=== PATIENT | male | born 1945 | race Two or more races ===

== ENCOUNTER → 2016-04-30 | Outpatient (CLI) | payer MEDICARE, OTHER ==
[~2016-04-30] MED LIST: ALLOPURINOL100 M1 ORAL; ASPIRIN81 M1 ORAL; ATOVASTATIN; ATROVENT HFA12.9 GM IH; CALCIUM +D & M1 EAC1 ORAL; CARAFATE1 G1 ORAL; CENTRUM COMPLE1 EAC1 PO; CLOPIDOGREL75 MG PO; COLCRYS0.6 MG ORAL; COMBIGAN EYE DRO5 ML OP; DOCUSATE SODIU100 MG ORAL; ESCITALOPRAM OX10 MG ORAL; FEOSOL1 TAB ORAL; FLUOXETINE HCL20 M1 ORAL; FOLIC ACID1 MG ORAL; FUROSEMIDE40 MG ORAL; GABAPENTIN300 MG ORAL; HUMALOG100 UNIT/2 SUBQ; HYDRALAZINE HCL25 M1 PO; ILEVRO1.7 ML OP; ISOSORBIDE DINIT5 MG PO; LANTUS100 UNIT/1 SUBQ; LIPITOR80 MG ORAL; LIPITOR80 MG PO; LOVAZA1 GM PO; METOLAZONE5 MG PO; METOPROLOL SUC100 MG ORAL; METOPROLOL TART50 MG ORAL; MINOXIDIL; MINOXIDIL2.5 MG PO; MINOXIDIL60 ML TP; NEPHRO-VITE TA0.8 MG PO; NEPHROVITE1 TAB ORAL; NEXIUM20 MG ORAL; NORVASC10 MG ORAL; NOVOLOG100 UNIT/4 SQ; OMEGA 3 FISH O1 EACH PO; OMEPRAZOLE40 M1 ORAL; PENTOXIFYLLINE400 MG ORAL; PLAVIX75 MG ORAL; SENSIPAR30 MG ORAL; SENSIPAR60 MG ORAL; SERTRALINE HCL25 MG ORAL; SERTRALINE HCL25 MG PO; SPIRIVA18 MCG INH; TERAZOSIN HCL10 MG PO; TRAZODONE HCL150 MG ORAL; VITAMIN D1000 UNI1 ORAL
[2016-04-30 14:54] VITALS: BP 104/42
--- NOTE | 2016-04-30 15:36 | GI Progress Note ---
Assessment/Plan Problems: (1) GERD (gastroesophageal reflux disease) ICD Codes: K21.9 - Gastro-esophageal reflux disease without esophagitis SNOMED: 357289270 (2) Abdominal pain ICD Codes: R10.9 - Unspecified abdominal pain SNOMED: 23580727 (3) Constipation ICD Codes: K59.00 - Constipation, unspecified SNOMED: 35419530 (4) Dialysis patient ICD Codes: Z99.2 - Dependence on renal dialysis SNOMED: 366643631 (5) Diabetes mellitus ICD Codes: E11.9 - Type 2 diabetes mellitus without complications SNOMED: 40328355 (6) Submucosal lesion of stomach ICD Codes: K31.89 - Other diseases of stomach and duodenum SNOMED: 72952279 (7) S/P colonoscopic polypectomy ICD Codes: Z98.89 - Other specified postprocedural states SNOMED: 70197549, 958338174, 083145740, [id number] Status: stable Status Narrative Seen with Dr. Camarena. Assessment/Plan scheduled for EUS to evaluated Gastric submucosal lesion 05/12/15 ordered abdominal U/S for abnormal LFTs labs to be drawn on procedure date; CBC, CMP, Hep panel, iron panel. The patient was seen and examined at bedside and all new and available data was reviewed in the patients chart. I agree with the above findings, impression and plan. (Patient seen earlier today. Signature stamp does not reflect patient encounter time.). -Ezra Camarena MD Subjective Gastrointestinal/Abdominal: Reports: abdominal pain Subjective alternating diarrhea and constipation Objective Last 24 Hour Vital Signs Date Time Temp Pulse Resp B/P Pulse Ox O2 Delivery O2 Flow Rate FiO2 04/30/16 14:54 98.6 59 18 104/42 96 General Appearance: no apparent distress, alert Cardiovascular: normal rate Respiratory/Chest: normal breath sounds, no respiratory distress Abdominal Exam: normal bowel sounds, non tender, soft Extremities: normal range of motion Objective Dialysis T,TR, Sat scheduled EGD/EUS in Jan 2016, but was cancelled by patient because of sickness. ETOH abuse >> quit 10 year ago Pricilla Pollack N.P. Apr 30, 2016 15:36 EZRA CAMARENA May 05, 2016 08:13
== END | disposition home or self-care (01) ==
LOC: PAN 14:20
DX: K21.9 Gastro-esophageal reflux disease without esophagitis (principal); R10.9 Unspecified abdominal pain; K59.00 Constipation, unspecified; Z99.2 Dependence on renal dialysis; E11.9 Type 2 diabetes mellitus without complications; K31.89 Other diseases of stomach and duodenum; Z98.890 Other specified postprocedural states
CPT/HCPCS: 99212

== ENCOUNTER 2016-09-06 19:14 | Inpatient (IN) | payer MEDICARE, OTHER ==
[~2016-09-06] VITALS: Ht 175.3 cm; Wt 84.1 kg
[~2016-09-06 19:14] MED LIST changes: +Calcium Chloride 10% 10ml carpuject IVP ONE; +EPINEPHrine 1mg/10ml Syringe IV ONE; +Sodium Bicarbonate 50ml Carp ONE
--- NOTE | 2016-09-06 19:49 | Emergency Room Report ---
History of Present Illness General Chief Complaint: Dyspnea/Respdistress Source: Patient Present Illness HPI Patient is a 71-year-old male presented after increased generalized weakness and dyspnea. Patient was having difficulty standing. Patient had prior history of end-stage renal disease and had missed dialysis. The patient is also diabetic. He is normally dialyzed Thursday. The patient was having difficulty standing complained of some buttock pain after a recent fall. He denied as pain to a specific location of his lower extremities. The patient had been noted be increased shortness of breath for several hours Allergies: Coded Allergies: NIACIN (Verified Allergy, Unknown, ITCHING, 01/30/12) Patient History Past Medical History: DM, HTN Reviewed Nursing Documentation: PMH: Agreed, PSxH: Agreed Nursing Documentation-PMH Hx Cardiac Problems: Yes - HEART FAILURE Hx Hypertension: Yes Hx Asthma: No Hx Diabetes: Yes Hx Cancer: No Hx Gastrointestinal Problems: Yes Hx Dialysis: Yes - Hx Neurological Problems: No Hx Cerebrovascular Accident: Yes - 2006 Review of Systems All Other Systems: negative except mentioned in HPI Physical Exam Vital Signs Date Time Temp Pulse Resp B/P Pulse Ox O2 Delivery O2 Flow Rate FiO2 09/06/16 19:25 99.0 77 16 158/64 88 Room Air Sp02 EP Interpretation: reviewed, normal General Appearance: normal inspection, alert, moderate distress, Chronically Ill Head: atraumatic ENT: normal ENT inspection, hearing grossly normal, normal voice Neck: normal inspection, full range of motion, supple, no bony tend Respiratory: normal inspection, no retraction, respiratory distress, rhonchi Cardiovascular #1: regular rate, rhythm, edema Gastrointestinal: normal inspection, normal bowel sounds, non tender, soft, no guarding, no hernia Genitourinary: no CVA tenderness Musculoskeletal: normal inspection, back normal, normal range of motion Neurologic: normal inspection, alert, responsive, speech normal, motor weakness - bilateral lower extremities Psychiatric: normal inspection, judgement/insight normal, mood/affect normal Skin: no rash Medical Decision Making Diagnostic Impression: Primary Impression: Diabetes mellitus Additional Impressions: CHF (congestive heart failure) ESRD (end stage renal disease) Lower extremity pain ER Course Patient presented for shortness of breath. Differential included but was not limited to anemia, pneumonia, pneumothorax, myocardial infarction, pericardial effusion, congestive heart failure, acidosis. Because of complexity of patient' s case laboratory testing and imaging studies were ordered.The patient required assistance and to the [facility] because of weakness . I EKG interpreted by me showed normal sinus rhythm with a rate of 77 there was noted the some the lateral T-wave inversion. There were slight peaking T wave changes.Patient was given a breathing treatment with albuterol. The patient was noted to be initially hypoxic with O2 saturation in the 80s. He was started on BiPAP. Patient was given IV calcium for hyperkalemia as well as on albuterol nebulizer treatments. The patient was discussed with Dr. Harrison Delatorre for inpatient management due to patient's fluid overload as well as hyperkalemia management. Dr. Delatorre was advised the patient would need emergent dialysis due to patient's fluid overload and hyperkalemia. The patient is admitted to [facility] on BiPAP. Labs Test 09/06/16 19:45 09/07/16 00:35 White Blood Count 12.6 K/UL (4.8-10.8) Red Blood Count 4.29 M/UL (4.70-6.10) Hemoglobin 13.9 G/DL (14.2-18.0) Hematocrit 41.0 % (42.0-52.0) Mean Corpuscular Volume 96 FL (80-99) Mean Corpuscular Hemoglobin 32.5 PG (27.0-31.0) Mean Corpuscular Hemoglobin Concent 33.9 G/DL (32.0-36.0) Red Cell Distribution Width 17.5 % (11.6-14.8) Platelet Count 139 K/UL (150-450) Mean Platelet Volume 6.5 FL (6.5-10.1) Neutrophils (%) (Auto) 85.7 % (45.0-75.0) Lymphocytes (%) (Auto) 6.9 % (20.0-45.0) Monocytes (%) (Auto) 6.5 % (1.0-10.0) Eosinophils (%) (Auto) 0.1 % (0.0-3.0) Basophils (%) (Auto) 0.8 % (0.0-2.0) Prothrombin Time 11.4 SEC (9.30-11.50) Prothromb Time International Ratio 1.1 (0.9-1.1) Activated Partial Thromboplast Time 31 SEC (23-33) Sodium Level 139 mEQ/L (135-145) Potassium Level 6.3 mEQ/L (3.4-4.9) Chloride Level 97 mEQ/L (98-107) Carbon Dioxide Level 25 mEQ/L (20-30) Anion Gap 17 (5-15) Blood Urea Nitrogen 36 mg/dL (7-23) Creatinine 7.6 mg/dL (0.7-1.2) Estimat Glomerular Filtration Rate 7.1 mL/min (>60) Glucose Level 91 mg/dL (74-106) Calcium Level 9.8 mg/dL (8.6-10.2) Total Bilirubin 0.5 mg/dL (0.0-1.2) Aspartate Amino Transf (AST/SGOT) 14 U/L (5-40) Alanine Aminotransferase (ALT/SGPT) 8 U/L (3-41) Alkaline Phosphatase 48 U/L (40-129) Troponin I < 0.30 ng/mL (<=0.30) Total Protein 7.1 g/dL (6.6-8.7) Albumin 4.1 g/dL (3.5-5.2) Globulin 3.0 g/dL Albumin/Globulin Ratio 1.3 (1.0-2.7) Arterial Blood pH 7.252 (7.350-7.450) Arterial Blood Partial Pressure CO2 53.2 mmHg (35.0-45.0) Arterial Blood Partial Pressure O2 172.1 mmHg (75.0-100.0) Arterial Blood HCO3 22.9 mmol/L (22.0-26.0) Arterial Blood Oxygen Saturation 98.2 % (92.0-98.0) Arterial Blood Base Excess -4.7 Chas Test Positive Chest X-Ray Diagnostic Results EP Interpretation: Yes Findings: no effusion, no pneumothorax, other - mild pulmonary edema vascular congestion Number of Views: 1 Last Vital Signs Date Time Temp Pulse Resp B/P Pulse Ox O2 Delivery O2 Flow Rate FiO2 09/06/16 19:25 99.0 77 16 158/64 88 Room Air Status: unchanged Disposition: ADMITTED INPATIENT Condition: Critical Dav Chang Sep 06, 2016 19:49
[2016-09-06 20:20] LABS: MEAN CORPUSCULAR HEMOGLOBIN 32.5 PG (27.0-31.0); MEAN CORPUSCULAR HGB CONC 33.9 G/DL (32.0-36.0); MEAN CORPUSCULAR VOLUME 96 FL (80-99); MEAN PLATELET VOLUME 6.5 FL (6.5-10.1); PLATELET COUNT 139 K/UL (150-450); RED BLOOD COUNT 4.29 M/UL (4.70-6.10); RED CELL DISTRIBUTION WIDTH 17.5 % (11.6-14.8); WHITE BLOOD COUNT 12.6 K/UL (4.8-10.8)
[2016-09-06 20:21] LABS: NEUTROPHILS % (AUTO) 85.7 % (45.0-75.0)
[2016-09-06 20:22] LABS: BASOPHILS % (AUTO) 0.8 % (0.0-2.0); EOSINOPHILS % (AUTO) 0.1 % (0.0-3.0); LYMPHOCYTES % (AUTO) 6.9 % (20.0-45.0); MONOCYTES % (AUTO) 6.5 % (1.0-10.0)
[2016-09-06 20:30] LABS: INR 1.1 (0.9-1.1); PROTHROMBIN TIME 11.4 SEC (9.30-11.50)
[2016-09-06 20:36] VITALS: BP 137/86
[2016-09-06 20:44] LABS: TROPONIN I < 0.30 ng/mL (<=0.30)
[2016-09-06] MEDS ORDERED: DuoNeb 0.5-3(2.5)mg/3ml neb HHN ONE (20:45)
[2016-09-06 20:47] LABS: ALBUMIN/GLOBULIN RATIO 1.3 (1.0-2.7); CALCIUM 9.8 mg/dL (8.6-10.2); CREATININE 7.6 mg/dL (0.7-1.2); GLOMERULAR FILTRATION RATE 7.1 mL/min (>60); TOTAL PROTEIN 7.1 g/dL (6.6-8.7)
[2016-09-06 20:52] LABS: POTASSIUM 6.3 mEQ/L (3.4-4.9)
[2016-09-06] MEDS ORDERED: Calcium Gluconate 1gm/10ml vial IVP ONE (21:00)
[2016-09-06] MEDS ORDERED: UNOBMED (21:59)
[2016-09-06 22:00] VITALS: BP 164/51
[2016-09-06 22:20] VITALS: BP 181/74
[2016-09-06] MEDS ORDERED: Miralax 17gm pkt ORAL PRN (23:00)
[2016-09-06 23:45] VITALS: BP 176/69
[2016-09-07] VITALS (26 sets, daily range): BP systolic 83–193; BP diastolic 29–103
[2016-09-07] MEDS ORDERED: Sodium Polystyrene Sulfonate 15gm Powder NG ONE
[2016-09-07 00:51] LABS: ABG BASE EXCESS -4.7; ABG PCO2 53.2 mmHg (35.0-45.0)
[2016-09-07 00:52] LABS: ABG ALLEN TEST POSITIVE
[2016-09-07] MEDS ORDERED: PROZAC20 MG ORAL (01:52)
[2016-09-07] MEDS ORDERED: CALCIUM600 M1 PO (01:52)
[2016-09-07] MEDS ORDERED: Heparin Sod 1000 units/ml 10ml INJ ONE (03:45)
--- NOTE | 2016-09-07 05:26 | Emergency Room Report ---
History of Present Illness General Chief Complaint: Dyspnea/Respdistress Source: Medical Record Present Illness HPI Patient is 71-year-old male recently seen by me in emergency Department who was noted to have bradycardic arrest after being admitted to [facility]. The patient was reportedly taken off of BiPAP after he poorly tolerated and refused further BiPAP.The patient was reportedly sitting on a bedside commode when he became unresponsive. The patient was noted to have become unresponsive. He was assisted to the floor by nursing staff. The patient was noted to have prior history of hyperkalemia and had previously been given IV calcium as well as albuterol for hyperkalemia. Allergies: Coded Allergies: NIACIN (Verified Allergy, Unknown, ITCHING, 01/30/12) Nursing Documentation-[facility] Past Medical History Deferred: Patient Unconscious Past Medical History: Deferred Hx Cardiac Problems: Yes Hx Hypertension: Yes Hx Asthma: No Hx Diabetes: Yes Hx Cancer: No Hx Gastrointestinal Problems: Yes Hx Dialysis: Yes - Hx Neurological Problems: No Hx Cerebrovascular Accident: Yes - 2006 Physical Exam Vital Signs Date Time Temp Pulse Resp B/P Pulse Ox O2 Delivery O2 Flow Rate FiO2 09/06/16 19:25 99.0 77 16 158/64 88 Room Air 09/06/16 19:30 2.0 09/06/16 20:47 50 Procedures CPR/Code Blue CPR/Code Blue Narrative See CODE BLUE narrative for the medications. The patient was given IV calcium as well as IV bicarbonate and single dose of IV epinephrine. Patient started on oxygen initially via [id number] and was subsequently intubated after laryngoscopy [id number] medication during code. The patient had a subsequent return spontaneous circulation. Dr. Harrison Delatorre was notified of the patient' s changes status as well as possibly requiring further imaging after being assisted to the floor. Intubation Intubation : Consent: Emergent Intubation Method: orotracheal Tube Size (cm): 8.0 Breath Sounds after Intubation: equal Intubation Complications: no complications Post Intubation Xray: Yes Progress/Xray Impression: x-ray imaging showed adequate endotracheal tube with worsen pulmonary edema Attempts: One Complications: None Medical Decision Making Diagnostic Impression: Primary Impression: Diabetes mellitus Additional Impressions: CHF (congestive heart failure) Lower extremity pain ESRD (end stage renal disease) Last Vital Signs Date Time Temp Pulse Resp B/P Pulse Ox O2 Delivery O2 Flow Rate FiO2 09/07/16 05:06 87 18 144/88 100 Mechanical Ventilator 80 09/07/16 04:02 99.0 09/06/16 22:35 4.0 Disposition: ADMITTED INPATIENT Condition: Critical Referrals: NOT CHOSEN IPA/,REFERRING (PCP) Dav Chang Sep 07, 2016 05:26
[2016-09-07 05:51] LABS: MEAN CORPUSCULAR HEMOGLOBIN 29.7 PG (27.0-31.0); MEAN CORPUSCULAR HGB CONC 31.2 G/DL (32.0-36.0); MEAN CORPUSCULAR VOLUME 95 FL (80-99); MEAN PLATELET VOLUME 7.4 FL (6.5-10.1); PLATELET COUNT 151 K/UL (150-450); RED BLOOD COUNT 4.39 M/UL (4.70-6.10); RED CELL DISTRIBUTION WIDTH 17.8 % (11.6-14.8); WHITE BLOOD COUNT 15.9 K/UL (4.8-10.8)
[2016-09-07 06:56] LABS: ALBUMIN/GLOBULIN RATIO 1.1 (1.0-2.7); CALCIUM 11.5 mg/dL (8.6-10.2); CREATININE 7.3 mg/dL (0.7-1.2); GLOMERULAR FILTRATION RATE 7.5 mL/min (>60)
[2016-09-07 07:02] LABS: POTASSIUM 6.7 mEQ/L (3.4-4.9)
[2016-09-07] MEDS: Atorvastatin 80mg tab ORAL SCH (08:46)
[2016-09-07] MEDS: Minoxidil 2.5mg tab ORAL SCH ×2 (08:46→18:00)
--- NOTE | 2016-09-07 10:09 | Consultation ---
Consult Note Assessment/Plan Renal consult dictated # [id number] CANDICE BREAUX Sep 07, 2016 10:09
[2016-09-07 10:17] LABS: BAND NEUTROPHILS % (MANUAL) 3 % (0-8); LYMPHOCYTES % (MANUAL) 2 % (20-45); NEUTROPHILS % (MANUAL) 94 % (45-75); TOTAL CELLS COUNTED 100
[2016-09-07 10:18] LABS: ANISOCYTOSIS 1+; BASOPHILS % (MANUAL) 0 % (0-2); EOSINOPHILS % (MANUAL) 0 % (0-3); PLATELET ESTIMATE ADEQUATE; PLATELET MORPHOLOGY NORMAL
[2016-09-07 10:22] LABS: ALBUMIN/GLOBULIN RATIO 1.1 (1.0-2.7); CALCIUM 10.2 mg/dL (8.6-10.2); GLOMERULAR FILTRATION RATE 11.5 mL/min (>60); POTASSIUM 4.8 mEQ/L (3.4-4.9)
--- NOTE | 2016-09-07 10:55 | Consultation ---
Consult Note Assessment/Plan [id number] vdrf code blue hyperkalemia rf on hd ?anoxic encephalopathy ?seizure dm, htn, hld htn KOLTON RENTERIA DO Sep 07, 2016 10:55
[2016-09-07] MEDS: LORazepam Inj 2mg/ml 1ml IV PRN ×3 (10:59→23:44)
--- NOTE | 2016-09-07 11:14 | Diagnostic Imaging Report ---
Indication: Tube placement Comparison: 09/06/16 A single view chest radiograph was obtained. Findings: Patchy interstitial alveolar infiltrates present cardiomegaly. Nasogastric tube, endotracheal tube and Gorge catheters are in good position. Impression: Infiltrates versus pulmonary edema. Tubes and lines satisfactory
--- NOTE | 2016-09-07 11:21 | Diagnostic Imaging Report ---
Indication: Dyspnea Comparison: None A single view chest radiograph was obtained. Findings: Interstitial edema is present with prominent vascularity and heart size. Right permacath is noted. Bones are osteopenic. Impression: Moderate interstitial edema
[2016-09-07 11:52] LABS: TROPONIN I < 0.30 ng/mL (<=0.30)
[2016-09-07 11:59] LABS: ABG ALLEN TEST POSITIVE; ABG BASE EXCESS 4.3; ABG PCO2 38.5 mmHg (35.0-45.0)
[2016-09-07] MEDS ORDERED: Phenytoin 1,000 MG in NS 275 ML IVPB ONE (12:00)
[2016-09-07] MEDS: Piperacillin/Tazobactam 2.25 GM in D5W 55 ML IVPB SCH ×2 (13:00→22:47)
[2016-09-07] MEDS ORDERED: Vancomycin 1gm/D5W 275ml IVPB ONE ×2 (14:00)
--- NOTE | 2016-09-07 15:17 | Neurology Progress Note ---
Objective Physical Exam Last Vital Signs Date Time Temp Pulse Resp B/P Pulse Ox O2 Delivery O2 Flow Rate FiO2 09/07/16 14:00 99.8 09/07/16 13:13 71 18 60 09/07/16 12:00 136/60 100 Mechanical Ventilator 09/06/16 22:35 4.0 Laboratory Tests Test 09/06/16 19:45 09/07/16 00:35 09/07/16 03:40 09/07/16 09:40 White Blood Count 12.6 K/UL (4.8-10.8) H 15.9 K/UL (4.8-10.8) H Red Blood Count 4.29 M/UL (4.70-6.10) L 4.39 M/UL (4.70-6.10) L Hemoglobin 13.9 G/DL (14.2-18.0) L 13.0 G/DL (14.2-18.0) L Hematocrit 41.0 % (42.0-52.0) L 41.8 % (42.0-52.0) L Mean Corpuscular Volume 96 FL (80-99) 95 FL (80-99) Mean Corpuscular Hemoglobin 32.5 PG (27.0-31.0) H 29.7 PG (27.0-31.0) Mean Corpuscular Hemoglobin Concent 33.9 G/DL (32.0-36.0) 31.2 G/DL (32.0-36.0) L Red Cell Distribution Width 17.5 % (11.6-14.8) H 17.8 % (11.6-14.8) H Platelet Count 139 K/UL (150-450) L 151 K/UL (150-450) Mean Platelet Volume 6.5 FL (6.5-10.1) 7.4 FL (6.5-10.1) Neutrophils (%) (Auto) 85.7 % (45.0-75.0) H % (45.0-75.0) Lymphocytes (%) (Auto) 6.9 % (20.0-45.0) L % (20.0-45.0) Monocytes (%) (Auto) 6.5 % (1.0-10.0) % (1.0-10.0) Eosinophils (%) (Auto) 0.1 % (0.0-3.0) % (0.0-3.0) Basophils (%) (Auto) 0.8 % (0.0-2.0) % (0.0-2.0) Prothrombin Time 11.4 SEC (9.30-11.50) Prothromb Time International Ratio 1.1 (0.9-1.1) Activated Partial Thromboplast Time 31 SEC (23-33) Sodium Level 139 mEQ/L (135-145) 140 mEQ/L (135-145) 148 mEQ/L (135-145) H Potassium Level 6.3 mEQ/L (3.4-4.9) *H 6.7 mEQ/L (3.4-4.9) *H 4.8 mEQ/L (3.4-4.9) Chloride Level 97 mEQ/L (98-107) L 99 mEQ/L (98-107) 104 mEQ/L (98-107) Carbon Dioxide Level 25 mEQ/L (20-30) 22 mEQ/L (20-30) 28 mEQ/L (20-30) Anion Gap 17 (5-15) H 19 (5-15) H 16 (5-15) H Blood Urea Nitrogen 36 mg/dL (7-23) H 37 mg/dL (7-23) H 24 mg/dL (7-23) H Creatinine 7.6 mg/dL (0.7-1.2) H 7.3 mg/dL (0.7-1.2) H 5.0 mg/dL (0.7-1.2) H Estimat Glomerular Filtration Rate 7.1 mL/min (>60) 7.5 mL/min (>60) 11.5 mL/min (>60) Glucose Level 91 mg/dL (74-106) 106 mg/dL (74-106) 152 mg/dL (74-106) H Calcium Level 9.8 mg/dL (8.6-10.2) 11.5 mg/dL (8.6-10.2) H 10.2 mg/dL (8.6-10.2) Total Bilirubin 0.5 mg/dL (0.0-1.2) 0.8 mg/dL (0.0-1.2) 0.9 mg/dL (0.0-1.2) Aspartate Amino Transf (AST/SGOT) 14 U/L (5-40) 78 U/L (5-40) H 61 U/L (5-40) H Alanine Aminotransferase (ALT/SGPT) 8 U/L (3-41) 70 U/L (3-41) H 64 U/L (3-41) H Alkaline Phosphatase 48 U/L (40-129) 58 U/L (40-129) 54 U/L (40-129) Troponin I < 0.30 ng/mL (<=0.30) < 0.30 ng/mL (<=0.30) Total Protein 7.1 g/dL (6.6-8.7) 7.0 g/dL (6.6-8.7) 7.0 g/dL (6.6-8.7) Albumin 4.1 g/dL (3.5-5.2) 3.7 g/dL (3.5-5.2) 3.7 g/dL (3.5-5.2) Globulin 3.0 g/dL 3.3 g/dL 3.3 g/dL Albumin/Globulin Ratio 1.3 (1.0-2.7) 1.1 (1.0-2.7) 1.1 (1.0-2.7) Arterial Blood pH 7.252 (7.350-7.450) Arterial Blood Partial Pressure CO2 53.2 mmHg (35.0-45.0) H Arterial Blood Partial Pressure O2 172.1 mmHg (75.0-100.0) H Arterial Blood HCO3 22.9 mmol/L (22.0-26.0) Arterial Blood Oxygen Saturation 98.2 % (92.0-98.0) H Arterial Blood Base Excess -4.7 Chas Test Positive Differential Total Cells Counted 100 Neutrophils % (Manual) 94 % (45-75) H Lymphocytes % (Manual) 2 % (20-45) L Monocytes % (Manual) 1 % (1-10) Eosinophils % (Manual) 0 % (0-3) Basophils % (Manual) 0 % (0-2) Band Neutrophils 3 % (0-8) Platelet Estimate Adequate Platelet Morphology Normal Anisocytosis 1+ Test 09/07/16 11:50 Arterial Blood pH 7.479 (7.350-7.450) Arterial Blood Partial Pressure CO2 38.5 mmHg (35.0-45.0) Arterial Blood Partial Pressure O2 158.3 mmHg (75.0-100.0) H Arterial Blood HCO3 28.0 mmol/L (22.0-26.0) H Arterial Blood Oxygen Saturation 98.2 % (92.0-98.0) H Arterial Blood Base Excess 4.3 Chas Test Positive Impression/Recommendations Problems: (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
[2016-09-07] MEDS ORDERED: Tubing IV Secondary IV ONE (15:29)
--- NOTE | 2016-09-07 15:31 | History & Physical ---
History and Physical History & Physicial Dictated for Int Med-Dr [facility] ICU no [id number]. FILIBERTO CLANCY Sep 07, 2016 15:31
--- NOTE | 2016-09-07 16:14 | Cardiology Progress Note ---
Subjective Subjective [id number] Objective Last 24 Hour Vital Signs Date Time Temp Pulse Resp B/P Pulse Ox O2 Delivery O2 Flow Rate FiO2 09/07/16 15:18 74 18 60 09/07/16 15:00 74 18 93/29 100 Mechanical Ventilator 80 09/07/16 14:00 99.8 09/07/16 14:00 86 18 90/39 100 Mechanical Ventilator 80 09/07/16 13:13 71 18 60 09/07/16 13:00 99.8 68 18 83/53 100 Mechanical Ventilator 80 09/07/16 12:00 100.1 81 18 136/60 100 Mechanical Ventilator 80 09/07/16 12:00 78 09/07/16 12:00 60 09/07/16 11:30 82 18 60 09/07/16 11:00 86 18 133/46 100 Mechanical Ventilator 80 09/07/16 10:00 91 22 149/54 100 Mechanical Ventilator 80 09/07/16 09:00 88 18 60 09/07/16 09:00 84 22 140/96 100 Mechanical Ventilator 80 09/07/16 08:46 152/101 09/07/16 08:46 88 152/101 09/07/16 08:00 98.5 90 21 161/78 100 Mechanical Ventilator 80 09/07/16 08:00 82 09/07/16 07:15 92 18 70 09/07/16 07:12 Mechanical Ventilator 80 09/07/16 07:07 98.0 89 21 152/100 Mechanical Ventilator 80 09/07/16 07:06 85 22 147/103 100 Mechanical Ventilator 80 09/07/16 06:00 88 18 141/84 100 Mechanical Ventilator 80 09/07/16 05:06 87 18 144/88 100 Mechanical Ventilator 80 09/07/16 04:55 87 25 80 09/07/16 04:04 80 09/07/16 04:03 83 09/07/16 04:02 99.0 83 18 180/75 100 Mechanical Ventilator 80 09/07/16 03:30 98.8 83 25 180/75 99 Mechanical Ventilator 80 09/07/16 03:30 Mechanical Ventilator 80 09/07/16 03:00 74 18 188/61 100 Mechanical Ventilator 80 09/07/16 02:40 73 20 80 09/07/16 02:07 70 18 193/81 100 Mechanical Ventilator 80 09/07/16 01:00 63 18 174/43 100 Mechanical Ventilator 100 09/07/16 00:55 67 18 80 09/07/16 00:00 53 18 144/46 100 Mechanical Ventilator 100 09/07/16 00:00 100 09/06/16 23:55 70 09/06/16 23:48 75 19 100 09/06/16 23:45 98.2 62 22 176/69 100 Mechanical Ventilator 100 09/06/16 22:35 99.1 79 24 164/51 97 Bi-pap 4.0 50 09/06/16 22:20 99.0 81 26 181/74 99 Non-Rebreather 15.0 100 09/06/16 22:00 79 24 164/51 97 Bi-pap 50 09/06/16 21:05 79 30 100 Bi-pap 50 09/06/16 20:58 76 33 97 Bi-pap 50 09/06/16 20:58 50 09/06/16 20:58 76 33 Bi-pap 50 09/06/16 20:47 75 32 Bi-pap 50 09/06/16 20:47 75 32 99 Facial 50 09/06/16 20:47 50 09/06/16 20:36 99.1 79 20 137/86 92 Nasal Cannula 4.0 09/06/16 19:30 77 16 Nasal Cannula 2.0 09/06/16 19:25 99.0 77 16 158/64 88 Room Air Intake and Output 09/06/16 09/07/16 19:00 07:00 Intake Total 160 ml Output Total 0 ml Balance 160 ml Intake Other 160 ml Output Urine Total 0 ml # Bowel Movements 1 Laboratory Tests Test 09/06/16 19:45 09/07/16 00:35 09/07/16 03:40 09/07/16 09:40 White Blood Count 12.6 K/UL (4.8-10.8) H 15.9 K/UL (4.8-10.8) H Red Blood Count 4.29 M/UL (4.70-6.10) L 4.39 M/UL (4.70-6.10) L Hemoglobin 13.9 G/DL (14.2-18.0) L 13.0 G/DL (14.2-18.0) L Hematocrit 41.0 % (42.0-52.0) L 41.8 % (42.0-52.0) L Mean Corpuscular Volume 96 FL (80-99) 95 FL (80-99) Mean Corpuscular Hemoglobin 32.5 PG (27.0-31.0) H 29.7 PG (27.0-31.0) Mean Corpuscular Hemoglobin Concent 33.9 G/DL (32.0-36.0) 31.2 G/DL (32.0-36.0) L Red Cell Distribution Width 17.5 % (11.6-14.8) H 17.8 % (11.6-14.8) H Platelet Count 139 K/UL (150-450) L 151 K/UL (150-450) Mean Platelet Volume 6.5 FL (6.5-10.1) 7.4 FL (6.5-10.1) Neutrophils (%) (Auto) 85.7 % (45.0-75.0) H % (45.0-75.0) Lymphocytes (%) (Auto) 6.9 % (20.0-45.0) L % (20.0-45.0) Monocytes (%) (Auto) 6.5 % (1.0-10.0) % (1.0-10.0) Eosinophils (%) (Auto) 0.1 % (0.0-3.0) % (0.0-3.0) Basophils (%) (Auto) 0.8 % (0.0-2.0) % (0.0-2.0) Prothrombin Time 11.4 SEC (9.30-11.50) Prothromb Time International Ratio 1.1 (0.9-1.1) Activated Partial Thromboplast Time 31 SEC (23-33) Sodium Level 139 mEQ/L (135-145) 140 mEQ/L (135-145) 148 mEQ/L (135-145) H Potassium Level 6.3 mEQ/L (3.4-4.9) *H 6.7 mEQ/L (3.4-4.9) *H 4.8 mEQ/L (3.4-4.9) Chloride Level 97 mEQ/L (98-107) L 99 mEQ/L (98-107) 104 mEQ/L (98-107) Carbon Dioxide Level 25 mEQ/L (20-30) 22 mEQ/L (20-30) 28 mEQ/L (20-30) Anion Gap 17 (5-15) H 19 (5-15) H 16 (5-15) H Blood Urea Nitrogen 36 mg/dL (7-23) H 37 mg/dL (7-23) H 24 mg/dL (7-23) H Creatinine 7.6 mg/dL (0.7-1.2) H 7.3 mg/dL (0.7-1.2) H 5.0 mg/dL (0.7-1.2) H Estimat Glomerular Filtration Rate 7.1 mL/min (>60) 7.5 mL/min (>60) 11.5 mL/min (>60) Glucose Level 91 mg/dL (74-106) 106 mg/dL (74-106) 152 mg/dL (74-106) H Calcium Level 9.8 mg/dL (8.6-10.2) 11.5 mg/dL (8.6-10.2) H 10.2 mg/dL (8.6-10.2) Total Bilirubin 0.5 mg/dL (0.0-1.2) 0.8 mg/dL (0.0-1.2) 0.9 mg/dL (0.0-1.2) Aspartate Amino Transf (AST/SGOT) 14 U/L (5-40) 78 U/L (5-40) H 61 U/L (5-40) H Alanine Aminotransferase (ALT/SGPT) 8 U/L (3-41) 70 U/L (3-41) H 64 U/L (3-41) H Alkaline Phosphatase 48 U/L (40-129) 58 U/L (40-129) 54 U/L (40-129) Troponin I < 0.30 ng/mL (<=0.30) < 0.30 ng/mL (<=0.30) Total Protein 7.1 g/dL (6.6-8.7) 7.0 g/dL (6.6-8.7) 7.0 g/dL (6.6-8.7) Albumin 4.1 g/dL (3.5-5.2) 3.7 g/dL (3.5-5.2) 3.7 g/dL (3.5-5.2) Globulin 3.0 g/dL 3.3 g/dL 3.3 g/dL Albumin/Globulin Ratio 1.3 (1.0-2.7) 1.1 (1.0-2.7) 1.1 (1.0-2.7) Arterial Blood pH 7.252 (7.350-7.450) Arterial Blood Partial Pressure CO2 53.2 mmHg (35.0-45.0) H Arterial Blood Partial Pressure O2 172.1 mmHg (75.0-100.0) H Arterial Blood HCO3 22.9 mmol/L (22.0-26.0) Arterial Blood Oxygen Saturation 98.2 % (92.0-98.0) H Arterial Blood Base Excess -4.7 Chas Test Positive Differential Total Cells Counted 100 Neutrophils % (Manual) 94 % (45-75) H Lymphocytes % (Manual) 2 % (20-45) L Monocytes % (Manual) 1 % (1-10) Eosinophils % (Manual) 0 % (0-3) Basophils % (Manual) 0 % (0-2) Band Neutrophils 3 % (0-8) Platelet Estimate Adequate Platelet Morphology Normal Anisocytosis 1+ Test 09/07/16 11:50 Arterial Blood pH 7.479 (7.350-7.450) Arterial Blood Partial Pressure CO2 38.5 mmHg (35.0-45.0) Arterial Blood Partial Pressure O2 158.3 mmHg (75.0-100.0) H Arterial Blood HCO3 28.0 mmol/L (22.0-26.0) H Arterial Blood Oxygen Saturation 98.2 % (92.0-98.0) H Arterial Blood Base Excess 4.3 Chas Test Positive JUANA YANG Sep 07, 2016 16:14
[2016-09-07] MEDS: NovoLOG Insulin Flexpen SUBQ SCH ×2 (18:31→23:40)
--- NOTE | 2016-09-07 21:00 | Consultation ---
DATE OF CONSULTATION: NEPHROLOGY CONSULTATION REFERRING PHYSICIAN: Eduar Vail M.D. REASON FOR CONSULTATION: End-stage renal disease , requiring hemodialysis. HISTORY OF PRESENT ILLNESS: This is a 71-year-old Faroese male who has history of end-stage renal disease and is on hemodialysis every Thursday, , and Thursday however the patient has been missing dialysis frequently and has been noncompliant with dialysis. He had a previous admission to [facility] for the same problem when he had to be intubated for fluid overload. He presented to the emergency room yesterday with dyspnea and weakness and was found to have potassium 6.3. He was put on BiPAP. While he was on the floor, he took all of his BiPAP and he went to the bathroom and he collapsed and was found to have cardiopulmonary arrest requiring CPR and the patient was intubated. The patient is in the intensive care unit. He was in dialyzed early this morning. PAST MEDICAL HISTORY: History of congestive heart failure, hypertension, diabetes mellitus, reported history of CVA. MEDICATIONS: Reviewed in the EMR. SOCIAL HISTORY: The patient lives at home with his . No history of smoking or alcohol abuse. ALLERGIES: Niacin. REVIEW OF SYSTEMS: Unobtainable. PHYSICAL EXAMINATION: GENERAL: The patient is an elderly male. He is twitching. He is on ventilator. VITAL SIGNS: Blood pressure 140/96, pulse 88, temperature 98.5, respiratory rate 21. HEENT: [place] conjunctivae. Anicteric sclerae. NECK: Supple. LUNGS: Coarse breath sounds bilaterally. HEART: S1 and S2 without murmurs or rubs. ABDOMEN: Soft and nontender. EXTREMITIES: Bilateral pedal edema. LABORATORY FINDINGS: Chemistry panel shows serum sodium 139, potassium 3.3, chloride 97, CO2 25, BUN 36, creatinine 2.6, blood sugar is 91. CBC shows a WBC of 15.9, hematocrit 41.8, hemoglobin 13, platelets 151,000. ASSESSMENT: This is a 71-year-old male who was admitted with fluid overload and hyperkalemia, noncompliant with dialysis. He is intubated now status post arrest. He was dialyzed early this morning. He has twitching, question is if he has anoxic encephalopathy. He has leukocytosis with possibility of aspiration pneumonia. PLAN: The patient will be in the intensive care unit on full ventilatory support. A neurology consultation will be obtained. I will diurese the patient as needed. ID consultation will be obtained. The case was discussed with the intensive care unit RN. Harrison Delatorre M.D. DR: Lorenzo JOB#: [id number] CC: ELTON
--- NOTE | 2016-09-07 21:00 | Consultation ---
DATE OF CONSULTATION: 09/07/2016 INFECTIOUS DISEASE CONSULTATION: PRIMARY ATTENDING PHYSICIAN: Harrison Delatorre M.D. REASON FOR CONSULT: Aspiration pneumonia. HISTORY OF PRESENT ILLNESS: The patient is a 71-year-old male with history of end-stage renal disease noncompliant with hemodialysis came yesterday to ER with shortness of breath, increased weakness, difficulty of standing. He was found to have hyperkalemia. The patient was put on BiPAP but was coded with bradycardia and intubated. Currently, he is ICU, not a source of history. PAST MEDICAL HISTORY: Significant for end-stage renal disease on hemodialysis, diabetes mellitus, and CHF. MEDICATIONS: Getting amlodipine, atorvastatin, minoxidil , Tylenol, and MiraLAX. REVIEW OF SYSTEMS: No other history is obtainable by the patient . PHYSICAL EXAMINATION: VITAL SIGNS: Temperature 98.5 degrees, pulse 88, and blood pressure 140/96. GENERAL: The patient seems to be well-developed. HEAD AND NECK: Orally intubated. [place] right conjunctivae. LUNGS: Clear, on mechanical ventilator. HEART: He has normal rate. He has hemodialysis catheter in the right side, seems to be PermCath . ABDOMEN: Soft and nontender. EXTREMITIES: He has no edema. LABORATORY DATA: ABG shows pH of 7.252, pCO2 of 53.2, and pO2 172. Sodium of 140, potassium 6.7, BUN 37, creatinine 7.3, and bicarb 22. WBC 15.9, hemoglobin 13, hematocrit 41.8, and platelets 151,000. Chest x-ray showed congestion . IMPRESSION: 1. Probable aspiration pneumonia. The patient has also diastolic congestive heart failure. 2. End-stage renal disease on hemodialysis . 3. Hyperkalemia. 4. Diabetes mellitus. 5. Status post Code because of bradycardia . 6. Hypercapnic respiratory failure. RECOMMENDATION: We will start on Zosyn. We will send sputum culture. Case was discussed with primary doctor. At the end of my examination, I thank Dr. Delatorre, for involving me in the care of this patient. José Miguel Delatorre M.D. DR: Elijah JOB#: [id number] CC: ELTON
[2016-09-07] MEDS: Phenytoin 100 MG in NS 55 ML IVPB SCH (21:40)
--- NOTE | 2016-09-07 22:00 | Consultation ---
DATE OF CONSULTATION: 09/07/2016 PULMONARY CRITICAL CARE CONSULT URGENTLY REQUESTED: REASON FOR CONSULTATION: Respiratory failure and Code blue. HISTORY OF PRESENT ILLNESS: The patient is a 71-year-old gentleman was admitted over night with hyperkalemia. He was admitted to [facility] and unfortunately was placed on BiPAP, which he was not tolerating and refused further wear and subsequently had a bradycardic cardiac arrest. He was intubated and transferred to the ICU currently with tonic clonic movements suspicious for seizure activity. Neurology evaluation is pending at this time. In the emergency room, per the emergency record he was given IV calcium and albuterol per the emergency room record. PAST MEDICAL HISTORY: History coronary disease, cardiomyopathy, hypertension, diabetes, renal failure on dialysis, and stroke in 2006. MEDICATIONS: His present and past medications have been reviewed and reconciled are documented in terms of dose and frequency. ALLERGIES: Niacin. FAMILY HISTORY: Unavailable due to the patient being unresponsive. REVIEW OF SYSTEMS: Otherwise review of systems are unavailable due to the patient being intubated and unresponsive. PHYSICAL EXAMINATION: GENERAL: At the time of exam, he is again with tonic-clonic movements and twitching. He does not follow commands. VITAL SIGNS: He is currently afebrile, pulse is 88, blood pressure is 140/96, he is currently on the ventilator. HEENT: His pupils are sluggish. His oropharynx is moist. LUNGS: Decreased at the bases. No wheezes present. HEART: Regular without murmur. ABDOMEN: Soft and nontender. Bowel sounds. EXTREMITIES: No edema . NEUROLOGIC: He does not follow commands. Tonic-clonic movements noted and twitching as well. SKIN: No skin rashes or lesions are present. LABORATORY AND DIAGNOSTIC DATA: His laboratory values at this time, white count 15.9, hemoglobin 13, and platelets 151,000. His ABG is 7.25, pCO2 53, and pO2 is 172. His sodium is 148, potassium 4.8, chloride 104, bicarb 28, BUN 24, creatinine 5, glucose 151. His AST is 61, ALT 54, and alkaline phosphatase is 54. Troponin yesterday afternoon was negative but no repeat levels been obtained. His INR is 1.1. A chest x-ray is not available for review. An echo from 2016 noted an EF of 17% . ASSESSMENT AND PLAN: 1. Status post cardiac arrest. 2. Renal failure with hyperkalemia. 3. Respiratory failure. 4. Anoxic encephalopathy. 5. Possible seizure due to the above. 6. Coronary artery disease. 7. History of cardiomyopathy. 8. Diabetes. 9. Hypertension. PLAN: Plan for the patient, we will review the imaging studies, check a repeat ABG and DVT prophylaxis. He was dialyzed today by the Renal service. NPO. Aspiration precautions. Ativan for seizure activity. EEG and Neurology evaluation as well CT of the head. Check blood urine and sputum cultures and initiate IV antibiotics for possible aspiration, nebulizer treatments and we will continue monitor the patient. Prognosis is very guarded. Greater than 75 minutes of critical care time spent with the patient reviewing the medical record, discussing with specialty sales consultant in the case and nursing staff. Xenia Joyner D.O. DR: Jesse JOB#: [id number] CC:
--- NOTE | 2016-09-07 23:30 | History and Physical Report ---
DATE OF ADMISSION: 09/06/2016 CHIEF COMPLAINT: The patient is a 71-year-old Yemeni male with history of end-stage renal disease, presents with chief complaint of shortness of breath and weakness. HISTORY OF PRESENT ILLNESS: The patient has end-stage renal disease. The patient is currently on dialysis every Thursday, , and Thursday. The patient apparently missed his dialysis yesterday. The patient presented to [facility] emergency room complaining of increased shortness of breath and weakness. The patient was initially admitted to the [facility]. The patient was then found unresponsive sitting on the bedside commode. A code blue was called. The patient is transferred to the intensive care unit. The patient is currently intubated and sedated. The patient is admitted with shortness of breath, weakness, and now respiratory failure. REVIEW OF SYSTEMS: Constitutional, unable to assess secondary to patient's mental status. PAST MEDICAL HISTORY: Significant for: 1. Congestive heart failure. 2. End-stage renal disease. 3. Coronary artery disease. 4. Diabetes type 2. 5. Hypercholesterolemia. 6. Chronic obstructive pulmonary disease. 7. Hypertension. 8. Benign prostatic hypertrophy. PAST SURGICAL HISTORY: Significant for arteriovenous shunt for dialysis. CURRENT MEDICATIONS: 1. Allopurinol 100 mg one tablet p.o. daily. 2. Norvasc 10 mg one tablet p.o. daily. 3. Atorvastatin 80 mg one tablet p.o. daily. 4. Combigan eyedrops twice daily. 5. Calcium carbonate 600 mg one tablet p.o. 3 times daily. 6. Vitamin D 1000 units p.o. daily. 7. Sensipar 30 mg one tablet p.o. daily. 8. Lexapro 10 mg one tablet p.o. daily. 9. Iron sulfate 325 mg one tablet p.o. daily. 10. Prozac 20 mg one tablet p.o. daily. 11. Folic acid 1 mg one tablet p.o. daily. 12. Lasix 80 mg one tablet p.o. daily. 13. Gabapentin 400 mg one tablet p.o. 3 times daily. 14. NovoLog sliding scale. 15. Lantus insulin 35 units subcutaneously at bedtime. 16. Atrovent meter dose inhaler two puffs p.o. q.4 hours p.r.n. 17. Minoxidil 2.5 mg one tablet p.o. twice daily. 18. Ilevro 1.7 milliliters daily. 19. Davey-3 fatty acid one tablet p.o. daily. 20. Omeprazole 40 mg one tablet p.o. daily. 21. 400 milligram one tablet p.o. 3 times daily. 22. Zoloft 100 mg one tablet p.o. daily. 23. Terazosin 10 mg one tablet p.o. at bedtime. 24. Trazodone 50 mg one tablet p.o. at bedtime. 25. Vitamin B complex one tablet p.o. daily. ALLERGIES: Niacin. SOCIAL HISTORY: The patient is . The patient denies tobacco or alcohol use. Patient quit smoking 12 years ago. The patient lives at home with his . PHYSICAL EXAMINATION: VITAL SIGNS: Temperature a 100.1 degrees Fahrenheit to 99.8 degrees Fahrenheit, pulse 71 to 91, respirations 18 to 22, blood pressure 133 to 149 over 46 to 60. GENERAL: The patient well developed, well nourished [place]i male who is currently intubated and sedated. HEENT: Eyes pupils are equal and responsive to light and accommodation. Extraocular movements are intact. NECK: Supple. No lymphadenopathy. CHEST: Coarse breath sounds bilaterally without wheeze or rales. CARDIOVASCULAR: Regular rate S1, S2. No murmurs, rubs, or gallops. ABDOMEN: Soft, nontender, and nondistended. Positive bowel sounds. No hepatosplenomegaly. EXTREMITIES: Negative for clubbing, cyanosis, or edema. RECTAL/GENITALIA: Were not performed. NEUROLOGIC: Unable to assess secondary to patient's mental condition. LABORATORY STUDIES: WBC 12.6, hemoglobin 13.9, hematocrit 41, platelets 139,000. Sodium 139, potassium 6.3, chloride 97, CO2 25, BUN 36, creatinine 7.6, and glucose 91. Troponin less than 0.3. ASSESSMENT: This is a 71-year-old Yemeni male. 1. Respiratory failure. 2. Fever. 3. Hyperkalemia. 4. End-stage renal disease. 5. Congestive heart failure. 6. Coronary artery disease. 7. Diabetes type 2. 8. Hypercholesterolemia. 9. Chronic obstructive pulmonary disease. 10. Hypertension. 11. Benign prostatic hypertrophy. TREATMENT: 1. Respiratory failure. A Pulmonary consultation obtained with Dr. Roslyn Hanson. The patient is currently intubated and sedated. We will follow recommendations of Pulmonary. 2. Fever, this may be secondary to sepsis versus respiratory failure as above. The patient has been started empirically on vancomycin and Zosyn. We will follow recommendations of Infectious Disease. 3. Hyperkalemia. The patient will require emergent dialysis. The patient has been evaluated by Dr. Harrison Delatorre. We will follow recommendations of Nephrology, Dr. Delatorre. The patient does have a history of end-stage renal disease. 4. Congestive heart failure/coronary artery disease. The patient has follow up with Dr. Tyler Shaffer. The patient has status post cardiopulmonary arrest. We will follow recommendation of Cardiology, Dr. Shaffer. 5. Diabetes type 2. The patient has been placed on a NovoLog sliding scale. Accu-Cheks will be performed q.6 hours. 6. Hypercholesteremia. 7. Chronic obstructive pulmonary disease. 8. Hypertension. The patient is currently hypotensive. 9. Benign prostatic hypertrophy. Kartik Carcamo M.D. DR: MARQUITA JOB#: [id number] CC:
--- NOTE | 2016-09-07 23:30 | Consultation ---
DATE OF CONSULTATION: 09/07/2016 NEUROLOGICAL CONSULTATION: REQUESTING PHYSICIAN: Harrison Delatorre M.D. HISTORY OF PRESENT ILLNESS: This is a 71-year-old male seen in neurological consultation to evaluate the onset of paroxysmal activity following cardiac arrest. The patient was brought to this hospital with evidence of generalized weakness and dyspnea , being unable to ambulate, difficulty standing due to pain in his buttocks after recent injuries, and developing shortness of breath. His initial temperature 99.0 degrees and blood pressure 158/64. Examination revealed weakness in both lower extremities. EKG normal sinus rhythm rate 77, initially hypoxic with a saturation of 80. The patient was treated with BiPAP, given nebulizers The patient is scheduled for emergent dialysis due to the patient's fluid overload and hyperkalemia. His lab work included WBC 12.8, hemoglobin 13.9, and hematocrit 41.1. Coagulation panel was normal. Chemistry panel with potassium 6.3, BUN 36, and creatinine 7.6. Normal troponin . Imaging studies, chest x-ray shows moderate interstitial edema. The patient was admitted to [facility] last night after being taken off of BiPAP, which was poorly tolerated. The patient who was sitting on a bedside commode become unresponsive. He was assisted to the sixth floor. Code Blue was requested. The patient was resuscitated given epinephrine, bicarbonate, and finally was intubated developing spontaneous circulation. X-ray revealed adequate endotracheal tube, but worsening of pulmonary edema. Following resuscitation, the patient remained unresponsive. This morning, he was noted to have intermittent generalized jerks resembling the ongoing seizure activities. Ativan IV 2 mg was given followed by a load of Dilantin 1 g, this stopped paroxysmal activity although the patient was transient hypertension. Stat CT of the brain without contrast obtained revealing no acute intracranial abnormalities, no midline shift, no hemorrhage. PAST MEDICAL HISTORY: The patient has extensive medical history but mainly end-stage renal disease, on hemodialysis, hypertension, diabetes, CHF, and previous strokes in 2006. MEDICATIONS: His treatment prior to admission included atorvastatin, amlodipine, allopurinol, calcium, vitamin D, Sensipar, citalopram, ferrous sulfate, fluoxetine, folate, furosemide, gabapentin, insulin, Ativan, metoprolol, Trental, omeprazole, sertraline, trazodone, and terazosin. Following admission, the patient placed on IV fluids and antibiotics. No sedatives given. ALLERGIES: Niacin . SOCIAL HISTORY: Lives with his family in apartment. FAMILY HISTORY: Noncontributory . REVIEW OF SYMPTOMS: Unable to obtain due the patient's status. PHYSICAL EXAMINATION: GENERAL: This is a well-developed and well well-nourished, now intubated male who is lying in bed with head down in Trendelenburg position. VITAL SIGNS: Blood pressure 92/36 and respiration 18. HEENT: Head normocephalic. There is no evidence of trauma. Eyes, ears, and throat are clear. NECK: Supple. No meningeal signs. MUSCULOSKELETAL: Diffuse rigidity. After suctioning and stimulation, there was spontaneous movement in his lower extremities and few episodes what seems generalized jerks. PERIPHERAL PULSES: A 1+ symmetric. MENTAL STATUS: No response to voice stimulation, no response to external rub, but responding only to deep suctioning. CRANIAL NERVES II: Pupils 1 mm both responding to light and accommodation. Extraocular movement rolling with minor movement on lateral gazes during doll's maneuver. CRANIAL NERVES V: Normal corneal responses. CRANIAL NERVE VII: No facial asymmetry. CRANIAL NERVE VIII: Not tested. CRANIAL NERVES IX THROUGH XII: Absent gag response. Tongue is in midline. MOTOR EXAMINATION: Flaccid both upper and lower extremities. Deep reflexes are depressed bilaterally. Plantar response is mute. No pathological responses. SENSORY EXAMINATION: No response to pin stimulation. IMPRESSION: 1. Anoxic encephalopathy with intermittent rhythmic jerking probably seizure activities. 2. Status post cardiac arrest. 3. End-stage renal disease, on hemodialysis. 4. Abnormal liver enzymes. 5. Hypercalcemia. 6. Hypertension. RECOMMENDATIONS: 1. EEG. 2. Continue with supportive care including hemodialysis and respiratory care. 3. Check Dilantin level, continue with maintenance infusions 400 mg daily at rate of 25 mg /minute. Continue with Ativan 1 mg q.1 hour p.r.n. for seizure activity. 4. Discussed the patient's status with medical staff. Thank you for allowing me to see this interesting patient in neurological consultation. Star Bautisat M.D. DR: Kirsten JOB#: [id number] CC:
[2016-09-08] VITALS (24 sets, daily range): BP systolic 70–170; BP diastolic 24–116
--- NOTE | 2016-09-08 00:15 | Consultation ---
DATE OF CONSULTATION: 09/07/2016 Dictation Abruptly Ended Svitlana Garsia M.D. DR: BONILLA JOB#: [id number] CC:
--- NOTE | 2016-09-08 02:15 | Consultation ---
DATE OF CONSULTATION: 09/07/2016 CARDIOLOGY CONSULT: IDENTIFICATION: This is a 71-year-old male. REASON FOR EVALUATION: Cardiac arrest. History Of Present Illness: The patient has diabetes, end-stage renal disease on dialysis, and hypertension. He came last night to the emergency department after he skipped dialysis. He was very weak and short of breath. His potassium was elevated at 6.4. The patient was started on BiPAP. He was given breathing treatment. The Nephrology was contacted and the patient was placed on telemetry, however, about 12:30 a.m., 30 minute after midnight on 09/07/2016 he apparently arrested. He had very low-grade asystole. He underwent a chest compression intubation and then was admitted to intensive care unit. His dialysis was done at 3 o'clock in the morning after his cardiac arrest. This morning, the patient is comatose, unresponsive, intubated, breathing on machine. PAST MEDICAL HISTORY: As above. MEDICATIONS: Home medications were reviewed and reconciled. At home, he is taking amlodipine, allopurinol, atorvastatin, , calcium carbonate, cholecalciferol, Lexapro, iron, fluoxetine, folic acid, furosemide, gabapentin, insulin, ipratropium, metoprolol, minoxidil , omega-3, fatty acid, pentoxifylline, omeprazole, and trazodone. ALLERGIES: Not reported. HABITS: No recent history of drinking, smoking, or drug abuse. I reviewed the notes of Dr. Shaffer, who sent over for me from his office. PHYSICAL EXAMINATION: GENERAL: Right now, the patient is comatose and unresponsive. VITAL SIGNS: Blood pressure 90/40, heart rate 80, temperature 100.1 degrees, and oxygen saturation is 100% on 80% FiO2. HEENT: He has sluggish corneal and pupil reaction. NECK: Supple. He has some twitching on the left side of his body. There is no masses on the neck. LUNGS: Scattered crackles bilaterally. HEART: Regular with accented S1. ABDOMEN: Soft. Positive bowel sounds. No rebound. No guarding. EXTREMITIES: Lower extremities, no edema. There is a distal pulses palpable. Left leg is twitching. LABORATORY AND DIAGNOSTIC DATA: His EKG done in the emergency department could not be located. At present time, I could not find it. I would not do EKG. His potassium this morning was 6.7, however, after dialysis is 4.8, sodium 148, and creatinine 5. AST and ALT elevated at 61 and 64. White count 15.9, hemoglobin 13, and platelets 151,000. Chest x-ray showed pulmonary edema. CAT scan did not show any stroke. IMPRESSION AND RECOMMENDATION: Asystole possibly due to hyperkalemia plus vasovagal episode. The patient suffered some consequences after cardiac arrest, difficult to ascertain how bad this consequences are at present time. Hopefully, he will recover. He already was seen by a neurologist. He was seen by Renal specialist as well. His troponin so far was negative. We are going to do echo and EKG showing it to maintain his blood pressure still better level because he usually used blood pressure above 120. His hypertensive, so we are going to start him on dopamine drip to maintain his blood pressure. From cardiac standpoint, there is no additional medications indicated at present time. His cardiac arrest and asystole was not really due to cardiac disease, but rather due to hyperkalemia. This is ICU level of care, spent approximately one hour, evaluating the patient, reviewing all appropriate information and coordinating the care. Svitlana Garsia M.D. DR: Simon JOB#: [id number] CC:
[2016-09-08] MEDS: LORazepam Inj 2mg/ml 1ml IV PRN ×5 (02:53→23:18)
[2016-09-08] MEDS: NovoLOG Insulin Flexpen SUBQ SCH ×3 (05:49→17:44)
[2016-09-08] MEDS: Phenytoin 100 MG in NS 55 ML IVPB SCH ×2 (05:52→14:23)
[2016-09-08] MEDS: Piperacillin/Tazobactam 2.25 GM in D5W 55 ML IVPB SCH ×3 (05:53→21:54)
[2016-09-08 05:57] LABS: BASOPHILS % (AUTO) 1.5 % (0.0-2.0); EOSINOPHILS % (AUTO) 0.4 % (0.0-3.0); LYMPHOCYTES % (AUTO) 10.5 % (20.0-45.0); MEAN CORPUSCULAR HEMOGLOBIN 30.6 PG (27.0-31.0); MEAN CORPUSCULAR HGB CONC 32.1 G/DL (32.0-36.0); MEAN CORPUSCULAR VOLUME 95 FL (80-99); MEAN PLATELET VOLUME 7.1 FL (6.5-10.1); MONOCYTES % (AUTO) 8.8 % (1.0-10.0); NEUTROPHILS % (AUTO) 78.8 % (45.0-75.0); PLATELET COUNT 168 K/UL (150-450); RED BLOOD COUNT 3.74 M/UL (4.70-6.10); WHITE BLOOD COUNT 11.7 K/UL (4.8-10.8)
[2016-09-08 06:20] LABS: ALBUMIN/GLOBULIN RATIO 1.1 (1.0-2.7); CREATININE 6.5 mg/dL (0.7-1.2); GLOMERULAR FILTRATION RATE 8.5 mL/min (>60); POTASSIUM 4.4 mEQ/L (3.4-4.9); TOTAL PROTEIN 6.2 g/dL (6.6-8.7)
--- NOTE | 2016-09-08 06:39 | Cardiology Progress Note ---
Assessment/Plan Assessment/Plan cardiopulm arrest anoxic encephalopathy esrd on hd noncompliant with dialysis htn chronic diastolic failure hx cad all trop neg ekg noted telel neg on the vent dialsysis as planned neuro fu bp seem ok echo will orderd prognosis guarded unless he showes some neuro recovery signs Subjective ROS Limited/Unobtainable: Yes Subjective on vernt post arrest adn resusuitation ot communicative Objective Last 24 Hour Vital Signs Date Time Temp Pulse Resp B/P Pulse Ox O2 Delivery O2 Flow Rate FiO2 09/08/16 05:11 77 18 60 09/08/16 05:00 73 18 168/97 100 Mechanical Ventilator 60 09/08/16 04:00 60 09/08/16 04:00 98.4 73 18 153/53 100 Mechanical Ventilator 60 09/08/16 04:00 73 09/08/16 03:18 71 18 60 09/08/16 03:00 72 18 122/49 100 Mechanical Ventilator 60 09/08/16 02:00 71 18 133/66 100 Mechanical Ventilator 60 09/08/16 01:45 69 18 60 09/08/16 01:00 70 18 135/49 100 Mechanical Ventilator 60 09/08/16 00:00 97.8 73 18 106/41 100 Mechanical Ventilator 60 09/08/16 00:00 60 09/08/16 00:00 70 09/07/16 23:29 72 17 60 09/07/16 23:00 71 18 115/50 100 Mechanical Ventilator 60 09/07/16 22:00 73 18 139/50 100 Mechanical Ventilator 60 09/07/16 21:35 67 18 60 09/07/16 21:00 68 18 113/44 100 Mechanical Ventilator 60 09/07/16 20:00 99.5 68 18 106/39 100 Mechanical Ventilator 60 09/07/16 20:00 68 09/07/16 20:00 60 09/07/16 19:50 71 17 60 09/07/16 19:00 74 18 112/44 100 Mechanical Ventilator 80 09/07/16 18:00 124/45 09/07/16 18:00 74 18 131/48 100 Mechanical Ventilator 80 09/07/16 17:30 71 18 60 09/07/16 17:00 74 18 124/45 100 Mechanical Ventilator 80 09/07/16 16:00 78 09/07/16 16:00 60 09/07/16 16:00 99.4 74 18 127/43 100 Mechanical Ventilator 80 09/07/16 15:18 74 18 60 09/07/16 15:00 74 18 93/29 100 Mechanical Ventilator 80 09/07/16 14:00 99.8 09/07/16 14:00 86 18 90/39 100 Mechanical Ventilator 80 09/07/16 13:13 71 18 60 09/07/16 13:00 99.8 68 18 83/53 100 Mechanical Ventilator 80 09/07/16 12:00 100.1 81 18 136/60 100 Mechanical Ventilator 80 09/07/16 12:00 78 09/07/16 12:00 60 09/07/16 11:30 82 18 60 09/07/16 11:00 86 18 133/46 100 Mechanical Ventilator 80 09/07/16 10:00 91 22 149/54 100 Mechanical Ventilator 80 09/07/16 09:00 88 18 60 09/07/16 09:00 84 22 140/96 100 Mechanical Ventilator 80 09/07/16 08:46 152/101 09/07/16 08:46 88 152/101 09/07/16 08:00 98.5 90 21 161/78 100 Mechanical Ventilator 80 09/07/16 08:00 82 09/07/16 07:15 92 18 70 09/07/16 07:12 Mechanical Ventilator 80 09/07/16 07:07 98.0 89 21 152/100 Mechanical Ventilator 80 09/07/16 07:06 85 22 147/103 100 Mechanical Ventilator 80 General Appearance: no apparent distress, on vent Neck: supple Cardiovascular: normal peripheral pulses, normal rate, regular rhythm, systolic murmur Respiratory/Chest: lungs clear - ant Abdomen: normal bowel sounds, non tender, soft Extremities: no swelling Intake and Output 09/07/16 09/08/16 19:00 07:00 Intake Total 883.708 ml 112 ml Output Total 4200 ml 0 ml Balance -3316.292 ml 112 ml Intake Oral 0 ml IV Total 883.708 ml 112 ml Output Urine Total 0 ml 0 ml Hemodialysis UF 4200 ml Laboratory Tests Test 09/07/16 09:40 09/07/16 11:50 09/08/16 05:10 Sodium Level 148 mEQ/L (135-145) H 147 mEQ/L (135-145) H Potassium Level 4.8 mEQ/L (3.4-4.9) 4.4 mEQ/L (3.4-4.9) Chloride Level 104 mEQ/L (98-107) 105 mEQ/L (98-107) Carbon Dioxide Level 28 mEQ/L (20-30) 27 mEQ/L (20-30) Anion Gap 16 (5-15) H 15 (5-15) Blood Urea Nitrogen 24 mg/dL (7-23) H 43 mg/dL (7-23) H Creatinine 5.0 mg/dL (0.7-1.2) H 6.5 mg/dL (0.7-1.2) H Estimat Glomerular Filtration Rate 11.5 mL/min (>60) 8.5 mL/min (>60) Glucose Level 152 mg/dL (74-106) H 188 mg/dL (74-106) H Calcium Level 10.2 mg/dL (8.6-10.2) 10.0 mg/dL (8.6-10.2) Total Bilirubin 0.9 mg/dL (0.0-1.2) 0.8 mg/dL (0.0-1.2) Aspartate Amino Transf (AST/SGOT) 61 U/L (5-40) H 31 U/L (5-40) Alanine Aminotransferase (ALT/SGPT) 64 U/L (3-41) H 41 U/L (3-41) Alkaline Phosphatase 54 U/L (40-129) 45 U/L (40-129) Troponin I < 0.30 ng/mL (<=0.30) Total Protein 7.0 g/dL (6.6-8.7) 6.2 g/dL (6.6-8.7) L Albumin 3.7 g/dL (3.5-5.2) 3.3 g/dL (3.5-5.2) L Globulin 3.3 g/dL 2.9 g/dL Albumin/Globulin Ratio 1.1 (1.0-2.7) 1.1 (1.0-2.7) Arterial Blood pH 7.479 (7.350-7.450) Arterial Blood Partial Pressure CO2 38.5 mmHg (35.0-45.0) Arterial Blood Partial Pressure O2 158.3 mmHg (75.0-100.0) H Arterial Blood HCO3 28.0 mmol/L (22.0-26.0) H Arterial Blood Oxygen Saturation 98.2 % (92.0-98.0) H Arterial Blood Base Excess 4.3 Chas Test Positive White Blood Count 11.7 K/UL (4.8-10.8) H Red Blood Count 3.74 M/UL (4.70-6.10) L Hemoglobin 11.4 G/DL (14.2-18.0) L Hematocrit 35.7 % (42.0-52.0) L Mean Corpuscular Volume 95 FL (80-99) Mean Corpuscular Hemoglobin 30.6 PG (27.0-31.0) Mean Corpuscular Hemoglobin Concent 32.1 G/DL (32.0-36.0) Red Cell Distribution Width 18.0 % (11.6-14.8) H Platelet Count 168 K/UL (150-450) Mean Platelet Volume 7.1 FL (6.5-10.1) Neutrophils (%) (Auto) 78.8 % (45.0-75.0) H Lymphocytes (%) (Auto) 10.5 % (20.0-45.0) L Monocytes (%) (Auto) 8.8 % (1.0-10.0) Eosinophils (%) (Auto) 0.4 % (0.0-3.0) Basophils (%) (Auto) 1.5 % (0.0-2.0) HUSSEIN CAGE 5, 2017 06:39
--- NOTE | 2016-09-08 08:53 | Diagnostic Imaging Report ---
Indications: hip pain Findings: Two views of the right hip were obtained. No acute fracture is demonstrated. Alignment of the hip is within normal limits. Soft tissues are unremarkable. The bones appear osteopenic. Impression: Negative examination of the hip.
[2016-09-08] MEDS: Dyna-Hex 2% Top Sol 8oz TOPIC SCH (09:13)
[2016-09-08] MEDS: Minoxidil 2.5mg tab ORAL SCH ×2 (09:13→17:40)
[2016-09-08] MEDS: Atorvastatin 80mg tab ORAL SCH (09:13)
--- NOTE | 2016-09-08 09:18 | Nephrology Progress Note ---
Assessment/Plan Problem List: (1) ESRD (end stage renal disease) (2) Anoxic encephalopathy syndrome (3) Respiratory failure with hypoxia (4) CHF (congestive heart failure) Plan HD in AM Vent support EEG Discussed with dr Merino follow labs Discussed with RACHEL otero Subjective Subjective all noted remains intubated Objective Objective Last 24 Hour Vital Signs Date Time Temp Pulse Resp B/P Pulse Ox O2 Delivery O2 Flow Rate FiO2 09/08/16 09:13 165/53 09/08/16 09:13 75 165/53 09/08/16 09:00 75 18 165/53 100 Mechanical Ventilator 60 09/08/16 08:00 60 09/08/16 08:00 98.4 74 18 154/81 100 Mechanical Ventilator 60 09/08/16 07:30 71 17 50 09/08/16 07:00 74 18 161/55 100 Mechanical Ventilator 60 09/08/16 06:00 72 18 143/51 100 Mechanical Ventilator 60 09/08/16 05:11 77 18 60 09/08/16 05:00 73 18 168/97 100 Mechanical Ventilator 60 09/08/16 04:00 60 09/08/16 04:00 98.4 73 18 153/53 100 Mechanical Ventilator 60 09/08/16 04:00 73 09/08/16 03:18 71 18 60 09/08/16 03:00 72 18 122/49 100 Mechanical Ventilator 60 09/08/16 02:00 71 18 133/66 100 Mechanical Ventilator 60 09/08/16 01:45 69 18 60 09/08/16 01:00 70 18 135/49 100 Mechanical Ventilator 60 09/08/16 00:00 97.8 73 18 106/41 100 Mechanical Ventilator 60 09/08/16 00:00 60 09/08/16 00:00 70 09/07/16 23:29 72 17 60 09/07/16 23:00 71 18 115/50 100 Mechanical Ventilator 60 09/07/16 22:00 73 18 139/50 100 Mechanical Ventilator 60 09/07/16 21:35 67 18 60 09/07/16 21:00 68 18 113/44 100 Mechanical Ventilator 60 09/07/16 20:00 99.5 68 18 106/39 100 Mechanical Ventilator 60 09/07/16 20:00 68 09/07/16 20:00 60 09/07/16 19:50 71 17 60 09/07/16 19:00 74 18 112/44 100 Mechanical Ventilator 80 09/07/16 18:00 124/45 09/07/16 18:00 74 18 131/48 100 Mechanical Ventilator 80 09/07/16 17:30 71 18 60 09/07/16 17:00 74 18 124/45 100 Mechanical Ventilator 80 09/07/16 16:00 78 09/07/16 16:00 60 09/07/16 16:00 99.4 74 18 127/43 100 Mechanical Ventilator 80 09/07/16 15:18 74 18 60 09/07/16 15:00 74 18 93/29 100 Mechanical Ventilator 80 09/07/16 14:00 99.8 09/07/16 14:00 86 18 90/39 100 Mechanical Ventilator 80 09/07/16 13:13 71 18 60 09/07/16 13:00 99.8 68 18 83/53 100 Mechanical Ventilator 80 09/07/16 12:00 100.1 81 18 136/60 100 Mechanical Ventilator 80 09/07/16 12:00 78 09/07/16 12:00 60 09/07/16 11:30 82 18 60 09/07/16 11:00 86 18 133/46 100 Mechanical Ventilator 80 09/07/16 10:00 91 22 149/54 100 Mechanical Ventilator 80 Intake and Output 09/07/16 09/08/16 19:00 07:00 Intake Total 883.708 ml 224 ml Output Total 4200 ml 0 ml Balance -3316.292 ml 224 ml Intake Oral 0 ml IV Total 883.708 ml 224 ml Output Urine Total 0 ml 0 ml Hemodialysis UF 4200 ml Laboratory Tests 09/07/16 09:40: Sodium Level 148H, Potassium Level 4.8, Chloride Level 104, Carbon Dioxide Level 28, Anion Gap 16H, Blood Urea Nitrogen 24H, Creatinine 5.0H, Estimat Glomerular Filtration Rate 11.5, Glucose Level 152H, Calcium Level 10.2, Total Bilirubin 0.9, Aspartate Amino Transf (AST/SGOT) 61H, Alanine Aminotransferase ( ALT/SGPT) 64H, Alkaline Phosphatase 54, Troponin I < 0.30, Total Protein 7.0, Albumin 3.7, Globulin 3.3, Albumin/Globulin Ratio 1.1 09/07/16 11:50: Arterial Blood pH 7.479H, Arterial Blood Partial Pressure CO2 38.5, Arterial Blood Partial Pressure O2 158.3H, Arterial Blood HCO3 28.0H, Arterial Blood Oxygen Saturation 98.2H, Arterial Blood Base Excess 4.3, Chas Test Positive 09/08/16 05:10: Sodium Level 147H, Potassium Level 4.4, Chloride Level 105, Carbon Dioxide Level 27, Anion Gap 15, Blood Urea Nitrogen 43H, Creatinine 6.5H, Estimat Glomerular Filtration Rate 8.5, Glucose Level 188H, Calcium Level 10.0, Total Bilirubin 0.8, Aspartate Amino Transf (AST/SGOT) 31, Alanine Aminotransferase ( ALT/SGPT) 41, Alkaline Phosphatase 45, Total Protein 6.2L, Albumin 3.3L, Globulin 2.9, Albumin/Globulin Ratio 1.1, White Blood Count 11.7H, Red Blood Count 3.74L, Hemoglobin 11.4L, Hematocrit 35.7L, Mean Corpuscular Volume 95, Mean Corpuscular Hemoglobin 30.6, Mean Corpuscular Hemoglobin Concent 32.1, Red Cell Distribution Width 18.0H, Platelet Count 168, Mean Platelet Volume 7.1, Neutrophils (%) (Auto) 78.8H, Lymphocytes (%) (Auto) 10.5L, Monocytes (%) (Auto ) 8.8, Eosinophils (%) (Auto) 0.4, Basophils (%) (Auto) 1.5 Height (Feet): 5 Height (Inches): 6.00 Weight (Pounds): 177 Cardiovascular: regular rhythm Respiratory/Chest: lungs clear Extremities: trace edema CANDICE BREAUX Sep 08, 2016 09:18
--- NOTE | 2016-09-08 10:16 | Critical Care Progress Note ---
Assessment/Plan Assessment/Plan 1. Status post cardiac arrest. 2. Renal failure with hyperkalemia. 3. Respiratory failure. 4. Anoxic encephalopathy. 5. Status epilepticus 6. Coronary artery disease. 7. History of cardiomyopathy. 8. Diabetes. 9. Hypertension. cannot wean disc w Dr Delatorre and Dr Bautista prognosis poor cont vent support Critical Care - Subjective ROS Limited/Unobtainable: Yes Condition: critical I&O: Intake and Output 09/07/16 09/08/16 19:00 07:00 Intake Total 883.708 ml 224 ml Output Total 4200 ml 0 ml Balance -3316.292 ml 224 ml Intake Oral 0 ml IV Total 883.708 ml 224 ml Output Urine Total 0 ml 0 ml Hemodialysis UF 4200 ml Critical Care - Objective ET-Tube: 8.0 ET Position: 24 Last 24 Hour Vital Signs Date Time Temp Pulse Resp B/P Pulse Ox O2 Delivery O2 Flow Rate FiO2 09/08/16 10:00 72 18 142/57 100 Mechanical Ventilator 60 09/08/16 09:31 74 18 50 09/08/16 09:13 165/53 09/08/16 09:13 75 165/53 09/08/16 09:00 75 18 165/53 100 Mechanical Ventilator 60 09/08/16 08:00 60 09/08/16 08:00 98.4 74 18 154/81 100 Mechanical Ventilator 60 09/08/16 08:00 75 09/08/16 07:30 71 17 50 09/08/16 07:00 74 18 161/55 100 Mechanical Ventilator 60 09/08/16 06:00 72 18 143/51 100 Mechanical Ventilator 60 09/08/16 05:11 77 18 60 09/08/16 05:00 73 18 168/97 100 Mechanical Ventilator 60 09/08/16 04:00 60 09/08/16 04:00 98.4 73 18 153/53 100 Mechanical Ventilator 60 09/08/16 04:00 73 09/08/16 03:18 71 18 60 09/08/16 03:00 72 18 122/49 100 Mechanical Ventilator 60 09/08/16 02:00 71 18 133/66 100 Mechanical Ventilator 60 09/08/16 01:45 69 18 60 09/08/16 01:00 70 18 135/49 100 Mechanical Ventilator 60 09/08/16 00:00 97.8 73 18 106/41 100 Mechanical Ventilator 60 09/08/16 00:00 60 09/08/16 00:00 70 09/07/16 23:29 72 17 60 09/07/16 23:00 71 18 115/50 100 Mechanical Ventilator 60 09/07/16 22:00 73 18 139/50 100 Mechanical Ventilator 60 09/07/16 21:35 67 18 60 09/07/16 21:00 68 18 113/44 100 Mechanical Ventilator 60 09/07/16 20:00 99.5 68 18 106/39 100 Mechanical Ventilator 60 09/07/16 20:00 68 09/07/16 20:00 60 09/07/16 19:50 71 17 60 09/07/16 19:00 74 18 112/44 100 Mechanical Ventilator 80 09/07/16 18:00 124/45 09/07/16 18:00 74 18 131/48 100 Mechanical Ventilator 80 09/07/16 17:30 71 18 60 09/07/16 17:00 74 18 124/45 100 Mechanical Ventilator 80 09/07/16 16:00 78 09/07/16 16:00 60 09/07/16 16:00 99.4 74 18 127/43 100 Mechanical Ventilator 80 09/07/16 15:18 74 18 60 09/07/16 15:00 74 18 93/29 100 Mechanical Ventilator 80 09/07/16 14:00 99.8 09/07/16 14:00 86 18 90/39 100 Mechanical Ventilator 80 09/07/16 13:13 71 18 60 09/07/16 13:00 99.8 68 18 83/53 100 Mechanical Ventilator 80 09/07/16 12:00 100.1 81 18 136/60 100 Mechanical Ventilator 80 09/07/16 12:00 78 09/07/16 12:00 60 09/07/16 11:30 82 18 60 09/07/16 11:00 86 18 133/46 100 Mechanical Ventilator 80 Status: obtunded Lungs: clear Heart: normal rate Objective: seizing Micro: Microbiology Date/Time Source Procedure Growth Status 09/07/16 22:00 Sputum Induced Gram Stain - Final Resulted 09/07/16 22:00 Sputum Induced Sputum Culture Pending Resulted 09/07/16 18:40 Urine,Clean Catch Urine Culture - Preliminary NO GROWTH Resulted Accucheck: CHLOE YO Sep 08, 2016 10:16
[2016-09-08] MEDS ORDERED: Valproate Sodium INJ 1,000 MG in D5W 55 ML IV ONE (11:00)
--- NOTE | 2016-09-08 11:47 | Neurology Progress Note ---
Interim History Interim History ROS Limited/Unobtainable: Yes Complaints: coma Events: intermittent abdomen contractions Objective Physical Exam Last Vital Signs Date Time Temp Pulse Resp B/P Pulse Ox O2 Delivery O2 Flow Rate FiO2 09/08/16 11:00 75 18 157/111 100 Mechanical Ventilator 60 09/08/16 08:00 98.4 09/06/16 22:35 4.0 Laboratory Tests Test 09/07/16 11:50 09/08/16 05:10 Arterial Blood pH 7.479 (7.350-7.450) Arterial Blood Partial Pressure CO2 38.5 mmHg (35.0-45.0) Arterial Blood Partial Pressure O2 158.3 mmHg (75.0-100.0) H Arterial Blood HCO3 28.0 mmol/L (22.0-26.0) H Arterial Blood Oxygen Saturation 98.2 % (92.0-98.0) H Arterial Blood Base Excess 4.3 Chas Test Positive White Blood Count 11.7 K/UL (4.8-10.8) H Red Blood Count 3.74 M/UL (4.70-6.10) L Hemoglobin 11.4 G/DL (14.2-18.0) L Hematocrit 35.7 % (42.0-52.0) L Mean Corpuscular Volume 95 FL (80-99) Mean Corpuscular Hemoglobin 30.6 PG (27.0-31.0) Mean Corpuscular Hemoglobin Concent 32.1 G/DL (32.0-36.0) Red Cell Distribution Width 18.0 % (11.6-14.8) H Platelet Count 168 K/UL (150-450) Mean Platelet Volume 7.1 FL (6.5-10.1) Neutrophils (%) (Auto) 78.8 % (45.0-75.0) H Lymphocytes (%) (Auto) 10.5 % (20.0-45.0) L Monocytes (%) (Auto) 8.8 % (1.0-10.0) Eosinophils (%) (Auto) 0.4 % (0.0-3.0) Basophils (%) (Auto) 1.5 % (0.0-2.0) Sodium Level 147 mEQ/L (135-145) H Potassium Level 4.4 mEQ/L (3.4-4.9) Chloride Level 105 mEQ/L (98-107) Carbon Dioxide Level 27 mEQ/L (20-30) Anion Gap 15 (5-15) Blood Urea Nitrogen 43 mg/dL (7-23) H Creatinine 6.5 mg/dL (0.7-1.2) H Estimat Glomerular Filtration Rate 8.5 mL/min (>60) Glucose Level 188 mg/dL (74-106) H Calcium Level 10.0 mg/dL (8.6-10.2) Total Bilirubin 0.8 mg/dL (0.0-1.2) Aspartate Amino Transf (AST/SGOT) 31 U/L (5-40) Alanine Aminotransferase (ALT/SGPT) 41 U/L (3-41) Alkaline Phosphatase 45 U/L (40-129) Total Protein 6.2 g/dL (6.6-8.7) L Albumin 3.3 g/dL (3.5-5.2) L Globulin 2.9 g/dL Albumin/Globulin Ratio 1.1 (1.0-2.7) General: other - intubated Head: atraumatic Neurologic Exam Mental Status: other - comatose Speech: other Language: other Cranial Nerve II: no papilledema Cranial Nerves III, IV, : other - p 2mm sluggish aom-minor on doll,s Cranial Nerve V: other - +corneal Cranial Nerve VII: no facial asymmetry Cranial Nerve VIII: other Cranial Nerve IX: other - poor gag on suction Cranial Nerve XI: other Cranial Nerve XII: tongue midline Motor System: other - flaccid with irregular abdomen/BLE jercs Coordination: other Deep Tendon Reflexes: 0 ankle (L), 0 ankle (R), 0 bicep (L), 0 bicep (R), 0 brachioradialis (L), 0 brachioradialis (R), 0 knee (L), 0 knee (R), 0 tricep (L) , 0 tricep (R) Reflexes: mute plantar (L), mute plantar (R) Impression/Recommendations Problems: (1) Anoxic encephalopathy syndrome (2) Anoxic seizure (3) ESRD (end stage renal disease) (4) CHF (congestive heart failure) (5) Diabetes mellitus (6) COPD (chronic obstructive pulmonary disease) Status: not improved, unchanged Recommendations #[id number] EEG Depakote 1000mg ivpb dilantin 200mg bid d/w son x10min MINERVA FORMAN Sep 08, 2016 11:47
[2016-09-08] MEDS ORDERED: Phenytoin 100 MG in NS 55 ML IVPB SCH ×2 (12:00→20:00)
--- NOTE | 2016-09-08 12:14 | Infectious Diseases Prog Note ---
Assessment/Plan Assessment/Plan A; Aspiration pneumonia COPD s/p cardiac arrest Anoxic encephalopathy ESRD on HD Respiratory failure P; continue Zosyn Subjective Constitutional: Reports: fever, other - T max 100.1 yesterday Allergies: Coded Allergies: NIACIN (Verified Allergy, Unknown, ITCHING, 01/30/12) Objective Vital Signs Last 24 Hour Vital Signs Date Time Temp Pulse Resp B/P Pulse Ox O2 Delivery O2 Flow Rate FiO2 09/08/16 11:00 75 18 157/111 100 Mechanical Ventilator 60 09/08/16 10:53 74 18 50 09/08/16 10:00 72 18 142/57 100 Mechanical Ventilator 60 09/08/16 09:31 74 18 50 09/08/16 09:13 165/53 09/08/16 09:13 75 165/53 09/08/16 09:00 75 18 165/53 100 Mechanical Ventilator 60 09/08/16 08:00 60 09/08/16 08:00 98.4 74 18 154/81 100 Mechanical Ventilator 60 09/08/16 08:00 75 09/08/16 07:30 71 17 50 09/08/16 07:00 74 18 161/55 100 Mechanical Ventilator 60 09/08/16 06:00 72 18 143/51 100 Mechanical Ventilator 60 09/08/16 05:11 77 18 60 09/08/16 05:00 73 18 168/97 100 Mechanical Ventilator 60 09/08/16 04:00 60 09/08/16 04:00 98.4 73 18 153/53 100 Mechanical Ventilator 60 09/08/16 04:00 73 09/08/16 03:18 71 18 60 09/08/16 03:00 72 18 122/49 100 Mechanical Ventilator 60 09/08/16 02:00 71 18 133/66 100 Mechanical Ventilator 60 09/08/16 01:45 69 18 60 09/08/16 01:00 70 18 135/49 100 Mechanical Ventilator 60 09/08/16 00:00 97.8 73 18 106/41 100 Mechanical Ventilator 60 09/08/16 00:00 60 09/08/16 00:00 70 09/07/16 23:29 72 17 60 09/07/16 23:00 71 18 115/50 100 Mechanical Ventilator 60 09/07/16 22:00 73 18 139/50 100 Mechanical Ventilator 60 09/07/16 21:35 67 18 60 09/07/16 21:00 68 18 113/44 100 Mechanical Ventilator 60 09/07/16 20:00 99.5 68 18 106/39 100 Mechanical Ventilator 60 09/07/16 20:00 68 09/07/16 20:00 60 09/07/16 19:50 71 17 60 09/07/16 19:00 74 18 112/44 100 Mechanical Ventilator 80 09/07/16 18:00 124/45 09/07/16 18:00 74 18 131/48 100 Mechanical Ventilator 80 09/07/16 17:30 71 18 60 09/07/16 17:00 74 18 124/45 100 Mechanical Ventilator 80 09/07/16 16:00 78 09/07/16 16:00 60 09/07/16 16:00 99.4 74 18 127/43 100 Mechanical Ventilator 80 09/07/16 15:18 74 18 60 09/07/16 15:00 74 18 93/29 100 Mechanical Ventilator 80 09/07/16 14:00 99.8 09/07/16 14:00 86 18 90/39 100 Mechanical Ventilator 80 09/07/16 13:13 71 18 60 09/07/16 13:00 99.8 68 18 83/53 100 Mechanical Ventilator 80 Height (Feet): 5 Height (Inches): 6.00 Weight (Pounds): 177 HEENT: other - orally intubated Respiratory/Chest: lungs clear, other - on ventilator Cardiovascular: normal rate Abdomen: soft, non tender, other - orogastric tube Extremities: no edema Neurologic/Psychiatric: other - Twiching of abdominal wall muscle, coma Microbiology Date/Time Source Procedure Growth Status 09/07/16 22:00 Sputum Induced Gram Stain - Final Resulted 09/07/16 22:00 Sputum Induced Sputum Culture Pending Resulted 09/07/16 18:40 Urine,Clean Catch Urine Culture - Preliminary NO GROWTH Resulted Laboratory Tests Test 09/08/16 05:10 White Blood Count 11.7 K/UL (4.8-10.8) H Red Blood Count 3.74 M/UL (4.70-6.10) L Hemoglobin 11.4 G/DL (14.2-18.0) L Hematocrit 35.7 % (42.0-52.0) L Mean Corpuscular Volume 95 FL (80-99) Mean Corpuscular Hemoglobin 30.6 PG (27.0-31.0) Mean Corpuscular Hemoglobin Concent 32.1 G/DL (32.0-36.0) Red Cell Distribution Width 18.0 % (11.6-14.8) H Platelet Count 168 K/UL (150-450) Mean Platelet Volume 7.1 FL (6.5-10.1) Neutrophils (%) (Auto) 78.8 % (45.0-75.0) H Lymphocytes (%) (Auto) 10.5 % (20.0-45.0) L Monocytes (%) (Auto) 8.8 % (1.0-10.0) Eosinophils (%) (Auto) 0.4 % (0.0-3.0) Basophils (%) (Auto) 1.5 % (0.0-2.0) Sodium Level 147 mEQ/L (135-145) H Potassium Level 4.4 mEQ/L (3.4-4.9) Chloride Level 105 mEQ/L (98-107) Carbon Dioxide Level 27 mEQ/L (20-30) Anion Gap 15 (5-15) Blood Urea Nitrogen 43 mg/dL (7-23) H Creatinine 6.5 mg/dL (0.7-1.2) H Estimat Glomerular Filtration Rate 8.5 mL/min (>60) Glucose Level 188 mg/dL (74-106) H Calcium Level 10.0 mg/dL (8.6-10.2) Total Bilirubin 0.8 mg/dL (0.0-1.2) Aspartate Amino Transf (AST/SGOT) 31 U/L (5-40) Alanine Aminotransferase (ALT/SGPT) 41 U/L (3-41) Alkaline Phosphatase 45 U/L (40-129) Total Protein 6.2 g/dL (6.6-8.7) L Albumin 3.3 g/dL (3.5-5.2) L Globulin 2.9 g/dL Albumin/Globulin Ratio 1.1 (1.0-2.7) Current Medications Medications (Trade) Dose Ordered Sig/Mark Route PRN Reason Start Time Stop Time Status Last Admin Dose Admin Acetaminophen (Tylenol) 650 mg Q4H PRN ORAL Mild Pain (Pain Scale 1-3) 09/06/16 23:00 10/06/16 22:59 6/17 12:41 Amlodipine Besylate (Norvasc) 10 mg DAILY ORAL 09/07/16 09:00 10/07/16 08:59 09/08/16 09:13 Atorvastatin Calcium (Lipitor) 80 mg DAILY ORAL 09/07/16 09:00 10/07/16 08:59 09/08/16 09:13 Chlorhexidine Gluconate 1 applic 1 applic DAILY TOPIC 09/08/16 09:00 10/08/16 08:59 09/08/16 09:13 Dextrose STAT PRN IV Hypoglycemia 09/06/16 23:00 10/06/16 22:59 Heparin Sodium (Porcine) (Heparin 5000 units/ml) 5,000 units POSTHD INJ 09/09/16 06:00 09/09/16 18:00 Heparin Sodium (Porcine) (Heparin Sod 1000 units/ml 10ml) 2,000 unit ONCE IV 09/09/16 06:00 09/09/16 18:00 Heparin Sodium (Porcine) 5000 units 5,000 units EVERY 12 HOURS SUBQ 09/08/16 21:00 10/08/16 20:59 Insulin Aspart (NovoLOG) EVERY 6 HOURS SUBQ 09/07/16 18:00 10/07/16 17:59 09/08/16 11:54 Lorazepam (Ativan 2mg/ml 1ml) 2 mg Q2H PRN IV For Anxiety 09/07/16 11:00 09/14/16 10:59 09/08/16 09:14 Minoxidil (Loniten) 5 mg BID ORAL 09/07/16 09:00 10/07/16 08:59 09/08/16 09:13 Phenytoin/Sodium Chloride (Dilantin/Sodium Chloride) 57 ml @ 114 mls/hr Q8HR IVPB 09/07/16 22:00 10/07/16 21:59 09/08/16 05:52 Piperacillin Sod/ Tazobactam Sod/ Dextrose (Zosyn/D5W) 55 ml @ 110 mls/hr Q8HR IVPB 09/07/16 12:00 09/12/16 11:59 09/08/16 05:53 Polyethylene Glycol (Miralax) 17 gm DAILYPRN PRN ORAL Constipation 09/06/16 23:00 10/06/16 22:59 Ranitidine HCl (Zantac) 150 mg BEDTIME ORAL 09/08/16 21:00 10/08/16 20:59 Sodium Chloride (Sodium Chloride 1000ml bag) 1,000 ml @ 500 mls/hr Q2H PRN IVLG sbp<90 during hd 09/09/16 06:00 09/09/16 06:01 Valproate Sodium/ Dextrose (Depacon Inj/D5W) 65 ml @ 32.5 mls/hr ONCE ONCE IV 09/08/16 11:00 09/08/16 12:59 09/08/16 11:02 Vancomycin HCl 1 ea 1 ea DAILY PRN MISC per rx protocol 09/07/16 12:00 10/07/16 11:59 ROZINA BREAUX Sep 08, 2016 12:14
--- NOTE | 2016-09-08 12:28 | Diagnostic Imaging Report ---
Indication: Seizure Technique: Contiguous 5 mm thick transaxial imaging of the head obtained in a Siemens Sensation [address] scanner. Soft tissue and bone windows generated. Total Dose length Product (DLP): [address] Dose Index Volume (CTDIvol): 70.38 mGy Comparison: none Findings: There is lateral prominence of the ventricles, basal cisterns, and cerebral sulci consistent with atrophy. Mild, nonspecific, white matter hypoattenuation is noted throughout the brain consistent with chronic small vessel disease. There is no midline shift, edema, acute hemorrhage, mass effect, or abnormal extra-axial fluid collections. Bones and extra osseous soft tissues are unremarkable. Impression: No acute intracranial bleed, mass effect or edema. Moderate atrophy of the brain. Nonspecific white matter hypoattenuation probably due to chronic small vessel disease. [facility] has communicated the preliminary results to the Emergency Department. Their findings are largely concordant with this report. The CT scanner at [facility] is accredited by the [employer] and the scans are performed using dose optimization techniques as appropriate to a performed exam including Automatic Exposure control.
--- NOTE | 2016-09-08 12:35 | Diagnostic Imaging Report ---
Indication: Cough Comparison: 09/07/16 A single view chest radiograph was obtained. Findings: There is pulmonary edema suspected. Lung volumes are low. The heart is enlarged. Tubes and lines are stable. Impression: Pulmonary edema. Difficult to assess for change because of the marked difference in lung volumes. There is probably little to no change.
--- NOTE | 2016-09-08 13:12 | Internal Med Progress Note ---
Subjective Date of Service: Sep 08, 2016 Physician Name Kartik Clancy Attending Physician Harrison Delatorre Current Medications Medications (Trade) Dose Ordered Sig/Mark Route PRN Reason Start Time Stop Time Status Last Admin Dose Admin Acetaminophen (Tylenol) 650 mg Q4H PRN ORAL Mild Pain (Pain Scale 1-3) 09/06/16 23:00 10/06/16 22:59 09/07/16 12:41 Amlodipine Besylate (Norvasc) 10 mg DAILY ORAL 09/07/16 09:00 10/07/16 08:59 09/08/16 09:13 Atorvastatin Calcium (Lipitor) 80 mg DAILY ORAL 09/07/16 09:00 10/07/16 08:59 09/08/16 09:13 Chlorhexidine Gluconate 1 applic 1 applic DAILY TOPIC 09/08/16 09:00 10/08/16 08:59 09/08/16 09:13 Dextrose STAT PRN IV Hypoglycemia 09/06/16 23:00 10/06/16 22:59 Heparin Sodium (Porcine) (Heparin 5000 units/ml) 5,000 units EVERY 12 HOURS SUBQ 09/08/16 21:00 10/08/16 20:59 Heparin Sodium (Porcine) (Heparin 5000 units/ml) 5,000 units POSTHD INJ 09/09/16 06:00 09/09/16 18:00 Heparin Sodium (Porcine) (Heparin Sod 1000 units/ml 10ml) 2,000 unit ONCE IV 09/09/16 06:00 09/09/16 18:00 Insulin Aspart (NovoLOG) EVERY 6 HOURS SUBQ 09/07/16 18:00 10/07/16 17:59 09/08/16 11:54 Lorazepam (Ativan 2mg/ml 1ml) 2 mg Q2H PRN IV For Anxiety 09/07/16 11:00 09/14/16 10:59 09/08/16 09:14 Minoxidil (Loniten) 5 mg BID ORAL 09/07/16 09:00 10/07/16 08:59 09/08/16 09:13 Phenytoin/Sodium Chloride (Dilantin/Sodium Chloride) 57 ml @ 114 mls/hr Q8HR IVPB 09/07/16 22:00 10/07/16 21:59 09/08/16 05:52 Piperacillin Sod/ Tazobactam Sod/ Dextrose (Zosyn/D5W) 55 ml @ 110 mls/hr Q8HR IVPB 09/07/16 12:00 09/12/16 11:59 09/08/16 05:53 Polyethylene Glycol (Miralax) 17 gm DAILYPRN PRN ORAL Constipation 09/06/16 23:00 10/06/16 22:59 Ranitidine HCl (Zantac) 150 mg BEDTIME ORAL 09/08/16 21:00 10/08/16 20:59 Sodium Chloride (Sodium Chloride 1000ml bag) 1,000 ml @ 500 mls/hr Q2H PRN IVLG sbp<90 during hd 09/09/16 06:00 09/09/16 06:01 Vancomycin HCl 1 ea 1 ea DAILY PRN MISC per rx protocol 09/07/16 12:00 10/07/16 11:59 Allergies: Coded Allergies: NIACIN (Verified Allergy, Unknown, ITCHING, 01/30/12) ROS Limited/Unobtainable: Yes Subjective 71 YO M admitted with volume overload and respiratory failure. S/P cardiopulmonary arrest. ICU. Intubated and sedated. Cover for Int Med-Dr Vail. Objective Last Vital Signs Date Time Temp Pulse Resp B/P Pulse Ox O2 Delivery O2 Flow Rate FiO2 09/08/16 12:53 73 18 50 09/08/16 12:00 98.7 150/56 100 Mechanical Ventilator 09/06/16 22:35 4.0 General Appearance: WD/WN, lethargic EENT: PERRL/EOMI, normal ENT inspection, TMs normal Neck: non-tender, normal alignment, supple Cardiovascular: normal peripheral pulses, normal rate, regular rhythm, no gallop/murmur, no JVD Respiratory/Chest: chest wall non-tender, crackles/rales, rhonchi - bilaterally , expiratory wheezing Abdomen: normal bowel sounds, non tender, soft, no organomegaly Skin: normal pigmentation, warm/dry Laboratory Tests Test 09/08/16 05:10 White Blood Count 11.7 K/UL (4.8-10.8) H Red Blood Count 3.74 M/UL (4.70-6.10) L Hemoglobin 11.4 G/DL (14.2-18.0) L Hematocrit 35.7 % (42.0-52.0) L Mean Corpuscular Volume 95 FL (80-99) Mean Corpuscular Hemoglobin 30.6 PG (27.0-31.0) Mean Corpuscular Hemoglobin Concent 32.1 G/DL (32.0-36.0) Red Cell Distribution Width 18.0 % (11.6-14.8) H Platelet Count 168 K/UL (150-450) Mean Platelet Volume 7.1 FL (6.5-10.1) Neutrophils (%) (Auto) 78.8 % (45.0-75.0) H Lymphocytes (%) (Auto) 10.5 % (20.0-45.0) L Monocytes (%) (Auto) 8.8 % (1.0-10.0) Eosinophils (%) (Auto) 0.4 % (0.0-3.0) Basophils (%) (Auto) 1.5 % (0.0-2.0) Sodium Level 147 mEQ/L (135-145) H Potassium Level 4.4 mEQ/L (3.4-4.9) Chloride Level 105 mEQ/L (98-107) Carbon Dioxide Level 27 mEQ/L (20-30) Anion Gap 15 (5-15) Blood Urea Nitrogen 43 mg/dL (7-23) H Creatinine 6.5 mg/dL (0.7-1.2) H Estimat Glomerular Filtration Rate 8.5 mL/min (>60) Glucose Level 188 mg/dL (74-106) H Calcium Level 10.0 mg/dL (8.6-10.2) Total Bilirubin 0.8 mg/dL (0.0-1.2) Aspartate Amino Transf (AST/SGOT) 31 U/L (5-40) Alanine Aminotransferase (ALT/SGPT) 41 U/L (3-41) Alkaline Phosphatase 45 U/L (40-129) Total Protein 6.2 g/dL (6.6-8.7) L Albumin 3.3 g/dL (3.5-5.2) L Globulin 2.9 g/dL Albumin/Globulin Ratio 1.1 (1.0-2.7) Microbiology Date/Time Source Procedure Growth Status 09/07/16 22:00 Sputum Induced Gram Stain - Final Resulted 09/07/16 22:00 Sputum Induced Sputum Culture Pending Resulted 09/07/16 18:40 Urine,Clean Catch Urine Culture - Preliminary NO GROWTH Resulted Intake and Output 09/07/16 09/08/16 19:00 07:00 Intake Total 883.708 ml 224 ml Output Total 4200 ml 0 ml Balance -3316.292 ml 224 ml Intake Oral 0 ml IV Total 883.708 ml 224 ml Output Urine Total 0 ml 0 ml Hemodialysis UF 4200 ml Assessment/Plan Problem List: (1) HTN (hypertension) Assessment & Plan: Cont amlodipine. (2) Hyperkalemia (3) Respiratory failure with hypoxia Assessment & Plan: Intubated and sedated. Change rayon tester to Dr Montero per Dr Alvarez request. Cont vanco and zosyn per ID (4) ESRD (end stage renal disease) Assessment & Plan: See nephrology note. Hemodialysis per nephrology (5) CHF (congestive heart failure) (6) Diabetes mellitus Assessment & Plan: Cont novolog sliding scale. (7) COPD (chronic obstructive pulmonary disease) Status: not improved KARTIK CLANCY Sep 08, 2016 13:12
[2016-09-08] MEDS: Heparin 5000 units/ml inj SUBQ SCH (20:37)
[2016-09-08] MEDS ORDERED: LORazepam Inj 2mg/ml 1ml IV PRN (22:30)
[2016-09-08] MEDS ORDERED: NS 250 ML IV ONE (23:15)
[2016-09-09] VITALS (24 sets, daily range): BP systolic 102–178; BP diastolic 45–97
[2016-09-09] MEDS: NovoLOG Insulin Flexpen SUBQ SCH ×4 (00:03→18:00)
[2016-09-09] MEDS ORDERED: Phenytoin 100 MG in NS 55 ML IVPB SCH ×2 (02:00→09:00)
[2016-09-09] MEDS: LORazepam Inj 2mg/ml 1ml IV PRN ×3 (03:23→11:18)
[2016-09-09 04:28] LABS: BASOPHILS % (AUTO) 1.7 % (0.0-2.0); EOSINOPHILS % (AUTO) 1.9 % (0.0-3.0); MEAN CORPUSCULAR HEMOGLOBIN 30.1 PG (27.0-31.0); MEAN CORPUSCULAR HGB CONC 31.3 G/DL (32.0-36.0); MEAN CORPUSCULAR VOLUME 96 FL (80-99); MEAN PLATELET VOLUME 6.1 FL (6.5-10.1); MONOCYTES % (AUTO) 7.2 % (1.0-10.0); NEUTROPHILS % (AUTO) 76.2 % (45.0-75.0); PLATELET COUNT 172 K/UL (150-450); RED CELL DISTRIBUTION WIDTH 17.8 % (11.6-14.8); WHITE BLOOD COUNT 9.9 K/UL (4.8-10.8)
[2016-09-09 05:00] LABS: CALCIUM 9.5 mg/dL (8.6-10.2); CREATININE 7.1 mg/dL (0.7-1.2); GLOMERULAR FILTRATION RATE 7.7 mL/min (>60); POTASSIUM 4.2 mEQ/L (3.4-4.9)
[2016-09-09] MEDS: Piperacillin/Tazobactam 2.25 GM in D5W 55 ML IVPB SCH ×2 (05:59→21:45)
[2016-09-09] MEDS ORDERED: Heparin 5000 units/ml inj INJ SCH (06:00)
[2016-09-09] MEDS ORDERED: Heparin Sod 1000 units/ml 10ml IV SCH (06:00)
[2016-09-09] MEDS: Dyna-Hex 2% Top Sol 8oz TOPIC SCH (06:03)
--- NOTE | 2016-09-09 07:28 | Cardiology Report ---
APPROVED REPORT EKG Measurement Heart [id number] ND [id number] Normal sinus rhythm LVH Prolonged QT Abnormal ECG
[2016-09-09] MEDS: Heparin 5000 units/ml inj SUBQ SCH ×2 (08:24→21:00)
[2016-09-09] MEDS: Atorvastatin 80mg tab ORAL SCH (08:27)
[2016-09-09] MEDS: Minoxidil 2.5mg tab ORAL SCH ×2 (08:27→18:57)
--- NOTE | 2016-09-09 08:41 | Cardiology Report ---
APPROVED REPORT EXAM: Two-dimensional and M-mode echocardiogram with Doppler and color Doppler. INDICATION CAD M-Mode DIMENSIONS IVSd1.8 (0.7-1.1cm)Left Atrium (MM)3.1 (1.6-4.0cm) LVDd4.7 (3.5-5.6cm)Aortic Root3.4 (2.0-3.7cm) PWd1.7 (0.7-1.1cm)Aortic Cusp Exc.1.6 (1.5-2.0cm) LVDs3.1 (2.5-4.0cm) PWs2.0 cm Normal left ventricular chamber size, systolic function and wall motion. Left ventricular ejection fraction estimated to be 55-60 %. Moderate left ventricular hypertrophy by2-D. Anterior Echo-free space, may be due to pericardial fat or effusion. Mild left atrial enlargement. Right cardiac chamber sizes are within normal limits. Focal aortic valve sclerosis with adequate cusp excursion. Thickened mitral valve leaflets with normal excursion. Mitral annulus and aortic root calcification. Pulmonic valve not well visualized. Normal tricuspid valve structure. IVC measured 2.5 cm and slightly collapsing with respiration suggestive of elevated RAP. A color flow and spectral Doppler study was performed and revealed: Mild mitral regurgitation. Mitral inflow velocities indicates possible pseudo normalization pattern implying moderate left ventricular diastolic dysfunction. (Grade 2) Trace tricuspid regurgitation. Tricuspid systolic velocities suggests peak right ventricular systolic pressure of 30 mmHg.
--- NOTE | 2016-09-09 09:59 | Cardiology Progress Note ---
Assessment/Plan Assessment/Plan cardiopulm arrest anoxic encephalopathy esrd on hd noncompliant with dialysis htn chronic diastolic failure hx cad all trop neg ekg noted telel neg reviewed 09/09/2016 on the vent dialysis as planned today neuro fu bp seem elevated by may be better with dialysis later to day echo reviwed shwoe normal lv fucntion with mod diastolic dysfucntion prognosis guarded unless he showes some neuro recovery signs d/w rn Subjective ROS Limited/Unobtainable: Yes Subjective on vernt post arrest adn resusuitation ot communicative Objective Last 24 Hour Vital Signs Date Time Temp Pulse Resp B/P Pulse Ox O2 Delivery O2 Flow Rate FiO2 09/09/16 09:25 77 18 50 09/09/16 09:00 78 19 172/53 100 Mechanical Ventilator 50 09/09/16 08:28 83 177/64 09/09/16 08:27 177/64 09/09/16 08:00 78 09/09/16 08:00 50 09/09/16 08:00 100.2 83 18 177/64 100 Mechanical Ventilator 50 09/09/16 07:25 80 18 50 09/09/16 07:00 80 18 164/51 100 Mechanical Ventilator 50 09/09/16 06:00 90 18 143/79 100 Mechanical Ventilator 50 09/09/16 05:14 76 18 50 09/09/16 05:00 75 18 168/68 100 Mechanical Ventilator 50 09/09/16 04:00 98.9 72 18 178/58 100 Mechanical Ventilator 50 09/09/16 04:00 68 09/09/16 04:00 50 09/09/16 03:30 70 18 50 09/09/16 03:00 70 18 164/59 100 Mechanical Ventilator 50 09/09/16 02:00 70 18 166/58 100 Mechanical Ventilator 50 09/09/16 01:22 99.8 09/09/16 01:13 75 18 50 09/09/16 01:00 73 18 152/77 100 Mechanical Ventilator 60 09/09/16 00:00 60 09/09/16 00:00 79 09/09/16 00:00 100.4 77 18 177/57 100 Mechanical Ventilator 60 09/08/16 23:08 78 18 50 09/08/16 23:00 79 18 170/35 100 Mechanical Ventilator 60 09/08/16 22:00 76 18 149/57 100 Mechanical Ventilator 60 09/08/16 21:30 79 18 50 09/08/16 21:00 75 18 70/24 100 Mechanical Ventilator 60 09/08/16 20:00 98.3 76 18 159/52 100 Mechanical Ventilator 60 09/08/16 20:00 60 09/08/16 20:00 75 09/08/16 19:30 76 18 50 09/08/16 19:00 74 18 144/70 100 Mechanical Ventilator 60 09/08/16 18:00 73 18 161/54 100 Mechanical Ventilator 60 09/08/16 17:40 161/54 09/08/16 17:30 77 18 50 09/08/16 17:00 86 18 161/54 100 Mechanical Ventilator 60 09/08/16 16:00 75 09/08/16 16:00 60 09/08/16 16:00 98.8 76 18 146/53 100 Mechanical Ventilator 60 09/08/16 15:17 72 18 50 09/08/16 15:00 74 18 137/61 100 Mechanical Ventilator 60 09/08/16 14:00 76 18 153/116 100 Mechanical Ventilator 60 09/08/16 13:00 73 18 134/73 100 Mechanical Ventilator 60 09/08/16 12:53 73 18 50 09/08/16 12:00 98.7 70 18 150/56 100 Mechanical Ventilator 60 09/08/16 12:00 60 09/08/16 12:00 72 09/08/16 11:00 75 18 157/111 100 Mechanical Ventilator 60 09/08/16 10:53 74 18 50 09/08/16 10:00 72 18 142/57 100 Mechanical Ventilator 60 General Appearance: no apparent distress, on vent, patient on isolation Neck: supple Cardiovascular: regular rhythm Respiratory/Chest: lungs clear, normal breath sounds Abdomen: normal bowel sounds, non tender, soft Extremities: no swelling Intake and Output 09/08/16 09/09/16 19:00 07:00 Intake Total 212.5 ml 160 ml Output Total 0 ml Balance 212.5 ml 160 ml Free Water 50 ml IV Total 32.5 ml 100 ml Other 130 ml 60 ml Output Urine Total 0 ml # Voids 2 4 Laboratory Tests Test 09/09/16 03:50 White Blood Count 9.9 K/UL (4.8-10.8) Red Blood Count 3.80 M/UL (4.70-6.10) L Hemoglobin 11.5 G/DL (14.2-18.0) L Hematocrit 36.6 % (42.0-52.0) L Mean Corpuscular Volume 96 FL (80-99) Mean Corpuscular Hemoglobin 30.1 PG (27.0-31.0) Mean Corpuscular Hemoglobin Concent 31.3 G/DL (32.0-36.0) L Red Cell Distribution Width 17.8 % (11.6-14.8) H Platelet Count 172 K/UL (150-450) Mean Platelet Volume 6.1 FL (6.5-10.1) L Neutrophils (%) (Auto) 76.2 % (45.0-75.0) H Lymphocytes (%) (Auto) 13.0 % (20.0-45.0) L Monocytes (%) (Auto) 7.2 % (1.0-10.0) Eosinophils (%) (Auto) 1.9 % (0.0-3.0) Basophils (%) (Auto) 1.7 % (0.0-2.0) Sodium Level 149 mEQ/L (135-145) H Potassium Level 4.2 mEQ/L (3.4-4.9) Chloride Level 106 mEQ/L (98-107) Carbon Dioxide Level 22 mEQ/L (20-30) Anion Gap 21 (5-15) H Blood Urea Nitrogen 54 mg/dL (7-23) H Creatinine 7.1 mg/dL (0.7-1.2) H Estimat Glomerular Filtration Rate 7.7 mL/min (>60) Glucose Level 126 mg/dL (74-106) H Calcium Level 9.5 mg/dL (8.6-10.2) Random Vancomycin Level 11.5 ug/mL Phenytoin (Dilantin) Level 6.5 ug/mL (10-20) L Valproic Acid (Depakene) Level 23 ug/mL (50-100) L Microbiology Date/Time Source Procedure Growth Status 09/07/16 22:00 Sputum Induced Gram Stain - Final Resulted 09/07/16 22:00 Sputum Induced Sputum Culture - Preliminary NORMAL UPPER RESPIRATORY KAYLI AT 24 ... Resulted 09/06/16 22:25 Nasal Nares MRSA Culture - Final NO METHICILLIN RESISTANT STAPH AUREUS... Complete 09/07/16 18:40 Urine,Clean Catch Urine Culture - Preliminary NO GROWTH AFTER 24 HOURS Resulted 09/06/16 22:25 Rectum VRE Culture - Final NO VANCOMYCIN RESISTANT ENTEROCOCCUS ... Complete HUSSEIN CAGE Sep 09, 2016 09:59
--- NOTE | 2016-09-09 11:14 | Critical Care Progress Note ---
Assessment/Plan Assessment/Plan 1. Status post cardiac arrest. 2. Renal failure with hyperkalemia. 3. Respiratory failure. 4. Anoxic encephalopathy. 5. Status epilepticus 6. Coronary artery disease. 7. History of cardiomyopathy. 8. Diabetes. 9. Hypertension. cannot wean; apneic when I turned off vent disc w RN prognosis poor cont vent support Critical Care - Subjective ROS Limited/Unobtainable: Yes Condition: critical EKG Rhythm: Sinus Rhythm I&O: Intake and Output 09/08/16 09/09/16 19:00 07:00 Intake Total 212.5 ml 160 ml Output Total 0 ml Balance 212.5 ml 160 ml Free Water 50 ml IV Total 32.5 ml 100 ml Other 130 ml 60 ml Output Urine Total 0 ml # Voids 2 4 Critical Care - Objective ET-Tube: 8.0 ET Position: 24 Last 24 Hour Vital Signs Date Time Temp Pulse Resp B/P Pulse Ox O2 Delivery O2 Flow Rate FiO2 09/09/16 11:00 81 19 152/79 100 Mechanical Ventilator 50 09/09/16 10:00 78 19 159/55 100 Mechanical Ventilator 50 09/09/16 09:25 77 18 50 09/09/16 09:00 78 19 172/53 100 Mechanical Ventilator 50 09/09/16 08:28 83 177/64 09/09/16 08:27 177/64 09/09/16 08:00 78 09/09/16 08:00 50 09/09/16 08:00 100.2 83 18 177/64 100 Mechanical Ventilator 50 09/09/16 07:25 80 18 50 09/09/16 07:00 80 18 164/51 100 Mechanical Ventilator 50 09/09/16 06:00 90 18 143/79 100 Mechanical Ventilator 50 09/09/16 05:14 76 18 50 09/09/16 05:00 75 18 168/68 100 Mechanical Ventilator 50 09/09/16 04:00 98.9 72 18 178/58 100 Mechanical Ventilator 50 09/09/16 04:00 68 09/09/16 04:00 50 09/09/16 03:30 70 18 50 09/09/16 03:00 70 18 164/59 100 Mechanical Ventilator 50 09/09/16 02:00 70 18 166/58 100 Mechanical Ventilator 50 09/09/16 01:22 99.8 09/09/16 01:13 75 18 50 09/09/16 01:00 73 18 152/77 100 Mechanical Ventilator 60 09/09/16 00:00 60 09/09/16 00:00 79 09/09/16 00:00 100.4 77 18 177/57 100 Mechanical Ventilator 60 09/08/16 23:08 78 18 50 /08/20 23:00 79 18 170/35 100 Mechanical Ventilator 60 09/08/16 22:00 76 18 149/57 100 Mechanical Ventilator 60 09/08/16 21:30 79 18 50 09/08/16 21:00 75 18 70/24 100 Mechanical Ventilator 60 09/08/16 20:00 98.3 76 18 159/52 100 Mechanical Ventilator 60 09/08/16 20:00 60 09/08/16 20:00 75 09/08/16 19:30 76 18 50 09/08/16 19:00 74 18 144/70 100 Mechanical Ventilator 60 09/08/16 18:00 73 18 161/54 100 Mechanical Ventilator 60 09/08/16 17:40 161/54 09/08/16 17:30 77 18 50 09/08/16 17:00 86 18 161/54 100 Mechanical Ventilator 60 09/08/16 16:00 75 09/08/16 16:00 60 09/08/16 16:00 98.8 76 18 146/53 100 Mechanical Ventilator 60 09/08/16 15:17 72 18 50 09/08/16 15:00 74 18 137/61 100 Mechanical Ventilator 60 09/08/16 14:00 76 18 153/116 100 Mechanical Ventilator 60 09/08/16 13:00 73 18 134/73 100 Mechanical Ventilator 60 09/08/16 12:53 73 18 50 09/08/16 12:00 98.7 70 18 150/56 100 Mechanical Ventilator 60 09/08/16 12:00 60 09/08/16 12:00 72 Status: obtunded Lungs: clear Heart: normal rate Objective: seizures vs myoclonus Micro: Microbiology Date/Time Source Procedure Growth Status 09/07/16 22:00 Sputum Induced Gram Stain - Final Resulted 09/07/16 22:00 Sputum Induced Sputum Culture - Preliminary NORMAL UPPER RESPIRATORY KAYLI AT 24 ... Resulted 09/06/16 22:25 Nasal Nares MRSA Culture - Final NO METHICILLIN RESISTANT STAPH AUREUS... Complete 09/07/16 18:40 Urine,Clean Catch Urine Culture - Preliminary NO GROWTH AFTER 24 HOURS Resulted 09/06/16 22:25 Rectum VRE Culture - Final NO VANCOMYCIN RESISTANT ENTEROCOCCUS ... Complete Accucheck: 132 CHLOE ESQUIVEL Sep 09, 2016 11:14
--- NOTE | 2016-09-09 11:43 | Infectious Diseases Prog Note ---
Assessment/Plan Assessment/Plan antibiotics : vancomycin iv, zosyn A 1. pneumonia 2. respiratory failure 3. renal failure 4. leucocytosis improving 5. s/p cardiac arrest P 1. continue vancomycin iv, zosyn 2. will follow up cultures Subjective ROS Limited/Unobtainable: Yes Allergies: Coded Allergies: NIACIN (Verified Allergy, Unknown, ITCHING, 01/30/12) Objective Vital Signs Last 24 Hour Vital Signs Date Time Temp Pulse Resp B/P Pulse Ox O2 Delivery O2 Flow Rate FiO2 09/09/16 11:24 85 13 50 09/09/16 11:00 81 19 152/79 100 Mechanical Ventilator 50 09/09/16 10:00 78 19 159/55 100 Mechanical Ventilator 50 09/09/16 09:25 77 18 50 09/09/16 09:00 78 19 172/53 100 Mechanical Ventilator 50 09/09/16 08:28 83 177/64 09/09/16 08:27 177/64 09/09/16 08:00 78 09/09/16 08:00 50 09/09/16 08:00 100.2 83 18 177/64 100 Mechanical Ventilator 50 09/09/16 07:25 80 18 50 09/09/16 07:00 80 18 164/51 100 Mechanical Ventilator 50 09/09/16 06:00 90 18 143/79 100 Mechanical Ventilator 50 09/09/16 05:14 76 18 50 09/09/16 05:00 75 18 168/68 100 Mechanical Ventilator 50 09/09/16 04:00 98.9 72 18 178/58 100 Mechanical Ventilator 50 09/09/16 04:00 68 09/09/16 04:00 50 09/09/16 03:30 70 18 50 09/09/16 03:00 70 18 164/59 100 Mechanical Ventilator 50 09/09/16 02:00 70 18 166/58 100 Mechanical Ventilator 50 09/09/16 01:22 99.8 09/09/16 01:13 75 18 50 09/09/16 01:00 73 18 152/77 100 Mechanical Ventilator 60 09/09/16 00:00 60 09/09/16 00:00 79 09/09/16 00:00 100.4 77 18 177/57 100 Mechanical Ventilator 60 09/08/16 23:08 78 18 50 09/08/16 23:00 79 18 170/35 100 Mechanical Ventilator 60 09/08/16 22:00 76 18 149/57 100 Mechanical Ventilator 60 09/08/16 21:30 79 18 50 09/08/16 21:00 75 18 70/24 100 Mechanical Ventilator 60 09/08/16 20:00 98.3 76 18 159/52 100 Mechanical Ventilator 60 09/08/16 20:00 60 09/08/16 20:00 75 09/08/16 19:30 76 18 50 09/08/16 19:00 74 18 144/70 100 Mechanical Ventilator 60 09/08/16 18:00 73 18 161/54 100 Mechanical Ventilator 60 09/08/16 17:40 161/54 09/08/16 17:30 77 18 50 09/08/16 17:00 86 18 161/54 100 Mechanical Ventilator 60 09/08/16 16:00 75 09/08/16 16:00 60 09/08/16 16:00 98.8 76 18 146/53 100 Mechanical Ventilator 60 09/08/16 15:17 72 18 50 09/08/16 15:00 74 18 137/61 100 Mechanical Ventilator 60 09/08/16 14:00 76 18 153/116 100 Mechanical Ventilator 60 09/08/16 13:00 73 18 134/73 100 Mechanical Ventilator 60 09/08/16 12:53 73 18 50 09/08/16 12:00 98.7 70 18 150/56 100 Mechanical Ventilator 60 09/08/16 12:00 60 09/08/16 12:00 72 Height (Feet): 5 Height (Inches): 6.00 Weight (Pounds): 179 HEENT: other - intubated Respiratory/Chest: lungs clear Cardiovascular: normal rate, regular rhythm, no gallop/murmur Abdomen: soft, non tender Extremities: no edema Microbiology Date/Time Source Procedure Growth Status 09/07/16 22:00 Sputum Induced Gram Stain - Final Resulted 09/07/16 22:00 Sputum Induced Sputum Culture - Preliminary NORMAL UPPER RESPIRATORY KAYLI AT 24 ... Resulted 09/06/16 22:25 Nasal Nares MRSA Culture - Final NO METHICILLIN RESISTANT STAPH AUREUS... Complete 09/07/16 18:40 Urine,Clean Catch Urine Culture - Preliminary NO GROWTH AFTER 24 HOURS Resulted 09/06/16 22:25 Rectum VRE Culture - Final NO VANCOMYCIN RESISTANT ENTEROCOCCUS ... Complete Laboratory Tests Test 09/09/16 03:50 White Blood Count 9.9 K/UL (4.8-10.8) Red Blood Count 3.80 M/UL (4.70-6.10) L Hemoglobin 11.5 G/DL (14.2-18.0) L Hematocrit 36.6 % (42.0-52.0) L Mean Corpuscular Volume 96 FL (80-99) Mean Corpuscular Hemoglobin 30.1 PG (27.0-31.0) Mean Corpuscular Hemoglobin Concent 31.3 G/DL (32.0-36.0) L Red Cell Distribution Width 17.8 % (11.6-14.8) H Platelet Count 172 K/UL (150-450) Mean Platelet Volume 6.1 FL (6.5-10.1) L Neutrophils (%) (Auto) 76.2 % (45.0-75.0) H Lymphocytes (%) (Auto) 13.0 % (20.0-45.0) L Monocytes (%) (Auto) 7.2 % (1.0-10.0) Eosinophils (%) (Auto) 1.9 % (0.0-3.0) Basophils (%) (Auto) 1.7 % (0.0-2.0) Sodium Level 149 mEQ/L (135-145) H Potassium Level 4.2 mEQ/L (3.4-4.9) Chloride Level 106 mEQ/L (98-107) Carbon Dioxide Level 22 mEQ/L (20-30) Anion Gap 21 (5-15) H Blood Urea Nitrogen 54 mg/dL (7-23) H Creatinine 7.1 mg/dL (0.7-1.2) H Estimat Glomerular Filtration Rate 7.7 mL/min (>60) Glucose Level 126 mg/dL (74-106) H Calcium Level 9.5 mg/dL (8.6-10.2) Random Vancomycin Level 11.5 ug/mL Phenytoin (Dilantin) Level 6.5 ug/mL (10-20) L Valproic Acid (Depakene) Level 23 ug/mL (50-100) L LEWIS ADAMS Sep 09, 2016 11:43
[2016-09-09] MEDS ORDERED: Midazolam for drip 50 MG in D5W 90 ML IV SCH (14:00)
--- NOTE | 2016-09-09 14:02 | Neurology Progress Note ---
Interim History Interim History ROS Limited/Unobtainable: Yes Complaints: coma Events: intermittent abdomen contractions/ less often today no on HD Objective Physical Exam Last Vital Signs Date Time Temp Pulse Resp B/P Pulse Ox O2 Delivery O2 Flow Rate FiO2 09/09/16 13:29 88 18 50 09/09/16 12:00 99.1 160/65 100 Mechanical Ventilator 09/06/16 22:35 4.0 Laboratory Tests Test 09/09/16 03:50 White Blood Count 9.9 K/UL (4.8-10.8) Red Blood Count 3.80 M/UL (4.70-6.10) L Hemoglobin 11.5 G/DL (14.2-18.0) L Hematocrit 36.6 % (42.0-52.0) L Mean Corpuscular Volume 96 FL (80-99) Mean Corpuscular Hemoglobin 30.1 PG (27.0-31.0) Mean Corpuscular Hemoglobin Concent 31.3 G/DL (32.0-36.0) L Red Cell Distribution Width 17.8 % (11.6-14.8) H Platelet Count 172 K/UL (150-450) Mean Platelet Volume 6.1 FL (6.5-10.1) L Neutrophils (%) (Auto) 76.2 % (45.0-75.0) H Lymphocytes (%) (Auto) 13.0 % (20.0-45.0) L Monocytes (%) (Auto) 7.2 % (1.0-10.0) Eosinophils (%) (Auto) 1.9 % (0.0-3.0) Basophils (%) (Auto) 1.7 % (0.0-2.0) Sodium Level 149 mEQ/L (135-145) H Potassium Level 4.2 mEQ/L (3.4-4.9) Chloride Level 106 mEQ/L (98-107) Carbon Dioxide Level 22 mEQ/L (20-30) Anion Gap 21 (5-15) H Blood Urea Nitrogen 54 mg/dL (7-23) H Creatinine 7.1 mg/dL (0.7-1.2) H Estimat Glomerular Filtration Rate 7.7 mL/min (>60) Glucose Level 126 mg/dL (74-106) H Calcium Level 9.5 mg/dL (8.6-10.2) Random Vancomycin Level 11.5 ug/mL Phenytoin (Dilantin) Level 6.5 ug/mL (10-20) L Valproic Acid (Depakene) Level 23 ug/mL (50-100) L General: other - intubated Head: atraumatic Neck: other - rigid Neurologic Exam Mental Status: other - comatose Speech: other Language: other Cranial Nerve II: no papilledema Cranial Nerves III, IV, : other - p 2mm sluggish aom-minor on doll,s Cranial Nerve V: other - +corneal Cranial Nerve VII: no facial asymmetry Cranial Nerve VIII: other Cranial Nerve IX: other - poor gag on suction Cranial Nerve XI: other Cranial Nerve XII: tongue midline Motor System: other - flaccid with irregular abdomen/BLE jercs Coordination: other Deep Tendon Reflexes: 0 ankle (L), 0 ankle (R), 0 bicep (L), 0 bicep (R), 0 brachioradialis (L), 0 brachioradialis (R), 0 knee (L), 0 knee (R), 0 tricep (L) , 0 tricep (R) Reflexes: mute plantar (L), mute plantar (R) Impression/Recommendations Problems: (1) 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
--- NOTE | 2016-09-09 15:01 | Nephrology Progress Note ---
Assessment/Plan Problem List: (1) ESRD (end stage renal disease) (2) Anoxic encephalopathy syndrome (3) Respiratory failure with hypoxia (4) CHF (congestive heart failure) Plan HD as tolerated Vent support Repeat EEG on Versed Discussed with Dr Bautista and family follow labs Discussed with family Subjective Subjective all noted remains intubated Objective Objective Last 24 Hour Vital Signs Date Time Temp Pulse Resp B/P Pulse Ox O2 Delivery O2 Flow Rate FiO2 09/09/16 14:00 86 19 156/67 98 Mechanical Ventilator 50 09/09/16 13:29 88 18 50 09/09/16 13:20 Mechanical Ventilator 4.0 50 09/09/16 13:00 86 19 167/58 100 Mechanical Ventilator 50 09/09/16 12:00 99.1 79 21 160/65 100 Mechanical Ventilator 50 09/09/16 12:00 85 09/09/16 12:00 50 09/09/16 11:24 85 13 50 09/09/16 11:00 81 19 152/79 100 Mechanical Ventilator 50 09/09/16 10:00 78 19 159/55 100 Mechanical Ventilator 50 09/09/16 09:25 77 18 50 09/09/16 09:00 78 19 172/53 100 Mechanical Ventilator 50 09/09/16 08:28 83 177/64 09/09/16 08:27 177/64 09/09/16 08:00 78 09/09/16 08:00 50 09/09/16 08:00 100.2 83 18 177/64 100 Mechanical Ventilator 50 09/09/16 07:25 80 18 50 09/09/16 07:00 80 18 164/51 100 Mechanical Ventilator 50 09/09/16 06:00 90 18 143/79 100 Mechanical Ventilator 50 09/09/16 05:14 76 18 50 09/09/16 05:00 75 18 168/68 100 Mechanical Ventilator 50 09/09/16 04:00 98.9 72 18 178/58 100 Mechanical Ventilator 50 09/09/16 04:00 68 09/09/16 04:00 50 09/09/16 03:30 70 18 50 09/09/16 03:00 70 18 164/59 100 Mechanical Ventilator 50 09/09/16 02:00 70 18 166/58 100 Mechanical Ventilator 50 09/09/16 01:22 99.8 09/09/16 01:13 75 18 50 09/09/16 01:00 73 18 152/77 100 Mechanical Ventilator 60 09/09/16 00:00 60 09/09/16 00:00 79 09/09/16 00:00 100.4 77 18 177/57 100 Mechanical Ventilator 60 09/08/16 23:08 78 18 50 09/08/16 23:00 79 18 170/35 100 Mechanical Ventilator 60 09/08/16 22:00 76 18 149/57 100 Mechanical Ventilator 60 09/08/16 21:30 79 18 50 09/08/16 21:00 75 18 70/24 100 Mechanical Ventilator 60 09/08/16 20:00 98.3 76 18 159/52 100 Mechanical Ventilator 60 09/08/16 20:00 60 09/08/16 20:00 75 09/08/16 19:30 76 18 50 09/08/16 19:00 74 18 144/70 100 Mechanical Ventilator 60 09/08/16 18:00 73 18 161/54 100 Mechanical Ventilator 60 09/08/16 17:40 161/54 09/08/16 17:30 77 18 50 09/08/16 17:00 86 18 161/54 100 Mechanical Ventilator 60 09/08/16 16:00 75 09/08/16 16:00 60 09/08/16 16:00 98.8 76 18 146/53 100 Mechanical Ventilator 60 09/08/16 15:17 72 18 50 09/08/16 15:00 74 18 137/61 100 Mechanical Ventilator 60 Intake and Output 09/08/16 09/09/16 19:00 07:00 Intake Total 212.5 ml 160 ml Output Total 0 ml Balance 212.5 ml 160 ml Free Water 50 ml IV Total 32.5 ml 100 ml Other 130 ml 60 ml Output Urine Total 0 ml # Voids 2 4 Laboratory Tests 09/09/16 03:50: White Blood Count 9.9, Red Blood Count 3.80L, Hemoglobin 11.5L, Hematocrit 36.6L , Mean Corpuscular Volume 96, Mean Corpuscular Hemoglobin 30.1, Mean Corpuscular Hemoglobin Concent 31.3L, Red Cell Distribution Width 17.8H, Platelet Count 172, Mean Platelet Volume 6.1L, Neutrophils (%) (Auto) 76.2H, Lymphocytes (%) (Auto) 13.0L, Monocytes (%) (Auto) 7.2, Eosinophils (%) (Auto) 1.9, Basophils (%) (Auto) 1.7, Sodium Level 149H, Potassium Level 4.2, Chloride Level 106, Carbon Dioxide Level 22, Anion Gap 21H, Blood Urea Nitrogen 54H, Creatinine 7.1H, Estimat Glomerular Filtration Rate 7.7, Glucose Level 126H, Calcium Level 9.5, Random Vancomycin Level 11.5, Phenytoin (Dilantin) Level 6.5L , Valproic Acid (Depakene) Level 23L Height (Feet): 5 Height (Inches): 6.00 Weight (Pounds): 179 Cardiovascular: normal rate Respiratory/Chest: rhonchi - bilaterally Extremities: trace edema CANDICE BREAUX Sep 09, 2016 15:01
[2016-09-09] MEDS ORDERED: NS 275ml ONE (16:16)
[2016-09-09] MEDS ORDERED: Tubing IV Secondary IV ONE (16:16)
[2016-09-09] MEDS ORDERED: NS 110ml ONE (16:16)
[2016-09-09] MEDS ORDERED: Vancomycin 1250mg/D5W 275ml IVPB ONE ×2 (18:00)
[2016-09-09] MEDS: D5W IV SCH (18:11)
[2016-09-09] MEDS: MIDAZOLAM IV SCH (18:11)
--- NOTE | 2016-09-09 18:23 | Internal Med Progress Note ---
Subjective Date of Service: Sep 09, 2016 Physician Name Filiberto Clancy Attending Physician Harrison Delatorre Current Medications Medications (Trade) Dose Ordered Sig/Mark Route PRN Reason Start Time Stop Time Status Last Admin Dose Admin Acetaminophen (Tylenol) 650 mg Q4H PRN ORAL Mild Pain (Pain Scale 1-3) 09/06/16 23:00 10/06/16 22:59 09/09/16 00:23 Amlodipine Besylate (Norvasc) 10 mg DAILY ORAL 09/07/16 09:00 10/07/16 08:59 09/09/16 08:28 Atorvastatin Calcium (Lipitor) 80 mg DAILY ORAL 09/07/16 09:00 10/07/16 08:59 09/09/16 08:27 Chlorhexidine Gluconate (Lakshmi-Hex 2%) 1 applic DAILY TOPIC 09/08/16 09:00 10/08/16 08:59 09/09/16 06:03 Dextrose (Dextrose 50%) STAT PRN IV Hypoglycemia 09/06/16 23:00 10/06/16 22:59 Heparin Sodium (Porcine) 5000 units 5,000 units EVERY 12 HOURS SUBQ 09/08/16 21:00 10/08/16 20:59 09/09/16 08:24 Insulin Aspart (NovoLOG) EVERY 6 HOURS SUBQ 09/07/16 18:00 10/07/16 17:59 09/09/16 11:20 Lorazepam (Ativan 2mg/ml 1ml) 2 mg Q2H PRN IV For Anxiety 09/07/16 11:00 09/14/16 10:59 09/09/16 11:18 Lorazepam 1 mg 1 mg Q1HR PRN IV For Seizure Activity 09/08/16 22:30 09/15/16 22:29 09/09/16 05:59 Midazolam HCl 50 mg/Dextrose 100 ml @ 0 mls/hr Q24H IV 09/09/16 15:00 10/09/16 14:59 09/09/16 18:11 Minoxidil (Loniten) 5 mg BID ORAL 09/07/16 09:00 10/07/16 08:59 09/09/16 08:27 Phenytoin/Sodium Chloride (Dilantin/Sodium Chloride) 57 ml @ 114 mls/hr Q8H IVPB 09/09/16 09:00 10/09/16 08:59 09/09/16 08:51 Piperacillin Sod/ Tazobactam Sod/ Dextrose (Zosyn/D5W) 55 ml @ 110 mls/hr Q8HR IVPB 09/09/16 22:00 09/16/16 21:59 Polyethylene Glycol (Miralax) 17 gm DAILYPRN PRN ORAL Constipation 09/06/16 23:00 10/06/16 22:59 Ranitidine HCl (Zantac) 150 mg BEDTIME ORAL 09/08/16 21:00 10/08/16 20:59 09/08/16 20:35 Vancomycin HCl (Vanco rx to dose) 1 ea DAILY PRN MISC per rx protocol 09/07/16 12:00 10/07/16 11:59 Vancomycin HCl 1.25 gm/Dextrose 275 ml @ 183.333 mls/hr ONCE ONCE IVPB 09/09/16 18:00 09/09/16 19:29 Allergies: Coded Allergies: NIACIN (Verified Allergy, Unknown, ITCHING, 01/30/12) ROS Limited/Unobtainable: Yes Subjective 71 YO M admitted with volume overload and respiratory failure. S/P cardiopulmonary arrest. ICU. Intubated and sedated. Cover for Int Brad-Dr Vail. Objective Last Vital Signs Date Time Temp Pulse Resp B/P Pulse Ox O2 Delivery O2 Flow Rate FiO2 09/09/16 18:11 15 09/09/16 17:15 92 50 09/09/16 16:31 Mechanical Ventilator 4.0 09/09/16 15:00 122/97 98 09/09/16 12:00 99.1 Laboratory Tests Test 09/09/16 03:50 White Blood Count 9.9 K/UL (4.8-10.8) Red Blood Count 3.80 M/UL (4.70-6.10) L Hemoglobin 11.5 G/DL (14.2-18.0) L Hematocrit 36.6 % (42.0-52.0) L Mean Corpuscular Volume 96 FL (80-99) Mean Corpuscular Hemoglobin 30.1 PG (27.0-31.0) Mean Corpuscular Hemoglobin Concent 31.3 G/DL (32.0-36.0) L Red Cell Distribution Width 17.8 % (11.6-14.8) H Platelet Count 172 K/UL (150-450) Mean Platelet Volume 6.1 FL (6.5-10.1) L Neutrophils (%) (Auto) 76.2 % (45.0-75.0) H Lymphocytes (%) (Auto) 13.0 % (20.0-45.0) L Monocytes (%) (Auto) 7.2 % (1.0-10.0) Eosinophils (%) (Auto) 1.9 % (0.0-3.0) Basophils (%) (Auto) 1.7 % (0.0-2.0) Sodium Level 149 mEQ/L (135-145) H Potassium Level 4.2 mEQ/L (3.4-4.9) Chloride Level 106 mEQ/L (98-107) Carbon Dioxide Level 22 mEQ/L (20-30) Anion Gap 21 (5-15) H Blood Urea Nitrogen 54 mg/dL (7-23) H Creatinine 7.1 mg/dL (0.7-1.2) H Estimat Glomerular Filtration Rate 7.7 mL/min (>60) Glucose Level 126 mg/dL (74-106) H Calcium Level 9.5 mg/dL (8.6-10.2) Random Vancomycin Level 11.5 ug/mL Phenytoin (Dilantin) Level 6.5 ug/mL (10-20) L Valproic Acid (Depakene) Level 23 ug/mL (50-100) L Microbiology Date/Time Source Procedure Growth Status 09/07/16 22:00 Sputum Induced Gram Stain - Final Resulted 09/07/16 22:00 Sputum Induced Sputum Culture - Preliminary NORMAL UPPER RESPIRATORY KAYLI AT 24 ... Resulted 09/06/16 22:25 Nasal Nares MRSA Culture - Final NO METHICILLIN RESISTANT STAPH AUREUS... Complete 09/07/16 18:40 Urine,Clean Catch Urine Culture - Preliminary NO GROWTH AFTER 24 HOURS Resulted 09/06/16 22:25 Rectum VRE Culture - Final NO VANCOMYCIN RESISTANT ENTEROCOCCUS ... Complete Intake and Output 09/08/16 09/09/16 19:00 07:00 Intake Total 212.5 ml 160 ml Output Total 0 ml Balance 212.5 ml 160 ml Free Water 50 ml IV Total 32.5 ml 100 ml Other 130 ml 60 ml Output Urine Total 0 ml # Voids 2 4 Objective General Appearance: WD/WN, lethargic EENT: PERRL/EOMI, normal ENT inspection, TMs normal Neck: non-tender, normal alignment, supple Cardiovascular: normal peripheral pulses, normal rate, regular rhythm, no gallop/murmur, no JVD Respiratory/Chest: Mech vent; chest wall non-tender, crackles/rales, rhonchi - bilaterally, expiratory wheezing Abdomen: normal bowel sounds, non tender, soft, no organomegaly Skin: normal pigmentation, warm/dry Assessment/Plan Problem List: (1) HTN (hypertension) Assessment & Plan: Cont amlodipine. (2) Hyperkalemia (3) Respiratory failure with hypoxia Assessment & Plan: Intubated and sedated. Change reed press feeder to Dr Montero per Dr Alvarez request. Cont vanco and zosyn per ID (4) ESRD (end stage renal disease) Assessment & Plan: See nephrology note. Hemodialysis per nephrology (5) CHF (congestive heart failure) (6) Diabetes mellitus Assessment & Plan: Cont novolog sliding scale. 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 Await EEG (9) Anoxic encephalopathy syndrome Assessment & Plan: See neruo note. Status: not improved Assessment/Plan Prognosis is poor. FILIBERTO CLANCY Sep 09, 2016 18:23
[2016-09-09] MEDS ORDERED: Lidocaine 1% Plain 30 ml INJ PRN (18:30)
[2016-09-09] MEDS ORDERED: Sodium Bicarbonate 4% 2.4meq/5ml vial INJ PRN (18:30)
[2016-09-09] MEDS ORDERED: Heparin 2000 units/Ns 1000ml INJ PRN (18:30)
[2016-09-09] MEDS: Phenytoin Susp 100mg/4ml NG SCH ×3 (19:02→21:52)
[2016-09-10] VITALS (40 sets, daily range): BP systolic 99–172; BP diastolic 33–63
[2016-09-10] MEDS: NovoLOG Insulin Flexpen SUBQ SCH ×5 (00:20→23:48)
--- NOTE | 2016-09-10 01:01 | Electroencephalogram ---
DATE OF PROCEDURE: 09/08/2016 Electroencephalography Report REQUESTING PHYSICIAN: Harrison Delatorre M.D. HISTORY: This is a 71 years old man who developed acute anoxic encephalopathy followed by generalized shaking. During the recording, the patient was comatose now placed on Dilantin. EEG was done using 18 electrodes placed scalp to scalp and scalp to ear montages according to 10/20 International System. Most of the recording background activity consisted of high voltage generalized slow-wave for triphasic at times sharp, and slow-wave generalized transients every once in 1 to 2 seconds, followed by generalized 2 to 3 second suppression in a very low voltage consists of a mixture of 3 to 6 hertz activities. There were no significant asymmetry from [id number]. There is no epileptiform activity described. During the recording, the patient was noted to have some twitching in his lower extremities. IMPRESSION: Intermittent continuous burst of spike and slow wave generalized transients followed by suppression coinciding with leg twitching. COMMENT: Abnormality represent a burst suppression pattern with what seems generalized epileptogenic activity. This may represent ongoing intermittent seizure activities. Clinical correlation is necessary. Overall, this represents a poor prognosis for the patient with anoxic encephalopathy. Star Bautista M.D. DR: MARCO A JOB#: [id number] CC:
[2016-09-10] MEDS: Dyna-Hex 2% Top Sol 8oz TOPIC SCH ×2 (04:23→10:18)
[2016-09-10 04:46] LABS: BASOPHILS % (AUTO) 0.8 % (0.0-2.0); EOSINOPHILS % (AUTO) 3.3 % (0.0-3.0); LYMPHOCYTES % (AUTO) 11.4 % (20.0-45.0); MEAN CORPUSCULAR HEMOGLOBIN 29.7 PG (27.0-31.0); MEAN CORPUSCULAR HGB CONC 31.2 G/DL (32.0-36.0); MEAN CORPUSCULAR VOLUME 95 FL (80-99); MEAN PLATELET VOLUME 6.4 FL (6.5-10.1); NEUTROPHILS % (AUTO) 75.5 % (45.0-75.0); PLATELET COUNT 195 K/UL (150-450); RED CELL DISTRIBUTION WIDTH 17.4 % (11.6-14.8); WHITE BLOOD COUNT 10.2 K/UL (4.8-10.8)
[2016-09-10 05:32] LABS: CALCIUM 9.1 mg/dL (8.6-10.2); CREATININE 5.2 mg/dL (0.7-1.2); POTASSIUM 3.1 mEQ/L (3.4-4.9)
[2016-09-10] MEDS: Piperacillin/Tazobactam 2.25 GM in D5W 55 ML IVPB SCH ×3 (05:50→22:03)
[2016-09-10] MEDS ORDERED: Phenytoin 100 MG in NS 55 ML IVPB SCH ×2 (08:00→09:00)
[2016-09-10] MEDS: Atorvastatin 80mg tab ORAL SCH (09:56)
[2016-09-10] MEDS: Minoxidil 2.5mg tab ORAL SCH ×2 (09:58→17:13)
[2016-09-10] MEDS: Heparin 5000 units/ml inj SUBQ SCH ×2 (10:08→21:01)
[2016-09-10] MEDS ORDERED: NS 275ml ONE (10:34)
--- NOTE | 2016-09-10 10:35 | Infectious Diseases Prog Note ---
Assessment/Plan Assessment/Plan antibiotics : vancomycin iv, zosyn A 1. pneumonia 2. respiratory failure 3. renal failure 4. leucocytosis improving 5. s/p cardiac arrest P 1. continue vancomycin iv, zosyn 2. will follow up cultures Subjective ROS Limited/Unobtainable: Yes Allergies: Coded Allergies: NIACIN (Verified Allergy, Unknown, ITCHING, 01/30/12) Objective Vital Signs Last 24 Hour Vital Signs Date Time Temp Pulse Resp B/P Pulse Ox O2 Delivery O2 Flow Rate FiO2 09/10/16 10:00 81 12 154/51 21 Mechanical Ventilator 50 09/10/16 09:59 82 172/63 09/10/16 09:58 172/63 09/10/16 09:30 80 12 165/60 21 Mechanical Ventilator 50 09/10/16 09:00 81 12 172/63 21 Mechanical Ventilator 50 09/10/16 08:55 83 20 50 09/10/16 08:30 84 18 147/42 100 Mechanical Ventilator 50 09/10/16 08:00 89 09/10/16 08:00 99.2 80 16 148/50 100 Mechanical Ventilator 50 09/10/16 08:00 50 09/10/16 07:30 78 18 147/42 100 Mechanical Ventilator 50 09/10/16 07:05 79 13 50 09/10/16 07:00 79 12 147/42 100 Mechanical Ventilator 50 09/10/16 07:00 12 09/10/16 06:00 78 14 128/44 100 Mechanical Ventilator 50 09/10/16 06:00 14 09/10/16 05:27 95 22 50 09/10/16 05:00 79 12 125/40 100 Mechanical Ventilator 50 09/10/16 05:00 14 09/10/16 04:00 99.0 81 15 125/41 100 Mechanical Ventilator 50 09/10/16 04:00 15 09/10/16 04:00 50 09/10/16 04:00 78 09/10/16 03:10 97 22 50 09/10/16 03:00 14 09/10/16 03:00 83 14 129/38 100 Mechanical Ventilator 50 09/10/16 02:00 14 09/10/16 02:00 82 14 127/33 100 Mechanical Ventilator 50 09/10/16 01:00 87 14 108/41 100 Mechanical Ventilator 50 09/10/16 01:00 15 09/10/16 00:31 97 22 50 09/10/16 00:00 50 09/10/16 00:00 99.1 94 14 111/36 100 Mechanical Ventilator 50 09/10/16 00:00 15 09/10/16 00:00 96 6 23:21 95 27 50 09/09/16 23:00 101 16 102/45 98 Mechanical Ventilator 50 09/09/16 23:00 15 09/09/16 22:00 107 17 154/67 98 Mechanical Ventilator 50 09/09/16 22:00 15 09/09/16 21:47 82 20 50 09/09/16 21:00 98 19 167/55 98 Mechanical Ventilator 50 09/09/16 21:00 14 09/09/16 20:00 98.9 91 19 155/55 100 Mechanical Ventilator 50 09/09/16 20:00 50 09/09/16 20:00 15 09/09/16 20:00 92 09/09/16 19:47 87 21 50 09/09/16 19:00 95 19 141/77 98 Mechanical Ventilator 50 09/09/16 19:00 14 09/09/16 18:57 142/65 09/09/16 18:11 15 09/09/16 18:00 92 19 142/55 98 Mechanical Ventilator 50 09/09/16 17:15 92 15 50 09/09/16 17:00 91 19 159/75 98 Mechanical Ventilator 50 09/09/16 16:31 Mechanical Ventilator 4.0 50 09/09/16 16:00 99.0 92 19 131/70 98 Mechanical Ventilator 50 09/09/16 16:00 90 09/09/16 16:00 50 09/09/16 15:23 80 14 50 09/09/17 15:00 90 19 122/97 98 Mechanical Ventilator 50 17 14:00 86 19 156/67 98 Mechanical Ventilator 50 617 13:29 88 18 50 66/17 13:20 Mechanical Ventilator 4.0 50 17 13:00 86 19 167/58 100 Mechanical Ventilator 50 617 12:00 99.1 79 21 160/65 100 Mechanical Ventilator 50 66/17 12:00 85 6 12:00 50 617 11:24 85 13 50 6/6/17 11:00 81 19 152/79 100 Mechanical Ventilator 50 Height (Feet): 5 Height (Inches): 6.00 Weight (Pounds): 176 HEENT: other - intubated Respiratory/Chest: lungs clear Cardiovascular: normal rate, regular rhythm, no gallop/murmur Abdomen: soft, non tender Extremities: no edema Microbiology Date/Time Source Procedure Growth Status 09/07/16 22:00 Sputum Induced Gram Stain - Final Complete 09/07/16 22:00 Sputum Induced Sputum Culture - Final NORMAL UPPER RESPIRATORY KAYLI PRESENT Complete 09/07/16 18:40 Urine,Clean Catch Urine Culture - Final NO GROWTH AFTER 48 HOURS Complete Laboratory Tests Test 09/10/16 03:25 White Blood Count 10.2 K/UL (4.8-10.8) Red Blood Count 3.70 M/UL (4.70-6.10) L Hemoglobin 11.0 G/DL (14.2-18.0) L Hematocrit 35.2 % (42.0-52.0) L Mean Corpuscular Volume 95 FL (80-99) Mean Corpuscular Hemoglobin 29.7 PG (27.0-31.0) Mean Corpuscular Hemoglobin Concent 31.2 G/DL (32.0-36.0) L Red Cell Distribution Width 17.4 % (11.6-14.8) H Platelet Count 195 K/UL (150-450) Mean Platelet Volume 6.4 FL (6.5-10.1) L Neutrophils (%) (Auto) 75.5 % (45.0-75.0) H Lymphocytes (%) (Auto) 11.4 % (20.0-45.0) L Monocytes (%) (Auto) 9.0 % (1.0-10.0) Eosinophils (%) (Auto) 3.3 % (0.0-3.0) H Basophils (%) (Auto) 0.8 % (0.0-2.0) Activated Partial Thromboplast Time 29 SEC (23-33) Sodium Level 143 mEQ/L (135-145) Potassium Level 3.1 mEQ/L (3.4-4.9) L Chloride Level 101 mEQ/L (98-107) Carbon Dioxide Level 25 mEQ/L (20-30) Anion Gap 17 (5-15) H Blood Urea Nitrogen 37 mg/dL (7-23) H Creatinine 5.2 mg/dL (0.7-1.2) H Estimat Glomerular Filtration Rate 11.0 mL/min (>60) Glucose Level 134 mg/dL (74-106) H Calcium Level 9.1 mg/dL (8.6-10.2) Phenytoin (Dilantin) Level 4.9 ug/mL (10-20) L Valproic Acid (Depakene) Level 6 ug/mL (50-100) L LEWIS ADAMS Sep 10, 2016 10:35
--- NOTE | 2016-09-10 11:14 | Neurology Progress Note ---
Interim History Interim History ROS Limited/Unobtainable: Yes Complaints: coma Events: intermittent abdomen contractions/when stimulated less often today Objective Physical Exam Last Vital Signs Date Time Temp Pulse Resp B/P Pulse Ox O2 Delivery O2 Flow Rate FiO2 09/10/16 10:00 81 12 154/51 21 Mechanical Ventilator 50 09/10/16 08:00 99.2 09/09/16 16:31 4.0 Laboratory Tests Test 09/10/16 03:25 White Blood Count 10.2 K/UL (4.8-10.8) Red Blood Count 3.70 M/UL (4.70-6.10) L Hemoglobin 11.0 G/DL (14.2-18.0) L Hematocrit 35.2 % (42.0-52.0) L Mean Corpuscular Volume 95 FL (80-99) Mean Corpuscular Hemoglobin 29.7 PG (27.0-31.0) Mean Corpuscular Hemoglobin Concent 31.2 G/DL (32.0-36.0) L Red Cell Distribution Width 17.4 % (11.6-14.8) H Platelet Count 195 K/UL (150-450) Mean Platelet Volume 6.4 FL (6.5-10.1) L Neutrophils (%) (Auto) 75.5 % (45.0-75.0) H Lymphocytes (%) (Auto) 11.4 % (20.0-45.0) L Monocytes (%) (Auto) 9.0 % (1.0-10.0) Eosinophils (%) (Auto) 3.3 % (0.0-3.0) H Basophils (%) (Auto) 0.8 % (0.0-2.0) Activated Partial Thromboplast Time 29 SEC (23-33) Sodium Level 143 mEQ/L (135-145) Potassium Level 3.1 mEQ/L (3.4-4.9) L Chloride Level 101 mEQ/L (98-107) Carbon Dioxide Level 25 mEQ/L (20-30) Anion Gap 17 (5-15) H Blood Urea Nitrogen 37 mg/dL (7-23) H Creatinine 5.2 mg/dL (0.7-1.2) H Estimat Glomerular Filtration Rate 11.0 mL/min (>60) Glucose Level 134 mg/dL (74-106) H Calcium Level 9.1 mg/dL (8.6-10.2) Phenytoin (Dilantin) Level 4.9 ug/mL (10-20) L Valproic Acid (Depakene) Level 6 ug/mL (50-100) L General: other - intubated with pain noted again generalised twitching Head: atraumatic Neck: other - rigid Neurologic Exam Mental Status: other - comatose Speech: other Language: other Cranial Nerve II: no papilledema Cranial Nerves III, IV, : other - p 2mm sluggish aom-minor on doll,s Cranial Nerve V: other - +corneal Cranial Nerve VII: no facial asymmetry Cranial Nerve VIII: other Cranial Nerve IX: other - poor gag on suction Cranial Nerve XI: other Cranial Nerve XII: tongue midline Motor System: other - flaccid with irregular abdomen/BLE jercs Coordination: other Deep Tendon Reflexes: 0 ankle (L), 0 ankle (R), 0 bicep (L), 0 bicep (R), 0 brachioradialis (L), 0 brachioradialis (R), 0 knee (L), 0 knee (R), 0 tricep (L) , 0 tricep (R) Reflexes: mute plantar (L), mute plantar (R) Impression/Recommendations Problems: (1) 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
--- NOTE | 2016-09-10 12:56 | Internal Med Progress Note ---
Subjective Date of Service: Sep 10, 2016 Physician Name Filiberto Clancy Attending Physician Harrison Delatorre Current Medications Medications (Trade) Dose Ordered Sig/Mark Route PRN Reason Start Time Stop Time Status Last Admin Dose Admin Acetaminophen (Tylenol) 650 mg Q4H PRN ORAL Mild Pain (Pain Scale 1-3) 09/06/16 23:00 10/06/16 22:59 09/09/16 00:23 Amlodipine Besylate (Norvasc) 10 mg DAILY ORAL 09/07/16 09:00 10/07/16 08:59 09/10/16 09:59 Chlorhexidine Gluconate 1 applic 1 applic DAILY TOPIC 09/10/16 03:30 10/10/16 03:29 09/10/16 10:18 Dextrose (Dextrose 50%) STAT PRN IV Hypoglycemia 09/06/16 23:00 10/06/16 22:59 Heparin Sodium (Porcine) (Heparin 5000 units/ml) 5,000 units EVERY 12 HOURS SUBQ 09/08/16 21:00 10/08/16 20:59 09/10/16 10:08 Heparin Sodium/ Sodium Chloride (Heparin 2000 units/Ns 1000ml premix) 2,000 unit ONCE PRN INJ PICC PLACEMENT 09/09/16 18:30 09/10/16 23:59 Insulin Aspart (NovoLOG) EVERY 6 HOURS SUBQ 09/07/16 18:00 10/07/16 17:59 09/10/16 05:51 Lidocaine HCl (Xylocaine 1% 30ml) 30 ml ONCE PRN INJ PICC PLACEMENT 09/09/16 18:30 09/10/16 23:59 Lorazepam (Ativan 2mg/ml 1ml) 2 mg Q2H PRN IV For Anxiety 09/07/16 11:00 09/14/16 10:59 09/09/16 11:18 Lorazepam 1 mg 1 mg Q1HR PRN IV For Seizure Activity 09/08/16 22:30 09/15/16 22:29 09/09/16 05:59 Midazolam HCl 50 mg/Dextrose 100 ml @ 0 mls/hr Q24H IV 09/09/16 15:00 10/09/16 14:59 09/09/16 18:11 Minoxidil (Loniten) 5 mg BID ORAL 09/07/16 09:00 10/07/16 08:59 09/10/16 09:58 Phenytoin 200 mg/ Sodium Chloride 59 ml @ 114 mls/hr [id number] PHENYTOIN IVPB 09/10/16 16:00 10/10/16 15:59 Piperacillin Sod/ Tazobactam Sod/ Dextrose (Zosyn/D5W) 55 ml @ 110 mls/hr Q8HR IVPB 09/09/16 22:00 09/16/16 21:59 09/10/16 05:50 Polyethylene Glycol (Miralax) 17 gm DAILYPRN PRN ORAL Constipation 09/06/16 23:00 10/06/16 22:59 Ranitidine HCl (Zantac) 150 mg BEDTIME ORAL 09/08/16 21:00 10/08/16 20:59 09/09/16 21:25 Sodium Bicarbonate (Sodium Bicarbonate 4%) 1 ml ONCE PRN INJ PICC PLACEMENT 09/09/16 18:30 09/10/16 23:59 Valproate Sodium/ Dextrose (Depacon Inj/D5W) 65 ml @ 32.5 mls/hr Q12HR IV 09/10/16 12:30 10/10/16 12:29 Vancomycin HCl (Vanco rx to dose) 1 ea DAILY PRN MISC per rx protocol 09/07/16 12:00 10/07/16 11:59 Allergies: Coded Allergies: NIACIN (Verified Allergy, Unknown, ITCHING, 01/30/12) ROS Limited/Unobtainable: Yes Subjective 71 YO M admitted with volume overload and respiratory failure. S/P cardiopulmonary arrest. ICU. Intubated and sedated. Cover for Int Brad-Dr Vail. Objective Last Vital Signs Date Time Temp Pulse Resp B/P Pulse Ox O2 Delivery O2 Flow Rate FiO2 09/10/16 12:00 50 09/10/16 12:00 98.6 86 21 124/43 100 Mechanical Ventilator 09/09/16 16:31 4.0 Laboratory Tests Test 09/10/16 03:25 White Blood Count 10.2 K/UL (4.8-10.8) Red Blood Count 3.70 M/UL (4.70-6.10) L Hemoglobin 11.0 G/DL (14.2-18.0) L Hematocrit 35.2 % (42.0-52.0) L Mean Corpuscular Volume 95 FL (80-99) Mean Corpuscular Hemoglobin 29.7 PG (27.0-31.0) Mean Corpuscular Hemoglobin Concent 31.2 G/DL (32.0-36.0) L Red Cell Distribution Width 17.4 % (11.6-14.8) H Platelet Count 195 K/UL (150-450) Mean Platelet Volume 6.4 FL (6.5-10.1) L Neutrophils (%) (Auto) 75.5 % (45.0-75.0) H Lymphocytes (%) (Auto) 11.4 % (20.0-45.0) L Monocytes (%) (Auto) 9.0 % (1.0-10.0) Eosinophils (%) (Auto) 3.3 % (0.0-3.0) H Basophils (%) (Auto) 0.8 % (0.0-2.0) Activated Partial Thromboplast Time 29 SEC (23-33) Sodium Level 143 mEQ/L (135-145) Potassium Level 3.1 mEQ/L (3.4-4.9) L Chloride Level 101 mEQ/L (98-107) Carbon Dioxide Level 25 mEQ/L (20-30) Anion Gap 17 (5-15) H Blood Urea Nitrogen 37 mg/dL (7-23) H Creatinine 5.2 mg/dL (0.7-1.2) H Estimat Glomerular Filtration Rate 11.0 mL/min (>60) Glucose Level 134 mg/dL (74-106) H Calcium Level 9.1 mg/dL (8.6-10.2) Phenytoin (Dilantin) Level 4.9 ug/mL (10-20) L Valproic Acid (Depakene) Level 6 ug/mL (50-100) L Microbiology Date/Time Source Procedure Growth Status 09/07/16 22:00 Sputum Induced Gram Stain - Final Complete 09/07/16 22:00 Sputum Induced Sputum Culture - Final NORMAL UPPER RESPIRATORY KAYLI PRESENT Complete 09/07/16 18:40 Urine,Clean Catch Urine Culture - Final NO GROWTH AFTER 48 HOURS Complete Intake and Output 09/09/16 09/10/16 19:00 07:00 Intake Total 30 ml 415 ml Output Total 1200 ml Balance -1170 ml 415 ml IV Total 385 ml Other 30 ml 30 ml Hemodialysis UF 1200 ml # Voids 2 4 Objective General Appearance: WD/WN, lethargic EENT: PERRL/EOMI, normal ENT inspection, TMs normal Neck: non-tender, normal alignment, supple Cardiovascular: normal peripheral pulses, normal rate, regular rhythm, no gallop/murmur, no JVD Respiratory/Chest: Mech vent; chest wall non-tender, crackles/rales, rhonchi - bilaterally, expiratory wheezing Abdomen: normal bowel sounds, non tender, soft, no organomegaly Skin: normal pigmentation, warm/dry Assessment/Plan Problem List: (1) HTN (hypertension) Assessment & Plan: Cont amlodipine. (2) Hyperkalemia (3) Respiratory failure with hypoxia Assessment & Plan: Intubated and sedated. Cont vanco and zosyn per ID (4) ESRD (end stage renal disease) Assessment & Plan: See nephrology note. Last Hemodialysis 09/09/16 per nephrology (5) CHF (congestive heart failure) (6) Diabetes mellitus Assessment & Plan: Cont novolog sliding scale. 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 Await EEG (9) Anoxic encephalopathy syndrome Assessment & Plan: See neruo note. Status: unchanged Assessment/Plan Prognosis is poor. FILIBERTO CLANCY Sep 10, 2016 12:56
[2016-09-10] MEDS: Valproate Sodium INJ 1,000 MG in D5W 55 ML IV SCH ×2 (13:05→20:59)
--- NOTE | 2016-09-10 14:31 | Nephrology Progress Note ---
Assessment/Plan Problem List: (1) ESRD (end stage renal disease) (2) Anoxic encephalopathy syndrome (3) Respiratory failure with hypoxia (4) CHF (congestive heart failure) Plan HD in AM central line/no picc line Vent support Repeat EEG on Versed Discussed with family follow labs Subjective Subjective all noted remains intubated Objective Objective Last 24 Hour Vital Signs Date Time Temp Pulse Resp B/P Pulse Ox O2 Delivery O2 Flow Rate FiO2 09/10/16 14:00 86 19 146/49 100 Mechanical Ventilator 50 09/10/16 13:30 87 19 146/43 100 Mechanical Ventilator 50 09/10/16 13:05 86 16 50 09/10/16 13:00 86 18 136/49 100 Mechanical Ventilator 50 09/10/16 12:30 89 19 131/45 100 Mechanical Ventilator 50 09/10/16 12:00 50 09/10/16 12:00 98.6 86 21 124/43 100 Mechanical Ventilator 50 09/10/16 12:00 85 09/10/16 11:30 85 19 127/44 100 Mechanical Ventilator 50 09/10/16 11:29 84 19 50 09/10/16 11:00 82 18 154/56 100 Mechanical Ventilator 50 09/10/16 10:30 82 19 136/60 100 Mechanical Ventilator 50 09/10/16 10:00 81 12 154/51 21 Mechanical Ventilator 50 09/10/16 09:59 82 172/63 09/10/16 09:58 172/63 09/10/16 09:30 80 12 165/60 21 Mechanical Ventilator 50 09/10/16 09:00 81 12 172/63 21 Mechanical Ventilator 50 09/10/16 08:55 83 20 50 09/10/16 08:30 84 18 147/42 100 Mechanical Ventilator 50 09/10/16 08:00 89 09/10/16 08:00 99.2 80 16 148/50 100 Mechanical Ventilator 50 09/10/16 08:00 50 09/10/16 07:30 78 18 147/42 100 Mechanical Ventilator 50 09/10/16 07:05 79 13 50 09/10/16 07:00 79 12 147/42 100 Mechanical Ventilator 50 09/10/16 07:00 12 09/10/16 06:00 78 14 128/44 100 Mechanical Ventilator 50 09/10/16 06:00 14 09/10/16 05:27 95 22 50 09/10/16 05:00 79 12 125/40 100 Mechanical Ventilator 50 09/10/16 05:00 14 09/10/16 04:00 99.0 81 15 125/41 100 Mechanical Ventilator 50 09/10/16 04:00 15 09/10/16 04:00 50 09/10/16 04:00 78 09/10/16 03:10 97 22 50 09/10/16 03:00 14 09/10/16 03:00 83 14 129/38 100 Mechanical Ventilator 50 09/10/16 02:00 14 09/10/16 02:00 82 14 127/33 100 Mechanical Ventilator 50 09/10/16 01:00 87 14 108/41 100 Mechanical Ventilator 50 09/10/16 01:00 15 09/10/16 00:31 97 22 50 09/10/16 00:00 50 09/10/16 00:00 99.1 94 14 111/36 100 Mechanical Ventilator 50 09/10/16 00:00 15 09/10/16 00:00 96 09/09/16 23:21 95 27 50 09/09/16 23:00 101 16 102/45 98 Mechanical Ventilator 50 09/09/16 23:00 15 09/09/16 22:00 107 17 154/67 98 Mechanical Ventilator 50 09/09/16 22:00 15 09/09/16 21:47 82 20 50 09/09/16 21:00 98 19 167/55 98 Mechanical Ventilator 50 09/09/16 21:00 14 09/09/16 20:00 98.9 91 19 155/55 100 Mechanical Ventilator 50 09/09/16 20:00 50 09/09/16 20:00 15 09/09/16 20:00 92 09/09/16 19:47 87 21 50 09/09/16 19:00 95 19 141/77 98 Mechanical Ventilator 50 09/09/16 19:00 14 09/09/16 18:57 142/65 09/09/16 18:11 15 09/09/16 18:00 92 19 142/55 98 Mechanical Ventilator 50 17 17:15 92 15 50 09/09/16 17:00 91 19 159/75 98 Mechanical Ventilator 50 09/09/16 16:31 Mechanical Ventilator 4.0 50 09/09/16 16:00 99.0 92 19 131/70 98 Mechanical Ventilator 50 617 16:00 90 09/09/16 16:00 50 09/09/16 15:23 80 14 50 09/09/16 15:00 90 19 122/97 98 Mechanical Ventilator 50 Intake and Output 09/09/16 09/10/16 19:00 07:00 Intake Total 30 ml 415 ml Output Total 1200 ml Balance -1170 ml 415 ml IV Total 385 ml Other 30 ml 30 ml Hemodialysis UF 1200 ml # Voids 2 4 Laboratory Tests 09/10/16 03:25: White Blood Count 10.2, Red Blood Count 3.70L, Hemoglobin 11.0L, Hematocrit 35.2L, Mean Corpuscular Volume 95, Mean Corpuscular Hemoglobin 29.7, Mean Corpuscular Hemoglobin Concent 31.2L, Red Cell Distribution Width 17.4H, Platelet Count 195, Mean Platelet Volume 6.4L, Neutrophils (%) (Auto) 75.5H, Lymphocytes (%) (Auto) 11.4L, Monocytes (%) (Auto) 9.0, Eosinophils (%) (Auto) 3.3H, Basophils (%) (Auto) 0.8, Activated Partial Thromboplast Time 29, Sodium Level 143, Potassium Level 3.1L, Chloride Level 101, Carbon Dioxide Level 25, Anion Gap 17H, Blood Urea Nitrogen 37H, Creatinine 5.2H, Estimat Glomerular Filtration Rate 11.0, Glucose Level 134H, Calcium Level 9.1, Phenytoin (Dilantin ) Level 4.9L, Valproic Acid (Depakene) Level 6L Height (Feet): 5 Height (Inches): 6.00 Weight (Pounds): 176 Cardiovascular: normal rate Respiratory/Chest: lungs clear Extremities: other - no edema CANDICE BREAUX Sep 10, 2016 14:31
[2016-09-10] MEDS: MIDAZOLAM IV SCH (15:40)
[2016-09-10] MEDS: D5W IV SCH (15:40)
--- NOTE | 2016-09-10 15:45 | Cardiology Progress Note ---
Assessment/Plan Assessment/Plan cardiopulm arrest anoxic encephalopathy esrd on hd noncompliant with dialysis htn chronic diastolic failure hx cad satus epilepticus all trop neg ekg noted telel neg reviewed 09/10/2016 on the vent dialysis as planned neuro fu bp seem elevated mildy will adjust meds echo reviwed shwoe normal lv fucntion with mod diastolic dysfucntion prognosis guarded unless he showes some neuro recovery signs d/w rn d/w family Subjective ROS Limited/Unobtainable: Yes Subjective on verntnot responsive except to noxious stimuli grimaces Objective Last 24 Hour Vital Signs Date Time Temp Pulse Resp B/P Pulse Ox O2 Delivery O2 Flow Rate FiO2 09/10/16 15:40 20 09/10/16 15:00 87 20 156/49 100 Mechanical Ventilator 50 09/10/16 14:46 76 17 50 09/10/16 14:30 85 25 148/52 100 Mechanical Ventilator 50 09/10/16 14:00 86 19 146/49 100 Mechanical Ventilator 50 09/10/16 14:00 18 09/10/16 13:30 87 19 146/43 100 Mechanical Ventilator 50 09/10/16 13:05 86 16 50 09/10/16 13:00 86 18 136/49 100 Mechanical Ventilator 50 09/10/16 13:00 18 09/10/16 12:30 89 19 131/45 100 Mechanical Ventilator 50 09/10/16 12:00 50 09/10/16 12:00 20 09/10/16 12:00 98.6 86 21 124/43 100 Mechanical Ventilator 50 09/10/16 12:00 85 09/10/16 11:30 85 19 127/44 100 Mechanical Ventilator 50 09/10/16 11:29 84 19 50 09/10/16 11:00 18 09/10/16 11:00 82 18 154/56 100 Mechanical Ventilator 50 09/10/16 10:30 82 19 136/60 100 Mechanical Ventilator 50 09/10/16 10:00 81 12 154/51 21 Mechanical Ventilator 50 09/10/16 10:00 22 09/10/16 09:59 82 172/63 09/10/16 09:58 172/63 09/10/16 09:30 80 12 165/60 21 Mechanical Ventilator 50 09/10/16 09:00 81 12 172/63 21 Mechanical Ventilator 50 09/10/16 09:00 18 09/10/16 08:55 83 20 50 09/10/16 08:30 84 18 147/42 100 Mechanical Ventilator 50 09/10/16 08:00 89 09/10/16 08:00 99.2 80 16 148/50 100 Mechanical Ventilator 50 09/10/16 08:00 20 09/10/16 08:00 50 09/10/16 07:30 78 18 147/42 100 Mechanical Ventilator 50 09/10/16 07:05 79 13 50 09/10/16 07:00 79 12 147/42 100 Mechanical Ventilator 50 09/10/16 07:00 12 09/10/16 06:00 78 14 128/44 100 Mechanical Ventilator 50 09/10/16 06:00 14 09/10/16 05:27 95 22 50 09/10/16 05:00 79 12 125/40 100 Mechanical Ventilator 50 09/10/16 05:00 14 09/10/16 04:00 99.0 81 15 125/41 100 Mechanical Ventilator 50 09/10/16 04:00 15 09/10/16 04:00 50 09/10/16 04:00 78 09/10/16 03:10 97 22 50 09/10/16 03:00 14 09/10/16 03:00 83 14 129/38 100 Mechanical Ventilator 50 09/10/16 02:00 14 09/10/16 02:00 82 14 127/33 100 Mechanical Ventilator 50 09/10/16 01:00 87 14 108/41 100 Mechanical Ventilator 50 09/10/16 01:00 15 09/10/16 00:31 97 22 50 09/10/16 00:00 50 09/10/16 00:00 99.1 94 14 111/36 100 Mechanical Ventilator 50 09/10/16 00:00 15 09/10/16 00:00 96 09/09/16 23:21 95 27 50 09/09/16 23:00 101 16 102/45 98 Mechanical Ventilator 50 09/09/16 23:00 15 09/09/16 22:00 107 17 154/67 98 Mechanical Ventilator 50 09/09/16 22:00 15 09/09/16 21:47 82 20 50 09/09/16 21:00 98 19 167/55 98 Mechanical Ventilator 50 09/09/16 21:00 14 09/09/16 20:00 98.9 91 19 155/55 100 Mechanical Ventilator 50 09/09/16 20:00 50 09/09/16 20:00 15 09/09/16 20:00 92 09/09/16 19:47 87 21 50 09/09/16 19:00 95 19 141/77 98 Mechanical Ventilator 50 09/09/16 19:00 14 09/09/16 18:57 142/65 09/09/16 18:11 15 09/09/16 18:00 92 19 142/55 98 Mechanical Ventilator 50 09/09/16 17:15 92 15 50 09/09/16 17:00 91 19 159/75 98 Mechanical Ventilator 50 09/09/16 16:31 Mechanical Ventilator 4.0 50 09/09/16 16:00 99.0 92 19 131/70 98 Mechanical Ventilator 50 09/09/16 16:00 90 09/09/16 16:00 50 General Appearance: lethargic, on vent Neck: supple Cardiovascular: normal rate, regular rhythm Respiratory/Chest: lungs clear, normal breath sounds Abdomen: normal bowel sounds, non tender, soft Extremities: no swelling Intake and Output 09/09/16 09/10/16 19:00 07:00 Intake Total 30 ml 415 ml Output Total 1200 ml Balance -1170 ml 415 ml IV Total 385 ml Other 30 ml 30 ml Hemodialysis UF 1200 ml # Voids 2 4 Laboratory Tests Test 09/10/16 03:25 White Blood Count 10.2 K/UL (4.8-10.8) Red Blood Count 3.70 M/UL (4.70-6.10) L Hemoglobin 11.0 G/DL (14.2-18.0) L Hematocrit 35.2 % (42.0-52.0) L Mean Corpuscular Volume 95 FL (80-99) Mean Corpuscular Hemoglobin 29.7 PG (27.0-31.0) Mean Corpuscular Hemoglobin Concent 31.2 G/DL (32.0-36.0) L Red Cell Distribution Width 17.4 % (11.6-14.8) H Platelet Count 195 K/UL (150-450) Mean Platelet Volume 6.4 FL (6.5-10.1) L Neutrophils (%) (Auto) 75.5 % (45.0-75.0) H Lymphocytes (%) (Auto) 11.4 % (20.0-45.0) L Monocytes (%) (Auto) 9.0 % (1.0-10.0) Eosinophils (%) (Auto) 3.3 % (0.0-3.0) H Basophils (%) (Auto) 0.8 % (0.0-2.0) Activated Partial Thromboplast Time 29 SEC (23-33) Sodium Level 143 mEQ/L (135-145) Potassium Level 3.1 mEQ/L (3.4-4.9) L Chloride Level 101 mEQ/L (98-107) Carbon Dioxide Level 25 mEQ/L (20-30) Anion Gap 17 (5-15) H Blood Urea Nitrogen 37 mg/dL (7-23) H Creatinine 5.2 mg/dL (0.7-1.2) H Estimat Glomerular Filtration Rate 11.0 mL/min (>60) Glucose Level 134 mg/dL (74-106) H Calcium Level 9.1 mg/dL (8.6-10.2) Phenytoin (Dilantin) Level 4.9 ug/mL (10-20) L Valproic Acid (Depakene) Level 6 ug/mL (50-100) L Microbiology Date/Time Source Procedure Growth Status 09/07/16 22:00 Sputum Induced Gram Stain - Final Complete 09/07/16 22:00 Sputum Induced Sputum Culture - Final NORMAL UPPER RESPIRATORY KAYLI PRESENT Complete 09/07/16 18:40 Urine,Clean Catch Urine Culture - Final NO GROWTH AFTER 48 HOURS Complete HUSSEIN CAGE Sep 10, 2016 15:45
[2016-09-10] MEDS ORDERED: Lidocaine 1% MPF 10mg/ml 5ml INJ ONE (16:00)
--- NOTE | 2016-09-10 16:27 | Diagnostic Imaging Report ---
Indication: Patient requires central venous access. Findings: After the indications, procedure, risks, complications, and alternatives of the procedure were explained, written informed consent was obtained. The right groin was prepped with alcohol. All elements of maximal sterile barrier technique were followed including usage of a cap, mask, sterile gown, sterile gloves, hand hygiene and a large sterile sheet. 1% lidocaine was used to anesthetize the skin. Sonographic evaluation of the right groinwas performed demonstrating a patent and compressible vein. Access was obtained under real-time ultrasound guidance using an 18 gauge needle and a digital image was saved in archive. An 035 wire was then advanced into the vein. Needle exchanged or a dilator. A temporary hemodialysis catheter was then advanced over the wire. Wire was removed. Catheter was secured to the skin using 2-0 Prolene suture. Both ports aspirate and flush easily. The procedure was performed at the bedside. Final position of the catheter shows is within the lower IVC. Impression: Successful placement of right femoral venous catheter.
[2016-09-10] MEDS: Phenytoin 200 MG in NS 55 ML IVPB SCH ×2 (16:39→23:47)
--- NOTE | 2016-09-10 19:46 | Progress Note ---
DATE: 09/10/2016 PULMONARY CRITICAL CARE PROGRESS NOTE SUBJECTIVE: The patient was seen today for pulmonary follow up. He remains unresponsive to verbal stimuli. He is on a Versed drip and is not responsive. He is not having seizure activity. His spontaneous respiration is better today with tidal volume under 200 mL, still inadequate for weaning. OBJECTIVE: CHEST: Clear. CARDIAC: Rhythm is regular. He does not require vasopressors. LABORATORY STUDIES: Reviewed. PLAN: Current therapy will continue. He cannot be weaned from the ventilator at this time. The case was discussed with Dr. Delatorre and Dr. Vail. Jad Merino M.D. DR: PALAK JOB#: [id number] CC:
--- NOTE | 2016-09-10 20:46 | Electroencephalogram ---
DATE OF PROCEDURE: 09/10/2016 ELECTROENCEPHALOGRAPHY REPORT REQUESTING PHYSICIAN: Harrison Delatorre M.D. HISTORY: This is a 71 years old man with severe anoxic encephalopathy presenting with intermittent generalized twitching. Currently, the patient is started on Versed IV drip in addition to Dilantin and Depakote. EEG was requested to monitor effectiveness of treatment. During recording, the patient remained unresponsive. Throughout the recording, background activities consisted for low medium voltage, mixture of 4 to 6 cycles per second with intermittent generalized burst suppression pattern and intermittent bilateral frontal central temporal sharp wave/spike transients somewhat more prominent on the left. No associated movement symptoms noted. IMPRESSION: Markedly abnormal EEG with significant diffuse slowing, intermittent burst suppression pattern and frequent periodic bilateral left more than right frontal central temporal epileptiform discharges. COMMENT: Above abnormality indicate recurrent compatible with global cerebral dysfunction with ongoing generalized epileptiform activities, somewhat slightly more on the left. Underlying diffuse structural lesion with predominance on the left should be considered. Current study was compared with the previous EEG obtained two days ago. This represent slight improvement with less frequency in the left prominent epileptiform activities. Star Bautista M.D. DR: MARCO A JOB#: [id number] CC:
[2016-09-11] VITALS (28 sets, daily range): BP systolic 100–171; BP diastolic 36–103
[2016-09-11] MEDS: MIDAZOLAM IV SCH ×2 (00:17→11:11)
[2016-09-11] MEDS: D5W IV SCH ×3 (00:17→22:56)
[2016-09-11] MEDS: Piperacillin/Tazobactam 2.25 GM in D5W 55 ML IVPB SCH ×3 (05:55→21:07)
[2016-09-11] MEDS: NovoLOG Insulin Flexpen SUBQ SCH ×4 (05:55→23:54)
[2016-09-11] MEDS ORDERED: Heparin Sod 1000 units/ml 10ml IV PRN (06:00)
[2016-09-11] MEDS: Phenytoin 200 MG in NS 55 ML IVPB SCH ×3 (08:21→23:37)
[2016-09-11] MEDS: Valproate Sodium INJ 1,000 MG in D5W 55 ML IV SCH ×2 (08:21→16:16)
[2016-09-11] MEDS: Dyna-Hex 2% Top Sol 8oz TOPIC SCH (08:21)
[2016-09-11] MEDS: Minoxidil 2.5mg tab ORAL SCH ×2 (08:22→18:02)
[2016-09-11] MEDS: Heparin 5000 units/ml inj SUBQ SCH ×2 (08:24→20:37)
--- NOTE | 2016-09-11 11:46 | Infectious Diseases Prog Note ---
Assessment/Plan Assessment/Plan A; Aspiration pneumonia COPD s/p cardiac arrest Anoxic encephalopathy ESRD on HD Respiratory failure P; continue Zosyn Discontinue Vancomycin Subjective ROS Limited/Unobtainable: Yes Allergies: Coded Allergies: NIACIN (Verified Allergy, Unknown, ITCHING, 01/30/12) Objective Vital Signs Last 24 Hour Vital Signs Date Time Temp Pulse Resp B/P Pulse Ox O2 Delivery O2 Flow Rate FiO2 09/11/16 11:12 87 20 40 09/11/16 11:11 21 09/11/16 11:00 88 20 141/43 Mechanical Ventilator 40 09/11/16 10:00 72 20 122/38 Mechanical Ventilator 40 09/11/16 10:00 18 09/11/16 09:20 79 15 40 09/11/16 09:10 Mechanical Ventilator 40 09/11/16 09:00 18 09/11/16 09:00 79 18 136/43 Mechanical Ventilator 40 09/11/16 08:30 81 16 161/54 Mechanical Ventilator 40 09/11/16 08:22 154/51 09/11/16 08:21 80 154/51 09/11/16 08:00 98.2 79 19 154/51 Mechanical Ventilator 40 09/11/16 08:00 79 09/11/16 08:00 19 09/11/16 08:00 40 09/11/16 07:00 17 09/11/16 07:00 87 17 40 09/11/16 07:00 79 18 152/46 Mechanical Ventilator 40 09/11/16 06:00 80 17 126/37 Mechanical Ventilator 40 09/11/16 06:00 16 09/11/16 06:00 17 09/11/16 05:12 77 21 40 09/11/16 05:00 77 17 146/47 Mechanical Ventilator 40 09/11/16 05:00 17 09/11/16 05:00 17 09/11/16 04:00 40 09/11/16 04:00 99.4 82 20 156/47 Mechanical Ventilator 40 09/11/16 04:00 20 09/11/16 04:00 17 09/11/16 04:00 82 09/11/16 03:37 75 16 40 09/11/16 03:00 16 09/11/16 03:00 75 16 110/38 Mechanical Ventilator 40 09/11/16 02:30 75 16 110/38 Mechanical Ventilator 40 09/11/16 02:00 15 09/11/16 02:00 76 16 117/45 Mechanical Ventilator 40 09/11/16 01:30 78 16 100/37 Mechanical Ventilator 40 09/11/16 01:07 77 18 40 09/11/16 01:00 82 17 105/36 Mechanical Ventilator 40 09/11/16 01:00 16 09/11/16 00:30 82 17 128/42 Mechanical Ventilator 40 09/11/16 00:17 16 09/11/16 00:16 17 09/11/16 00:00 18 09/11/16 00:00 81 17 128/42 Mechanical Ventilator 40 09/11/16 00:00 82 09/11/16 00:00 40 09/10/16 23:30 99.0 78 17 99/35 Mechanical Ventilator 40 09/10/16 23:18 84 18 40 09/10/16 23:00 17 09/10/16 23:00 82 15 102/35 99 Mechanical Ventilator 40 09/10/16 22:30 86 17 127/40 100 Mechanical Ventilator 40 09/10/16 22:00 85 16 132/44 99 Mechanical Ventilator 40 09/10/16 22:00 17 09/10/16 21:30 82 16 118/39 99 Mechanical Ventilator 40 09/10/16 21:15 80 17 40 09/10/16 21:00 81 15 126/40 99 Mechanical Ventilator 40 09/10/16 21:00 17 09/10/16 20:30 80 16 116/40 100 Mechanical Ventilator 40 09/10/16 20:00 79 09/10/16 20:00 79 19 133/48 100 Mechanical Ventilator 40 09/10/16 20:00 19 09/10/16 19:30 74 16 135/47 99 Mechanical Ventilator 40 09/10/16 19:13 71 12 40 09/10/16 19:12 72 19 50 09/10/16 19:00 98.3 72 16 133/46 100 Mechanical Ventilator 40 09/10/16 19:00 16 09/10/16 19:00 40 09/10/16 18:08 19 09/10/16 18:00 72 22 133/48 100 Mechanical Ventilator 50 09/10/16 17:30 77 20 125/46 100 Mechanical Ventilator 50 09/10/16 17:13 140/52 09/10/16 17:07 74 19 121/47 100 Mechanical Ventilator 50 09/10/16 17:06 73 19 50 09/10/16 17:00 22 09/10/16 16:30 75 19 120/40 100 Mechanical Ventilator 50 09/10/16 16:00 98.4 78 19 145/52 100 Mechanical Ventilator 50 09/10/16 16:00 75 09/10/16 16:00 22 09/10/16 16:00 50 09/10/16 15:40 20 09/10/16 15:30 75 19 166/59 100 Mechanical Ventilator 50 09/10/16 15:00 18 09/10/16 15:00 87 20 156/49 100 Mechanical Ventilator 50 09/10/16 14:46 76 17 50 09/10/16 14:30 85 25 148/52 100 Mechanical Ventilator 50 09/10/16 14:00 86 19 146/49 100 Mechanical Ventilator 50 09/10/16 14:00 18 09/10/16 13:30 87 19 146/43 100 Mechanical Ventilator 50 09/10/16 13:05 86 16 50 09/10/16 13:00 86 18 136/49 100 Mechanical Ventilator 50 09/10/16 13:00 18 09/10/16 12:30 89 19 131/45 100 Mechanical Ventilator 50 09/10/16 12:00 50 09/10/16 12:00 20 09/10/16 12:00 98.6 86 21 124/43 100 Mechanical Ventilator 50 09/10/16 12:00 85 Height (Feet): 5 Height (Inches): 6.00 Weight (Pounds): 176 HEENT: other - orally intubated Respiratory/Chest: lungs clear, other - on ventilator Cardiovascular: normal rate, other - right Permacath Abdomen: soft, non tender Extremities: other - edema of hands Neurologic/Psychiatric: other - moves extremities Laboratory Tests Test 09/11/16 04:00 Phenytoin (Dilantin) Level 4.9 ug/mL (10-20) L Valproic Acid (Depakene) Level 32 ug/mL (50-100) L Current Medications Medications (Trade) Dose Ordered Sig/Mark Route PRN Reason Start Time Stop Time Status Last Admin Dose Admin Acetaminophen (Tylenol) 650 mg Q4H PRN ORAL Mild Pain (Pain Scale 1-3) 09/06/16 23:00 10/06/16 22:59 09/09/16 00:23 Amlodipine Besylate (Norvasc) 10 mg DAILY ORAL 09/07/16 09:00 10/07/16 08:59 09/11/16 08:21 Chlorhexidine Gluconate 1 applic 1 applic DAILY TOPIC 09/10/16 03:30 10/10/16 03:29 09/11/16 08:21 Dextrose (Dextrose 50%) STAT PRN IV Hypoglycemia 09/06/16 23:00 10/06/16 22:59 Heparin Sodium (Porcine) (Heparin 5000 units/ml) 5,000 units EVERY 12 HOURS SUBQ 09/08/16 21:00 10/08/16 20:59 09/11/16 08:24 Heparin Sodium (Porcine) (Heparin Sod 1000 units/ml 10ml) 500 unit ONCE PRN IV for HD 09/11/16 06:00 09/11/16 23:59 Insulin Aspart (NovoLOG) EVERY 6 HOURS SUBQ 09/07/16 18:00 10/07/16 17:59 09/10/16 23:48 Lorazepam (Ativan 2mg/ml 1ml) 2 mg Q2H PRN IV For Anxiety 09/07/16 11:00 09/14/16 10:59 09/09/16 11:18 Lorazepam 1 mg 1 mg Q1HR PRN IV For Seizure Activity 09/08/16 22:30 09/15/16 22:29 09/09/16 05:59 Midazolam HCl 50 mg/Dextrose 100 ml @ 0 mls/hr Q24H IV 09/09/16 15:00 10/09/16 14:59 09/11/16 11:11 Minoxidil (Loniten) 7.5 mg BID ORAL 09/10/16 18:00 10/10/16 17:59 09/11/16 08:22 Phenytoin 200 mg/ Sodium Chloride 59 ml @ 114 mls/hr [id number] PHENYTOIN IVPB 09/10/16 16:00 10/10/16 15:59 09/11/16 08:21 Piperacillin Sod/ Tazobactam Sod/ Dextrose (Zosyn/D5W) 55 ml @ 110 mls/hr Q8HR IVPB 09/09/16 22:00 09/16/16 21:59 09/11/16 05:55 Polyethylene Glycol (Miralax) 17 gm DAILYPRN PRN ORAL Constipation 09/06/16 23:00 10/06/16 22:59 Ranitidine HCl (Zantac) 150 mg BEDTIME ORAL 09/08/16 21:00 10/08/16 20:59 09/10/16 20:59 Sodium Chloride (Sodium Chloride 1000ml bag) 1,000 ml @ 500 mls/hr Q2H PRN IVLG sbp<90 during hd 09/11/16 06:00 09/11/16 23:59 Valproate Sodium 1000 mg/Dextrose 65 ml @ 32.5 mls/hr Q12HR IV 09/10/16 12:30 10/10/16 12:29 09/11/16 08:21 Vancomycin HCl (Vanco rx to dose) 1 ea DAILY PRN MISC per rx protocol 09/07/16 12:00 10/07/16 11:59 ROZINA BREAUX Sep 11, 2016 11:46
--- NOTE | 2016-09-11 12:39 | Nephrology Progress Note ---
Assessment/Plan Problem List: (1) ESRD (end stage renal disease) (2) Anoxic encephalopathy syndrome (3) Respiratory failure with hypoxia (4) CHF (congestive heart failure) Plan HD as tolerated Vent support Repeat EEG on Versed Discussed with family follow labs start TF Subjective Subjective all noted remains intubated Objective Objective Last 24 Hour Vital Signs Date Time Temp Pulse Resp B/P Pulse Ox O2 Delivery O2 Flow Rate FiO2 09/11/16 12:00 40 09/11/16 12:00 87 09/11/16 12:00 97.8 87 21 125/45 Mechanical Ventilator 40 09/11/16 12:00 20 09/11/16 11:12 87 20 40 09/11/16 11:11 21 09/11/16 11:00 88 20 141/43 Mechanical Ventilator 40 09/11/16 10:00 72 20 122/38 Mechanical Ventilator 40 09/11/16 10:00 18 09/11/16 09:20 79 15 40 09/11/16 09:10 Mechanical Ventilator 40 09/11/16 09:00 18 09/11/16 09:00 79 18 136/43 Mechanical Ventilator 40 09/11/16 08:30 81 16 161/54 Mechanical Ventilator 40 09/11/16 08:22 154/51 09/11/16 08:21 80 154/51 09/11/16 08:00 98.2 79 19 154/51 Mechanical Ventilator 40 09/11/16 08:00 79 09/11/16 08:00 19 09/11/16 08:00 40 09/11/16 07:00 17 09/11/16 07:00 87 17 40 09/11/16 07:00 79 18 152/46 Mechanical Ventilator 40 09/11/16 06:00 80 17 126/37 Mechanical Ventilator 40 09/11/16 06:00 16 09/11/16 06:00 17 09/11/16 05:12 77 21 40 09/11/16 05:00 77 17 146/47 Mechanical Ventilator 40 09/11/16 05:00 17 09/11/16 05:00 17 09/11/16 04:00 40 09/11/16 04:00 99.4 82 20 156/47 Mechanical Ventilator 40 09/11/16 04:00 20 09/11/16 04:00 17 09/11/16 04:00 82 09/11/16 03:37 75 16 40 09/11/16 03:00 16 09/11/16 03:00 75 16 110/38 Mechanical Ventilator 40 09/11/16 02:30 75 16 110/38 Mechanical Ventilator 40 09/11/16 02:00 15 09/11/16 02:00 76 16 117/45 Mechanical Ventilator 40 09/11/16 01:30 78 16 100/37 Mechanical Ventilator 40 09/11/16 01:07 77 18 40 09/11/16 01:00 82 17 105/36 Mechanical Ventilator 40 09/11/16 01:00 16 09/11/16 00:30 82 17 128/42 Mechanical Ventilator 40 09/11/16 00:17 16 09/11/16 00:16 17 09/11/16 00:00 18 09/11/16 00:00 81 17 128/42 Mechanical Ventilator 40 09/11/16 00:00 82 09/11/16 00:00 40 09/10/16 23:30 99.0 78 17 99/35 Mechanical Ventilator 40 09/10/16 23:18 84 18 40 09/10/16 23:00 17 09/10/16 23:00 82 15 102/35 99 Mechanical Ventilator 40 09/10/16 22:30 86 17 127/40 100 Mechanical Ventilator 40 09/10/16 22:00 85 16 132/44 99 Mechanical Ventilator 40 09/10/16 22:00 17 09/10/16 21:30 82 16 118/39 99 Mechanical Ventilator 40 09/10/16 21:15 80 17 40 09/10/16 21:00 81 15 126/40 99 Mechanical Ventilator 40 09/10/16 21:00 17 09/10/16 20:30 80 16 116/40 100 Mechanical Ventilator 40 09/10/16 20:00 79 09/10/16 20:00 79 19 133/48 100 Mechanical Ventilator 40 09/10/16 20:00 19 09/10/16 19:30 74 16 135/47 99 Mechanical Ventilator 40 09/10/16 19:13 71 12 40 09/10/16 19:12 72 19 50 09/10/16 19:00 98.3 72 16 133/46 100 Mechanical Ventilator 40 09/10/16 19:00 16 09/10/16 19:00 40 09/10/16 18:08 19 09/10/16 18:00 72 22 133/48 100 Mechanical Ventilator 50 09/10/16 17:30 77 20 125/46 100 Mechanical Ventilator 50 09/10/16 17:13 140/52 09/10/16 17:07 74 19 121/47 100 Mechanical Ventilator 50 09/10/16 17:06 73 19 50 17 17:00 22 09/10/16 16:30 75 19 120/40 100 Mechanical Ventilator 50 09/10/16 16:00 98.4 78 19 145/52 100 Mechanical Ventilator 50 09/10/16 16:00 75 09/10/16 16:00 22 09/10/16 16:00 50 09/10/16 15:40 20 09/10/16 15:30 75 19 166/59 100 Mechanical Ventilator 50 09/10/16 15:00 18 09/10/16 15:00 87 20 156/49 100 Mechanical Ventilator 50 09/10/16 14:46 76 17 50 09/10/16 14:30 85 25 148/52 100 Mechanical Ventilator 50 09/10/16 14:00 86 19 146/49 100 Mechanical Ventilator 50 09/10/16 14:00 18 09/10/16 13:30 87 19 146/43 100 Mechanical Ventilator 50 09/10/16 13:05 86 16 50 09/10/16 13:00 86 18 136/49 100 Mechanical Ventilator 50 09/10/16 13:00 18 Intake and Output 09/10/16 09/11/16 19:00 07:00 Intake Total 334 ml 354 ml Output Total 0 ml 10 ml Balance 334 ml 344 ml Intake Oral 0 ml 0 ml IV Total 334 ml 354 ml Output Urine Total 0 ml 10 ml # Voids 1 1 # Bowel Movements 1 Laboratory Tests 09/11/16 04:00: Phenytoin (Dilantin) Level 4.9L, Valproic Acid (Depakene) Level 32L Height (Feet): 5 Height (Inches): 6.00 Weight (Pounds): 176 Cardiovascular: normal rate Respiratory/Chest: lungs clear Extremities: trace edema CANDICE BREAUX Sep 11, 2016 12:39
--- NOTE | 2016-09-11 14:30 | Neurology Progress Note ---
Interim History Interim History ROS Limited/Unobtainable: Yes Complaints: coma Events: sedated with versed --no twiching noted Objective Physical Exam Last Vital Signs Date Time Temp Pulse Resp B/P Pulse Ox O2 Delivery O2 Flow Rate FiO2 09/11/16 14:00 84 21 150/47 100 Mechanical Ventilator 40 09/11/16 12:00 97.8 09/09/16 16:31 4.0 Laboratory Tests Test 09/11/16 04:00 Phenytoin (Dilantin) Level 4.9 ug/mL (10-20) L Valproic Acid (Depakene) Level 32 ug/mL (50-100) L General: no acute distress, other - intubated with pain noted again generalised twitching Head: atraumatic Neck: other - rigid Neurologic Exam Mental Status: other - comatose Speech: other Language: other Cranial Nerve II: no papilledema Cranial Nerves III, IV, : other - p 2mm sluggish aom-minor on doll,s Cranial Nerve V: other - +corneal Cranial Nerve VII: no facial asymmetry Cranial Nerve VIII: other Cranial Nerve IX: other - poor gag on suction Cranial Nerve XI: other Cranial Nerve XII: tongue midline Motor System: other - flaccid with irregular abdomen/BLE jercs Coordination: other Deep Tendon Reflexes: 0 ankle (L), 0 ankle (R), 0 bicep (L), 0 bicep (R), 0 brachioradialis (L), 0 brachioradialis (R), 0 knee (L), 0 knee (R), 0 tricep (L) , 0 tricep (R) Reflexes: mute plantar (L), mute plantar (R) Impression/Recommendations Problems: (1) 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 titrate 4mg q 1nr -will repeat EEG < Video/eeg not awailable > d/w family d/w staff MINERVA FORMAN Sep 11, 2016 14:30
[2016-09-11 14:57] LABS: BASOPHILS % (AUTO) 1.1 % (0.0-2.0); EOSINOPHILS % (AUTO) 3.6 % (0.0-3.0); LYMPHOCYTES % (AUTO) 9.7 % (20.0-45.0); MEAN CORPUSCULAR HEMOGLOBIN 28.3 PG (27.0-31.0); MEAN CORPUSCULAR HGB CONC 30.1 G/DL (32.0-36.0); MEAN CORPUSCULAR VOLUME 94 FL (80-99); MEAN PLATELET VOLUME 6.2 FL (6.5-10.1); MONOCYTES % (AUTO) 9.3 % (1.0-10.0); NEUTROPHILS % (AUTO) 76.3 % (45.0-75.0); PLATELET COUNT 200 K/UL (150-450); RED BLOOD COUNT 4.23 M/UL (4.70-6.10); RED CELL DISTRIBUTION WIDTH 16.5 % (11.6-14.8); WHITE BLOOD COUNT 8.7 K/UL (4.8-10.8)
[2016-09-11 15:16] LABS: CALCIUM 9.1 mg/dL (8.6-10.2); CREATININE 3.9 mg/dL (0.7-1.2); GLOMERULAR FILTRATION RATE 15.4 mL/min (>60); PHOSPHORUS 4.8 mg/dL (2.5-4.8); POTASSIUM 3.8 mEQ/L (3.4-4.9)
[2016-09-11] MEDS: Phenytoin 500 MG in NS 110 ML IVPB SCH (16:16)
[2016-09-11 16:58] LABS: ABG BASE EXCESS 0.3; ABG PCO2 45.7 mmHg (35.0-45.0)
[2016-09-11 16:59] LABS: ABG ALLEN TEST POSITIVE
--- NOTE | 2016-09-11 17:34 | Critical Care Progress Note ---
Assessment/Plan Assessment/Plan 1. Status post cardiac arrest. 2. Renal failure with hyperkalemia. 3. Respiratory failure. 4. Anoxic encephalopathy. 5. Status epilepticus 6. Coronary artery disease. 7. History of cardiomyopathy. 8. Diabetes. 9. Hypertension. off Versed drip no ictal activity opens eyes slightly disc w RN, family at bedside, Dr Vail prognosis guarded ABG ok; spont TV better cannot wean yet with poor MS Critical Care - Subjective ROS Limited/Unobtainable: Yes Condition: critical EKG Rhythm: Sinus Rhythm I&O: Intake and Output 09/10/16 09/11/16 19:00 07:00 Intake Total 334 ml 354 ml Output Total 0 ml 10 ml Balance 334 ml 344 ml Intake Oral 0 ml 0 ml IV Total 334 ml 354 ml Output Urine Total 0 ml 10 ml # Voids 1 1 # Bowel Movements 1 Critical Care - Objective ET-Tube: 8.0 ET Position: 24 Last 24 Hour Vital Signs Date Time Temp Pulse Resp B/P Pulse Ox O2 Delivery O2 Flow Rate FiO2 09/11/16 17:00 83 21 158/50 100 Mechanical Ventilator 30 09/11/16 17:00 84 18 30 09/11/16 16:00 98.1 87 23 161/47 100 Mechanical Ventilator 40 09/11/16 16:00 40 09/11/16 16:00 80 09/11/16 15:02 87 20 40 09/11/16 15:00 89 20 159/56 100 Mechanical Ventilator 40 09/11/16 14:00 84 21 150/47 100 Mechanical Ventilator 40 09/11/16 14:00 20 09/11/16 13:00 83 20 151/49 100 Mechanical Ventilator 40 09/11/16 13:00 19 09/11/16 12:48 84 17 40 09/11/16 12:15 Mechanical Ventilator 40 09/11/16 12:00 40 09/11/16 12:00 87 09/11/16 12:00 97.8 87 21 125/45 Mechanical Ventilator 40 09/11/16 12:00 20 09/11/16 11:12 87 20 40 09/11/16 11:11 21 09/11/16 11:00 88 20 141/43 Mechanical Ventilator 40 09/11/16 10:00 72 20 122/38 Mechanical Ventilator 40 09/11/16 10:00 18 09/11/16 09:20 79 15 40 6/8/17 09:10 Mechanical Ventilator 40 09/11/16 09:00 18 09/11/16 09:00 79 18 136/43 Mechanical Ventilator 40 09/11/16 08:30 81 16 161/54 Mechanical Ventilator 40 09/11/16 08:22 154/51 09/11/16 08:21 80 154/51 09/11/16 08:00 98.2 79 19 154/51 Mechanical Ventilator 40 09/11/16 08:00 79 09/11/16 08:00 19 09/11/16 08:00 40 09/11/16 07:00 17 09/11/16 07:00 87 17 40 09/11/16 07:00 79 18 152/46 Mechanical Ventilator 40 09/11/16 06:00 80 17 126/37 Mechanical Ventilator 40 09/11/16 06:00 16 09/11/16 06:00 17 09/11/16 05:12 77 21 40 09/11/16 05:00 77 17 146/47 Mechanical Ventilator 40 09/11/16 05:00 17 09/11/16 05:00 17 09/11/16 04:00 40 09/11/16 04:00 99.4 82 20 156/47 Mechanical Ventilator 40 09/11/16 04:00 20 09/11/16 04:00 17 09/11/16 04:00 82 09/11/16 03:37 75 16 40 09/11/16 03:00 09/11/16 03:00 75 16 110/38 Mechanical Ventilator 40 09/11/16 02:30 75 16 110/38 Mechanical Ventilator 40 09/11/16 02:00 09/11/16 02:00 76 16 117/45 Mechanical Ventilator 40 09/11/16 01:30 78 16 100/37 Mechanical Ventilator 40 09/11/16 01:07 77 18 40 09/11/16 01:00 82 17 105/36 Mechanical Ventilator 40 09/11/16 01:00 16 09/11/16 00:30 82 17 128/42 Mechanical Ventilator 40 09/11/16 00:17 16 09/11/16 00:16 17 09/11/16 00:00 18 09/11/16 00:00 81 17 128/42 Mechanical Ventilator 40 09/11/16 00:00 82 09/11/16 00:00 40 09/10/16 23:30 99.0 78 17 99/35 Mechanical Ventilator 40 09/10/16 23:18 84 18 40 09/10/16 23:00 17 09/10/16 23:00 82 15 102/35 99 Mechanical Ventilator 40 09/10/16 22:30 86 17 127/40 100 Mechanical Ventilator 40 09/10/16 22:00 85 16 132/44 99 Mechanical Ventilator 40 09/10/16 22:00 17 09/10/16 21:30 82 16 118/39 99 Mechanical Ventilator 40 09/10/16 21:15 80 17 40 09/10/16 21:00 81 15 126/40 99 Mechanical Ventilator 40 09/10/16 21:00 17 09/10/16 20:30 80 16 116/40 100 Mechanical Ventilator 40 09/10/16 20:00 79 09/10/16 20:00 79 19 133/48 100 Mechanical Ventilator 40 09/10/16 20:00 19 09/10/16 19:30 74 16 135/47 99 Mechanical Ventilator 40 09/10/16 19:13 71 12 40 09/10/16 19:12 72 19 50 09/10/16 19:00 98.3 72 16 133/46 100 Mechanical Ventilator 40 09/10/16 19:00 16 09/10/16 19:00 40 09/10/16 18:08 19 09/10/16 18:00 72 22 133/48 100 Mechanical Ventilator 50 Status: obtunded Condition: critical Lungs: clear Heart: normal rate Objective: seizures vs myoclonus Accucheck: CHLOE ESQUIVEL Sep 11, 2016 17:34
--- NOTE | 2016-09-11 19:08 | Internal Med Progress Note ---
Subjective Date of Service: Sep 11, 2016 Physician Name Filiberto Clancy Attending Physician Harrison Delatorre Current Medications Medications (Trade) Dose Ordered Sig/Mark Route PRN Reason Start Time Stop Time Status Last Admin Dose Admin Acetaminophen (Tylenol) 650 mg Q4H PRN ORAL Mild Pain (Pain Scale 1-3) 09/06/16 23:00 10/06/16 22:59 09/09/16 00:23 Amlodipine Besylate (Norvasc) 10 mg DAILY ORAL 09/07/16 09:00 10/07/16 08:59 09/11/16 08:21 Chlorhexidine Gluconate 1 applic 1 applic DAILY TOPIC 09/10/16 03:30 10/10/16 03:29 09/11/16 08:21 Dextrose (Dextrose 50%) STAT PRN IV Hypoglycemia 09/06/16 23:00 10/06/16 22:59 Heparin Sodium (Porcine) (Heparin 5000 units/ml) 5,000 units EVERY 12 HOURS SUBQ 09/08/16 21:00 10/08/16 20:59 09/11/16 08:24 Heparin Sodium (Porcine) (Heparin Sod 1000 units/ml 10ml) 500 unit ONCE PRN IV for HD 09/11/16 06:00 09/11/16 23:59 Insulin Aspart (NovoLOG) EVERY 6 HOURS SUBQ 09/07/16 18:00 10/07/16 17:59 09/10/16 23:48 Lorazepam (Ativan 2mg/ml 1ml) 2 mg Q2H PRN IV For Anxiety 09/07/16 11:00 09/14/16 10:59 09/09/16 11:18 Lorazepam 1 mg 1 mg Q1HR PRN IV For Seizure Activity 09/08/16 22:30 09/15/16 22:29 09/09/16 05:59 Midazolam HCl 50 mg/Dextrose 100 ml @ 0 mls/hr Q24H IV 09/09/16 15:00 10/09/16 14:59 09/11/16 11:11 Minoxidil 7.5 mg 7.5 mg BID ORAL 09/10/16 18:00 10/10/16 17:59 09/11/16 18:02 Phenytoin 200 mg/ Sodium Chloride 59 ml @ 114 mls/hr [id number] PHENYTOIN IVPB 09/10/16 16:00 10/10/16 15:59 09/11/16 16:17 Phenytoin 500 mg/ Sodium Chloride 120 ml @ 120 mls/hr POSTHD IVPB 09/11/16 15:00 10/11/16 14:59 09/11/16 16:16 Piperacillin Sod/ Tazobactam Sod/ Dextrose (Zosyn/D5W) 55 ml @ 110 mls/hr Q8HR IVPB 09/09/16 22:00 09/16/16 21:59 09/11/16 14:40 Polyethylene Glycol (Miralax) 17 gm DAILYPRN PRN ORAL Constipation 09/06/16 23:00 10/06/16 22:59 Ranitidine HCl (Zantac) 150 mg BEDTIME ORAL 09/08/16 21:00 10/08/16 20:59 09/10/16 20:59 Sodium Chloride (Sodium Chloride 1000ml bag) 1,000 ml @ 500 mls/hr Q2H PRN IVLG sbp<90 during hd 09/11/16 06:00 09/11/16 23:59 Valproate Sodium 1500 mg/Dextrose 70 ml @ 32.5 mls/hr Q12HR IV 09/11/16 21:00 10/11/16 20:59 Valproate Sodium/ Dextrose (Depacon Inj/D5W) 65 ml @ 32.5 mls/hr POSTHD IV 09/11/16 15:00 10/11/16 14:59 09/11/16 16:16 Allergies: Coded Allergies: NIACIN (Verified Allergy, Unknown, ITCHING, 01/30/12) ROS Limited/Unobtainable: Yes Subjective 71 YO M admitted with volume overload and respiratory failure. S/P cardiopulmonary arrest. ICU. Intubated and sedated. Cover for Int Brad-Dr Vail. Objective Last Vital Signs Date Time Temp Pulse Resp B/P Pulse Ox O2 Delivery O2 Flow Rate FiO2 09/11/16 18:55 90 20 30 09/11/16 18:02 151/47 09/11/16 18:00 100 Mechanical Ventilator 09/11/16 16:00 98.1 09/09/16 16:31 4.0 Laboratory Tests Test 09/11/16 04:00 09/11/16 14:50 09/11/16 16:45 Phenytoin (Dilantin) Level 4.9 ug/mL (10-20) L Valproic Acid (Depakene) Level 32 ug/mL (50-100) L White Blood Count 8.7 K/UL (4.8-10.8) Red Blood Count 4.23 M/UL (4.70-6.10) L Hemoglobin 12.0 G/DL (14.2-18.0) L Hematocrit 39.7 % (42.0-52.0) L Mean Corpuscular Volume 94 FL (80-99) Mean Corpuscular Hemoglobin 28.3 PG (27.0-31.0) Mean Corpuscular Hemoglobin Concent 30.1 G/DL (32.0-36.0) L Red Cell Distribution Width 16.5 % (11.6-14.8) H Platelet Count 200 K/UL (150-450) Mean Platelet Volume 6.2 FL (6.5-10.1) L Neutrophils (%) (Auto) 76.3 % (45.0-75.0) H Lymphocytes (%) (Auto) 9.7 % (20.0-45.0) L Monocytes (%) (Auto) 9.3 % (1.0-10.0) Eosinophils (%) (Auto) 3.6 % (0.0-3.0) H Basophils (%) (Auto) 1.1 % (0.0-2.0) Sodium Level 144 mEQ/L (135-145) Potassium Level 3.8 mEQ/L (3.4-4.9) Chloride Level 100 mEQ/L (98-107) Carbon Dioxide Level 27 mEQ/L (20-30) Anion Gap 17 (5-15) H Blood Urea Nitrogen 25 mg/dL (7-23) H Creatinine 3.9 mg/dL (0.7-1.2) H Estimat Glomerular Filtration Rate 15.4 mL/min (>60) Glucose Level 143 mg/dL (74-106) H Calcium Level 9.1 mg/dL (8.6-10.2) Phosphorus Level 4.8 mg/dL (2.5-4.8) Arterial Blood pH 7.370 (7.350-7.450) Arterial Blood Partial Pressure CO2 45.7 mmHg (35.0-45.0) H Arterial Blood Partial Pressure O2 118.0 mmHg (75.0-100.0) H Arterial Blood HCO3 25.9 mmol/L (22.0-26.0) Arterial Blood Oxygen Saturation 97.6 % (92.0-98.0) Arterial Blood Base Excess 0.3 Chas Test Positive Intake and Output 09/10/16 09/11/16 19:00 07:00 Intake Total 334 ml 354 ml Output Total 0 ml 10 ml Balance 334 ml 344 ml Intake Oral 0 ml 0 ml IV Total 334 ml 354 ml Output Urine Total 0 ml 10 ml # Voids 1 1 # Bowel Movements 1 Objective General Appearance: WD/WN, lethargic EENT: PERRL/EOMI, normal ENT inspection, TMs normal Neck: non-tender, normal alignment, supple Cardiovascular: normal peripheral pulses, normal rate, regular rhythm, no gallop/murmur, no JVD Respiratory/Chest: Mech vent; chest wall non-tender, crackles/rales, rhonchi - bilaterally, expiratory wheezing Abdomen: normal bowel sounds, non tender, soft, no organomegaly Skin: normal pigmentation, warm/dry Assessment/Plan Problem List: (1) HTN (hypertension) Assessment & Plan: Cont amlodipine. (2) Hyperkalemia (3) Respiratory failure with hypoxia Assessment & Plan: Intubated and sedated. Cont vanco and zosyn per ID (4) ESRD (end stage renal disease) Assessment & Plan: See nephrology note. Last Hemodialysis 09/09/16 per nephrology (5) CHF (congestive heart failure) (6) Diabetes mellitus Assessment & Plan: Cont novolog sliding scale. 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 Await EEG (9) Anoxic encephalopathy syndrome Assessment & Plan: See neruo note. Status: not improved Assessment/Plan Prognosis is poor. FILIBERTO CLANCY Sep 11, 2016 19:08
--- NOTE | 2016-09-11 19:17 | Cardiology Progress Note ---
Assessment/Plan Assessment/Plan cardiopulm arrest anoxic encephalopathy esrd on hd noncompliant with dialysis htn chronic diastolic failure hx cad satus epilepticus all trop neg ekg noted telel neg reviewed 09/10/2016 on the vent dialysis as planned neuro fu bp seem elevated mildy will adjust meds porsha d/w rn d/w family Subjective ROS Limited/Unobtainable: Yes Subjective on verntnot responsive except to noxious stimuli grimaces Objective Last 24 Hour Vital Signs Date Time Temp Pulse Resp B/P Pulse Ox O2 Delivery O2 Flow Rate FiO2 09/11/16 18:55 90 20 30 09/11/16 18:02 151/47 09/11/16 18:00 97 30 150/51 100 Mechanical Ventilator 30 09/11/16 17:00 83 21 158/50 100 Mechanical Ventilator 30 09/11/16 17:00 84 18 30 09/11/16 16:00 98.1 87 23 161/47 100 Mechanical Ventilator 40 09/11/16 16:00 40 09/11/16 16:00 80 09/11/16 15:02 87 20 40 09/11/16 15:00 89 20 159/56 100 Mechanical Ventilator 40 09/11/16 14:00 84 21 150/47 100 Mechanical Ventilator 40 09/11/16 14:00 20 09/11/16 13:00 83 20 151/49 100 Mechanical Ventilator 40 09/11/16 13:00 19 09/11/16 12:48 84 17 40 09/11/16 12:15 Mechanical Ventilator 40 09/11/16 12:00 40 09/11/16 12:00 87 09/11/16 12:00 97.8 87 21 125/45 Mechanical Ventilator 40 09/11/16 12:00 20 09/11/16 11:12 87 20 40 09/11/16 11:11 21 09/11/16 11:00 88 20 141/43 Mechanical Ventilator 40 09/11/16 10:00 72 20 122/38 Mechanical Ventilator 40 09/11/16 10:00 18 09/11/16 09:20 79 15 40 09/11/16 09:10 Mechanical Ventilator 40 09/11/16 09:00 18 09/11/16 09:00 79 18 136/43 Mechanical Ventilator 40 09/11/16 08:30 81 16 161/54 Mechanical Ventilator 40 09/11/16 08:22 154/51 09/11/16 08:21 80 154/51 09/11/16 08:00 98.2 79 19 154/51 Mechanical Ventilator 40 09/11/16 08:00 79 09/11/16 08:00 19 09/11/16 08:00 40 09/11/16 07:00 17 09/11/16 07:00 87 17 40 09/11/16 07:00 79 18 152/46 Mechanical Ventilator 40 09/11/16 06:00 80 17 126/37 Mechanical Ventilator 40 09/11/16 06:00 16 09/11/16 06:00 17 09/11/16 05:12 77 21 40 09/11/16 05:00 77 17 146/47 Mechanical Ventilator 40 09/11/16 05:00 17 09/11/16 05:00 17 09/11/16 04:00 40 09/11/16 04:00 99.4 82 20 156/47 Mechanical Ventilator 40 09/11/16 04:00 20 09/11/16 04:00 17 09/11/16 04:00 82 09/11/16 03:37 75 16 40 09/11/16 03:00 16 09/11/16 03:00 75 16 110/38 Mechanical Ventilator 40 09/11/16 02:30 75 16 110/38 Mechanical Ventilator 40 09/11/16 02:00 15 09/11/16 02:00 76 16 117/45 Mechanical Ventilator 40 09/11/16 01:30 78 16 100/37 Mechanical Ventilator 40 09/11/16 01:07 77 18 40 09/11/16 01:00 82 17 105/36 Mechanical Ventilator 40 09/11/16 01:00 09/11/16 00:30 82 17 128/42 Mechanical Ventilator 40 09/11/16 00:17 16 09/11/16 00:16 17 09/11/16 00:00 18 09/11/16 00:00 81 17 128/42 Mechanical Ventilator 40 09/11/16 00:00 82 09/11/16 00:00 40 09/10/16 23:30 99.0 78 17 99/35 Mechanical Ventilator 40 09/10/16 23:18 84 18 40 09/10/16 23:00 17 09/10/16 23:00 82 15 102/35 99 Mechanical Ventilator 40 09/10/16 22:30 86 17 127/40 100 Mechanical Ventilator 40 09/10/16 22:00 85 16 132/44 99 Mechanical Ventilator 40 09/10/16 22:00 17 09/10/16 21:30 82 16 118/39 99 Mechanical Ventilator 40 09/10/16 21:15 80 17 40 09/10/16 21:00 81 15 126/40 99 Mechanical Ventilator 40 09/10/16 21:00 17 09/10/16 20:30 80 16 116/40 100 Mechanical Ventilator 40 09/10/16 20:00 79 09/10/16 20:00 79 19 133/48 100 Mechanical Ventilator 40 09/10/16 20:00 19 09/10/16 19:30 74 16 135/47 99 Mechanical Ventilator 40 General Appearance: no apparent distress, on vent Cardiovascular: normal rate, regular rhythm, systolic murmur Respiratory/Chest: lungs clear, normal breath sounds Abdomen: normal bowel sounds, non tender, soft Extremities: no swelling Intake and Output 09/10/16 09/11/16 19:00 07:00 Intake Total 334 ml 354 ml Output Total 0 ml 10 ml Balance 334 ml 344 ml Intake Oral 0 ml 0 ml IV Total 334 ml 354 ml Output Urine Total 0 ml 10 ml # Voids 1 1 # Bowel Movements 1 Laboratory Tests Test 09/11/16 04:00 09/11/16 14:50 09/11/16 16:45 Phenytoin (Dilantin) Level 4.9 ug/mL (10-20) L Valproic Acid (Depakene) Level 32 ug/mL (50-100) L White Blood Count 8.7 K/UL (4.8-10.8) Red Blood Count 4.23 M/UL (4.70-6.10) L Hemoglobin 12.0 G/DL (14.2-18.0) L Hematocrit 39.7 % (42.0-52.0) L Mean Corpuscular Volume 94 FL (80-99) Mean Corpuscular Hemoglobin 28.3 PG (27.0-31.0) Mean Corpuscular Hemoglobin Concent 30.1 G/DL (32.0-36.0) L Red Cell Distribution Width 16.5 % (11.6-14.8) H Platelet Count 200 K/UL (150-450) Mean Platelet Volume 6.2 FL (6.5-10.1) L Neutrophils (%) (Auto) 76.3 % (45.0-75.0) H Lymphocytes (%) (Auto) 9.7 % (20.0-45.0) L Monocytes (%) (Auto) 9.3 % (1.0-10.0) Eosinophils (%) (Auto) 3.6 % (0.0-3.0) H Basophils (%) (Auto) 1.1 % (0.0-2.0) Sodium Level 144 mEQ/L (135-145) Potassium Level 3.8 mEQ/L (3.4-4.9) Chloride Level 100 mEQ/L (98-107) Carbon Dioxide Level 27 mEQ/L (20-30) Anion Gap 17 (5-15) H Blood Urea Nitrogen 25 mg/dL (7-23) H Creatinine 3.9 mg/dL (0.7-1.2) H Estimat Glomerular Filtration Rate 15.4 mL/min (>60) Glucose Level 143 mg/dL (74-106) H Calcium Level 9.1 mg/dL (8.6-10.2) Phosphorus Level 4.8 mg/dL (2.5-4.8) Arterial Blood pH 7.370 (7.350-7.450) Arterial Blood Partial Pressure CO2 45.7 mmHg (35.0-45.0) H Arterial Blood Partial Pressure O2 118.0 mmHg (75.0-100.0) H Arterial Blood HCO3 25.9 mmol/L (22.0-26.0) Arterial Blood Oxygen Saturation 97.6 % (92.0-98.0) Arterial Blood Base Excess 0.3 Chas Test Positive HUSSEIN CAGE Sep 11, 2016 19:17
[2016-09-11] MEDS: VALPROATE SODIUM IV SCH (22:56)
[2016-09-12] VITALS (41 sets, daily range): BP systolic 109–176; BP diastolic 34–106
[2016-09-12] MEDS: D5W IV SCH ×4 (03:36→20:35)
[2016-09-12] MEDS: MIDAZOLAM IV SCH ×2 (03:36→14:53)
[2016-09-12] MEDS: Dyna-Hex 2% Top Sol 8oz TOPIC SCH (05:01)
[2016-09-12 05:06] LABS: BASOPHILS % (AUTO) 1.3 % (0.0-2.0); EOSINOPHILS % (AUTO) 5.5 % (0.0-3.0); LYMPHOCYTES % (AUTO) 11.4 % (20.0-45.0); MEAN CORPUSCULAR HEMOGLOBIN 29.4 PG (27.0-31.0); MEAN CORPUSCULAR HGB CONC 31.1 G/DL (32.0-36.0); MEAN CORPUSCULAR VOLUME 94 FL (80-99); MEAN PLATELET VOLUME 6.4 FL (6.5-10.1); MONOCYTES % (AUTO) 10.8 % (1.0-10.0); PLATELET COUNT 193 K/UL (150-450); RED BLOOD COUNT 3.63 M/UL (4.70-6.10); RED CELL DISTRIBUTION WIDTH 16.3 % (11.6-14.8); WHITE BLOOD COUNT 7.5 K/UL (4.8-10.8)
[2016-09-12] MEDS: Piperacillin/Tazobactam 2.25 GM in D5W 55 ML IVPB SCH ×3 (05:41→22:42)
[2016-09-12] MEDS: NovoLOG Insulin Flexpen SUBQ SCH ×3 (05:46→17:58)
[2016-09-12 07:42] LABS: ALBUMIN/GLOBULIN RATIO 0.9 (1.0-2.7); CALCIUM 9.1 mg/dL (8.6-10.2); CREATININE 5.1 mg/dL (0.7-1.2); GLOMERULAR FILTRATION RATE 11.3 mL/min (>60); POTASSIUM 3.5 mEQ/L (3.4-4.9); TOTAL PROTEIN 6.1 g/dL (6.6-8.7)
[2016-09-12] MEDS: Phenytoin 200 MG in NS 55 ML IVPB SCH ×2 (08:13→16:40)
[2016-09-12] MEDS: Minoxidil 10mg tab ORAL SCH ×2 (08:55→17:54)
[2016-09-12] MEDS: VALPROATE SODIUM IV SCH ×2 (08:56→20:35)
[2016-09-12] MEDS: Heparin 5000 units/ml inj SUBQ SCH ×2 (08:57→20:37)
[2016-09-12] MEDS ORDERED: Tubing IV Secondary IV ONE ×2 (09:55→16:45)
--- NOTE | 2016-09-12 12:03 | Infectious Diseases Prog Note ---
Assessment/Plan Assessment/Plan antibiotics : zosyn A 1. pneumonia 2. respiratory failure 3. renal failure 4. leucocytosis improving 5. s/p cardiac arrest P 1. continue zosyn 2. will follow up cultures Subjective ROS Limited/Unobtainable: Yes Allergies: Coded Allergies: NIACIN (Verified Allergy, Unknown, ITCHING, 01/30/12) Objective Vital Signs Last 24 Hour Vital Signs Date Time Temp Pulse Resp B/P Pulse Ox O2 Delivery O2 Flow Rate FiO2 09/12/16 11:00 78 21 165/59 98 Mechanical Ventilator 30 09/12/16 11:00 21 09/12/16 10:49 78 17 30 09/12/16 10:30 78 21 143/47 98 Mechanical Ventilator 30 09/12/16 10:00 21 09/12/16 10:00 78 24 174/61 99 Mechanical Ventilator 30 09/12/16 09:30 76 21 176/53 99 Mechanical Ventilator 30 09/12/16 09:05 79 15 30 09/12/16 09:00 76 21 171/51 98 Mechanical Ventilator 30 09/12/16 08:56 21 09/12/16 08:56 77 161/51 09/12/16 08:55 161/51 09/12/16 08:30 78 22 159/46 99 Mechanical Ventilator 30 09/12/16 08:13 15 09/12/16 08:00 77 09/12/16 08:00 98.0 79 22 163/45 99 Mechanical Ventilator 30 09/12/16 08:00 30 09/12/16 07:30 77 21 159/46 99 Mechanical Ventilator 30 09/12/16 07:05 76 14 30 09/12/16 07:00 15 09/12/16 07:00 76 20 150/46 98 Mechanical Ventilator 30 09/12/16 06:00 18 09/12/16 06:00 76 20 125/39 98 Mechanical Ventilator 30 09/12/16 05:00 80 17 120/43 98 Mechanical Ventilator 30 09/12/16 05:00 18 09/12/16 04:50 82 21 30 09/12/16 04:00 30 09/12/16 04:00 19 09/12/16 04:00 76 09/12/16 04:00 98.2 81 16 120/43 98 Mechanical Ventilator 30 09/12/16 03:36 20 09/12/16 03:00 17 09/12/16 03:00 79 19 125/60 99 Mechanical Ventilator 30 09/12/16 02:55 81 17 30 09/12/16 02:00 19 09/12/16 02:00 82 18 123/38 99 Mechanical Ventilator 30 09/12/16 01:02 84 19 30 09/12/16 01:00 19 09/12/16 01:00 80 19 135/106 99 Mechanical Ventilator 30 09/12/16 00:00 98.0 86 20 120/40 99 Mechanical Ventilator 30 09/12/16 00:00 18 09/12/16 00:00 30 09/12/16 00:00 83 09/11/16 23:10 87 21 30 09/11/16 23:00 19 09/11/16 23:00 86 21 167/49 99 Mechanical Ventilator 30 09/11/16 22:00 19 09/11/16 22:00 84 19 154/47 100 Mechanical Ventilator 30 09/11/16 21:11 86 18 Mechanical Ventilator 30 09/11/16 21:10 86 18 30 09/11/16 21:00 86 19 166/51 100 Mechanical Ventilator 30 09/11/16 21:00 19 09/11/16 20:30 17 09/11/16 20:00 86 09/11/16 20:00 99.0 89 23 171/103 100 Mechanical Ventilator 30 09/11/16 20:00 30 09/11/16 19:00 94 23 160/51 100 Mechanical Ventilator 30 09/11/16 18:55 90 20 30 09/11/16 18:02 151/47 09/11/16 18:00 97 30 150/51 100 Mechanical Ventilator 30 09/11/16 17:00 83 21 158/50 100 Mechanical Ventilator 30 09/11/16 17:00 84 18 30 09/11/16 16:00 98.1 87 23 161/47 100 Mechanical Ventilator 40 09/11/16 16:00 40 09/11/16 16:00 80 09/11/16 15:02 87 20 40 09/11/16 15:00 89 20 159/56 100 Mechanical Ventilator 40 09/11/16 14:00 84 21 150/47 100 Mechanical Ventilator 40 09/11/16 14:00 20 09/11/16 13:00 83 20 151/49 100 Mechanical Ventilator 40 09/11/16 13:00 19 09/11/16 12:48 84 17 40 09/11/16 12:15 Mechanical Ventilator 40 09/11/16 12:00 40 09/11/16 12:00 87 09/11/16 12:00 97.8 87 21 125/45 Mechanical Ventilator 40 09/11/16 12:00 20 Height (Feet): 5 Height (Inches): 6.00 Weight (Pounds): 175 HEENT: other - intubated Respiratory/Chest: lungs clear Cardiovascular: normal rate, regular rhythm, no gallop/murmur Abdomen: soft, non tender Extremities: no edema, other - right groin catheter Laboratory Tests Test 09/11/16 14:50 09/11/16 16:45 09/12/16 04:00 09/12/16 09:25 White Blood Count 8.7 K/UL (4.8-10.8) 7.5 K/UL (4.8-10.8) Red Blood Count 4.23 M/UL (4.70-6.10) L 3.63 M/UL (4.70-6.10) L Hemoglobin 12.0 G/DL (14.2-18.0) L 10.7 G/DL (14.2-18.0) L Hematocrit 39.7 % (42.0-52.0) L 34.3 % (42.0-52.0) L Mean Corpuscular Volume 94 FL (80-99) 94 FL (80-99) Mean Corpuscular Hemoglobin 28.3 PG (27.0-31.0) 29.4 PG (27.0-31.0) Mean Corpuscular Hemoglobin Concent 30.1 G/DL (32.0-36.0) L 31.1 G/DL (32.0-36.0) L Red Cell Distribution Width 16.5 % (11.6-14.8) H 16.3 % (11.6-14.8) H Platelet Count 200 K/UL (150-450) 193 K/UL (150-450) Mean Platelet Volume 6.2 FL (6.5-10.1) L 6.4 FL (6.5-10.1) L Neutrophils (%) (Auto) 76.3 % (45.0-75.0) H 71.0 % (45.0-75.0) Lymphocytes (%) (Auto) 9.7 % (20.0-45.0) L 11.4 % (20.0-45.0) L Monocytes (%) (Auto) 9.3 % (1.0-10.0) 10.8 % (1.0-10.0) H Eosinophils (%) (Auto) 3.6 % (0.0-3.0) H 5.5 % (0.0-3.0) H Basophils (%) (Auto) 1.1 % (0.0-2.0) 1.3 % (0.0-2.0) Sodium Level 144 mEQ/L (135-145) 144 mEQ/L (135-145) Potassium Level 3.8 mEQ/L (3.4-4.9) 3.5 mEQ/L (3.4-4.9) Chloride Level 100 mEQ/L (98-107) 100 mEQ/L (98-107) Carbon Dioxide Level 27 mEQ/L (20-30) 25 mEQ/L (20-30) Anion Gap 17 (5-15) H 19 (5-15) H Blood Urea Nitrogen 25 mg/dL (7-23) H 37 mg/dL (7-23) H Creatinine 3.9 mg/dL (0.7-1.2) H 5.1 mg/dL (0.7-1.2) H Estimat Glomerular Filtration Rate 15.4 mL/min (>60) 11.3 mL/min (>60) Glucose Level 143 mg/dL (74-106) H 193 mg/dL (74-106) H Calcium Level 9.1 mg/dL (8.6-10.2) 9.1 mg/dL (8.6-10.2) Phosphorus Level 4.8 mg/dL (2.5-4.8) Arterial Blood pH 7.370 (7.350-7.450) Arterial Blood Partial Pressure CO2 45.7 mmHg (35.0-45.0) H Arterial Blood Partial Pressure O2 118.0 mmHg (75.0-100.0) H Arterial Blood HCO3 25.9 mmol/L (22.0-26.0) Arterial Blood Oxygen Saturation 97.6 % (92.0-98.0) Arterial Blood Base Excess 0.3 Chas Test Positive Total Bilirubin 0.4 mg/dL (0.0-1.2) Aspartate Amino Transf (AST/SGOT) 21 U/L (5-40) Alanine Aminotransferase (ALT/SGPT) 12 U/L (3-41) Alkaline Phosphatase 48 U/L (40-129) Total Protein 6.1 g/dL (6.6-8.7) L Albumin 3.0 g/dL (3.5-5.2) L Globulin 3.1 g/dL Albumin/Globulin Ratio 0.9 (1.0-2.7) L Phenytoin (Dilantin) Level 7.6 ug/mL (10-20) L Valproic Acid (Depakene) Level 50 ug/mL (50-100) Levetiracetam (Keppra) Level Pending LEWIS ADAMS Sep 12, 2016 12:03
--- NOTE | 2016-09-12 12:06 | Neurology Progress Note ---
Interim History Interim History ROS Limited/Unobtainable: Yes Complaints: coma Events: sedated with versed 5mg/hr--no twiching noted Interim History tried off versed few hrs noted intermittent jerks restarted on versed Objective Physical Exam Last Vital Signs Date Time Temp Pulse Resp B/P Pulse Ox O2 Delivery O2 Flow Rate FiO2 09/12/16 11:00 78 21 165/59 98 Mechanical Ventilator 30 09/12/16 08:00 98.0 09/09/16 16:31 4.0 Laboratory Tests Test 09/11/16 14:50 09/11/16 16:45 09/12/16 04:00 09/12/16 09:25 White Blood Count 8.7 K/UL (4.8-10.8) 7.5 K/UL (4.8-10.8) Red Blood Count 4.23 M/UL (4.70-6.10) L 3.63 M/UL (4.70-6.10) L Hemoglobin 12.0 G/DL (14.2-18.0) L 10.7 G/DL (14.2-18.0) L Hematocrit 39.7 % (42.0-52.0) L 34.3 % (42.0-52.0) L Mean Corpuscular Volume 94 FL (80-99) 94 FL (80-99) Mean Corpuscular Hemoglobin 28.3 PG (27.0-31.0) 29.4 PG (27.0-31.0) Mean Corpuscular Hemoglobin Concent 30.1 G/DL (32.0-36.0) L 31.1 G/DL (32.0-36.0) L Red Cell Distribution Width 16.5 % (11.6-14.8) H 16.3 % (11.6-14.8) H Platelet Count 200 K/UL (150-450) 193 K/UL (150-450) Mean Platelet Volume 6.2 FL (6.5-10.1) L 6.4 FL (6.5-10.1) L Neutrophils (%) (Auto) 76.3 % (45.0-75.0) H 71.0 % (45.0-75.0) Lymphocytes (%) (Auto) 9.7 % (20.0-45.0) L 11.4 % (20.0-45.0) L Monocytes (%) (Auto) 9.3 % (1.0-10.0) 10.8 % (1.0-10.0) H Eosinophils (%) (Auto) 3.6 % (0.0-3.0) H 5.5 % (0.0-3.0) H Basophils (%) (Auto) 1.1 % (0.0-2.0) 1.3 % (0.0-2.0) Sodium Level 144 mEQ/L (135-145) 144 mEQ/L (135-145) Potassium Level 3.8 mEQ/L (3.4-4.9) 3.5 mEQ/L (3.4-4.9) Chloride Level 100 mEQ/L (98-107) 100 mEQ/L (98-107) Carbon Dioxide Level 27 mEQ/L (20-30) 25 mEQ/L (20-30) Anion Gap 17 (5-15) H 19 (5-15) H Blood Urea Nitrogen 25 mg/dL (7-23) H 37 mg/dL (7-23) H Creatinine 3.9 mg/dL (0.7-1.2) H 5.1 mg/dL (0.7-1.2) H Estimat Glomerular Filtration Rate 15.4 mL/min (>60) 11.3 mL/min (>60) Glucose Level 143 mg/dL (74-106) H 193 mg/dL (74-106) H Calcium Level 9.1 mg/dL (8.6-10.2) 9.1 mg/dL (8.6-10.2) Phosphorus Level 4.8 mg/dL (2.5-4.8) Arterial Blood pH 7.370 (7.350-7.450) Arterial Blood Partial Pressure CO2 45.7 mmHg (35.0-45.0) H Arterial Blood Partial Pressure O2 118.0 mmHg (75.0-100.0) H Arterial Blood HCO3 25.9 mmol/L (22.0-26.0) Arterial Blood Oxygen Saturation 97.6 % (92.0-98.0) Arterial Blood Base Excess 0.3 Chas Test Positive Total Bilirubin 0.4 mg/dL (0.0-1.2) Aspartate Amino Transf (AST/SGOT) 21 U/L (5-40) Alanine Aminotransferase (ALT/SGPT) 12 U/L (3-41) Alkaline Phosphatase 48 U/L (40-129) Total Protein 6.1 g/dL (6.6-8.7) L Albumin 3.0 g/dL (3.5-5.2) L Globulin 3.1 g/dL Albumin/Globulin Ratio 0.9 (1.0-2.7) L Phenytoin (Dilantin) Level 7.6 ug/mL (10-20) L Valproic Acid (Depakene) Level 50 ug/mL (50-100) Levetiracetam (Keppra) Level Pending General: no acute distress, other - intubated with pain noted again generalised twitching Head: atraumatic Neck: other - rigid Neurologic Exam Mental Status: other - comatose Speech: other Language: other Cranial Nerve II: no papilledema Cranial Nerves III, IV, : other - p 2mm sluggish aom-minor on doll,s Cranial Nerve V: other - +corneal Cranial Nerve VII: no facial asymmetry Cranial Nerve VIII: other Cranial Nerve IX: other - poor gag on suction Cranial Nerve XI: other Cranial Nerve XII: tongue midline Motor System: other - flaccid with irregular abdomen/BLE jercs Coordination: other Deep Tendon Reflexes: 0 ankle (L), 0 ankle (R), 0 bicep (L), 0 bicep (R), 0 brachioradialis (L), 0 brachioradialis (R), 0 knee (L), 0 knee (R), 0 tricep (L) , 0 tricep (R) Reflexes: mute plantar (L), mute plantar (R) Impression/Recommendations Problems: (1) 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 - done. Versed keep x 1-2 days then , try get off and watch for sz activity titrate 5mg q 1nr -will repeat EEG < Video/eeg not available > d/w staff MINERVA FORMAN Sep 12, 2016 12:06
--- NOTE | 2016-09-12 13:58 | Critical Care Progress Note ---
Assessment/Plan Assessment/Plan 1. Status post cardiac arrest. 2. Renal failure with hyperkalemia. 3. Respiratory failure. 4. Anoxic encephalopathy. 5. Status epilepticus 6. Coronary artery disease. 7. History of cardiomyopathy. 8. Diabetes. 9. Hypertension. back on Versed drip has spontaneous TV 250 cc disc w RN prognosis guarded cannot wean yet on Versed drip, comatose may be weanable if MS improves Critical Care - Subjective ROS Limited/Unobtainable: Yes Condition: critical I&O: Intake and Output 09/11/16 09/12/16 19:00 07:00 Intake Total 633.0 ml 914 ml Output Total 2145 ml 0 ml Balance -1512.0 ml 914 ml Free Water 50 ml IV Total 483.0 ml 344 ml Tube Feeding 110 ml 480 ml Other 40 ml 40 ml Output Urine Total 15 ml 0 ml Hemodialysis UF 2130 ml # Bowel Movements 2 3 Critical Care - Objective ET-Tube: 8.0 ET Position: 24 Last 24 Hour Vital Signs Date Time Temp Pulse Resp B/P Pulse Ox O2 Delivery O2 Flow Rate FiO2 09/12/16 13:30 84 21 168/47 98 Mechanical Ventilator 30 09/12/16 13:21 82 16 30 09/12/16 13:00 83 25 130/40 98 Mechanical Ventilator 30 09/12/16 12:30 83 24 143/49 98 Mechanical Ventilator 30 09/12/16 12:00 83 09/12/16 12:00 98.7 82 23 151/43 99 Mechanical Ventilator 30 09/12/16 12:00 30 09/12/16 11:30 79 21 156/47 98 Mechanical Ventilator 30 09/12/16 11:00 78 21 165/59 98 Mechanical Ventilator 30 09/12/16 11:00 21 09/12/16 10:49 78 17 30 09/12/16 10:30 78 21 143/47 98 Mechanical Ventilator 30 09/12/16 10:00 21 09/12/16 10:00 78 24 174/61 99 Mechanical Ventilator 30 09/12/16 09:30 76 21 176/53 99 Mechanical Ventilator 30 09/12/16 09:05 79 15 30 09/12/16 09:00 76 21 171/51 98 Mechanical Ventilator 30 09/12/16 08:56 21 09/12/16 08:56 77 161/51 09/12/16 08:55 161/51 09/12/16 08:30 78 22 159/46 99 Mechanical Ventilator 30 09/12/16 08:13 15 09/12/16 08:00 77 09/12/16 08:00 98.0 79 22 163/45 99 Mechanical Ventilator 30 09/12/16 08:00 30 09/12/16 07:30 77 21 159/46 99 Mechanical Ventilator 30 09/12/16 07:05 76 14 30 09/12/16 07:00 15 09/12/16 07:00 76 20 150/46 98 Mechanical Ventilator 30 09/12/16 06:00 18 09/12/16 06:00 76 20 125/39 98 Mechanical Ventilator 30 09/12/16 05:00 80 17 120/43 98 Mechanical Ventilator 30 09/12/16 05:00 18 09/12/16 04:50 82 21 30 09/12/16 04:00 30 09/12/16 04:00 19 09/12/16 04:00 76 09/12/16 04:00 98.2 81 16 120/43 98 Mechanical Ventilator 30 09/12/16 03:36 20 09/12/16 03:00 17 09/12/16 03:00 79 19 125/60 99 Mechanical Ventilator 30 09/12/16 02:55 81 17 30 09/12/16 02:00 19 09/12/16 02:00 82 18 123/38 99 Mechanical Ventilator 30 09/12/16 01:02 84 19 30 09/12/16 01:00 19 09/12/16 01:00 80 19 135/106 99 Mechanical Ventilator 09/12/16 00:00 98.0 86 20 120/40 99 Mechanical Ventilator 30 09/12/16 00:00 18 09/12/16 00:00 30 09/12/16 00:00 83 09/11/16 23:10 87 21 30 09/11/16 23:00 19 09/11/16 23:00 86 21 167/49 99 Mechanical Ventilator 30 09/11/16 22:00 19 09/11/16 22:00 84 19 154/47 100 Mechanical Ventilator 30 09/11/16 21:11 86 18 Mechanical Ventilator 30 09/11/16 21:10 86 18 30 09/11/16 21:00 86 19 166/51 100 Mechanical Ventilator 30 09/11/16 21:00 19 09/11/16 20:30 17 09/11/16 20:00 86 09/11/16 20:00 99.0 89 23 171/103 100 Mechanical Ventilator 30 09/11/16 20:00 30 09/11/16 19:00 94 23 160/51 100 Mechanical Ventilator 30 09/11/16 18:55 90 20 30 09/11/16 18:02 151/47 09/11/16 18:00 97 30 150/51 100 Mechanical Ventilator 30 09/11/16 17:00 83 21 158/50 100 Mechanical Ventilator 30 09/11/16 17:00 84 18 30 09/11/16 16:00 98.1 87 23 161/47 100 Mechanical Ventilator 40 09/11/16 16:00 40 09/11/16 16:00 80 09/11/16 15:02 87 20 40 09/11/16 15:00 89 20 159/56 100 Mechanical Ventilator 40 09/11/16 14:00 84 21 150/47 100 Mechanical Ventilator 40 09/11/16 14:00 20 Status: obtunded Lungs: clear Heart: normal rate Objective: seizures vs myoclonus Accucheck: CHLOE GREEN Sep 12, 2016 13:58
--- NOTE | 2016-09-12 14:09 | Nephrology Progress Note ---
Assessment/Plan Problem List: (1) ESRD (end stage renal disease) (2) Anoxic encephalopathy syndrome (3) Respiratory failure with hypoxia (4) CHF (congestive heart failure) Plan HD in AM Vent support Neurology F/U Discussed with family and [place] follow labs cont TF Subjective Subjective all noted remains intubated Objective Objective Last 24 Hour Vital Signs Date Time Temp Pulse Resp B/P Pulse Ox O2 Delivery O2 Flow Rate FiO2 09/12/16 13:30 84 21 168/47 98 Mechanical Ventilator 30 09/12/16 13:21 82 16 30 09/12/16 13:00 83 25 130/40 98 Mechanical Ventilator 30 09/12/16 12:30 83 24 143/49 98 Mechanical Ventilator 30 09/12/16 12:00 83 09/12/16 12:00 98.7 82 23 151/43 99 Mechanical Ventilator 30 09/12/16 12:00 30 09/12/16 11:30 79 21 156/47 98 Mechanical Ventilator 30 09/12/16 11:00 78 21 165/59 98 Mechanical Ventilator 30 09/12/16 11:00 21 09/12/16 10:49 78 17 30 09/12/16 10:30 78 21 143/47 98 Mechanical Ventilator 30 09/12/16 10:00 21 09/12/16 10:00 78 24 174/61 99 Mechanical Ventilator 30 09/12/16 09:30 76 21 176/53 99 Mechanical Ventilator 30 09/12/16 09:05 79 15 30 09/12/16 09:00 76 21 171/51 98 Mechanical Ventilator 30 09/12/16 08:56 21 09/12/16 08:56 77 161/51 09/12/16 08:55 161/51 09/12/16 08:30 78 22 159/46 99 Mechanical Ventilator 30 09/12/16 08:13 15 09/12/16 08:00 77 09/12/16 08:00 98.0 79 22 163/45 99 Mechanical Ventilator 30 09/12/16 08:00 30 09/12/16 07:30 77 21 159/46 99 Mechanical Ventilator 30 09/12/16 07:05 76 14 30 09/12/16 07:00 15 09/12/16 07:00 76 20 150/46 98 Mechanical Ventilator 30 09/12/16 06:00 18 09/12/16 06:00 76 20 125/39 98 Mechanical Ventilator 30 09/12/16 05:00 80 17 120/43 98 Mechanical Ventilator 30 09/12/16 05:00 18 09/12/16 04:50 82 21 30 09/12/16 04:00 30 09/12/16 04:00 19 09/12/16 04:00 76 09/12/16 04:00 98.2 81 16 120/43 98 Mechanical Ventilator 30 09/12/16 03:36 20 09/12/16 03:00 17 09/12/16 03:00 79 19 125/60 99 Mechanical Ventilator 30 09/12/16 02:55 81 17 30 09/12/16 02:00 19 09/12/16 02:00 82 18 123/38 99 Mechanical Ventilator 30 09/12/16 01:02 84 19 30 09/12/16 01:00 19 09/12/16 01:00 80 19 135/106 99 Mechanical Ventilator 30 09/12/16 00:00 98.0 86 20 120/40 99 Mechanical Ventilator 30 09/12/16 00:00 18 09/12/16 00:00 30 09/12/16 00:00 83 09/11/16 23:10 87 21 30 09/11/16 23:00 19 09/11/16 23:00 86 21 167/49 99 Mechanical Ventilator 30 09/11/16 22:00 19 09/11/16 22:00 84 19 154/47 100 Mechanical Ventilator 30 09/11/16 21:11 86 18 Mechanical Ventilator 30 09/11/16 21:10 86 18 30 09/11/16 21:00 86 19 166/51 100 Mechanical Ventilator 30 09/11/16 21:00 19 09/11/16 20:30 17 09/11/16 20:00 86 09/11/16 20:00 99.0 89 23 171/103 100 Mechanical Ventilator 30 09/11/16 20:00 30 09/11/16 19:00 94 23 160/51 100 Mechanical Ventilator 30 09/11/16 18:55 90 20 30 09/11/16 18:02 151/47 09/11/16 18:00 97 30 150/51 100 Mechanical Ventilator 30 09/11/16 17:00 83 21 158/50 100 Mechanical Ventilator 30 09/11/16 17:00 84 18 30 09/11/16 16:00 98.1 87 23 161/47 100 Mechanical Ventilator 40 09/11/16 16:00 40 09/11/16 16:00 80 09/11/16 15:02 87 20 40 09/11/16 15:00 89 20 159/56 100 Mechanical Ventilator 40 Intake and Output 09/11/16 09/12/16 19:00 07:00 Intake Total 633.0 ml 914 ml Output Total 2145 ml 0 ml Balance -1512.0 ml 914 ml Free Water 50 ml IV Total 483.0 ml 344 ml Tube Feeding 110 ml 480 ml Other 40 ml 40 ml Output Urine Total 15 ml 0 ml Hemodialysis UF 2130 ml # Bowel Movements 2 3 Laboratory Tests 09/11/16 14:50: White Blood Count 8.7, Red Blood Count 4.23L, Hemoglobin 12.0L, Hematocrit 39.7L , Mean Corpuscular Volume 94, Mean Corpuscular Hemoglobin 28.3, Mean Corpuscular Hemoglobin Concent 30.1L, Red Cell Distribution Width 16.5H, Platelet Count 200, Mean Platelet Volume 6.2L, Neutrophils (%) (Auto) 76.3H, Lymphocytes (%) (Auto) 9.7L, Monocytes (%) (Auto) 9.3, Eosinophils (%) (Auto) 3.6H, Basophils (%) (Auto) 1.1, Sodium Level 144, Potassium Level 3.8, Chloride Level 100, Carbon Dioxide Level 27, Anion Gap 17H, Blood Urea Nitrogen 25H, Creatinine 3.9H, Estimat Glomerular Filtration Rate 15.4, Glucose Level 143H, Calcium Level 9.1, Phosphorus Level 4.8 09/11/16 16:45: Arterial Blood pH 7.370, Arterial Blood Partial Pressure CO2 45.7H, Arterial Blood Partial Pressure O2 118.0H, Arterial Blood HCO3 25.9, Arterial Blood Oxygen Saturation 97.6, Arterial Blood Base Excess 0.3, Chas Test Positive 09/12/16 04:00: White Blood Count 7.5, Red Blood Count 3.63L, Hemoglobin 10.7L, Hematocrit 34.3L , Mean Corpuscular Volume 94, Mean Corpuscular Hemoglobin 29.4, Mean Corpuscular Hemoglobin Concent 31.1L, Red Cell Distribution Width 16.3H, Platelet Count 193, Mean Platelet Volume 6.4L, Neutrophils (%) (Auto) 71.0, Lymphocytes (%) (Auto) 11.4L, Monocytes (%) (Auto) 10.8H, Eosinophils (%) (Auto ) 5.5H, Basophils (%) (Auto) 1.3, Sodium Level 144, Potassium Level 3.5, Chloride Level 100, Carbon Dioxide Level 25, Anion Gap 19H, Blood Urea Nitrogen 37H, Creatinine 5.1H, Estimat Glomerular Filtration Rate 11.3, Glucose Level 193H, Calcium Level 9.1, Total Bilirubin 0.4, Aspartate Amino Transf (AST/SGOT) 21, Alanine Aminotransferase (ALT/SGPT) 12, Alkaline Phosphatase 48, Total Protein 6.1L, Albumin 3.0L, Globulin 3.1, Albumin/Globulin Ratio 0.9L, Phenytoin (Dilantin) Level 7.6L, Valproic Acid (Depakene) Level 50 09/12/16 09:25: Levetiracetam (Keppra) Level [Pending] Height (Feet): 5 Height (Inches): 6.00 Weight (Pounds): 175 Cardiovascular: normal rate Respiratory/Chest: lungs clear Extremities: trace edema CANIDCE BREAUX Sep 12, 2016 14:09
[2016-09-12] MEDS ORDERED: NS 275ml ONE (16:45)
--- NOTE | 2016-09-12 19:51 | Internal Med Progress Note ---
Subjective Date of Service: Sep 12, 2016 Physician Name Kartik Clancy Attending Physician Harrison Delatorre Current Medications Medications (Trade) Dose Ordered Sig/Mark Route PRN Reason Start Time Stop Time Status Last Admin Dose Admin Acetaminophen (Tylenol) 650 mg Q4H PRN ORAL Mild Pain (Pain Scale 1-3) 09/06/16 23:00 10/06/16 22:59 09/09/16 00:23 Amlodipine Besylate (Norvasc) 10 mg DAILY ORAL 09/07/16 09:00 10/07/16 08:59 09/12/16 08:56 Chlorhexidine Gluconate 1 applic 1 applic DAILY TOPIC 09/10/16 03:30 10/10/16 03:29 09/12/16 05:01 Dextrose (Dextrose 50%) STAT PRN IV Hypoglycemia 09/06/16 23:00 10/06/16 22:59 Heparin Sodium (Porcine) (Heparin 5000 units/ml) 5,000 units EVERY 12 HOURS SUBQ 09/08/16 21:00 10/08/16 20:59 09/12/16 08:57 Insulin Aspart (NovoLOG) EVERY 6 HOURS SUBQ 09/07/16 18:00 10/07/16 17:59 09/12/16 17:58 Lorazepam (Ativan 2mg/ml 1ml) 2 mg Q2H PRN IV For Anxiety 09/07/16 11:00 09/14/16 10:59 09/09/16 11:18 Lorazepam 1 mg 1 mg Q1HR PRN IV For Seizure Activity 09/08/16 22:30 09/15/16 22:29 09/09/16 05:59 Midazolam HCl 50 mg/Dextrose 100 ml @ 0 mls/hr Q24H IV 09/09/16 15:00 10/09/16 14:59 09/12/16 14:53 Minoxidil (Loniten) 10 mg BID ORAL 09/12/16 09:00 10/12/16 08:59 09/12/16 17:54 Phenytoin 200 mg/ Sodium Chloride 59 ml @ 114 mls/hr [id number] PHENYTOIN IVPB 09/10/16 16:00 10/10/16 15:59 09/12/16 16:40 Phenytoin 500 mg/ Sodium Chloride 120 ml @ 120 mls/hr POSTHD IVPB 09/11/16 15:00 10/11/16 14:59 09/11/16 16:16 Piperacillin Sod/ Tazobactam Sod/ Dextrose (Zosyn/D5W) 55 ml @ 110 mls/hr Q8HR IVPB 09/09/16 22:00 09/16/16 21:59 09/12/16 13:43 Polyethylene Glycol (Miralax) 17 gm DAILYPRN PRN ORAL Constipation 09/06/16 23:00 10/06/16 22:59 Ranitidine HCl (Zantac) 150 mg BEDTIME ORAL 09/08/16 21:00 10/08/16 20:59 09/11/16 20:36 Valproate Sodium 1500 mg/Dextrose 70 ml @ 32.5 mls/hr Q12HR IV 09/11/16 21:00 10/11/16 20:59 09/12/16 08:56 Valproate Sodium/ Dextrose (Depacon Inj/D5W) 65 ml @ 32.5 mls/hr POSTHD IV 09/11/16 15:00 10/11/16 14:59 09/11/16 16:16 Allergies: Coded Allergies: NIACIN (Verified Allergy, Unknown, ITCHING, 01/30/12) ROS Limited/Unobtainable: Yes Subjective 71 YO M admitted with volume overload and respiratory failure. S/P cardiopulmonary arrest. ICU. Intubated and sedated. Cover for Int Med-Dr [place]. Objective Last Vital Signs Date Time Temp Pulse Resp B/P Pulse Ox O2 Delivery O2 Flow Rate FiO2 09/12/16 19:24 83 22 30 09/12/16 18:30 156/46 99 Mechanical Ventilator 09/12/16 16:00 98.2 09/09/16 16:31 4.0 Laboratory Tests Test 09/12/16 04:00 09/12/16 09:25 White Blood Count 7.5 K/UL (4.8-10.8) Red Blood Count 3.63 M/UL (4.70-6.10) L Hemoglobin 10.7 G/DL (14.2-18.0) L Hematocrit 34.3 % (42.0-52.0) L Mean Corpuscular Volume 94 FL (80-99) Mean Corpuscular Hemoglobin 29.4 PG (27.0-31.0) Mean Corpuscular Hemoglobin Concent 31.1 G/DL (32.0-36.0) L Red Cell Distribution Width 16.3 % (11.6-14.8) H Platelet Count 193 K/UL (150-450) Mean Platelet Volume 6.4 FL (6.5-10.1) L Neutrophils (%) (Auto) 71.0 % (45.0-75.0) Lymphocytes (%) (Auto) 11.4 % (20.0-45.0) L Monocytes (%) (Auto) 10.8 % (1.0-10.0) H Eosinophils (%) (Auto) 5.5 % (0.0-3.0) H Basophils (%) (Auto) 1.3 % (0.0-2.0) Sodium Level 144 mEQ/L (135-145) Potassium Level 3.5 mEQ/L (3.4-4.9) Chloride Level 100 mEQ/L (98-107) Carbon Dioxide Level 25 mEQ/L (20-30) Anion Gap 19 (5-15) H Blood Urea Nitrogen 37 mg/dL (7-23) H Creatinine 5.1 mg/dL (0.7-1.2) H Estimat Glomerular Filtration Rate 11.3 mL/min (>60) Glucose Level 193 mg/dL (74-106) H Calcium Level 9.1 mg/dL (8.6-10.2) Total Bilirubin 0.4 mg/dL (0.0-1.2) Aspartate Amino Transf (AST/SGOT) 21 U/L (5-40) Alanine Aminotransferase (ALT/SGPT) 12 U/L (3-41) Alkaline Phosphatase 48 U/L (40-129) Total Protein 6.1 g/dL (6.6-8.7) L Albumin 3.0 g/dL (3.5-5.2) L Globulin 3.1 g/dL Albumin/Globulin Ratio 0.9 (1.0-2.7) L Phenytoin (Dilantin) Level 7.6 ug/mL (10-20) L Valproic Acid (Depakene) Level 50 ug/mL (50-100) Levetiracetam (Keppra) Level Pending Intake and Output 09/11/16 09/12/16 19:00 07:00 Intake Total 633.0 ml 914 ml Output Total 2145 ml 0 ml Balance -1512.0 ml 914 ml Free Water 50 ml IV Total 483.0 ml 344 ml Tube Feeding 110 ml 480 ml Other 40 ml 40 ml Output Urine Total 15 ml 0 ml Hemodialysis UF 2130 ml # Bowel Movements 2 3 Objective General Appearance: WD/WN, lethargic EENT: PERRL/EOMI, normal ENT inspection, TMs normal Neck: non-tender, normal alignment, supple Cardiovascular: normal peripheral pulses, normal rate, regular rhythm, no gallop/murmur, no JVD Respiratory/Chest: Mech vent; chest wall non-tender, crackles/rales, rhonchi - bilaterally, expiratory wheezing Abdomen: normal bowel sounds, non tender, soft, no organomegaly Skin: normal pigmentation, warm/dry Assessment/Plan Problem List: (1) HTN (hypertension) Assessment & Plan: Cont amlodipine. (2) Hyperkalemia (3) Respiratory failure with hypoxia Assessment & Plan: Intubated and sedated. Cont vanco and zosyn per ID (4) ESRD (end stage renal disease) Assessment & Plan: See nephrology note. Last Hemodialysis 09/09/16 per nephrology (5) CHF (congestive heart failure) (6) Diabetes mellitus Assessment & Plan: Cont novolog sliding scale. 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 Await EEG (9) Anoxic encephalopathy syndrome Assessment & Plan: See neruo note. Status: not improved Assessment/Plan Prognosis is poor. KARTIK CLANCY Sep 12, 2016 19:51
[2016-09-13] VITALS (45 sets, daily range): BP systolic 109–188; BP diastolic 34–74
[2016-09-13] MEDS: NovoLOG Insulin Flexpen SUBQ SCH ×4 (00:20→18:23)
[2016-09-13] MEDS: Phenytoin 200 MG in NS 55 ML IVPB SCH ×4 (00:22→23:53)
[2016-09-13] MEDS: Dyna-Hex 2% Top Sol 8oz TOPIC SCH (00:27)
[2016-09-13] MEDS: D5W IV SCH ×5 (01:22→22:30)
[2016-09-13] MEDS: MIDAZOLAM IV SCH ×2 (01:22→11:45)
[2016-09-13] MEDS: Piperacillin/Tazobactam 2.25 GM in D5W 55 ML IVPB SCH ×3 (05:28→23:47)
[2016-09-13 05:57] LABS: LYMPHOCYTES % (AUTO) 8.2 % (20.0-45.0); MEAN CORPUSCULAR HEMOGLOBIN 28.9 PG (27.0-31.0); MEAN CORPUSCULAR VOLUME 93 FL (80-99); MEAN PLATELET VOLUME 6.5 FL (6.5-10.1); MONOCYTES % (AUTO) 12.3 % (1.0-10.0); NEUTROPHILS % (AUTO) 69.5 % (45.0-75.0); PLATELET COUNT 209 K/UL (150-450); RED BLOOD COUNT 3.79 M/UL (4.70-6.10); RED CELL DISTRIBUTION WIDTH 16.1 % (11.6-14.8); WHITE BLOOD COUNT 6.7 K/UL (4.8-10.8)
[2016-09-13 06:14] LABS: CALCIUM 9.4 mg/dL (8.6-10.2); CREATININE 6.1 mg/dL (0.7-1.2); GLOMERULAR FILTRATION RATE 9.2 mL/min (>60); POTASSIUM 3.4 mEQ/L (3.4-4.9)
[2016-09-13] MEDS: Minoxidil 10mg tab ORAL SCH ×2 (09:08→17:57)
[2016-09-13] MEDS ORDERED: Tubing IV Secondary IV ONE (09:09)
[2016-09-13] MEDS: Heparin 5000 units/ml inj SUBQ SCH ×2 (09:09→21:17)
[2016-09-13] MEDS ORDERED: NS 275ml ONE (09:09)
[2016-09-13] MEDS: VALPROATE SODIUM IV SCH ×3 (09:09→22:30)
[2016-09-13] MEDS: LORazepam Inj 2mg/ml 1ml IV PRN (09:59)
--- NOTE | 2016-09-13 10:29 | Infectious Diseases Prog Note ---
Assessment/Plan Assessment/Plan antibiotics : zosyn A 1. pneumonia 2. respiratory failure 3. renal failure 4. leucocytosis improving 5. s/p cardiac arrest P 1. continue zosyn 2. will follow up cultures Subjective ROS Limited/Unobtainable: Yes Allergies: Coded Allergies: NIACIN (Verified Allergy, Unknown, ITCHING, 01/30/12) Objective Vital Signs Last 24 Hour Vital Signs Date Time Temp Pulse Resp B/P Pulse Ox O2 Delivery O2 Flow Rate FiO2 09/13/16 09:08 122/40 09/13/16 09:08 84 122/40 09/13/16 08:34 82 18 30 09/13/16 08:12 20 09/13/16 08:00 30 09/13/16 08:00 79 09/13/16 07:04 88 16 30 09/13/16 07:00 25 09/13/16 07:00 97 24 169/42 99 Mechanical Ventilator 30 09/13/16 06:30 94 24 159/42 99 Mechanical Ventilator 30 09/13/16 06:00 25 09/13/16 06:00 96 24 160/42 99 Mechanical Ventilator 30 09/13/16 05:30 89 24 163/42 99 Mechanical Ventilator 30 09/13/16 05:01 83 24 159/42 99 Mechanical Ventilator 30 09/13/16 05:00 83 24 140/40 99 Mechanical Ventilator 30 09/13/16 05:00 25 09/13/16 04:44 87 23 30 09/13/16 04:30 83 24 159/42 99 Mechanical Ventilator 30 09/13/16 04:00 98.6 79 24 148/45 99 Mechanical Ventilator 30 09/13/16 04:00 30 09/13/16 04:00 81 09/13/16 04:00 17 09/13/16 03:30 74 24 140/51 99 Mechanical Ventilator 30 09/13/16 03:21 77 20 30 09/13/16 03:00 17 09/13/16 03:00 77 22 133/41 99 Mechanical Ventilator 30 09/13/16 02:30 74 24 140/51 99 Mechanical Ventilator 30 09/13/16 02:00 82 22 140/48 99 Mechanical Ventilator 30 09/13/16 02:00 16 09/13/16 01:30 82 24 132/38 100 Mechanical Ventilator 30 09/13/16 01:22 74 16 30 09/13/16 01:22 15 09/13/16 01:00 76 20 109/34 99 Mechanical Ventilator 30 09/13/16 00:30 82 22 109/34 99 Mechanical Ventilator 30 09/13/16 00:00 30 09/13/16 00:00 17 09/13/16 00:00 98.6 82 22 142/51 99 Mechanical Ventilator 30 09/13/16 00:00 72 09/12/16 23:30 84 25 109/34 99 Mechanical Ventilator 30 09/12/16 23:26 80 16 30 09/12/16 23:00 82 22 140/48 99 Mechanical Ventilator 30 09/12/16 23:00 16 09/12/16 22:30 82 22 132/39 99 Mechanical Ventilator 30 09/12/16 22:00 81 22 154/42 99 Mechanical Ventilator 30 09/12/16 22:00 17 09/12/16 21:30 87 22 116/41 99 Mechanical Ventilator 30 09/12/16 21:15 79 13 30 09/12/16 21:00 17 09/12/16 21:00 89 22 110/46 99 Mechanical Ventilator 30 09/12/16 20:30 85 22 156/50 99 Mechanical Ventilator 30 09/12/16 20:00 18 09/12/16 20:00 83 22 158/50 99 Mechanical Ventilator 30 09/12/16 20:00 30 09/12/16 20:00 82 09/12/16 19:30 84 22 140/44 99 Mechanical Ventilator 30 09/12/16 19:24 83 22 30 09/12/16 19:00 85 22 164/52 99 Mechanical Ventilator 30 09/12/16 19:00 19 09/12/16 18:30 84 22 156/46 99 Mechanical Ventilator 30 09/12/16 18:00 80 22 150/46 99 Mechanical Ventilator 30 09/12/16 18:00 21 09/12/16 17:54 130/43 09/12/16 17:30 80 23 167/50 99 Mechanical Ventilator 30 09/12/16 17:00 79 23 130/43 100 Mechanical Ventilator 30 09/12/16 16:48 79 16 30 09/12/16 16:40 23 09/12/16 16:30 79 23 171/52 100 Mechanical Ventilator 30 09/12/16 16:00 21 09/12/16 16:00 79 09/12/16 16:00 98.2 77 21 168/51 100 Mechanical Ventilator 30 09/12/16 16:00 30 09/12/16 15:30 80 22 158/46 99 Mechanical Ventilator 30 09/12/16 15:05 82 19 30 09/12/16 15:00 82 21 111/36 97 Mechanical Ventilator 30 09/12/16 14:53 27 09/12/16 14:30 82 22 139/39 98 Mechanical Ventilator 30 09/12/16 14:00 85 20 165/43 98 Mechanical Ventilator 30 09/12/16 13:30 84 21 168/47 98 Mechanical Ventilator 30 09/12/16 13:21 82 16 30 09/12/16 13:00 83 25 130/40 98 Mechanical Ventilator 30 09/12/16 13:00 21 09/12/16 12:30 83 24 143/49 98 Mechanical Ventilator 30 09/12/16 12:00 83 09/12/16 12:00 25 09/12/16 12:00 98.7 82 23 151/43 99 Mechanical Ventilator 30 09/12/16 12:00 30 09/12/16 11:30 79 21 156/47 98 Mechanical Ventilator 30 09/12/16 11:00 78 21 165/59 98 Mechanical Ventilator 30 09/12/16 11:00 21 09/12/16 10:49 78 17 30 09/12/16 10:30 78 21 143/47 98 Mechanical Ventilator 30 Height (Feet): 5 Height (Inches): 6.00 Weight (Pounds): 173 HEENT: other - intubated Respiratory/Chest: lungs clear Cardiovascular: normal rate, regular rhythm, no gallop/murmur Abdomen: soft, non tender Extremities: no edema, other - right groin catheter Laboratory Tests Test 09/13/16 03:52 White Blood Count 6.7 K/UL (4.8-10.8) Red Blood Count 3.79 M/UL (4.70-6.10) L Hemoglobin 10.9 G/DL (14.2-18.0) L Hematocrit 35.3 % (42.0-52.0) L Mean Corpuscular Volume 93 FL (80-99) Mean Corpuscular Hemoglobin 28.9 PG (27.0-31.0) Mean Corpuscular Hemoglobin Concent 31.0 G/DL (32.0-36.0) L Red Cell Distribution Width 16.1 % (11.6-14.8) H Platelet Count 209 K/UL (150-450) Mean Platelet Volume 6.5 FL (6.5-10.1) Neutrophils (%) (Auto) 69.5 % (45.0-75.0) Lymphocytes (%) (Auto) 8.2 % (20.0-45.0) L Monocytes (%) (Auto) 12.3 % (1.0-10.0) H Eosinophils (%) (Auto) 8.0 % (0.0-3.0) H Basophils (%) (Auto) 2.0 % (0.0-2.0) Sodium Level 146 mEQ/L (135-145) H Potassium Level 3.4 mEQ/L (3.4-4.9) Chloride Level 100 mEQ/L (98-107) Carbon Dioxide Level 26 mEQ/L (20-30) Anion Gap 20 (5-15) H Blood Urea Nitrogen 52 mg/dL (7-23) H Creatinine 6.1 mg/dL (0.7-1.2) H Estimat Glomerular Filtration Rate 9.2 mL/min (>60) Glucose Level 193 mg/dL (74-106) H Calcium Level 9.4 mg/dL (8.6-10.2) Valproic Acid (Depakene) Level 50 ug/mL (50-100) LEWIS ADAMS Sep 13, 2016 10:29
--- NOTE | 2016-09-13 14:19 | Cardiology Progress Note ---
Assessment/Plan Assessment/Plan cardiopulm arrest anoxic encephalopathy esrd on hd noncompliant with dialysis htn chronic diastolic failure hx cad satus epilepticus all trop neg ekg noted telel neg on the vent dialysis as planned neuro fu bp seem elevated at times readjsut med d/w rn d/w family Subjective ROS Limited/Unobtainable: Yes Subjective on verntnot responsive except to noxious stimuli grimaces Objective Last 24 Hour Vital Signs Date Time Temp Pulse Resp B/P Pulse Ox O2 Delivery O2 Flow Rate FiO2 09/13/16 14:00 88 20 167/47 100 Mechanical Ventilator 30 09/13/16 14:00 21 09/13/16 13:59 20 09/13/16 13:11 84 17 30 09/13/16 13:00 19 09/13/16 12:00 98.6 83 20 141/40 99 Mechanical Ventilator 30 09/13/16 12:00 30 09/13/16 12:00 83 09/13/16 11:45 19 09/13/16 11:30 83 19 176/47 99 Mechanical Ventilator 30 09/13/16 11:00 20 09/13/16 11:00 83 21 185/40 98 Mechanical Ventilator 30 09/13/16 10:47 84 20 30 09/13/16 10:30 81 22 128/36 100 Mechanical Ventilator 30 09/13/16 10:00 81 22 168/37 99 Mechanical Ventilator 30 09/13/16 10:00 22 09/13/16 09:30 84 24 187/64 100 Mechanical Ventilator 30 09/13/16 09:09 21 09/13/16 09:08 122/40 09/13/16 09:08 84 122/40 09/13/16 09:00 84 23 188/63 99 Mechanical Ventilator 30 09/13/16 08:34 82 18 30 09/13/16 08:30 82 24 122/40 99 Mechanical Ventilator 30 09/13/16 08:12 20 09/13/16 08:00 30 09/13/16 08:00 79 09/13/16 08:00 98.4 81 24 137/45 99 Mechanical Ventilator 30 09/13/16 07:30 86 24 167/49 100 Mechanical Ventilator 30 09/13/16 07:04 88 16 30 09/13/16 07:00 25 09/13/16 07:00 97 24 169/42 99 Mechanical Ventilator 30 09/13/16 06:30 94 24 159/42 99 Mechanical Ventilator 30 09/13/16 06:00 25 09/13/16 06:00 96 24 160/42 99 Mechanical Ventilator 30 09/13/16 05:30 89 24 163/42 99 Mechanical Ventilator 30 09/13/16 05:01 83 24 159/42 99 Mechanical Ventilator 30 09/13/16 05:00 83 24 140/40 99 Mechanical Ventilator 30 09/13/16 05:00 25 09/13/16 04:44 87 23 30 09/13/16 04:30 83 24 159/42 99 Mechanical Ventilator 30 09/13/16 04:00 98.6 79 24 148/45 99 Mechanical Ventilator 30 09/13/16 04:00 30 09/13/16 04:00 81 09/13/16 04:00 17 09/13/16 03:30 74 24 140/51 99 Mechanical Ventilator 30 09/13/16 03:21 77 20 30 09/13/16 03:00 17 09/13/16 03:00 77 22 133/41 99 Mechanical Ventilator 30 09/13/16 02:30 74 24 140/51 99 Mechanical Ventilator 30 09/13/16 02:00 82 22 140/48 99 Mechanical Ventilator 30 09/13/16 02:00 16 09/13/16 01:30 82 24 132/38 100 Mechanical Ventilator 30 09/13/16 01:22 74 16 30 09/13/16 01:22 15 09/13/16 01:00 76 20 109/34 99 Mechanical Ventilator 30 09/13/16 00:30 82 22 109/34 99 Mechanical Ventilator 30 09/13/16 00:00 30 09/13/16 00:00 17 09/13/16 00:00 98.6 82 22 142/51 99 Mechanical Ventilator 30 09/13/16 00:00 72 09/12/16 23:30 84 25 109/34 99 Mechanical Ventilator 30 09/12/16 23:26 80 16 30 09/12/16 23:00 82 22 140/48 99 Mechanical Ventilator 30 09/12/16 23:00 16 09/12/16 22:30 82 22 132/39 99 Mechanical Ventilator 30 09/12/16 22:00 81 22 154/42 99 Mechanical Ventilator 30 09/12/16 22:00 17 09/12/16 21:30 87 22 116/41 99 Mechanical Ventilator 30 09/12/16 21:15 79 13 30 09/12/16 21:00 17 09/12/16 21:00 89 22 110/46 99 Mechanical Ventilator 30 09/12/16 20:30 85 22 156/50 99 Mechanical Ventilator 30 09/12/16 20:00 18 09/12/16 20:00 83 22 158/50 99 Mechanical Ventilator 09/12/16 20:00 30 09/12/16 20:00 82 09/12/16 19:30 84 22 140/44 99 Mechanical Ventilator 30 09/12/16 19:24 83 22 30 09/12/16 19:00 85 22 164/52 99 Mechanical Ventilator 09/12/16 19:00 19 09/12/16 18:30 84 22 156/46 99 Mechanical Ventilator 30 09/12/16 18:00 80 22 150/46 99 Mechanical Ventilator 30 09/12/16 18:00 21 09/12/16 17:54 130/43 09/12/16 17:30 80 23 167/50 99 Mechanical Ventilator 30 09/12/16 17:00 79 23 130/43 100 Mechanical Ventilator 30 09/12/16 16:48 79 16 30 09/12/16 16:40 23 09/12/16 16:30 79 23 171/52 100 Mechanical Ventilator 30 09/12/16 16:00 21 09/12/16 16:00 79 09/12/16 16:00 98.2 77 21 168/51 100 Mechanical Ventilator 30 09/12/16 16:00 30 09/12/16 15:30 80 22 158/46 99 Mechanical Ventilator 09/12/16 15:05 82 19 30 09/12/16 15:00 82 21 111/36 97 Mechanical Ventilator 30 09/12/16 14:53 27 09/12/16 14:30 82 22 139/39 98 Mechanical Ventilator 30 General Appearance: agitated, on vent Neck: supple Cardiovascular: normal rate, regular rhythm Respiratory/Chest: lungs clear, normal breath sounds Abdomen: normal bowel sounds, non tender, soft Extremities: no swelling Neurologic: other - moves aroudn a bitt on his own not follow any command not respond except to noxiuos stimulai Intake and Output 09/12/16 09/13/16 19:00 07:00 Intake Total 953 ml 884 ml Output Total 5 ml 0 ml Balance 948 ml 884 ml Free Water 50 ml 50 ml IV Total 343 ml 294 ml Tube Feeding 440 ml 480 ml Other 120 ml 60 ml Output Urine Total 5 ml 0 ml # Bowel Movements 4 3 Laboratory Tests Test 09/13/16 03:52 White Blood Count 6.7 K/UL (4.8-10.8) Red Blood Count 3.79 M/UL (4.70-6.10) L Hemoglobin 10.9 G/DL (14.2-18.0) L Hematocrit 35.3 % (42.0-52.0) L Mean Corpuscular Volume 93 FL (80-99) Mean Corpuscular Hemoglobin 28.9 PG (27.0-31.0) Mean Corpuscular Hemoglobin Concent 31.0 G/DL (32.0-36.0) L Red Cell Distribution Width 16.1 % (11.6-14.8) H Platelet Count 209 K/UL (150-450) Mean Platelet Volume 6.5 FL (6.5-10.1) Neutrophils (%) (Auto) 69.5 % (45.0-75.0) Lymphocytes (%) (Auto) 8.2 % (20.0-45.0) L Monocytes (%) (Auto) 12.3 % (1.0-10.0) H Eosinophils (%) (Auto) 8.0 % (0.0-3.0) H Basophils (%) (Auto) 2.0 % (0.0-2.0) Sodium Level 146 mEQ/L (135-145) H Potassium Level 3.4 mEQ/L (3.4-4.9) Chloride Level 100 mEQ/L (98-107) Carbon Dioxide Level 26 mEQ/L (20-30) Anion Gap 20 (5-15) H Blood Urea Nitrogen 52 mg/dL (7-23) H Creatinine 6.1 mg/dL (0.7-1.2) H Estimat Glomerular Filtration Rate 9.2 mL/min (>60) Glucose Level 193 mg/dL (74-106) H Calcium Level 9.4 mg/dL (8.6-10.2) Valproic Acid (Depakene) Level 50 ug/mL (50-100) HUSSEIN CAGE 10, 2017 14:19
--- NOTE | 2016-09-13 17:19 | Neurology Progress Note ---
Interim History Interim History ROS Limited/Unobtainable: Yes Complaints: coma Events: sedated with versed 4mg/hr--no twiching noted, now on HD Objective Physical Exam Last Vital Signs Date Time Temp Pulse Resp B/P Pulse Ox O2 Delivery O2 Flow Rate FiO2 09/13/16 16:48 91 20 30 09/13/16 15:00 151/42 98 Mechanical Ventilator 09/13/16 12:00 98.6 09/09/16 16:31 4.0 Laboratory Tests Test 09/13/16 03:52 White Blood Count 6.7 K/UL (4.8-10.8) Red Blood Count 3.79 M/UL (4.70-6.10) L Hemoglobin 10.9 G/DL (14.2-18.0) L Hematocrit 35.3 % (42.0-52.0) L Mean Corpuscular Volume 93 FL (80-99) Mean Corpuscular Hemoglobin 28.9 PG (27.0-31.0) Mean Corpuscular Hemoglobin Concent 31.0 G/DL (32.0-36.0) L Red Cell Distribution Width 16.1 % (11.6-14.8) H Platelet Count 209 K/UL (150-450) Mean Platelet Volume 6.5 FL (6.5-10.1) Neutrophils (%) (Auto) 69.5 % (45.0-75.0) Lymphocytes (%) (Auto) 8.2 % (20.0-45.0) L Monocytes (%) (Auto) 12.3 % (1.0-10.0) H Eosinophils (%) (Auto) 8.0 % (0.0-3.0) H Basophils (%) (Auto) 2.0 % (0.0-2.0) Sodium Level 146 mEQ/L (135-145) H Potassium Level 3.4 mEQ/L (3.4-4.9) Chloride Level 100 mEQ/L (98-107) Carbon Dioxide Level 26 mEQ/L (20-30) Anion Gap 20 (5-15) H Blood Urea Nitrogen 52 mg/dL (7-23) H Creatinine 6.1 mg/dL (0.7-1.2) H Estimat Glomerular Filtration Rate 9.2 mL/min (>60) Glucose Level 193 mg/dL (74-106) H Calcium Level 9.4 mg/dL (8.6-10.2) Valproic Acid (Depakene) Level 50 ug/mL (50-100) General: no acute distress, other - intubated no twitching noted Head: atraumatic Neck: other - rigid Neurologic Exam Mental Status: other - comatose, verbally unresponcive, Speech: other Language: other Cranial Nerve II: no papilledema Cranial Nerves III, IV, : other - p 2mm sluggish aom-minor on doll,s Cranial Nerve V: other - +corneal Cranial Nerve VII: no facial asymmetry Cranial Nerve VIII: other Cranial Nerve IX: other - poor gag on suction Cranial Nerve XI: other Cranial Nerve XII: tongue midline Motor System: other - flaccid, some spont movement arms Sensory: other Coordination: other Deep Tendon Reflexes: 0 ankle (L), 0 ankle (R), 0 knee (L), 0 knee (R), 1+ bicep (R), 1+ brachioradialis (R), 1+ tricep (L), 1+ tricep (R), 2+ bicep (L), 2 + brachioradialis (L) Reflexes: mute plantar (L), mute plantar (R) Impression/Recommendations Problems: (1) 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 - done. Versed keep x -2 days then , try get off and watch for sz activity titrate 5mg q 1nr -will repeat EEG < Video/eeg not available > d/w staff MINERVA FORMAN Sep 13, 2016 17:19
--- NOTE | 2016-09-13 17:46 | Nephrology Progress Note ---
Assessment/Plan Problem List: (1) ESRD (end stage renal disease) (2) Anoxic encephalopathy syndrome (3) Respiratory failure with hypoxia (4) CHF (congestive heart failure) Plan HD as tolerated Vent support Discussed with Neurology and cardiology and pulmonary Discussed with RN follow labs cont TF Subjective Subjective moves around unresponsive remains intubated Objective Objective Last 24 Hour Vital Signs Date Time Temp Pulse Resp B/P Pulse Ox O2 Delivery O2 Flow Rate FiO2 09/13/16 16:48 91 20 30 09/13/16 16:11 24 09/13/16 16:00 30 09/13/16 16:00 92 09/13/16 15:00 24 09/13/16 15:00 89 24 151/42 98 Mechanical Ventilator 30 09/13/16 14:55 89 21 30 09/13/16 14:00 88 20 167/47 100 Mechanical Ventilator 30 09/13/16 14:00 21 09/13/16 13:59 20 09/13/16 13:30 86 24 162/47 100 Mechanical Ventilator 30 09/13/16 13:11 84 17 30 09/13/16 13:00 84 24 161/44 100 Mechanical Ventilator 30 09/13/16 13:00 19 09/13/16 12:30 84 25 163/47 100 Mechanical Ventilator 30 09/13/16 12:00 98.6 83 20 141/40 99 Mechanical Ventilator 30 09/13/16 12:00 30 09/13/16 12:00 83 09/13/16 11:45 19 09/13/16 11:30 83 19 176/47 99 Mechanical Ventilator 30 09/13/16 11:00 20 09/13/16 11:00 83 21 185/40 98 Mechanical Ventilator 30 09/13/16 10:47 84 20 30 09/13/16 10:30 81 22 128/36 100 Mechanical Ventilator 30 09/13/16 10:00 81 22 168/37 99 Mechanical Ventilator 30 09/13/16 10:00 22 09/13/16 09:30 84 24 187/64 100 Mechanical Ventilator 30 09/13/16 09:09 21 09/13/16 09:08 122/40 09/13/16 09:08 84 122/40 09/13/16 09:00 84 23 188/63 99 Mechanical Ventilator 30 09/13/16 08:34 82 18 30 09/13/16 08:30 82 24 122/40 99 Mechanical Ventilator 30 09/13/16 08:12 20 09/13/16 08:00 30 09/13/16 08:00 79 09/13/16 08:00 98.4 81 24 137/45 99 Mechanical Ventilator 30 09/13/16 07:30 86 24 167/49 100 Mechanical Ventilator 30 09/13/16 07:04 88 16 30 09/13/16 07:00 25 09/13/16 07:00 97 24 169/42 99 Mechanical Ventilator 30 09/13/16 06:30 94 24 159/42 99 Mechanical Ventilator 30 09/13/16 06:00 25 09/13/16 06:00 96 24 160/42 99 Mechanical Ventilator 30 09/13/16 05:30 89 24 163/42 99 Mechanical Ventilator 30 09/13/16 05:01 83 24 159/42 99 Mechanical Ventilator 30 09/13/16 05:00 83 24 140/40 99 Mechanical Ventilator 30 09/13/16 05:00 25 09/13/16 04:44 87 23 30 09/13/16 04:30 83 24 159/42 99 Mechanical Ventilator 30 09/13/16 04:00 98.6 79 24 148/45 99 Mechanical Ventilator 30 09/13/16 04:00 30 09/13/16 04:00 81 09/13/16 04:00 17 09/13/16 03:30 74 24 140/51 99 Mechanical Ventilator 30 09/13/16 03:21 77 20 30 09/13/16 03:00 17 09/13/16 03:00 77 22 133/41 99 Mechanical Ventilator 30 09/13/16 02:30 74 24 140/51 99 Mechanical Ventilator 30 09/13/16 02:00 82 22 140/48 99 Mechanical Ventilator 30 09/13/16 02:00 16 09/13/16 01:30 82 24 132/38 100 Mechanical Ventilator 30 09/13/16 01:22 74 16 30 09/13/16 01:22 15 09/13/16 01:00 76 20 109/34 99 Mechanical Ventilator 30 09/13/16 00:30 82 22 109/34 99 Mechanical Ventilator 30 09/13/16 00:00 30 09/13/16 00:00 17 09/13/16 00:00 98.6 82 22 142/51 99 Mechanical Ventilator 30 09/13/16 00:00 72 09/12/16 23:30 84 25 109/34 99 Mechanical Ventilator 30 09/12/16 23:26 80 16 30 09/12/16 23:00 82 22 140/48 99 Mechanical Ventilator 30 09/12/16 23:00 16 09/12/16 22:30 82 22 132/39 99 Mechanical Ventilator 09/12/16 22:00 81 22 154/42 99 Mechanical Ventilator 09/12/16 22:00 17 09/12/16 21:30 87 22 116/41 99 Mechanical Ventilator 30 09/12/16 21:15 79 13 30 09/12/16 21:00 17 09/12/16 21:00 89 22 110/46 99 Mechanical Ventilator 09/12/16 20:30 85 22 156/50 99 Mechanical Ventilator 09/12/16 20:00 18 09/12/16 20:00 83 22 158/50 99 Mechanical Ventilator 09/12/16 20:00 30 09/12/16 20:00 82 09/12/16 19:30 84 22 140/44 99 Mechanical Ventilator 09/12/16 19:24 83 22 30 09/12/16 19:00 85 22 164/52 99 Mechanical Ventilator 30 09/12/16 19:00 19 09/12/16 18:30 84 22 156/46 99 Mechanical Ventilator 09/12/16 18:00 80 22 150/46 99 Mechanical Ventilator 09/12/16 18:00 21 09/12/16 17:54 130/43 Intake and Output 09/12/16 09/13/16 19:00 07:00 Intake Total 953 ml 884 ml Output Total 5 ml 0 ml Balance 948 ml 884 ml Free Water 50 ml 50 ml IV Total 343 ml 294 ml Tube Feeding 440 ml 480 ml Other 120 ml 60 ml Output Urine Total 5 ml 0 ml # Bowel Movements 4 3 Laboratory Tests 09/13/16 03:52: White Blood Count 6.7, Red Blood Count 3.79L, Hemoglobin 10.9L, Hematocrit 35.3L , Mean Corpuscular Volume 93, Mean Corpuscular Hemoglobin 28.9, Mean Corpuscular Hemoglobin Concent 31.0L, Red Cell Distribution Width 16.1H, Platelet Count 209, Mean Platelet Volume 6.5, Neutrophils (%) (Auto) 69.5, Lymphocytes (%) (Auto) 8.2L, Monocytes (%) (Auto) 12.3H, Eosinophils (%) (Auto) 8.0H, Basophils (%) (Auto) 2.0, Sodium Level 146H, Potassium Level 3.4, Chloride Level 100, Carbon Dioxide Level 26, Anion Gap 20H, Blood Urea Nitrogen 52H, Creatinine 6.1H, Estimat Glomerular Filtration Rate 9.2, Glucose Level 193H , Calcium Level 9.4, Valproic Acid (Depakene) Level 50 Height (Feet): 5 Height (Inches): 6.00 Weight (Pounds): 173 Cardiovascular: normal rate Respiratory/Chest: rhonchi - bilaterally Extremities: trace edema CANDICE BREAUX Sep 13, 2016 17:46
--- NOTE | 2016-09-13 18:19 | Internal Med Progress Note ---
Subjective Date of Service: Sep 13, 2016 Physician Name Filiberto Clancy Attending Physician Harrison Delatorre Current Medications Medications (Trade) Dose Ordered Sig/Mark Route PRN Reason Start Time Stop Time Status Last Admin Dose Admin Acetaminophen (Tylenol) 650 mg Q4H PRN ORAL Mild Pain (Pain Scale 1-3) 09/06/16 23:00 10/06/16 22:59 09/09/16 00:23 Amlodipine Besylate (Norvasc) 10 mg DAILY ORAL 09/07/16 09:00 10/07/16 08:59 09/13/16 09:08 Chlorhexidine Gluconate 1 applic 1 applic DAILY TOPIC 09/10/16 03:30 10/10/16 03:29 09/13/16 00:27 Dextrose (Dextrose 50%) STAT PRN IV Hypoglycemia 09/06/16 23:00 10/06/16 22:59 Heparin Sodium (Porcine) (Heparin 5000 units/ml) 5,000 units EVERY 12 HOURS SUBQ 09/08/16 21:00 10/08/16 20:59 09/13/16 09:09 Insulin Aspart (NovoLOG) EVERY 6 HOURS SUBQ 09/07/16 18:00 10/07/16 17:59 09/13/16 11:54 Lorazepam (Ativan 2mg/ml 1ml) 2 mg Q2H PRN IV For Anxiety 09/07/16 11:00 09/14/16 10:59 09/13/16 09:59 Lorazepam 1 mg 1 mg Q1HR PRN IV For Seizure Activity 09/08/16 22:30 09/15/16 22:29 09/09/16 05:59 Midazolam HCl 50 mg/Dextrose 100 ml @ 0 mls/hr Q24H IV 09/09/16 15:00 10/09/16 14:59 09/13/16 11:45 Minoxidil (Loniten) 15 mg BID ORAL 09/13/16 18:00 10/13/16 17:59 Phenytoin 200 mg/ Sodium Chloride 59 ml @ 114 mls/hr [id number] PHENYTOIN IVPB 09/10/16 16:00 10/10/16 15:59 09/13/16 16:11 Phenytoin 500 mg/ Sodium Chloride 120 ml @ 120 mls/hr POSTHD IVPB 09/11/16 15:00 10/11/16 14:59 09/11/16 16:16 Piperacillin Sod/ Tazobactam Sod/ Dextrose (Zosyn/D5W) 55 ml @ 110 mls/hr Q8HR IVPB 09/09/16 22:00 09/16/16 21:59 09/13/16 13:59 Polyethylene Glycol (Miralax) 17 gm DAILYPRN PRN ORAL Constipation 09/06/16 23:00 10/06/16 22:59 Ranitidine HCl (Zantac) 150 mg BEDTIME ORAL 09/08/16 21:00 10/08/16 20:59 09/12/16 20:36 Valproate Sodium 1500 mg/Dextrose 70 ml @ 32.5 mls/hr Q12HR IV 09/11/16 21:00 10/11/16 20:59 09/13/16 09:09 Valproate Sodium/ Dextrose (Depacon Inj/D5W) 65 ml @ 32.5 mls/hr POSTHD IV 09/11/16 15:00 10/11/16 14:59 09/11/16 16:16 Allergies: Coded Allergies: NIACIN (Verified Allergy, Unknown, ITCHING, 01/30/12) ROS Limited/Unobtainable: Yes Subjective 71 YO M admitted with volume overload and respiratory failure. S/P cardiopulmonary arrest. ICU. Intubated and sedated. Cover for Int Brad-Dr [place]. Objective Last Vital Signs Date Time Temp Pulse Resp B/P Pulse Ox O2 Delivery O2 Flow Rate FiO2 09/13/16 18:00 98 21 163/53 99 Mechanical Ventilator 30 09/13/16 16:30 4.0 09/13/16 16:00 98.6 Laboratory Tests Test 09/13/16 03:52 White Blood Count 6.7 K/UL (4.8-10.8) Red Blood Count 3.79 M/UL (4.70-6.10) L Hemoglobin 10.9 G/DL (14.2-18.0) L Hematocrit 35.3 % (42.0-52.0) L Mean Corpuscular Volume 93 FL (80-99) Mean Corpuscular Hemoglobin 28.9 PG (27.0-31.0) Mean Corpuscular Hemoglobin Concent 31.0 G/DL (32.0-36.0) L Red Cell Distribution Width 16.1 % (11.6-14.8) H Platelet Count 209 K/UL (150-450) Mean Platelet Volume 6.5 FL (6.5-10.1) Neutrophils (%) (Auto) 69.5 % (45.0-75.0) Lymphocytes (%) (Auto) 8.2 % (20.0-45.0) L Monocytes (%) (Auto) 12.3 % (1.0-10.0) H Eosinophils (%) (Auto) 8.0 % (0.0-3.0) H Basophils (%) (Auto) 2.0 % (0.0-2.0) Sodium Level 146 mEQ/L (135-145) H Potassium Level 3.4 mEQ/L (3.4-4.9) Chloride Level 100 mEQ/L (98-107) Carbon Dioxide Level 26 mEQ/L (20-30) Anion Gap 20 (5-15) H Blood Urea Nitrogen 52 mg/dL (7-23) H Creatinine 6.1 mg/dL (0.7-1.2) H Estimat Glomerular Filtration Rate 9.2 mL/min (>60) Glucose Level 193 mg/dL (74-106) H Calcium Level 9.4 mg/dL (8.6-10.2) Valproic Acid (Depakene) Level 50 ug/mL (50-100) Intake and Output 09/12/16 09/13/16 19:00 07:00 Intake Total 953 ml 884 ml Output Total 5 ml 0 ml Balance 948 ml 884 ml Free Water 50 ml 50 ml IV Total 343 ml 294 ml Tube Feeding 440 ml 480 ml Other 120 ml 60 ml Output Urine Total 5 ml 0 ml # Bowel Movements 4 3 Objective General Appearance: WD/WN, lethargic EENT: PERRL/EOMI, normal ENT inspection, TMs normal Neck: non-tender, normal alignment, supple Cardiovascular: normal peripheral pulses, normal rate, regular rhythm, no gallop/murmur, no JVD Respiratory/Chest: Mech vent; chest wall non-tender, crackles/rales, rhonchi - bilaterally, expiratory wheezing Abdomen: normal bowel sounds, non tender, soft, no organomegaly Skin: normal pigmentation, warm/dry Assessment/Plan Problem List: (1) HTN (hypertension) Assessment & Plan: Cont amlodipine. (2) Hyperkalemia (3) Respiratory failure with hypoxia Assessment & Plan: Intubated and sedated. Cont vanco and zosyn per ID (4) ESRD (end stage renal disease) Assessment & Plan: See nephrology note. Last Hemodialysis 09/09/16 per nephrology (5) CHF (congestive heart failure) (6) Diabetes mellitus Assessment & Plan: Cont novolog sliding scale. 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 (9) Anoxic encephalopathy syndrome Assessment & Plan: See neruo note. Status: not improved Assessment/Plan Prognosis is poor. FILIBERTO CLANCY Sep 13, 2016 18:19
[2016-09-13] MEDS: Valproate Sodium INJ 1,000 MG in D5W 55 ML IV SCH (21:18)
[2016-09-13] MEDS: Phenytoin 500 MG in NS 110 ML IVPB SCH (21:19)
--- NOTE | 2016-09-13 21:37 | Pulmonolgy Critical Care Note ---
Critical Care - Asmt/Plan Assessment/Plan: 1. Status post cardiac arrest. 2. Renal failure with hyperkalemia. 3. Respiratory failure. 4. Anoxic encephalopathy. 5. Status epilepticus 6. Coronary artery disease. 7. History of cardiomyopathy. 8. Diabetes. 9. Hypertension. sedation as needed, versend and monitor for seizure activity--defer to neuro consider weaning next 24-48 hours if sedation is lifted, but reserved if he will tolerate and will need trach/GT nebs and suction monitor BP, pressors if MAP less than 65 mmhg wound care TF prognosis guarded DVT prophylaxis HD per renal continue abx cxr thursday greater than 235 minutes of critical care time spent with the patient, reviewing the records, dw nursing and plan for the day Cardiac: stop pressors Renal: F/U I&O Infectious Disease: check cultures, continue antibiotics Gastrointestinal: continue feedings/current rate Prophylaxis: Heparin Disposition: keep in ICU Time Spent (Minutes): 40 Critical Care - Objective Last 24 Hour Vital Signs Date Time Temp Pulse Resp B/P Pulse Ox O2 Delivery O2 Flow Rate FiO2 09/13/16 20:59 97 22 30 09/13/16 19:56 Mechanical Ventilator 4.0 30 09/13/16 19:40 103 28 30 09/13/16 18:00 98 21 163/53 99 Mechanical Ventilator 30 09/13/16 18:00 21 09/13/16 17:57 152/46 09/13/16 17:30 98 24 137/46 97 Mechanical Ventilator 30 09/13/16 17:00 93 23 160/50 99 Mechanical Ventilator 30 09/13/16 17:00 24 09/13/16 16:48 91 20 30 09/13/16 16:30 Mechanical Ventilator 4.0 30 09/13/16 16:30 92 25 169/51 99 Mechanical Ventilator 30 09/13/16 16:11 24 09/13/16 16:00 30 09/13/16 16:00 98.6 91 23 186/53 99 Mechanical Ventilator 30 09/13/16 16:00 92 09/13/16 15:30 89 23 150/41 99 Mechanical Ventilator 30 09/13/16 15:00 24 09/13/16 15:00 89 24 151/42 98 Mechanical Ventilator 30 09/13/16 14:55 89 21 30 09/13/16 14:30 88 26 180/43 99 Mechanical Ventilator 30 09/13/16 14:00 88 20 167/47 100 Mechanical Ventilator 30 09/13/16 14:00 21 09/13/16 13:59 20 09/13/16 13:30 86 24 162/47 100 Mechanical Ventilator 30 09/13/16 13:11 84 17 30 09/13/16 13:00 84 24 161/44 100 Mechanical Ventilator 30 09/13/16 13:00 19 09/13/16 12:30 84 25 163/47 100 Mechanical Ventilator 30 09/13/16 12:00 98.6 83 20 141/40 99 Mechanical Ventilator 30 09/13/16 12:00 30 09/13/16 12:00 83 09/13/16 11:45 19 09/13/16 11:30 83 19 176/47 99 Mechanical Ventilator 30 09/13/16 11:00 20 09/13/16 11:00 83 21 185/40 98 Mechanical Ventilator 30 09/13/16 10:47 84 20 30 09/13/16 10:30 81 22 128/36 100 Mechanical Ventilator 30 09/13/16 10:00 81 22 168/37 99 Mechanical Ventilator 30 09/13/16 10:00 22 09/13/16 09:30 84 24 187/64 100 Mechanical Ventilator 30 09/13/16 09:09 21 09/13/16 09:08 122/40 09/13/16 09:08 84 122/40 09/13/16 09:00 84 23 188/63 99 Mechanical Ventilator 30 09/13/16 08:34 82 18 30 09/13/16 08:30 82 24 122/40 99 Mechanical Ventilator 30 09/13/16 08:12 20 09/13/16 08:00 30 09/13/16 08:00 79 09/13/16 08:00 98.4 81 24 137/45 99 Mechanical Ventilator 30 09/13/16 07:30 86 24 167/49 100 Mechanical Ventilator 30 09/13/16 07:04 88 16 30 09/13/16 07:00 25 09/13/16 07:00 97 24 169/42 99 Mechanical Ventilator 30 09/13/16 06:30 94 24 159/42 99 Mechanical Ventilator 30 09/13/16 06:00 25 09/13/16 06:00 96 24 160/42 99 Mechanical Ventilator 30 09/13/16 05:30 89 24 163/42 99 Mechanical Ventilator 30 09/13/16 05:01 83 24 159/42 99 Mechanical Ventilator 30 09/13/16 05:00 83 24 140/40 99 Mechanical Ventilator 30 09/13/16 05:00 25 09/13/16 04:44 87 23 30 09/13/16 04:30 83 24 159/42 99 Mechanical Ventilator 30 09/13/16 04:00 98.6 79 24 148/45 99 Mechanical Ventilator 09/13/16 04:00 30 09/13/16 04:00 81 09/13/16 04:00 17 09/13/16 03:30 74 24 140/51 99 Mechanical Ventilator 09/13/16 03:21 77 20 30 09/13/16 03:00 17 09/13/16 03:00 77 22 133/41 99 Mechanical Ventilator 09/13/16 02:30 74 24 140/51 99 Mechanical Ventilator 09/13/16 02:00 82 22 140/48 99 Mechanical Ventilator 09/13/16 02:00 16 09/13/16 01:30 82 24 132/38 100 Mechanical Ventilator 09/13/16 01:22 74 16 30 09/13/16 01:22 15 09/13/16 01:00 76 20 109/34 99 Mechanical Ventilator 09/13/16 00:30 82 22 109/34 99 Mechanical Ventilator 09/13/16 00:00 30 09/13/16 00:00 17 09/13/16 00:00 98.6 82 22 142/51 99 Mechanical Ventilator 09/13/16 00:00 72 09/12/16 23:30 84 25 109/34 99 Mechanical Ventilator 09/12/16 23:26 80 16 30 09/12/16 23:00 82 22 140/48 99 Mechanical Ventilator 30 09/12/16 23:00 16 09/12/16 22:30 82 22 132/39 99 Mechanical Ventilator 30 09/12/16 22:00 81 22 154/42 99 Mechanical Ventilator 30 09/12/16 22:00 17 Status: obtunded Condition: critical Lungs: rhonchi Heart: HR/BP stable Abdomen: soft, non-tender, active bowel sounds Extremities: edema Decubiti: location Accucheck: 177 Blood Sugars: BS not controlled Critical Care - Subjective ROS Limited/Unobtainable: Yes Condition: critical FI02: 30 Vent Support Breath Rate: 12 Vent Support Mode: AC Vent Tidal Volume: 500 Sputum Amount: Moderate PIP: 31 Tube Feeding Amount: 40 I&O: Intake and Output 09/12/16 09/13/16 19:00 07:00 Intake Total 953 ml 884 ml Output Total 5 ml 0 ml Balance 948 ml 884 ml Free Water 50 ml 50 ml IV Total 343 ml 294 ml Tube Feeding 440 ml 480 ml Other 120 ml 60 ml Output Urine Total 5 ml 0 ml # Bowel Movements 4 3 Subjective: obtunded on the vent rr set 12 breathing 20 bp stable no visible seizure activity tolerating tf no pressors ET-Tube: 8.0 ET Position: 24 Labs: Current Medications Medications (Trade) Dose Ordered Sig/Mark Route PRN Reason Start Time Stop Time Status Last Admin Dose Admin Acetaminophen (Tylenol) 650 mg Q4H PRN ORAL Mild Pain (Pain Scale 1-3) 09/06/16 23:00 10/06/16 22:59 09/09/16 00:23 Amlodipine Besylate (Norvasc) 10 mg DAILY ORAL 09/07/16 09:00 10/07/16 08:59 09/13/16 09:08 Chlorhexidine Gluconate 1 applic 1 applic DAILY TOPIC 09/10/16 03:30 10/10/16 03:29 09/13/16 00:27 Dextrose (Dextrose 50%) STAT PRN IV Hypoglycemia 09/06/16 23:00 10/06/16 22:59 Heparin Sodium (Porcine) (Heparin 5000 units/ml) 5,000 units EVERY 12 HOURS SUBQ 09/08/16 21:00 10/08/16 20:59 09/13/16 21:17 Insulin Aspart (NovoLOG) EVERY 6 HOURS SUBQ 09/07/16 18:00 10/07/16 17:59 09/13/16 18:23 Lorazepam (Ativan 2mg/ml 1ml) 2 mg Q2H PRN IV For Anxiety 09/07/16 11:00 09/14/16 10:59 09/13/16 09:59 Lorazepam 1 mg 1 mg Q1HR PRN IV For Seizure Activity 09/08/16 22:30 09/15/16 22:29 09/09/16 05:59 Midazolam HCl 50 mg/Dextrose 100 ml @ 0 mls/hr Q24H IV 09/09/16 15:00 10/09/16 14:59 09/13/16 11:45 Minoxidil (Loniten) 15 mg BID ORAL 09/13/16 18:00 10/13/16 17:59 Phenytoin 200 mg/ Sodium Chloride 59 ml @ 114 mls/hr [id number] PHENYTOIN IVPB 09/10/16 16:00 10/10/16 15:59 09/13/16 16:11 Phenytoin 500 mg/ Sodium Chloride 120 ml @ 120 mls/hr POSTHD IVPB 09/11/16 15:00 10/11/16 14:59 09/13/16 21:19 Piperacillin Sod/ Tazobactam Sod/ Dextrose (Zosyn/D5W) 55 ml @ 110 mls/hr Q8HR IVPB 09/09/16 22:00 09/16/16 21:59 09/13/16 13:59 Polyethylene Glycol (Miralax) 17 gm DAILYPRN PRN ORAL Constipation 09/06/16 23:00 10/06/16 22:59 Ranitidine HCl (Zantac) 150 mg BEDTIME ORAL 09/08/16 21:00 10/08/16 20:59 09/13/16 21:21 Valproate Sodium 1500 mg/Dextrose 70 ml @ 32.5 mls/hr Q12HR IV 09/11/16 21:00 10/11/16 20:59 09/13/16 09:09 Valproate Sodium/ Dextrose (Depacon Inj/D5W) 65 ml @ 32.5 mls/hr POSTHD IV 09/11/16 15:00 10/11/16 14:59 09/13/16 21:18 Laboratory Tests Test 09/13/16 03:52 White Blood Count 6.7 K/UL (4.8-10.8) Red Blood Count 3.79 M/UL (4.70-6.10) L Hemoglobin 10.9 G/DL (14.2-18.0) L Hematocrit 35.3 % (42.0-52.0) L Mean Corpuscular Volume 93 FL (80-99) Mean Corpuscular Hemoglobin 28.9 PG (27.0-31.0) Mean Corpuscular Hemoglobin Concent 31.0 G/DL (32.0-36.0) L Red Cell Distribution Width 16.1 % (11.6-14.8) H Platelet Count 209 K/UL (150-450) Mean Platelet Volume 6.5 FL (6.5-10.1) Neutrophils (%) (Auto) 69.5 % (45.0-75.0) Lymphocytes (%) (Auto) 8.2 % (20.0-45.0) L Monocytes (%) (Auto) 12.3 % (1.0-10.0) H Eosinophils (%) (Auto) 8.0 % (0.0-3.0) H Basophils (%) (Auto) 2.0 % (0.0-2.0) Sodium Level 146 mEQ/L (135-145) H Potassium Level 3.4 mEQ/L (3.4-4.9) Chloride Level 100 mEQ/L (98-107) Carbon Dioxide Level 26 mEQ/L (20-30) Anion Gap 20 (5-15) H Blood Urea Nitrogen 52 mg/dL (7-23) H Creatinine 6.1 mg/dL (0.7-1.2) H Estimat Glomerular Filtration Rate 9.2 mL/min (>60) Glucose Level 193 mg/dL (74-106) H Calcium Level 9.4 mg/dL (8.6-10.2) Valproic Acid (Depakene) Level 50 ug/mL (50-100) KOLTON RENTERIA DO Sep 13, 2016 21:37
[2016-09-14] VITALS (42 sets, daily range): BP systolic 101–177; BP diastolic 34–78
[2016-09-14] MEDS: NovoLOG Insulin Flexpen SUBQ SCH ×5 (00:15→23:40)
[2016-09-14] MEDS: D5W IV SCH ×3 (04:33→21:06)
[2016-09-14] MEDS: MIDAZOLAM IV SCH ×2 (04:33→21:06)
[2016-09-14] MEDS: Piperacillin/Tazobactam 2.25 GM in D5W 55 ML IVPB SCH (06:26)
[2016-09-14] MEDS: Minoxidil 10mg tab ORAL SCH ×2 (08:07→18:03)
[2016-09-14] MEDS: Heparin 5000 units/ml inj SUBQ SCH ×2 (08:07→21:01)
[2016-09-14] MEDS: Dyna-Hex 2% Top Sol 8oz TOPIC SCH (08:08)
[2016-09-14] MEDS: Phenytoin 200 MG in NS 55 ML IVPB SCH ×3 (08:12→23:27)
[2016-09-14] MEDS ORDERED: NS 275ml ONE (08:38)
[2016-09-14] MEDS ORDERED: Tubing IV Secondary IV ONE (08:38)
--- NOTE | 2016-09-14 09:08 | Infectious Diseases Prog Note ---
Assessment/Plan Assessment/Plan A; Aspiration pneumonia s/p Rx COPD s/p cardiac arrest Anoxic encephalopathy ESRD on HD Respiratory failure P; may discontinue Zosyn Subjective ROS Limited/Unobtainable: Yes Allergies: Coded Allergies: NIACIN (Verified Allergy, Unknown, ITCHING, 01/30/12) Objective Vital Signs Last 24 Hour Vital Signs Date Time Temp Pulse Resp B/P Pulse Ox O2 Delivery O2 Flow Rate FiO2 09/14/16 08:07 146/41 09/14/16 08:07 88 146/41 09/14/16 08:00 30 09/14/16 08:00 99.0 84 25 145/38 99 Mechanical Ventilator 30 09/14/16 08:00 86 09/14/16 07:30 83 23 146/40 99 Mechanical Ventilator 30 09/14/16 07:00 87 23 146/50 99 Mechanical Ventilator 30 09/14/16 06:57 89 19 30 09/14/16 06:30 88 23 167/50 99 Mechanical Ventilator 30 09/14/16 06:00 88 23 148/49 99 Mechanical Ventilator 30 09/14/16 05:30 90 23 119/54 99 Mechanical Ventilator 30 09/14/16 05:08 89 14 30 09/14/16 04:33 24 09/14/16 04:30 92 23 167/50 99 Mechanical Ventilator 30 09/14/16 04:00 89 23 161/49 99 Mechanical Ventilator 30 09/14/16 04:00 89 09/14/16 04:00 30 09/14/16 03:30 92 25 161/49 99 Mechanical Ventilator 30 09/14/16 03:04 89 17 30 09/14/16 03:00 91 25 126/43 99 Mechanical Ventilator 09/14/16 02:30 91 27 136/50 99 Mechanical Ventilator 30 09/14/16 02:00 89 27 136/50 99 Mechanical Ventilator 30 09/14/16 01:30 90 23 136/50 99 Mechanical Ventilator 30 09/14/16 01:00 93 23 140/45 99 Mechanical Ventilator 30 09/14/16 00:50 94 22 30 09/14/16 00:30 91 29 140/45 98 Mechanical Ventilator 30 09/14/16 00:00 98.9 94 29 134/43 98 Mechanical Ventilator 30 09/14/16 00:00 30 09/14/16 00:00 94 09/13/16 23:04 95 20 30 09/13/16 22:30 95 26 166/51 99 Mechanical Ventilator 30 09/13/16 22:00 94 26 165/51 99 Mechanical Ventilator 30 09/13/16 21:00 96 25 169/74 99 Mechanical Ventilator 30 09/13/16 20:59 97 22 30 09/13/16 20:30 95 27 144/57 99 Mechanical Ventilator 30 09/13/16 20:00 30 09/13/16 20:00 94 09/13/16 20:00 98.7 94 26 148/53 99 Mechanical Ventilator 30 09/13/16 19:56 Mechanical Ventilator 4.0 30 09/13/16 19:40 103 28 30 09/13/16 19:30 102 27 109/50 98 Mechanical Ventilator 30 09/13/16 19:00 94 24 148/49 98 Mechanical Ventilator 30 09/13/16 18:00 98 21 163/53 99 Mechanical Ventilator 30 09/13/16 18:00 21 09/13/16 17:57 152/46 09/13/16 17:30 98 24 137/46 97 Mechanical Ventilator 30 09/13/16 17:00 93 23 160/50 99 Mechanical Ventilator 30 09/13/16 17:00 24 09/13/16 16:48 91 20 30 09/13/16 16:30 Mechanical Ventilator 4.0 30 09/13/16 16:30 92 25 169/51 99 Mechanical Ventilator 30 09/13/16 16:11 24 09/13/16 16:00 30 09/13/16 16:00 98.6 91 23 186/53 99 Mechanical Ventilator 30 09/13/16 16:00 92 09/13/16 15:30 89 23 150/41 99 Mechanical Ventilator 30 09/13/16 15:00 24 09/13/16 15:00 89 24 151/42 98 Mechanical Ventilator 30 09/13/16 14:55 89 21 30 09/13/16 14:30 88 26 180/43 99 Mechanical Ventilator 30 09/13/16 14:00 88 20 167/47 100 Mechanical Ventilator 30 09/13/16 14:00 21 09/13/16 13:59 20 09/13/16 13:30 86 24 162/47 100 Mechanical Ventilator 30 09/13/16 13:11 84 17 30 09/13/16 13:00 84 24 161/44 100 Mechanical Ventilator 30 09/13/16 13:00 19 09/13/16 12:30 84 25 163/47 100 Mechanical Ventilator 30 09/13/16 12:00 98.6 83 20 141/40 99 Mechanical Ventilator 30 09/13/16 12:00 30 09/13/16 12:00 83 09/13/16 11:45 19 09/13/16 11:30 83 19 176/47 99 Mechanical Ventilator 30 09/13/16 11:00 20 09/13/16 11:00 83 21 185/40 98 Mechanical Ventilator 30 09/13/16 10:47 84 20 30 09/13/16 10:30 81 22 128/36 100 Mechanical Ventilator 30 09/13/16 10:00 81 22 168/37 99 Mechanical Ventilator 30 09/13/16 10:00 22 09/13/16 09:30 84 24 187/64 100 Mechanical Ventilator 30 09/13/16 09:09 21 09/13/16 09:08 122/40 09/13/16 09:08 84 122/40 Height (Feet): 5 Height (Inches): 6.00 Weight (Pounds): 172 HEENT: tonsils swollen - intubated, other Respiratory/Chest: lungs clear, other - on ventilator Cardiovascular: normal rate, other - R Perma-cath Abdomen: soft, non tender, other - orogastric tube Extremities: other - decreased edema, right femoral central line Neurologic/Psychiatric: other - poorly resposive Laboratory Tests Test 09/14/16 04:00 Valproic Acid (Depakene) Level 77 ug/mL (50-100) Current Medications Medications (Trade) Dose Ordered Sig/Mark Route PRN Reason Start Time Stop Time Status Last Admin Dose Admin Acetaminophen (Tylenol) 650 mg Q4H PRN ORAL Mild Pain (Pain Scale 1-3) 09/06/16 23:00 10/06/16 22:59 09/09/16 00:23 Amlodipine Besylate (Norvasc) 10 mg DAILY ORAL 09/07/16 09:00 10/07/16 08:59 09/14/16 08:07 Chlorhexidine Gluconate 1 applic 1 applic DAILY TOPIC 09/10/16 03:30 10/10/16 03:29 09/14/16 08:08 Dextrose (Dextrose 50%) STAT PRN IV Hypoglycemia 09/06/16 23:00 7/3/17 22:59 Heparin Sodium (Porcine) (Heparin 5000 units/ml) 5,000 units EVERY 12 HOURS SUBQ 09/08/16 21:00 10/08/16 20:59 09/14/16 08:07 Insulin Aspart (NovoLOG) EVERY 6 HOURS SUBQ 09/07/16 18:00 10/07/16 17:59 09/14/16 06:25 Lorazepam (Ativan 2mg/ml 1ml) 2 mg Q2H PRN IV For Anxiety 09/07/16 11:00 09/14/16 10:59 09/13/16 09:59 Lorazepam 1 mg 1 mg Q1HR PRN IV For Seizure Activity 09/08/16 22:30 09/15/16 22:29 09/09/16 05:59 Midazolam HCl 50 mg/Dextrose 100 ml @ 0 mls/hr Q24H IV 09/09/16 15:00 10/09/16 14:59 09/14/16 04:33 Minoxidil (Loniten) 15 mg BID ORAL 09/13/16 18:00 10/13/16 17:59 Phenytoin 200 mg/ Sodium Chloride 59 ml @ 114 mls/hr [id number] PHENYTOIN IVPB 09/10/16 16:00 10/10/16 15:59 09/14/16 08:12 Phenytoin 500 mg/ Sodium Chloride 120 ml @ 120 mls/hr POSTHD IVPB 09/11/16 15:00 10/11/16 14:59 09/13/16 21:19 Piperacillin Sod/ Tazobactam Sod/ Dextrose (Zosyn/D5W) 55 ml @ 110 mls/hr Q8HR IVPB 09/09/16 22:00 09/16/16 21:59 09/14/16 06:26 Polyethylene Glycol (Miralax) 17 gm DAILYPRN PRN ORAL Constipation 09/06/16 23:00 10/06/16 22:59 Ranitidine HCl (Zantac) 150 mg BEDTIME ORAL 09/08/16 21:00 10/08/16 20:59 09/13/16 21:21 Valproate Sodium 1500 mg/Dextrose 70 ml @ 32.5 mls/hr Q12HR IV 09/11/16 21:00 7/8/17 20:59 09/13/16 22:30 Valproate Sodium/ Dextrose (Depacon Inj/D5W) 65 ml @ 32.5 mls/hr POSTHD IV 09/11/16 15:00 10/11/16 14:59 09/13/16 21:18 ROZINA BREAUX Sep 14, 2016 09:08
--- NOTE | 2016-09-14 14:44 | Cardiology Progress Note ---
Assessment/Plan Assessment/Plan cardiopulm arrest anoxic encephalopathy esrd on hd noncompliant with dialysis htn chronic diastolic failure hx cad status epilepticus all trop neg ekg noted telel neg on the vent dialysis as planned d/w neuro will dc sedative bp seem better d/w rn d/w family Subjective ROS Limited/Unobtainable: Yes Subjective on verntnot responsive except to noxious stimuli grimaces Objective Last 24 Hour Vital Signs Date Time Temp Pulse Resp B/P Pulse Ox O2 Delivery O2 Flow Rate FiO2 09/14/16 13:30 87 26 124/38 98 Mechanical Ventilator 30 09/14/16 13:16 98.7 09/14/16 12:59 86 22 116/37 99 Mechanical Ventilator 30 09/14/16 12:49 85 15 30 09/14/16 12:30 87 22 138/42 99 Mechanical Ventilator 30 09/14/16 12:00 85 09/14/16 12:00 98.4 86 18 170/40 99 Mechanical Ventilator 30 09/14/16 12:00 30 09/14/16 11:30 86 18 121/36 99 Mechanical Ventilator 30 09/14/16 11:00 83 20 130/43 99 Mechanical Ventilator 30 09/14/16 10:53 88 21 30 09/14/16 10:30 85 20 101/34 99 Mechanical Ventilator 30 09/14/16 10:00 85 20 126/36 99 Mechanical Ventilator 30 09/14/16 09:30 86 20 134/41 99 Mechanical Ventilator 30 09/14/16 09:00 87 19 141/56 99 Mechanical Ventilator 30 09/14/16 08:50 86 14 30 09/14/16 08:30 86 21 145/39 99 Mechanical Ventilator 30 09/14/16 08:07 146/41 09/14/16 08:07 88 146/41 09/14/16 08:00 30 09/14/16 08:00 99.0 84 25 145/38 99 Mechanical Ventilator 30 09/14/16 08:00 86 09/14/16 07:30 83 23 146/40 99 Mechanical Ventilator 30 09/14/16 07:00 87 23 146/50 99 Mechanical Ventilator 30 09/14/16 06:57 89 19 30 09/14/16 06:30 88 23 167/50 99 Mechanical Ventilator 30 09/14/16 06:00 88 23 148/49 99 Mechanical Ventilator 30 09/14/16 05:30 90 23 119/54 99 Mechanical Ventilator 30 09/14/16 05:08 89 14 30 09/14/16 04:33 24 09/14/16 04:30 92 23 167/50 99 Mechanical Ventilator 30 09/14/16 04:00 89 23 161/49 99 Mechanical Ventilator 30 09/14/16 04:00 89 09/14/16 04:00 30 09/14/16 03:30 92 25 161/49 99 Mechanical Ventilator 30 09/14/16 03:04 89 17 30 09/14/16 03:00 91 25 126/43 99 Mechanical Ventilator 30 09/14/16 02:30 91 27 136/50 99 Mechanical Ventilator 30 09/14/16 02:00 89 27 136/50 99 Mechanical Ventilator 30 09/14/16 01:30 90 23 136/50 99 Mechanical Ventilator 30 09/14/16 01:00 93 23 140/45 99 Mechanical Ventilator 30 09/14/16 00:50 94 22 30 09/14/16 00:30 91 29 140/45 98 Mechanical Ventilator 30 09/14/16 00:00 98.9 94 29 134/43 98 Mechanical Ventilator 30 09/14/16 00:00 30 09/14/16 00:00 94 09/13/16 23:04 95 20 30 09/13/16 22:30 95 26 166/51 99 Mechanical Ventilator 30 09/13/16 22:00 94 26 165/51 99 Mechanical Ventilator 30 09/13/16 21:00 96 25 169/74 99 Mechanical Ventilator 30 09/13/16 20:59 97 22 30 09/13/16 20:30 95 27 144/57 99 Mechanical Ventilator 30 09/13/16 20:00 30 09/13/16 20:00 94 09/13/16 20:00 98.7 94 26 148/53 99 Mechanical Ventilator 30 09/13/16 19:56 Mechanical Ventilator 4.0 30 09/13/16 19:40 103 28 30 09/13/16 19:30 102 27 109/50 98 Mechanical Ventilator 30 09/13/16 19:00 94 24 148/49 98 Mechanical Ventilator 30 09/13/16 18:00 98 21 163/53 99 Mechanical Ventilator 30 09/13/16 18:00 21 09/13/16 17:57 152/46 09/13/16 17:30 98 24 137/46 97 Mechanical Ventilator 30 09/13/16 17:00 93 23 160/50 99 Mechanical Ventilator 30 09/13/16 17:00 24 09/13/16 16:48 91 20 30 09/13/16 16:30 Mechanical Ventilator 4.0 30 09/13/16 16:30 92 25 169/51 99 Mechanical Ventilator 30 09/13/16 16:11 24 09/13/16 16:00 30 09/13/16 16:00 98.6 91 23 186/53 99 Mechanical Ventilator 30 09/13/16 16:00 92 09/13/16 15:30 89 23 150/41 99 Mechanical Ventilator 30 09/13/16 15:00 24 09/13/16 15:00 89 24 151/42 98 Mechanical Ventilator 30 09/13/16 14:55 89 21 30 General Appearance: no apparent distress, on vent Neck: supple Cardiovascular: normal rate, regular rhythm, systolic murmur - not new has been present Respiratory/Chest: chest wall non-tender, lungs clear, normal breath sounds Abdomen: normal bowel sounds, non tender, soft Extremities: no swelling Intake and Output 09/13/16 09/14/16 19:00 07:00 Intake Total 891 ml 1068 ml Output Total 0 ml 3300 ml Balance 891 ml -2232 ml Free Water 50 ml 150 ml IV Total 341 ml 438 ml Tube Feeding 440 ml 480 ml Other 60 ml Output Urine Total 0 ml 0 ml Hemodialysis UF 3300 ml # Bowel Movements 3 3 Laboratory Tests Test 09/14/16 04:00 Valproic Acid (Depakene) Level 77 ug/mL (50-100) HUSSEIN CAGE Sep 14, 2016 14:44
--- NOTE | 2016-09-14 14:46 | Neurology Progress Note ---
Interim History Interim History ROS Limited/Unobtainable: Yes Complaints: coma Events: sedated with versed 4mg/hr--no twiching noted, now onVENT Objective Physical Exam Last Vital Signs Date Time Temp Pulse Resp B/P Pulse Ox O2 Delivery O2 Flow Rate FiO2 09/14/16 13:30 87 26 124/38 98 Mechanical Ventilator 30 09/14/16 13:16 98.7 09/13/16 19:56 4.0 Laboratory Tests Test 09/14/16 04:00 Valproic Acid (Depakene) Level 77 ug/mL (50-100) General: no acute distress, other - intubated no twitching noted Head: atraumatic Neck: other - rigid Neurologic Exam Mental Status: other - comatose, verbally unresponcive, Speech: other Language: other Cranial Nerve II: no papilledema Cranial Nerves III, IV, : other - p 2mm sluggish aom-minor on doll,s Cranial Nerve V: other - +corneal Cranial Nerve VII: no facial asymmetry Cranial Nerve VIII: other Cranial Nerve IX: other - poor gag on suction Cranial Nerve XI: other Cranial Nerve XII: tongue midline Motor System: other - flaccid, some spont movement arms Sensory: other Coordination: other Deep Tendon Reflexes: 0 ankle (L), 0 ankle (R), 0 knee (L), 0 knee (R), 1+ bicep (R), 1+ brachioradialis (R), 1+ tricep (L), 1+ tricep (R), 2+ bicep (L), 2 + brachioradialis (L) Reflexes: mute plantar (L), mute plantar (R) Impression/Recommendations Problems: (1) 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
[2016-09-14] MEDS: LORazepam Inj 2mg/ml 1ml IV PRN (15:31)
--- NOTE | 2016-09-14 17:14 | Nephrology Progress Note ---
Assessment/Plan Problem List: (1) ESRD (end stage renal disease) (2) Anoxic encephalopathy syndrome (3) Respiratory failure with hypoxia (4) CHF (congestive heart failure) Plan HD on thursday EEG tomorrow Vent support Discussed with RN follow labs Off Abxs cont TF Subjective Subjective remains intubated Objective Objective Last 24 Hour Vital Signs Date Time Temp Pulse Resp B/P Pulse Ox O2 Delivery O2 Flow Rate FiO2 09/14/16 16:30 90 23 155/41 98 Mechanical Ventilator 30 09/14/16 16:00 92 09/14/16 16:00 99.2 91 22 116/42 100 Mechanical Ventilator 30 09/14/16 16:00 30 09/14/16 15:30 87 26 102/35 98 Mechanical Ventilator 30 09/14/16 15:00 87 26 167/78 98 Mechanical Ventilator 30 09/14/16 14:40 88 14 30 09/14/16 14:30 87 26 161/40 98 Mechanical Ventilator 30 09/14/16 14:00 89 26 150/42 98 Mechanical Ventilator 30 09/14/16 13:30 87 26 124/38 98 Mechanical Ventilator 30 09/14/16 13:16 98.7 09/14/16 12:59 86 22 116/37 99 Mechanical Ventilator 30 09/14/16 12:49 85 15 30 09/14/16 12:30 87 22 138/42 99 Mechanical Ventilator 30 09/14/16 12:00 85 09/14/16 12:00 98.4 86 18 170/40 99 Mechanical Ventilator 30 09/14/16 12:00 30 09/14/16 11:30 86 18 121/36 99 Mechanical Ventilator 30 09/14/16 11:00 83 20 130/43 99 Mechanical Ventilator 30 09/14/16 10:53 88 21 30 09/14/16 10:30 85 20 101/34 99 Mechanical Ventilator 30 09/14/16 10:00 85 20 126/36 99 Mechanical Ventilator 30 09/14/16 09:30 86 20 134/41 99 Mechanical Ventilator 30 09/14/16 09:00 87 19 141/56 99 Mechanical Ventilator 30 09/14/16 08:50 86 14 30 09/14/16 08:30 86 21 145/39 99 Mechanical Ventilator 30 09/14/16 08:07 146/41 09/14/16 08:07 88 146/41 09/14/16 08:00 30 09/14/16 08:00 99.0 84 25 145/38 99 Mechanical Ventilator 30 09/14/16 08:00 86 09/14/16 07:30 83 23 146/40 99 Mechanical Ventilator 30 09/14/16 07:00 87 23 146/50 99 Mechanical Ventilator 30 09/14/16 06:57 89 19 30 09/14/16 06:30 88 23 167/50 99 Mechanical Ventilator 30 09/14/16 06:00 88 23 148/49 99 Mechanical Ventilator 30 09/14/16 05:30 90 23 119/54 99 Mechanical Ventilator 30 09/14/16 05:08 89 14 30 09/14/16 04:33 24 09/14/16 04:30 92 23 167/50 99 Mechanical Ventilator 30 09/14/16 04:00 89 23 161/49 99 Mechanical Ventilator 30 09/14/16 04:00 89 09/14/16 04:00 30 09/14/16 03:30 92 25 161/49 99 Mechanical Ventilator 30 09/14/16 03:04 89 17 30 09/14/16 03:00 91 25 126/43 99 Mechanical Ventilator 30 09/14/16 02:30 91 27 136/50 99 Mechanical Ventilator 30 09/14/16 02:00 89 27 136/50 99 Mechanical Ventilator 30 09/14/16 01:30 90 23 136/50 99 Mechanical Ventilator 30 09/14/16 01:00 93 23 140/45 99 Mechanical Ventilator 30 09/14/16 00:50 94 22 30 09/14/16 00:30 91 29 140/45 98 Mechanical Ventilator 30 09/14/16 00:00 98.9 94 29 134/43 98 Mechanical Ventilator 30 09/14/16 00:00 30 09/14/16 00:00 94 09/13/16 23:04 95 20 30 09/13/16 22:30 95 26 166/51 99 Mechanical Ventilator 30 09/13/16 22:00 94 26 165/51 99 Mechanical Ventilator 30 09/13/16 21:00 96 25 169/74 99 Mechanical Ventilator 30 09/13/16 20:59 97 22 30 09/13/16 20:30 95 27 144/57 99 Mechanical Ventilator 30 09/13/16 20:00 30 09/13/16 20:00 94 09/13/16 20:00 98.7 94 26 148/53 99 Mechanical Ventilator 30 09/13/16 19:56 Mechanical Ventilator 4.0 30 09/13/16 19:40 103 28 30 09/13/16 19:30 102 27 109/50 98 Mechanical Ventilator 30 09/13/16 19:00 94 24 148/49 98 Mechanical Ventilator 30 09/13/16 18:00 98 21 163/53 99 Mechanical Ventilator 30 09/13/16 18:00 21 09/13/16 17:57 152/46 09/13/16 17:30 98 24 137/46 97 Mechanical Ventilator 30 Intake and Output 09/13/16 09/14/16 19:00 07:00 Intake Total 891 ml 1068 ml Output Total 0 ml 3300 ml Balance 891 ml -2232 ml Free Water 50 ml 150 ml IV Total 341 ml 438 ml Tube Feeding 440 ml 480 ml Other 60 ml Output Urine Total 0 ml 0 ml Hemodialysis UF 3300 ml # Bowel Movements 3 3 Laboratory Tests 09/14/16 04:00: Valproic Acid (Depakene) Level 77 Height (Feet): 5 Height (Inches): 6.00 Weight (Pounds): 172 Cardiovascular: normal rate Respiratory/Chest: lungs clear Extremities: other - no edema CANDICE BREAUX Sep 14, 2016 17:14
--- NOTE | 2016-09-14 19:22 | Internal Med Progress Note ---
Subjective Date of Service: Sep 14, 2016 Physician Name Filiberto Clancy Attending Physician Harrison Delatorre Current Medications Medications (Trade) Dose Ordered Sig/Mark Route PRN Reason Start Time Stop Time Status Last Admin Dose Admin Acetaminophen (Tylenol) 650 mg Q4H PRN ORAL Mild Pain (Pain Scale 1-3) 09/06/16 23:00 10/06/16 22:59 09/14/16 11:56 Amlodipine Besylate (Norvasc) 10 mg DAILY ORAL 09/07/16 09:00 10/07/16 08:59 09/14/16 08:07 Chlorhexidine Gluconate 1 applic 1 applic DAILY TOPIC 09/10/16 03:30 10/10/16 03:29 09/14/16 08:08 Dextrose (Dextrose 50%) STAT PRN IV Hypoglycemia 09/06/16 23:00 10/06/16 22:59 Heparin Sodium (Porcine) (Heparin 5000 units/ml) 5,000 units EVERY 12 HOURS SUBQ 09/08/16 21:00 10/08/16 20:59 09/14/16 08:07 Insulin Aspart (NovoLOG) EVERY 6 HOURS SUBQ 09/07/16 18:00 10/07/16 17:59 09/14/16 18:04 Lorazepam 1 mg 1 mg Q1HR PRN IV For Seizure Activity 09/08/16 22:30 09/15/16 22:29 09/14/16 15:31 Midazolam HCl/ Dextrose (Versed/D5W) 100 ml @ 0 mls/hr Q24H IV 09/09/16 15:00 10/09/16 14:59 09/14/16 04:33 Minoxidil (Loniten) 15 mg BID ORAL 09/13/16 18:00 10/13/16 17:59 09/14/16 18:03 Phenytoin 200 mg/ Sodium Chloride 59 ml @ 114 mls/hr [id number] PHENYTOIN IVPB 09/10/16 16:00 10/10/16 15:59 09/14/16 15:54 Phenytoin 500 mg/ Sodium Chloride 120 ml @ 120 mls/hr POSTHD IVPB 09/11/16 15:00 10/11/16 14:59 09/13/16 21:19 Polyethylene Glycol (Miralax) 17 gm DAILYPRN PRN ORAL Constipation 09/06/16 23:00 10/06/16 22:59 Ranitidine HCl (Zantac) 150 mg BEDTIME ORAL 09/08/16 21:00 10/08/16 20:59 09/13/16 21:21 Valproate Sodium 1500 mg/Dextrose 70 ml @ 32.5 mls/hr Q12HR IV 09/11/16 21:00 10/11/16 20:59 09/13/16 22:30 Valproate Sodium/ Dextrose (Depacon Inj/D5W) 65 ml @ 32.5 mls/hr POSTHD IV 09/11/16 15:00 10/11/16 14:59 09/13/16 21:18 Allergies: Coded Allergies: NIACIN (Verified Allergy, Unknown, ITCHING, 01/30/12) ROS Limited/Unobtainable: Yes Subjective 71 YO M admitted with volume overload and respiratory failure. S/P cardiopulmonary arrest. ICU. Intubated and sedated. Cover for Int Brad-Dr [place]. Objective Last Vital Signs Date Time Temp Pulse Resp B/P Pulse Ox O2 Delivery O2 Flow Rate FiO2 09/14/16 19:00 90 23 118/37 98 Mechanical Ventilator 30 09/14/16 16:00 99.2 09/13/16 19:56 4.0 Laboratory Tests Test 09/14/16 04:00 Valproic Acid (Depakene) Level 77 ug/mL (50-100) Intake and Output 09/13/16 09/14/16 19:00 07:00 Intake Total 891 ml 1068 ml Output Total 0 ml 3300 ml Balance 891 ml -2232 ml Free Water 50 ml 150 ml IV Total 341 ml 438 ml Tube Feeding 440 ml 480 ml Other 60 ml Output Urine Total 0 ml 0 ml Hemodialysis UF 3300 ml # Bowel Movements 3 3 Objective General Appearance: WD/WN, lethargic EENT: PERRL/EOMI, normal ENT inspection, TMs normal Neck: non-tender, normal alignment, supple Cardiovascular: normal peripheral pulses, normal rate, regular rhythm, no gallop/murmur, no JVD Respiratory/Chest: Mech vent; chest wall non-tender, crackles/rales, rhonchi - bilaterally, expiratory wheezing Abdomen: normal bowel sounds, non tender, soft, no organomegaly Skin: normal pigmentation, warm/dry Assessment/Plan Problem List: (1) HTN (hypertension) Assessment & Plan: Cont amlodipine. (2) Hyperkalemia (3) Respiratory failure with hypoxia Assessment & Plan: Intubated and sedated. Cont vanco and zosyn per ID (4) ESRD (end stage renal disease) Assessment & Plan: See nephrology note. Last Hemodialysis 09/09/16 per nephrology (5) CHF (congestive heart failure) (6) Diabetes mellitus Assessment & Plan: Cont novolog sliding scale. 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 (9) Anoxic encephalopathy syndrome Assessment & Plan: See neruo note. Status: not improved Assessment/Plan Prognosis is poor. FILIBERTO CLANCY Sep 14, 2016 19:22
--- NOTE | 2016-09-14 20:22 | Pulmonolgy Critical Care Note ---
Critical Care - Asmt/Plan Assessment/Plan: 1. Status post cardiac arrest. 2. Renal failure with hyperkalemia. 3. Respiratory failure. 4. Anoxic encephalopathy. 5. Status epilepticus 6. Coronary artery disease. 7. History of cardiomyopathy. 8. Diabetes. 9. Hypertension. sedation as needed, versed and monitor for seizure activity--defer to neuro repeat EEG pending consider weaningif and when sedation is lifted, but may need trach if unable to wean or mentation does not improve nebs and suction monitor BP, pressors if MAP less than 65 mmhg wound care TF prognosis guarded DVT prophylaxis HD per renal continue abx cxr thursday greater than 235 minutes of critical care time spent with the patient, reviewing the records, dw nursing and plan for the day Critical Care - Objective Last 24 Hour Vital Signs Date Time Temp Pulse Resp B/P Pulse Ox O2 Delivery O2 Flow Rate FiO2 09/14/16 19:00 90 23 118/37 98 Mechanical Ventilator 30 09/14/16 18:57 90 15 30 09/14/16 18:30 92 23 168/49 98 Mechanical Ventilator 30 09/14/16 18:03 169/51 09/14/16 18:00 90 23 155/41 98 Mechanical Ventilator 30 09/14/16 17:30 89 23 168/48 98 Mechanical Ventilator 30 09/14/16 17:04 88 17 30 09/14/16 17:00 88 23 169/54 98 Mechanical Ventilator 30 09/14/16 16:30 90 23 155/41 98 Mechanical Ventilator 30 09/14/16 16:00 92 09/14/16 16:00 99.2 91 22 116/42 100 Mechanical Ventilator 30 09/14/16 16:00 30 09/14/16 15:30 87 26 102/35 98 Mechanical Ventilator 30 09/14/16 15:00 87 26 167/78 98 Mechanical Ventilator 30 09/14/16 14:40 88 14 30 09/14/16 14:30 87 26 161/40 98 Mechanical Ventilator 30 09/14/16 14:00 89 26 150/42 98 Mechanical Ventilator 30 09/14/16 13:30 87 26 124/38 98 Mechanical Ventilator 30 09/14/16 13:16 98.7 09/14/16 12:59 86 22 116/37 99 Mechanical Ventilator 30 09/14/16 12:49 85 15 30 09/14/16 12:30 87 22 138/42 99 Mechanical Ventilator 30 09/14/16 12:00 85 09/14/16 12:00 98.4 86 18 170/40 99 Mechanical Ventilator 30 09/14/16 12:00 30 09/14/16 11:30 86 18 121/36 99 Mechanical Ventilator 30 09/14/16 11:00 83 20 130/43 99 Mechanical Ventilator 30 09/14/16 10:53 88 21 30 09/14/16 10:30 85 20 101/34 99 Mechanical Ventilator 30 09/14/16 10:00 85 20 126/36 99 Mechanical Ventilator 30 09/14/16 09:30 86 20 134/41 99 Mechanical Ventilator 30 09/14/16 09:00 87 19 141/56 99 Mechanical Ventilator 30 09/14/16 08:50 86 14 30 09/14/16 08:30 86 21 145/39 99 Mechanical Ventilator 30 09/14/16 08:07 146/41 09/14/16 08:07 88 146/41 09/14/16 08:00 30 09/14/16 08:00 99.0 84 25 145/38 99 Mechanical Ventilator 30 09/14/16 08:00 86 09/14/16 07:30 83 23 146/40 99 Mechanical Ventilator 30 09/14/16 07:00 87 23 146/50 99 Mechanical Ventilator 30 09/14/16 06:57 89 19 30 09/14/16 06:30 88 23 167/50 99 Mechanical Ventilator 30 09/14/16 06:00 88 23 148/49 99 Mechanical Ventilator 30 09/14/16 05:30 90 23 119/54 99 Mechanical Ventilator 30 09/14/16 05:08 89 14 30 09/14/16 04:33 24 09/14/16 04:30 92 23 167/50 99 Mechanical Ventilator 30 09/14/16 04:00 89 23 161/49 99 Mechanical Ventilator 30 09/14/16 04:00 89 09/14/16 04:00 30 09/14/16 03:30 92 25 161/49 99 Mechanical Ventilator 30 09/14/16 03:04 89 17 30 09/14/16 03:00 91 25 126/43 99 Mechanical Ventilator 30 09/14/16 02:30 91 27 136/50 99 Mechanical Ventilator 30 09/14/16 02:00 89 27 136/50 99 Mechanical Ventilator 30 09/14/16 01:30 90 23 136/50 99 Mechanical Ventilator 30 09/14/16 01:00 93 23 140/45 99 Mechanical Ventilator 30 09/14/16 00:50 94 22 30 09/14/16 00:30 91 29 140/45 98 Mechanical Ventilator 30 09/14/16 00:00 98.9 94 29 134/43 98 Mechanical Ventilator 30 09/14/16 00:00 30 09/14/16 00:00 94 09/13/16 23:04 95 20 30 09/13/16 22:30 95 26 166/51 99 Mechanical Ventilator 30 09/13/16 22:00 94 26 165/51 99 Mechanical Ventilator 30 09/13/16 21:00 96 25 169/74 99 Mechanical Ventilator 30 09/13/16 20:59 97 22 30 09/13/16 20:30 95 27 144/57 99 Mechanical Ventilator 30 Status: obtunded Condition: critical Lungs: clear Heart: HR/BP stable Abdomen: soft, non-tender Extremities: edema Decubiti: stage Accucheck: 164 Blood Sugars: BS not controlled Critical Care - Subjective ROS Limited/Unobtainable: Yes Condition: critical FI02: 30 Vent Support Breath Rate: 12 Vent Support Mode: AC Vent Tidal Volume: 500 Sputum Amount: Moderate PIP: 29 Tube Feeding Amount: 40 I&O: Intake and Output 09/13/16 09/14/16 19:00 07:00 Intake Total 891 ml 1068 ml Output Total 0 ml 3300 ml Balance 891 ml -2232 ml Free Water 50 ml 150 ml IV Total 341 ml 438 ml Tube Feeding 440 ml 480 ml Other 60 ml Output Urine Total 0 ml 0 ml Hemodialysis UF 3300 ml # Bowel Movements 3 3 Subjective: obtunded on the vent rr set 12 breathing 20 bp stable no visible seizure activity tolerating tf no pressors sedated at this time ET-Tube: 8.0 ET Position: 24 Labs: Laboratory Tests Test 09/14/16 04:00 Valproic Acid (Depakene) Level 77 ug/mL (50-100) KOLTON RENTERIA DO Sep 14, 2016 20:22
[2016-09-14] MEDS: VALPROATE SODIUM IV SCH (20:59)
[2016-09-14 21:25] LABS: LEVETIRACETAM (KEPPRA) None Detected ug/mL (10.0-40.0)
--- NOTE | 2016-09-14 22:45 | Cardiology Report ---
APPROVED REPORT EKG Measurement Heart [id number] CO [id number] Normal sinus rhythm Possible Left atrial enlargement Abnormal ECG
[2016-09-15] VITALS (23 sets, daily range): BP systolic 90–172; BP diastolic 26–68
[2016-09-15 05:32] LABS: BASOPHILS % (AUTO) 1.8 % (0.0-2.0); EOSINOPHILS % (AUTO) 5.8 % (0.0-3.0); LYMPHOCYTES % (AUTO) 10.4 % (20.0-45.0); MEAN CORPUSCULAR HEMOGLOBIN 29.9 PG (27.0-31.0); MEAN CORPUSCULAR HGB CONC 31.7 G/DL (32.0-36.0); MEAN CORPUSCULAR VOLUME 94 FL (80-99); MEAN PLATELET VOLUME 6.9 FL (6.5-10.1); MONOCYTES % (AUTO) 9.7 % (1.0-10.0); NEUTROPHILS % (AUTO) 72.3 % (45.0-75.0); PLATELET COUNT 275 K/UL (150-450); RED BLOOD COUNT 3.73 M/UL (4.70-6.10); RED CELL DISTRIBUTION WIDTH 16.3 % (11.6-14.8); WHITE BLOOD COUNT 10.9 K/UL (4.8-10.8)
[2016-09-15] MEDS: NovoLOG Insulin Flexpen SUBQ SCH ×3 (05:46→18:01)
[2016-09-15 05:58] LABS: CALCIUM 10.2 mg/dL (8.6-10.2); CREATININE 6.9 mg/dL (0.7-1.2); POTASSIUM 3.2 mEQ/L (3.4-4.9)
[2016-09-15] MEDS: Phenytoin 200 MG in NS 55 ML IVPB SCH ×3 (08:24→23:59)
[2016-09-15] MEDS: D5W IV SCH ×2 (08:24→21:04)
[2016-09-15] MEDS: VALPROATE SODIUM IV SCH ×2 (08:24→21:04)
[2016-09-15] MEDS: Dyna-Hex 2% Top Sol 8oz TOPIC SCH (08:24)
[2016-09-15] MEDS: Minoxidil 10mg tab ORAL SCH (08:25)
[2016-09-15] MEDS: Heparin 5000 units/ml inj SUBQ SCH ×2 (08:27→21:00)
--- NOTE | 2016-09-15 09:10 | Diagnostic Imaging Report ---
Indication: Dyspnea Comparison: 09/07/16 A single view chest radiograph was obtained. Findings: Tubes and lines are stable. The heart is enlarged but stable. Lungs are better inflated. Mild interstitial edema is likely present currently. Vague density over the right lung which may be consolidation/airspace disease has resolved in the interval Impression: Mild interstitial edema suspected currently.
--- NOTE | 2016-09-15 10:21 | Critical Care Progress Note ---
Assessment/Plan Assessment/Plan 1. Status post cardiac arrest. 2. Renal failure with hyperkalemia. 3. Respiratory failure. 4. Anoxic encephalopathy. 5. Status epilepticus 6. Coronary artery disease. 7. History of cardiomyopathy. 8. Diabetes. 9. Hypertension. off Versed drip has spontaneous TV 250 cc but RR 30 disc w RN prognosis guarded cannot wean with poor MS and excess secretions CXR without pneumonia Critical Care - Subjective ROS Limited/Unobtainable: Yes Condition: critical EKG Rhythm: Sinus Rhythm I&O: Intake and Output 09/14/16 09/15/16 19:00 07:00 Intake Total 1790 ml 759 ml Output Total 0 ml 0 ml Balance 1790 ml 759 ml Free Water 0 ml 150 ml IV Total 1310 ml 129 ml Tube Feeding 480 ml 480 ml Output Urine Total 0 ml 0 ml # Bowel Movements 3 4 Critical Care - Objective ET-Tube: 8.0 ET Position: 24 Last 24 Hour Vital Signs Date Time Temp Pulse Resp B/P Pulse Ox O2 Delivery O2 Flow Rate FiO2 09/15/16 08:46 94 22 30 09/15/16 08:25 165/52 09/15/16 08:25 93 165/52 09/15/16 08:00 99.0 92 22 165/52 99 Mechanical Ventilator 30 09/15/16 08:00 30 09/15/16 07:09 92 17 30 09/15/16 06:00 94 21 172/50 99 Mechanical Ventilator 30 09/15/16 05:06 92 16 30 09/15/16 05:00 92 15 114/40 98 Mechanical Ventilator 30 09/15/16 04:00 30 09/15/16 04:00 95 09/15/16 04:00 98.8 95 15 128/35 97 Mechanical Ventilator 30 09/15/16 03:15 98 20 30 09/15/16 03:00 92 17 109/36 96 Mechanical Ventilator 30 09/15/16 02:00 95 21 121/44 98 Mechanical Ventilator 30 09/15/16 01:23 95 26 30 09/15/16 01:00 90 16 101/37 97 Mechanical Ventilator 30 09/15/16 00:00 30 09/15/16 00:00 86 09/15/16 00:00 86 17 125/36 98 Mechanical Ventilator 30 09/14/16 23:04 95 19 30 09/14/16 23:00 94 20 177/48 99 Mechanical Ventilator 30 09/14/16 22:00 93 20 166/51 99 Mechanical Ventilator 30 09/14/16 21:22 90 16 30 09/14/16 21:06 16 09/14/16 21:00 93 19 147/41 99 Mechanical Ventilator 30 09/14/16 20:00 30 09/14/16 20:00 89 09/14/16 20:00 98.7 90 16 130/41 98 Mechanical Ventilator 30 09/14/16 19:00 90 23 118/37 98 Mechanical Ventilator 30 09/14/16 18:57 90 15 30 09/14/16 18:30 92 23 168/49 98 Mechanical Ventilator 30 09/14/16 18:03 169/51 09/14/16 18:00 90 23 155/41 98 Mechanical Ventilator 30 09/14/16 17:30 89 23 168/48 98 Mechanical Ventilator 30 09/14/16 17:04 88 17 30 09/14/16 17:00 88 23 169/54 98 Mechanical Ventilator 30 09/14/16 16:30 90 23 155/41 98 Mechanical Ventilator 30 09/14/16 16:00 92 09/14/16 16:00 99.2 91 22 116/42 100 Mechanical Ventilator 30 09/14/16 16:00 30 09/14/16 15:30 87 26 102/35 98 Mechanical Ventilator 30 09/14/16 15:00 87 26 167/78 98 Mechanical Ventilator 30 09/14/16 14:40 88 14 30 09/14/16 14:30 87 26 161/40 98 Mechanical Ventilator 30 09/14/16 14:00 89 26 150/42 98 Mechanical Ventilator 30 09/14/16 13:30 87 26 124/38 98 Mechanical Ventilator 30 09/14/16 13:16 98.7 09/14/16 12:59 86 22 116/37 99 Mechanical Ventilator 30 09/14/16 12:49 85 15 30 09/14/16 12:30 87 22 138/42 99 Mechanical Ventilator 30 09/14/16 12:00 85 09/14/16 12:00 98.4 86 18 170/40 99 Mechanical Ventilator 30 09/14/16 12:00 30 09/14/16 11:30 86 18 121/36 99 Mechanical Ventilator 30 09/14/16 11:00 83 20 130/43 99 Mechanical Ventilator 30 09/14/16 10:53 88 21 30 09/14/16 10:30 85 20 101/34 99 Mechanical Ventilator 30 Status: obtunded HEENT: atraumatic Lungs: clear Heart: normal rate Abdomen: non-tender Objective: seizures vs myoclonus Accucheck: CHLOE LOPEZ Sep 15, 2016 10:20
[2016-09-15] MEDS ORDERED: Tubing IV Secondary IV ONE (11:06)
--- NOTE | 2016-09-15 11:42 | Neurology Progress Note ---
Interim History Interim History ROS Limited/Unobtainable: Yes Complaints: coma Events: off versed, nosz noted Objective Physical Exam Last Vital Signs Date Time Temp Pulse Resp B/P Pulse Ox O2 Delivery O2 Flow Rate FiO2 09/15/16 11:24 94 28 30 09/15/16 08:25 165/52 09/15/16 08:00 99.0 99 Mechanical Ventilator 09/13/16 19:56 4.0 Laboratory Tests Test 09/15/16 04:00 White Blood Count 10.9 K/UL (4.8-10.8) H Red Blood Count 3.73 M/UL (4.70-6.10) L Hemoglobin 11.1 G/DL (14.2-18.0) L Hematocrit 35.1 % (42.0-52.0) L Mean Corpuscular Volume 94 FL (80-99) Mean Corpuscular Hemoglobin 29.9 PG (27.0-31.0) Mean Corpuscular Hemoglobin Concent 31.7 G/DL (32.0-36.0) L Red Cell Distribution Width 16.3 % (11.6-14.8) H Platelet Count 275 K/UL (150-450) Mean Platelet Volume 6.9 FL (6.5-10.1) Neutrophils (%) (Auto) 72.3 % (45.0-75.0) Lymphocytes (%) (Auto) 10.4 % (20.0-45.0) L Monocytes (%) (Auto) 9.7 % (1.0-10.0) Eosinophils (%) (Auto) 5.8 % (0.0-3.0) H Basophils (%) (Auto) 1.8 % (0.0-2.0) Sodium Level 146 mEQ/L (135-145) H Potassium Level 3.2 mEQ/L (3.4-4.9) L Chloride Level 95 mEQ/L (98-107) L Carbon Dioxide Level 27 mEQ/L (20-30) Anion Gap 24 (5-15) H Blood Urea Nitrogen 56 mg/dL (7-23) H Creatinine 6.9 mg/dL (0.7-1.2) H Estimat Glomerular Filtration Rate 8.0 mL/min (>60) Glucose Level 228 mg/dL (74-106) H Calcium Level 10.2 mg/dL (8.6-10.2) Phenytoin (Dilantin) Level 12.4 ug/mL (10-20) Valproic Acid (Depakene) Level 52 ug/mL (50-100) General: no acute distress, other - intubated no twitching noted Head: atraumatic Neck: other - rigid Neurologic Exam Mental Status: other - comatose, verbally unresponcive, noted spontan lifting both arms Speech: other Language: other Cranial Nerve II: no papilledema Cranial Nerves III, IV, : other - p 2mm sluggish aom-minor on doll,s Cranial Nerve V: other - +corneal Cranial Nerve VII: no facial asymmetry Cranial Nerve VIII: other Cranial Nerve IX: other - poor gag on suction Cranial Nerve XI: other Cranial Nerve XII: tongue midline Motor System: other - flaccid, some spont movement arms Sensory: other Coordination: other Deep Tendon Reflexes: 0 ankle (L), 0 ankle (R), 0 knee (L), 0 knee (R), 1+ bicep (R), 1+ brachioradialis (R), 1+ tricep (L), 1+ tricep (R), 2+ bicep (L), 2 + brachioradialis (L) Reflexes: mute plantar (L), mute plantar (R) Impression/Recommendations Problems: (1) 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
--- NOTE | 2016-09-15 11:50 | Infectious Diseases Prog Note ---
Assessment/Plan Assessment/Plan antibiotics : none A 1. pneumonia s/p rx 2. respiratory failure 3. renal failure 4. leucocytosis improving 5. s/p cardiac arrest P 1. continue off antibiotics Subjective ROS Limited/Unobtainable: Yes Allergies: Coded Allergies: NIACIN (Verified Allergy, Unknown, ITCHING, 01/30/12) Objective Vital Signs Last 24 Hour Vital Signs Date Time Temp Pulse Resp B/P Pulse Ox O2 Delivery O2 Flow Rate FiO2 09/15/16 11:24 94 28 30 09/15/16 08:46 94 22 30 09/15/16 08:25 165/52 09/15/16 08:25 93 165/52 09/15/16 08:00 99.0 92 22 165/52 99 Mechanical Ventilator 30 09/15/16 08:00 30 09/15/16 07:09 92 17 30 09/15/16 06:00 94 21 172/50 99 Mechanical Ventilator 30 09/15/16 05:06 92 16 30 09/15/16 05:00 92 15 114/40 98 Mechanical Ventilator 30 09/15/16 04:00 30 09/15/16 04:00 95 09/15/16 04:00 98.8 95 15 128/35 97 Mechanical Ventilator 30 09/15/16 03:15 98 20 30 09/15/16 03:00 92 17 109/36 96 Mechanical Ventilator 30 09/15/16 02:00 95 21 121/44 98 Mechanical Ventilator 30 09/15/16 01:23 95 26 30 09/15/16 01:00 90 16 101/37 97 Mechanical Ventilator 30 09/15/16 00:00 30 09/15/16 00:00 86 09/15/16 00:00 86 17 125/36 98 Mechanical Ventilator 30 09/14/16 23:04 95 19 30 09/14/16 23:00 94 20 177/48 99 Mechanical Ventilator 30 09/14/16 22:00 93 20 166/51 99 Mechanical Ventilator 30 09/14/16 21:22 90 16 30 09/14/16 21:06 16 09/14/16 21:00 93 19 147/41 99 Mechanical Ventilator 30 09/14/16 20:00 30 09/14/16 20:00 89 09/14/16 20:00 98.7 90 16 130/41 98 Mechanical Ventilator 30 09/14/16 19:00 90 23 118/37 98 Mechanical Ventilator 30 09/14/16 18:57 90 15 30 09/14/16 18:30 92 23 168/49 98 Mechanical Ventilator 30 09/14/16 18:03 169/51 09/14/16 18:00 90 23 155/41 98 Mechanical Ventilator 30 09/14/16 17:30 89 23 168/48 98 Mechanical Ventilator 30 09/14/16 17:04 88 17 30 09/14/16 17:00 88 23 169/54 98 Mechanical Ventilator 30 09/14/16 16:30 90 23 155/41 98 Mechanical Ventilator 30 09/14/16 16:00 92 09/14/16 16:00 99.2 91 22 116/42 100 Mechanical Ventilator 30 09/14/16 16:00 30 09/14/16 15:30 87 26 102/35 98 Mechanical Ventilator 30 09/14/16 15:00 87 26 167/78 98 Mechanical Ventilator 30 09/14/16 14:40 88 14 30 09/14/16 14:30 87 26 161/40 98 Mechanical Ventilator 30 09/14/16 14:00 89 26 150/42 98 Mechanical Ventilator 30 09/14/16 13:30 87 26 124/38 98 Mechanical Ventilator 30 09/14/16 13:16 98.7 09/14/16 12:59 86 22 116/37 99 Mechanical Ventilator 30 09/14/16 12:49 85 15 30 09/14/16 12:30 87 22 138/42 99 Mechanical Ventilator 30 09/14/16 12:00 85 09/14/16 12:00 98.4 86 18 170/40 99 Mechanical Ventilator 30 09/14/16 12:00 30 Height (Feet): 5 Height (Inches): 6.00 Weight (Pounds): 172 HEENT: other - intubated Respiratory/Chest: lungs clear Cardiovascular: normal rate, regular rhythm, no gallop/murmur Abdomen: soft, non tender Extremities: no edema, other - right groin catheter Microbiology Date/Time Source Procedure Growth Status 09/15/16 08:30 Stool Clostridium difficile Toxin Assay - Final Complete Laboratory Tests Test 09/15/16 04:00 White Blood Count 10.9 K/UL (4.8-10.8) H Red Blood Count 3.73 M/UL (4.70-6.10) L Hemoglobin 11.1 G/DL (14.2-18.0) L Hematocrit 35.1 % (42.0-52.0) L Mean Corpuscular Volume 94 FL (80-99) Mean Corpuscular Hemoglobin 29.9 PG (27.0-31.0) Mean Corpuscular Hemoglobin Concent 31.7 G/DL (32.0-36.0) L Red Cell Distribution Width 16.3 % (11.6-14.8) H Platelet Count 275 K/UL (150-450) Mean Platelet Volume 6.9 FL (6.5-10.1) Neutrophils (%) (Auto) 72.3 % (45.0-75.0) Lymphocytes (%) (Auto) 10.4 % (20.0-45.0) L Monocytes (%) (Auto) 9.7 % (1.0-10.0) Eosinophils (%) (Auto) 5.8 % (0.0-3.0) H Basophils (%) (Auto) 1.8 % (0.0-2.0) Sodium Level 146 mEQ/L (135-145) H Potassium Level 3.2 mEQ/L (3.4-4.9) L Chloride Level 95 mEQ/L (98-107) L Carbon Dioxide Level 27 mEQ/L (20-30) Anion Gap 24 (5-15) H Blood Urea Nitrogen 56 mg/dL (7-23) H Creatinine 6.9 mg/dL (0.7-1.2) H Estimat Glomerular Filtration Rate 8.0 mL/min (>60) Glucose Level 228 mg/dL (74-106) H Calcium Level 10.2 mg/dL (8.6-10.2) Phenytoin (Dilantin) Level 12.4 ug/mL (10-20) Valproic Acid (Depakene) Level 52 ug/mL (50-100) LEWIS ADAMS Sep 15, 2016 11:50
--- NOTE | 2016-09-15 12:24 | Nephrology Progress Note ---
Assessment/Plan Problem List: (1) ESRD (end stage renal disease) (2) Anoxic encephalopathy syndrome (3) Respiratory failure with hypoxia (4) CHF (congestive heart failure) (5) HTN (hypertension) Plan HD on thursday EEG off versed Vent support Discussed with RN follow labs TF on hold GI consult Subjective Subjective remains intubated not tolerating TF Objective Objective Last 24 Hour Vital Signs Date Time Temp Pulse Resp B/P Pulse Ox O2 Delivery O2 Flow Rate FiO2 09/15/16 12:00 99.3 95 25 102/35 97 Mechanical Ventilator 30 09/15/16 12:00 30 09/15/16 11:24 94 28 30 09/15/16 11:00 94 21 148/58 96 Mechanical Ventilator 30 09/15/16 10:00 93 21 91/26 97 Mechanical Ventilator 30 09/15/16 09:00 95 21 167/68 98 Mechanical Ventilator 30 09/15/16 08:46 94 22 30 09/15/16 08:25 165/52 09/15/16 08:25 93 165/52 09/15/16 08:00 99.0 92 22 165/52 99 Mechanical Ventilator 30 09/15/16 08:00 30 09/15/16 07:09 92 17 30 09/15/16 06:00 94 21 172/50 99 Mechanical Ventilator 30 09/15/16 05:06 92 16 30 09/15/16 05:00 92 15 114/40 98 Mechanical Ventilator 30 09/15/16 04:00 30 09/15/16 04:00 95 09/15/16 04:00 98.8 95 15 128/35 97 Mechanical Ventilator 30 09/15/16 03:15 98 20 30 09/15/16 03:00 92 17 109/36 96 Mechanical Ventilator 30 09/15/16 02:00 95 21 121/44 98 Mechanical Ventilator 30 09/15/16 01:23 95 26 30 09/15/16 01:00 90 16 101/37 97 Mechanical Ventilator 30 09/15/16 00:00 30 09/15/16 00:00 86 09/15/16 00:00 86 17 125/36 98 Mechanical Ventilator 30 09/14/16 23:04 95 19 30 09/14/16 23:00 94 20 177/48 99 Mechanical Ventilator 30 09/14/16 22:00 93 20 166/51 99 Mechanical Ventilator 30 09/14/16 21:22 90 16 30 09/14/16 21:06 16 09/14/16 21:00 93 19 147/41 99 Mechanical Ventilator 30 09/14/16 20:00 30 09/14/16 20:00 89 09/14/16 20:00 98.7 90 16 130/41 98 Mechanical Ventilator 30 09/14/16 19:00 90 23 118/37 98 Mechanical Ventilator 30 09/14/16 18:57 90 15 30 09/14/16 18:30 92 23 168/49 98 Mechanical Ventilator 30 09/14/16 18:03 169/51 09/14/16 18:00 90 23 155/41 98 Mechanical Ventilator 30 09/14/16 17:30 89 23 168/48 98 Mechanical Ventilator 30 09/14/16 17:04 88 17 30 09/14/16 17:00 88 23 169/54 98 Mechanical Ventilator 30 09/14/16 16:30 90 23 155/41 98 Mechanical Ventilator 30 09/14/16 16:00 92 09/14/16 16:00 99.2 91 22 116/42 100 Mechanical Ventilator 30 09/14/16 16:00 30 09/14/16 15:30 87 26 102/35 98 Mechanical Ventilator 30 09/14/16 15:00 87 26 167/78 98 Mechanical Ventilator 30 09/14/16 14:40 88 14 30 09/14/16 14:30 87 26 161/40 98 Mechanical Ventilator 30 09/14/16 14:00 89 26 150/42 98 Mechanical Ventilator 30 09/14/16 13:30 87 26 124/38 98 Mechanical Ventilator 30 09/14/16 13:16 98.7 09/14/16 12:59 86 22 116/37 99 Mechanical Ventilator 30 09/14/16 12:49 85 15 30 09/14/16 12:30 87 22 138/42 99 Mechanical Ventilator 30 Intake and Output 09/14/16 09/15/16 19:00 07:00 Intake Total 1790 ml 759 ml Output Total 0 ml 0 ml Balance 1790 ml 759 ml Free Water 0 ml 150 ml IV Total 1310 ml 129 ml Tube Feeding 480 ml 480 ml Output Urine Total 0 ml 0 ml # Bowel Movements 3 4 Laboratory Tests 09/15/16 04:00: White Blood Count 10.9H, Red Blood Count 3.73L, Hemoglobin 11.1L, Hematocrit 35.1L, Mean Corpuscular Volume 94, Mean Corpuscular Hemoglobin 29.9, Mean Corpuscular Hemoglobin Concent 31.7L, Red Cell Distribution Width 16.3H, Platelet Count 275, Mean Platelet Volume 6.9, Neutrophils (%) (Auto) 72.3, Lymphocytes (%) (Auto) 10.4L, Monocytes (%) (Auto) 9.7, Eosinophils (%) (Auto) 5.8H, Basophils (%) (Auto) 1.8, Sodium Level 146H, Potassium Level 3.2L, Chloride Level 95L, Carbon Dioxide Level 27, Anion Gap 24H, Blood Urea Nitrogen 56H, Creatinine 6.9H, Estimat Glomerular Filtration Rate 8.0, Glucose Level 228H , Calcium Level 10.2, Phenytoin (Dilantin) Level 12.4, Valproic Acid (Depakene) Level 52 Height (Feet): 5 Height (Inches): 6.00 Weight (Pounds): 172 Cardiovascular: normal rate Respiratory/Chest: rhonchi - bilaterally Extremities: other - no edema CANDICE BREAUX Sep 15, 2016 12:24
[2016-09-15] MEDS: Minoxidil 10mg tab GT SCH (18:03)
[2016-09-15] MEDS ORDERED: Valproate Sodium INJ 1,000 MG in D5W 55 ML IV SCH (18:30)
--- NOTE | 2016-09-15 19:07 | Cardiology Progress Note ---
Assessment/Plan Assessment/Plan cardiopulm arrest anoxic encephalopathy esrd on hd noncompliant with dialysis htn chronic diastolic failure hx cad status epilepticus telel neg sinus rare pvc on the vent dialysis as planned moves left upper ext spont bp seem better d/w rn d/w family Subjective ROS Limited/Unobtainable: Yes Subjective on verntnot responsive except to noxious stimuli grimaces Objective Last 24 Hour Vital Signs Date Time Temp Pulse Resp B/P Pulse Ox O2 Delivery O2 Flow Rate FiO2 09/15/16 18:03 143/50 09/15/16 18:00 100.3 98 20 124/43 98 Mechanical Ventilator 30 09/15/16 17:25 96 17 30 09/15/16 17:00 98 20 139/48 97 Mechanical Ventilator 30 09/15/16 16:00 30 09/15/16 16:00 100.4 100 18 146/47 97 Mechanical Ventilator 30 09/15/16 16:00 100 09/15/16 15:00 100 18 151/45 97 Mechanical Ventilator 30 09/15/16 14:57 99 21 30 09/15/16 14:00 95 21 144/44 99 Mechanical Ventilator 30 09/15/16 13:09 98 20 30 09/15/16 13:00 94 22 90/34 100 Mechanical Ventilator 30 09/15/16 12:00 99.3 95 25 102/35 97 Mechanical Ventilator 30 09/15/16 12:00 90 09/15/16 12:00 30 09/15/16 11:24 94 28 30 09/15/16 11:00 94 21 148/58 96 Mechanical Ventilator 30 09/15/16 10:00 93 21 91/26 97 Mechanical Ventilator 30 09/15/16 09:00 95 21 167/68 98 Mechanical Ventilator 30 09/15/16 08:46 94 22 30 09/15/16 08:25 165/52 09/15/16 08:25 93 165/52 09/15/16 08:00 99.0 92 22 165/52 99 Mechanical Ventilator 30 09/15/16 08:00 30 09/15/16 08:00 92 09/15/16 07:09 92 17 30 09/15/16 06:00 94 21 172/50 99 Mechanical Ventilator 30 09/15/16 05:06 92 16 30 09/15/16 05:00 92 15 114/40 98 Mechanical Ventilator 30 09/15/16 04:00 30 09/15/16 04:00 95 09/15/16 04:00 98.8 95 15 128/35 97 Mechanical Ventilator 30 09/15/16 03:15 98 20 30 09/15/16 03:00 92 17 109/36 96 Mechanical Ventilator 30 09/15/16 02:00 95 21 121/44 98 Mechanical Ventilator 30 09/15/16 01:23 95 26 30 09/15/16 01:00 90 16 101/37 97 Mechanical Ventilator 30 09/15/16 00:00 30 09/15/16 00:00 86 09/15/16 00:00 86 17 125/36 98 Mechanical Ventilator 30 09/14/16 23:04 95 19 30 09/14/16 23:00 94 20 177/48 99 Mechanical Ventilator 30 09/14/16 22:00 93 20 166/51 99 Mechanical Ventilator 30 09/14/16 21:22 90 16 30 09/14/16 21:06 16 09/14/16 21:00 93 19 147/41 99 Mechanical Ventilator 30 09/14/16 20:00 30 09/14/16 20:00 89 09/14/16 20:00 98.7 90 16 130/41 98 Mechanical Ventilator 30 General Appearance: on vent Cardiovascular: normal rate, regular rhythm, systolic murmur Respiratory/Chest: lungs clear, normal breath sounds Abdomen: normal bowel sounds, non tender, soft Extremities: no swelling Intake and Output 09/14/16 09/15/16 19:00 07:00 Intake Total 1790 ml 759 ml Output Total 0 ml 0 ml Balance 1790 ml 759 ml Free Water 0 ml 150 ml IV Total 1310 ml 129 ml Tube Feeding 480 ml 480 ml Output Urine Total 0 ml 0 ml # Bowel Movements 3 4 Laboratory Tests Test 09/15/16 04:00 White Blood Count 10.9 K/UL (4.8-10.8) H Red Blood Count 3.73 M/UL (4.70-6.10) L Hemoglobin 11.1 G/DL (14.2-18.0) L Hematocrit 35.1 % (42.0-52.0) L Mean Corpuscular Volume 94 FL (80-99) Mean Corpuscular Hemoglobin 29.9 PG (27.0-31.0) Mean Corpuscular Hemoglobin Concent 31.7 G/DL (32.0-36.0) L Red Cell Distribution Width 16.3 % (11.6-14.8) H Platelet Count 275 K/UL (150-450) Mean Platelet Volume 6.9 FL (6.5-10.1) Neutrophils (%) (Auto) 72.3 % (45.0-75.0) Lymphocytes (%) (Auto) 10.4 % (20.0-45.0) L Monocytes (%) (Auto) 9.7 % (1.0-10.0) Eosinophils (%) (Auto) 5.8 % (0.0-3.0) H Basophils (%) (Auto) 1.8 % (0.0-2.0) Sodium Level 146 mEQ/L (135-145) H Potassium Level 3.2 mEQ/L (3.4-4.9) L Chloride Level 95 mEQ/L (98-107) L Carbon Dioxide Level 27 mEQ/L (20-30) Anion Gap 24 (5-15) H Blood Urea Nitrogen 56 mg/dL (7-23) H Creatinine 6.9 mg/dL (0.7-1.2) H Estimat Glomerular Filtration Rate 8.0 mL/min (>60) Glucose Level 228 mg/dL (74-106) H Calcium Level 10.2 mg/dL (8.6-10.2) Phenytoin (Dilantin) Level 12.4 ug/mL (10-20) Valproic Acid (Depakene) Level 52 ug/mL (50-100) Microbiology Date/Time Source Procedure Growth Status 09/15/16 08:30 Stool Clostridium difficile Toxin Assay - Final Complete HUSSEIN CAGE 12, 2017 19:07
--- NOTE | 2016-09-15 19:19 | Internal Med Progress Note ---
Subjective Date of Service: Sep 15, 2016 Physician Name Filiberto Clancy Attending Physician Harrison Delatorre Current Medications Medications (Trade) Dose Ordered Sig/Mark Route PRN Reason Start Time Stop Time Status Last Admin Dose Admin Acetaminophen (Tylenol) 650 mg Q4H PRN ORAL Mild Pain (Pain Scale 1-3) 09/06/16 23:00 10/06/16 22:59 09/15/16 18:01 Amlodipine Besylate (Norvasc) 10 mg DAILY GT 09/15/16 10:56 10/07/16 08:59 Chlorhexidine Gluconate 1 applic 1 applic DAILY TOPIC 09/10/16 03:30 10/10/16 03:29 09/15/16 08:24 Dextrose (Dextrose 50%) STAT PRN IV Hypoglycemia 09/06/16 23:00 10/06/16 22:59 Heparin Sodium (Porcine) (Heparin 5000 units/ml) 5,000 units EVERY 12 HOURS SUBQ 09/08/16 21:00 10/08/16 20:59 09/15/16 08:27 Heparin Sodium (Porcine) 2000 unit 2,000 unit ONCE PRN IV FOR HD USE 09/16/16 06:00 09/16/16 23:59 Insulin Aspart (NovoLOG) EVERY 6 HOURS SUBQ 09/07/16 18:00 10/07/16 17:59 09/15/16 18:01 Lorazepam 1 mg 1 mg Q1HR PRN IV For Seizure Activity 09/08/16 22:30 09/15/16 22:29 09/14/16 15:31 Midazolam HCl/ Dextrose (Versed/D5W) 100 ml @ 0 mls/hr Q24H IV 09/09/16 15:00 10/09/16 14:59 09/14/16 21:06 Minoxidil (Loniten) 15 mg BID GT 09/15/16 10:57 10/13/16 17:59 09/15/16 18:03 Phenytoin 200 mg/ Sodium Chloride 59 ml @ 114 mls/hr [id number] PHENYTOIN IVPB 09/10/16 16:00 10/10/16 15:59 09/15/16 16:00 Phenytoin/Sodium Chloride (Dilantin/Sodium Chloride) 120 ml @ 120 mls/hr POSTHD IVPB 09/11/16 15:00 10/11/16 14:59 09/13/16 21:19 Polyethylene Glycol (Miralax) 17 gm DAILYPRN PRN ORAL Constipation 09/06/16 23:00 10/06/16 22:59 Ranitidine HCl 150 mg 150 mg BEDTIME GT 09/15/16 10:57 10/08/16 20:59 Sodium Chloride (Sodium Chloride 1000ml bag) 1,000 ml @ 500 mls/hr Q2H PRN IVLG sbp<90 during hd 09/16/16 06:00 09/16/16 23:59 Valproate Sodium 1500 mg/Dextrose 70 ml @ 32.5 mls/hr Q12HR IV 09/11/16 21:00 10/11/16 20:59 09/15/16 08:24 Valproate Sodium/ Dextrose (Depacon Inj/D5W) 65 ml @ 32.5 mls/hr POSTHD IV 09/15/16 18:30 10/15/16 18:29 Allergies: Coded Allergies: NIACIN (Verified Allergy, Unknown, ITCHING, 01/30/12) ROS Limited/Unobtainable: Yes Subjective 71 YO M admitted with volume overload and respiratory failure. S/P cardiopulmonary arrest. ICU. Intubated and sedated. Cover for Int Brad-Dr [place]. Objective Last Vital Signs Date Time Temp Pulse Resp B/P Pulse Ox O2 Delivery O2 Flow Rate FiO2 09/15/16 18:03 143/50 09/15/16 18:00 100.3 98 20 98 Mechanical Ventilator 30 09/13/16 19:56 4.0 Laboratory Tests Test 09/15/16 04:00 White Blood Count 10.9 K/UL (4.8-10.8) H Red Blood Count 3.73 M/UL (4.70-6.10) L Hemoglobin 11.1 G/DL (14.2-18.0) L Hematocrit 35.1 % (42.0-52.0) L Mean Corpuscular Volume 94 FL (80-99) Mean Corpuscular Hemoglobin 29.9 PG (27.0-31.0) Mean Corpuscular Hemoglobin Concent 31.7 G/DL (32.0-36.0) L Red Cell Distribution Width 16.3 % (11.6-14.8) H Platelet Count 275 K/UL (150-450) Mean Platelet Volume 6.9 FL (6.5-10.1) Neutrophils (%) (Auto) 72.3 % (45.0-75.0) Lymphocytes (%) (Auto) 10.4 % (20.0-45.0) L Monocytes (%) (Auto) 9.7 % (1.0-10.0) Eosinophils (%) (Auto) 5.8 % (0.0-3.0) H Basophils (%) (Auto) 1.8 % (0.0-2.0) Sodium Level 146 mEQ/L (135-145) H Potassium Level 3.2 mEQ/L (3.4-4.9) L Chloride Level 95 mEQ/L (98-107) L Carbon Dioxide Level 27 mEQ/L (20-30) Anion Gap 24 (5-15) H Blood Urea Nitrogen 56 mg/dL (7-23) H Creatinine 6.9 mg/dL (0.7-1.2) H Estimat Glomerular Filtration Rate 8.0 mL/min (>60) Glucose Level 228 mg/dL (74-106) H Calcium Level 10.2 mg/dL (8.6-10.2) Phenytoin (Dilantin) Level 12.4 ug/mL (10-20) Valproic Acid (Depakene) Level 52 ug/mL (50-100) Microbiology Date/Time Source Procedure Growth Status 09/15/16 08:30 Stool Clostridium difficile Toxin Assay - Final Complete Intake and Output 09/14/16 09/15/16 19:00 07:00 Intake Total 1790 ml 759 ml Output Total 0 ml 0 ml Balance 1790 ml 759 ml Free Water 0 ml 150 ml IV Total 1310 ml 129 ml Tube Feeding 480 ml 480 ml Output Urine Total 0 ml 0 ml # Bowel Movements 3 4 Objective General Appearance: WD/WN, lethargic EENT: PERRL/EOMI, normal ENT inspection, TMs normal Neck: non-tender, normal alignment, supple Cardiovascular: normal peripheral pulses, normal rate, regular rhythm, no gallop/murmur, no JVD Respiratory/Chest: Mech vent; chest wall non-tender, crackles/rales, rhonchi - bilaterally, expiratory wheezing Abdomen: normal bowel sounds, non tender, soft, no organomegaly Skin: normal pigmentation, warm/dry Assessment/Plan Problem List: (1) HTN (hypertension) Assessment & Plan: Cont amlodipine. (2) Hyperkalemia (3) Respiratory failure with hypoxia Assessment & Plan: Intubated and sedated. Cont vanco and zosyn per ID (4) ESRD (end stage renal disease) Assessment & Plan: See nephrology note. Next Hemodialysis 09/16/16 per nephrology (5) CHF (congestive heart failure) (6) Diabetes mellitus Assessment & Plan: Cont novolog sliding scale. 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 (9) Anoxic encephalopathy syndrome Assessment & Plan: See neruo note. Status: not improved Assessment/Plan Prognosis is poor. FILIBERTO CLANCY Sep 15, 2016 19:19
--- NOTE | 2016-09-15 22:40 | General Progress Note ---
Assessment/Plan Assessment/Plan Assessment - TF intolerance - possibly due to DM gastroparesis - encephalopathy - resp failure - renal failure - Anemia Recommendations - change Zantac to BID IV PPI to maximize acid supression - ATC IV reglan trial - retry TF. - Monitor residuals Subjective Allergies: Coded Allergies: NIACIN (Verified Allergy, Unknown, ITCHING, 01/30/12) Objective Last 24 Hour Vital Signs Date Time Temp Pulse Resp B/P Pulse Ox O2 Delivery O2 Flow Rate FiO2 09/15/16 21:00 95 24 141/48 98 Mechanical Ventilator 30 09/15/16 20:59 94 20 30 09/15/16 20:00 30 09/15/16 20:00 98.5 94 19 129/59 99 Mechanical Ventilator 30 09/15/16 19:32 98.4 09/15/16 19:29 97 21 30 09/15/16 19:00 98.4 98 20 137/51 99 Mechanical Ventilator 30 09/15/16 18:03 143/50 09/15/16 18:00 100.3 98 20 124/43 98 Mechanical Ventilator 30 09/15/16 17:25 96 17 30 09/15/16 17:00 98 20 139/48 97 Mechanical Ventilator 30 09/15/16 16:00 30 09/15/16 16:00 100.4 100 18 146/47 97 Mechanical Ventilator 30 09/15/16 16:00 100 09/15/16 15:00 100 18 151/45 97 Mechanical Ventilator 30 09/15/16 14:57 99 21 30 09/15/16 14:00 95 21 144/44 99 Mechanical Ventilator 30 09/15/16 13:09 98 20 30 09/15/16 13:00 94 22 90/34 100 Mechanical Ventilator 30 09/15/16 12:00 99.3 95 25 102/35 97 Mechanical Ventilator 30 09/15/16 12:00 90 09/15/16 12:00 30 09/15/16 11:24 94 28 30 09/15/16 11:00 94 21 148/58 96 Mechanical Ventilator 30 09/15/16 10:00 93 21 91/26 97 Mechanical Ventilator 30 09/15/16 09:00 95 21 167/68 98 Mechanical Ventilator 30 09/15/16 08:46 94 22 30 09/15/16 08:25 165/52 09/15/16 08:25 93 165/52 09/15/16 08:00 99.0 92 22 165/52 99 Mechanical Ventilator 30 09/15/16 08:00 30 09/15/16 08:00 92 09/15/16 07:09 92 17 30 09/15/16 06:00 94 21 172/50 99 Mechanical Ventilator 30 09/15/16 05:06 92 16 30 09/15/16 05:00 92 15 114/40 98 Mechanical Ventilator 30 09/15/16 04:00 30 09/15/16 04:00 95 09/15/16 04:00 98.8 95 15 128/35 97 Mechanical Ventilator 30 09/15/16 03:15 98 20 30 09/15/16 03:00 92 17 109/36 96 Mechanical Ventilator 30 09/15/16 02:00 95 21 121/44 98 Mechanical Ventilator 30 09/15/16 01:23 95 26 30 09/15/16 01:00 90 16 101/37 97 Mechanical Ventilator 30 09/15/16 00:00 30 09/15/16 00:00 86 09/15/16 00:00 86 17 125/36 98 Mechanical Ventilator 30 09/14/16 23:04 95 19 30 09/14/16 23:00 94 20 177/48 99 Mechanical Ventilator 30 Intake and Output 09/14/16 09/15/16 19:00 07:00 Intake Total 1790 ml 759 ml Output Total 0 ml 0 ml Balance 1790 ml 759 ml Free Water 0 ml 150 ml IV Total 1310 ml 129 ml Tube Feeding 480 ml 480 ml Output Urine Total 0 ml 0 ml # Bowel Movements 3 4 Laboratory Tests 09/15/16 04:00: White Blood Count 10.9H, Red Blood Count 3.73L, Hemoglobin 11.1L, Hematocrit 35.1L, Mean Corpuscular Volume 94, Mean Corpuscular Hemoglobin 29.9, Mean Corpuscular Hemoglobin Concent 31.7L, Red Cell Distribution Width 16.3H, Platelet Count 275, Mean Platelet Volume 6.9, Neutrophils (%) (Auto) 72.3, Lymphocytes (%) (Auto) 10.4L, Monocytes (%) (Auto) 9.7, Eosinophils (%) (Auto) 5.8H, Basophils (%) (Auto) 1.8, Sodium Level 146H, Potassium Level 3.2L, Chloride Level 95L, Carbon Dioxide Level 27, Anion Gap 24H, Blood Urea Nitrogen 56H, Creatinine 6.9H, Estimat Glomerular Filtration Rate 8.0, Glucose Level 228H , Calcium Level 10.2, Phenytoin (Dilantin) Level 12.4, Valproic Acid (Depakene) Level 52 Height (Feet): 5 Height (Inches): 6.00 Weight (Pounds): 172 ANNE CURRAN Sep 15, 2016 22:40
[2016-09-15] MEDS ORDERED: LORazepam Inj 2mg/ml 1ml IV PRN (22:45)
[2016-09-15] MEDS: Pantoprazole Inj IVP SCH (22:56)
[2016-09-15] MEDS: Metoclopramide 10mg/2ml Inj IVP SCH (22:56)
[2016-09-16] VITALS (24 sets, daily range): BP systolic 104–166; BP diastolic 24–69
[2016-09-16] MEDS: Dyna-Hex 2% Top Sol 8oz TOPIC SCH (00:43)
[2016-09-16] MEDS: Metoclopramide 10mg/2ml Inj IVP SCH ×4 (04:10→21:42)
[2016-09-16 05:27] LABS: BASOPHILS % (AUTO) 2.2 % (0.0-2.0); EOSINOPHILS % (AUTO) 4.9 % (0.0-3.0); LYMPHOCYTES % (AUTO) 10.6 % (20.0-45.0); MEAN CORPUSCULAR HEMOGLOBIN 29.7 PG (27.0-31.0); MEAN CORPUSCULAR HGB CONC 31.7 G/DL (32.0-36.0); MEAN CORPUSCULAR VOLUME 94 FL (80-99); MEAN PLATELET VOLUME 6.6 FL (6.5-10.1); MONOCYTES % (AUTO) 10.6 % (1.0-10.0); NEUTROPHILS % (AUTO) 71.8 % (45.0-75.0); PLATELET COUNT 347 K/UL (150-450); RED BLOOD COUNT 3.56 M/UL (4.70-6.10); RED CELL DISTRIBUTION WIDTH 16.1 % (11.6-14.8); WHITE BLOOD COUNT 12.5 K/UL (4.8-10.8)
--- NOTE | 2016-09-16 05:30 | Consultation ---
DATE OF CONSULTATION: 09/15/2016 GASTROENTEROLOGY CONSULTATION CHIEF COMPLAINT: I was asked to see this patient by Dr. Harrison Delatorre for an evaluation of tube feeding intolerance. HISTORY OF PRESENT ILLNESS: The patient is a 71-year-old man, who was admitted to the hospital and had subsequent arrest requiring intubation and mechanical ventilation. He is currently in the ICU and he is nonverbal. His and his daughter are at bedside and they are able to answer some questions. The patient has been started on tube feedings, but because of recurrent large residual, this consultation was generated to assist with tube feeding management. The patient by daughter's report has had longstanding history of diabetes and has had a history of diabetic retinopathy as well as renal failure and diabetic peripheral neuropathy. The patient reportedly did complain of postprandial bloating and poor completion of digestion process after meals for many years. He however had no episodes of nausea or vomiting. PAST MEDICAL HISTORY: History of hypertension, gout, hypercholesterolemia, history of congestive heart failure, end-stage renal disease, coronary artery disease, type 2 diabetes mellitus, COPD, benign prostatic hypertrophy, and status post shunt placement for dialysis. MEDICATIONS: See chart list for details. ALLERGIES: Niacin. SOCIAL HISTORY: The patient is and reportedly has quit smoking 12 years ago. He lives at home with his family. FAMILY HISTORY: Noncontributory. REVIEW OF SYSTEMS: Unobtainable. PHYSICAL EXAMINATION: GENERAL: An elderly man seen in the intensive care unit on a ventilator. He made some spontaneous movements of his hand but without response to physician. HEENT: Normocephalic and atraumatic. Nasogastric tube was in place. Endotracheal tube was in place. CHEST: Revealed coarse breath sounds. CARDIOVASCULAR: Revealed regular rate. ABDOMEN: Soft. Good bowel sounds. There is no organomegaly. EXTREMITIES: Revealed no edema. LABORATORY AND DIAGNOSTIC DATA: Laboratory data were noted. ASSESSMENT: This patient presents with respiratory failure and he is status post cardiac arrest. He required tube feeding for enteral nutritional support. However, he has not been tolerating it, and given his longstanding history of diabetes, this is most likely diabetic gastroparesis. He does have other evidence of diabetic end-organ damage including renal failure, diabetic retinopathy, and diabetic neuropathy. In these circumstances, typically the patient also has diabetic gastroparesis. The patient does have longstanding digestive colitis which is likely due to the same. Under these circumstances, however, the tube feeding is having high residuals. I would place the patient on maximal proton pump inhibitor support intravenously with twice daily proton pump inhibitor and Zantac. I would also place the patient on short-term trial of intravenous Reglan. Tube feeding can then be restarted and the residuals should be monitored very closely. Ultimately, if he fails this degree of intervention, then a catheter can be placed and advanced into the duodenum if necessary. RECOMMENDATIONS: Per above discussion and per orders written in the chart. Thank you for asking me to participate in the care of this patient. I will follow up with you. Natalie Arias M.D. DR: Tej JOB#: [id number] CC:
[2016-09-16] MEDS ORDERED: Heparin Sod 1000 units/ml 10ml IV PRN (06:00)
[2016-09-16] MEDS: NovoLOG Insulin Flexpen SUBQ SCH ×5 (06:27→23:54)
[2016-09-16 06:35] LABS: ALBUMIN/GLOBULIN RATIO 0.9 (1.0-2.7); CALCIUM 10.3 mg/dL (8.6-10.2); CREATININE 8.2 mg/dL (0.7-1.2); GLOMERULAR FILTRATION RATE 6.5 mL/min (>60); TOTAL PROTEIN 6.8 g/dL (6.6-8.7)
[2016-09-16] MEDS: Phenytoin 200 MG in NS 55 ML IVPB SCH ×3 (08:16→23:47)
--- NOTE | 2016-09-16 08:16 | Cardiology Report ---
APPROVED REPORT EKG Measurement Heart [id number] Normal sinus rhythm Inferior infarct, age undetermined Abnormal ECG
[2016-09-16] MEDS: D5W IV SCH ×3 (09:49→21:21)
[2016-09-16] MEDS: VALPROATE SODIUM IV SCH ×2 (09:49→21:21)
[2016-09-16] MEDS: Minoxidil 10mg tab GT SCH ×2 (09:50→17:13)
[2016-09-16] MEDS: Heparin 5000 units/ml inj SUBQ SCH ×2 (09:51→21:35)
[2016-09-16] MEDS: Pantoprazole Inj IVP SCH ×2 (10:06→21:42)
--- NOTE | 2016-09-16 11:04 | Diagnostic Imaging Report ---
Indication: COPD, shortness of breath Technique: One view of the chest Comparison: 09/13/2016 Findings: Stable satisfactory positions of endotracheal and nasogastric tubes. There is a right jugular tunneled dialysis catheter again demonstrated. No definite acute infiltrates. No effusions. Findings are unchanged Impression: Unchanged, over one day, findings as above.
[2016-09-16] MEDS: DuoNeb 0.5-3(2.5)mg/3ml neb HHN SCH ×4 (11:20→23:05)
--- NOTE | 2016-09-16 12:50 | Critical Care Progress Note ---
Assessment/Plan Assessment/Plan 1. Status post cardiac arrest. 2. Renal failure with hyperkalemia. 3. Respiratory failure. 4. Anoxic encephalopathy. 5. Status epilepticus 6. Coronary artery disease. 7. History of cardiomyopathy. 8. Diabetes. 9. Hypertension. not tolerating tube feeds has spontaneous TV 250 cc but RR high prognosis guarded cannot wean with poor MS and excess secretions, high RR disc w RN may need trach Critical Care - Subjective ROS Limited/Unobtainable: Yes Condition: critical EKG Rhythm: Sinus Rhythm Residuals: high I&O: Intake and Output 09/15/16 09/16/16 19:00 07:00 Intake Total 120 ml 309.0 ml Balance 120 ml 309.0 ml Free Water 30 ml IV Total 129.0 ml Tube Feeding 120 ml 150 ml # Voids 4 # Bowel Movements 4 5 Critical Care - Objective ET-Tube: 8.0 ET Position: 24 Last 24 Hour Vital Signs Date Time Temp Pulse Resp B/P Pulse Ox O2 Delivery O2 Flow Rate FiO2 09/16/16 12:00 98.9 82 18 110/37 100 Mechanical Ventilator 30 09/16/16 12:00 30 09/16/16 12:00 83 09/16/16 11:29 87 12 98 Mechanical Ventilator 30 09/16/16 11:22 87 12 30 09/16/16 11:21 30 09/16/16 11:20 87 20 100 Mechanical Ventilator 30 09/16/16 11:00 94 18 135/34 98 Mechanical Ventilator 30 09/16/16 10:00 93 22 154/66 100 Mechanical Ventilator 30 09/16/16 09:51 98 168/36 09/16/16 09:50 168/36 09/16/16 09:18 100 26 30 09/16/16 09:00 97 25 158/36 100 Mechanical Ventilator 30 09/16/16 08:00 98.7 109 32 162/36 98 Mechanical Ventilator 30 09/16/16 08:00 108 09/16/16 08:00 30 09/16/16 07:17 95 30 30 09/16/16 07:00 94 22 148/52 98 Mechanical Ventilator 30 09/16/16 06:00 90 17 104/24 93 Mechanical Ventilator 30 09/16/16 05:08 98 27 30 09/16/16 05:00 98 22 152/45 100 Mechanical Ventilator 30 09/16/16 04:00 30 09/16/16 04:00 98.5 97 19 140/38 99 Mechanical Ventilator 30 09/16/16 04:00 95 09/16/16 03:29 87 16 30 09/16/16 03:00 97 25 153/56 100 Mechanical Ventilator 30 09/16/16 02:00 94 19 143/49 100 Mechanical Ventilator 30 09/16/16 01:00 94 19 147/49 98 Mechanical Ventilator 30 09/16/16 00:48 90 16 30 09/16/16 00:00 98.7 98 19 140/46 99 Mechanical Ventilator 30 09/16/16 00:00 30 09/16/16 00:00 95 09/15/16 23:00 91 19 136/43 98 Mechanical Ventilator 30 09/15/16 22:42 89 16 30 09/15/16 22:00 91 25 127/49 98 Mechanical Ventilator 30 09/15/16 21:00 95 24 141/48 98 Mechanical Ventilator 30 09/15/16 20:59 94 20 30 09/15/16 20:00 30 09/15/16 20:00 98.5 94 19 129/59 99 Mechanical Ventilator 30 09/15/16 20:00 93 09/15/16 19:32 98.4 09/15/16 19:29 97 21 30 09/15/16 19:00 98.4 98 20 137/51 99 Mechanical Ventilator 30 09/15/16 18:03 143/50 09/15/16 18:00 100.3 98 20 124/43 98 Mechanical Ventilator 30 09/15/16 17:25 96 17 30 09/15/16 17:00 98 20 139/48 97 Mechanical Ventilator 30 09/15/16 16:00 30 09/15/16 16:00 100.4 100 18 146/47 97 Mechanical Ventilator 30 09/15/16 16:00 100 09/15/16 15:00 100 18 151/45 97 Mechanical Ventilator 30 09/15/16 14:57 99 21 30 09/15/16 14:00 95 21 144/44 99 Mechanical Ventilator 30 09/15/16 13:09 98 20 30 09/15/16 13:00 94 22 90/34 100 Mechanical Ventilator 30 Status: obtunded Lungs: rhonchi Heart: normal rate Objective: seizures vs myoclonus Micro: Microbiology Date/Time Source Procedure Growth Status 09/15/16 08:30 Stool Clostridium difficile Toxin Assay - Final Complete Accucheck: 235 CHLOE ESQUIVEL Sep 16, 2016 12:50
[2016-09-16] MEDS ORDERED: KCl 10% 40mEq/30ml liquid NG ONE (13:15)
--- NOTE | 2016-09-16 14:07 | Neurology Progress Note ---
Interim History Interim History ROS Limited/Unobtainable: Yes Complaints: coma Events: off versed, no sz noted ,restless, EEG no sz activity Objective Physical Exam Last Vital Signs Date Time Temp Pulse Resp B/P Pulse Ox O2 Delivery O2 Flow Rate FiO2 09/16/16 13:24 90 30 30 09/16/16 13:00 166/42 98 Mechanical Ventilator 09/16/16 12:30 4.0 09/16/16 12:00 98.9 Laboratory Tests Test 09/16/16 04:00 White Blood Count 12.5 K/UL (4.8-10.8) H Red Blood Count 3.56 M/UL (4.70-6.10) L Hemoglobin 10.6 G/DL (14.2-18.0) L Hematocrit 33.3 % (42.0-52.0) L Mean Corpuscular Volume 94 FL (80-99) Mean Corpuscular Hemoglobin 29.7 PG (27.0-31.0) Mean Corpuscular Hemoglobin Concent 31.7 G/DL (32.0-36.0) L Red Cell Distribution Width 16.1 % (11.6-14.8) H Platelet Count 347 K/UL (150-450) Mean Platelet Volume 6.6 FL (6.5-10.1) Neutrophils (%) (Auto) 71.8 % (45.0-75.0) Lymphocytes (%) (Auto) 10.6 % (20.0-45.0) L Monocytes (%) (Auto) 10.6 % (1.0-10.0) H Eosinophils (%) (Auto) 4.9 % (0.0-3.0) H Basophils (%) (Auto) 2.2 % (0.0-2.0) H Sodium Level 145 mEQ/L (135-145) Potassium Level 3.0 mEQ/L (3.4-4.9) L Chloride Level 95 mEQ/L (98-107) L Carbon Dioxide Level 25 mEQ/L (20-30) Anion Gap 25 (5-15) H Blood Urea Nitrogen 72 mg/dL (7-23) H Creatinine 8.2 mg/dL (0.7-1.2) H Estimat Glomerular Filtration Rate 6.5 mL/min (>60) Glucose Level 190 mg/dL (74-106) H Calcium Level 10.3 mg/dL (8.6-10.2) H Phosphorus Level 7.1 mg/dL (2.5-4.8) H Total Bilirubin 0.3 mg/dL (0.0-1.2) Aspartate Amino Transf (AST/SGOT) 60 U/L (5-40) H Alanine Aminotransferase (ALT/SGPT) 31 U/L (3-41) Alkaline Phosphatase 69 U/L (40-129) Total Protein 6.8 g/dL (6.6-8.7) Albumin 3.3 g/dL (3.5-5.2) L Globulin 3.5 g/dL Albumin/Globulin Ratio 0.9 (1.0-2.7) L General: no acute distress, other - intubated no twitching noted restless Head: atraumatic Neck: other - rigid Neurologic Exam Mental Status: other - comatose, verbally unresponcive, noted spontan lifting both arms Speech: other Language: other Cranial Nerve II: no papilledema Cranial Nerves III, IV, : other - p 2mm sluggish aom-minor on doll,s Cranial Nerve V: other - +corneal Cranial Nerve VII: no facial asymmetry Cranial Nerve VIII: other Cranial Nerve IX: other - poor gag on suction Cranial Nerve XI: other Cranial Nerve XII: tongue midline Motor System: other - flaccid, some spont movement arms Sensory: other Coordination: other Deep Tendon Reflexes: 0 ankle (L), 0 ankle (R), 0 knee (L), 0 knee (R), 1+ ankle (L), 1+ ankle (R), 1+ bicep (L), 1+ bicep (R), 1+ brachioradialis (L), 1+ brachioradialis (R), 1+ knee (L), 1+ knee (R), 1+ tricep (L), 1+ tricep (R) Reflexes: extensor plantar (R), mute plantar (L) Stance: other Gait: other Impression/Recommendations Problems: (1) Anoxic encephalopathy syndrome (2) 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
--- NOTE | 2016-09-16 14:10 | Nephrology Progress Note ---
Assessment/Plan Problem List: (1) ESRD (end stage renal disease) (2) Anoxic encephalopathy syndrome (3) Respiratory failure with hypoxia (4) CHF (congestive heart failure) (5) HTN (hypertension) Plan HD as tolerated Replete K Vent support Discussed with RN Discussed with Family Discussed with dr Bautista follow labs TF trach and PEG soon Subjective Subjective remains intubated seen on dialysis Objective Objective Last 24 Hour Vital Signs Date Time Temp Pulse Resp B/P Pulse Ox O2 Delivery O2 Flow Rate FiO2 09/16/16 13:24 90 30 30 09/16/16 13:00 87 20 166/42 98 Mechanical Ventilator 30 09/16/16 12:30 Mechanical Ventilator 4.0 30 09/16/16 12:00 98.9 82 18 110/37 100 Mechanical Ventilator 30 09/16/16 12:00 30 09/16/16 12:00 83 09/16/16 11:29 87 12 98 Mechanical Ventilator 30 09/16/16 11:22 87 12 30 09/16/16 11:21 30 09/16/16 11:20 87 20 100 Mechanical Ventilator 30 09/16/16 11:00 94 18 135/34 98 Mechanical Ventilator 30 09/16/16 10:00 93 22 154/66 100 Mechanical Ventilator 30 09/16/16 09:51 98 168/36 09/16/16 09:50 168/36 09/16/16 09:18 100 26 30 09/16/16 09:00 97 25 158/36 100 Mechanical Ventilator 30 09/16/16 08:00 98.7 109 32 162/36 98 Mechanical Ventilator 30 09/16/16 08:00 108 09/16/16 08:00 30 09/16/16 07:17 95 30 30 09/16/16 07:00 94 22 148/52 98 Mechanical Ventilator 30 09/16/16 06:00 90 17 104/24 93 Mechanical Ventilator 30 09/16/16 05:08 98 27 30 09/16/16 05:00 98 22 152/45 100 Mechanical Ventilator 30 09/16/16 04:00 30 09/16/16 04:00 98.5 97 19 140/38 99 Mechanical Ventilator 30 09/16/16 04:00 95 09/16/16 03:29 87 16 30 09/16/16 03:00 97 25 153/56 100 Mechanical Ventilator 30 09/16/16 02:00 94 19 143/49 100 Mechanical Ventilator 30 09/16/16 01:00 94 19 147/49 98 Mechanical Ventilator 30 09/16/16 00:48 90 16 30 09/16/16 00:00 98.7 98 19 140/46 99 Mechanical Ventilator 30 09/16/16 00:00 30 09/16/16 00:00 95 09/15/16 23:00 91 19 136/43 98 Mechanical Ventilator 30 09/15/16 22:42 89 16 30 09/15/16 22:00 91 25 127/49 98 Mechanical Ventilator 30 09/15/16 21:00 95 24 141/48 98 Mechanical Ventilator 30 09/15/16 20:59 94 20 30 09/15/16 20:00 30 09/15/16 20:00 98.5 94 19 129/59 99 Mechanical Ventilator 30 09/15/16 20:00 93 09/15/16 19:32 98.4 09/15/16 19:29 97 21 30 09/15/16 19:00 98.4 98 20 137/51 99 Mechanical Ventilator 30 09/15/16 18:03 143/50 09/15/16 18:00 100.3 98 20 124/43 98 Mechanical Ventilator 30 09/15/16 17:25 96 17 30 09/15/16 17:00 98 20 139/48 97 Mechanical Ventilator 30 09/15/16 16:00 30 09/15/16 16:00 100.4 100 18 146/47 97 Mechanical Ventilator 30 09/15/16 16:00 100 09/15/16 15:00 100 18 151/45 97 Mechanical Ventilator 30 09/15/16 14:57 99 21 30 Intake and Output 09/15/16 09/16/16 19:00 07:00 Intake Total 120 ml 309.0 ml Balance 120 ml 309.0 ml Free Water 30 ml IV Total 129.0 ml Tube Feeding 120 ml 150 ml # Voids 4 # Bowel Movements 4 5 Laboratory Tests 09/16/16 04:00: White Blood Count 12.5H, Red Blood Count 3.56L, Hemoglobin 10.6L, Hematocrit 33.3L, Mean Corpuscular Volume 94, Mean Corpuscular Hemoglobin 29.7, Mean Corpuscular Hemoglobin Concent 31.7L, Red Cell Distribution Width 16.1H, Platelet Count 347, Mean Platelet Volume 6.6, Neutrophils (%) (Auto) 71.8, Lymphocytes (%) (Auto) 10.6L, Monocytes (%) (Auto) 10.6H, Eosinophils (%) (Auto ) 4.9H, Basophils (%) (Auto) 2.2H, Sodium Level 145, Potassium Level 3.0L, Chloride Level 95L, Carbon Dioxide Level 25, Anion Gap 25H, Blood Urea Nitrogen 72H, Creatinine 8.2H, Estimat Glomerular Filtration Rate 6.5, Glucose Level 190H , Calcium Level 10.3H, Phosphorus Level 7.1H, Total Bilirubin 0.3, Aspartate Amino Transf (AST/SGOT) 60H, Alanine Aminotransferase (ALT/SGPT) 31, Alkaline Phosphatase 69, Total Protein 6.8, Albumin 3.3L, Globulin 3.5, Albumin/Globulin Ratio 0.9L Height (Feet): 5 Height (Inches): 6.00 Weight (Pounds): 173 Cardiovascular: normal rate Respiratory/Chest: rhonchi - bilaterally Extremities: other - no edema CANDICE BREAUX Sep 16, 2016 14:10
[2016-09-16] MEDS: MIDAZOLAM IV SCH (14:31)
--- NOTE | 2016-09-16 17:26 | Cardiology Progress Note ---
Assessment/Plan Assessment/Plan cardiopulm arrest anoxic encephalopathy esrd on hd noncompliant with dialysis htn chronic diastolic failure hx cad status epilepticus telel neg sinus rare pvc on the vent dialysis as planned movesspont bp seem ok d/w rn bioethics Subjective ROS Limited/Unobtainable: Yes Subjective on verntnot responsive except to noxious stimuli grimaces Objective Last 24 Hour Vital Signs Date Time Temp Pulse Resp B/P Pulse Ox O2 Delivery O2 Flow Rate FiO2 09/16/16 17:24 94 16 30 09/16/16 17:13 153/50 09/16/16 17:03 Mechanical Ventilator 4.0 30 09/16/16 17:00 96 20 153/50 98 Mechanical Ventilator 30 09/16/16 16:00 93 09/16/16 16:00 30 09/16/16 16:00 98.7 94 22 141/49 100 Mechanical Ventilator 30 09/16/16 15:25 92 16 30 09/16/16 15:24 91 22 99 Mechanical Ventilator 30 09/16/16 15:13 90 20 100 Mechanical Ventilator 30 09/16/16 15:00 91 20 142/41 98 Mechanical Ventilator 30 09/16/16 14:00 89 20 135/69 98 Mechanical Ventilator 30 09/16/16 13:24 90 30 30 09/16/16 13:00 87 20 166/42 98 Mechanical Ventilator 30 09/16/16 12:30 Mechanical Ventilator 4.0 30 09/16/16 12:00 98.9 82 18 110/37 100 Mechanical Ventilator 30 09/16/16 12:00 30 09/16/16 12:00 83 09/16/16 11:29 87 12 98 Mechanical Ventilator 30 09/16/16 11:22 87 12 30 09/16/16 11:21 30 09/16/16 11:20 87 20 100 Mechanical Ventilator 30 09/16/16 11:00 94 18 135/34 98 Mechanical Ventilator 30 09/16/16 10:00 93 22 154/66 100 Mechanical Ventilator 30 09/16/16 09:51 98 168/36 09/16/16 09:50 168/36 09/16/16 09:18 100 26 30 09/16/16 09:00 97 25 158/36 100 Mechanical Ventilator 30 09/16/16 08:00 98.7 109 32 162/36 98 Mechanical Ventilator 30 09/16/16 08:00 108 09/16/16 08:00 30 09/16/16 07:17 95 30 30 09/16/16 07:00 94 22 148/52 98 Mechanical Ventilator 30 09/16/16 06:00 90 17 104/24 93 Mechanical Ventilator 30 09/16/16 05:08 98 27 30 09/16/16 05:00 98 22 152/45 100 Mechanical Ventilator 30 09/16/16 04:00 30 09/16/16 04:00 98.5 97 19 140/38 99 Mechanical Ventilator 30 09/16/16 04:00 95 09/16/16 03:29 87 16 30 09/16/16 03:00 97 25 153/56 100 Mechanical Ventilator 30 09/16/16 02:00 94 19 143/49 100 Mechanical Ventilator 30 09/16/16 01:00 94 19 147/49 98 Mechanical Ventilator 30 09/16/16 00:48 90 16 30 09/16/16 00:00 98.7 98 19 140/46 99 Mechanical Ventilator 30 09/16/16 00:00 30 09/16/16 00:00 95 09/15/16 23:00 91 19 136/43 98 Mechanical Ventilator 30 09/15/16 22:42 89 16 30 09/15/16 22:00 91 25 127/49 98 Mechanical Ventilator 30 09/15/16 21:00 95 24 141/48 98 Mechanical Ventilator 30 09/15/16 20:59 94 20 30 09/15/16 20:00 30 09/15/16 20:00 98.5 94 19 129/59 99 Mechanical Ventilator 30 09/15/16 20:00 93 09/15/16 19:32 98.4 09/15/16 19:29 97 21 30 09/15/16 19:00 98.4 98 20 137/51 99 Mechanical Ventilator 30 09/15/16 18:03 143/50 09/15/16 18:00 100.3 98 20 124/43 98 Mechanical Ventilator 30 General Appearance: no apparent distress, on vent Neck: supple Cardiovascular: normal rate, regular rhythm, systolic murmur Respiratory/Chest: lungs clear Abdomen: normal bowel sounds, non tender, soft Extremities: no swelling Intake and Output 09/15/16 09/16/16 19:00 07:00 Intake Total 120 ml 309.0 ml Balance 120 ml 309.0 ml Free Water 30 ml IV Total 129.0 ml Tube Feeding 120 ml 150 ml # Voids 4 # Bowel Movements 4 5 Laboratory Tests Test 09/16/16 04:00 White Blood Count 12.5 K/UL (4.8-10.8) H Red Blood Count 3.56 M/UL (4.70-6.10) L Hemoglobin 10.6 G/DL (14.2-18.0) L Hematocrit 33.3 % (42.0-52.0) L Mean Corpuscular Volume 94 FL (80-99) Mean Corpuscular Hemoglobin 29.7 PG (27.0-31.0) Mean Corpuscular Hemoglobin Concent 31.7 G/DL (32.0-36.0) L Red Cell Distribution Width 16.1 % (11.6-14.8) H Platelet Count 347 K/UL (150-450) Mean Platelet Volume 6.6 FL (6.5-10.1) Neutrophils (%) (Auto) 71.8 % (45.0-75.0) Lymphocytes (%) (Auto) 10.6 % (20.0-45.0) L Monocytes (%) (Auto) 10.6 % (1.0-10.0) H Eosinophils (%) (Auto) 4.9 % (0.0-3.0) H Basophils (%) (Auto) 2.2 % (0.0-2.0) H Sodium Level 145 mEQ/L (135-145) Potassium Level 3.0 mEQ/L (3.4-4.9) L Chloride Level 95 mEQ/L (98-107) L Carbon Dioxide Level 25 mEQ/L (20-30) Anion Gap 25 (5-15) H Blood Urea Nitrogen 72 mg/dL (7-23) H Creatinine 8.2 mg/dL (0.7-1.2) H Estimat Glomerular Filtration Rate 6.5 mL/min (>60) Glucose Level 190 mg/dL (74-106) H Calcium Level 10.3 mg/dL (8.6-10.2) H Phosphorus Level 7.1 mg/dL (2.5-4.8) H Total Bilirubin 0.3 mg/dL (0.0-1.2) Aspartate Amino Transf (AST/SGOT) 60 U/L (5-40) H Alanine Aminotransferase (ALT/SGPT) 31 U/L (3-41) Alkaline Phosphatase 69 U/L (40-129) Total Protein 6.8 g/dL (6.6-8.7) Albumin 3.3 g/dL (3.5-5.2) L Globulin 3.5 g/dL Albumin/Globulin Ratio 0.9 (1.0-2.7) L Microbiology Date/Time Source Procedure Growth Status 09/15/16 08:30 Stool Clostridium difficile Toxin Assay - Final Complete HUSSEIN CAGE Sep 16, 2016 17:26
--- NOTE | 2016-09-16 19:00 | General Progress Note ---
Assessment/Plan Assessment/Plan Assessment - TF intolerance - possibly due to DM gastroparesis - encephalopathy - resp failure - renal failure - Anemia Recommendations - BID IV PPI - ATC IV reglan trial - TF. - Monitor residuals Subjective Allergies: Coded Allergies: NIACIN (Verified Allergy, Unknown, ITCHING, 01/30/12) Subjective Above noted seen in ICU TF restarted overnight Objective Last 24 Hour Vital Signs Date Time Temp Pulse Resp B/P Pulse Ox O2 Delivery O2 Flow Rate FiO2 09/16/16 18:00 93 20 128/59 98 Mechanical Ventilator 30 09/16/16 17:24 94 16 30 09/16/16 17:13 153/50 09/16/16 17:03 Mechanical Ventilator 4.0 30 09/16/16 17:00 96 20 153/50 98 Mechanical Ventilator 30 09/16/16 16:00 93 09/16/16 16:00 30 09/16/16 16:00 98.7 94 22 141/49 100 Mechanical Ventilator 30 09/16/16 15:25 92 16 30 09/16/16 15:24 91 22 99 Mechanical Ventilator 30 09/16/16 15:13 90 20 100 Mechanical Ventilator 30 09/16/16 15:00 91 20 142/41 98 Mechanical Ventilator 30 09/16/16 14:00 89 20 135/69 98 Mechanical Ventilator 30 09/16/16 13:24 90 30 30 09/16/16 13:00 87 20 166/42 98 Mechanical Ventilator 30 09/16/16 12:30 Mechanical Ventilator 4.0 30 09/16/16 12:00 98.9 82 18 110/37 100 Mechanical Ventilator 30 09/16/16 12:00 30 09/16/16 12:00 83 09/16/16 11:29 87 12 98 Mechanical Ventilator 30 09/16/16 11:22 87 12 30 09/16/16 11:21 30 09/16/16 11:20 87 20 100 Mechanical Ventilator 30 09/16/16 11:00 94 18 135/34 98 Mechanical Ventilator 30 09/16/16 10:00 93 22 154/66 100 Mechanical Ventilator 30 09/16/16 09:51 98 168/36 09/16/16 09:50 168/36 09/16/16 09:18 100 26 30 09/16/16 09:00 97 25 158/36 100 Mechanical Ventilator 30 09/16/16 08:00 98.7 109 32 162/36 98 Mechanical Ventilator 30 09/16/16 08:00 108 09/16/16 08:00 30 09/16/16 07:17 95 30 30 09/16/16 07:00 94 22 148/52 98 Mechanical Ventilator 30 09/16/16 06:00 90 17 104/24 93 Mechanical Ventilator 30 09/16/16 05:08 98 27 30 09/16/16 05:00 98 22 152/45 100 Mechanical Ventilator 30 09/16/16 04:00 30 09/16/16 04:00 98.5 97 19 140/38 99 Mechanical Ventilator 30 09/16/16 04:00 95 09/16/16 03:29 87 16 30 09/16/16 03:00 97 25 153/56 100 Mechanical Ventilator 30 09/16/16 02:00 94 19 143/49 100 Mechanical Ventilator 30 09/16/16 01:00 94 19 147/49 98 Mechanical Ventilator 30 09/16/16 00:48 90 16 30 09/16/16 00:00 98.7 98 19 140/46 99 Mechanical Ventilator 30 09/16/16 00:00 30 09/16/16 00:00 95 09/15/16 23:00 91 19 136/43 98 Mechanical Ventilator 30 09/15/16 22:42 89 16 30 09/15/16 22:00 91 25 127/49 98 Mechanical Ventilator 30 09/15/16 21:00 95 24 141/48 98 Mechanical Ventilator 30 09/15/16 20:59 94 20 30 09/15/16 20:00 30 09/15/16 20:00 98.5 94 19 129/59 99 Mechanical Ventilator 30 09/15/16 20:00 93 09/15/16 19:32 98.4 09/15/16 19:29 97 21 30 09/15/16 19:00 98.4 98 20 137/51 99 Mechanical Ventilator 30 Intake and Output 09/15/16 09/16/16 19:00 07:00 Intake Total 120 ml 309.0 ml Balance 120 ml 309.0 ml Free Water 30 ml IV Total 129.0 ml Tube Feeding 120 ml 150 ml # Voids 4 # Bowel Movements 4 5 Laboratory Tests 09/16/16 04:00: White Blood Count 12.5H, Red Blood Count 3.56L, Hemoglobin 10.6L, Hematocrit 33.3L, Mean Corpuscular Volume 94, Mean Corpuscular Hemoglobin 29.7, Mean Corpuscular Hemoglobin Concent 31.7L, Red Cell Distribution Width 16.1H, Platelet Count 347, Mean Platelet Volume 6.6, Neutrophils (%) (Auto) 71.8, Lymphocytes (%) (Auto) 10.6L, Monocytes (%) (Auto) 10.6H, Eosinophils (%) (Auto ) 4.9H, Basophils (%) (Auto) 2.2H, Sodium Level 145, Potassium Level 3.0L, Chloride Level 95L, Carbon Dioxide Level 25, Anion Gap 25H, Blood Urea Nitrogen 72H, Creatinine 8.2H, Estimat Glomerular Filtration Rate 6.5, Glucose Level 190H , Calcium Level 10.3H, Phosphorus Level 7.1H, Total Bilirubin 0.3, Aspartate Amino Transf (AST/SGOT) 60H, Alanine Aminotransferase (ALT/SGPT) 31, Alkaline Phosphatase 69, Total Protein 6.8, Albumin 3.3L, Globulin 3.5, Albumin/Globulin Ratio 0.9L Height (Feet): 5 Height (Inches): 6.00 Weight (Pounds): 173 Objective Intubated and unresponsive NCAT, (+) feeding tube and ETT supple Coarse BS and occ wheeze RR soft ND abdomen no edema ANNE CURRAN Sep 16, 2016 19:00
--- NOTE | 2016-09-16 19:11 | Internal Med Progress Note ---
Subjective Date of Service: Sep 16, 2016 Physician Name Filiberto Clancy Attending Physician Harrison Delatorre Current Medications Medications (Trade) Dose Ordered Sig/Mark Route PRN Reason Start Time Stop Time Status Last Admin Dose Admin Acetaminophen (Tylenol) 650 mg Q4H PRN ORAL Mild Pain (Pain Scale 1-3) 09/06/16 23:00 10/06/16 22:59 09/15/16 18:01 Albuterol/ Ipratropium (DuoNeb 0.5-3(2.5)mg/3ml) 3 ml Q4HRT HHN 09/16/16 11:00 09/21/16 10:59 09/16/16 15:23 Amlodipine Besylate (Norvasc) 10 mg DAILY GT 09/15/16 10:56 10/07/16 08:59 09/16/16 09:51 Chlorhexidine Gluconate 1 applic 1 applic DAILY TOPIC 09/10/16 03:30 10/10/16 03:29 09/16/16 00:43 Dextrose (Dextrose 50%) STAT PRN IV Hypoglycemia 09/06/16 23:00 10/06/16 22:59 Heparin Sodium (Porcine) 2000 unit 2,000 unit ONCE PRN IV FOR HD USE 09/16/16 06:00 09/16/16 23:59 Heparin Sodium (Porcine) 5000 units 5,000 units EVERY 12 HOURS SUBQ 09/08/16 21:00 10/08/16 20:59 09/16/16 09:51 Insulin Aspart (NovoLOG) EVERY 6 HOURS SUBQ 09/07/16 18:00 10/07/16 17:59 09/16/16 17:14 Lorazepam (Ativan 2mg/ml 1ml) 1 mg Q1HR PRN IV For Seizure Activity 09/15/16 22:45 09/22/16 22:44 Metoclopramide HCl (Reglan) 5 mg Q6H IVP 09/15/16 22:30 10/15/16 22:29 09/16/16 16:58 Midazolam HCl/ Dextrose (Versed/D5W) 100 ml @ 0 mls/hr Q24H IV 09/09/16 15:00 10/09/16 14:59 09/14/16 21:06 Minoxidil 15 mg 15 mg BID GT 09/15/16 10:57 10/13/16 17:59 09/16/16 17:13 Pantoprazole (Protonix) 40 mg EVERY 12 HOURS IVP 09/15/16 22:30 10/15/16 22:29 09/16/16 10:06 Phenytoin 200 mg/ Sodium Chloride 59 ml @ 114 mls/hr [id number] PHENYTOIN IVPB 09/10/16 16:00 10/10/16 15:59 09/16/16 16:58 Phenytoin/Sodium Chloride (Dilantin/Sodium Chloride) 120 ml @ 120 mls/hr POSTHD IVPB 09/11/16 15:00 10/11/16 14:59 09/13/16 21:19 Polyethylene Glycol (Miralax) 17 gm DAILYPRN PRN ORAL Constipation 09/06/16 23:00 10/06/16 22:59 Sodium Chloride (Sodium Chloride 1000ml bag) 1,000 ml @ 500 mls/hr Q2H PRN IVLG sbp<90 during hd 09/16/16 06:00 09/16/16 23:59 Valproate Sodium 1500 mg/Dextrose 70 ml @ 32.5 mls/hr Q12HR IV 09/11/16 21:00 10/11/16 20:59 09/16/16 09:49 Valproate Sodium/ Dextrose (Depacon Inj/D5W) 65 ml @ 32.5 mls/hr POSTHD IV 09/15/16 18:30 10/15/16 18:29 Allergies: Coded Allergies: NIACIN (Verified Allergy, Unknown, ITCHING, 01/30/12) ROS Limited/Unobtainable: Yes Subjective 71 YO M admitted with volume overload and respiratory failure. S/P cardiopulmonary arrest. ICU. Intubated and sedated. Cover for Int Brad-Dr Vail. Objective Last Vital Signs Date Time Temp Pulse Resp B/P Pulse Ox O2 Delivery O2 Flow Rate FiO2 09/16/16 19:00 96 21 147/41 100 Mechanical Ventilator 30 09/16/16 17:03 4.0 09/16/16 16:00 98.7 Laboratory Tests Test 09/16/16 04:00 White Blood Count 12.5 K/UL (4.8-10.8) H Red Blood Count 3.56 M/UL (4.70-6.10) L Hemoglobin 10.6 G/DL (14.2-18.0) L Hematocrit 33.3 % (42.0-52.0) L Mean Corpuscular Volume 94 FL (80-99) Mean Corpuscular Hemoglobin 29.7 PG (27.0-31.0) Mean Corpuscular Hemoglobin Concent 31.7 G/DL (32.0-36.0) L Red Cell Distribution Width 16.1 % (11.6-14.8) H Platelet Count 347 K/UL (150-450) Mean Platelet Volume 6.6 FL (6.5-10.1) Neutrophils (%) (Auto) 71.8 % (45.0-75.0) Lymphocytes (%) (Auto) 10.6 % (20.0-45.0) L Monocytes (%) (Auto) 10.6 % (1.0-10.0) H Eosinophils (%) (Auto) 4.9 % (0.0-3.0) H Basophils (%) (Auto) 2.2 % (0.0-2.0) H Sodium Level 145 mEQ/L (135-145) Potassium Level 3.0 mEQ/L (3.4-4.9) L Chloride Level 95 mEQ/L (98-107) L Carbon Dioxide Level 25 mEQ/L (20-30) Anion Gap 25 (5-15) H Blood Urea Nitrogen 72 mg/dL (7-23) H Creatinine 8.2 mg/dL (0.7-1.2) H Estimat Glomerular Filtration Rate 6.5 mL/min (>60) Glucose Level 190 mg/dL (74-106) H Calcium Level 10.3 mg/dL (8.6-10.2) H Phosphorus Level 7.1 mg/dL (2.5-4.8) H Total Bilirubin 0.3 mg/dL (0.0-1.2) Aspartate Amino Transf (AST/SGOT) 60 U/L (5-40) H Alanine Aminotransferase (ALT/SGPT) 31 U/L (3-41) Alkaline Phosphatase 69 U/L (40-129) Total Protein 6.8 g/dL (6.6-8.7) Albumin 3.3 g/dL (3.5-5.2) L Globulin 3.5 g/dL Albumin/Globulin Ratio 0.9 (1.0-2.7) L Microbiology Date/Time Source Procedure Growth Status 09/15/16 08:30 Stool Clostridium difficile Toxin Assay - Final Complete Intake and Output 09/15/16 09/16/16 19:00 07:00 Intake Total 120 ml 309.0 ml Balance 120 ml 309.0 ml Free Water 30 ml IV Total 129.0 ml Tube Feeding 120 ml 150 ml # Voids 4 # Bowel Movements 4 5 Objective General Appearance: WD/WN, lethargic EENT: PERRL/EOMI, normal ENT inspection, TMs normal Neck: non-tender, normal alignment, supple Cardiovascular: normal peripheral pulses, normal rate, regular rhythm, no gallop/murmur, no JVD Respiratory/Chest: Mech vent; chest wall non-tender, crackles/rales, rhonchi - bilaterally, expiratory wheezing Abdomen: normal bowel sounds, non tender, soft, no organomegaly Skin: normal pigmentation, warm/dry Assessment/Plan Problem List: (1) HTN (hypertension) Assessment & Plan: Cont amlodipine. (2) Hyperkalemia (3) Respiratory failure with hypoxia Assessment & Plan: Intubated and sedated. Cont vanco and zosyn per ID (4) ESRD (end stage renal disease) Assessment & Plan: See nephrology note. Next Hemodialysis 09/16/16 per nephrology (5) CHF (congestive heart failure) (6) Diabetes mellitus Assessment & Plan: Cont novolog sliding scale. 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 (9) Anoxic encephalopathy syndrome Assessment & Plan: See neruo note. Assessment/Plan Prognosis is poor. FILIBERTO CLANCY Sep 16, 2016 19:11
--- NOTE | 2016-09-16 20:30 | Electroencephalogram ---
DATE OF PROCEDURE: 09/16/2016 REQUESTING PHYSICIAN: Harrison Delatorre M.D READING PHYSICIAN: Star Bautista M.D. PROCEDURE PERFORMED: Electroencephalogram. TECHNIQUE: EEG was done using 18 electrodes placed scalp to scalp, scalp to ear montages according to 10/20 International System. The patient on ventilator assistance, described as being constantly restless and squirming, while being unresponsive. INTERPRETATION: Throughout the recording, background activity consists of a [id number] voltage, mixture of 4 to 6 cycles per second theta activities with an occasional appearance of generalized delta wave slowing followed by 1 to 2 seconds of suppression. Multiple EMG artifacts were noted predominantly in the central, cervical, frontal, and occipital regions. There were no czcno-ooc-esxw activities. No significant asymmetry from [id number]. ADDENDUM: The patient now on Depakote, Dilantin, and Ativan, but off Versed. IMPRESSION: Markedly abnormal EEG with presence of reactive moderate to severe diffuse slowing with episodes of burst suppression. COMMENT: Compared to previous study, there is absence of paroxysmal epileptiform activities. There is a limited amount of burst suppression pattern. It is compatible with a diffuse cortical abnormality. May reflect toxic, metabolic, postanoxic diffuse structural lesions, as well as interictal activities. Star Bautista M.D. DR: AVERY JOB#: [id number] CC:
[2016-09-16] MEDS: Phenytoin 500 MG in NS 110 ML IVPB SCH (21:06)
[2016-09-17] VITALS (24 sets, daily range): BP systolic 95–167; BP diastolic 29–65
[2016-09-17] MEDS: DuoNeb 0.5-3(2.5)mg/3ml neb HHN SCH ×6 (03:39→23:12)
[2016-09-17] MEDS: Metoclopramide 10mg/2ml Inj IVP SCH ×4 (04:35→23:15)
[2016-09-17] MEDS: NovoLOG Insulin Flexpen SUBQ SCH ×3 (05:27→18:24)
[2016-09-17 05:37] LABS: EOSINOPHILS % (AUTO) 2.3 % (0.0-3.0); MEAN CORPUSCULAR HEMOGLOBIN 29.7 PG (27.0-31.0); MEAN CORPUSCULAR HGB CONC 31.5 G/DL (32.0-36.0); MEAN CORPUSCULAR VOLUME 94 FL (80-99); MEAN PLATELET VOLUME 6.7 FL (6.5-10.1); MONOCYTES % (AUTO) 11.2 % (1.0-10.0); NEUTROPHILS % (AUTO) 71.6 % (45.0-75.0); PLATELET COUNT 359 K/UL (150-450); RED BLOOD COUNT 3.41 M/UL (4.70-6.10); RED CELL DISTRIBUTION WIDTH 16.4 % (11.6-14.8); WHITE BLOOD COUNT 13.8 K/UL (4.8-10.8)
[2016-09-17 06:17] LABS: ALBUMIN/GLOBULIN RATIO 0.9 (1.0-2.7); CALCIUM 9.9 mg/dL (8.6-10.2); CREATININE 5.4 mg/dL (0.7-1.2); GLOMERULAR FILTRATION RATE 10.6 mL/min (>60); POTASSIUM 3.3 mEQ/L (3.4-4.9); TOTAL PROTEIN 6.4 g/dL (6.6-8.7)
[2016-09-17] MEDS: Pantoprazole Inj IVP SCH ×2 (08:22→20:06)
[2016-09-17] MEDS: Minoxidil 10mg tab GT SCH ×2 (08:23→18:21)
[2016-09-17] MEDS: Phenytoin 200 MG in NS 55 ML IVPB SCH (08:23)
[2016-09-17] MEDS: Heparin 5000 units/ml inj SUBQ SCH ×2 (08:25→20:48)
[2016-09-17] MEDS: Dyna-Hex 2% Top Sol 8oz TOPIC SCH (08:27)
[2016-09-17] MEDS: VALPROATE SODIUM IV SCH (09:18)
[2016-09-17] MEDS: D5W IV SCH (09:18)
--- NOTE | 2016-09-17 11:10 | Internal Med Progress Note ---
Subjective Date of Service: Sep 17, 2016 Physician Name Kartik Clancy Attending Physician Harrison Delatorre Current Medications Medications (Trade) Dose Ordered Sig/Mark Route PRN Reason Start Time Stop Time Status Last Admin Dose Admin Acetaminophen (Tylenol) 650 mg Q4H PRN ORAL Mild Pain (Pain Scale 1-3) 09/06/16 23:00 10/06/16 22:59 09/17/16 08:23 Albuterol/ Ipratropium (DuoNeb 0.5-3(2.5)mg/3ml) 3 ml Q4HRT HHN 09/16/16 11:00 09/21/16 10:59 09/17/16 07:28 Amlodipine Besylate (Norvasc) 10 mg DAILY GT 09/15/16 10:56 10/07/16 08:59 09/17/16 08:27 Chlorhexidine Gluconate 1 applic 1 applic DAILY TOPIC 09/10/16 03:30 10/10/16 03:29 09/17/16 08:27 Dextrose (Dextrose 50%) STAT PRN IV Hypoglycemia 09/06/16 23:00 10/06/16 22:59 Heparin Sodium (Porcine) 5000 units 5,000 units EVERY 12 HOURS SUBQ 09/08/16 21:00 10/08/16 20:59 09/17/16 08:25 Insulin Aspart (NovoLOG) EVERY 6 HOURS SUBQ 09/07/16 18:00 10/07/16 17:59 09/17/16 05:27 Lorazepam (Ativan 2mg/ml 1ml) 1 mg Q1HR PRN IV For Seizure Activity 09/15/16 22:45 09/22/16 22:44 Metoclopramide HCl (Reglan) 5 mg Q6H IVP 09/15/16 22:30 10/15/16 22:29 09/17/16 10:45 Midazolam HCl/ Dextrose (Versed/D5W) 100 ml @ 0 mls/hr Q24H IV 09/09/16 15:00 10/09/16 14:59 09/14/16 21:06 Minoxidil 15 mg 15 mg BID GT 09/15/16 10:57 10/13/16 17:59 09/17/16 08:23 Pantoprazole (Protonix) 40 mg EVERY 12 HOURS IVP 09/15/16 22:30 10/15/16 22:29 09/17/16 08:22 Phenytoin 200 mg/ Sodium Chloride 59 ml @ 114 mls/hr [id number] PHENYTOIN IVPB 09/10/16 16:00 10/10/16 15:59 09/17/16 08:23 Phenytoin/Sodium Chloride (Dilantin/Sodium Chloride) 120 ml @ 120 mls/hr POSTHD IVPB 09/11/16 15:00 10/11/16 14:59 09/16/16 21:06 Polyethylene Glycol (Miralax) 17 gm DAILYPRN PRN ORAL Constipation 09/06/16 23:00 10/06/16 22:59 Valproate Sodium 1500 mg/Dextrose 70 ml @ 32.5 mls/hr Q12HR IV 09/11/16 21:00 10/11/16 20:59 09/17/16 09:18 Valproate Sodium/ Dextrose (Depacon Inj/D5W) 65 ml @ 32.5 mls/hr POSTHD IV 09/15/16 18:30 10/15/16 18:29 09/16/16 23:10 Allergies: Coded Allergies: NIACIN (Verified Allergy, Unknown, ITCHING, 01/30/12) ROS Limited/Unobtainable: Yes Subjective 71 YO M admitted with volume overload and respiratory failure. S/P cardiopulmonary arrest. ICU. Intubated and sedated. Cover for Int Med-Dr Vail. Objective Last Vital Signs Date Time Temp Pulse Resp B/P Pulse Ox O2 Delivery O2 Flow Rate FiO2 09/17/16 09:49 99.7 09/17/16 09:20 90 16 30 09/17/16 09:00 153/39 97 Mechanical Ventilator 09/16/16 17:03 4.0 Laboratory Tests Test 09/17/16 04:20 White Blood Count 13.8 K/UL (4.8-10.8) H Red Blood Count 3.41 M/UL (4.70-6.10) L Hemoglobin 10.1 G/DL (14.2-18.0) L Hematocrit 32.2 % (42.0-52.0) L Mean Corpuscular Volume 94 FL (80-99) Mean Corpuscular Hemoglobin 29.7 PG (27.0-31.0) Mean Corpuscular Hemoglobin Concent 31.5 G/DL (32.0-36.0) L Red Cell Distribution Width 16.4 % (11.6-14.8) H Platelet Count 359 K/UL (150-450) Mean Platelet Volume 6.7 FL (6.5-10.1) Neutrophils (%) (Auto) 71.6 % (45.0-75.0) Lymphocytes (%) (Auto) 13.0 % (20.0-45.0) L Monocytes (%) (Auto) 11.2 % (1.0-10.0) H Eosinophils (%) (Auto) 2.3 % (0.0-3.0) Basophils (%) (Auto) 2.0 % (0.0-2.0) Sodium Level 145 mEQ/L (135-145) Potassium Level 3.3 mEQ/L (3.4-4.9) L Chloride Level 97 mEQ/L (98-107) L Carbon Dioxide Level 30 mEQ/L (20-30) Anion Gap 18 (5-15) H Blood Urea Nitrogen 38 mg/dL (7-23) #H Creatinine 5.4 mg/dL (0.7-1.2) H Estimat Glomerular Filtration Rate 10.6 mL/min (>60) Glucose Level 243 mg/dL (74-106) H Calcium Level 9.9 mg/dL (8.6-10.2) Total Bilirubin 0.2 mg/dL (0.0-1.2) Aspartate Amino Transf (AST/SGOT) 49 U/L (5-40) H Alanine Aminotransferase (ALT/SGPT) 29 U/L (3-41) Alkaline Phosphatase 85 U/L (40-129) Total Protein 6.4 g/dL (6.6-8.7) L Albumin 3.1 g/dL (3.5-5.2) L Globulin 3.3 g/dL Albumin/Globulin Ratio 0.9 (1.0-2.7) L Microbiology Date/Time Source Procedure Growth Status 09/16/16 10:00 Sputum Gram Stain Pending Resulted 09/16/16 10:00 Sputum Culture - Preliminary Gram Negative Bacillus 1 Resulted 09/15/16 08:30 Stool Clostridium difficile Toxin Assay - Final Complete Intake and Output 09/16/16 09/17/16 19:00 07:00 Intake Total 638.5 ml 794 ml Output Total 2100 ml Balance -1461.5 ml 794 ml IV Total 188.5 ml 314 ml Tube Feeding 390 ml 480 ml Other 60 ml Hemodialysis UF 2100 ml # Voids 1 1 # Bowel Movements 3 1 Objective General Appearance: WD/WN, lethargic EENT: PERRL/EOMI, normal ENT inspection, TMs normal Neck: non-tender, normal alignment, supple Cardiovascular: normal peripheral pulses, normal rate, regular rhythm, no gallop/murmur, no JVD Respiratory/Chest: Mech vent; chest wall non-tender, crackles/rales, rhonchi - bilaterally, expiratory wheezing Abdomen: normal bowel sounds, non tender, soft, no organomegaly Skin: normal pigmentation, warm/dry Assessment/Plan Problem List: (1) HTN (hypertension) Assessment & Plan: Cont amlodipine. (2) Hyperkalemia (3) Respiratory failure with hypoxia Assessment & Plan: Intubated and sedated. D/C vanco and zosyn per ID (4) ESRD (end stage renal disease) Assessment & Plan: See nephrology note. Last Hemodialysis 09/16/ per nephrology (5) CHF (congestive heart failure) (6) Diabetes mellitus Assessment & Plan: Cont novolog sliding scale. 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 (9) Anoxic encephalopathy syndrome Assessment & Plan: See neruo note. Status: not improved Assessment/Plan Prognosis is poor. KARTIK CLANCY Sep 17, 2016 11:10
[2016-09-17] MEDS ORDERED: KCl 10% 40mEq/30ml liquid NG ONE (12:15)
--- NOTE | 2016-09-17 15:01 | Nephrology Progress Note ---
Assessment/Plan Problem List: (1) ESRD (end stage renal disease) (2) Anoxic encephalopathy syndrome (3) Respiratory failure with hypoxia (4) CHF (congestive heart failure) (5) HTN (hypertension) Plan HD in AM Replete K Vent support Discussed with RN Discussed with Family Discussed with Dr Merino follow labs TF trach and PEG soon Subjective Subjective remains intubated restless Objective Objective Last 24 Hour Vital Signs Date Time Temp Pulse Resp B/P Pulse Ox O2 Delivery O2 Flow Rate FiO2 09/17/16 14:00 99 19 153/45 99 Mechanical Ventilator 30 09/17/16 13:13 91 23 30 09/17/16 13:00 92 19 105/29 99 Mechanical Ventilator 30 09/17/16 12:00 99.1 94 20 124/38 100 Mechanical Ventilator 30 09/17/16 12:00 94 09/17/16 12:00 30 09/17/16 11:38 95 25 100 Mechanical Ventilator 09/17/16 11:20 91 14 100 Mechanical Ventilator 30 09/17/16 11:17 88 17 30 09/17/16 11:00 91 19 107/30 97 Mechanical Ventilator 30 09/17/16 10:00 98 23 154/35 98 Mechanical Ventilator 30 09/17/16 09:49 99.7 09/17/16 09:20 90 16 30 09/17/16 09:00 92 18 153/39 97 Mechanical Ventilator 30 09/17/16 08:27 96 143/38 09/17/16 08:23 143/38 09/17/16 08:00 30 09/17/16 08:00 99 09/17/16 08:00 100.8 99 27 143/38 100 Mechanical Ventilator 30 09/17/16 07:35 97 21 100 Mechanical Ventilator 09/17/16 07:22 98 16 30 09/17/16 07:20 98 16 100 Mechanical Ventilator 09/17/16 07:00 98 22 147/42 100 Mechanical Ventilator 30 09/17/16 06:00 98 26 167/41 99 Mechanical Ventilator 30 09/17/16 05:30 98 20 30 09/17/16 05:00 103 22 151/39 99 Mechanical Ventilator 30 09/17/16 04:00 30 09/17/16 04:00 100.3 98 22 118/40 100 Mechanical Ventilator 30 09/17/16 04:00 91 09/17/16 03:42 96 20 100 Mechanical Ventilator 09/17/16 03:30 92 16 100 Mechanical Ventilator 09/17/16 03:30 93 12 30 09/17/16 03:09 100 Mechanical Ventilator 30 09/17/16 03:00 93 27 146/35 100 Mechanical Ventilator 30 09/17/16 02:00 90 19 96/29 100 Mechanical Ventilator 30 09/17/16 01:30 95 25 30 09/17/16 01:00 93 18 107/31 99 Mechanical Ventilator 30 09/17/16 00:00 90 09/17/16 00:00 99.7 91 20 95/29 99 Mechanical Ventilator 30 09/17/16 00:00 30 09/16/16 23:40 90 22 Mechanical Ventilator 30 09/16/16 23:06 95 24 30 09/16/16 23:05 95 25 100 Mechanical Ventilator 09/16/16 23:05 100 25 100 Mechanical Ventilator 09/16/16 23:00 95 27 140/68 100 Mechanical Ventilator 30 09/16/16 22:00 98 25 153/40 99 Mechanical Ventilator 30 09/16/16 21:30 99 18 30 09/16/16 21:00 101 26 147/41 99 Mechanical Ventilator 30 09/16/16 20:00 30 09/16/16 20:00 98 09/16/16 20:00 99.4 99 24 136/40 100 Mechanical Ventilator 30 09/16/16 19:45 102 23 100 Mechanical Ventilator 30 09/16/16 19:30 98 23 99 Mechanical Ventilator 09/16/16 19:30 99 23 30 09/16/16 19:00 96 21 147/41 100 Mechanical Ventilator 30 09/16/16 18:00 93 20 128/59 98 Mechanical Ventilator 30 09/16/16 17:24 94 16 30 09/16/16 17:13 153/50 09/16/16 17:03 Mechanical Ventilator 4.0 30 09/16/16 17:00 96 20 153/50 98 Mechanical Ventilator 30 09/16/16 16:00 93 09/16/16 16:00 30 09/16/16 16:00 98.7 94 22 141/49 100 Mechanical Ventilator 30 09/16/16 15:25 92 16 30 09/16/16 15:24 91 22 99 Mechanical Ventilator 30 09/16/16 15:13 90 20 100 Mechanical Ventilator 30 09/16/16 15:00 91 20 142/41 98 Mechanical Ventilator 30 Intake and Output 09/16/16 09/17/16 19:00 07:00 Intake Total 638.5 ml 794 ml Output Total 2100 ml Balance -1461.5 ml 794 ml IV Total 188.5 ml 314 ml Tube Feeding 390 ml 480 ml Other 60 ml Hemodialysis UF 2100 ml # Voids 1 1 # Bowel Movements 3 1 Laboratory Tests 09/17/16 04:20: White Blood Count 13.8H, Red Blood Count 3.41L, Hemoglobin 10.1L, Hematocrit 32.2L, Mean Corpuscular Volume 94, Mean Corpuscular Hemoglobin 29.7, Mean Corpuscular Hemoglobin Concent 31.5L, Red Cell Distribution Width 16.4H, Platelet Count 359, Mean Platelet Volume 6.7, Neutrophils (%) (Auto) 71.6, Lymphocytes (%) (Auto) 13.0L, Monocytes (%) (Auto) 11.2H, Eosinophils (%) (Auto ) 2.3, Basophils (%) (Auto) 2.0, Sodium Level 145, Potassium Level 3.3L, Chloride Level 97L, Carbon Dioxide Level 30, Anion Gap 18H, Blood Urea Nitrogen 38#H, Creatinine 5.4H, Estimat Glomerular Filtration Rate 10.6, Glucose Level 243H, Calcium Level 9.9, Total Bilirubin 0.2, Aspartate Amino Transf (AST/SGOT) 49H, Alanine Aminotransferase (ALT/SGPT) 29, Alkaline Phosphatase 85, Total Protein 6.4L, Albumin 3.1L, Globulin 3.3, Albumin/Globulin Ratio 0.9L Height (Feet): 5 Height (Inches): 6.00 Weight (Pounds): 162 Cardiovascular: normal rate Respiratory/Chest: lungs clear Extremities: other - CNADICE Harvey Sep 17, 2016 15:01
[2016-09-17] MEDS ORDERED: Phenytoin Susp 100mg/4ml GT SCH ×2 (16:00→21:00)
--- NOTE | 2016-09-17 17:20 | Infectious Diseases Prog Note ---
Assessment/Plan Assessment/Plan A; Sepsis with new fever & Leukocytosis Aspiration pneumonia s/p Rx COPD s/p cardiac arrest Anoxic encephalopathy ESRD on HD Respiratory failure P; Discontinue Femoral line, Vancomycin X 1 dose, start on Cefepime Subjective ROS Limited/Unobtainable: Yes Constitutional: Reports: fever, other - Tm je=438.8 Neurologic: Reports: confusion, other - on restraint Allergies: Coded Allergies: NIACIN (Verified Allergy, Unknown, ITCHING, 01/30/12) Objective Vital Signs Last 24 Hour Vital Signs Date Time Temp Pulse Resp B/P Pulse Ox O2 Delivery O2 Flow Rate FiO2 09/17/16 16:00 100.5 102 25 158/35 97 Mechanical Ventilator 30 09/17/16 16:00 30 09/17/16 16:00 103 09/17/16 15:59 98 21 100 Mechanical Ventilator 09/17/16 15:48 93 12 100 Mechanical Ventilator 30 09/17/16 15:29 99 28 30 09/17/16 15:00 96 24 127/30 99 Mechanical Ventilator 30 09/17/16 14:00 99 19 153/45 99 Mechanical Ventilator 30 09/17/16 13:13 91 23 30 09/17/16 13:00 92 19 105/29 99 Mechanical Ventilator 30 09/17/16 12:00 99.1 94 20 124/38 100 Mechanical Ventilator 30 09/17/16 12:00 94 09/17/16 12:00 30 09/17/16 11:38 95 25 100 Mechanical Ventilator 09/17/16 11:20 91 14 100 Mechanical Ventilator 30 09/17/16 11:17 88 17 30 09/17/16 11:00 91 19 107/30 97 Mechanical Ventilator 30 09/17/16 10:00 98 23 154/35 98 Mechanical Ventilator 30 09/17/16 09:49 99.7 09/17/16 09:20 90 16 30 09/17/16 09:00 92 18 153/39 97 Mechanical Ventilator 30 09/17/16 08:27 96 143/38 09/17/16 08:23 143/38 09/17/16 08:00 30 09/17/16 08:00 99 09/17/16 08:00 100.8 99 27 143/38 100 Mechanical Ventilator 30 09/17/16 07:35 97 21 100 Mechanical Ventilator 09/17/16 07:22 98 16 30 09/17/16 07:20 98 16 100 Mechanical Ventilator 09/17/16 07:00 98 22 147/42 100 Mechanical Ventilator 30 09/17/16 06:00 98 26 167/41 99 Mechanical Ventilator 30 09/17/16 05:30 98 20 30 09/17/16 05:00 103 22 151/39 99 Mechanical Ventilator 30 09/17/16 04:00 30 09/17/16 04:00 100.3 98 22 118/40 100 Mechanical Ventilator 30 09/17/16 04:00 91 09/17/16 03:42 96 20 100 Mechanical Ventilator 09/17/16 03:30 92 16 100 Mechanical Ventilator 09/17/16 03:30 93 12 30 09/17/16 03:09 100 Mechanical Ventilator 30 09/17/16 03:00 93 27 146/35 100 Mechanical Ventilator 30 09/17/16 02:00 90 19 96/29 100 Mechanical Ventilator 30 09/17/16 01:30 95 25 30 09/17/16 01:00 93 18 107/31 99 Mechanical Ventilator 30 09/17/16 00:00 90 09/17/16 00:00 99.7 91 20 95/29 99 Mechanical Ventilator 30 09/17/16 00:00 30 09/16/16 23:40 90 22 Mechanical Ventilator 30 09/16/16 23:06 95 24 30 09/16/16 23:05 95 25 100 Mechanical Ventilator 09/16/16 23:05 100 25 100 Mechanical Ventilator 09/16/16 23:00 95 27 140/68 100 Mechanical Ventilator 30 09/16/16 22:00 98 25 153/40 99 Mechanical Ventilator 30 09/16/16 21:30 99 18 30 09/16/16 21:00 101 26 147/41 99 Mechanical Ventilator 30 09/16/16 20:00 30 09/16/16 20:00 98 09/16/16 20:00 99.4 99 24 136/40 100 Mechanical Ventilator 30 09/16/16 19:45 102 23 100 Mechanical Ventilator 30 09/16/16 19:30 98 23 99 Mechanical Ventilator 09/16/16 19:30 99 23 30 09/16/16 19:00 96 21 147/41 100 Mechanical Ventilator 30 09/16/16 18:00 93 20 128/59 98 Mechanical Ventilator 30 09/16/16 17:24 94 16 30 Height (Feet): 5 Height (Inches): 6.00 Weight (Pounds): 162 HEENT: other - orally intubated Respiratory/Chest: crackles/rales, other - on ventilator Cardiovascular: tachycardia Extremities: other - R femoral triple lumen Neurologic/Psychiatric: disoriented Microbiology Date/Time Source Procedure Growth Status 09/16/16 10:00 Sputum Gram Stain - Final Resulted 09/16/16 10:00 Sputum Culture - Preliminary Gram Negative Bacillus 1 Resulted 09/15/16 08:30 Stool Clostridium difficile Toxin Assay - Final Complete Laboratory Tests Test 09/17/16 04:20 White Blood Count 13.8 K/UL (4.8-10.8) H Red Blood Count 3.41 M/UL (4.70-6.10) L Hemoglobin 10.1 G/DL (14.2-18.0) L Hematocrit 32.2 % (42.0-52.0) L Mean Corpuscular Volume 94 FL (80-99) Mean Corpuscular Hemoglobin 29.7 PG (27.0-31.0) Mean Corpuscular Hemoglobin Concent 31.5 G/DL (32.0-36.0) L Red Cell Distribution Width 16.4 % (11.6-14.8) H Platelet Count 359 K/UL (150-450) Mean Platelet Volume 6.7 FL (6.5-10.1) Neutrophils (%) (Auto) 71.6 % (45.0-75.0) Lymphocytes (%) (Auto) 13.0 % (20.0-45.0) L Monocytes (%) (Auto) 11.2 % (1.0-10.0) H Eosinophils (%) (Auto) 2.3 % (0.0-3.0) Basophils (%) (Auto) 2.0 % (0.0-2.0) Sodium Level 145 mEQ/L (135-145) Potassium Level 3.3 mEQ/L (3.4-4.9) L Chloride Level 97 mEQ/L (98-107) L Carbon Dioxide Level 30 mEQ/L (20-30) Anion Gap 18 (5-15) H Blood Urea Nitrogen 38 mg/dL (7-23) #H Creatinine 5.4 mg/dL (0.7-1.2) H Estimat Glomerular Filtration Rate 10.6 mL/min (>60) Glucose Level 243 mg/dL (74-106) H Calcium Level 9.9 mg/dL (8.6-10.2) Total Bilirubin 0.2 mg/dL (0.0-1.2) Aspartate Amino Transf (AST/SGOT) 49 U/L (5-40) H Alanine Aminotransferase (ALT/SGPT) 29 U/L (3-41) Alkaline Phosphatase 85 U/L (40-129) Total Protein 6.4 g/dL (6.6-8.7) L Albumin 3.1 g/dL (3.5-5.2) L Globulin 3.3 g/dL Albumin/Globulin Ratio 0.9 (1.0-2.7) L Current Medications Medications (Trade) Dose Ordered Sig/Mark Route PRN Reason Start Time Stop Time Status Last Admin Dose Admin Acetaminophen (Tylenol) 650 mg Q4H PRN ORAL Mild Pain (Pain Scale 1-3) 09/06/16 23:00 10/06/16 22:59 09/17/16 16:24 Albuterol/ Ipratropium (DuoNeb 0.5-3(2.5)mg/3ml) 3 ml Q4HRT HHN 09/16/16 11:00 09/21/16 10:59 09/17/16 15:49 Amlodipine Besylate (Norvasc) 10 mg DAILY GT 09/15/16 10:56 10/07/16 08:59 09/17/16 08:27 Chlorhexidine Gluconate (Lakshmi-Hex 2%) 1 applic DAILY TOPIC 09/10/16 03:30 10/10/16 03:29 09/17/16 08:27 Dextrose (Dextrose 50%) STAT PRN IV Hypoglycemia 09/06/16 23:00 10/06/16 22:59 Heparin Sodium (Porcine) (Heparin 5000 units/ml) 5,000 units EVERY 12 HOURS SUBQ 09/08/16 21:00 10/08/16 20:59 09/17/16 08:25 Heparin Sodium (Porcine) (Heparin Sod 1000 units/ml 10ml) 2,000 unit ONCE ONCE IV 09/18/16 15:15 09/18/16 15:16 UNV Insulin Aspart (NovoLOG) EVERY 6 HOURS SUBQ 09/07/16 18:00 10/07/16 17:59 09/17/16 11:49 Lorazepam (Ativan 2mg/ml 1ml) 1 mg Q1HR PRN IV For Seizure Activity 09/15/16 22:45 09/22/16 22:44 Metoclopramide HCl (Reglan) 5 mg Q6H IVP 09/15/16 22:30 10/15/16 22:29 09/17/16 16:25 Minoxidil (Loniten) 15 mg BID GT 09/15/16 10:57 10/13/16 17:59 09/17/16 08:23 Pantoprazole (Protonix) 40 mg EVERY 12 HOURS IVP 09/15/16 22:30 10/15/16 22:29 09/17/16 08:22 Phenytoin (Dilantin) 200 mg Q8HR@0000,0800,1600 GT 09/17/16 16:00 10/17/16 15:59 09/17/16 16:24 Phenytoin (Dilantin) 500 mg POSTHD GT 09/17/16 21:00 10/17/16 20:59 Polyethylene Glycol (Miralax) 17 gm DAILYPRN PRN ORAL Constipation 09/06/16 23:00 10/06/16 22:59 Sodium Chloride (Sodium Chloride 1000ml bag) 1,000 ml @ 500 mls/hr Q2H PRN IVLG sbp<90 during hd 09/18/16 15:02 10/18/16 15:01 UNV Valproic Acid (Depakene) 1,500 mg Q12HR GT 09/17/16 21:00 10/17/16 20:59 Valproic Acid 1000 mg 1,000 mg POSTHD GT 09/17/16 18:00 10/17/16 17:59 ROZINA BREAUX Sep 17, 2016 17:20
--- NOTE | 2016-09-17 17:28 | Critical Care Progress Note ---
Assessment/Plan Assessment/Plan 1. Status post cardiac arrest. 2. Renal failure with hyperkalemia. 3. Respiratory failure. 4. Anoxic encephalopathy. 5. Status epilepticus 6. Coronary artery disease. 7. History of cardiomyopathy. 8. Diabetes. 9. Hypertension. low grade fever, WBC high has spontaneous TV 300 cc but RR high cannot wean with poor MS and excess secretions, high RR disc w Dr Delatorre called ENT for trach Critical Care - Subjective ROS Limited/Unobtainable: Yes Condition: critical I&O: Intake and Output 09/16/16 09/17/16 19:00 07:00 Intake Total 638.5 ml 794 ml Output Total 2100 ml Balance -1461.5 ml 794 ml IV Total 188.5 ml 314 ml Tube Feeding 390 ml 480 ml Other 60 ml Hemodialysis UF 2100 ml # Voids 1 1 # Bowel Movements 3 1 Critical Care - Objective ET-Tube: 8.0 ET Position: 24 Last 24 Hour Vital Signs Date Time Temp Pulse Resp B/P Pulse Ox O2 Delivery O2 Flow Rate FiO2 09/17/16 16:00 100.5 102 25 158/35 97 Mechanical Ventilator 30 09/17/16 16:00 30 09/17/16 16:00 103 09/17/16 15:59 98 21 100 Mechanical Ventilator 09/17/16 15:48 93 12 100 Mechanical Ventilator 30 09/17/16 15:29 99 28 30 09/17/16 15:00 96 24 127/30 99 Mechanical Ventilator 30 09/17/16 14:00 99 19 153/45 99 Mechanical Ventilator 30 09/17/16 13:13 91 23 30 09/17/16 13:00 92 19 105/29 99 Mechanical Ventilator 30 09/17/16 12:00 99.1 94 20 124/38 100 Mechanical Ventilator 30 09/17/16 12:00 94 09/17/16 12:00 30 09/17/16 11:38 95 25 100 Mechanical Ventilator 09/17/16 11:20 91 14 100 Mechanical Ventilator 30 09/17/16 11:17 88 17 30 09/17/16 11:00 91 19 107/30 97 Mechanical Ventilator 30 09/17/16 10:00 98 23 154/35 98 Mechanical Ventilator 30 09/17/16 09:49 99.7 09/17/16 09:20 90 16 30 09/17/16 09:00 92 18 153/39 97 Mechanical Ventilator 30 09/17/16 08:27 96 143/38 09/17/16 08:23 143/38 09/17/16 08:00 30 09/17/16 08:00 99 09/17/16 08:00 100.8 99 27 143/38 100 Mechanical Ventilator 30 09/17/16 07:35 97 21 100 Mechanical Ventilator 09/17/16 07:22 98 16 30 09/17/16 07:20 98 16 100 Mechanical Ventilator 09/17/16 07:00 98 22 147/42 100 Mechanical Ventilator 30 09/17/16 06:00 98 26 167/41 99 Mechanical Ventilator 30 09/17/16 05:30 98 20 30 09/17/16 05:00 103 22 151/39 99 Mechanical Ventilator 30 09/17/16 04:00 30 09/17/16 04:00 100.3 98 22 118/40 100 Mechanical Ventilator 30 09/17/16 04:00 91 09/17/16 03:42 96 20 100 Mechanical Ventilator 09/17/16 03:30 92 16 100 Mechanical Ventilator 09/17/16 03:30 93 12 30 09/17/16 03:09 100 Mechanical Ventilator 30 09/17/16 03:00 93 27 146/35 100 Mechanical Ventilator 30 09/17/16 02:00 90 19 96/29 100 Mechanical Ventilator 30 09/17/16 01:30 95 25 30 09/17/16 01:00 93 18 107/31 99 Mechanical Ventilator 30 09/17/16 00:00 90 09/17/16 00:00 99.7 91 20 95/29 99 Mechanical Ventilator 30 09/17/16 00:00 30 09/16/16 23:40 90 22 Mechanical Ventilator 30 09/16/16 23:06 95 24 30 09/16/16 23:05 95 25 100 Mechanical Ventilator 09/16/16 23:05 100 25 100 Mechanical Ventilator 09/16/16 23:00 95 27 140/68 100 Mechanical Ventilator 30 09/16/16 22:00 98 25 153/40 99 Mechanical Ventilator 30 09/16/16 21:30 99 18 30 09/16/16 21:00 101 26 147/41 99 Mechanical Ventilator 30 09/16/16 20:00 30 09/16/16 20:00 98 09/16/16 20:00 99.4 99 24 136/40 100 Mechanical Ventilator 30 09/16/16 19:45 102 23 100 Mechanical Ventilator 30 09/16/16 19:30 98 23 99 Mechanical Ventilator 09/16/16 19:30 99 23 30 09/16/16 19:00 96 21 147/41 100 Mechanical Ventilator 30 09/16/16 18:00 93 20 128/59 98 Mechanical Ventilator 30 Status: obtunded - agitated HEENT: atraumatic Lungs: clear Heart: normal rate Objective: seizures vs myoclonus Micro: Microbiology Date/Time Source Procedure Growth Status 09/16/16 10:00 Sputum Gram Stain - Final Resulted 09/16/16 10:00 Sputum Culture - Preliminary Gram Negative Bacillus 1 Resulted 09/15/16 08:30 Stool Clostridium difficile Toxin Assay - Final Complete Accucheck: 275 CHLOE ESQUIVEL Sep 17, 2016 17:28
--- NOTE | 2016-09-17 17:42 | General Progress Note ---
Assessment/Plan Assessment/Plan Assessment - TF intolerance - resolved - possibly due to DM gastroparesis - encephalopathy - resp failure - renal failure - Anemia Recommendations - BID IV PPI - ATC IV reglan - TF. - Monitor residuals - family to think about PEG and make a decision Subjective Allergies: Coded Allergies: NIACIN (Verified Allergy, Unknown, ITCHING, 01/30/12) Subjective Above noted seen in ICU On tube feedings asked to plan on PEG placement discussed indications and risks to both son and daughter - they want time to think about it before giving consent Objective Last 24 Hour Vital Signs Date Time Temp Pulse Resp B/P Pulse Ox O2 Delivery O2 Flow Rate FiO2 09/17/16 16:00 100.5 102 25 158/35 97 Mechanical Ventilator 30 09/17/16 16:00 30 09/17/16 16:00 103 09/17/16 15:59 98 21 100 Mechanical Ventilator 09/17/16 15:48 93 12 100 Mechanical Ventilator 30 09/17/16 15:29 99 28 30 09/17/16 15:00 96 24 127/30 99 Mechanical Ventilator 30 09/17/16 14:00 99 19 153/45 99 Mechanical Ventilator 30 09/17/16 13:13 91 23 30 09/17/16 13:00 92 19 105/29 99 Mechanical Ventilator 30 09/17/16 12:00 99.1 94 20 124/38 100 Mechanical Ventilator 30 09/17/16 12:00 94 09/17/16 12:00 30 09/17/16 11:38 95 25 100 Mechanical Ventilator 09/17/16 11:20 91 14 100 Mechanical Ventilator 30 09/17/16 11:17 88 17 30 09/17/16 11:00 91 19 107/30 97 Mechanical Ventilator 30 09/17/16 10:00 98 23 154/35 98 Mechanical Ventilator 30 09/17/16 09:49 99.7 09/17/16 09:20 90 16 30 09/17/16 09:00 92 18 153/39 97 Mechanical Ventilator 30 09/17/16 08:27 96 143/38 09/17/16 08:23 143/38 09/17/16 08:00 30 09/17/16 08:00 99 09/17/16 08:00 100.8 99 27 143/38 100 Mechanical Ventilator 30 09/17/16 07:35 97 21 100 Mechanical Ventilator 09/17/16 07:22 98 16 30 09/17/16 07:20 98 16 100 Mechanical Ventilator 09/17/16 07:00 98 22 147/42 100 Mechanical Ventilator 30 09/17/16 06:00 98 26 167/41 99 Mechanical Ventilator 30 09/17/16 05:30 98 20 30 09/17/16 05:00 103 22 151/39 99 Mechanical Ventilator 30 09/17/16 04:00 30 09/17/16 04:00 100.3 98 22 118/40 100 Mechanical Ventilator 30 09/17/16 04:00 91 09/17/16 03:42 96 20 100 Mechanical Ventilator 09/17/16 03:30 92 16 100 Mechanical Ventilator 09/17/16 03:30 93 12 30 09/17/16 03:09 100 Mechanical Ventilator 30 09/17/16 03:00 93 27 146/35 100 Mechanical Ventilator 30 09/17/16 02:00 90 19 96/29 100 Mechanical Ventilator 30 09/17/16 01:30 95 25 30 09/17/16 01:00 93 18 107/31 99 Mechanical Ventilator 30 09/17/16 00:00 90 09/17/16 00:00 99.7 91 20 95/29 99 Mechanical Ventilator 30 09/17/16 00:00 30 09/16/16 23:40 90 22 Mechanical Ventilator 30 09/16/16 23:06 95 24 30 09/16/16 23:05 95 25 100 Mechanical Ventilator 09/16/16 23:05 100 25 100 Mechanical Ventilator 09/16/16 23:00 95 27 140/68 100 Mechanical Ventilator 30 09/16/16 22:00 98 25 153/40 99 Mechanical Ventilator 30 09/16/16 21:30 99 18 30 09/16/16 21:00 101 26 147/41 99 Mechanical Ventilator 30 09/16/16 20:00 30 09/16/16 20:00 98 09/16/16 20:00 99.4 99 24 136/40 100 Mechanical Ventilator 30 09/16/16 19:45 102 23 100 Mechanical Ventilator 30 09/16/16 19:30 98 23 99 Mechanical Ventilator 09/16/16 19:30 99 23 30 09/16/16 19:00 96 21 147/41 100 Mechanical Ventilator 30 09/16/16 18:00 93 20 128/59 98 Mechanical Ventilator 30 Intake and Output 09/16/16 09/17/16 19:00 07:00 Intake Total 638.5 ml 794 ml Output Total 2100 ml Balance -1461.5 ml 794 ml IV Total 188.5 ml 314 ml Tube Feeding 390 ml 480 ml Other 60 ml Hemodialysis UF 2100 ml # Voids 1 1 # Bowel Movements 3 1 Laboratory Tests 09/17/16 04:20: White Blood Count 13.8H, Red Blood Count 3.41L, Hemoglobin 10.1L, Hematocrit 32.2L, Mean Corpuscular Volume 94, Mean Corpuscular Hemoglobin 29.7, Mean Corpuscular Hemoglobin Concent 31.5L, Red Cell Distribution Width 16.4H, Platelet Count 359, Mean Platelet Volume 6.7, Neutrophils (%) (Auto) 71.6, Lymphocytes (%) (Auto) 13.0L, Monocytes (%) (Auto) 11.2H, Eosinophils (%) (Auto ) 2.3, Basophils (%) (Auto) 2.0, Sodium Level 145, Potassium Level 3.3L, Chloride Level 97L, Carbon Dioxide Level 30, Anion Gap 18H, Blood Urea Nitrogen 38#H, Creatinine 5.4H, Estimat Glomerular Filtration Rate 10.6, Glucose Level 243H, Calcium Level 9.9, Total Bilirubin 0.2, Aspartate Amino Transf (AST/SGOT) 49H, Alanine Aminotransferase (ALT/SGPT) 29, Alkaline Phosphatase 85, Total Protein 6.4L, Albumin 3.1L, Globulin 3.3, Albumin/Globulin Ratio 0.9L Height (Feet): 5 Height (Inches): 6.00 Weight (Pounds): 162 Objective Intubated and unresponsive NCAT, (+) feeding tube and ETT supple Coarse BS and occ wheeze RR soft ND abdomen no edema ANNE CURRAN Sep 17, 2016 17:41
--- NOTE | 2016-09-17 17:53 | Neurology Progress Note ---
Interim History Interim History ROS Limited/Unobtainable: Yes Complaints: coma Events: off versed, no sz noted ,restless, EEG no sz activity, now with FEVER Objective Physical Exam Last Vital Signs Date Time Temp Pulse Resp B/P Pulse Ox O2 Delivery O2 Flow Rate FiO2 09/17/16 17:00 100 21 155/41 99 Mechanical Ventilator 30 09/17/16 16:00 100.5 09/16/16 17:03 4.0 Laboratory Tests Test 09/17/16 04:20 White Blood Count 13.8 K/UL (4.8-10.8) H Red Blood Count 3.41 M/UL (4.70-6.10) L Hemoglobin 10.1 G/DL (14.2-18.0) L Hematocrit 32.2 % (42.0-52.0) L Mean Corpuscular Volume 94 FL (80-99) Mean Corpuscular Hemoglobin 29.7 PG (27.0-31.0) Mean Corpuscular Hemoglobin Concent 31.5 G/DL (32.0-36.0) L Red Cell Distribution Width 16.4 % (11.6-14.8) H Platelet Count 359 K/UL (150-450) Mean Platelet Volume 6.7 FL (6.5-10.1) Neutrophils (%) (Auto) 71.6 % (45.0-75.0) Lymphocytes (%) (Auto) 13.0 % (20.0-45.0) L Monocytes (%) (Auto) 11.2 % (1.0-10.0) H Eosinophils (%) (Auto) 2.3 % (0.0-3.0) Basophils (%) (Auto) 2.0 % (0.0-2.0) Sodium Level 145 mEQ/L (135-145) Potassium Level 3.3 mEQ/L (3.4-4.9) L Chloride Level 97 mEQ/L (98-107) L Carbon Dioxide Level 30 mEQ/L (20-30) Anion Gap 18 (5-15) H Blood Urea Nitrogen 38 mg/dL (7-23) #H Creatinine 5.4 mg/dL (0.7-1.2) H Estimat Glomerular Filtration Rate 10.6 mL/min (>60) Glucose Level 243 mg/dL (74-106) H Calcium Level 9.9 mg/dL (8.6-10.2) Total Bilirubin 0.2 mg/dL (0.0-1.2) Aspartate Amino Transf (AST/SGOT) 49 U/L (5-40) H Alanine Aminotransferase (ALT/SGPT) 29 U/L (3-41) Alkaline Phosphatase 85 U/L (40-129) Total Protein 6.4 g/dL (6.6-8.7) L Albumin 3.1 g/dL (3.5-5.2) L Globulin 3.3 g/dL Albumin/Globulin Ratio 0.9 (1.0-2.7) L General: no acute distress, other - intubated no twitching noted restless Head: atraumatic Neck: other - rigid Neurologic Exam Mental Status: other - comatose, verbally unresponcive, noted spontan lifting both arms Speech: other Language: other Cranial Nerve II: no papilledema Cranial Nerves III, IV, : other - p 2mm sluggish aom-minor on doll,s Cranial Nerve V: other - +corneal Cranial Nerve VII: no facial asymmetry Cranial Nerve VIII: other Cranial Nerve IX: other - poor gag on suction Cranial Nerve XI: other Cranial Nerve XII: tongue midline Motor System: other - flaccid, some spont movement arms Sensory: other Coordination: other Deep Tendon Reflexes: 0 ankle (L), 0 ankle (R), 0 knee (L), 0 knee (R), 1+ ankle (L), 1+ ankle (R), 1+ bicep (L), 1+ bicep (R), 1+ brachioradialis (L), 1+ brachioradialis (R), 1+ knee (L), 1+ knee (R), 1+ tricep (L), 1+ tricep (R) Reflexes: extensor plantar (R), mute plantar (L) Stance: other Gait: other Impression/Recommendations Problems: (1) Anoxic encephalopathy syndrome (2) 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
--- NOTE | 2016-09-17 18:29 | Cardiology Progress Note ---
Assessment/Plan Assessment/Plan cardiopulm arrest anoxic encephalopathy esrd on hd noncompliant with dialysis htn chronic diastolic failure hx cad status epilepticus telel neg sinus rare pvc on the vent dialysis as planned moves spont bp seem ok d/w rn bioethics ntio seem any change neuro reyna trach plans noted Subjective ROS Limited/Unobtainable: Yes Subjective on verntnot responsive except to noxious stimuli grimaces Objective Last 24 Hour Vital Signs Date Time Temp Pulse Resp B/P Pulse Ox O2 Delivery O2 Flow Rate FiO2 09/17/16 18:21 147/43 09/17/16 18:00 100 24 147/43 99 Mechanical Ventilator 30 09/17/16 17:53 101 26 30 09/17/16 17:30 99.7 09/17/16 17:00 100 21 155/41 99 Mechanical Ventilator 30 09/17/16 16:00 100.5 102 25 158/35 97 Mechanical Ventilator 30 09/17/16 16:00 30 09/17/16 16:00 103 09/17/16 15:59 98 21 100 Mechanical Ventilator 09/17/16 15:48 93 12 100 Mechanical Ventilator 30 09/17/16 15:29 99 28 30 09/17/16 15:00 96 24 127/30 99 Mechanical Ventilator 30 09/17/16 14:00 99 19 153/45 99 Mechanical Ventilator 30 09/17/16 13:13 91 23 30 09/17/16 13:00 92 19 105/29 99 Mechanical Ventilator 30 09/17/16 12:00 99.1 94 20 124/38 100 Mechanical Ventilator 30 09/17/16 12:00 94 09/17/16 12:00 30 09/17/16 11:38 95 25 100 Mechanical Ventilator 09/17/16 11:20 91 14 100 Mechanical Ventilator 30 09/17/16 11:17 88 17 30 09/17/16 11:00 91 19 107/30 97 Mechanical Ventilator 30 09/17/16 10:00 98 23 154/35 98 Mechanical Ventilator 30 09/17/16 09:20 90 16 30 09/17/16 09:00 92 18 153/39 97 Mechanical Ventilator 30 09/17/16 08:27 96 143/38 09/17/16 08:23 143/38 09/17/16 08:00 30 09/17/16 08:00 99 09/17/16 08:00 100.8 99 27 143/38 100 Mechanical Ventilator 30 09/17/16 07:35 97 21 100 Mechanical Ventilator 09/17/16 07:22 98 16 30 09/17/16 07:20 98 16 100 Mechanical Ventilator 09/17/16 07:00 98 22 147/42 100 Mechanical Ventilator 30 09/17/16 06:00 98 26 167/41 99 Mechanical Ventilator 30 09/17/16 05:30 98 20 30 09/17/16 05:00 103 22 151/39 99 Mechanical Ventilator 30 09/17/16 04:00 30 09/17/16 04:00 100.3 98 22 118/40 100 Mechanical Ventilator 30 09/17/16 04:00 91 09/17/16 03:42 96 20 100 Mechanical Ventilator 09/17/16 03:30 92 16 100 Mechanical Ventilator 09/17/16 03:30 93 12 30 09/17/16 03:09 100 Mechanical Ventilator 30 09/17/16 03:00 93 27 146/35 100 Mechanical Ventilator 30 09/17/16 02:00 90 19 96/29 100 Mechanical Ventilator 30 09/17/16 01:30 95 25 30 09/17/16 01:00 93 18 107/31 99 Mechanical Ventilator 30 09/17/16 00:00 90 09/17/16 00:00 99.7 91 20 95/29 99 Mechanical Ventilator 30 09/17/16 00:00 30 09/16/16 23:40 90 22 Mechanical Ventilator 30 09/16/16 23:06 95 24 30 09/16/16 23:05 95 25 100 Mechanical Ventilator 09/16/16 23:05 100 25 100 Mechanical Ventilator 09/16/16 23:00 95 27 140/68 100 Mechanical Ventilator 30 09/16/16 22:00 98 25 153/40 99 Mechanical Ventilator 30 09/16/16 21:30 99 18 30 09/16/16 21:00 101 26 147/41 99 Mechanical Ventilator 30 09/16/16 20:00 30 09/16/16 20:00 98 09/16/16 20:00 99.4 99 24 136/40 100 Mechanical Ventilator 30 09/16/16 19:45 102 23 100 Mechanical Ventilator 30 09/16/16 19:30 98 23 99 Mechanical Ventilator 09/16/16 19:30 99 23 30 09/16/16 19:00 96 21 147/41 100 Mechanical Ventilator 30 General Appearance: no apparent distress, on vent Neck: supple Cardiovascular: normal rate, regular rhythm Respiratory/Chest: lungs clear, normal breath sounds Abdomen: normal bowel sounds, non tender, soft Extremities: no swelling Intake and Output 09/16/16 09/17/16 19:00 07:00 Intake Total 638.5 ml 794 ml Output Total 2100 ml Balance -1461.5 ml 794 ml IV Total 188.5 ml 314 ml Tube Feeding 390 ml 480 ml Other 60 ml Hemodialysis UF 2100 ml # Voids 1 1 # Bowel Movements 3 1 Laboratory Tests Test 09/17/16 04:20 White Blood Count 13.8 K/UL (4.8-10.8) H Red Blood Count 3.41 M/UL (4.70-6.10) L Hemoglobin 10.1 G/DL (14.2-18.0) L Hematocrit 32.2 % (42.0-52.0) L Mean Corpuscular Volume 94 FL (80-99) Mean Corpuscular Hemoglobin 29.7 PG (27.0-31.0) Mean Corpuscular Hemoglobin Concent 31.5 G/DL (32.0-36.0) L Red Cell Distribution Width 16.4 % (11.6-14.8) H Platelet Count 359 K/UL (150-450) Mean Platelet Volume 6.7 FL (6.5-10.1) Neutrophils (%) (Auto) 71.6 % (45.0-75.0) Lymphocytes (%) (Auto) 13.0 % (20.0-45.0) L Monocytes (%) (Auto) 11.2 % (1.0-10.0) H Eosinophils (%) (Auto) 2.3 % (0.0-3.0) Basophils (%) (Auto) 2.0 % (0.0-2.0) Sodium Level 145 mEQ/L (135-145) Potassium Level 3.3 mEQ/L (3.4-4.9) L Chloride Level 97 mEQ/L (98-107) L Carbon Dioxide Level 30 mEQ/L (20-30) Anion Gap 18 (5-15) H Blood Urea Nitrogen 38 mg/dL (7-23) #H Creatinine 5.4 mg/dL (0.7-1.2) H Estimat Glomerular Filtration Rate 10.6 mL/min (>60) Glucose Level 243 mg/dL (74-106) H Calcium Level 9.9 mg/dL (8.6-10.2) Total Bilirubin 0.2 mg/dL (0.0-1.2) Aspartate Amino Transf (AST/SGOT) 49 U/L (5-40) H Alanine Aminotransferase (ALT/SGPT) 29 U/L (3-41) Alkaline Phosphatase 85 U/L (40-129) Total Protein 6.4 g/dL (6.6-8.7) L Albumin 3.1 g/dL (3.5-5.2) L Globulin 3.3 g/dL Albumin/Globulin Ratio 0.9 (1.0-2.7) L Microbiology Date/Time Source Procedure Growth Status 09/16/16 10:00 Sputum Gram Stain - Final Resulted 09/16/16 10:00 Sputum Culture - Preliminary Gram Negative Bacillus 1 Resulted 09/15/16 08:30 Stool Clostridium difficile Toxin Assay - Final Complete HUSSEIN CAGE Sep 17, 2016 18:29
[2016-09-17] MEDS ORDERED: Cefepime HCl 1 GM in D5W 55 ML IVPB ONE (20:00)
[2016-09-17] MEDS: Valproic Acid 250mg/5ml Liquid GT SCH (20:07)
[2016-09-17] MEDS ORDERED: Vancomycin 1250mg/D5W 275ml IVPB ONE ×2 (21:00)
[2016-09-18] VITALS (25 sets, daily range): BP systolic 94–166; BP diastolic 28–59
[2016-09-18] MEDS: NovoLOG Insulin Flexpen SUBQ SCH ×5 (00:55→23:56)
[2016-09-18] MEDS: DuoNeb 0.5-3(2.5)mg/3ml neb HHN SCH ×6 (03:40→23:09)
[2016-09-18] MEDS ORDERED: Phenytoin Susp 100mg/4ml GT SCH (04:00)
[2016-09-18] MEDS: Metoclopramide 10mg/2ml Inj IVP SCH ×4 (04:38→22:07)
[2016-09-18 05:40] LABS: BASOPHILS % (AUTO) 1.6 % (0.0-2.0); EOSINOPHILS % (AUTO) 1.9 % (0.0-3.0); LYMPHOCYTES % (AUTO) 10.4 % (20.0-45.0); MEAN CORPUSCULAR HEMOGLOBIN 30.3 PG (27.0-31.0); MEAN CORPUSCULAR HGB CONC 31.9 G/DL (32.0-36.0); MEAN CORPUSCULAR VOLUME 95 FL (80-99); MEAN PLATELET VOLUME 6.7 FL (6.5-10.1); MONOCYTES % (AUTO) 12.8 % (1.0-10.0); NEUTROPHILS % (AUTO) 73.3 % (45.0-75.0); PLATELET COUNT 394 K/UL (150-450); RED BLOOD COUNT 3.24 M/UL (4.70-6.10); RED CELL DISTRIBUTION WIDTH 16.1 % (11.6-14.8); WHITE BLOOD COUNT 13.8 K/UL (4.8-10.8)
[2016-09-18 05:51] LABS: CALCIUM 10.3 mg/dL (8.6-10.2); CREATININE 7.2 mg/dL (0.7-1.2); GLOMERULAR FILTRATION RATE 7.6 mL/min (>60); POTASSIUM 3.7 mEQ/L (3.4-4.9)
[2016-09-18] MEDS ORDERED: Heparin Sod 1000 units/ml 10ml IV ONE (06:00)
[2016-09-18] MEDS: Valproic Acid 250mg/5ml Liquid GT SCH ×2 (09:21→20:33)
[2016-09-18] MEDS: Pantoprazole Inj IVP SCH ×2 (09:22→20:33)
[2016-09-18] MEDS: Minoxidil 10mg tab GT SCH ×2 (09:22→19:06)
[2016-09-18] MEDS: Heparin 5000 units/ml inj SUBQ SCH ×2 (09:23→20:34)
[2016-09-18] MEDS: Dyna-Hex 2% Top Sol 8oz TOPIC SCH (09:23)
--- NOTE | 2016-09-18 10:06 | General Progress Note ---
Assessment/Plan Assessment/Plan Assessment - TF intolerance - resolved - possibly due to DM gastroparesis - encephalopathy - resp failure - renal failure - Anemia Recommendations - BID IV PPI - ATC IV reglan - TF. - Monitor residuals - family to think about PEG and make a decision Subjective Allergies: Coded Allergies: NIACIN (Verified Allergy, Unknown, ITCHING, 01/30/12) Subjective Above noted seen in ICU On tube feedings some spontaneous arm movements noted Objective Last 24 Hour Vital Signs Date Time Temp Pulse Resp B/P Pulse Ox O2 Delivery O2 Flow Rate FiO2 09/18/16 09:22 111/30 09/18/16 09:22 93 111/30 09/18/16 08:00 30 09/18/16 08:00 100.2 93 12 137/59 100 Mechanical Ventilator 30 09/18/16 07:00 95 28 141/56 98 Mechanical Ventilator 30 09/18/16 06:00 92 28 109/29 98 Mechanical Ventilator 30 09/18/16 05:00 103 25 114/38 99 Mechanical Ventilator 30 09/18/16 04:48 104 25 30 09/18/16 04:00 100.9 102 21 166/44 99 Mechanical Ventilator 30 09/18/16 04:00 102 09/18/16 04:00 30 09/18/16 03:41 102 15 100 Mechanical Ventilator 09/18/16 03:41 101 15 100 Mechanical Ventilator 30 09/18/16 03:22 100 21 30 09/18/16 03:00 102 20 165/45 99 Mechanical Ventilator 30 09/18/16 02:00 99 21 150/41 99 Mechanical Ventilator 09/18/16 01:59 101.2 09/18/16 01:00 101.0 09/18/16 01:00 102 23 123/48 98 Mechanical Ventilator 30 09/18/16 00:47 102 25 30 09/18/16 00:00 30 09/18/16 00:00 96 09/18/16 00:00 102 21 151/45 100 Mechanical Ventilator 09/17/16 23:13 101 14 100 Mechanical Ventilator 09/17/16 23:12 98 16 100 Mechanical Ventilator 30 09/17/16 23:10 98 18 30 09/17/16 23:00 99 23 150/46 100 Mechanical Ventilator 30 09/17/16 22:00 97 24 105/35 99 Mechanical Ventilator 30 09/17/16 21:00 100 27 136/37 99 Mechanical Ventilator 30 09/17/16 20:48 102 23 30 09/17/16 20:35 Mechanical Ventilator 30 09/17/16 20:00 100.1 98 18 140/46 Mechanical Ventilator 30 09/17/16 20:00 30 09/17/16 20:00 99 09/17/16 19:25 96 12 100 Mechanical Ventilator 09/17/16 19:24 97 11 100 Mechanical Ventilator 30 09/17/16 19:23 99 16 30 09/17/16 19:00 102 22 142/65 Mechanical Ventilator 30 09/17/16 18:21 147/43 09/17/16 18:00 100 24 147/43 99 Mechanical Ventilator 30 09/17/16 17:53 101 26 30 09/17/16 17:00 100 21 155/41 99 Mechanical Ventilator 30 09/17/16 16:00 100.5 102 25 158/35 97 Mechanical Ventilator 30 09/17/16 16:00 30 09/17/16 16:00 103 09/17/16 15:59 98 21 100 Mechanical Ventilator 09/17/16 15:48 93 12 100 Mechanical Ventilator 30 09/17/16 15:29 99 28 30 09/17/16 15:00 96 24 127/30 99 Mechanical Ventilator 30 09/17/16 14:00 99 19 153/45 99 Mechanical Ventilator 30 09/17/16 13:13 91 23 30 09/17/16 13:00 92 19 105/29 99 Mechanical Ventilator 30 09/17/16 12:00 99.1 94 20 124/38 100 Mechanical Ventilator 30 09/17/16 12:00 94 09/17/16 12:00 30 09/17/16 11:38 95 25 100 Mechanical Ventilator 09/17/16 11:20 91 14 100 Mechanical Ventilator 30 09/17/16 11:17 88 17 30 09/17/16 11:00 91 19 107/30 97 Mechanical Ventilator 30 Intake and Output 09/17/16 09/18/16 19:00 07:00 Intake Total 609 ml 980.000 ml Output Total 0 ml Balance 609 ml 980.000 ml Free Water 190 ml IV Total 129 ml 330.000 ml Tube Feeding 480 ml 460 ml Output Urine Total 0 ml Laboratory Tests 09/18/16 04:00: White Blood Count 13.8H, Red Blood Count 3.24L, Hemoglobin 9.8L, Hematocrit 30.8L, Mean Corpuscular Volume 95, Mean Corpuscular Hemoglobin 30.3, Mean Corpuscular Hemoglobin Concent 31.9L, Red Cell Distribution Width 16.1H, Platelet Count 394, Mean Platelet Volume 6.7, Neutrophils (%) (Auto) 73.3, Lymphocytes (%) (Auto) 10.4L, Monocytes (%) (Auto) 12.8H, Eosinophils (%) (Auto ) 1.9, Basophils (%) (Auto) 1.6, Sodium Level 145, Potassium Level 3.7, Chloride Level 96L, Carbon Dioxide Level 28, Anion Gap 21H, Blood Urea Nitrogen 63#H, Creatinine 7.2H, Estimat Glomerular Filtration Rate 7.6, Glucose Level 277H, Calcium Level 10.3H Height (Feet): 5 Height (Inches): 6.00 Weight (Pounds): 167 Objective Intubated and unresponsive NCAT, (+) feeding tube and ETT supple Coarse BS and occ wheeze RR soft ND abdomen no edema ANNE CURRAN Sep 18, 2016 10:06
--- NOTE | 2016-09-18 12:06 | Nephrology Progress Note ---
Assessment/Plan Problem List: (1) ESRD (end stage renal disease) (2) Anoxic encephalopathy syndrome (3) Respiratory failure with hypoxia (4) CHF (congestive heart failure) (5) HTN (hypertension) Plan HD as tolerated Replete K Vent support Discussed with RN follow labs TF Family to decide about PEG Subjective Subjective remains intubated Objective Objective Last 24 Hour Vital Signs Date Time Temp Pulse Resp B/P Pulse Ox O2 Delivery O2 Flow Rate FiO2 09/18/16 11:09 93 18 30 09/18/16 10:48 92 19 100 Mechanical Ventilator 09/18/16 10:37 30 09/18/16 10:35 92 17 99 Mechanical Ventilator 30 09/18/16 09:22 111/30 09/18/16 09:22 93 111/30 09/18/16 08:59 93 24 30 09/18/16 08:00 30 09/18/16 08:00 100.2 93 12 137/59 100 Mechanical Ventilator 30 09/18/16 07:53 91 17 100 Mechanical Ventilator 09/18/16 07:00 95 28 141/56 98 Mechanical Ventilator 30 09/18/16 06:53 91 24 99 Mechanical Ventilator 09/18/16 06:52 91 17 30 09/18/16 06:00 92 28 109/29 98 Mechanical Ventilator 30 09/18/16 05:00 103 25 114/38 99 Mechanical Ventilator 30 09/18/16 04:48 104 25 30 09/18/16 04:00 100.9 102 21 166/44 99 Mechanical Ventilator 30 09/18/16 04:00 102 09/18/16 04:00 30 09/18/16 03:41 102 15 100 Mechanical Ventilator 09/18/16 03:41 101 15 100 Mechanical Ventilator 30 09/18/16 03:22 100 21 30 09/18/16 03:00 102 20 165/45 99 Mechanical Ventilator 30 09/18/16 02:00 99 21 150/41 99 Mechanical Ventilator 30 09/18/16 01:59 101.2 09/18/16 01:00 101.0 09/18/16 01:00 102 23 123/48 98 Mechanical Ventilator 30 09/18/16 00:47 102 25 30 09/18/16 00:00 30 09/18/16 00:00 96 09/18/16 00:00 102 21 151/45 100 Mechanical Ventilator 30 09/17/16 23:13 101 14 100 Mechanical Ventilator 09/17/16 23:12 98 16 100 Mechanical Ventilator 30 09/17/16 23:10 98 18 30 09/17/16 23:00 99 23 150/46 100 Mechanical Ventilator 30 09/17/16 22:00 97 24 105/35 99 Mechanical Ventilator 30 09/17/16 21:00 100 27 136/37 99 Mechanical Ventilator 30 09/17/16 20:48 102 23 30 09/17/16 20:35 Mechanical Ventilator 30 09/17/16 20:00 100.1 98 18 140/46 Mechanical Ventilator 30 09/17/16 20:00 30 09/17/16 20:00 99 09/17/16 19:25 96 12 100 Mechanical Ventilator 09/17/16 19:24 97 11 100 Mechanical Ventilator 30 09/17/16 19:23 99 16 30 09/17/16 19:00 102 22 142/65 Mechanical Ventilator 30 09/17/16 18:21 147/43 09/17/16 18:00 100 24 147/43 99 Mechanical Ventilator 30 09/17/16 17:53 101 26 30 09/17/16 17:00 100 21 155/41 99 Mechanical Ventilator 30 09/17/16 16:00 100.5 102 25 158/35 97 Mechanical Ventilator 30 09/17/16 16:00 30 09/17/16 16:00 103 09/17/16 15:59 98 21 100 Mechanical Ventilator 09/17/16 15:48 93 12 100 Mechanical Ventilator 30 09/17/16 15:29 99 28 30 09/17/16 15:00 96 24 127/30 99 Mechanical Ventilator 30 09/17/16 14:00 99 19 153/45 99 Mechanical Ventilator 30 09/17/16 13:13 91 23 30 09/17/16 13:00 92 19 105/29 99 Mechanical Ventilator 30 Intake and Output 09/17/16 09/18/16 19:00 07:00 Intake Total 609 ml 980.000 ml Output Total 0 ml Balance 609 ml 980.000 ml Free Water 190 ml IV Total 129 ml 330.000 ml Tube Feeding 480 ml 460 ml Output Urine Total 0 ml Laboratory Tests 09/18/16 04:00: White Blood Count 13.8H, Red Blood Count 3.24L, Hemoglobin 9.8L, Hematocrit 30.8L, Mean Corpuscular Volume 95, Mean Corpuscular Hemoglobin 30.3, Mean Corpuscular Hemoglobin Concent 31.9L, Red Cell Distribution Width 16.1H, Platelet Count 394, Mean Platelet Volume 6.7, Neutrophils (%) (Auto) 73.3, Lymphocytes (%) (Auto) 10.4L, Monocytes (%) (Auto) 12.8H, Eosinophils (%) (Auto ) 1.9, Basophils (%) (Auto) 1.6, Sodium Level 145, Potassium Level 3.7, Chloride Level 96L, Carbon Dioxide Level 28, Anion Gap 21H, Blood Urea Nitrogen 63#H, Creatinine 7.2H, Estimat Glomerular Filtration Rate 7.6, Glucose Level 277H, Calcium Level 10.3H Height (Feet): 5 Height (Inches): 6.00 Weight (Pounds): 167 Cardiovascular: normal rate Respiratory/Chest: lungs clear Extremities: other - no edema CANDICE BREAUX Sep 18, 2016 12:06
--- NOTE | 2016-09-18 12:59 | Infectious Diseases Prog Note ---
Assessment/Plan Assessment/Plan A; Sepsis with new fever & Leukocytosis pneumonia with Enterobacter COPD s/p cardiac arrest Anoxic encephalopathy ESRD on HD Respiratory failure P; Discontinue Femoral line, Vancomycin & Cefepime repeat blood cultures Subjective ROS Limited/Unobtainable: Yes Constitutional: Reports: fever, other - t [id number] Cardiovascular: Reports: other - femoral line can not came out, has some resistance Neurologic: Reports: confusion, other - on restraint Allergies: Coded Allergies: NIACIN (Verified Allergy, Unknown, ITCHING, 01/30/12) Objective Vital Signs Last 24 Hour Vital Signs Date Time Temp Pulse Resp B/P Pulse Ox O2 Delivery O2 Flow Rate FiO2 09/18/16 11:09 93 18 30 09/18/16 10:48 92 19 100 Mechanical Ventilator 09/18/16 10:37 30 09/18/16 10:35 92 17 99 Mechanical Ventilator 30 09/18/16 10:21 99.4 09/18/16 09:22 111/30 09/18/16 09:22 93 111/09/18/16 08:59 93 24 30 09/18/16 08:00 30 09/18/16 08:00 100.2 93 12 137/59 100 Mechanical Ventilator 30 09/18/16 07:53 91 17 100 Mechanical Ventilator 09/18/16 07:00 95 28 141/56 98 Mechanical Ventilator 30 09/18/16 06:53 91 24 99 Mechanical Ventilator 09/18/16 06:52 91 17 30 09/18/16 06:00 92 28 109/29 98 Mechanical Ventilator 30 09/18/16 05:00 103 25 114/38 99 Mechanical Ventilator 30 09/18/16 04:48 104 25 30 09/18/16 04:00 100.9 102 21 166/44 99 Mechanical Ventilator 30 09/18/16 04:00 102 09/18/16 04:00 30 09/18/16 03:41 102 15 100 Mechanical Ventilator 09/18/16 03:41 101 15 100 Mechanical Ventilator 30 09/18/16 03:22 100 21 30 09/18/16 03:00 102 20 165/45 99 Mechanical Ventilator 30 09/18/16 02:00 99 21 150/41 99 Mechanical Ventilator 30 09/18/16 01:00 101.0 09/18/16 01:00 102 23 123/48 98 Mechanical Ventilator 30 09/18/16 00:47 102 25 30 09/18/16 00:00 30 09/18/16 00:00 96 09/18/16 00:00 102 21 151/45 100 Mechanical Ventilator 30 09/17/16 23:13 101 14 100 Mechanical Ventilator 09/17/16 23:12 98 16 100 Mechanical Ventilator 30 09/17/16 23:10 98 18 30 09/17/16 23:00 99 23 150/46 100 Mechanical Ventilator 30 09/17/16 22:00 97 24 105/35 99 Mechanical Ventilator 30 09/17/16 21:00 100 27 136/37 99 Mechanical Ventilator 30 09/17/16 20:48 102 23 30 09/17/16 20:35 Mechanical Ventilator 30 09/17/16 20:00 100.1 98 18 140/46 Mechanical Ventilator 30 09/17/16 20:00 30 09/17/16 20:00 99 09/17/16 19:25 96 12 100 Mechanical Ventilator 09/17/16 19:24 97 11 100 Mechanical Ventilator 30 09/17/16 19:23 99 16 30 09/17/16 19:00 102 22 142/65 Mechanical Ventilator 30 09/17/16 18:21 147/43 09/17/16 18:00 100 24 147/43 99 Mechanical Ventilator 30 09/17/16 17:53 101 26 30 09/17/16 17:00 100 21 155/41 99 Mechanical Ventilator 30 09/17/16 16:00 100.5 102 25 158/35 97 Mechanical Ventilator 30 09/17/16 16:00 30 09/17/16 16:00 103 09/17/16 15:59 98 21 100 Mechanical Ventilator 09/17/16 15:48 93 12 100 Mechanical Ventilator 30 09/17/16 15:29 99 28 30 09/17/16 15:00 96 24 127/30 99 Mechanical Ventilator 30 09/17/16 14:00 99 19 153/45 99 Mechanical Ventilator 30 09/17/16 13:13 91 23 30 09/17/16 13:00 92 19 105/29 99 Mechanical Ventilator 30 Height (Feet): 5 Height (Inches): 6.00 Weight (Pounds): 167 HEENT: other - orally intubated Respiratory/Chest: rhonchi - bilaterally, other - on ventilator Abdomen: distended, other - umbelical hernia Extremities: other - R femoral line Neurologic/Psychiatric: disoriented Microbiology Date/Time Source Procedure Growth Status 09/16/16 10:00 Sputum Gram Stain - Final Complete 09/16/16 10:00 Sputum Culture - Final Enterobacter Aerogenes Complete Laboratory Tests Test 09/18/16 04:00 White Blood Count 13.8 K/UL (4.8-10.8) H Red Blood Count 3.24 M/UL (4.70-6.10) L Hemoglobin 9.8 G/DL (14.2-18.0) L Hematocrit 30.8 % (42.0-52.0) L Mean Corpuscular Volume 95 FL (80-99) Mean Corpuscular Hemoglobin 30.3 PG (27.0-31.0) Mean Corpuscular Hemoglobin Concent 31.9 G/DL (32.0-36.0) L Red Cell Distribution Width 16.1 % (11.6-14.8) H Platelet Count 394 K/UL (150-450) Mean Platelet Volume 6.7 FL (6.5-10.1) Neutrophils (%) (Auto) 73.3 % (45.0-75.0) Lymphocytes (%) (Auto) 10.4 % (20.0-45.0) L Monocytes (%) (Auto) 12.8 % (1.0-10.0) H Eosinophils (%) (Auto) 1.9 % (0.0-3.0) Basophils (%) (Auto) 1.6 % (0.0-2.0) Sodium Level 145 mEQ/L (135-145) Potassium Level 3.7 mEQ/L (3.4-4.9) Chloride Level 96 mEQ/L (98-107) L Carbon Dioxide Level 28 mEQ/L (20-30) Anion Gap 21 (5-15) H Blood Urea Nitrogen 63 mg/dL (7-23) #H Creatinine 7.2 mg/dL (0.7-1.2) H Estimat Glomerular Filtration Rate 7.6 mL/min (>60) Glucose Level 277 mg/dL (74-106) H Calcium Level 10.3 mg/dL (8.6-10.2) H Current Medications Medications (Trade) Dose Ordered Sig/Mark Route PRN Reason Start Time Stop Time Status Last Admin Dose Admin Acetaminophen (Tylenol) 650 mg Q4H PRN ORAL Mild Pain (Pain Scale 1-3) 09/06/16 23:00 10/06/16 22:59 09/18/16 09:22 Albuterol/ Ipratropium (DuoNeb 0.5-3(2.5)mg/3ml) 3 ml Q4HRT HHN 09/16/16 11:00 09/21/16 10:59 09/18/16 10:35 Amlodipine Besylate (Norvasc) 10 mg DAILY GT 09/15/16 10:56 10/07/16 08:59 09/18/16 09:22 Cefepime HCl/ Dextrose (Maxipime/D5W) 55 ml @ 110 mls/hr Q24H IV 09/18/16 20:00 09/25/16 19:59 Chlorhexidine Gluconate (Lakshmi-Hex 2%) 1 applic DAILY TOPIC 09/10/16 03:30 10/10/16 03:29 09/18/16 09:23 Dextrose (Dextrose 50%) STAT PRN IV Hypoglycemia 09/06/16 23:00 10/06/16 22:59 Heparin Sodium (Porcine) (Heparin 5000 units/ml) 5,000 units EVERY 12 HOURS SUBQ 09/08/16 21:00 10/08/16 20:59 09/18/16 09:23 Insulin Aspart (NovoLOG) EVERY 6 HOURS SUBQ 09/07/16 18:00 10/07/16 17:59 09/18/16 12:20 Lorazepam (Ativan 2mg/ml 1ml) 1 mg Q1HR PRN IV For Seizure Activity 09/15/16 22:45 09/22/16 22:44 Metoclopramide HCl (Reglan) 5 mg Q6H IVP 09/15/16 22:30 10/15/16 22:29 09/18/16 12:20 Minoxidil (Loniten) 15 mg BID GT 09/15/16 10:57 10/13/16 17:59 09/18/16 09:22 Pantoprazole (Protonix) 40 mg EVERY 12 HOURS IVP 09/15/16 22:30 10/15/16 22:29 09/18/16 09:22 Phenytoin 300 mg 300 mg Q12HR@0400,1600 GT 09/18/16 04:00 10/18/16 03:59 09/18/16 04:35 Phenytoin/Sodium Chloride (Dilantin/Sodium Chloride) 120 ml @ 120 mls/hr POSTHD IVPB 09/17/16 21:00 10/17/16 20:59 Polyethylene Glycol (Miralax) 17 gm DAILYPRN PRN ORAL Constipation 09/06/16 23:00 10/06/16 22:59 Sodium Chloride (Sodium Chloride 1000ml bag) 1,000 ml @ 500 mls/hr Q2H PRN IVLG sbp<90 during hd 09/18/16 06:00 09/18/16 23:59 Valproic Acid (Depakene) 1,500 mg Q12HR GT 09/17/16 21:00 10/17/16 20:59 09/18/16 09:21 Valproic Acid 1000 mg 1,000 mg POSTHD GT 09/17/16 18:00 10/17/16 17:59 Vancomycin HCl 1 ea 1 ea DAILY PRN MISC Per rx protocol 09/17/16 17:30 10/17/16 17:29 ROZINA BREAUX Sep 18, 2016 12:59
[2016-09-18] MEDS ORDERED: Tubing IV Secondary IV ONE (15:26)
[2016-09-18] MEDS ORDERED: NS 275ml ONE (15:26)
--- NOTE | 2016-09-18 16:07 | Critical Care Progress Note ---
Assessment/Plan Assessment/Plan 1. Status post cardiac arrest. 2. Renal failure with hyperkalemia. 3. Respiratory failure. 4. Anoxic encephalopathy. 5. Status epilepticus 6. Coronary artery disease. 7. History of cardiomyopathy. 8. Diabetes. 9. Hypertension. low grade fever, WBC high has spontaneous TV 300 cc but RR high cannot wean with poor MS and excess secretions, high RR called ENT for trach, Dr Arriaga Critical Care - Subjective ROS Limited/Unobtainable: Yes Condition: critical EKG Rhythm: Sinus Rhythm I&O: Intake and Output 09/17/16 09/18/16 19:00 07:00 Intake Total 609 ml 980.000 ml Output Total 0 ml Balance 609 ml 980.000 ml Free Water 190 ml IV Total 129 ml 330.000 ml Tube Feeding 480 ml 460 ml Output Urine Total 0 ml Critical Care - Objective ET-Tube: 8.0 ET Position: 24 Last 24 Hour Vital Signs Date Time Temp Pulse Resp B/P Pulse Ox O2 Delivery O2 Flow Rate FiO2 09/18/16 15:18 Mechanical Ventilator 09/18/16 15:18 Mechanical Ventilator 09/18/16 15:14 102 30 30 09/18/16 15:00 101 25 124/39 100 Mechanical Ventilator 30 09/18/16 14:00 97 17 118/32 98 Mechanical Ventilator 30 09/18/16 13:00 100 28 132/46 99 Mechanical Ventilator 30 09/18/16 12:58 101 24 30 09/18/16 12:00 30 09/18/16 12:00 99.7 96 23 123/48 99 Mechanical Ventilator 30 09/18/16 12:00 96 09/18/16 11:09 93 18 30 09/18/16 11:00 91 18 94/28 99 Mechanical Ventilator 30 09/18/16 10:48 92 19 100 Mechanical Ventilator 09/18/16 10:37 30 09/18/16 10:35 92 17 99 Mechanical Ventilator 30 09/18/16 10:21 99.4 09/18/16 10:00 91 19 116/29 99 Mechanical Ventilator 30 09/18/16 09:22 111/30 09/18/16 09:22 93 111/30 09/18/16 09:00 93 19 102/30 98 Mechanical Ventilator 30 09/18/16 08:59 93 24 30 09/18/16 08:00 96 09/18/16 08:00 30 09/18/16 08:00 100.2 93 12 137/59 100 Mechanical Ventilator 30 09/18/16 07:53 91 17 100 Mechanical Ventilator 09/18/16 07:00 95 28 141/56 98 Mechanical Ventilator 30 09/18/16 06:53 91 24 99 Mechanical Ventilator 09/18/16 06:52 91 17 30 09/18/16 06:00 92 28 109/29 98 Mechanical Ventilator 30 09/18/16 05:00 103 25 114/38 99 Mechanical Ventilator 30 09/18/16 04:48 104 25 30 09/18/16 04:00 100.9 102 21 166/44 99 Mechanical Ventilator 30 09/18/16 04:00 102 09/18/16 04:00 30 09/18/16 03:41 102 15 100 Mechanical Ventilator 09/18/16 03:41 101 15 100 Mechanical Ventilator 30 09/18/16 03:22 100 21 30 09/18/16 03:00 102 20 165/45 99 Mechanical Ventilator 30 09/18/16 02:00 99 21 150/41 99 Mechanical Ventilator 30 09/18/16 01:00 101.0 09/18/16 01:00 102 23 123/48 98 Mechanical Ventilator 30 09/18/16 00:47 102 25 30 09/18/16 00:00 30 09/18/16 00:00 96 09/18/16 00:00 102 21 151/45 100 Mechanical Ventilator 30 09/17/16 23:13 101 14 100 Mechanical Ventilator 09/17/16 23:12 98 16 100 Mechanical Ventilator 30 09/17/16 23:10 98 18 30 09/17/16 23:00 99 23 150/46 100 Mechanical Ventilator 30 09/17/16 22:00 97 24 105/35 99 Mechanical Ventilator 30 09/17/16 21:00 100 27 136/37 99 Mechanical Ventilator 30 09/17/16 20:48 102 23 30 09/17/16 20:35 Mechanical Ventilator 30 09/17/16 20:00 100.1 98 18 140/46 Mechanical Ventilator 30 09/17/16 20:00 30 09/17/16 20:00 99 09/17/16 19:25 96 12 100 Mechanical Ventilator 09/17/16 19:24 97 11 100 Mechanical Ventilator 30 09/17/16 19:23 99 16 30 09/17/16 19:00 102 22 142/65 Mechanical Ventilator 30 09/17/16 18:21 147/43 09/17/16 18:00 100 24 147/43 99 Mechanical Ventilator 30 09/17/16 17:53 101 26 30 09/17/16 17:00 100 21 155/41 99 Mechanical Ventilator 30 Status: obtunded Lungs: clear Heart: normal rate Abdomen: non-tender, other Extremities: edema Objective: umbilical hernia Micro: Microbiology Date/Time Source Procedure Growth Status 09/16/16 10:00 Sputum Gram Stain - Final Complete 09/16/16 10:00 Sputum Culture - Final Enterobacter Aerogenes Complete Accucheck: CHOLE BULLARD Sep 18, 2016 16:07
--- NOTE | 2016-09-18 17:59 | Cardiology Progress Note ---
Assessment/Plan Assessment/Plan cardiopulm arrest anoxic encephalopathy esrd on hd noncompliant with dialysis htn chronic diastolic failure hx cad status epilepticus telel neg sinus on the vent dialysis as planned moves spont bp seem ok d/w rn bioethics ntio seem any change neuro reyna Subjective Subjective on verntnot responsive except to noxious stimuli grimaces Objective Last 24 Hour Vital Signs Date Time Temp Pulse Resp B/P Pulse Ox O2 Delivery O2 Flow Rate FiO2 09/18/16 17:08 103 31 30 09/18/16 17:00 102 18 152/41 100 Mechanical Ventilator 30 09/18/16 16:00 101 24 131/34 99 Mechanical Ventilator 30 09/18/16 16:00 30 09/18/16 16:00 117 09/18/16 15:18 Mechanical Ventilator 09/18/16 15:18 Mechanical Ventilator 09/18/16 15:14 102 30 30 09/18/16 15:00 101 25 124/39 100 Mechanical Ventilator 30 09/18/16 14:00 97 17 118/32 98 Mechanical Ventilator 30 09/18/16 13:30 Mechanical Ventilator 4.0 30 09/18/16 13:00 100 28 132/46 99 Mechanical Ventilator 30 09/18/16 12:58 101 24 30 09/18/16 12:00 30 09/18/16 12:00 99.7 96 23 123/48 99 Mechanical Ventilator 30 09/18/16 12:00 96 09/18/16 11:09 93 18 30 09/18/16 11:00 91 18 94/28 99 Mechanical Ventilator 30 09/18/16 10:48 92 19 100 Mechanical Ventilator 09/18/16 10:37 30 09/18/16 10:35 92 17 99 Mechanical Ventilator 30 09/18/16 10:21 99.4 09/18/16 10:00 91 19 116/29 99 Mechanical Ventilator 30 09/18/16 09:22 111/30 09/18/16 09:22 93 111/30 09/18/16 09:00 93 19 102/30 98 Mechanical Ventilator 30 09/18/16 08:59 93 24 30 09/18/16 08:00 96 09/18/16 08:00 30 09/18/16 08:00 100.2 93 12 137/59 100 Mechanical Ventilator 30 09/18/16 07:53 91 17 100 Mechanical Ventilator 09/18/16 07:00 95 28 141/56 98 Mechanical Ventilator 30 09/18/16 06:53 91 24 99 Mechanical Ventilator 09/18/16 06:52 91 17 30 09/18/16 06:00 92 28 109/29 98 Mechanical Ventilator 30 09/18/16 05:00 103 25 114/38 99 Mechanical Ventilator 30 09/18/16 04:48 104 25 30 09/18/16 04:00 100.9 102 21 166/44 99 Mechanical Ventilator 30 09/18/16 04:00 102 09/18/16 04:00 30 09/18/16 03:41 102 15 100 Mechanical Ventilator 09/18/16 03:41 101 15 100 Mechanical Ventilator 30 09/18/16 03:22 100 21 30 09/18/16 03:00 102 20 165/45 99 Mechanical Ventilator 30 09/18/16 02:00 99 21 150/41 99 Mechanical Ventilator 30 09/18/16 01:00 101.0 09/18/16 01:00 102 23 123/48 98 Mechanical Ventilator 30 09/18/16 00:47 102 25 30 09/18/16 00:00 30 09/18/16 00:00 96 09/18/16 00:00 102 21 151/45 100 Mechanical Ventilator 30 09/17/16 23:13 101 14 100 Mechanical Ventilator 09/17/16 23:12 98 16 100 Mechanical Ventilator 30 09/17/16 23:10 98 18 30 09/17/16 23:00 99 23 150/46 100 Mechanical Ventilator 30 09/17/16 22:00 97 24 105/35 99 Mechanical Ventilator 30 09/17/16 21:00 100 27 136/37 99 Mechanical Ventilator 30 09/17/16 20:48 102 23 30 09/17/16 20:35 Mechanical Ventilator 30 09/17/16 20:00 100.1 98 18 140/46 Mechanical Ventilator 30 09/17/16 20:00 30 09/17/16 20:00 99 09/17/16 19:25 96 12 100 Mechanical Ventilator 09/17/16 19:24 97 11 100 Mechanical Ventilator 30 09/17/16 19:23 99 16 30 09/17/16 19:00 102 22 142/65 Mechanical Ventilator 30 09/17/16 18:21 147/43 09/17/16 18:00 100 24 147/43 99 Mechanical Ventilator 30 General Appearance: no apparent distress, on vent, patient on isolation Neck: supple Cardiovascular: normal rate, regular rhythm Respiratory/Chest: lungs clear, normal breath sounds Abdomen: normal bowel sounds, non tender, soft Extremities: no swelling Intake and Output 09/17/16 09/18/16 19:00 07:00 Intake Total 609 ml 980.000 ml Output Total 0 ml Balance 609 ml 980.000 ml Free Water 190 ml IV Total 129 ml 330.000 ml Tube Feeding 480 ml 460 ml Output Urine Total 0 ml Laboratory Tests Test 09/18/16 04:00 09/18/16 15:00 White Blood Count 13.8 K/UL (4.8-10.8) H Red Blood Count 3.24 M/UL (4.70-6.10) L Hemoglobin 9.8 G/DL (14.2-18.0) L Hematocrit 30.8 % (42.0-52.0) L Mean Corpuscular Volume 95 FL (80-99) Mean Corpuscular Hemoglobin 30.3 PG (27.0-31.0) Mean Corpuscular Hemoglobin Concent 31.9 G/DL (32.0-36.0) L Red Cell Distribution Width 16.1 % (11.6-14.8) H Platelet Count 394 K/UL (150-450) Mean Platelet Volume 6.7 FL (6.5-10.1) Neutrophils (%) (Auto) 73.3 % (45.0-75.0) Lymphocytes (%) (Auto) 10.4 % (20.0-45.0) L Monocytes (%) (Auto) 12.8 % (1.0-10.0) H Eosinophils (%) (Auto) 1.9 % (0.0-3.0) Basophils (%) (Auto) 1.6 % (0.0-2.0) Sodium Level 145 mEQ/L (135-145) Potassium Level 3.7 mEQ/L (3.4-4.9) Chloride Level 96 mEQ/L (98-107) L Carbon Dioxide Level 28 mEQ/L (20-30) Anion Gap 21 (5-15) H Blood Urea Nitrogen 63 mg/dL (7-23) #H Creatinine 7.2 mg/dL (0.7-1.2) H Estimat Glomerular Filtration Rate 7.6 mL/min (>60) Glucose Level 277 mg/dL (74-106) H Calcium Level 10.3 mg/dL (8.6-10.2) H Phenytoin (Dilantin) Level 11.5 ug/mL (10-20) Microbiology Date/Time Source Procedure Growth Status 09/16/16 10:00 Sputum Gram Stain - Final Complete 09/16/16 10:00 Sputum Culture - Final Enterobacter Aerogenes Complete HUSSEIN CAGE Sep 18, 2016 17:58
--- NOTE | 2016-09-18 18:01 | Internal Med Progress Note ---
Subjective Date of Service: Sep 18, 2016 Physician Name Filiberto Clancy Attending Physician Harrison Delatorre Current Medications Medications (Trade) Dose Ordered Sig/Mark Route PRN Reason Start Time Stop Time Status Last Admin Dose Admin Acetaminophen (Tylenol) 650 mg Q4H PRN ORAL Mild Pain (Pain Scale 1-3) 09/06/16 23:00 10/06/16 22:59 09/18/16 09:22 Albuterol/ Ipratropium (DuoNeb 0.5-3(2.5)mg/3ml) 3 ml Q4HRT HHN 09/16/16 11:00 09/21/16 10:59 09/18/16 10:35 Amlodipine Besylate (Norvasc) 10 mg DAILY GT 09/15/16 10:56 10/07/16 08:59 09/18/16 09:22 Cefepime HCl 500 mg/Dextrose 55 ml @ 110 mls/hr Q24H IV 09/18/16 20:00 09/25/16 19:59 Chlorhexidine Gluconate (Lakshmi-Hex 2%) 1 applic DAILY TOPIC 09/10/16 03:30 10/10/16 03:29 09/18/16 09:23 Dextrose (Dextrose 50%) STAT PRN IV Hypoglycemia 09/06/16 23:00 10/06/16 22:59 Heparin Sodium (Porcine) (Heparin 5000 units/ml) 5,000 units EVERY 12 HOURS SUBQ 09/08/16 21:00 10/08/16 20:59 09/18/16 09:23 Insulin Aspart (NovoLOG) EVERY 6 HOURS SUBQ 09/07/16 18:00 10/07/16 17:59 09/18/16 12:20 Lorazepam (Ativan 2mg/ml 1ml) 1 mg Q1HR PRN IV For Seizure Activity 09/15/16 22:45 09/22/16 22:44 Metoclopramide HCl (Reglan) 5 mg Q6H IVP 09/15/16 22:30 10/15/16 22:29 09/18/16 12:20 Minoxidil (Loniten) 15 mg BID GT 09/15/16 10:57 10/13/16 17:59 09/18/16 09:22 Pantoprazole (Protonix) 40 mg EVERY 12 HOURS IVP 09/15/16 22:30 10/15/16 22:29 09/18/16 09:22 Phenytoin (Dilantin) 300 mg Q12HR GT 09/18/16 21:00 10/18/16 20:59 Phenytoin/Sodium Chloride (Dilantin/Sodium Chloride) 120 ml @ 120 mls/hr POSTHD IVPB 09/17/16 21:00 10/17/16 20:59 Polyethylene Glycol (Miralax) 17 gm DAILYPRN PRN ORAL Constipation 09/06/16 23:00 10/06/16 22:59 Sodium Chloride (Sodium Chloride 1000ml bag) 1,000 ml @ 500 mls/hr Q2H PRN IVLG sbp<90 during hd 09/18/16 06:00 09/18/16 23:59 Valproic Acid (Depakene) 1,500 mg Q12HR GT 09/17/16 21:00 10/17/16 20:59 09/18/16 09:21 Valproic Acid 1000 mg 1,000 mg POSTHD GT 09/17/16 18:00 10/17/16 17:59 Vancomycin HCl 1 ea 1 ea DAILY PRN MISC Per rx protocol 09/17/16 17:30 10/17/16 17:29 Allergies: Coded Allergies: NIACIN (Verified Allergy, Unknown, ITCHING, 01/30/12) ROS Limited/Unobtainable: Yes Subjective 71 YO M admitted with volume overload and respiratory failure. S/P cardiopulmonary arrest. ICU. Intubated and sedated. Cover for Int Brad-Dr Vail. Family agrees to PEG and tracheostomy Objective Last Vital Signs Date Time Temp Pulse Resp B/P Pulse Ox O2 Delivery O2 Flow Rate FiO2 09/18/16 17:08 103 31 30 09/18/16 17:00 152/41 100 Mechanical Ventilator 09/18/16 13:30 4.0 09/18/16 12:00 99.7 Laboratory Tests Test 09/18/16 04:00 09/18/16 15:00 White Blood Count 13.8 K/UL (4.8-10.8) H Red Blood Count 3.24 M/UL (4.70-6.10) L Hemoglobin 9.8 G/DL (14.2-18.0) L Hematocrit 30.8 % (42.0-52.0) L Mean Corpuscular Volume 95 FL (80-99) Mean Corpuscular Hemoglobin 30.3 PG (27.0-31.0) Mean Corpuscular Hemoglobin Concent 31.9 G/DL (32.0-36.0) L Red Cell Distribution Width 16.1 % (11.6-14.8) H Platelet Count 394 K/UL (150-450) Mean Platelet Volume 6.7 FL (6.5-10.1) Neutrophils (%) (Auto) 73.3 % (45.0-75.0) Lymphocytes (%) (Auto) 10.4 % (20.0-45.0) L Monocytes (%) (Auto) 12.8 % (1.0-10.0) H Eosinophils (%) (Auto) 1.9 % (0.0-3.0) Basophils (%) (Auto) 1.6 % (0.0-2.0) Sodium Level 145 mEQ/L (135-145) Potassium Level 3.7 mEQ/L (3.4-4.9) Chloride Level 96 mEQ/L (98-107) L Carbon Dioxide Level 28 mEQ/L (20-30) Anion Gap 21 (5-15) H Blood Urea Nitrogen 63 mg/dL (7-23) #H Creatinine 7.2 mg/dL (0.7-1.2) H Estimat Glomerular Filtration Rate 7.6 mL/min (>60) Glucose Level 277 mg/dL (74-106) H Calcium Level 10.3 mg/dL (8.6-10.2) H Phenytoin (Dilantin) Level 11.5 ug/mL (10-20) Microbiology Date/Time Source Procedure Growth Status 09/16/16 10:00 Sputum Gram Stain - Final Complete 09/16/16 10:00 Sputum Culture - Final Enterobacter Aerogenes Complete Intake and Output 09/17/16 09/18/16 19:00 07:00 Intake Total 609 ml 980.000 ml Output Total 0 ml Balance 609 ml 980.000 ml Free Water 190 ml IV Total 129 ml 330.000 ml Tube Feeding 480 ml 460 ml Output Urine Total 0 ml Objective General Appearance: WD/WN, lethargic EENT: PERRL/EOMI, normal ENT inspection, TMs normal Neck: non-tender, normal alignment, supple Cardiovascular: normal peripheral pulses, normal rate, regular rhythm, no gallop/murmur, no JVD Respiratory/Chest: Mech vent; chest wall non-tender, crackles/rales, rhonchi - bilaterally, expiratory wheezing Abdomen: normal bowel sounds, non tender, soft, no organomegaly Skin: normal pigmentation, warm/dry Assessment/Plan Problem List: (1) HTN (hypertension) Assessment & Plan: Cont amlodipine. (2) Hyperkalemia (3) Respiratory failure with hypoxia Assessment & Plan: Intubated and sedated. (4) ESRD (end stage renal disease) Assessment & Plan: See nephrology note. Last Hemodialysis 09/16/16 per nephrology (5) CHF (congestive heart failure) (6) Diabetes mellitus Assessment & Plan: Cont novolog sliding scale. 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 (9) Anoxic encephalopathy syndrome Assessment & Plan: See neruo note. (10) Enterobacter sepsis (11) Pneumonia Assessment & Plan: Enterobacter. cont cefepime per ID Status: not improved Assessment/Plan Await tracheostomy and PEG FILIBERTO CLANCY Sep 18, 2016 18:01
[2016-09-18] MEDS: Cefepime HCl 500 MG in D5W 55 ML IV SCH (20:02)
[2016-09-18] MEDS: Phenytoin Susp 100mg/4ml GT SCH (21:51)
[2016-09-18] MEDS: Phenytoin 500 MG in NS 110 ML IVPB SCH (21:52)
--- NOTE | 2016-09-18 23:56 | Wound Care Consultation ---
Wound Assessment Wound Assessment : Wound Present on Admission: No New Wound: Yes Status Change of Wound: No Wound Location Body Site: perineal area Wound Type: chemical burn - with erosion Chiqui Test: Does not Chiqui Percent of Wound Mehan/Red: 100 Wound Drainage Description: Serosanguineous Wound Drainage Amount: Scant Wound Drainage Odor: None/Absent Tissue Surrounding Wound: Erythemic Wound General Appearance: Reddened Wound Comment #1 Chemical burn with erosion on Perineal area Recommendation -Cleanse with saline pat dry apply Triad cream and leave area open to air BID and PRN soiled -Keep clean and dry -Turn and reposition -Optimize nutrition -Assess and f/u accordingly for any changes DEREK MENENDEZ RN Sep 18, 2016 23:56
[2016-09-19] VITALS (24 sets, daily range): BP systolic 98–159; BP diastolic 28–64
[2016-09-19] MEDS: Valproic Acid 250mg/5ml Liquid GT SCH ×3 (01:51→21:02)
[2016-09-19] MEDS: DuoNeb 0.5-3(2.5)mg/3ml neb HHN SCH ×6 (03:15→23:08)
[2016-09-19] MEDS: Metoclopramide 10mg/2ml Inj IVP SCH ×4 (05:12→22:25)
[2016-09-19 06:17] LABS: BASOPHILS % (AUTO) 3.2 % (0.0-2.0); EOSINOPHILS % (AUTO) 2.4 % (0.0-3.0); LYMPHOCYTES % (AUTO) 10.6 % (20.0-45.0); MEAN CORPUSCULAR HEMOGLOBIN 30.1 PG (27.0-31.0); MEAN CORPUSCULAR HGB CONC 31.3 G/DL (32.0-36.0); MEAN CORPUSCULAR VOLUME 96 FL (80-99); MEAN PLATELET VOLUME 6.3 FL (6.5-10.1); MONOCYTES % (AUTO) 10.7 % (1.0-10.0); NEUTROPHILS % (AUTO) 73.1 % (45.0-75.0); PLATELET COUNT 298 K/UL (150-450); RED BLOOD COUNT 2.92 M/UL (4.70-6.10); RED CELL DISTRIBUTION WIDTH 15.9 % (11.6-14.8); WHITE BLOOD COUNT 14.1 K/UL (4.8-10.8)
[2016-09-19] MEDS: NovoLOG Insulin Flexpen SUBQ SCH ×3 (06:24→18:24)
[2016-09-19 06:37] LABS: CALCIUM 9.5 mg/dL (8.6-10.2); CREATININE 5.4 mg/dL (0.7-1.2); GLOMERULAR FILTRATION RATE 10.6 mL/min (>60); POTASSIUM 3.7 mEQ/L (3.4-4.9)
[2016-09-19] MEDS: Minoxidil 10mg tab GT SCH ×2 (08:07→18:22)
[2016-09-19] MEDS: Dyna-Hex 2% Top Sol 8oz TOPIC SCH (08:07)
[2016-09-19] MEDS: Phenytoin Susp 100mg/4ml GT SCH ×2 (08:08→21:02)
[2016-09-19] MEDS: Pantoprazole Inj IVP SCH ×2 (08:09→21:03)
[2016-09-19] MEDS: Heparin 5000 units/ml inj SUBQ SCH ×2 (08:09→21:03)
[2016-09-19] MEDS ORDERED: Tubing IV Secondary IV ONE (09:52)
--- NOTE | 2016-09-19 11:18 | Infectious Diseases Prog Note ---
Assessment/Plan Assessment/Plan antibiotics : vancomycin iv, cefepime A 1. enterobacter pneumonia 2. respiratory failure 3. renal failure 4. leucocytosis 5. s/p cardiac arrest P 1. continue iv vancomycin, cefepime 2. will follow up cultures Subjective ROS Limited/Unobtainable: Yes Allergies: Coded Allergies: NIACIN (Verified Allergy, Unknown, ITCHING, 01/30/12) Objective Vital Signs Last 24 Hour Vital Signs Date Time Temp Pulse Resp B/P Pulse Ox O2 Delivery O2 Flow Rate FiO2 09/19/16 11:07 100 22 30 09/19/16 11:06 30 09/19/16 11:05 101 22 99 Mechanical Ventilator 30 09/19/16 11:00 98.9 99 22 139/54 100 Mechanical Ventilator 30 09/19/16 10:00 97 24 119/42 100 Mechanical Ventilator 30 09/19/16 09:12 90 14 30 09/19/16 09:00 98 29 98/28 97 Mechanical Ventilator 30 09/19/16 08:07 152/48 09/19/16 08:07 92 152/48 09/19/16 08:00 30 09/19/16 08:00 92 09/19/16 08:00 99.2 92 22 150/48 100 Mechanical Ventilator 30 09/19/16 07:55 93 16 100 Mechanical Ventilator 30 09/19/16 07:46 30 09/19/16 07:45 93 15 99 Mechanical Ventilator 30 09/19/16 07:16 91 19 30 09/19/16 07:00 97 29 152/48 97 Mechanical Ventilator 30 09/19/16 06:00 90 19 159/43 95 Mechanical Ventilator 30 09/19/16 05:00 87 20 143/40 96 Mechanical Ventilator 30 09/19/16 04:39 90 20 30 09/19/16 04:00 90 09/19/16 04:00 30 09/19/16 04:00 99.1 94 24 159/43 95 Mechanical Ventilator 30 09/19/16 03:25 80 18 100 Mechanical Ventilator 30 09/19/16 03:14 90 18 100 Mechanical Ventilator 30 09/19/16 03:14 30 09/19/16 03:13 90 18 30 09/19/16 03:00 87 21 143/40 100 Mechanical Ventilator 30 09/19/16 02:00 84 19 142/39 100 Mechanical Ventilator 30 09/19/16 01:21 90 28 30 09/19/16 01:00 90 15 142/39 100 Mechanical Ventilator 30 09/19/16 00:00 98.6 89 23 123/40 99 Mechanical Ventilator 30 09/19/16 00:00 30 09/19/16 00:00 88 09/18/16 23:24 83 12 100 Mechanical Ventilator 30 09/18/16 23:08 89 28 100 Mechanical Ventilator 30 09/18/16 23:08 30 09/18/16 23:07 89 28 30 09/18/16 23:00 86 15 123/40 99 Mechanical Ventilator 30 09/18/16 22:00 91 16 133/47 100 Mechanical Ventilator 30 09/18/16 21:23 102 24 30 09/18/16 21:02 99.8 09/18/16 21:00 99.8 100 24 133/47 100 Mechanical Ventilator 30 09/18/16 20:00 100.4 102 25 133/47 99 Mechanical Ventilator 30 09/18/16 20:00 30 09/18/16 20:00 102 09/18/16 19:39 104 17 100 Mechanical Ventilator 30 09/18/16 19:18 30 09/18/16 19:18 103 25 100 Mechanical Ventilator 30 09/18/16 19:15 104 25 30 09/18/16 19:06 142/43 09/18/16 19:00 105 24 138/41 100 Mechanical Ventilator 30 09/18/16 18:05 Mechanical Ventilator 4.0 30 09/18/16 18:00 97.1 103 25 138/41 100 Mechanical Ventilator 30 09/18/16 17:08 103 31 30 09/18/16 17:00 102 18 152/41 100 Mechanical Ventilator 30 09/18/16 16:00 101 24 131/34 99 Mechanical Ventilator 30 09/18/16 16:00 30 09/18/16 16:00 117 09/18/16 15:18 Mechanical Ventilator 09/18/16 15:18 Mechanical Ventilator 09/18/16 15:14 102 30 30 09/18/16 15:00 101 25 124/39 100 Mechanical Ventilator 30 09/18/16 14:00 97 17 118/32 98 Mechanical Ventilator 30 09/18/16 13:30 Mechanical Ventilator 4.0 30 09/18/16 13:00 100 28 132/46 99 Mechanical Ventilator 30 09/18/16 12:58 101 24 30 6/15/17 12:00 30 09/18/16 12:00 99.7 96 23 123/48 99 Mechanical Ventilator 30 09/18/16 12:00 96 Height (Feet): 5 Height (Inches): 6.00 Weight (Pounds): 167 HEENT: other - intubated Respiratory/Chest: lungs clear Cardiovascular: normal rate, regular rhythm, no gallop/murmur Abdomen: soft, non tender Extremities: no edema Laboratory Tests Test 09/18/16 15:00 09/19/16 06:00 Phenytoin (Dilantin) Level 11.5 ug/mL (10-20) White Blood Count 14.1 K/UL (4.8-10.8) H Red Blood Count 2.92 M/UL (4.70-6.10) L Hemoglobin 8.8 G/DL (14.2-18.0) L Hematocrit 28.2 % (42.0-52.0) L Mean Corpuscular Volume 96 FL (80-99) Mean Corpuscular Hemoglobin 30.1 PG (27.0-31.0) Mean Corpuscular Hemoglobin Concent 31.3 G/DL (32.0-36.0) L Red Cell Distribution Width 15.9 % (11.6-14.8) H Platelet Count 298 K/UL (150-450) Mean Platelet Volume 6.3 FL (6.5-10.1) L Neutrophils (%) (Auto) 73.1 % (45.0-75.0) Lymphocytes (%) (Auto) 10.6 % (20.0-45.0) L Monocytes (%) (Auto) 10.7 % (1.0-10.0) H Eosinophils (%) (Auto) 2.4 % (0.0-3.0) Basophils (%) (Auto) 3.2 % (0.0-2.0) H Sodium Level 141 mEQ/L (135-145) Potassium Level 3.7 mEQ/L (3.4-4.9) Chloride Level 92 mEQ/L (98-107) L Carbon Dioxide Level 29 mEQ/L (20-30) Anion Gap 20 (5-15) H Blood Urea Nitrogen 47 mg/dL (7-23) H Creatinine 5.4 mg/dL (0.7-1.2) H Estimat Glomerular Filtration Rate 10.6 mL/min (>60) Glucose Level 287 mg/dL (74-106) H Calcium Level 9.5 mg/dL (8.6-10.2) Random Vancomycin Level 17.0 ug/mL LEWIS ADAMS Sep 19, 2016 11:18
--- NOTE | 2016-09-19 12:27 | Nephrology Progress Note ---
Assessment/Plan Problem List: (1) ESRD (end stage renal disease) (2) Anoxic encephalopathy syndrome (3) Respiratory failure with hypoxia (4) CHF (congestive heart failure) (5) HTN (hypertension) Assessment R arm edema Plan HD in AM R arm venous US Vent support Discussed with RN follow labs TF Family agreed with PEG and Trach Subjective Subjective remains intubated no improvement in MS Objective Objective Last 24 Hour Vital Signs Date Time Temp Pulse Resp B/P Pulse Ox O2 Delivery O2 Flow Rate FiO2 09/19/16 12:00 30 09/19/16 12:00 102 09/19/16 12:00 102 22 139/64 100 Mechanical Ventilator 30 09/19/16 11:07 100 22 30 09/19/16 11:06 30 09/19/16 11:05 101 22 99 Mechanical Ventilator 30 09/19/16 11:00 98.9 99 22 139/54 100 Mechanical Ventilator 30 09/19/16 10:00 97 24 119/42 100 Mechanical Ventilator 30 09/19/16 09:12 90 14 30 09/19/16 09:00 98 29 98/28 97 Mechanical Ventilator 30 09/19/16 08:07 152/48 09/19/16 08:07 92 152/48 09/19/16 08:00 30 09/19/16 08:00 92 09/19/16 08:00 99.2 92 22 150/48 100 Mechanical Ventilator 30 09/19/16 07:55 93 16 100 Mechanical Ventilator 30 09/19/16 07:46 30 09/19/16 07:45 93 15 99 Mechanical Ventilator 30 09/19/16 07:16 91 19 30 09/19/16 07:00 97 29 152/48 97 Mechanical Ventilator 30 09/19/16 06:00 90 19 159/43 95 Mechanical Ventilator 30 09/19/16 05:00 87 20 143/40 96 Mechanical Ventilator 30 09/19/16 04:39 90 20 30 09/19/16 04:00 90 09/19/16 04:00 30 09/19/16 04:00 99.1 94 24 159/43 95 Mechanical Ventilator 30 09/19/16 03:25 80 18 100 Mechanical Ventilator 30 09/19/16 03:14 90 18 100 Mechanical Ventilator 30 09/19/16 03:14 30 09/19/16 03:13 90 18 30 09/19/16 03:00 87 21 143/40 100 Mechanical Ventilator 30 09/19/16 02:00 84 19 142/39 100 Mechanical Ventilator 30 09/19/16 01:21 90 28 30 09/19/16 01:00 90 15 142/39 100 Mechanical Ventilator 30 09/19/16 00:00 98.6 89 23 123/40 99 Mechanical Ventilator 30 09/19/16 00:00 30 09/19/16 00:00 88 09/18/16 23:24 83 12 100 Mechanical Ventilator 30 09/18/16 23:08 89 28 100 Mechanical Ventilator 30 09/18/16 23:08 30 09/18/16 23:07 89 28 30 09/18/16 23:00 86 15 123/40 99 Mechanical Ventilator 30 09/18/16 22:00 91 16 133/47 100 Mechanical Ventilator 30 09/18/16 21:23 102 24 30 09/18/16 21:02 99.8 09/18/16 21:00 99.8 100 24 133/47 100 Mechanical Ventilator 30 09/18/16 20:00 100.4 102 25 133/47 99 Mechanical Ventilator 30 09/18/16 20:00 30 09/18/16 20:00 102 09/18/16 19:39 104 17 100 Mechanical Ventilator 30 09/18/16 19:18 30 09/18/16 19:18 103 25 100 Mechanical Ventilator 30 09/18/16 19:15 104 25 30 09/18/16 19:06 142/43 09/18/16 19:00 105 24 138/41 100 Mechanical Ventilator 30 09/18/16 18:05 Mechanical Ventilator 4.0 30 09/18/16 18:00 97.1 103 25 138/41 100 Mechanical Ventilator 30 09/18/16 17:08 103 31 30 09/18/16 17:00 102 18 152/41 100 Mechanical Ventilator 30 09/18/16 16:00 101 24 131/34 99 Mechanical Ventilator 30 09/18/16 16:00 30 09/18/16 16:00 117 09/18/16 15:18 Mechanical Ventilator 09/18/16 15:18 Mechanical Ventilator 09/18/16 15:14 102 30 30 09/18/16 15:00 101 25 124/39 100 Mechanical Ventilator 30 09/18/16 14:00 97 17 118/32 98 Mechanical Ventilator 30 6/15/17 13:30 Mechanical Ventilator 4.0 30 09/18/16 13:00 100 28 132/46 99 Mechanical Ventilator 30 09/18/16 12:58 101 24 30 Intake and Output 09/18/16 09/19/16 19:00 07:00 Intake Total 430 ml 695 ml Output Total 2001 ml Balance -1571 ml 695 ml IV Total 175 ml Tube Feeding 370 ml 420 ml Other 60 ml 100 ml Stool Total 1 ml Hemodialysis UF 2000 ml # Bowel Movements 4 Laboratory Tests 09/18/16 15:00: Phenytoin (Dilantin) Level 11.5 09/19/16 06:00: White Blood Count 14.1H, Red Blood Count 2.92L, Hemoglobin 8.8L, Hematocrit 28.2L, Mean Corpuscular Volume 96, Mean Corpuscular Hemoglobin 30.1, Mean Corpuscular Hemoglobin Concent 31.3L, Red Cell Distribution Width 15.9H, Platelet Count 298, Mean Platelet Volume 6.3L, Neutrophils (%) (Auto) 73.1, Lymphocytes (%) (Auto) 10.6L, Monocytes (%) (Auto) 10.7H, Eosinophils (%) (Auto ) 2.4, Basophils (%) (Auto) 3.2H, Sodium Level 141, Potassium Level 3.7, Chloride Level 92L, Carbon Dioxide Level 29, Anion Gap 20H, Blood Urea Nitrogen 47H, Creatinine 5.4H, Estimat Glomerular Filtration Rate 10.6, Glucose Level 287H, Calcium Level 9.5, Random Vancomycin Level 17.0 Height (Feet): 5 Height (Inches): 6.00 Weight (Pounds): 167 Cardiovascular: normal rate Respiratory/Chest: lungs clear Extremities: severe edema - R arm CANDICE BREAUX Sep 19, 2016 12:27
[2016-09-19] MEDS ORDERED: Vancomycin 1gm/D5W 275ml IVPB ONE ×2 (12:30)
[2016-09-19] MEDS ORDERED: Heparin Sod 1000 units/ml 10ml IV PRN (12:30)
--- NOTE | 2016-09-19 12:53 | Pulmonology Progress Note ---
Assessment/Plan Assessment/Plan 1. Status post cardiac arrest. 2. Renal failure with hyperkalemia. 3. Respiratory failure. 4. Anoxic encephalopathy. 5. Status epilepticus 6. Coronary artery disease. 7. History of cardiomyopathy. 8. Diabetes. 9. Hypertension. low grade fever, WBC high has spontaneous TV 300 cc but RR high cannot wean with poor MS and excess secretions, high RR await Dr Corina hyatt Subjective Interval Events: Reamins on vent; trach planned Constitutional: Reports: no symptoms HEENT: Repors: no symptoms Respiratory: Reports: no symptoms Cardiovascular: Reports: no symptoms Gastrointestinal/Abdominal: Reports: no symptoms Genitourinary: Reports: no symptoms Neurologic: Reports: no symptoms Allergies: Coded Allergies: NIACIN (Verified Allergy, Unknown, ITCHING, 01/30/12) Objective Last 24 Hour Vital Signs Date Time Temp Pulse Resp B/P Pulse Ox O2 Delivery O2 Flow Rate FiO2 09/19/16 12:00 30 09/19/16 12:00 102 09/19/16 12:00 102 22 139/64 100 Mechanical Ventilator 30 09/19/16 11:07 100 22 30 09/19/16 11:06 30 09/19/16 11:05 101 22 99 Mechanical Ventilator 30 09/19/16 11:00 98.9 99 22 139/54 100 Mechanical Ventilator 30 09/19/16 10:00 97 24 119/42 100 Mechanical Ventilator 30 09/19/16 09:12 90 14 30 09/19/16 09:00 98 29 98/28 97 Mechanical Ventilator 30 09/19/16 08:07 152/48 09/19/16 08:07 92 152/48 09/19/16 08:00 30 09/19/16 08:00 92 09/19/16 08:00 99.2 92 22 150/48 100 Mechanical Ventilator 30 09/19/16 07:55 93 16 100 Mechanical Ventilator 30 09/19/16 07:46 30 09/19/16 07:45 93 15 99 Mechanical Ventilator 30 09/19/16 07:16 91 19 30 09/19/16 07:00 97 29 152/48 97 Mechanical Ventilator 30 09/19/16 06:00 90 19 159/43 95 Mechanical Ventilator 30 09/19/16 05:00 87 20 143/40 96 Mechanical Ventilator 30 09/19/16 04:39 90 20 30 09/19/16 04:00 90 09/19/16 04:00 30 09/19/16 04:00 99.1 94 24 159/43 95 Mechanical Ventilator 30 09/19/16 03:25 80 18 100 Mechanical Ventilator 30 09/19/16 03:14 90 18 100 Mechanical Ventilator 30 09/19/16 03:14 30 09/19/16 03:13 90 18 30 09/19/16 03:00 87 21 143/40 100 Mechanical Ventilator 30 09/19/16 02:00 84 19 142/39 100 Mechanical Ventilator 30 09/19/16 01:21 90 28 30 09/19/16 01:00 90 15 142/39 100 Mechanical Ventilator 30 09/19/16 00:00 98.6 89 23 123/40 99 Mechanical Ventilator 30 09/19/16 00:00 30 09/19/16 00:00 88 09/18/16 23:24 83 12 100 Mechanical Ventilator 30 09/18/16 23:08 89 28 100 Mechanical Ventilator 30 09/18/16 23:08 30 09/18/16 23:07 89 28 30 09/18/16 23:00 86 15 123/40 99 Mechanical Ventilator 30 09/18/16 22:00 91 16 133/47 100 Mechanical Ventilator 30 09/18/16 21:23 102 24 30 09/18/16 21:02 99.8 09/18/16 21:00 99.8 100 24 133/47 100 Mechanical Ventilator 30 09/18/16 20:00 100.4 102 25 133/47 99 Mechanical Ventilator 30 09/18/16 20:00 30 09/18/16 20:00 102 09/18/16 19:39 104 17 100 Mechanical Ventilator 30 09/18/16 19:18 30 09/18/16 19:18 103 25 100 Mechanical Ventilator 30 09/18/16 19:15 104 25 30 09/18/16 19:06 142/43 09/18/16 19:00 105 24 138/41 100 Mechanical Ventilator 30 09/18/16 18:05 Mechanical Ventilator 4.0 30 09/18/16 18:00 97.1 103 25 138/41 100 Mechanical Ventilator 30 09/18/16 17:08 103 31 30 09/18/16 17:00 102 18 152/41 100 Mechanical Ventilator 30 09/18/16 16:00 101 24 131/34 99 Mechanical Ventilator 30 09/18/16 16:00 30 09/18/16 16:00 117 09/18/16 15:18 Mechanical Ventilator 09/18/16 15:18 Mechanical Ventilator 09/18/16 15:14 102 30 30 09/18/16 15:00 101 25 124/39 100 Mechanical Ventilator 30 09/18/16 14:00 97 17 118/32 98 Mechanical Ventilator 30 09/18/16 13:30 Mechanical Ventilator 4.0 30 09/18/16 13:00 100 28 132/46 99 Mechanical Ventilator 30 09/18/16 12:58 101 24 30 Intake and Output 09/18/16 09/19/16 18:59 06:59 Intake Total 380 ml 685 ml Output Total 2001 ml Balance -1621 ml 685 ml IV Total 175 ml Tube Feeding 320 ml 410 ml Other 60 ml 100 ml Stool Total 1 ml Hemodialysis UF 2000 ml # Bowel Movements 4 General Appearance: no acute distress HEENT: normocephalic Respiratory/Chest: chest wall non-tender, decreased breath sounds Cardiovascular: normal peripheral pulses, normal rate Abdomen: normal bowel sounds, soft, non tender Laboratory Tests 09/18/16 15:00: Phenytoin (Dilantin) Level 11.5 09/19/16 06:00: White Blood Count 14.1H, Red Blood Count 2.92L, Hemoglobin 8.8L, Hematocrit 28.2L, Mean Corpuscular Volume 96, Mean Corpuscular Hemoglobin 30.1, Mean Corpuscular Hemoglobin Concent 31.3L, Red Cell Distribution Width 15.9H, Platelet Count 298, Mean Platelet Volume 6.3L, Neutrophils (%) (Auto) 73.1, Lymphocytes (%) (Auto) 10.6L, Monocytes (%) (Auto) 10.7H, Eosinophils (%) (Auto ) 2.4, Basophils (%) (Auto) 3.2H, Sodium Level 141, Potassium Level 3.7, Chloride Level 92L, Carbon Dioxide Level 29, Anion Gap 20H, Blood Urea Nitrogen 47H, Creatinine 5.4H, Estimat Glomerular Filtration Rate 10.6, Glucose Level 287H, Calcium Level 9.5, Random Vancomycin Level 17.0 Current Medications Medications (Trade) Dose Ordered Sig/Mark Route PRN Reason Start Time Stop Time Status Last Admin Dose Admin Acetaminophen (Tylenol) 650 mg Q4H PRN ORAL Mild Pain (Pain Scale 1-3) 09/06/16 23:00 10/06/16 22:59 09/19/16 12:20 Albuterol/ Ipratropium (DuoNeb 0.5-3(2.5)mg/3ml) 3 ml Q4HRT HHN 09/16/16 11:00 09/21/16 10:59 09/19/16 11:09 Amlodipine Besylate (Norvasc) 10 mg DAILY GT 09/15/16 10:56 10/07/16 08:59 09/19/16 08:07 Cefepime HCl 500 mg/Dextrose 55 ml @ 110 mls/hr Q24H IV 09/18/16 20:00 09/25/16 19:59 09/18/16 20:02 Chlorhexidine Gluconate (Lakshmi-Hex 2%) 1 applic DAILY TOPIC 09/10/16 03:30 10/10/16 03:29 09/19/16 08:07 Dextrose (Dextrose 50%) STAT PRN IV Hypoglycemia 09/06/16 23:00 10/06/16 22:59 Heparin Sodium (Porcine) (Heparin 5000 units/ml) 5,000 units EVERY 12 HOURS SUBQ 09/08/16 21:00 10/08/16 20:59 09/19/16 08:09 Heparin Sodium (Porcine) (Heparin Sod 1000 units/ml 10ml) 2,000 unit ONCE PRN IV FOR HD USE ONLY 09/19/16 12:30 09/20/16 23:59 Insulin Aspart (NovoLOG) EVERY 6 HOURS SUBQ 09/07/16 18:00 10/07/16 17:59 09/19/16 12:16 Lorazepam (Ativan 2mg/ml 1ml) 1 mg Q1HR PRN IV For Seizure Activity 09/15/16 22:45 09/22/16 22:44 Metoclopramide HCl (Reglan) 5 mg Q6H IVP 09/15/16 22:30 10/15/16 22:29 09/19/16 10:33 Minoxidil (Loniten) 15 mg BID GT 09/15/16 10:57 10/13/16 17:59 09/19/16 08:07 Pantoprazole (Protonix) 40 mg EVERY 12 HOURS IVP 09/15/16 22:30 10/15/16 22:29 09/19/16 08:09 Phenytoin 300 mg 300 mg Q12HR GT 09/18/16 21:00 10/18/16 20:59 09/19/16 08:08 Phenytoin/Sodium Chloride (Dilantin/Sodium Chloride) 120 ml @ 120 mls/hr POSTHD IVPB 09/17/16 21:00 10/17/16 20:59 09/18/16 21:52 Polyethylene Glycol (Miralax) 17 gm DAILYPRN PRN ORAL Constipation 09/06/16 23:00 10/06/16 22:59 Sodium Chloride (Sodium Chloride 1000ml bag) 1,000 ml @ 500 mls/hr Q2H PRN IVLG sbp<90 during hd 09/19/16 12:28 09/20/16 23:59 Valproic Acid (Depakene) 1,000 mg POSTHD GT 09/17/16 18:00 10/17/16 17:59 09/19/16 01:51 Valproic Acid (Depakene) 1,500 mg Q12HR GT 09/17/16 21:00 10/17/16 20:59 09/19/16 08:08 Vancomycin HCl 1 ea 1 ea DAILY PRN MISC Per rx protocol 09/17/16 17:30 10/17/16 17:29 Vancomycin HCl 1 gm/Dextrose 275 ml @ 183.708 mls/hr ONCE ONCE IVPB 09/19/16 12:30 09/19/16 13:59 09/19/16 12:20 Delvin Bryant MD Sep 19, 2016 12:53
--- NOTE | 2016-09-19 16:50 | Internal Med Progress Note ---
Subjective Date of Service: Sep 19, 2016 Physician Name Filiberto Clancy Attending Physician Harrison Delatorre Current Medications Medications (Trade) Dose Ordered Sig/Mark Route PRN Reason Start Time Stop Time Status Last Admin Dose Admin Acetaminophen (Tylenol) 650 mg Q4H PRN ORAL Mild Pain (Pain Scale 1-3) 09/06/16 23:00 10/06/16 22:59 09/19/16 12:20 Albuterol/ Ipratropium (DuoNeb 0.5-3(2.5)mg/3ml) 3 ml Q4HRT HHN 09/16/16 11:00 09/21/16 10:59 09/19/16 15:26 Amlodipine Besylate (Norvasc) 10 mg DAILY GT 09/15/16 10:56 10/07/16 08:59 09/19/16 08:07 Cefepime HCl 500 mg/Dextrose 55 ml @ 110 mls/hr Q24H IV 09/18/16 20:00 09/25/16 19:59 09/18/16 20:02 Chlorhexidine Gluconate (Lakshmi-Hex 2%) 1 applic DAILY TOPIC 09/10/16 03:30 10/10/16 03:29 09/19/16 08:07 Dextrose (Dextrose 50%) STAT PRN IV Hypoglycemia 09/06/16 23:00 10/06/16 22:59 Heparin Sodium (Porcine) (Heparin 5000 units/ml) 5,000 units EVERY 12 HOURS SUBQ 09/08/16 21:00 10/08/16 20:59 09/19/16 08:09 Heparin Sodium (Porcine) (Heparin Sod 1000 units/ml 10ml) 2,000 unit ONCE PRN IV FOR HD USE ONLY 09/19/16 12:30 09/20/16 23:59 Insulin Aspart (NovoLOG) EVERY 6 HOURS SUBQ 09/07/16 18:00 10/07/16 17:59 09/19/16 12:16 Lorazepam (Ativan 2mg/ml 1ml) 1 mg Q1HR PRN IV For Seizure Activity 09/15/16 22:45 09/22/16 22:44 Metoclopramide HCl (Reglan) 5 mg Q6H IVP 09/15/16 22:30 10/15/16 22:29 09/19/16 10:33 Minoxidil (Loniten) 15 mg BID GT 09/15/16 10:57 10/13/16 17:59 09/19/16 08:07 Pantoprazole (Protonix) 40 mg EVERY 12 HOURS IVP 09/15/16 22:30 10/15/16 22:29 09/19/16 08:09 Phenytoin 300 mg 300 mg Q12HR GT 09/18/16 21:00 10/18/16 20:59 09/19/16 08:08 Phenytoin/Sodium Chloride (Dilantin/Sodium Chloride) 120 ml @ 120 mls/hr POSTHD IVPB 09/17/16 21:00 10/17/16 20:59 09/18/16 21:52 Polyethylene Glycol (Miralax) 17 gm DAILYPRN PRN ORAL Constipation 09/06/16 23:00 10/06/16 22:59 Sodium Chloride (Sodium Chloride 1000ml bag) 1,000 ml @ 500 mls/hr Q2H PRN IVLG sbp<90 during hd 09/19/16 12:28 09/20/16 23:59 Valproic Acid (Depakene) 1,000 mg POSTHD GT 09/17/16 18:00 10/17/16 17:59 09/19/16 01:51 Valproic Acid (Depakene) 1,500 mg Q12HR GT 09/17/16 21:00 10/17/16 20:59 09/19/16 08:08 Vancomycin HCl 1 ea 1 ea DAILY PRN MISC Per rx protocol 09/17/16 17:30 10/17/16 17:29 Allergies: Coded Allergies: NIACIN (Verified Allergy, Unknown, ITCHING, 01/30/12) ROS Limited/Unobtainable: Yes Subjective 71 YO M admitted with volume overload and respiratory failure. S/P cardiopulmonary arrest. ICU. Intubated and sedated. Cover for Int Brad-Dr Vail. Family agrees to PEG and tracheostomy Objective Last Vital Signs Date Time Temp Pulse Resp B/P Pulse Ox O2 Delivery O2 Flow Rate FiO2 09/19/16 16:41 92 15 30 09/19/16 15:36 100 Mechanical Ventilator 09/19/16 15:00 99.8 133/55 09/18/16 18:05 4.0 Laboratory Tests Test 09/19/16 06:00 White Blood Count 14.1 K/UL (4.8-10.8) H Red Blood Count 2.92 M/UL (4.70-6.10) L Hemoglobin 8.8 G/DL (14.2-18.0) L Hematocrit 28.2 % (42.0-52.0) L Mean Corpuscular Volume 96 FL (80-99) Mean Corpuscular Hemoglobin 30.1 PG (27.0-31.0) Mean Corpuscular Hemoglobin Concent 31.3 G/DL (32.0-36.0) L Red Cell Distribution Width 15.9 % (11.6-14.8) H Platelet Count 298 K/UL (150-450) Mean Platelet Volume 6.3 FL (6.5-10.1) L Neutrophils (%) (Auto) 73.1 % (45.0-75.0) Lymphocytes (%) (Auto) 10.6 % (20.0-45.0) L Monocytes (%) (Auto) 10.7 % (1.0-10.0) H Eosinophils (%) (Auto) 2.4 % (0.0-3.0) Basophils (%) (Auto) 3.2 % (0.0-2.0) H Sodium Level 141 mEQ/L (135-145) Potassium Level 3.7 mEQ/L (3.4-4.9) Chloride Level 92 mEQ/L (98-107) L Carbon Dioxide Level 29 mEQ/L (20-30) Anion Gap 20 (5-15) H Blood Urea Nitrogen 47 mg/dL (7-23) H Creatinine 5.4 mg/dL (0.7-1.2) H Estimat Glomerular Filtration Rate 10.6 mL/min (>60) Glucose Level 287 mg/dL (74-106) H Calcium Level 9.5 mg/dL (8.6-10.2) Random Vancomycin Level 17.0 ug/mL Intake and Output 09/18/16 09/19/16 19:00 07:00 Intake Total 430 ml 695 ml Output Total 2001 ml Balance -1571 ml 695 ml IV Total 175 ml Tube Feeding 370 ml 420 ml Other 60 ml 100 ml Stool Total 1 ml Hemodialysis UF 2000 ml # Bowel Movements 4 Objective General Appearance: WD/WN, lethargic EENT: PERRL/EOMI, normal ENT inspection, TMs normal Neck: non-tender, normal alignment, supple Cardiovascular: normal peripheral pulses, normal rate, regular rhythm, no gallop/murmur, no JVD Respiratory/Chest: Mech vent; chest wall non-tender, crackles/rales, rhonchi - bilaterally, expiratory wheezing Abdomen: normal bowel sounds, non tender, soft, no organomegaly Skin: normal pigmentation, warm/dry Assessment/Plan Problem List: (1) HTN (hypertension) Assessment & Plan: Cont amlodipine. (2) Hyperkalemia (3) Respiratory failure with hypoxia Assessment & Plan: Intubated and sedated. (4) ESRD (end stage renal disease) Assessment & Plan: See nephrology note. Last Hemodialysis 09/18/16 per nephrology (5) CHF (congestive heart failure) (6) Diabetes mellitus Assessment & Plan: Cont novolog sliding scale. 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 (9) Anoxic encephalopathy syndrome Assessment & Plan: See neruo note. (10) Enterobacter sepsis (11) Pneumonia Assessment & Plan: Enterobacter. cont [email or web address] per ID Status: not improved Assessment/Plan Await tracheostomy and PEG FILIBERTO CLANCY Sep 19, 2016 16:50
--- NOTE | 2016-09-19 18:39 | Cardiology Progress Note ---
Assessment/Plan Assessment/Plan cardiopulm arrest anoxic encephalopathy esrd on hd noncompliant with dialysis htn chronic diastolic failure hx cad status epilepticus fever telel neg sinus on the vent dialysis as planned moves spont bp seem ok d/w rn not seem any change neuro reyna alto fo secretion per rn febrile I WILL BE AWAY 09/21-10/02 COVERIGN MD WILL SEE Subjective ROS Limited/Unobtainable: Yes Subjective on vent not responsive except to noxious stimuli grimaces Objective Last 24 Hour Vital Signs Date Time Temp Pulse Resp B/P Pulse Ox O2 Delivery O2 Flow Rate FiO2 09/19/16 18:22 121/39 09/19/16 18:00 99.7 96 22 121/39 98 Mechanical Ventilator 30 09/19/16 17:00 98 24 148/50 98 Mechanical Ventilator 30 09/19/16 16:41 92 15 30 09/19/16 16:00 99 20 133/45 100 Mechanical Ventilator 30 09/19/16 16:00 98 09/19/16 16:00 30 09/19/16 15:36 92 16 100 Mechanical Ventilator 30 09/19/16 15:26 103 14 99 Mechanical Ventilator 30 09/19/16 15:26 30 09/19/16 15:24 102 20 30 09/19/16 15:00 99.8 104 22 133/55 100 Mechanical Ventilator 30 09/19/16 14:00 105 24 133/50 100 Mechanical Ventilator 30 09/19/16 13:15 99.2 09/19/16 13:00 103 20 133/52 100 Mechanical Ventilator 30 09/19/16 12:55 106 24 30 09/19/16 12:00 30 09/19/16 12:00 102 09/19/16 12:00 102 22 139/64 100 Mechanical Ventilator 30 09/19/16 11:15 95 16 100 Mechanical Ventilator 30 09/19/16 11:07 100 22 30 09/19/16 11:06 30 09/19/16 11:05 101 22 99 Mechanical Ventilator 30 09/19/16 11:00 98.9 99 22 139/54 100 Mechanical Ventilator 30 09/19/16 10:00 97 24 119/42 100 Mechanical Ventilator 30 09/19/16 09:12 90 14 30 09/19/16 09:00 98 29 98/28 97 Mechanical Ventilator 30 09/19/16 08:07 152/48 09/19/16 08:07 92 152/48 09/19/16 08:00 30 09/19/16 08:00 92 09/19/16 08:00 99.2 92 22 150/48 100 Mechanical Ventilator 30 09/19/16 07:55 93 16 100 Mechanical Ventilator 30 09/19/16 07:46 30 09/19/16 07:45 93 15 99 Mechanical Ventilator 30 09/19/16 07:16 91 19 30 09/19/16 07:00 97 29 152/48 97 Mechanical Ventilator 30 09/19/16 06:00 90 19 159/43 95 Mechanical Ventilator 30 09/19/16 05:00 87 20 143/40 96 Mechanical Ventilator 30 09/19/16 04:39 90 20 30 09/19/16 04:00 90 09/19/16 04:00 30 09/19/16 04:00 99.1 94 24 159/43 95 Mechanical Ventilator 30 09/19/16 03:25 80 18 100 Mechanical Ventilator 30 09/19/16 03:14 90 18 100 Mechanical Ventilator 30 09/19/16 03:14 30 09/19/16 03:13 90 18 30 09/19/16 03:00 87 21 143/40 100 Mechanical Ventilator 30 09/19/16 02:00 84 19 142/39 100 Mechanical Ventilator 30 09/19/16 01:21 90 28 30 09/19/16 01:00 90 15 142/39 100 Mechanical Ventilator 30 09/19/16 00:00 98.6 89 23 123/40 99 Mechanical Ventilator 30 09/19/16 00:00 30 09/19/16 00:00 88 09/18/16 23:24 83 12 100 Mechanical Ventilator 30 09/18/16 23:08 89 28 100 Mechanical Ventilator 30 09/18/16 23:08 30 09/18/16 23:07 89 28 30 09/18/16 23:00 86 15 123/40 99 Mechanical Ventilator 30 09/18/16 22:00 91 16 133/47 100 Mechanical Ventilator 30 09/18/16 21:23 102 24 30 09/18/16 21:00 99.8 100 24 133/47 100 Mechanical Ventilator 30 09/18/16 20:00 100.4 102 25 133/47 99 Mechanical Ventilator 30 09/18/16 20:00 30 09/18/16 20:00 102 09/18/16 19:39 104 17 100 Mechanical Ventilator 30 09/18/16 19:18 30 09/18/16 19:18 103 25 100 Mechanical Ventilator 30 09/18/16 19:15 104 25 30 09/18/16 19:06 142/43 09/18/16 19:00 105 24 138/41 100 Mechanical Ventilator 30 General Appearance: agitated, on vent Neck: supple Cardiovascular: normal rate, regular rhythm, tachycardia Respiratory/Chest: rhonchi - bilaterally Abdomen: normal bowel sounds, non tender, soft Extremities: no swelling Intake and Output 09/18/16 09/19/16 19:00 07:00 Intake Total 430 ml 695 ml Output Total 2001 ml Balance -1571 ml 695 ml IV Total 175 ml Tube Feeding 370 ml 420 ml Other 60 ml 100 ml Stool Total 1 ml Hemodialysis UF 2000 ml # Bowel Movements 4 Laboratory Tests Test 09/19/16 06:00 White Blood Count 14.1 K/UL (4.8-10.8) H Red Blood Count 2.92 M/UL (4.70-6.10) L Hemoglobin 8.8 G/DL (14.2-18.0) L Hematocrit 28.2 % (42.0-52.0) L Mean Corpuscular Volume 96 FL (80-99) Mean Corpuscular Hemoglobin 30.1 PG (27.0-31.0) Mean Corpuscular Hemoglobin Concent 31.3 G/DL (32.0-36.0) L Red Cell Distribution Width 15.9 % (11.6-14.8) H Platelet Count 298 K/UL (150-450) Mean Platelet Volume 6.3 FL (6.5-10.1) L Neutrophils (%) (Auto) 73.1 % (45.0-75.0) Lymphocytes (%) (Auto) 10.6 % (20.0-45.0) L Monocytes (%) (Auto) 10.7 % (1.0-10.0) H Eosinophils (%) (Auto) 2.4 % (0.0-3.0) Basophils (%) (Auto) 3.2 % (0.0-2.0) H Sodium Level 141 mEQ/L (135-145) Potassium Level 3.7 mEQ/L (3.4-4.9) Chloride Level 92 mEQ/L (98-107) L Carbon Dioxide Level 29 mEQ/L (20-30) Anion Gap 20 (5-15) H Blood Urea Nitrogen 47 mg/dL (7-23) H Creatinine 5.4 mg/dL (0.7-1.2) H Estimat Glomerular Filtration Rate 10.6 mL/min (>60) Glucose Level 287 mg/dL (74-106) H Calcium Level 9.5 mg/dL (8.6-10.2) Random Vancomycin Level 17.0 ug/mL HUSSEIN CAGE 16, 2017 18:39
[2016-09-19] MEDS: Cefepime HCl 500 MG in D5W 55 ML IV SCH (19:58)
--- NOTE | 2016-09-19 22:59 | General Progress Note ---
Assessment/Plan Assessment/Plan Assessment - TF intolerance - resolved - possibly due to DM gastroparesis - encephalopathy - resp failure - renal failure - Anemia Recommendations - BID IV PPI - ATC IV reglan - TF. - Monitor residuals - PEG early next week Subjective Allergies: Coded Allergies: NIACIN (Verified Allergy, Unknown, ITCHING, 01/30/12) Subjective Above noted seen in ICU On tube feedings family gave consent today for PEG Objective Last 24 Hour Vital Signs Date Time Temp Pulse Resp B/P Pulse Ox O2 Delivery O2 Flow Rate FiO2 09/19/16 22:00 94 23 128/38 100 Mechanical Ventilator 30 09/19/16 21:00 99.2 93 20 128/38 99 Mechanical Ventilator 30 09/19/16 20:44 90 12 30 09/19/16 20:00 30 09/19/16 20:00 99.5 94 24 104/49 100 Mechanical Ventilator 30 09/19/16 20:00 94 09/19/16 19:30 92 18 100 Mechanical Ventilator 30 09/19/16 19:20 99.7 09/19/16 19:16 30 09/19/16 19:07 92 18 98 Mechanical Ventilator 30 09/19/16 19:07 92 18 30 09/19/16 19:00 95 20 104/49 100 Mechanical Ventilator 30 09/19/16 18:22 121/39 09/19/16 18:00 99.7 96 22 121/39 98 Mechanical Ventilator 30 09/19/16 17:00 98 24 148/50 98 Mechanical Ventilator 30 09/19/16 16:41 92 15 30 09/19/16 16:00 99 20 133/45 100 Mechanical Ventilator 30 09/19/16 16:00 98 09/19/16 16:00 30 09/19/16 15:36 92 16 100 Mechanical Ventilator 30 09/19/16 15:26 103 14 99 Mechanical Ventilator 30 09/19/16 15:26 30 09/19/16 15:24 102 20 30 09/19/16 15:00 99.8 104 22 133/55 100 Mechanical Ventilator 30 09/19/16 14:00 105 24 133/50 100 Mechanical Ventilator 30 09/19/16 13:00 103 20 133/52 100 Mechanical Ventilator 30 09/19/16 12:55 106 24 30 09/19/16 12:00 30 09/19/16 12:00 102 09/19/16 12:00 102 22 139/64 100 Mechanical Ventilator 30 09/19/16 11:15 95 16 100 Mechanical Ventilator 30 09/19/16 11:07 100 22 30 09/19/16 11:06 30 09/19/16 11:05 101 22 99 Mechanical Ventilator 30 09/19/16 11:00 98.9 99 22 139/54 100 Mechanical Ventilator 30 09/19/16 10:00 97 24 119/42 100 Mechanical Ventilator 30 09/19/16 09:12 90 14 30 09/19/16 09:00 98 29 98/28 97 Mechanical Ventilator 30 09/19/16 08:07 152/48 09/19/16 08:07 92 152/48 09/19/16 08:00 30 09/19/16 08:00 92 09/19/16 08:00 99.2 92 22 150/48 100 Mechanical Ventilator 30 09/19/16 07:55 93 16 100 Mechanical Ventilator 30 09/19/16 07:46 30 09/19/16 07:45 93 15 99 Mechanical Ventilator 30 09/19/16 07:16 91 19 30 09/19/16 07:00 97 29 152/48 97 Mechanical Ventilator 30 09/19/16 06:00 90 19 159/43 95 Mechanical Ventilator 30 09/19/16 05:00 87 20 143/40 96 Mechanical Ventilator 30 09/19/16 04:39 90 20 30 09/19/16 04:00 90 09/19/16 04:00 30 09/19/16 04:00 99.1 94 24 159/43 95 Mechanical Ventilator 30 09/19/16 03:25 80 18 100 Mechanical Ventilator 30 09/19/16 03:14 90 18 100 Mechanical Ventilator 30 09/19/16 03:14 30 09/19/16 03:13 90 18 30 09/19/16 03:00 87 21 143/40 100 Mechanical Ventilator 30 09/19/16 02:00 84 19 142/39 100 Mechanical Ventilator 30 09/19/16 01:21 90 28 30 09/19/16 01:00 90 15 142/39 100 Mechanical Ventilator 30 09/19/16 00:00 98.6 89 23 123/40 99 Mechanical Ventilator 30 09/19/16 00:00 30 09/19/16 00:00 88 09/18/16 23:24 83 12 100 Mechanical Ventilator 30 09/18/16 23:08 89 28 100 Mechanical Ventilator 30 09/18/16 23:08 30 09/18/16 23:07 89 28 30 09/18/16 23:00 86 15 123/40 99 Mechanical Ventilator 30 Intake and Output 09/18/16 09/19/16 19:00 07:00 Intake Total 430 ml 695 ml Output Total 2001 ml Balance -1571 ml 695 ml IV Total 175 ml Tube Feeding 370 ml 420 ml Other 60 ml 100 ml Stool Total 1 ml Hemodialysis UF 2000 ml # Bowel Movements 4 Laboratory Tests 09/19/16 06:00: White Blood Count 14.1H, Red Blood Count 2.92L, Hemoglobin 8.8L, Hematocrit 28.2L, Mean Corpuscular Volume 96, Mean Corpuscular Hemoglobin 30.1, Mean Corpuscular Hemoglobin Concent 31.3L, Red Cell Distribution Width 15.9H, Platelet Count 298, Mean Platelet Volume 6.3L, Neutrophils (%) (Auto) 73.1, Lymphocytes (%) (Auto) 10.6L, Monocytes (%) (Auto) 10.7H, Eosinophils (%) (Auto ) 2.4, Basophils (%) (Auto) 3.2H, Sodium Level 141, Potassium Level 3.7, Chloride Level 92L, Carbon Dioxide Level 29, Anion Gap 20H, Blood Urea Nitrogen 47H, Creatinine 5.4H, Estimat Glomerular Filtration Rate 10.6, Glucose Level 287H, Calcium Level 9.5, Random Vancomycin Level 17.0 Height (Feet): 5 Height (Inches): 6.00 Weight (Pounds): 167 Objective Intubated and unresponsive NCAT, (+) feeding tube and ETT supple Coarse BS and occ wheeze RR soft ND abdomen no edema ANNE CURRAN Sep 19, 2016 22:59
[2016-09-20] VITALS (24 sets, daily range): BP systolic 62–124; BP diastolic 24–61
[2016-09-20] MEDS: NovoLOG Insulin Flexpen SUBQ SCH ×4 (00:24→18:00)
[2016-09-20] MEDS: DuoNeb 0.5-3(2.5)mg/3ml neb HHN SCH ×6 (03:13→23:20)
[2016-09-20] MEDS: Metoclopramide 10mg/2ml Inj IVP SCH ×4 (04:30→22:10)
[2016-09-20 05:06] LABS: MEAN CORPUSCULAR HEMOGLOBIN 31.5 PG (27.0-31.0); MEAN CORPUSCULAR HGB CONC 32.7 G/DL (32.0-36.0); MEAN CORPUSCULAR VOLUME 96 FL (80-99); MEAN PLATELET VOLUME 6.7 FL (6.5-10.1); PLATELET COUNT 315 K/UL (150-450); RED CELL DISTRIBUTION WIDTH 15.5 % (11.6-14.8); WHITE BLOOD COUNT 21.4 K/UL (4.8-10.8)
[2016-09-20 05:31] LABS: CALCIUM 10.4 mg/dL (8.6-10.2); CREATININE 6.8 mg/dL (0.7-1.2); GLOMERULAR FILTRATION RATE 8.1 mL/min (>60); POTASSIUM 3.7 mEQ/L (3.4-4.9)
[2016-09-20 08:08] LABS: BAND NEUTROPHILS % (MANUAL) 0 % (0-8); BASOPHILS % (MANUAL) 0 % (0-2); EOSINOPHILS % (MANUAL) 3 % (0-3); LYMPHOCYTES % (MANUAL) 26 % (20-45); NEUTROPHILS % (MANUAL) 63 % (45-75); PLATELET ESTIMATE ADEQUATE; PLATELET MORPHOLOGY NORMAL; TOTAL CELLS COUNTED 100
[2016-09-20] MEDS: Phenytoin Susp 100mg/4ml GT SCH ×2 (08:41→21:54)
[2016-09-20] MEDS: Valproic Acid 250mg/5ml Liquid GT SCH ×3 (08:41→21:48)
[2016-09-20] MEDS: Pantoprazole Inj IVP SCH ×2 (08:42→21:58)
[2016-09-20] MEDS: Minoxidil 10mg tab GT SCH ×2 (08:42→17:26)
[2016-09-20] MEDS: Dyna-Hex 2% Top Sol 8oz TOPIC SCH (08:44)
[2016-09-20] MEDS: Heparin 5000 units/ml inj SUBQ SCH ×2 (08:55→22:06)
[2016-09-20] MEDS ORDERED: Tubing IV Secondary IV ONE (09:30)
[2016-09-20] MEDS ORDERED: NS 275ml ONE (09:30)
--- NOTE | 2016-09-20 13:47 | General Progress Note ---
Assessment/Plan Assessment/Plan Assessment - TF intolerance - resolved - possibly due to DM gastroparesis - encephalopathy - resp failure - renal failure - Anemia Recommendations - BID IV PPI - ATC IV reglan - TF. - Monitor residuals - PEG Tues am at 0700 Subjective Allergies: Coded Allergies: NIACIN (Verified Allergy, Unknown, ITCHING, 01/30/12) Subjective Above noted seen in ICU On tube feedings awaiting PEG/Trach Objective Last 24 Hour Vital Signs Date Time Temp Pulse Resp B/P Pulse Ox O2 Delivery O2 Flow Rate FiO2 09/20/16 12:47 90 28 30 09/20/16 12:00 84 09/20/16 12:00 30 09/20/16 12:00 98.5 84 23 98/42 100 Mechanical Ventilator 30 09/20/16 11:35 85 16 100 Mechanical Ventilator 30 09/20/16 11:28 30 09/20/16 11:28 96 14 99 Mechanical Ventilator 30 09/20/16 11:00 82 23 112/38 100 Mechanical Ventilator 30 09/20/16 11:00 86 18 30 09/20/16 10:00 93 23 110/42 100 Mechanical Ventilator 30 09/20/16 09:00 84 17 30 09/20/16 09:00 93 23 94/34 100 Mechanical Ventilator 30 09/20/16 08:43 86 100/34 09/20/16 08:42 100/34 09/20/16 08:00 88 09/20/16 08:00 98.5 93 22 98/40 100 Mechanical Ventilator 30 09/20/16 08:00 30 09/20/16 07:09 91 22 100 Mechanical Ventilator 30 09/20/16 07:09 94 29 30 09/20/16 07:02 30 09/20/16 07:02 94 21 99 Mechanical Ventilator 30 09/20/16 07:00 93 23 124/43 100 Mechanical Ventilator 30 09/20/16 06:00 83 20 103/40 97 Mechanical Ventilator 30 09/20/16 05:19 89 15 30 09/20/16 05:00 87 20 103/40 95 Mechanical Ventilator 30 09/20/16 04:00 93 09/20/16 04:00 30 09/20/16 04:00 99.0 92 24 92/40 99 Mechanical Ventilator 30 09/20/16 03:20 90 16 100 Mechanical Ventilator 30 09/20/16 03:20 30 09/20/16 03:13 85 16 100 Mechanical Ventilator 30 09/20/16 03:12 85 15 30 09/20/16 03:00 86 20 92/40 100 Mechanical Ventilator 30 09/20/16 02:00 90 20 98/33 99 Mechanical Ventilator 30 09/20/16 01:12 91 22 30 09/20/16 01:00 92 23 98/33 99 Mechanical Ventilator 30 09/20/16 00:00 93 09/20/16 00:00 30 09/20/16 00:00 98.2 92 20 109/38 100 Mechanical Ventilator 30 09/19/16 23:30 90 19 100 Mechanical Ventilator 30 09/19/16 23:30 30 09/19/16 23:08 90 25 100 Mechanical Ventilator 30 09/19/16 23:07 90 21 30 09/19/16 23:00 91 23 109/38 100 Mechanical Ventilator 30 09/19/16 22:00 94 23 128/38 100 Mechanical Ventilator 30 09/19/16 21:00 99.2 93 20 128/38 99 Mechanical Ventilator 30 09/19/16 20:44 90 12 30 09/19/16 20:00 30 09/19/16 20:00 99.5 94 24 104/49 100 Mechanical Ventilator 30 09/19/16 20:00 94 09/19/16 19:30 92 18 100 Mechanical Ventilator 30 09/19/16 19:20 99.7 09/19/16 19:16 30 09/19/16 19:07 92 18 98 Mechanical Ventilator 30 09/19/16 19:07 92 18 30 09/19/16 19:00 95 20 104/49 100 Mechanical Ventilator 30 09/19/16 18:22 121/39 09/19/16 18:00 99.7 96 22 121/39 98 Mechanical Ventilator 30 09/19/16 17:00 98 24 148/50 98 Mechanical Ventilator 30 17 16:41 92 15 30 09/19/16 16:00 99 20 133/45 100 Mechanical Ventilator 30 17 16:00 98 09/19/17 16:00 30 09/19/16 15:36 92 16 100 Mechanical Ventilator 30 17 15:26 103 14 99 Mechanical Ventilator 30 17 15:26 30 09/19/17 15:24 102 20 30 6/16/17 15:00 99.8 104 22 133/55 100 Mechanical Ventilator 30 09/19/16 14:00 105 24 133/50 100 Mechanical Ventilator 30 Intake and Output 09/19/16 09/20/16 19:00 07:00 Intake Total 915 ml 595 ml Balance 915 ml 595 ml IV Total 275 ml 55 ml Tube Feeding 540 ml 480 ml Other 100 ml 60 ml # Voids 1 # Bowel Movements 4 2 Laboratory Tests 09/20/16 04:30: White Blood Count 21.4#H, Red Blood Count 3.10L, Hemoglobin 9.8L, Hematocrit 29.9L, Mean Corpuscular Volume 96, Mean Corpuscular Hemoglobin 31.5H, Mean Corpuscular Hemoglobin Concent 32.7, Red Cell Distribution Width 15.5H, Platelet Count 315, Mean Platelet Volume 6.7, Neutrophils (%) (Auto) , Lymphocytes (%) (Auto) , Monocytes (%) (Auto) , Eosinophils (%) (Auto) , Basophils (%) (Auto) , Neutrophils % (Manual) [Pending], Lymphocytes % (Manual) [Pending], Platelet Estimate [Pending], Platelet Morphology [Pending], Sodium Level 144, Potassium Level 3.7, Chloride Level 92L, Carbon Dioxide Level 29, Anion Gap 23H, Blood Urea Nitrogen 69H, Creatinine 6.8H, Estimat Glomerular Filtration Rate 8.1, Glucose Level 257H, Calcium Level 10.4H, Phosphorus Level 5.0H Height (Feet): 5 Height (Inches): 6.00 Weight (Pounds): 167 Objective Intubated and unresponsive NCAT, (+) feeding tube and ETT supple Coarse BS and occ wheeze RR soft ND abdomen no edema ANNE CURRAN Sep 20, 2016 13:47
--- NOTE | 2016-09-20 13:56 | Internal Med Progress Note ---
Subjective Date of Service: Sep 20, 2016 Physician Name Filiberto Clancy Attending Physician Harrison Delatorre Current Medications Medications (Trade) Dose Ordered Sig/Mark Route PRN Reason Start Time Stop Time Status Last Admin Dose Admin Acetaminophen (Tylenol) 650 mg Q4H PRN ORAL Mild Pain (Pain Scale 1-3) 09/06/16 23:00 10/06/16 22:59 09/19/16 18:21 Albuterol/ Ipratropium (DuoNeb 0.5-3(2.5)mg/3ml) 3 ml Q4HRT HHN 09/16/16 11:00 09/21/16 10:59 09/20/16 11:28 Amlodipine Besylate (Norvasc) 10 mg DAILY GT 09/15/16 10:56 10/07/16 08:59 09/19/16 08:07 Cefepime HCl 500 mg/Dextrose 55 ml @ 110 mls/hr Q24H IV 09/18/16 20:00 09/25/16 19:59 09/19/16 19:58 Chlorhexidine Gluconate (Lakshmi-Hex 2%) 1 applic DAILY TOPIC 09/10/16 03:30 10/10/16 03:29 09/20/16 08:44 Dextrose (Dextrose 50%) STAT PRN IV Hypoglycemia 09/06/16 23:00 10/06/16 22:59 Heparin Sodium (Porcine) (Heparin 5000 units/ml) 5,000 units EVERY 12 HOURS SUBQ 09/08/16 21:00 10/08/16 20:59 09/20/16 08:55 Heparin Sodium (Porcine) (Heparin Sod 1000 units/ml 10ml) 2,000 unit ONCE PRN IV FOR HD USE ONLY 09/19/16 12:30 09/20/16 23:59 Insulin Aspart (NovoLOG) EVERY 6 HOURS SUBQ 09/07/16 18:00 10/07/16 17:59 09/20/16 12:16 Lorazepam (Ativan 2mg/ml 1ml) 1 mg Q1HR PRN IV For Seizure Activity 09/15/16 22:45 09/22/16 22:44 Metoclopramide HCl (Reglan) 5 mg Q6H IVP 09/15/16 22:30 10/15/16 22:29 09/20/16 10:23 Minoxidil (Loniten) 15 mg BID GT 09/15/16 10:57 10/13/16 17:59 09/20/16 08:42 Pantoprazole (Protonix) 40 mg EVERY 12 HOURS IVP 09/15/16 22:30 10/15/16 22:29 09/20/16 08:42 Phenytoin 300 mg 300 mg Q12HR GT 09/18/16 21:00 10/18/16 20:59 09/20/16 08:41 Phenytoin/Sodium Chloride (Dilantin/Sodium Chloride) 120 ml @ 120 mls/hr POSTHD IVPB 09/17/16 21:00 10/17/16 20:59 09/18/16 21:52 Polyethylene Glycol (Miralax) 17 gm DAILYPRN PRN ORAL Constipation 09/06/16 23:00 10/06/16 22:59 Sodium Chloride (Sodium Chloride 1000ml bag) 1,000 ml @ 500 mls/hr Q2H PRN IVLG sbp<90 during hd 09/19/16 12:28 09/20/16 23:59 Valproic Acid (Depakene) 1,000 mg POSTHD GT 09/17/16 18:00 10/17/16 17:59 09/19/16 01:51 Valproic Acid (Depakene) 1,500 mg Q12HR GT 09/17/16 21:00 10/17/16 20:59 09/20/16 08:41 Vancomycin HCl 1 ea 1 ea DAILY PRN MISC Per rx protocol 09/17/16 17:30 10/17/16 17:29 Allergies: Coded Allergies: NIACIN (Verified Allergy, Unknown, ITCHING, 01/30/12) ROS Limited/Unobtainable: Yes Subjective 71 YO M admitted with volume overload and respiratory failure. S/P cardiopulmonary arrest. ICU. Intubated and sedated. Cover for Int Brad-Dr Vail. Family agrees to PEG and tracheostomy Objective Last Vital Signs Date Time Temp Pulse Resp B/P Pulse Ox O2 Delivery O2 Flow Rate FiO2 09/20/16 12:47 90 28 30 09/20/16 12:00 98.5 98/42 100 Mechanical Ventilator 09/18/16 18:05 4.0 Laboratory Tests Test 09/20/16 04:30 White Blood Count 21.4 K/UL (4.8-10.8) #H Red Blood Count 3.10 M/UL (4.70-6.10) L Hemoglobin 9.8 G/DL (14.2-18.0) L Hematocrit 29.9 % (42.0-52.0) L Mean Corpuscular Volume 96 FL (80-99) Mean Corpuscular Hemoglobin 31.5 PG (27.0-31.0) H Mean Corpuscular Hemoglobin Concent 32.7 G/DL (32.0-36.0) Red Cell Distribution Width 15.5 % (11.6-14.8) H Platelet Count 315 K/UL (150-450) Mean Platelet Volume 6.7 FL (6.5-10.1) Neutrophils (%) (Auto) % (45.0-75.0) Lymphocytes (%) (Auto) % (20.0-45.0) Monocytes (%) (Auto) % (1.0-10.0) Eosinophils (%) (Auto) % (0.0-3.0) Basophils (%) (Auto) % (0.0-2.0) Neutrophils % (Manual) Pending Lymphocytes % (Manual) Pending Platelet Estimate Pending Platelet Morphology Pending Sodium Level 144 mEQ/L (135-145) Potassium Level 3.7 mEQ/L (3.4-4.9) Chloride Level 92 mEQ/L (98-107) L Carbon Dioxide Level 29 mEQ/L (20-30) Anion Gap 23 (5-15) H Blood Urea Nitrogen 69 mg/dL (7-23) H Creatinine 6.8 mg/dL (0.7-1.2) H Estimat Glomerular Filtration Rate 8.1 mL/min (>60) Glucose Level 257 mg/dL (74-106) H Calcium Level 10.4 mg/dL (8.6-10.2) H Phosphorus Level 5.0 mg/dL (2.5-4.8) H Intake and Output 09/19/16 09/20/16 19:00 07:00 Intake Total 915 ml 595 ml Balance 915 ml 595 ml IV Total 275 ml 55 ml Tube Feeding 540 ml 480 ml Other 100 ml 60 ml # Voids 1 # Bowel Movements 4 2 Objective General Appearance: WD/WN, lethargic EENT: PERRL/EOMI, normal ENT inspection, TMs normal Neck: non-tender, normal alignment, supple Cardiovascular: normal peripheral pulses, normal rate, regular rhythm, no gallop/murmur, no JVD Respiratory/Chest: Mech vent; chest wall non-tender, crackles/rales, rhonchi - bilaterally, expiratory wheezing Abdomen: normal bowel sounds, non tender, soft, no organomegaly Skin: normal pigmentation, warm/dry Assessment/Plan Problem List: (1) HTN (hypertension) Assessment & Plan: Cont amlodipine. (2) Hyperkalemia (3) Respiratory failure with hypoxia Assessment & Plan: Intubated and sedated. (4) ESRD (end stage renal disease) Assessment & Plan: See nephrology note. Last Hemodialysis 09/20/16 per nephrology (5) CHF (congestive heart failure) (6) Diabetes mellitus Assessment & Plan: Cont novolog sliding scale. 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 (9) Anoxic encephalopathy syndrome Assessment & Plan: See neruo note. (10) Enterobacter sepsis (11) Pneumonia Assessment & Plan: Enterobacter. cont cefepime per ID Assessment/Plan Await tracheostomy and PEG FILIBERTO CLANCY Sep 20, 2016 13:55
--- NOTE | 2016-09-20 16:17 | Nephrology Progress Note ---
Assessment/Plan Problem List: (1) ESRD (end stage renal disease) (2) Anoxic encephalopathy syndrome (3) Respiratory failure with hypoxia (4) CHF (congestive heart failure) (5) HTN (hypertension) Assessment R arm edema Plan HD as tolerated Vent support Discussed with HD RN follow labs TF PEG and Trach Subjective Subjective remains intubated no improvement in MS See during dialysis Objective Objective Last 24 Hour Vital Signs Date Time Temp Pulse Resp B/P Pulse Ox O2 Delivery O2 Flow Rate FiO2 09/20/16 15:22 94 24 100 Mechanical Ventilator 30 09/20/16 15:17 88 16 100 Mechanical Ventilator 30 09/20/16 15:17 30 09/20/16 15:00 92 27 30 09/20/16 15:00 85 20 124/61 100 Mechanical Ventilator 30 09/20/16 14:00 88 23 105/50 100 Mechanical Ventilator 30 09/20/16 13:50 Mechanical Ventilator 4.0 30 09/20/16 13:00 87 23 102/42 100 Mechanical Ventilator 30 09/20/16 12:47 90 28 30 09/20/16 12:00 84 09/20/16 12:00 30 09/20/16 12:00 98.5 84 23 98/42 100 Mechanical Ventilator 30 09/20/16 11:35 85 16 100 Mechanical Ventilator 30 09/20/16 11:28 30 09/20/16 11:28 96 14 99 Mechanical Ventilator 30 09/20/16 11:00 82 23 112/38 100 Mechanical Ventilator 30 09/20/16 11:00 86 18 30 09/20/16 10:00 93 23 110/42 100 Mechanical Ventilator 30 09/20/16 09:00 84 17 30 09/20/16 09:00 93 23 94/34 100 Mechanical Ventilator 30 09/20/16 08:43 86 100/34 09/20/16 08:42 100/34 09/20/16 08:00 88 09/20/16 08:00 98.5 93 22 98/40 100 Mechanical Ventilator 30 09/20/16 08:00 30 09/20/16 07:09 91 22 100 Mechanical Ventilator 30 09/20/16 07:09 94 29 30 09/20/16 07:02 30 09/20/16 07:02 94 21 99 Mechanical Ventilator 30 09/20/16 07:00 93 23 124/43 100 Mechanical Ventilator 30 09/20/16 06:00 83 20 103/40 97 Mechanical Ventilator 30 09/20/16 05:19 89 15 30 09/20/16 05:00 87 20 103/40 95 Mechanical Ventilator 30 09/20/16 04:00 93 09/20/16 04:00 30 09/20/16 04:00 99.0 92 24 92/40 99 Mechanical Ventilator 30 09/20/16 03:20 90 16 100 Mechanical Ventilator 30 09/20/16 03:20 30 09/20/16 03:13 85 16 100 Mechanical Ventilator 30 09/20/16 03:12 85 15 30 09/20/16 03:00 86 20 92/40 100 Mechanical Ventilator 30 09/20/16 02:00 90 20 98/33 99 Mechanical Ventilator 30 09/20/16 01:12 91 22 30 09/20/16 01:00 92 23 98/33 99 Mechanical Ventilator 30 09/20/16 00:00 93 09/20/16 00:00 30 09/20/16 00:00 98.2 92 20 109/38 100 Mechanical Ventilator 30 09/19/16 23:30 90 19 100 Mechanical Ventilator 30 09/19/16 23:30 30 09/19/16 23:08 90 25 100 Mechanical Ventilator 30 09/19/16 23:07 90 21 30 09/19/16 23:00 91 23 109/38 100 Mechanical Ventilator 30 09/19/16 22:00 94 23 128/38 100 Mechanical Ventilator 30 09/19/16 21:00 99.2 93 20 128/38 99 Mechanical Ventilator 30 09/19/16 20:44 90 12 30 09/19/16 20:00 30 09/19/16 20:00 99.5 94 24 104/49 100 Mechanical Ventilator 30 09/19/16 20:00 94 09/19/16 19:30 92 18 100 Mechanical Ventilator 30 09/19/16 19:20 99.7 09/19/16 19:16 30 09/19/16 19:07 92 18 98 Mechanical Ventilator 30 09/19/16 19:07 92 18 30 09/19/16 19:00 95 20 104/49 100 Mechanical Ventilator 30 09/19/16 18:22 121/39 09/19/16 18:00 99.7 96 22 121/39 98 Mechanical Ventilator 30 09/19/16 17:00 98 24 148/50 98 Mechanical Ventilator 30 09/19/16 16:41 92 15 30 Intake and Output 09/19/16 09/20/16 19:00 07:00 Intake Total 915 ml 595 ml Balance 915 ml 595 ml IV Total 275 ml 55 ml Tube Feeding 540 ml 480 ml Other 100 ml 60 ml # Voids 1 # Bowel Movements 4 2 Laboratory Tests 09/20/16 04:30: White Blood Count 21.4#H, Red Blood Count 3.10L, Hemoglobin 9.8L, Hematocrit 29.9L, Mean Corpuscular Volume 96, Mean Corpuscular Hemoglobin 31.5H, Mean Corpuscular Hemoglobin Concent 32.7, Red Cell Distribution Width 15.5H, Platelet Count 315, Mean Platelet Volume 6.7, Neutrophils (%) (Auto) , Lymphocytes (%) (Auto) , Monocytes (%) (Auto) , Eosinophils (%) (Auto) , Basophils (%) (Auto) , Neutrophils % (Manual) [Pending], Lymphocytes % (Manual) [Pending], Platelet Estimate [Pending], Platelet Morphology [Pending], Sodium Level 144, Potassium Level 3.7, Chloride Level 92L, Carbon Dioxide Level 29, Anion Gap 23H, Blood Urea Nitrogen 69H, Creatinine 6.8H, Estimat Glomerular Filtration Rate 8.1, Glucose Level 257H, Calcium Level 10.4H, Phosphorus Level 5.0H Height (Feet): 5 Height (Inches): 6.00 Weight (Pounds): 167 Cardiovascular: normal rate Respiratory/Chest: lungs clear Extremities: other - no edema CANDICE BREAUX Sep 20, 2016 16:17
--- NOTE | 2016-09-20 18:46 | Pulmonolgy Critical Care Note ---
Critical Care - Asmt/Plan Assessment/Plan: 1. Status post cardiac arrest. 2. Renal failure with hyperkalemia. 3. Respiratory failure. 4. Anoxic encephalopathy. 5. Status epilepticus 6. Coronary artery disease. 7. History of cardiomyopathy. 8. Diabetes. 9. Hypertension. 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 Critical Care - Objective Last 24 Hour Vital Signs Date Time Temp Pulse Resp B/P Pulse Ox O2 Delivery O2 Flow Rate FiO2 09/20/16 17:26 103/40 09/20/16 17:12 88 22 30 09/20/16 16:40 Mechanical Ventilator 4.0 30 09/20/16 16:00 88 09/20/16 16:00 30 09/20/16 15:22 94 24 100 Mechanical Ventilator 30 09/20/16 15:17 88 16 100 Mechanical Ventilator 30 09/20/16 15:17 30 09/20/16 15:00 92 27 30 09/20/16 15:00 85 20 124/61 100 Mechanical Ventilator 30 09/20/16 14:00 88 23 105/50 100 Mechanical Ventilator 30 09/20/16 13:50 Mechanical Ventilator 4.0 30 09/20/16 13:00 87 23 102/42 100 Mechanical Ventilator 30 09/20/16 12:47 90 28 30 09/20/16 12:00 84 09/20/16 12:00 30 09/20/16 12:00 98.5 84 23 98/42 100 Mechanical Ventilator 30 09/20/16 11:35 85 16 100 Mechanical Ventilator 30 09/20/16 11:28 30 09/20/16 11:28 96 14 99 Mechanical Ventilator 30 09/20/16 11:00 82 23 112/38 100 Mechanical Ventilator 30 09/20/16 11:00 86 18 30 09/20/16 10:00 93 23 110/42 100 Mechanical Ventilator 30 09/20/16 09:00 84 17 30 09/20/16 09:00 93 23 94/34 100 Mechanical Ventilator 30 09/20/16 08:43 86 100/34 09/20/16 08:42 100/34 09/20/16 08:00 88 09/20/16 08:00 98.5 93 22 98/40 100 Mechanical Ventilator 30 09/20/16 08:00 30 09/20/16 07:09 91 22 100 Mechanical Ventilator 30 09/20/16 07:09 94 29 30 09/20/16 07:02 30 09/20/16 07:02 94 21 99 Mechanical Ventilator 30 09/20/16 07:00 93 23 124/43 100 Mechanical Ventilator 30 09/20/16 06:00 83 20 103/40 97 Mechanical Ventilator 30 09/20/16 05:19 89 15 30 09/20/16 05:00 87 20 103/40 95 Mechanical Ventilator 30 09/20/16 04:00 93 09/20/16 04:00 30 09/20/16 04:00 99.0 92 24 92/40 99 Mechanical Ventilator 30 09/20/16 03:20 90 16 100 Mechanical Ventilator 30 09/20/16 03:20 30 09/20/16 03:13 85 16 100 Mechanical Ventilator 30 09/20/16 03:12 85 15 30 09/20/16 03:00 86 20 92/40 100 Mechanical Ventilator 30 09/20/16 02:00 90 20 98/33 99 Mechanical Ventilator 30 09/20/16 01:12 91 22 30 09/20/16 01:00 92 23 98/33 99 Mechanical Ventilator 30 09/20/16 00:00 93 09/20/16 00:00 30 09/20/16 00:00 98.2 92 20 109/38 100 Mechanical Ventilator 30 09/19/16 23:30 90 19 100 Mechanical Ventilator 30 09/19/16 23:30 30 09/19/16 23:08 90 25 100 Mechanical Ventilator 30 09/19/16 23:07 90 21 30 09/19/16 23:00 91 23 109/38 100 Mechanical Ventilator 30 09/19/16 22:00 94 23 128/38 100 Mechanical Ventilator 30 09/19/16 21:00 99.2 93 20 128/38 99 Mechanical Ventilator 30 09/19/16 20:44 90 12 30 09/19/16 20:00 30 09/19/16 20:00 99.5 94 24 104/49 100 Mechanical Ventilator 30 09/19/16 20:00 94 09/19/16 19:30 92 18 100 Mechanical Ventilator 30 09/19/16 19:20 99.7 09/19/16 19:16 30 09/19/16 19:07 92 18 98 Mechanical Ventilator 30 09/19/16 19:07 92 18 30 09/19/16 19:00 95 20 104/49 100 Mechanical Ventilator 30 Status: obtunded Condition: critical Lungs: clear Heart: HR/BP stable Abdomen: non-tender Extremities: edema Decubiti: stage Micro: Microbiology Date/Time Source Procedure Growth Status 09/18/16 15:30 Blood Blood Culture - Preliminary NO GROWTH AFTER 24 HOURS Resulted 09/18/16 15:15 Blood Blood Culture - Preliminary NO GROWTH AFTER 24 HOURS Resulted Accucheck: 198 Blood Sugars: BS not controlled Critical Care - Subjective ROS Limited/Unobtainable: Yes FI02: 30 Vent Support Breath Rate: 12 Vent Support Mode: AC Vent Tidal Volume: 500 Sputum Amount: Small PIP: 29 Tube Feeding Amount: 60 I&O: Intake and Output 09/19/16 09/20/16 19:00 07:00 Intake Total 915 ml 595 ml Balance 915 ml 595 ml IV Total 275 ml 55 ml Tube Feeding 540 ml 480 ml Other 100 ml 60 ml # Voids 1 # Bowel Movements 4 2 Subjective: obtunded on the vent rr set 12 breathing 20 bp stable no visible seizure activity tolerating tf no pressors sedated at this time ET-Tube: 8.0 ET Position: 24 Labs: Microbiology Date/Time Source Procedure Growth Status 09/18/16 15:30 Blood Blood Culture - Preliminary NO GROWTH AFTER 24 HOURS Resulted 09/18/16 15:15 Blood Blood Culture - Preliminary NO GROWTH AFTER 24 HOURS Resulted Current Medications Medications (Trade) Dose Ordered Sig/Mark Route PRN Reason Start Time Stop Time Status Last Admin Dose Admin Acetaminophen (Tylenol) 650 mg Q4H PRN ORAL Mild Pain (Pain Scale 1-3) 09/06/16 23:00 10/06/16 22:59 09/19/16 18:21 Albuterol/ Ipratropium (DuoNeb 0.5-3(2.5)mg/3ml) 3 ml Q4HRT HHN 09/16/16 11:00 09/21/16 10:59 09/20/16 15:15 Amlodipine Besylate (Norvasc) 10 mg DAILY GT 09/15/16 10:56 10/07/16 08:59 09/19/16 08:07 Cefepime HCl 500 mg/Dextrose 55 ml @ 110 mls/hr Q24H IV 09/18/16 20:00 09/25/16 19:59 09/19/16 19:58 Chlorhexidine Gluconate (Lakshmi-Hex 2%) 1 applic DAILY TOPIC 09/10/16 03:30 10/10/16 03:29 09/20/16 08:44 Dextrose (Dextrose 50%) STAT PRN IV Hypoglycemia 09/06/16 23:00 10/06/16 22:59 Heparin Sodium (Porcine) (Heparin 5000 units/ml) 5,000 units EVERY 12 HOURS SUBQ 09/08/16 21:00 10/08/16 20:59 09/20/16 08:55 Heparin Sodium (Porcine) (Heparin Sod 1000 units/ml 10ml) 2,000 unit ONCE PRN IV FOR HD USE ONLY 09/19/16 12:30 09/20/16 23:59 Insulin Aspart (NovoLOG) EVERY 6 HOURS SUBQ 09/07/16 18:00 10/07/16 17:59 09/20/16 12:16 Lorazepam (Ativan 2mg/ml 1ml) 1 mg Q1HR PRN IV For Seizure Activity 09/15/16 22:45 09/22/16 22:44 Metoclopramide HCl (Reglan) 5 mg Q6H IVP 09/15/16 22:30 10/15/16 22:29 09/20/16 17:25 Minoxidil (Loniten) 15 mg BID GT 09/15/16 10:57 10/13/16 17:59 09/20/16 17:26 Pantoprazole (Protonix) 40 mg EVERY 12 HOURS IVP 09/15/16 22:30 10/15/16 22:29 09/20/16 08:42 Phenytoin 300 mg 300 mg Q12HR GT 09/18/16 21:00 10/18/16 20:59 09/20/16 08:41 Phenytoin/Sodium Chloride (Dilantin/Sodium Chloride) 120 ml @ 120 mls/hr POSTHD IVPB 09/17/16 21:00 10/17/16 20:59 09/18/16 21:52 Polyethylene Glycol (Miralax) 17 gm DAILYPRN PRN ORAL Constipation 09/06/16 23:00 10/06/16 22:59 Sodium Chloride (Sodium Chloride 1000ml bag) 1,000 ml @ 500 mls/hr Q2H PRN IVLG sbp<90 during hd 09/19/16 12:28 09/20/16 23:59 Valproic Acid (Depakene) 1,000 mg POSTHD GT 09/17/16 18:00 10/17/16 17:59 09/20/16 17:28 Valproic Acid (Depakene) 1,500 mg Q12HR GT 09/17/16 21:00 10/17/16 20:59 09/20/16 08:41 Vancomycin HCl 1 ea 1 ea DAILY PRN MISC Per rx protocol 09/17/16 17:30 10/17/16 17:29 Laboratory Tests Test 09/20/16 04:30 White Blood Count 21.4 K/UL (4.8-10.8) #H Red Blood Count 3.10 M/UL (4.70-6.10) L Hemoglobin 9.8 G/DL (14.2-18.0) L Hematocrit 29.9 % (42.0-52.0) L Mean Corpuscular Volume 96 FL (80-99) Mean Corpuscular Hemoglobin 31.5 PG (27.0-31.0) H Mean Corpuscular Hemoglobin Concent 32.7 G/DL (32.0-36.0) Red Cell Distribution Width 15.5 % (11.6-14.8) H Platelet Count 315 K/UL (150-450) Mean Platelet Volume 6.7 FL (6.5-10.1) Neutrophils (%) (Auto) % (45.0-75.0) Lymphocytes (%) (Auto) % (20.0-45.0) Monocytes (%) (Auto) % (1.0-10.0) Eosinophils (%) (Auto) % (0.0-3.0) Basophils (%) (Auto) % (0.0-2.0) Differential Total Cells Counted 100 Neutrophils % (Manual) 63 % (45-75) Lymphocytes % (Manual) 26 % (20-45) Monocytes % (Manual) 8 % (1-10) Eosinophils % (Manual) 3 % (0-3) Basophils % (Manual) 0 % (0-2) Band Neutrophils 0 % (0-8) Platelet Estimate Adequate Platelet Morphology Normal Red Blood Cell Morphology Normal Sodium Level 144 mEQ/L (135-145) Potassium Level 3.7 mEQ/L (3.4-4.9) Chloride Level 92 mEQ/L (98-107) L Carbon Dioxide Level 29 mEQ/L (20-30) Anion Gap 23 (5-15) H Blood Urea Nitrogen 69 mg/dL (7-23) H Creatinine 6.8 mg/dL (0.7-1.2) H Estimat Glomerular Filtration Rate 8.1 mL/min (>60) Glucose Level 257 mg/dL (74-106) H Calcium Level 10.4 mg/dL (8.6-10.2) H Phosphorus Level 5.0 mg/dL (2.5-4.8) H KOLTON RENTERIA DO Sep 20, 2016 18:45
[2016-09-20] MEDS: Phenytoin 500 MG in NS 110 ML IVPB SCH (19:30)
--- NOTE | 2016-09-20 20:33 | Cardiology Progress Note ---
Assessment/Plan Problem List: (1) Pneumonia (2) Enterobacter sepsis (3) CHF (congestive heart failure) (4) ESRD (end stage renal disease) (5) Anoxic encephalopathy syndrome Status: stable, unchanged Status Narrative Pt is s/p resuscitated cardiac arrest/ asystole Remains encephalopathic, on vent Assessment/Plan Continue supportive care, iv antibiotics, vent support, hemodialysis Overall prognosis appears poor Subjective ROS Limited/Unobtainable: Yes Subjective Intubated, on vent. Not responsive/ no purposeful movements. Objective Last 24 Hour Vital Signs Date Time Temp Pulse Resp B/P Pulse Ox O2 Delivery O2 Flow Rate FiO2 09/20/16 19:36 81 21 100 Mechanical Ventilator 30 09/20/16 19:26 30 09/20/16 19:26 99 19 100 Mechanical Ventilator 30 09/20/16 19:24 98 23 30 09/20/16 19:00 99 20 95/42 99 Mechanical Ventilator 30 09/20/16 18:00 85 20 90/37 96 Mechanical Ventilator 30 09/20/16 17:26 103/40 09/20/16 17:12 88 22 30 09/20/16 17:00 85 20 62/42 97 Mechanical Ventilator 30 09/20/16 16:40 Mechanical Ventilator 4.0 30 09/20/16 16:00 88 09/20/16 16:00 99.2 85 20 103/40 100 Mechanical Ventilator 30 09/20/16 16:00 30 09/20/16 15:22 94 24 100 Mechanical Ventilator 30 09/20/16 15:17 88 16 100 Mechanical Ventilator 30 09/20/16 15:17 30 09/20/16 15:00 92 27 30 09/20/16 15:00 85 20 124/61 100 Mechanical Ventilator 30 09/20/16 14:00 88 23 105/50 100 Mechanical Ventilator 30 09/20/16 13:50 Mechanical Ventilator 4.0 30 09/20/16 13:00 87 23 102/42 100 Mechanical Ventilator 30 09/20/16 12:47 90 28 30 09/20/16 12:00 84 09/20/16 12:00 30 09/20/16 12:00 98.5 84 23 98/42 100 Mechanical Ventilator 30 09/20/16 11:35 85 16 100 Mechanical Ventilator 30 09/20/16 11:28 30 09/20/16 11:28 96 14 99 Mechanical Ventilator 30 09/20/16 11:00 82 23 112/38 100 Mechanical Ventilator 30 09/20/16 11:00 86 18 30 09/20/16 10:00 93 23 110/42 100 Mechanical Ventilator 30 09/20/16 09:00 84 17 30 09/20/16 09:00 93 23 94/34 100 Mechanical Ventilator 30 09/20/16 08:43 86 100/34 09/20/16 08:42 100/34 09/20/16 08:00 88 09/20/16 08:00 98.5 93 22 98/40 100 Mechanical Ventilator 30 09/20/16 08:00 30 09/20/16 07:09 91 22 100 Mechanical Ventilator 30 09/20/16 07:09 94 29 30 09/20/16 07:02 30 09/20/16 07:02 94 21 99 Mechanical Ventilator 30 09/20/16 07:00 93 23 124/43 100 Mechanical Ventilator 30 09/20/16 06:00 83 20 103/40 97 Mechanical Ventilator 30 09/20/16 05:19 89 15 30 09/20/16 05:00 87 20 103/40 95 Mechanical Ventilator 30 09/20/16 04:00 93 09/20/16 04:00 30 09/20/16 04:00 99.0 92 24 92/40 99 Mechanical Ventilator 30 09/20/16 03:20 90 16 100 Mechanical Ventilator 30 09/20/16 03:20 30 09/20/16 03:13 85 16 100 Mechanical Ventilator 30 09/20/16 03:12 85 15 30 09/20/16 03:00 86 20 92/40 100 Mechanical Ventilator 30 09/20/16 02:00 90 20 98/33 99 Mechanical Ventilator 30 09/20/16 01:12 91 22 30 09/20/16 01:00 92 23 98/33 99 Mechanical Ventilator 30 09/20/16 00:00 93 09/20/16 00:00 30 09/20/16 00:00 98.2 92 20 109/38 100 Mechanical Ventilator 30 09/19/16 23:30 90 19 100 Mechanical Ventilator 30 09/19/16 23:30 30 09/19/16 23:08 90 25 100 Mechanical Ventilator 30 09/19/16 23:07 90 21 30 09/19/16 23:00 91 23 109/38 100 Mechanical Ventilator 30 09/19/16 22:00 94 23 128/38 100 Mechanical Ventilator 30 09/19/16 21:00 99.2 93 20 128/38 99 Mechanical Ventilator 30 09/19/16 20:44 90 12 30 General Appearance: WD/WN, lethargic, on vent EENT: PERRL/EOMI Neck: supple, no JVD, other - tunnelled R IJ HD catheter Rhythm: NSR Cardiovascular: normal rate, regular rhythm, no gallop/murmur Respiratory/Chest: other - fairly clear anteriorly Abdomen: non tender, soft, other - reducible umbilical hernia Extremities: no swelling Intake and Output 09/19/16 09/20/16 19:00 07:00 Intake Total 915 ml 595 ml Balance 915 ml 595 ml IV Total 275 ml 55 ml Tube Feeding 540 ml 480 ml Other 100 ml 60 ml # Voids 1 # Bowel Movements 4 2 Laboratory Tests Test 09/20/16 04:30 White Blood Count 21.4 K/UL (4.8-10.8) #H Red Blood Count 3.10 M/UL (4.70-6.10) L Hemoglobin 9.8 G/DL (14.2-18.0) L Hematocrit 29.9 % (42.0-52.0) L Mean Corpuscular Volume 96 FL (80-99) Mean Corpuscular Hemoglobin 31.5 PG (27.0-31.0) H Mean Corpuscular Hemoglobin Concent 32.7 G/DL (32.0-36.0) Red Cell Distribution Width 15.5 % (11.6-14.8) H Platelet Count 315 K/UL (150-450) Mean Platelet Volume 6.7 FL (6.5-10.1) Neutrophils (%) (Auto) % (45.0-75.0) Lymphocytes (%) (Auto) % (20.0-45.0) Monocytes (%) (Auto) % (1.0-10.0) Eosinophils (%) (Auto) % (0.0-3.0) Basophils (%) (Auto) % (0.0-2.0) Differential Total Cells Counted 100 Neutrophils % (Manual) 63 % (45-75) Lymphocytes % (Manual) 26 % (20-45) Monocytes % (Manual) 8 % (1-10) Eosinophils % (Manual) 3 % (0-3) Basophils % (Manual) 0 % (0-2) Band Neutrophils 0 % (0-8) Platelet Estimate Adequate Platelet Morphology Normal Red Blood Cell Morphology Normal Sodium Level 144 mEQ/L (135-145) Potassium Level 3.7 mEQ/L (3.4-4.9) Chloride Level 92 mEQ/L (98-107) L Carbon Dioxide Level 29 mEQ/L (20-30) Anion Gap 23 (5-15) H Blood Urea Nitrogen 69 mg/dL (7-23) H Creatinine 6.8 mg/dL (0.7-1.2) H Estimat Glomerular Filtration Rate 8.1 mL/min (>60) Glucose Level 257 mg/dL (74-106) H Calcium Level 10.4 mg/dL (8.6-10.2) H Phosphorus Level 5.0 mg/dL (2.5-4.8) H Microbiology Date/Time Source Procedure Growth Status 09/18/16 15:30 Blood Blood Culture - Preliminary NO GROWTH AFTER 24 HOURS Resulted 09/18/16 15:15 Blood Blood Culture - Preliminary NO GROWTH AFTER 24 HOURS Resulted ANGEL MARCIAL Sep 20, 2016 20:33
[2016-09-20] MEDS: Cefepime HCl 500 MG in D5W 55 ML IV SCH (21:41)
[2016-09-21] VITALS (25 sets, daily range): BP systolic 84–151; BP diastolic 29–69
[2016-09-21] MEDS: NovoLOG Insulin Flexpen SUBQ SCH ×5 (00:48→23:58)
[2016-09-21] MEDS: DuoNeb 0.5-3(2.5)mg/3ml neb HHN SCH ×3 (03:57→11:05)
[2016-09-21] MEDS: Metoclopramide 10mg/2ml Inj IVP SCH ×4 (05:12→22:26)
[2016-09-21 05:13] LABS: BASOPHILS % (AUTO) 2.4 % (0.0-2.0); EOSINOPHILS % (AUTO) 1.2 % (0.0-3.0); LYMPHOCYTES % (AUTO) 9.1 % (20.0-45.0); MEAN CORPUSCULAR HEMOGLOBIN 30.5 PG (27.0-31.0); MEAN CORPUSCULAR HGB CONC 31.4 G/DL (32.0-36.0); MEAN CORPUSCULAR VOLUME 97 FL (80-99); MEAN PLATELET VOLUME 6.9 FL (6.5-10.1); MONOCYTES % (AUTO) 11.1 % (1.0-10.0); NEUTROPHILS % (AUTO) 76.3 % (45.0-75.0); PLATELET COUNT 286 K/UL (150-450); RED BLOOD COUNT 3.08 M/UL (4.70-6.10); RED CELL DISTRIBUTION WIDTH 15.7 % (11.6-14.8); WHITE BLOOD COUNT 16.5 K/UL (4.8-10.8)
[2016-09-21 05:20] LABS: CALCIUM 10.2 mg/dL (8.6-10.2); CREATININE 5.8 mg/dL (0.7-1.2); GLOMERULAR FILTRATION RATE 9.7 mL/min (>60); POTASSIUM 3.8 mEQ/L (3.4-4.9)
--- NOTE | 2016-09-21 07:19 | Pulmonolgy Critical Care Note ---
Critical Care - Asmt/Plan Assessment/Plan: 1. Status post cardiac arrest. 2. Renal failure with hyperkalemia. 3. Respiratory failure. 4. Anoxic encephalopathy. 5. Status epilepticus 6. Coronary artery disease. 7. History of cardiomyopathy. 8. Diabetes. 9. Hypertension. trach and peg next week no change in vent, wean after trach nebs and suction monitor BP, pressors if MAP less than 65 mmhg wound care TF prognosis guarded DVT prophylaxis HD per renal continue abx cxr thursday greater than 35 minutes of critical care time spent with the patient, reviewing the records, dw nursing and plan for the day Respiratory: adjust tidal volume, CXR, ABG Cardiac: continue to monitor HR/BP Renal: F/U I&O Infectious Disease: check cultures, continue antibiotics Endocrine: monitor blood sugar Disposition: keep in ICU Time Spent (Minutes): 40 Notes Reviewed: hand kiss setter Discussed with: nurses Critical Care - Objective Last 24 Hour Vital Signs Date Time Temp Pulse Resp B/P Pulse Ox O2 Delivery O2 Flow Rate FiO2 09/21/16 06:00 93 20 99/40 99 Mechanical Ventilator 30 09/21/16 05:27 94 21 30 09/21/16 05:00 92 20 84/29 99 Mechanical Ventilator 30 09/21/16 04:00 97.9 94 20 112/42 99 Mechanical Ventilator 30 09/21/16 04:00 90 09/21/16 04:00 30 09/21/16 03:58 93 12 100 Mechanical Ventilator 30 09/21/16 03:57 30 09/21/16 03:57 93 12 100 Mechanical Ventilator 30 09/21/16 03:56 93 12 30 09/21/16 03:00 94 20 139/43 99 Mechanical Ventilator 30 09/21/16 02:00 88 20 126/37 99 Mechanical Ventilator 30 09/21/16 01:44 85 21 30 09/21/16 01:00 88 20 143/40 99 Mechanical Ventilator 30 09/21/16 00:00 93 09/21/16 00:00 30 09/21/16 00:00 98.9 94 20 151/43 99 Mechanical Ventilator 30 09/20/16 23:35 95 21 100 Mechanical Ventilator 30 09/20/16 23:21 30 09/20/16 23:21 92 18 100 Mechanical Ventilator 30 09/20/16 23:20 89 23 30 09/20/16 23:00 99 20 111/36 99 Mechanical Ventilator 30 09/20/16 22:00 99 20 83/33 99 Mechanical Ventilator 30 09/20/16 21:28 98 24 30 09/20/16 21:00 99 20 89/24 99 Mechanical Ventilator 30 17 20:00 30 09/20/16 20:00 80 09/20/16 20:00 98.6 99 20 123/37 99 Mechanical Ventilator 30 09/20/16 19:36 81 21 100 Mechanical Ventilator 30 09/20/16 19:26 30 17 19:26 99 19 100 Mechanical Ventilator 30 09/20/16 19:24 98 23 30 09/20/16 19:00 99 20 95/42 99 Mechanical Ventilator 30 09/20/16 18:00 85 20 90/37 96 Mechanical Ventilator 30 09/20/16 17:26 103/40 09/20/16 17:12 88 22 30 09/20/16 17:00 85 20 62/42 97 Mechanical Ventilator 30 09/20/16 16:40 Mechanical Ventilator 4.0 30 09/20/16 16:00 88 09/20/16 16:00 99.2 85 20 103/40 100 Mechanical Ventilator 30 17 16:00 30 09/20/16 15:22 94 24 100 Mechanical Ventilator 30 09/20/16 15:17 88 16 100 Mechanical Ventilator 30 09/20/16 15:17 30 09/20/16 15:00 92 27 30 09/20/16 15:00 85 20 124/61 100 Mechanical Ventilator 30 09/20/16 14:00 88 23 105/50 100 Mechanical Ventilator 30 09/20/16 13:50 Mechanical Ventilator 4.0 30 09/20/16 13:00 87 23 102/42 100 Mechanical Ventilator 30 09/20/16 12:47 90 28 30 09/20/16 12:00 84 09/20/16 12:00 30 09/20/16 12:00 98.5 84 23 98/42 100 Mechanical Ventilator 30 09/20/16 11:35 85 16 100 Mechanical Ventilator 30 17 11:28 30 09/20/16 11:28 96 14 99 Mechanical Ventilator 30 09/20/16 11:00 82 23 112/38 100 Mechanical Ventilator 30 09/20/16 11:00 86 18 30 09/20/16 10:00 93 23 110/42 100 Mechanical Ventilator 30 09/20/16 09:00 84 17 30 09/20/16 09:00 93 23 94/34 100 Mechanical Ventilator 30 09/20/16 08:43 86 100/34 09/20/16 08:42 100/34 09/20/16 08:00 88 09/20/16 08:00 98.5 93 22 98/40 100 Mechanical Ventilator 30 09/20/16 08:00 30 Status: obtunded Condition: critical Lungs: clear Heart: HR/BP stable Abdomen: soft, non-tender Extremities: edema Decubiti: location Micro: Microbiology Date/Time Source Procedure Growth Status 09/18/16 15:30 Blood Blood Culture - Preliminary NO GROWTH AFTER 48 HOURS Resulted 09/18/16 15:15 Blood Blood Culture - Preliminary NO GROWTH AFTER 48 HOURS Resulted Accucheck: 386 Blood Sugars: BS not controlled Critical Care - Subjective ROS Limited/Unobtainable: Yes Condition: critical EKG Rhythm: Sinus Rhythm FI02: 30 Vent Support Breath Rate: 12 Vent Support Mode: AC Vent Tidal Volume: 500 Sputum Amount: Small PIP: 37 Tube Feeding Amount: 60 I&O: Intake and Output 09/20/16 09/21/16 19:00 07:00 Intake Total 480 ml 700 ml Output Total 1100 ml Balance -620 ml 700 ml Free Water 50 ml IV Total 230 ml Tube Feeding 480 ml 420 ml Hemodialysis UF 1100 ml # Bowel Movements 1 Subjective: no events noted over night obtunded on the vent breathing above the vent bp stable no visible seizure activity tolerating tf no pressors ET-Tube: 8.0 ET Position: 24 DEXTERKOLTON DO Sep 21, 2016 07:19
--- NOTE | 2016-09-21 08:08 | Infectious Diseases Prog Note ---
Assessment/Plan Assessment/Plan A; Sepsis improving pneumonia with Enterobacter COPD s/p cardiac arrest Anoxic encephalopathy ESRD on HD Respiratory failure P; Continue Vancomycin & Cefepime Subjective ROS Limited/Unobtainable: Yes Allergies: Coded Allergies: NIACIN (Verified Allergy, Unknown, ITCHING, 01/30/12) Objective Vital Signs Last 24 Hour Vital Signs Date Time Temp Pulse Resp B/P Pulse Ox O2 Delivery O2 Flow Rate FiO2 09/21/16 07:47 88 16 99 Mechanical Ventilator 4.0 30 09/21/16 07:21 85 27 99 Mechanical Ventilator 30 09/21/16 07:21 30 09/21/16 07:21 85 27 30 09/21/16 07:00 93 20 99/40 99 Mechanical Ventilator 30 09/21/16 06:00 93 20 99/40 99 Mechanical Ventilator 30 09/21/16 05:27 94 21 30 09/21/16 05:00 92 20 84/29 99 Mechanical Ventilator 30 09/21/16 04:00 97.9 94 20 112/42 99 Mechanical Ventilator 30 09/21/16 04:00 90 09/21/16 04:00 30 09/21/16 03:58 93 12 100 Mechanical Ventilator 30 09/21/16 03:57 30 09/21/16 03:57 93 12 100 Mechanical Ventilator 30 09/21/16 03:56 93 12 30 09/21/16 03:00 94 20 139/43 99 Mechanical Ventilator 30 09/21/16 02:00 88 20 126/37 99 Mechanical Ventilator 30 09/21/16 01:44 85 21 30 09/21/16 01:00 88 20 143/40 99 Mechanical Ventilator 30 09/21/16 00:00 93 09/21/16 00:00 30 09/21/16 00:00 98.9 94 20 151/43 99 Mechanical Ventilator 30 09/20/16 23:35 95 21 100 Mechanical Ventilator 30 09/20/16 23:21 30 09/20/16 23:21 92 18 100 Mechanical Ventilator 30 09/20/16 23:20 89 23 30 09/20/16 23:00 99 20 111/36 99 Mechanical Ventilator 30 09/20/16 22:00 99 20 83/33 99 Mechanical Ventilator 30 09/20/16 21:28 98 24 30 09/20/16 21:00 99 20 89/24 99 Mechanical Ventilator 30 09/20/16 20:00 30 09/20/16 20:00 80 09/20/16 20:00 98.6 99 20 123/37 99 Mechanical Ventilator 30 09/20/16 19:36 81 21 100 Mechanical Ventilator 30 17 19:26 30 17 19:26 99 19 100 Mechanical Ventilator 30 09/20/16 19:24 98 23 30 09/20/16 19:00 99 20 95/42 99 Mechanical Ventilator 30 09/20/16 18:00 85 20 90/37 96 Mechanical Ventilator 30 17 17:26 103/40 09/20/16 17:12 88 22 30 09/20/16 17:00 85 20 62/42 97 Mechanical Ventilator 30 09/20/16 16:40 Mechanical Ventilator 4.0 30 09/20/16 16:00 88 09/20/16 16:00 99.2 85 20 103/40 100 Mechanical Ventilator 30 09/20/16 16:00 30 09/20/16 15:22 94 24 100 Mechanical Ventilator 30 09/20/16 15:17 88 16 100 Mechanical Ventilator 30 09/20/16 15:17 30 09/20/16 15:00 92 27 30 09/20/16 15:00 85 20 124/61 100 Mechanical Ventilator 30 09/20/16 14:00 88 23 105/50 100 Mechanical Ventilator 30 09/20/16 13:50 Mechanical Ventilator 4.0 30 09/20/16 13:00 87 23 102/42 100 Mechanical Ventilator 30 09/20/16 12:47 90 28 30 09/20/16 12:00 84 09/20/16 12:00 30 09/20/16 12:00 98.5 84 23 98/42 100 Mechanical Ventilator 30 09/20/16 11:35 85 16 100 Mechanical Ventilator 30 09/20/16 11:28 30 09/20/16 11:28 96 14 99 Mechanical Ventilator 30 09/20/16 11:00 82 23 112/38 100 Mechanical Ventilator 30 09/20/16 11:00 86 18 30 09/20/16 10:00 93 23 110/42 100 Mechanical Ventilator 30 09/20/16 09:00 84 17 30 09/20/16 09:00 93 23 94/34 100 Mechanical Ventilator 30 09/20/16 08:43 86 100/34 09/20/16 08:42 100/34 Height (Feet): 5 Height (Inches): 6.00 Weight (Pounds): 170 HEENT: other - orally intubated Respiratory/Chest: lungs clear, other - on ventilator Cardiovascular: normal rate, other - Hypotensive, R Portacath Abdomen: soft, non tender Extremities: other - edema Neurologic/Psychiatric: unresponsiveness Microbiology Date/Time Source Procedure Growth Status 09/18/16 15:30 Blood Blood Culture - Preliminary NO GROWTH AFTER 48 HOURS Resulted 09/18/16 15:15 Blood Blood Culture - Preliminary NO GROWTH AFTER 48 HOURS Resulted Laboratory Tests Test 09/21/16 03:50 White Blood Count 16.5 K/UL (4.8-10.8) H Red Blood Count 3.08 M/UL (4.70-6.10) L Hemoglobin 9.4 G/DL (14.2-18.0) L Hematocrit 30.0 % (42.0-52.0) L Mean Corpuscular Volume 97 FL (80-99) Mean Corpuscular Hemoglobin 30.5 PG (27.0-31.0) Mean Corpuscular Hemoglobin Concent 31.4 G/DL (32.0-36.0) L Red Cell Distribution Width 15.7 % (11.6-14.8) H Platelet Count 286 K/UL (150-450) Mean Platelet Volume 6.9 FL (6.5-10.1) Neutrophils (%) (Auto) 76.3 % (45.0-75.0) H Lymphocytes (%) (Auto) 9.1 % (20.0-45.0) L Monocytes (%) (Auto) 11.1 % (1.0-10.0) H Eosinophils (%) (Auto) 1.2 % (0.0-3.0) Basophils (%) (Auto) 2.4 % (0.0-2.0) H Sodium Level 141 mEQ/L (135-145) Potassium Level 3.8 mEQ/L (3.4-4.9) Chloride Level 92 mEQ/L (98-107) L Carbon Dioxide Level 29 mEQ/L (20-30) Anion Gap 20 (5-15) H Blood Urea Nitrogen 61 mg/dL (7-23) H Creatinine 5.8 mg/dL (0.7-1.2) H Estimat Glomerular Filtration Rate 9.7 mL/min (>60) Glucose Level 377 mg/dL (74-106) #H Calcium Level 10.2 mg/dL (8.6-10.2) Current Medications Medications (Trade) Dose Ordered Sig/Mark Route PRN Reason Start Time Stop Time Status Last Admin Dose Admin Acetaminophen (Tylenol) 650 mg Q4H PRN ORAL Mild Pain (Pain Scale 1-3) 09/06/16 23:00 10/06/16 22:59 09/19/16 18:21 Albuterol/ Ipratropium (DuoNeb 0.5-3(2.5)mg/3ml) 3 ml Q4HRT HHN 09/16/16 11:00 09/21/16 10:59 09/21/16 07:21 Amlodipine Besylate (Norvasc) 10 mg DAILY GT 09/15/16 10:56 10/07/16 08:59 09/19/16 08:07 Cefepime HCl 500 mg/Dextrose 55 ml @ 110 mls/hr Q24H IV 09/18/16 20:00 09/25/16 19:59 09/20/16 21:41 Chlorhexidine Gluconate (Lakshmi-Hex 2%) 1 applic DAILY TOPIC 09/10/16 03:30 10/10/16 03:29 09/20/16 08:44 Dextrose (Dextrose 50%) STAT PRN IV Hypoglycemia 09/06/16 23:00 10/06/16 22:59 Heparin Sodium (Porcine) (Heparin 5000 units/ml) 5,000 units EVERY 12 HOURS SUBQ 09/08/16 21:00 10/08/16 20:59 09/20/16 22:06 Insulin Aspart (NovoLOG) EVERY 6 HOURS SUBQ 09/07/16 18:00 10/07/16 17:59 09/21/16 05:21 Lorazepam (Ativan 2mg/ml 1ml) 1 mg Q1HR PRN IV For Seizure Activity 09/15/16 22:45 09/22/16 22:44 Metoclopramide HCl (Reglan) 5 mg Q6H IVP 09/15/16 22:30 10/15/16 22:29 09/21/16 05:12 Minoxidil (Loniten) 15 mg BID GT 09/15/16 10:57 10/13/16 17:59 09/20/16 17:26 Pantoprazole (Protonix) 40 mg EVERY 12 HOURS IVP 09/15/16 22:30 10/15/16 22:29 09/20/16 21:58 Phenytoin (Dilantin) 300 mg Q12HR GT 09/18/16 21:00 10/18/16 20:59 09/20/16 21:54 Phenytoin/Sodium Chloride (Dilantin/Sodium Chloride) 120 ml @ 120 mls/hr POSTHD IVPB 09/17/16 21:00 10/17/16 20:59 09/20/16 19:30 Polyethylene Glycol (Miralax) 17 gm DAILYPRN PRN ORAL Constipation 09/06/16 23:00 10/06/16 22:59 Valproic Acid (Depakene) 1,000 mg POSTHD GT 09/17/16 18:00 10/17/16 17:59 09/20/16 17:28 Valproic Acid (Depakene) 1,500 mg Q12HR GT 09/17/16 21:00 10/17/16 20:59 09/20/16 21:48 Vancomycin HCl 1 ea 1 ea DAILY PRN MISC Per rx protocol 09/17/16 17:30 10/17/16 17:29 ROZINA BREAUX Sep 21, 2016 08:08
[2016-09-21] MEDS: Minoxidil 10mg tab GT SCH ×2 (09:00→18:00)
[2016-09-21 09:12] LABS: ABG ALLEN TEST POSITIVE; ABG BASE EXCESS 5.4; ABG PCO2 47.7 mmHg (35.0-45.0)
[2016-09-21] MEDS: Phenytoin Susp 100mg/4ml GT SCH ×2 (09:29→20:39)
[2016-09-21] MEDS: Valproic Acid 250mg/5ml Liquid GT SCH ×2 (09:29→20:39)
[2016-09-21] MEDS: Pantoprazole Inj IVP SCH ×2 (09:32→20:39)
[2016-09-21] MEDS: Dyna-Hex 2% Top Sol 8oz TOPIC SCH (09:32)
[2016-09-21] MEDS: Heparin 5000 units/ml inj SUBQ SCH ×2 (09:34→20:42)
--- NOTE | 2016-09-21 10:38 | Diagnostic Imaging Report ---
Indication: Shortness of breath Technique: XRAY CHEST 1 V Comparison: 09/15/16 Findings: Right internal jugular permacath, endotracheal and nasogastric tubes are unchanged. The cardiomediastinal silhouette is stable. There is slightly increased central pulmonary vascular congestion and mild interstitial edema. Osseous structures are stable. Impression: Slightly increased central pulmonary vascular congestion and mild interstitial edema.
--- NOTE | 2016-09-21 11:26 | Diagnostic Imaging Report ---
Indication: Abdominal distention Technique: Supine views of the abdomen Comparison: None Findings: Nasogastric tube is within the stomach. Bowel gas pattern is nonobstructive and nonspecific. There is no gross free intraperitoneal air. Impression: Nonobstructive and nonspecific bowel gas pattern. Nasogastric tube within the stomach.
--- NOTE | 2016-09-21 11:30 | General Progress Note ---
Assessment/Plan Assessment/Plan Assessment - TF intolerance , N/V - still an issue - presumed DM gastroparesis - already on Reglan - will add bethanecol - encephalopathy - resp failure - renal failure - Anemia Recommendations - BID IV PPI - ATC IV reglan - add bethanecol for more motility support - TF. - Monitor residuals Subjective Allergies: Coded Allergies: NIACIN (Verified Allergy, Unknown, ITCHING, 01/30/12) Subjective Above noted seen in ICU d/w RN had an episode of emesis today TF held Objective Last 24 Hour Vital Signs Date Time Temp Pulse Resp B/P Pulse Ox O2 Delivery O2 Flow Rate FiO2 09/21/16 11:03 85 20 98 Mechanical Ventilator 30 09/21/16 11:03 30 09/21/16 11:02 85 20 30 09/21/16 09:00 84 26 91/31 99 Mechanical Ventilator 30 09/21/16 09:00 91/30 09/21/16 09:00 83 /09/21/16 08:40 82 17 30 09/21/16 08:00 100.2 86 27 95/35 99 Mechanical Ventilator 30 09/21/16 08:00 30 09/21/16 08:00 89 09/21/16 07:47 88 16 99 Mechanical Ventilator 4.0 30 09/21/16 07:21 85 27 99 Mechanical Ventilator 30 09/21/16 07:21 30 09/21/16 07:21 85 27 30 09/21/16 07:00 93 20 99/40 99 Mechanical Ventilator 30 09/21/16 06:00 93 20 99/40 99 Mechanical Ventilator 30 09/21/16 05:27 94 21 30 09/21/16 05:00 92 20 84/29 99 Mechanical Ventilator 30 09/21/16 04:00 97.9 94 20 112/42 99 Mechanical Ventilator 30 09/21/16 04:00 90 09/21/16 04:00 30 09/21/16 03:58 93 12 100 Mechanical Ventilator 30 09/21/16 03:57 30 09/21/16 03:57 93 12 100 Mechanical Ventilator 30 09/21/16 03:56 93 12 30 09/21/16 03:00 94 20 139/43 99 Mechanical Ventilator 30 09/21/16 02:00 88 20 126/37 99 Mechanical Ventilator 30 09/21/16 01:44 85 21 30 6/18/17 01:00 88 20 143/40 99 Mechanical Ventilator 30 18/17 00:00 93 18/17 00:00 30 1817 00:00 98.9 94 20 151/43 99 Mechanical Ventilator 30 09/20/17 23:35 95 21 100 Mechanical Ventilator 30 17 23:21 30 09/20/17 23:21 92 18 100 Mechanical Ventilator 30 17 23:20 89 23 30 17 23:00 99 20 111/36 99 Mechanical Ventilator 30 17 22:00 99 20 83/33 99 Mechanical Ventilator 30 09/20/16 21:28 98 24 30 09/20/16 21:00 99 20 89/24 99 Mechanical Ventilator 30 17 20:00 30 09/20/16 20:00 80 09/20/16 20:00 98.6 99 20 123/37 99 Mechanical Ventilator 30 09/20/16 19:36 81 21 100 Mechanical Ventilator 30 09/20/16 19:26 30 17 19:26 99 19 100 Mechanical Ventilator 30 17 19:24 98 23 30 17 19:00 99 20 95/42 99 Mechanical Ventilator 30 09/20/17 18:00 85 20 90/37 96 Mechanical Ventilator 30 09/20/17 17:26 103/40 09/20/17 17:12 88 22 30 09/20/17 17:00 85 20 62/42 97 Mechanical Ventilator 30 09/20/17 16:40 Mechanical Ventilator 4.0 30 09/20/17 16:00 88 17 16:00 99.2 85 20 103/40 100 Mechanical Ventilator 30 17/17 16:00 30 09/20/17 15:22 94 24 100 Mechanical Ventilator 30 17/17 15:17 88 16 100 Mechanical Ventilator 30 17/17 15:17 30 17/17 15:00 92 27 30 17/17 15:00 85 20 124/61 100 Mechanical Ventilator 30 17/17 14:00 88 23 105/50 100 Mechanical Ventilator 30 17/17 13:50 Mechanical Ventilator 4.0 30 17/17 13:00 87 23 102/42 100 Mechanical Ventilator 30 17/17 12:47 90 28 30 09/20/16 12:00 84 09/20/16 12:00 30 09/20/16 12:00 98.5 84 23 98/42 100 Mechanical Ventilator 30 09/20/16 11:35 85 16 100 Mechanical Ventilator 30 09/20/16 11:28 30 09/20/16 11:28 96 14 99 Mechanical Ventilator 30 Intake and Output 09/20/16 09/21/16 19:00 07:00 Intake Total 480 ml 810 ml Output Total 1100 ml Balance -620 ml 810 ml Free Water 100 ml IV Total 230 ml Tube Feeding 480 ml 480 ml Hemodialysis UF 1100 ml # Bowel Movements 1 Laboratory Tests 09/21/16 03:50: White Blood Count 16.5H, Red Blood Count 3.08L, Hemoglobin 9.4L, Hematocrit 30.0L, Mean Corpuscular Volume 97, Mean Corpuscular Hemoglobin 30.5, Mean Corpuscular Hemoglobin Concent 31.4L, Red Cell Distribution Width 15.7H, Platelet Count 286, Mean Platelet Volume 6.9, Neutrophils (%) (Auto) 76.3H, Lymphocytes (%) (Auto) 9.1L, Monocytes (%) (Auto) 11.1H, Eosinophils (%) (Auto) 1.2, Basophils (%) (Auto) 2.4H, Sodium Level 141, Potassium Level 3.8, Chloride Level 92L, Carbon Dioxide Level 29, Anion Gap 20H, Blood Urea Nitrogen 61H, Creatinine 5.8H, Estimat Glomerular Filtration Rate 9.7, Glucose Level 377#H, Calcium Level 10.2 09/21/16 09:05: Arterial Blood pH 7.424, Arterial Blood Partial Pressure CO2 47.7H, Arterial Blood Partial Pressure O2 94.3, Arterial Blood HCO3 30.5H, Arterial Blood Oxygen Saturation 95.8, Arterial Blood Base Excess 5.4, Chas Test Positive Height (Feet): 5 Height (Inches): 6.00 Weight (Pounds): 170 Objective Intubated and unresponsive NCAT, (+) feeding tube and ETT supple Coarse BS and occ wheeze RR soft ND abdomen no edema ANNE CURRAN Sep 21, 2016 11:30
[2016-09-21] MEDS: Bethanechol 10mg Tab ORAL SCH ×2 (12:42→17:39)
--- NOTE | 2016-09-21 12:42 | Nephrology Progress Note ---
Assessment/Plan Problem List: (1) ESRD (end stage renal disease) (2) Anoxic encephalopathy syndrome (3) Respiratory failure with hypoxia (4) CHF (congestive heart failure) (5) HTN (hypertension) Assessment R arm edema Plan HD on Thursday Vent support Discussed with Dr Arias follow labs TF PEG and Trach Subjective Subjective remains intubated no improvement in MS Objective Objective Last 24 Hour Vital Signs Date Time Temp Pulse Resp B/P Pulse Ox O2 Delivery O2 Flow Rate FiO2 09/21/16 11:03 85 20 98 Mechanical Ventilator 30 09/21/16 11:03 30 09/21/16 11:02 85 20 30 09/21/16 09:00 84 26 /31 99 Mechanical Ventilator 30 09/21/16 09:00 91/09/21/16 09:00 83 /09/21/16 08:40 82 17 30 09/21/16 08:00 100.2 86 27 95/35 99 Mechanical Ventilator 30 09/21/16 08:00 30 09/21/16 08:00 89 09/21/16 07:47 88 16 99 Mechanical Ventilator 4.0 30 09/21/16 07:21 85 27 99 Mechanical Ventilator 30 09/21/16 07:21 30 09/21/16 07:21 85 27 30 09/21/16 07:00 93 20 99/40 99 Mechanical Ventilator 30 09/21/16 06:00 93 20 99/40 99 Mechanical Ventilator 30 09/21/16 05:27 94 21 30 09/21/16 05:00 92 20 84/29 99 Mechanical Ventilator 30 09/21/16 04:00 97.9 94 20 112/42 99 Mechanical Ventilator 30 09/21/16 04:00 90 09/21/16 04:00 30 09/21/16 03:58 93 12 100 Mechanical Ventilator 30 09/21/16 03:57 30 09/21/16 03:57 93 12 100 Mechanical Ventilator 30 09/21/16 03:56 93 12 30 09/21/16 03:00 94 20 139/43 99 Mechanical Ventilator 30 09/21/16 02:00 88 20 126/37 99 Mechanical Ventilator 30 09/21/16 01:44 85 21 30 09/21/16 01:00 88 20 143/40 99 Mechanical Ventilator 30 09/21/16 00:00 93 6/18/17 00:00 30 09/21/16 00:00 98.9 94 20 151/43 99 Mechanical Ventilator 30 09/20/16 23:35 95 21 100 Mechanical Ventilator 30 09/20/16 23:21 30 09/20/16 23:21 92 18 100 Mechanical Ventilator 30 09/20/16 23:20 89 23 30 09/20/16 23:00 99 20 111/36 99 Mechanical Ventilator 30 09/20/16 22:00 99 20 83/33 99 Mechanical Ventilator 30 09/20/16 21:28 98 24 30 09/20/16 21:00 99 20 89/24 99 Mechanical Ventilator 30 09/20/16 20:00 30 09/20/16 20:00 80 09/20/16 20:00 98.6 99 20 123/37 99 Mechanical Ventilator 30 09/20/16 19:36 81 21 100 Mechanical Ventilator 30 09/20/16 19:26 30 09/20/16 19:26 99 19 100 Mechanical Ventilator 30 09/20/16 19:24 98 23 30 09/20/16 19:00 99 20 95/42 99 Mechanical Ventilator 30 09/20/16 18:00 85 20 90/37 96 Mechanical Ventilator 30 09/20/16 17:26 103/40 09/20/16 17:12 88 22 30 09/20/16 17:00 85 20 62/42 97 Mechanical Ventilator 30 09/20/16 16:40 Mechanical Ventilator 4.0 30 09/20/16 16:00 88 09/20/16 16:00 99.2 85 20 103/40 100 Mechanical Ventilator 30 09/20/16 16:00 30 09/20/16 15:22 94 24 100 Mechanical Ventilator 30 09/20/16 15:17 88 16 100 Mechanical Ventilator 30 09/20/16 15:17 30 09/20/16 15:00 92 27 30 09/20/16 15:00 85 20 124/61 100 Mechanical Ventilator 30 09/20/16 14:00 88 23 105/50 100 Mechanical Ventilator 30 09/20/16 13:50 Mechanical Ventilator 4.0 30 09/20/16 13:00 87 23 102/42 100 Mechanical Ventilator 30 09/20/16 12:47 90 28 30 Intake and Output 17 09/21/16 19:00 07:00 Intake Total 480 ml 810 ml Output Total 1100 ml Balance -620 ml 810 ml Free Water 100 ml IV Total 230 ml Tube Feeding 480 ml 480 ml Hemodialysis UF 1100 ml # Bowel Movements 1 Laboratory Tests 09/21/16 03:50: White Blood Count 16.5H, Red Blood Count 3.08L, Hemoglobin 9.4L, Hematocrit 30.0L, Mean Corpuscular Volume 97, Mean Corpuscular Hemoglobin 30.5, Mean Corpuscular Hemoglobin Concent 31.4L, Red Cell Distribution Width 15.7H, Platelet Count 286, Mean Platelet Volume 6.9, Neutrophils (%) (Auto) 76.3H, Lymphocytes (%) (Auto) 9.1L, Monocytes (%) (Auto) 11.1H, Eosinophils (%) (Auto) 1.2, Basophils (%) (Auto) 2.4H, Sodium Level 141, Potassium Level 3.8, Chloride Level 92L, Carbon Dioxide Level 29, Anion Gap 20H, Blood Urea Nitrogen 61H, Creatinine 5.8H, Estimat Glomerular Filtration Rate 9.7, Glucose Level 377#H, Calcium Level 10.2 09/21/16 09:05: Arterial Blood pH 7.424, Arterial Blood Partial Pressure CO2 47.7H, Arterial Blood Partial Pressure O2 94.3, Arterial Blood HCO3 30.5H, Arterial Blood Oxygen Saturation 95.8, Arterial Blood Base Excess 5.4, Chas Test Positive Height (Feet): 5 Height (Inches): 6.00 Weight (Pounds): 170 Cardiovascular: normal rate Respiratory/Chest: lungs clear Extremities: other - no edema CANDICE BREAUX Sep 21, 2016 12:42
--- NOTE | 2016-09-21 16:18 | Internal Med Progress Note ---
Subjective Date of Service: Sep 21, 2016 Physician Name Filiberto Clancy Attending Physician Harrison Delatorre Current Medications Medications (Trade) Dose Ordered Sig/Mark Route PRN Reason Start Time Stop Time Status Last Admin Dose Admin Acetaminophen (Tylenol) 650 mg Q4H PRN ORAL Mild Pain (Pain Scale 1-3) 09/06/16 23:00 10/06/16 22:59 09/19/16 18:21 Amlodipine Besylate (Norvasc) 10 mg DAILY GT 09/15/16 10:56 10/07/16 08:59 09/19/16 08:07 Bethanechol Chloride (Urecholine) 10 mg THREE TIMES A DAY ORAL 09/21/16 13:00 10/21/16 12:59 09/21/16 12:42 Cefepime HCl 500 mg/Dextrose 55 ml @ 110 mls/hr Q24H IV 09/18/16 20:00 09/25/16 19:59 09/20/16 21:41 Chlorhexidine Gluconate (Lakshmi-Hex 2%) 1 applic DAILY TOPIC 09/10/16 03:30 10/10/16 03:29 09/21/16 09:32 Dextrose (Dextrose 50%) STAT PRN IV Hypoglycemia 09/06/16 23:00 10/06/16 22:59 Heparin Sodium (Porcine) (Heparin 5000 units/ml) 5,000 units EVERY 12 HOURS SUBQ 09/08/16 21:00 10/08/16 20:59 09/21/16 09:34 Insulin Aspart (NovoLOG) EVERY 6 HOURS SUBQ 09/07/16 18:00 10/07/16 17:59 09/21/16 12:31 Lorazepam (Ativan 2mg/ml 1ml) 1 mg Q1HR PRN IV For Seizure Activity 09/15/16 22:45 09/22/16 22:44 Metoclopramide HCl (Reglan) 5 mg Q6H IVP 09/15/16 22:30 10/15/16 22:29 09/21/16 12:27 Minoxidil (Loniten) 15 mg BID GT 09/15/16 10:57 10/13/16 17:59 09/20/16 17:26 Pantoprazole (Protonix) 40 mg EVERY 12 HOURS IVP 09/15/16 22:30 10/15/16 22:29 09/21/16 09:32 Phenytoin (Dilantin) 300 mg Q12HR GT 09/18/16 21:00 10/18/16 20:59 09/21/16 09:29 Phenytoin/Sodium Chloride (Dilantin/Sodium Chloride) 120 ml @ 120 mls/hr POSTHD IVPB 09/17/16 21:00 10/17/16 20:59 09/20/16 19:30 Polyethylene Glycol (Miralax) 17 gm DAILYPRN PRN ORAL Constipation 09/06/16 23:00 10/06/16 22:59 Valproic Acid (Depakene) 1,000 mg POSTHD GT 09/17/16 18:00 10/17/16 17:59 09/20/16 17:28 Valproic Acid (Depakene) 1,500 mg Q12HR GT 09/17/16 21:00 10/17/16 20:59 09/21/16 09:29 Vancomycin HCl 1 ea 1 ea DAILY PRN MISC Per rx protocol 09/17/16 17:30 10/17/16 17:29 Allergies: Coded Allergies: NIACIN (Verified Allergy, Unknown, ITCHING, 01/30/12) ROS Limited/Unobtainable: Yes Subjective 71 YO M admitted with volume overload and respiratory failure. S/P cardiopulmonary arrest. ICU. Intubated and sedated. Cover for Int Med-Dr Vail. Family agrees to PEG and tracheostomy Objective Last Vital Signs Date Time Temp Pulse Resp B/P Pulse Ox O2 Delivery O2 Flow Rate FiO2 09/21/16 15:10 87 29 30 09/21/16 15:00 98/36 100 Mechanical Ventilator 09/21/16 12:00 99.2 09/21/16 11:18 4.0 Laboratory Tests Test 09/21/16 03:50 09/21/16 09:05 White Blood Count 16.5 K/UL (4.8-10.8) H Red Blood Count 3.08 M/UL (4.70-6.10) L Hemoglobin 9.4 G/DL (14.2-18.0) L Hematocrit 30.0 % (42.0-52.0) L Mean Corpuscular Volume 97 FL (80-99) Mean Corpuscular Hemoglobin 30.5 PG (27.0-31.0) Mean Corpuscular Hemoglobin Concent 31.4 G/DL (32.0-36.0) L Red Cell Distribution Width 15.7 % (11.6-14.8) H Platelet Count 286 K/UL (150-450) Mean Platelet Volume 6.9 FL (6.5-10.1) Neutrophils (%) (Auto) 76.3 % (45.0-75.0) H Lymphocytes (%) (Auto) 9.1 % (20.0-45.0) L Monocytes (%) (Auto) 11.1 % (1.0-10.0) H Eosinophils (%) (Auto) 1.2 % (0.0-3.0) Basophils (%) (Auto) 2.4 % (0.0-2.0) H Sodium Level 141 mEQ/L (135-145) Potassium Level 3.8 mEQ/L (3.4-4.9) Chloride Level 92 mEQ/L (98-107) L Carbon Dioxide Level 29 mEQ/L (20-30) Anion Gap 20 (5-15) H Blood Urea Nitrogen 61 mg/dL (7-23) H Creatinine 5.8 mg/dL (0.7-1.2) H Estimat Glomerular Filtration Rate 9.7 mL/min (>60) Glucose Level 377 mg/dL (74-106) #H Calcium Level 10.2 mg/dL (8.6-10.2) Arterial Blood pH 7.424 (7.350-7.450) Arterial Blood Partial Pressure CO2 47.7 mmHg (35.0-45.0) H Arterial Blood Partial Pressure O2 94.3 mmHg (75.0-100.0) Arterial Blood HCO3 30.5 mmol/L (22.0-26.0) H Arterial Blood Oxygen Saturation 95.8 % (92.0-98.0) Arterial Blood Base Excess 5.4 Chas Test Positive Intake and Output 09/20/16 09/21/16 19:00 07:00 Intake Total 480 ml 810 ml Output Total 1100 ml Balance -620 ml 810 ml Free Water 100 ml IV Total 230 ml Tube Feeding 480 ml 480 ml Hemodialysis UF 1100 ml # Bowel Movements 1 Objective General Appearance: WD/WN, lethargic EENT: PERRL/EOMI, normal ENT inspection, TMs normal Neck: non-tender, normal alignment, supple Cardiovascular: normal peripheral pulses, normal rate, regular rhythm, no gallop/murmur, no JVD Respiratory/Chest: Mech vent; chest wall non-tender, crackles/rales, rhonchi - bilaterally, expiratory wheezing Abdomen: normal bowel sounds, non tender, soft, no organomegaly Skin: normal pigmentation, warm/dry Assessment/Plan Problem List: (1) HTN (hypertension) Assessment & Plan: Cont amlodipine. (2) Hyperkalemia (3) Respiratory failure with hypoxia Assessment & Plan: Intubated and sedated. (4) ESRD (end stage renal disease) Assessment & Plan: See nephrology note. Last Hemodialysis 09/20/16 per nephrology (5) CHF (congestive heart failure) (6) Diabetes mellitus Assessment & Plan: Cont novolog sliding scale. 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 (9) Anoxic encephalopathy syndrome Assessment & Plan: See neruo note. (10) Enterobacter sepsis (11) Pneumonia Assessment & Plan: Enterobacter. cont cefepime per ID Assessment/Plan Await tracheostomy and PEG FILIBERTO CLANCY Sep 21, 2016 16:18
--- NOTE | 2016-09-21 18:35 | Cardiology Progress Note ---
Assessment/Plan Problem List: (1) Pneumonia (2) Enterobacter sepsis (3) CHF (congestive heart failure) (4) ESRD (end stage renal disease) (5) Anoxic encephalopathy syndrome Status: stable, unchanged Status Narrative Pt is s/p resuscitated cardiac arrest/ asystole Remains encephalopathic, on vent End stage renal disease, on chronic HD Assessment/Plan Continue supportive care, iv antibiotics, vent support, hemodialysis Plan for trach, PEG noted Subjective ROS Limited/Unobtainable: Yes Subjective Intubated, unresponsive, on vent. Objective Last 24 Hour Vital Signs Date Time Temp Pulse Resp B/P Pulse Ox O2 Delivery O2 Flow Rate FiO2 09/21/16 18:16 84 19 98/42 100 Mechanical Ventilator 30 09/21/16 18:00 98/42 09/21/16 18:00 86 22 121/69 100 Mechanical Ventilator 30 09/21/16 17:00 98.6 85 25 115/38 100 Mechanical Ventilator 30 09/21/16 16:00 30 09/21/16 16:00 86 09/21/16 16:00 88 22 110/42 100 Mechanical Ventilator 30 09/21/16 15:10 87 29 30 09/21/16 15:00 86 28 98/36 100 Mechanical Ventilator 30 09/21/16 15:00 87 20 98/36 100 Mechanical Ventilator 30 09/21/16 14:00 84 20 130/42 100 Mechanical Ventilator 30 09/21/16 14:00 86 28 117/41 100 Mechanical Ventilator 30 09/21/16 13:26 81 14 30 09/21/16 13:00 86 28 117/41 100 Mechanical Ventilator 30 09/21/16 12:00 84 09/21/16 12:00 99.2 84 20 90/31 99 Mechanical Ventilator 30 09/21/16 12:00 30 09/21/16 11:18 85 20 98 Mechanical Ventilator 4.0 30 09/21/16 11:03 85 20 98 Mechanical Ventilator 30 09/21/16 11:03 30 09/21/16 11:02 85 20 30 09/21/16 11:00 85 19 88/30 99 Mechanical Ventilator 30 09/21/16 10:00 86 19 95/32 99 Mechanical Ventilator 30 09/21/16 09:00 84 26 91/31 99 Mechanical Ventilator 30 09/21/16 09:00 91/30 09/21/16 09:00 83 91/31 6/18/17 08:40 82 17 30 6/18/17 08:00 100.2 86 27 95/35 99 Mechanical Ventilator 30 6/18/17 08:00 30 618/17 08:00 89 6/18/17 07:47 88 16 99 Mechanical Ventilator 4.0 30 6/18/17 07:21 85 27 99 Mechanical Ventilator 30 6/18/17 07:21 30 618/17 07:21 85 27 30 618/17 07:00 93 20 99/40 99 Mechanical Ventilator 30 6/18/17 06:00 93 20 99/40 99 Mechanical Ventilator 30 6/18/17 05:27 94 21 30 618/17 05:00 92 20 84/29 99 Mechanical Ventilator 30 618/17 04:00 97.9 94 20 112/42 99 Mechanical Ventilator 30 6/18/17 04:00 90 18/17 04:00 30 18/17 03:58 93 12 100 Mechanical Ventilator 30 18/17 03:57 30 18/17 03:57 93 12 100 Mechanical Ventilator 30 618/17 03:56 93 12 30 618/17 03:00 94 20 139/43 99 Mechanical Ventilator 30 618/17 02:00 88 20 126/37 99 Mechanical Ventilator 30 18/17 01:44 85 21 30 18/17 01:00 88 20 143/40 99 Mechanical Ventilator 30 618/17 00:00 93 18/17 00:00 30 1817 00:00 98.9 94 20 151/43 99 Mechanical Ventilator 30 09/20/16 23:35 95 21 100 Mechanical Ventilator 30 09/20/17 23:21 30 09/20/17 23:21 92 18 100 Mechanical Ventilator 30 617/17 23:20 89 23 30 6/17 23:00 99 20 111/36 99 Mechanical Ventilator 30 617/17 22:00 99 20 83/33 99 Mechanical Ventilator 30 617/17 21:28 98 24 30 617/17 21:00 99 20 89/24 99 Mechanical Ventilator 30 617/17 20:00 30 09/20/16 20:00 80 09/20/16 20:00 98.6 99 20 123/37 99 Mechanical Ventilator 30 6/17 19:36 81 21 100 Mechanical Ventilator 30 09/20/16 19:26 30 09/20/16 19:26 99 19 100 Mechanical Ventilator 30 09/20/16 19:24 98 23 30 09/20/16 19:00 99 20 95/42 99 Mechanical Ventilator 30 General Appearance: WD/WN, on vent EENT: other - et tube in place Neck: other - R tunnelled IJ HD catheter Rhythm: NSR Cardiovascular: normal rate, regular rhythm Respiratory/Chest: no respiratory distress, other - clear anteriorly Abdomen: non tender, soft Extremities: no swelling Intake and Output 09/20/16 09/21/16 19:00 07:00 Intake Total 480 ml 810 ml Output Total 1100 ml Balance -620 ml 810 ml Free Water 100 ml IV Total 230 ml Tube Feeding 480 ml 480 ml Hemodialysis UF 1100 ml # Bowel Movements 1 Laboratory Tests Test 09/21/16 03:50 09/21/16 09:05 White Blood Count 16.5 K/UL (4.8-10.8) H Red Blood Count 3.08 M/UL (4.70-6.10) L Hemoglobin 9.4 G/DL (14.2-18.0) L Hematocrit 30.0 % (42.0-52.0) L Mean Corpuscular Volume 97 FL (80-99) Mean Corpuscular Hemoglobin 30.5 PG (27.0-31.0) Mean Corpuscular Hemoglobin Concent 31.4 G/DL (32.0-36.0) L Red Cell Distribution Width 15.7 % (11.6-14.8) H Platelet Count 286 K/UL (150-450) Mean Platelet Volume 6.9 FL (6.5-10.1) Neutrophils (%) (Auto) 76.3 % (45.0-75.0) H Lymphocytes (%) (Auto) 9.1 % (20.0-45.0) L Monocytes (%) (Auto) 11.1 % (1.0-10.0) H Eosinophils (%) (Auto) 1.2 % (0.0-3.0) Basophils (%) (Auto) 2.4 % (0.0-2.0) H Sodium Level 141 mEQ/L (135-145) Potassium Level 3.8 mEQ/L (3.4-4.9) Chloride Level 92 mEQ/L (98-107) L Carbon Dioxide Level 29 mEQ/L (20-30) Anion Gap 20 (5-15) H Blood Urea Nitrogen 61 mg/dL (7-23) H Creatinine 5.8 mg/dL (0.7-1.2) H Estimat Glomerular Filtration Rate 9.7 mL/min (>60) Glucose Level 377 mg/dL (74-106) #H Calcium Level 10.2 mg/dL (8.6-10.2) Arterial Blood pH 7.424 (7.350-7.450) Arterial Blood Partial Pressure CO2 47.7 mmHg (35.0-45.0) H Arterial Blood Partial Pressure O2 94.3 mmHg (75.0-100.0) Arterial Blood HCO3 30.5 mmol/L (22.0-26.0) H Arterial Blood Oxygen Saturation 95.8 % (92.0-98.0) Arterial Blood Base Excess 5.4 Chas Test Positive ANGEL MARCIAL Sep 21, 2016 18:35
[2016-09-21] MEDS: Cefepime HCl 500 MG in D5W 55 ML IV SCH (20:32)
[2016-09-22] VITALS (24 sets, daily range): BP systolic 80–156; BP diastolic 26–63
[2016-09-22] MEDS: Metoclopramide 10mg/2ml Inj IVP SCH ×4 (04:46→22:31)
[2016-09-22 05:05] LABS: BASOPHILS % (AUTO) 3.3 % (0.0-2.0); EOSINOPHILS % (AUTO) 1.4 % (0.0-3.0); LYMPHOCYTES % (AUTO) 7.5 % (20.0-45.0); MEAN CORPUSCULAR HEMOGLOBIN 30.6 PG (27.0-31.0); MEAN CORPUSCULAR HGB CONC 31.6 G/DL (32.0-36.0); MEAN CORPUSCULAR VOLUME 97 FL (80-99); MONOCYTES % (AUTO) 11.3 % (1.0-10.0); NEUTROPHILS % (AUTO) 76.5 % (45.0-75.0); PLATELET COUNT 244 K/UL (150-450); RED BLOOD COUNT 2.62 M/UL (4.70-6.10); RED CELL DISTRIBUTION WIDTH 15.8 % (11.6-14.8); WHITE BLOOD COUNT 14.4 K/UL (4.8-10.8)
[2016-09-22] MEDS: NovoLOG Insulin Flexpen SUBQ SCH ×4 (05:32→23:24)
[2016-09-22 05:50] LABS: CREATININE 7.2 mg/dL (0.7-1.2); GLOMERULAR FILTRATION RATE 7.6 mL/min (>60)
[2016-09-22] MEDS: Dyna-Hex 2% Top Sol 8oz TOPIC SCH (09:17)
[2016-09-22] MEDS: Valproic Acid 250mg/5ml Liquid GT SCH ×2 (09:18→21:00)
[2016-09-22] MEDS: Phenytoin Susp 100mg/4ml GT SCH ×2 (09:18→20:59)
[2016-09-22] MEDS: Pantoprazole Inj IVP SCH ×2 (09:19→21:00)
[2016-09-22] MEDS: Minoxidil 10mg tab GT SCH ×2 (09:21→17:19)
[2016-09-22] MEDS: Bethanechol 10mg Tab ORAL SCH ×3 (09:22→17:20)
[2016-09-22] MEDS: Heparin 5000 units/ml inj SUBQ SCH ×2 (09:23→21:01)
--- NOTE | 2016-09-22 10:10 | Pulmonology Progress Note ---
Assessment/Plan Assessment/Plan 1. Status post cardiac arrest. 2. Renal failure with hyperkalemia. 3. Respiratory failure. 4. Anoxic encephalopathy. 5. Status epilepticus 6. Coronary artery disease. 7. History of cardiomyopathy. 8. Diabetes. 9. Hypertension. trach and peg this week no change in vent, wean after trach nebs and suction monitor BP, pressors if MAP less than 65 mmhg wound care TF prognosis guarded DVT prophylaxis HD per renal continue abx cxr today Subjective Interval Events: No new events Constitutional: Reports: no symptoms HEENT: Repors: no symptoms Respiratory: Reports: no symptoms Cardiovascular: Reports: no symptoms Gastrointestinal/Abdominal: Reports: no symptoms Genitourinary: Reports: no symptoms Allergies: Coded Allergies: NIACIN (Verified Allergy, Unknown, ITCHING, 01/30/12) Objective Last 24 Hour Vital Signs Date Time Temp Pulse Resp B/P Pulse Ox O2 Delivery O2 Flow Rate FiO2 09/22/16 09:21 127/41 09/22/16 09:00 85 127/41 09/22/16 08:50 85 16 30 09/22/16 08:00 30 09/22/16 08:00 88 09/22/16 07:00 89 19 106/40 100 Mechanical Ventilator 30 09/22/16 06:44 89 19 30 09/22/16 06:00 87 19 89/35 100 Mechanical Ventilator 30 09/22/16 05:15 85 15 30 09/22/16 05:00 87 19 105/36 100 Mechanical Ventilator 30 09/22/16 04:00 98.6 86 20 108/45 99 Mechanical Ventilator 30 09/22/16 04:00 88 09/22/16 04:00 30 09/22/16 03:01 82 15 30 09/22/16 03:00 86 19 124/47 100 Mechanical Ventilator 30 09/22/16 02:00 83 19 142/63 100 Mechanical Ventilator 30 09/22/16 01:00 75 16 Mechanical Ventilator 30 09/22/16 01:00 80 19 82/26 100 Mechanical Ventilator 30 09/22/16 00:59 75 13 30 09/22/16 00:00 98.6 80 18 111/40 100 Mechanical Ventilator 30 09/22/16 00:00 30 09/22/16 00:00 76 09/21/16 23:26 98.9 6/18/17 23:00 76 19 131/38 100 Mechanical Ventilator 30 618/17 22:52 76 15 30 618/17 22:00 83 19 134/32 100 Mechanical Ventilator 30 618/17 21:00 86 19 142/51 100 Mechanical Ventilator 30 6/18/17 20:48 86 16 30 6/18/17 20:00 75 6/18/17 20:00 98.9 80 20 132/48 99 Mechanical Ventilator 30 618/17 20:00 30 618/17 19:00 78 19 106/36 100 Mechanical Ventilator 30 618/17 18:45 83 17 30 618/17 18:16 84 19 98/42 100 Mechanical Ventilator 30 618/17 18:00 98/42 618/17 18:00 86 22 121/69 100 Mechanical Ventilator 30 618/17 17:00 98.6 85 25 115/38 100 Mechanical Ventilator 30 618/17 16:00 30 18/17 16:00 86 18/17 16:00 88 22 110/42 100 Mechanical Ventilator 30 18/17 15:10 87 29 30 18/17 15:00 86 28 98/36 100 Mechanical Ventilator 30 618/17 15:00 87 20 98/36 100 Mechanical Ventilator 30 18/17 14:00 84 20 130/42 100 Mechanical Ventilator 30 1817 14:00 86 28 117/41 100 Mechanical Ventilator 30 18/17 13:26 81 14 30 18/17 13:00 86 28 117/41 100 Mechanical Ventilator 30 18/17 12:00 84 1817 12:00 99.2 84 20 90/31 99 Mechanical Ventilator 30 1817 12:00 30 1817 11:18 85 20 98 Mechanical Ventilator 4.0 30 09/21/16 11:03 85 20 98 Mechanical Ventilator 30 09/21/16 11:03 30 09/21/16 11:02 85 20 30 09/21/16 11:00 85 19 88/30 99 Mechanical Ventilator 30 Intake and Output 17 09/22/16 19:00 07:00 Intake Total 540 ml 635 ml Output Total 250 ml Balance 290 ml 635 ml IV Total 55 ml Tube Feeding 540 ml 480 ml Other 100 ml Emesis 250 ml # Voids 1 # Bowel Movements 1 6 General Appearance: no acute distress HEENT: normocephalic Respiratory/Chest: chest wall non-tender, lungs clear Cardiovascular: normal peripheral pulses, normal rate Abdomen: normal bowel sounds, soft, non tender Laboratory Tests 09/22/16 04:35: White Blood Count 14.4H, Red Blood Count 2.62L, Hemoglobin 8.0L, Hematocrit 25.4L, Mean Corpuscular Volume 97, Mean Corpuscular Hemoglobin 30.6, Mean Corpuscular Hemoglobin Concent 31.6L, Red Cell Distribution Width 15.8H, Platelet Count 244, Mean Platelet Volume 7.0, Neutrophils (%) (Auto) 76.5H, Lymphocytes (%) (Auto) 7.5L, Monocytes (%) (Auto) 11.3H, Eosinophils (%) (Auto) 1.4, Basophils (%) (Auto) 3.3H, Sodium Level 140, Potassium Level 4.0, Chloride Level 93L, Carbon Dioxide Level 29, Anion Gap 18H, Blood Urea Nitrogen 80H, Creatinine 7.2H, Estimat Glomerular Filtration Rate 7.6, Glucose Level 315H, Calcium Level 10.0, Random Vancomycin Level 22.5 09/22/16 09:45: Prothrombin Time [Pending], Prothromb Time International Ratio [Pending], Levetiracetam (Keppra) Level [Pending] Current Medications Medications (Trade) Dose Ordered Sig/Mark Route PRN Reason Start Time Stop Time Status Last Admin Dose Admin Acetaminophen (Tylenol) 650 mg Q4H PRN ORAL Mild Pain (Pain Scale 1-3) 09/06/16 23:00 10/06/16 22:59 09/22/16 09:18 Amlodipine Besylate (Norvasc) 10 mg DAILY GT 09/15/16 10:56 10/07/16 08:59 09/19/16 08:07 Bethanechol Chloride (Urecholine) 10 mg THREE TIMES A DAY ORAL 09/21/16 13:00 10/21/16 12:59 09/22/16 09:22 Cefepime HCl 500 mg/Dextrose 55 ml @ 110 mls/hr Q24H IV 09/18/16 20:00 09/25/16 19:59 09/21/16 20:32 Chlorhexidine Gluconate (Lakshmi-Hex 2%) 1 applic DAILY TOPIC 09/10/16 03:30 10/10/16 03:29 09/22/16 09:17 Dextrose (Dextrose 50%) STAT PRN IV Hypoglycemia 09/06/16 23:00 10/06/16 22:59 Heparin Sodium (Porcine) (Heparin 5000 units/ml) 5,000 units EVERY 12 HOURS SUBQ 09/08/16 21:00 10/08/16 20:59 09/22/16 09:23 Insulin Aspart (NovoLOG) EVERY 6 HOURS SUBQ 09/07/16 18:00 10/07/16 17:59 09/22/16 05:32 Lorazepam (Ativan 2mg/ml 1ml) 1 mg Q1HR PRN IV For Seizure Activity 09/15/16 22:45 09/22/16 22:44 Metoclopramide HCl (Reglan) 5 mg Q6H IVP 09/15/16 22:30 10/15/16 22:29 09/22/16 09:23 Minoxidil (Loniten) 15 mg BID GT 09/15/16 10:57 10/13/16 17:59 09/22/16 09:21 Pantoprazole (Protonix) 40 mg EVERY 12 HOURS IVP 09/15/16 22:30 10/15/16 22:29 09/22/16 09:19 Phenytoin (Dilantin) 300 mg Q12HR GT 09/18/16 21:00 10/18/16 20:59 09/22/16 09:18 Phenytoin/Sodium Chloride (Dilantin/Sodium Chloride) 120 ml @ 120 mls/hr POSTHD IVPB 09/17/16 21:00 10/17/16 20:59 09/20/16 19:30 Polyethylene Glycol (Miralax) 17 gm DAILYPRN PRN ORAL Constipation 09/06/16 23:00 10/06/16 22:59 Valproic Acid (Depakene) 1,000 mg POSTHD GT 09/17/16 18:00 10/17/16 17:59 09/20/16 17:28 Valproic Acid (Depakene) 1,500 mg Q12HR GT 09/17/16 21:00 10/17/16 20:59 09/22/16 09:18 Vancomycin HCl 1 ea 1 ea DAILY PRN MISC Per rx protocol 09/17/16 17:30 10/17/16 17:29 Delvin Bryant MD Sep 22, 2016 10:10
[2016-09-22 10:53] LABS: INR 1.1 (0.9-1.1)
[2016-09-22] MEDS ORDERED: Lidocaine 1% Plain 30 ml INJ PRN (11:00)
[2016-09-22] MEDS ORDERED: Sodium Bicarbonate 4% 2.4meq/5ml vial INJ PRN (11:00)
[2016-09-22] MEDS ORDERED: Heparin 2000 units/Ns 1000ml INJ PRN (11:00)
--- NOTE | 2016-09-22 11:01 | Internal Med Progress Note ---
Subjective Date of Service: Sep 22, 2016 Physician Name Filiberto Clancy Attending Physician Harrison Delatorre Current Medications Medications (Trade) Dose Ordered Sig/Mark Route PRN Reason Start Time Stop Time Status Last Admin Dose Admin Acetaminophen (Tylenol) 650 mg Q4H PRN ORAL Mild Pain (Pain Scale 1-3) 09/06/16 23:00 10/06/16 22:59 09/22/16 09:18 Amlodipine Besylate (Norvasc) 10 mg DAILY GT 09/15/16 10:56 10/07/16 08:59 09/19/16 08:07 Bethanechol Chloride (Urecholine) 10 mg THREE TIMES A DAY ORAL 09/21/16 13:00 10/21/16 12:59 09/22/16 09:22 Cefepime HCl 500 mg/Dextrose 55 ml @ 110 mls/hr Q24H IV 09/18/16 20:00 09/25/16 19:59 09/21/16 20:32 Chlorhexidine Gluconate (Lakshmi-Hex 2%) 1 applic DAILY TOPIC 09/10/16 03:30 10/10/16 03:29 09/22/16 09:17 Dextrose (Dextrose 50%) STAT PRN IV Hypoglycemia 09/06/16 23:00 10/06/16 22:59 Heparin Sodium (Porcine) (Heparin 5000 units/ml) 5,000 units EVERY 12 HOURS SUBQ 09/08/16 21:00 10/08/16 20:59 09/22/16 09:23 Insulin Aspart (NovoLOG) EVERY 6 HOURS SUBQ 09/07/16 18:00 10/07/16 17:59 09/22/16 05:32 Lorazepam (Ativan 2mg/ml 1ml) 1 mg Q1HR PRN IV For Seizure Activity 09/15/16 22:45 09/22/16 22:44 Metoclopramide HCl (Reglan) 5 mg Q6H IVP 09/15/16 22:30 10/15/16 22:29 09/22/16 09:23 Minoxidil (Loniten) 15 mg BID GT 09/15/16 10:57 10/13/16 17:59 09/22/16 09:21 Pantoprazole (Protonix) 40 mg EVERY 12 HOURS IVP 09/15/16 22:30 10/15/16 22:29 09/22/16 09:19 Phenytoin (Dilantin) 300 mg Q12HR GT 09/18/16 21:00 10/18/16 20:59 09/22/16 09:18 Phenytoin/Sodium Chloride (Dilantin/Sodium Chloride) 120 ml @ 120 mls/hr POSTHD IVPB 09/17/16 21:00 10/17/16 20:59 09/20/16 19:30 Polyethylene Glycol (Miralax) 17 gm DAILYPRN PRN ORAL Constipation 09/06/16 23:00 10/06/16 22:59 Valproic Acid (Depakene) 1,000 mg POSTHD GT 09/17/16 18:00 10/17/16 17:59 09/20/16 17:28 Valproic Acid (Depakene) 1,500 mg Q12HR GT 09/17/16 21:00 10/17/16 20:59 09/22/16 09:18 Vancomycin HCl 1 ea 1 ea DAILY PRN MISC Per rx protocol 09/17/16 17:30 10/17/16 17:29 Allergies: Coded Allergies: NIACIN (Verified Allergy, Unknown, ITCHING, 01/30/12) ROS Limited/Unobtainable: Yes Subjective 71 YO M admitted with volume overload and respiratory failure. S/P cardiopulmonary arrest. ICU. Intubated and sedated. Cover for Int Med-Dr Vail. Family agrees to PEG and tracheostomy Objective Last Vital Signs Date Time Temp Pulse Resp B/P Pulse Ox O2 Delivery O2 Flow Rate FiO2 09/22/16 10:32 98.9 09/22/16 10:00 82 18 106/40 99 Mechanical Ventilator 30 09/21/16 11:18 4.0 Laboratory Tests Test 09/22/16 04:35 09/22/16 09:45 White Blood Count 14.4 K/UL (4.8-10.8) H Red Blood Count 2.62 M/UL (4.70-6.10) L Hemoglobin 8.0 G/DL (14.2-18.0) L Hematocrit 25.4 % (42.0-52.0) L Mean Corpuscular Volume 97 FL (80-99) Mean Corpuscular Hemoglobin 30.6 PG (27.0-31.0) Mean Corpuscular Hemoglobin Concent 31.6 G/DL (32.0-36.0) L Red Cell Distribution Width 15.8 % (11.6-14.8) H Platelet Count 244 K/UL (150-450) Mean Platelet Volume 7.0 FL (6.5-10.1) Neutrophils (%) (Auto) 76.5 % (45.0-75.0) H Lymphocytes (%) (Auto) 7.5 % (20.0-45.0) L Monocytes (%) (Auto) 11.3 % (1.0-10.0) H Eosinophils (%) (Auto) 1.4 % (0.0-3.0) Basophils (%) (Auto) 3.3 % (0.0-2.0) H Sodium Level 140 mEQ/L (135-145) Potassium Level 4.0 mEQ/L (3.4-4.9) Chloride Level 93 mEQ/L (98-107) L Carbon Dioxide Level 29 mEQ/L (20-30) Anion Gap 18 (5-15) H Blood Urea Nitrogen 80 mg/dL (7-23) H Creatinine 7.2 mg/dL (0.7-1.2) H Estimat Glomerular Filtration Rate 7.6 mL/min (>60) Glucose Level 315 mg/dL (74-106) H Calcium Level 10.0 mg/dL (8.6-10.2) Random Vancomycin Level 22.5 ug/mL Prothrombin Time 12.0 SEC (9.30-11.50) H Prothromb Time International Ratio 1.1 (0.9-1.1) Levetiracetam (Keppra) Level Pending Intake and Output 09/21/16 09/22/16 19:00 07:00 Intake Total 540 ml 635 ml Output Total 250 ml Balance 290 ml 635 ml IV Total 55 ml Tube Feeding 540 ml 480 ml Other 100 ml Emesis 250 ml # Voids 1 # Bowel Movements 1 6 Objective General Appearance: WD/WN, lethargic EENT: PERRL/EOMI, normal ENT inspection, TMs normal Neck: non-tender, normal alignment, supple Cardiovascular: normal peripheral pulses, normal rate, regular rhythm, no gallop/murmur, no JVD Respiratory/Chest: Mech vent; chest wall non-tender, crackles/rales, rhonchi - bilaterally, expiratory wheezing Abdomen: normal bowel sounds, non tender, soft, no organomegaly Skin: normal pigmentation, warm/dry Assessment/Plan Problem List: (1) HTN (hypertension) Assessment & Plan: Cont amlodipine. (2) Hyperkalemia (3) Respiratory failure with hypoxia Assessment & Plan: Intubated and sedated. (4) ESRD (end stage renal disease) Assessment & Plan: See nephrology note. Last Hemodialysis 09/20/16 per nephrology (5) CHF (congestive heart failure) (6) Diabetes mellitus Assessment & Plan: Cont novolog sliding scale. 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 (9) Anoxic encephalopathy syndrome Assessment & Plan: See neruo note. (10) Enterobacter sepsis (11) Pneumonia Assessment & Plan: Enterobacter. cont cefepime per ID (12) Anemia Assessment & Plan: Repeat CBC this pm Status: not improved Assessment/Plan Await tracheostomy and PEG; will require PICC for surgery scheduled this week. FILIBERTO CLANCY Sep 22, 2016 11:01
--- NOTE | 2016-09-22 11:25 | Infectious Diseases Prog Note ---
Assessment/Plan Assessment/Plan A; Sepsis improving pneumonia with Enterobacter COPD s/p cardiac arrest Anoxic encephalopathy ESRD on HD Respiratory failure P; discontinue Vancomycin & Cefepime Change to Levaquin Subjective ROS Limited/Unobtainable: Yes Allergies: Coded Allergies: NIACIN (Verified Allergy, Unknown, ITCHING, 01/30/12) Objective Vital Signs Last 24 Hour Vital Signs Date Time Temp Pulse Resp B/P Pulse Ox O2 Delivery O2 Flow Rate FiO2 09/22/16 11:08 83 15 30 09/22/16 10:32 98.9 09/22/16 10:00 82 18 106/40 99 Mechanical Ventilator 30 09/22/16 09:21 127/41 09/22/16 09:00 85 18 127/41 100 Mechanical Ventilator 30 09/22/16 09:00 85 127/41 09/22/16 08:50 85 16 30 09/22/16 08:00 99.0 84 17 80/38 100 Mechanical Ventilator 30 09/22/16 08:00 30 09/22/16 08:00 88 09/22/16 07:00 89 19 106/40 100 Mechanical Ventilator 30 09/22/16 06:44 89 19 30 09/22/16 06:00 87 19 89/35 100 Mechanical Ventilator 30 09/22/16 05:15 85 15 30 09/22/16 05:00 87 19 105/36 100 Mechanical Ventilator 30 09/22/16 04:00 98.6 86 20 108/45 99 Mechanical Ventilator 30 09/22/16 04:00 88 09/22/16 04:00 30 09/22/16 03:01 82 15 30 09/22/16 03:00 86 19 124/47 100 Mechanical Ventilator 30 09/22/16 02:00 83 19 142/63 100 Mechanical Ventilator 30 09/22/16 01:00 75 16 Mechanical Ventilator 30 09/22/16 01:00 80 19 82/26 100 Mechanical Ventilator 30 09/22/16 00:59 75 13 30 09/22/16 00:00 98.6 80 18 111/40 100 Mechanical Ventilator 30 09/22/16 00:00 30 09/22/16 00:00 76 09/21/16 23:00 76 19 131/38 100 Mechanical Ventilator 30 09/21/16 22:52 76 15 30 09/21/16 22:00 83 19 134/32 100 Mechanical Ventilator 30 09/21/16 21:00 86 19 142/51 100 Mechanical Ventilator 30 09/21/16 20:48 86 16 30 09/21/16 20:00 75 09/21/16 20:00 98.9 80 20 132/48 99 Mechanical Ventilator 30 09/21/16 20:00 30 09/21/16 19:00 78 19 106/36 100 Mechanical Ventilator 30 09/21/16 18:45 83 17 30 09/21/16 18:16 84 19 98/42 100 Mechanical Ventilator 30 09/21/16 18:00 98/42 09/21/16 18:00 86 22 121/69 100 Mechanical Ventilator 30 09/21/16 17:00 98.6 85 25 115/38 100 Mechanical Ventilator 30 09/21/16 16:00 30 09/21/16 16:00 86 09/21/16 16:00 88 22 110/42 100 Mechanical Ventilator 30 09/21/16 15:10 87 29 30 09/21/16 15:00 86 28 98/36 100 Mechanical Ventilator 30 09/21/16 15:00 87 20 98/36 100 Mechanical Ventilator 30 09/21/16 14:00 84 20 130/42 100 Mechanical Ventilator 30 09/21/16 14:00 86 28 117/41 100 Mechanical Ventilator 30 09/21/16 13:26 81 14 30 09/21/16 13:00 86 28 117/41 100 Mechanical Ventilator 30 09/21/16 12:00 84 09/21/16 12:00 99.2 84 20 90/31 99 Mechanical Ventilator 30 09/21/16 12:00 30 Height (Feet): 5 Height (Inches): 6.00 Weight (Pounds): 171 HEENT: other - orally intubated Respiratory/Chest: rhonchi - bilaterally, other - on ventilator Cardiovascular: normal rate, other - Permacath Abdomen: soft, non tender Neurologic/Psychiatric: disoriented Laboratory Tests Test 09/22/16 04:35 09/22/16 09:45 White Blood Count 14.4 K/UL (4.8-10.8) H Red Blood Count 2.62 M/UL (4.70-6.10) L Hemoglobin 8.0 G/DL (14.2-18.0) L Hematocrit 25.4 % (42.0-52.0) L Mean Corpuscular Volume 97 FL (80-99) Mean Corpuscular Hemoglobin 30.6 PG (27.0-31.0) Mean Corpuscular Hemoglobin Concent 31.6 G/DL (32.0-36.0) L Red Cell Distribution Width 15.8 % (11.6-14.8) H Platelet Count 244 K/UL (150-450) Mean Platelet Volume 7.0 FL (6.5-10.1) Neutrophils (%) (Auto) 76.5 % (45.0-75.0) H Lymphocytes (%) (Auto) 7.5 % (20.0-45.0) L Monocytes (%) (Auto) 11.3 % (1.0-10.0) H Eosinophils (%) (Auto) 1.4 % (0.0-3.0) Basophils (%) (Auto) 3.3 % (0.0-2.0) H Sodium Level 140 mEQ/L (135-145) Potassium Level 4.0 mEQ/L (3.4-4.9) Chloride Level 93 mEQ/L (98-107) L Carbon Dioxide Level 29 mEQ/L (20-30) Anion Gap 18 (5-15) H Blood Urea Nitrogen 80 mg/dL (7-23) H Creatinine 7.2 mg/dL (0.7-1.2) H Estimat Glomerular Filtration Rate 7.6 mL/min (>60) Glucose Level 315 mg/dL (74-106) H Calcium Level 10.0 mg/dL (8.6-10.2) Random Vancomycin Level 22.5 ug/mL Prothrombin Time 12.0 SEC (9.30-11.50) H Prothromb Time International Ratio 1.1 (0.9-1.1) Levetiracetam (Keppra) Level Pending Current Medications Medications (Trade) Dose Ordered Sig/Mark Route PRN Reason Start Time Stop Time Status Last Admin Dose Admin Acetaminophen (Tylenol) 650 mg Q4H PRN ORAL Mild Pain (Pain Scale 1-3) 09/06/16 23:00 10/06/16 22:59 09/22/16 09:18 Amlodipine Besylate (Norvasc) 10 mg DAILY GT 09/15/16 10:56 10/07/16 08:59 09/19/16 08:07 Bethanechol Chloride (Urecholine) 10 mg THREE TIMES A DAY ORAL 09/21/16 13:00 10/21/16 12:59 09/22/16 09:22 Cefepime HCl 500 mg/Dextrose 55 ml @ 110 mls/hr Q24H IV 09/18/16 20:00 09/25/16 19:59 09/21/16 20:32 Chlorhexidine Gluconate (Lakshmi-Hex 2%) 1 applic DAILY TOPIC 09/23/16 09:00 10/23/16 08:59 Dextrose (Dextrose 50%) STAT PRN IV Hypoglycemia 09/06/16 23:00 10/06/16 22:59 Heparin Sodium (Porcine) (Heparin 5000 units/ml) 5,000 units EVERY 12 HOURS SUBQ 09/08/16 21:00 10/08/16 20:59 09/22/16 09:23 Heparin Sodium/ Sodium Chloride (Heparin 2000 units/Ns 1000ml premix) 2,000 unit ONCE PRN INJ PICC PLACEMENT 09/22/16 11:00 09/23/16 23:59 Insulin Aspart (NovoLOG) EVERY 6 HOURS SUBQ 09/07/16 18:00 10/07/16 17:59 09/22/16 05:32 Lidocaine HCl (Xylocaine 1% 30ml) 30 ml ONCE PRN INJ PICC PLACEMENT 09/22/16 11:00 09/23/16 23:59 Lorazepam (Ativan 2mg/ml 1ml) 1 mg Q1HR PRN IV For Seizure Activity 09/15/16 22:45 09/22/16 22:44 Metoclopramide HCl (Reglan) 5 mg Q6H IVP 09/15/16 22:30 10/15/16 22:29 09/22/16 09:23 Minoxidil (Loniten) 15 mg BID GT 09/15/16 10:57 10/13/16 17:59 09/22/16 09:21 Pantoprazole (Protonix) 40 mg EVERY 12 HOURS IVP 09/15/16 22:30 10/15/16 22:29 09/22/16 09:19 Phenytoin (Dilantin) 300 mg Q12HR GT 09/18/16 21:00 10/18/16 20:59 09/22/16 09:18 Phenytoin/Sodium Chloride (Dilantin/Sodium Chloride) 120 ml @ 120 mls/hr POSTHD IVPB 09/17/16 21:00 10/17/16 20:59 09/20/16 19:30 Polyethylene Glycol (Miralax) 17 gm DAILYPRN PRN ORAL Constipation 09/06/16 23:00 10/06/16 22:59 Sodium Bicarbonate (Sodium Bicarbonate 4%) 1 ml ONCE PRN INJ PICC PLACEMENT 09/22/16 11:00 09/23/16 23:59 Valproic Acid (Depakene) 1,000 mg POSTHD GT 09/17/16 18:00 10/17/16 17:59 09/20/16 17:28 Valproic Acid (Depakene) 1,500 mg Q12HR GT 09/17/16 21:00 10/17/16 20:59 09/22/16 09:18 Vancomycin HCl 1 ea 1 ea DAILY PRN MISC Per rx protocol 09/17/16 17:30 10/17/16 17:29 ROZINA BREAUX Sep 22, 2016 11:25
--- NOTE | 2016-09-22 12:54 | Nephrology Progress Note ---
Assessment/Plan Problem List: (1) ESRD (end stage renal disease) (2) Anoxic encephalopathy syndrome (3) Respiratory failure with hypoxia (4) CHF (congestive heart failure) (5) HTN (hypertension) Assessment R arm edema Plan HD on Thursday Vent support PEG tomorrow Trach on Thursday follow labs TF Discussed with RN Subjective Subjective remains intubated no improvement in MS Objective Objective Last 24 Hour Vital Signs Date Time Temp Pulse Resp B/P Pulse Ox O2 Delivery O2 Flow Rate FiO2 09/22/16 12:00 98.8 83 27 156/48 99 Mechanical Ventilator 30 09/22/16 12:00 78 09/22/16 12:00 30 09/22/16 11:08 83 15 30 09/22/16 11:00 82 18 106/40 99 Mechanical Ventilator 30 09/22/16 10:32 98.9 09/22/16 10:00 82 18 106/40 99 Mechanical Ventilator 30 09/22/16 09:21 127/41 09/22/16 09:00 85 18 127/41 100 Mechanical Ventilator 30 09/22/16 09:00 85 127/41 09/22/16 08:50 85 16 30 09/22/16 08:00 99.0 84 17 80/38 100 Mechanical Ventilator 30 09/22/16 08:00 30 09/22/16 08:00 88 09/22/16 07:00 89 19 106/40 100 Mechanical Ventilator 30 09/22/16 06:44 89 19 30 09/22/16 06:00 87 19 89/35 100 Mechanical Ventilator 30 09/22/16 05:15 85 15 30 09/22/16 05:00 87 19 105/36 100 Mechanical Ventilator 30 09/22/16 04:00 98.6 86 20 108/45 99 Mechanical Ventilator 30 09/22/16 04:00 88 09/22/16 04:00 30 09/22/16 03:01 82 15 30 09/22/16 03:00 86 19 124/47 100 Mechanical Ventilator 30 09/22/16 02:00 83 19 142/63 100 Mechanical Ventilator 30 09/22/16 01:00 75 16 Mechanical Ventilator 30 09/22/16 01:00 80 19 82/26 100 Mechanical Ventilator 30 09/22/16 00:59 75 13 30 09/22/16 00:00 98.6 80 18 111/40 100 Mechanical Ventilator 30 09/22/16 00:00 30 09/22/16 00:00 76 18 23:00 76 19 131/38 100 Mechanical Ventilator 30 09/21/16 22:52 76 15 30 17 22:00 83 19 134/32 100 Mechanical Ventilator 30 17 21:00 86 19 142/51 100 Mechanical Ventilator 30 1817 20:48 86 16 30 09/21/16 20:00 75 09/21/16 20:00 98.9 80 20 132/48 99 Mechanical Ventilator 30 09/21/16 20:00 30 09/21/16 19:00 78 19 106/36 100 Mechanical Ventilator 30 09/21/16 18:45 83 17 30 09/21/16 18:16 84 19 98/42 100 Mechanical Ventilator 30 09/21/16 18:00 98/42 09/21/16 18:00 86 22 121/69 100 Mechanical Ventilator 30 09/21/16 17:00 98.6 85 25 115/38 100 Mechanical Ventilator 30 09/21/16 16:00 30 09/21/16 16:00 86 09/21/16 16:00 88 22 110/42 100 Mechanical Ventilator 30 09/21/16 15:10 87 29 30 09/21/16 15:00 86 28 98/36 100 Mechanical Ventilator 30 09/21/16 15:00 87 20 98/36 100 Mechanical Ventilator 30 09/21/16 14:00 84 20 130/42 100 Mechanical Ventilator 30 09/21/16 14:00 86 28 117/41 100 Mechanical Ventilator 30 09/21/16 13:26 81 14 30 09/21/16 13:00 86 28 117/41 100 Mechanical Ventilator 30 Intake and Output 09/21/16 09/22/16 19:00 07:00 Intake Total 540 ml 635 ml Output Total 250 ml Balance 290 ml 635 ml IV Total 55 ml Tube Feeding 540 ml 480 ml Other 100 ml Emesis 250 ml # Voids 1 # Bowel Movements 1 6 Laboratory Tests 09/22/16 04:35: White Blood Count 14.4H, Red Blood Count 2.62L, Hemoglobin 8.0L, Hematocrit 25.4L, Mean Corpuscular Volume 97, Mean Corpuscular Hemoglobin 30.6, Mean Corpuscular Hemoglobin Concent 31.6L, Red Cell Distribution Width 15.8H, Platelet Count 244, Mean Platelet Volume 7.0, Neutrophils (%) (Auto) 76.5H, Lymphocytes (%) (Auto) 7.5L, Monocytes (%) (Auto) 11.3H, Eosinophils (%) (Auto) 1.4, Basophils (%) (Auto) 3.3H, Sodium Level 140, Potassium Level 4.0, Chloride Level 93L, Carbon Dioxide Level 29, Anion Gap 18H, Blood Urea Nitrogen 80H, Creatinine 7.2H, Estimat Glomerular Filtration Rate 7.6, Glucose Level 315H, Calcium Level 10.0, Random Vancomycin Level 22.5 09/22/16 09:45: Prothrombin Time 12.0H, Prothromb Time International Ratio 1.1, Levetiracetam ( Keppra) Level [Pending] Height (Feet): 5 Height (Inches): 6.00 Weight (Pounds): 171 Cardiovascular: normal rate Respiratory/Chest: rhonchi - bilaterally Extremities: moderate edema - R arm CANDICE BREAUX Sep 22, 2016 12:54
--- NOTE | 2016-09-22 13:00 | Consultation ---
DATE OF CONSULTATION: 09/22/2016 HEAD AND NECK SURGERY ENT CONSULT REQUESTING PHYSICIAN: Dr. Merino. CONSULTING PHYSICIAN: Kermit Arriaga M.D. INDICATION FOR CONSULTATION: I have been in contact with Dr. Merino, over the past week regarding this 71-year-old male, who is failure to extubate and I have been requested to do a tracheostomy regarding prolonged intubation. He is tentatively scheduled for Thursday afternoon. MEDICATIONS: His medications , Dilantin, Tylenol, Norvasc, Urecholine, Lakshmi-Hex, heparin, sliding scale of insulin, albuterol sulfate, Reglan, Ativan, Protonix, minoxidil, MiraLax, Depakene, and vancomycin. ALLERGIES: He is allergic to niacin. All information is taken from his past medical records in the chart and notes that are available. PHYSICAL EXAMINATION: VITAL SIGNS: He is 167.64 cm, 77.593 kg, BMI 27.6 kg/m2. HEENT: Head is normocephalic. Ears, positive light reflex. Normal canals. He does have history of being hard of hearing according to the chart. NECK: Good landmarks. Trach is placed in his mouth. ASSESSMENT: He is a candidate for tracheostomy, which is scheduled on Thursday. His INR is 1.1, which was done over a week ago. So, I will repeat that and his platelets do appear to be adequate at 244,000 on 09/22/2016. Thank you very much for asking my opinion in the care and treatment of this patient. Kermit Arriaga M.D. DR: SHY JOB#: [id number] CC:
[2016-09-22 14:10] LABS: BASOPHILS % (AUTO) 3.2 % (0.0-2.0); EOSINOPHILS % (AUTO) 1.3 % (0.0-3.0); LYMPHOCYTES % (AUTO) 13.5 % (20.0-45.0); MEAN CORPUSCULAR HGB CONC 31.4 G/DL (32.0-36.0); MEAN CORPUSCULAR VOLUME 96 FL (80-99); MEAN PLATELET VOLUME 6.7 FL (6.5-10.1); MONOCYTES % (AUTO) 10.7 % (1.0-10.0); NEUTROPHILS % (AUTO) 71.2 % (45.0-75.0); PLATELET COUNT 256 K/UL (150-450); RED CELL DISTRIBUTION WIDTH 15.4 % (11.6-14.8); WHITE BLOOD COUNT 13.9 K/UL (4.8-10.8)
--- NOTE | 2016-09-22 21:33 | General Progress Note ---
Assessment/Plan Assessment/Plan Assessment - TF intolerance , N/V - will likely remain an issue after PEG placement (d/w son, Dania, re this issue) - presumed DM gastroparesis - can convert G to GJ tube in future if gastroparesis persists - encephalopathy - resp failure - DM with glucose in 250 - 350 range - needs better control - renal failure - Anemia Recommendations - BID IV PPI - Reglan / bethanecol - TF. - Monitor residuals - consider adding Lantus or Endo consult to optimize glycemic control - PEG in am Subjective Allergies: Coded Allergies: NIACIN (Verified Allergy, Unknown, ITCHING, 01/30/12) Subjective Above noted seen in ICU d/w RN had some high residuals early am TF restarted, slowly Objective Last 24 Hour Vital Signs Date Time Temp Pulse Resp B/P Pulse Ox O2 Delivery O2 Flow Rate FiO2 09/22/16 20:35 98.6 09/22/16 20:00 30 09/22/16 18:57 93 22 30 09/22/16 18:00 92 30 116/38 96 Mechanical Ventilator 29 09/22/16 17:19 87/26 09/22/16 17:00 99.0 82 32 87/26 100 Mechanical Ventilator 30 09/22/16 16:42 82 15 30 09/22/16 16:00 30 09/22/16 16:00 84 09/22/16 16:00 87 30 95/29 100 Mechanical Ventilator 30 09/22/16 15:00 85 28 124/41 100 Mechanical Ventilator 30 09/22/16 14:30 84 15 30 09/22/16 14:00 84 24 150/47 100 Mechanical Ventilator 30 09/22/16 13:00 77 26 82/30 98 Mechanical Ventilator 30 09/22/16 12:38 80 16 30 09/22/16 12:00 98.8 83 27 156/48 99 Mechanical Ventilator 30 09/22/16 12:00 78 09/22/16 12:00 30 09/22/16 11:08 83 15 30 09/22/16 11:00 82 18 106/40 99 Mechanical Ventilator 30 09/22/16 10:00 82 18 106/40 99 Mechanical Ventilator 30 09/22/16 09:21 127/41 09/22/16 09:00 85 18 127/41 100 Mechanical Ventilator 30 09/22/16 09:00 85 127/41 09/22/16 08:50 85 16 30 09/22/16 08:00 99.0 84 17 80/38 100 Mechanical Ventilator 30 09/22/16 08:00 30 09/22/16 08:00 88 09/22/16 07:00 89 19 106/40 100 Mechanical Ventilator 30 09/22/16 06:44 89 19 30 09/22/16 06:00 87 19 89/35 100 Mechanical Ventilator 30 09/22/16 05:15 85 15 30 09/22/16 05:00 87 19 105/36 100 Mechanical Ventilator 30 09/22/16 04:00 98.6 86 20 108/45 99 Mechanical Ventilator 30 09/22/16 04:00 88 09/22/16 04:00 30 09/22/16 03:01 82 15 30 09/22/16 03:00 86 19 124/47 100 Mechanical Ventilator 30 09/22/16 02:00 83 19 142/63 100 Mechanical Ventilator 30 09/22/16 01:00 75 16 Mechanical Ventilator 30 09/22/16 01:00 80 19 82/26 100 Mechanical Ventilator 30 09/22/16 00:59 75 13 30 09/22/16 00:00 98.6 80 18 111/40 100 Mechanical Ventilator 30 09/22/16 00:00 30 09/22/16 00:00 76 09/21/16 23:00 76 19 131/38 100 Mechanical Ventilator 30 09/21/16 22:52 76 15 30 09/21/16 22:00 83 19 134/32 100 Mechanical Ventilator 30 Intake and Output 09/21/16 09/22/16 19:00 07:00 Intake Total 540 ml 635 ml Output Total 250 ml Balance 290 ml 635 ml IV Total 55 ml Tube Feeding 540 ml 480 ml Other 100 ml Emesis 250 ml # Voids 1 # Bowel Movements 1 6 Laboratory Tests 09/22/16 04:35: White Blood Count 14.4H, Red Blood Count 2.62L, Hemoglobin 8.0L, Hematocrit 25.4L, Mean Corpuscular Volume 97, Mean Corpuscular Hemoglobin 30.6, Mean Corpuscular Hemoglobin Concent 31.6L, Red Cell Distribution Width 15.8H, Platelet Count 244, Mean Platelet Volume 7.0, Neutrophils (%) (Auto) 76.5H, Lymphocytes (%) (Auto) 7.5L, Monocytes (%) (Auto) 11.3H, Eosinophils (%) (Auto) 1.4, Basophils (%) (Auto) 3.3H, Sodium Level 140, Potassium Level 4.0, Chloride Level 93L, Carbon Dioxide Level 29, Anion Gap 18H, Blood Urea Nitrogen 80H, Creatinine 7.2H, Estimat Glomerular Filtration Rate 7.6, Glucose Level 315H, Calcium Level 10.0, Random Vancomycin Level 22.5 09/22/16 09:45: Prothrombin Time 12.0H, Prothromb Time International Ratio 1.1, Levetiracetam ( Keppra) Level [Pending] 09/22/16 12:55: White Blood Count 13.9H, Red Blood Count 2.80L, Hemoglobin 8.4L, Hematocrit 26.8L, Mean Corpuscular Volume 96, Mean Corpuscular Hemoglobin 30.0, Mean Corpuscular Hemoglobin Concent 31.4L, Red Cell Distribution Width 15.4H, Platelet Count 256, Mean Platelet Volume 6.7, Neutrophils (%) (Auto) 71.2, Lymphocytes (%) (Auto) 13.5L, Monocytes (%) (Auto) 10.7H, Eosinophils (%) (Auto ) 1.3, Basophils (%) (Auto) 3.2H Height (Feet): 5 Height (Inches): 6.00 Weight (Pounds): 171 Objective Intubated and unresponsive NCAT, (+) feeding tube and ETT supple Coarse BS and occ wheeze RR soft ND abdomen no edema ANNE CURRAN Sep 22, 2016 21:33
--- NOTE | 2016-09-22 22:40 | Diagnostic Imaging Report ---
APPROVED REPORT CPT Code: 58898 Present Symptoms Upper Extremity Pain: Right Upper Extremity Edema: Right Comments: Pt has permanent catheter for hemodialysis. RIGHT UPPER EXTREMITY: Venous imaging reveals patency of the internal jugular, subclavian, axillary, brachial, radial and ulnar veins. The basilic vein is also patent. Doppler indicates normal spontaneous flow within these venous segments. The left cephalic vein is thrombosed from the distal upper arm to the proximal forearm. There is no evidence of acute DVT. RACHEL Medrano was informed of abnormal results at 19:45 hrs.
[2016-09-23] VITALS (24 sets, daily range): BP systolic 93–161; BP diastolic 31–72
[2016-09-23] MEDS: Metoclopramide 10mg/2ml Inj IVP SCH ×4 (04:19→22:26)
[2016-09-23] MEDS: Dyna-Hex 2% Top Sol 8oz TOPIC SCH (04:20)
[2016-09-23 04:56] LABS: BASOPHILS % (AUTO) 4.9 % (0.0-2.0); EOSINOPHILS % (AUTO) 1.3 % (0.0-3.0); LYMPHOCYTES % (AUTO) 9.7 % (20.0-45.0); MEAN CORPUSCULAR HEMOGLOBIN 30.1 PG (27.0-31.0); MEAN CORPUSCULAR HGB CONC 31.3 G/DL (32.0-36.0); MEAN CORPUSCULAR VOLUME 96 FL (80-99); MEAN PLATELET VOLUME 6.6 FL (6.5-10.1); MONOCYTES % (AUTO) 11.1 % (1.0-10.0); PLATELET COUNT 271 K/UL (150-450); RED BLOOD COUNT 2.86 M/UL (4.70-6.10); RED CELL DISTRIBUTION WIDTH 15.5 % (11.6-14.8); WHITE BLOOD COUNT 17.1 K/UL (4.8-10.8)
[2016-09-23 05:15] LABS: CALCIUM 10.6 mg/dL (8.6-10.2); CREATININE 8.5 mg/dL (0.7-1.2); GLOMERULAR FILTRATION RATE 6.3 mL/min (>60); POTASSIUM 3.3 mEQ/L (3.4-4.9)
[2016-09-23] MEDS: NovoLOG Insulin Flexpen SUBQ SCH ×3 (05:46→17:28)
[2016-09-23] MEDS ORDERED: ceFAZolin sod 1 GM in D5W 55 ML IVPB ONE (06:00)
[2016-09-23] MEDS ORDERED: NS 550ML IV ONE (07:05)
--- NOTE | 2016-09-23 07:39 | General Progress Note ---
Assessment/Plan Assessment/Plan Assessment - TF intolerance , N/V - presumed DM gastroparesis - can convert G to GJ tube in future if gastroparesis persists - encephalopathy - resp failure - DM with glucose in 250 - 350 range - needs better control - renal failure - Anemia, presumed due to renal failure Recommendations - BID IV PPI - Reglan / bethanecol - TF. - Monitor residuals - consider Endo eval - PEG today - Hold insulin while NPO since glucose level much lower this am Subjective Allergies: Coded Allergies: NIACIN (Verified Allergy, Unknown, ITCHING, 01/30/12) Subjective Above noted seen in ICU d/w RN NPO for PEG Objective Last 24 Hour Vital Signs Date Time Temp Pulse Resp B/P Pulse Ox O2 Delivery O2 Flow Rate FiO2 09/23/16 07:00 86 20 158/44 100 Mechanical Ventilator 30 09/23/16 06:53 95 32 30 09/23/16 06:00 89 20 138/31 100 Mechanical Ventilator 30 09/23/16 05:14 87 23 30 09/23/16 05:00 89 20 128/38 100 Mechanical Ventilator 30 09/23/16 04:00 98.9 86 22 161/42 99 Mechanical Ventilator 30 09/23/16 04:00 86 09/23/16 04:00 30 09/23/16 03:22 87 22 30 09/23/16 03:00 84 20 128/38 100 Mechanical Ventilator 30 09/23/16 02:00 85 20 156/38 100 Mechanical Ventilator 30 09/23/16 01:09 85 18 30 09/23/16 01:00 87 20 126/35 100 Mechanical Ventilator 30 09/23/16 00:00 30 09/23/16 00:00 87 09/23/16 00:00 99.1 87 22 141/39 100 Mechanical Ventilator 30 09/22/16 23:09 89 22 30 09/22/16 23:00 88 20 132/45 97 Mechanical Ventilator 30 09/22/16 22:00 83 21 104/36 96 Mechanical Ventilator 30 09/22/16 21:24 89 28 30 09/22/16 21:00 86 21 81/27 96 Mechanical Ventilator 30 09/22/16 20:35 98.6 09/22/16 20:00 88 20 119/44 97 Mechanical Ventilator 30 09/22/16 20:00 95 09/22/16 20:00 30 09/22/16 19:00 100.4 92 30 113/37 98 Mechanical Ventilator 30 09/22/16 18:57 93 22 30 09/22/16 18:00 92 30 116/38 96 Mechanical Ventilator 29 09/22/16 17:19 87/26 09/22/16 17:00 99.0 82 32 87/26 100 Mechanical Ventilator 30 09/22/16 16:42 82 15 30 09/22/16 16:00 30 09/22/16 16:00 84 09/22/16 16:00 87 30 95/29 100 Mechanical Ventilator 30 09/22/16 15:00 85 28 124/41 100 Mechanical Ventilator 30 09/22/16 14:30 84 15 30 09/22/16 14:00 84 24 150/47 100 Mechanical Ventilator 30 09/22/16 13:00 77 26 82/30 98 Mechanical Ventilator 30 09/22/16 12:38 80 16 30 09/22/16 12:00 98.8 83 27 156/48 99 Mechanical Ventilator 30 09/22/16 12:00 78 09/22/16 12:00 30 09/22/16 11:08 83 15 30 09/22/16 11:00 82 18 106/40 99 Mechanical Ventilator 30 09/22/16 10:00 82 18 106/40 99 Mechanical Ventilator 30 09/22/16 09:21 127/41 09/22/16 09:00 85 18 127/41 100 Mechanical Ventilator 30 09/22/16 09:00 85 127/41 09/22/16 08:50 85 16 30 09/22/16 08:00 99.0 84 17 80/38 100 Mechanical Ventilator 30 09/22/16 08:00 30 09/22/16 08:00 88 Intake and Output 09/22/16 09/23/16 19:00 07:00 Intake Total 350 ml 60 ml Balance 350 ml 60 ml Tube Feeding 240 ml Other 110 ml 60 ml # Bowel Movements 5 3 Laboratory Tests 09/22/16 09:45: Prothrombin Time 12.0H, Prothromb Time International Ratio 1.1, Levetiracetam ( Keppra) Level [Pending] 09/22/16 12:55: White Blood Count 13.9H, Red Blood Count 2.80L, Hemoglobin 8.4L, Hematocrit 26.8L, Mean Corpuscular Volume 96, Mean Corpuscular Hemoglobin 30.0, Mean Corpuscular Hemoglobin Concent 31.4L, Red Cell Distribution Width 15.4H, Platelet Count 256, Mean Platelet Volume 6.7, Neutrophils (%) (Auto) 71.2, Lymphocytes (%) (Auto) 13.5L, Monocytes (%) (Auto) 10.7H, Eosinophils (%) (Auto ) 1.3, Basophils (%) (Auto) 3.2H 09/23/16 04:15: White Blood Count 17.1H, Red Blood Count 2.86L, Hemoglobin 8.6L, Hematocrit 27.4L, Mean Corpuscular Volume 96, Mean Corpuscular Hemoglobin 30.1, Mean Corpuscular Hemoglobin Concent 31.3L, Red Cell Distribution Width 15.5H, Platelet Count 271, Mean Platelet Volume 6.6, Neutrophils (%) (Auto) 73.0, Lymphocytes (%) (Auto) 9.7L, Monocytes (%) (Auto) 11.1H, Eosinophils (%) (Auto) 1.3, Basophils (%) (Auto) 4.9H, Sodium Level 145, Potassium Level 3.3L, Chloride Level 92L, Carbon Dioxide Level 29, Anion Gap 24H, Blood Urea Nitrogen 98H, Creatinine 8.5H, Estimat Glomerular Filtration Rate 6.3, Glucose Level 80# , Calcium Level 10.6H Height (Feet): 5 Height (Inches): 6.00 Weight (Pounds): 172 Objective Intubated and unresponsive NCAT, (+)OGT and ETT supple Coarse BS RR soft ND abdomen, (+) umbilical hernia w/o change no edema unresponsive ANNE CURRAN Sep 23, 2016 07:39
--- NOTE | 2016-09-23 07:40 | Endoscopy Procedure Note ---
Endoscopy Procedure Note Indication for Procedure: dysphagia Procedures Performed: EGD, PEG Operative Findings/Diagnosis: PEG placed Specimen: none Pt Tolerated Procedure Well: Yes Estimated Blood Loss: minimal Anesthesia: MAC Medication Given: see anesthesia record Implant(s) used?: No 50 yrs or older w/o bx or poly: Not Applicable 10yrs. F/U not recommended: Not Applicable If not recommended, why?: ANNE CURRAN Sep 23, 2016 07:40
--- NOTE | 2016-09-23 07:44 | Brief Operative Note ---
Immediate Post Operative Note Operative Note Chief Complaint: dysphagia Pre-op Diagnosis: s/p PEG Procedure: EGD/PEG Post-op Diagnosis: PEG placed, Marking at 5-6 cm on outside, likely due to central obesity. Will check CT to confirm placement Post-op Diagnosis: same as pre-op Surgeon: jackelin Anesthesiologist: see report Anesthesia: MAC, moderate sedation Specimen: none Complications: none Condition: stable Estimated Blood Loss: minimal Drains: none Implant(s) used?: No ANNE CURRAN Sep 23, 2016 07:44
--- NOTE | 2016-09-23 07:54 | Anethesia Preoperative Eval ---
Anesthesia Pre-op PMH/ROS General Date of Evaluation: Sep 23, 2016 Time of Evaluation: 07:00 Anesthesiologist: jasmin ASA Score: ASA 4 Mallampati Score Class I : Soft palate, uvula, fauces, pillars visible Class II: Soft palate, uvula, fauces visible Class III: Soft palate, base of uvula visible Class IV: Only hard plate visible Surgeon: edwige Diagnosis: failure to thrive Surgical Procedure: EGD/PEG Anesthesia History: none Family History: no anesthesia problems Allergies: Coded Allergies: NIACIN (Verified Allergy, Unknown, ITCHING, 01/30/12) Medications: see eMAR Past Medical History Cardiovascular: Reports: HTN, other - CHF Pulmonary: Reports: COPD Gastrointestinal/Genitourinary: Reports: ESRD, other - ESRD Neurologic/Psychiatric: Reports: other - anoxic encephalopathy HEENT: Denies: [place] (L), [place] (R), cataract (L), cataract (R), glaucoma, other Hematology/Immune: Reports: anemia Musculoskeletal/Integumentary: Denies: DDD, DJD, OA, RA, edema, other PMH Narrative: s/p Cardiac Arrest Anesthesia Pre-op Phys. Exam Physician Exam Last Vital Signs Date Time Temp Pulse Resp B/P Pulse Ox O2 Delivery O2 Flow Rate FiO2 09/23/16 07:00 86 20 158/44 100 Mechanical Ventilator 30 09/23/16 04:00 98.9 09/21/16 11:18 4.0 Constitutional: NAD Neurologic: other - anoxic encephalopathy Cardiovascular: RRR Respiratory: other - Mechanically ventilation/ AC 30% 12 600 Gastrointestinal: S/NT/ND Airway Exam Mallampati Classification 3 MO: limited ROM: limited Dentures: no lower, no upper Anesthesia Pre-op A/P Labs Hematology Test 09/22/16 12:55 09/23/16 04:15 White Blood Count 13.9 K/UL (4.8-10.8) H 17.1 K/UL (4.8-10.8) H Red Blood Count 2.80 M/UL (4.70-6.10) L 2.86 M/UL (4.70-6.10) L Hemoglobin 8.4 G/DL (14.2-18.0) L 8.6 G/DL (14.2-18.0) L Hematocrit 26.8 % (42.0-52.0) L 27.4 % (42.0-52.0) L Mean Corpuscular Volume 96 FL (80-99) 96 FL (80-99) Mean Corpuscular Hemoglobin 30.0 PG (27.0-31.0) 30.1 PG (27.0-31.0) Mean Corpuscular Hemoglobin Concent 31.4 G/DL (32.0-36.0) L 31.3 G/DL (32.0-36.0) L Red Cell Distribution Width 15.4 % (11.6-14.8) H 15.5 % (11.6-14.8) H Platelet Count 256 K/UL (150-450) 271 K/UL (150-450) Mean Platelet Volume 6.7 FL (6.5-10.1) 6.6 FL (6.5-10.1) Neutrophils (%) (Auto) 71.2 % (45.0-75.0) 73.0 % (45.0-75.0) Lymphocytes (%) (Auto) 13.5 % (20.0-45.0) L 9.7 % (20.0-45.0) L Monocytes (%) (Auto) 10.7 % (1.0-10.0) H 11.1 % (1.0-10.0) H Eosinophils (%) (Auto) 1.3 % (0.0-3.0) 1.3 % (0.0-3.0) Basophils (%) (Auto) 3.2 % (0.0-2.0) H 4.9 % (0.0-2.0) H Coagulation Test 09/22/16 09:45 Prothrombin Time 12.0 SEC (9.30-11.50) H Prothromb Time International Ratio 1.1 (0.9-1.1) Chemistry Test 09/23/16 04:15 Sodium Level 145 mEQ/L (135-145) Potassium Level 3.3 mEQ/L (3.4-4.9) L Chloride Level 92 mEQ/L (98-107) L Carbon Dioxide Level 29 mEQ/L (20-30) Anion Gap 24 (5-15) H Blood Urea Nitrogen 98 mg/dL (7-23) H Creatinine 8.5 mg/dL (0.7-1.2) H Estimat Glomerular Filtration Rate 6.3 mL/min (>60) Glucose Level 80 mg/dL (74-106) # Calcium Level 10.6 mg/dL (8.6-10.2) H Studies Pre-op Studies: EKG - sr Risk Assessment & Plan Assessment: responsive to painful stimuli Plan: mac Status Change Before Surgery: No Pre-Antibiotics Drug: ancef Given Within 1 Hr of Incision: Yes Time Given: 06:00 JACEY GALLAGHER CRNA Sep 23, 2016 07:54
--- NOTE | 2016-09-23 07:55 | 48 Hour Post Anesthesia Eval ---
Post Anesthesia Evaluation Procedure: EGD/PEG Date of Evaluation: Sep 23, 2016 Time of Evaluation: 07:54 Blood Pressure Systolic: 150 0: 87 Pulse Rate: 74 Respiratory Rate: 20 O2 Sat by Pulse Oximetry: 100 Airway: other Nausea: No Vomiting: No Hydration Status: adequate Cardiopulmonary Status: stable Mental Status/LOC: patient returned to baseline Post-Anesthesia Complications: none Follow-up care needed: N/A JACEY GALLAGHER CRNA Sep 23, 2016 07:55
--- NOTE | 2016-09-23 07:56 | Immediate Post-Op Evaluation ---
Immediate Post-Op Evalulation Immediate Post-Op Evalulation Procedure: EGD/PEG Date of Evaluation: Sep 23, 2016 Time of Evaluation: 07:28 IV Fluids: 100 Blood Pressure Systolic: 90 Blood Pressure Diastolic: 50 Pulse Rate: 70 Respiratory Rate: 12 O2 Sat by Pulse Oximetry: 100 Nausea: No Vomiting: No Complications none Patient Status: reacts, ventilated Hydration Status: adequate Drug: ancef Given Within 1 Hr of Incision: Yes Time Given: 06:00 JACEY GALLAGHER CRNA Sep 23, 2016 07:56
[2016-09-23] MEDS ORDERED: Phenytoin 250mg/5ml vial ONE (08:05)
[2016-09-23] MEDS: Bethanechol 10mg Tab ORAL SCH ×3 (08:13→17:24)
[2016-09-23] MEDS: Pantoprazole Inj IVP SCH ×2 (08:13→21:22)
[2016-09-23] MEDS: Heparin 5000 units/ml inj SUBQ SCH ×2 (08:16→21:23)
[2016-09-23] MEDS: Minoxidil 10mg tab GT SCH ×2 (08:40→17:24)
[2016-09-23] MEDS: Phenytoin Susp 100mg/4ml GT SCH ×2 (08:40→21:22)
[2016-09-23] MEDS: Valproic Acid 250mg/5ml Liquid GT SCH ×2 (08:41→21:22)
[2016-09-23] MEDS ORDERED: Dyna-Hex 2% Top Sol 8oz TOPIC SCH (09:00)
[2016-09-23] MEDS ORDERED: D5W 250 ML IVPB SCH (09:00)
[2016-09-23] MEDS: D5W 275 ML IV SCH (10:05)
--- NOTE | 2016-09-23 10:12 | Pulmonology Progress Note ---
Assessment/Plan Assessment/Plan 1. Status post cardiac arrest. 2. Renal failure with hyperkalemia. 3. Respiratory failure. 4. Anoxic encephalopathy. 5. Status epilepticus 6. Coronary artery disease. 7. History of cardiomyopathy. 8. Diabetes. 9. Hypertension. trach tomorrow PEG today no change in vent, wean after trach nebs and suction monitor BP, pressors if MAP less than 65 mmhg wound care TF prognosis guarded DVT prophylaxis HD per renal continue abx Subjective Interval Events: Worsening leucocytosis; remains on vent; for PEG today Constitutional: Reports: no symptoms HEENT: Repors: no symptoms Respiratory: Reports: no symptoms Cardiovascular: Reports: no symptoms Gastrointestinal/Abdominal: Reports: no symptoms Genitourinary: Reports: no symptoms Allergies: Coded Allergies: NIACIN (Verified Allergy, Unknown, ITCHING, 01/30/12) Objective Last 24 Hour Vital Signs Date Time Temp Pulse Resp B/P Pulse Ox O2 Delivery O2 Flow Rate FiO2 09/23/16 10:00 85 20 111/41 97 Mechanical Ventilator 30 09/23/16 09:26 88 21 30 09/23/16 09:00 86 24 96/66 100 Mechanical Ventilator 30 09/23/16 08:40 149/57 09/23/16 08:40 87 149/57 09/23/16 08:00 98.3 86 20 134/52 100 Mechanical Ventilator 30 09/23/16 08:00 30 09/23/16 07:56 70 12 100 09/23/16 07:55 74 20 100 09/23/16 07:00 86 20 158/44 100 Mechanical Ventilator 30 09/23/16 06:53 95 32 30 09/23/16 06:00 89 20 138/31 100 Mechanical Ventilator 30 09/23/16 05:14 87 23 30 09/23/16 05:00 89 20 128/38 100 Mechanical Ventilator 30 09/23/16 04:00 98.9 86 22 161/42 99 Mechanical Ventilator 30 09/23/16 04:00 86 09/23/16 04:00 30 09/23/16 03:22 87 22 30 09/23/16 03:00 84 20 128/38 100 Mechanical Ventilator 30 09/23/16 02:00 85 20 156/38 100 Mechanical Ventilator 30 09/23/16 01:09 85 18 30 09/23/16 01:00 87 20 126/35 100 Mechanical Ventilator 30 09/23/16 00:00 30 09/23/16 00:00 87 09/23/16 00:00 99.1 87 22 141/39 100 Mechanical Ventilator 30 09/22/16 23:09 89 22 30 09/22/16 23:00 88 20 132/45 97 Mechanical Ventilator 30 09/22/16 22:00 83 21 104/36 96 Mechanical Ventilator 30 09/22/16 21:24 89 28 30 09/22/16 21:00 86 21 81/27 96 Mechanical Ventilator 30 09/22/16 20:35 98.6 09/22/16 20:00 88 20 119/44 97 Mechanical Ventilator 30 09/22/16 20:00 95 09/22/16 20:00 30 09/22/16 19:00 100.4 92 30 113/37 98 Mechanical Ventilator 30 09/22/16 18:57 93 22 30 09/22/16 18:00 92 30 116/38 96 Mechanical Ventilator 29 09/22/16 17:19 87/26 09/22/16 17:00 99.0 82 32 87/26 100 Mechanical Ventilator 30 09/22/16 16:42 82 15 30 09/22/16 16:00 30 09/22/16 16:00 84 09/22/16 16:00 87 30 95/29 100 Mechanical Ventilator 30 09/22/16 15:00 85 28 124/41 100 Mechanical Ventilator 30 09/22/16 14:30 84 15 30 09/22/16 14:00 84 24 150/47 100 Mechanical Ventilator 30 09/22/16 13:00 77 26 82/30 98 Mechanical Ventilator 30 09/22/16 12:38 80 16 30 09/22/16 12:00 98.8 83 27 156/48 99 Mechanical Ventilator 30 09/22/16 12:00 78 09/22/16 12:00 30 09/22/16 11:08 83 15 30 09/22/16 11:00 82 18 106/40 99 Mechanical Ventilator 30 Intake and Output 09/22/16 09/23/16 19:00 07:00 Intake Total 350 ml 60 ml Balance 350 ml 60 ml Tube Feeding 240 ml Other 110 ml 60 ml # Bowel Movements 5 3 General Appearance: no acute distress HEENT: normocephalic Respiratory/Chest: chest wall non-tender, decreased breath sounds Cardiovascular: normal peripheral pulses, normal rate Abdomen: normal bowel sounds, soft, non tender Extremities: no cyanosis Laboratory Tests 09/22/16 12:55: White Blood Count 13.9H, Red Blood Count 2.80L, Hemoglobin 8.4L, Hematocrit 26.8L, Mean Corpuscular Volume 96, Mean Corpuscular Hemoglobin 30.0, Mean Corpuscular Hemoglobin Concent 31.4L, Red Cell Distribution Width 15.4H, Platelet Count 256, Mean Platelet Volume 6.7, Neutrophils (%) (Auto) 71.2, Lymphocytes (%) (Auto) 13.5L, Monocytes (%) (Auto) 10.7H, Eosinophils (%) (Auto ) 1.3, Basophils (%) (Auto) 3.2H 09/23/16 04:15: White Blood Count 17.1H, Red Blood Count 2.86L, Hemoglobin 8.6L, Hematocrit 27.4L, Mean Corpuscular Volume 96, Mean Corpuscular Hemoglobin 30.1, Mean Corpuscular Hemoglobin Concent 31.3L, Red Cell Distribution Width 15.5H, Platelet Count 271, Mean Platelet Volume 6.6, Neutrophils (%) (Auto) 73.0, Lymphocytes (%) (Auto) 9.7L, Monocytes (%) (Auto) 11.1H, Eosinophils (%) (Auto) 1.3, Basophils (%) (Auto) 4.9H, Sodium Level 145, Potassium Level 3.3L, Chloride Level 92L, Carbon Dioxide Level 29, Anion Gap 24H, Blood Urea Nitrogen 98H, Creatinine 8.5H, Estimat Glomerular Filtration Rate 6.3, Glucose Level 80# , Calcium Level 10.6H Current Medications Medications (Trade) Dose Ordered Sig/Mark Route PRN Reason Start Time Stop Time Status Last Admin Dose Admin Acetaminophen (Tylenol) 650 mg Q4H PRN ORAL Mild Pain (Pain Scale 1-3) 09/06/16 23:00 10/06/16 22:59 09/22/16 19:36 Amlodipine Besylate (Norvasc) 10 mg DAILY GT 09/15/16 10:56 10/07/16 08:59 09/23/16 08:40 Bethanechol Chloride (Urecholine) 10 mg THREE TIMES A DAY ORAL 09/21/16 13:00 10/21/16 12:59 09/23/16 08:13 Chlorhexidine Gluconate 1 applic 1 applic DAILY TOPIC 09/23/16 09:00 10/23/16 08:59 09/23/16 04:20 Dextrose (D5W) 275 ml @ 30 mls/hr DAILY IV 09/23/16 09:50 10/23/16 09:49 09/23/16 10:05 Dextrose (Dextrose 50%) STAT PRN IV Hypoglycemia 09/06/16 23:00 10/06/16 22:59 Heparin Sodium (Porcine) (Heparin 5000 units/ml) 5,000 units EVERY 12 HOURS SUBQ 09/08/16 21:00 10/08/16 20:59 09/23/16 08:16 Insulin Aspart (NovoLOG) EVERY 6 HOURS SUBQ 09/07/16 18:00 10/07/16 17:59 09/22/16 23:24 Levofloxacin (Levaquin) 500 mg Q48H NG 09/24/16 18:00 10/01/16 17:59 Metoclopramide HCl (Reglan) 5 mg Q6H IVP 09/15/16 22:30 10/15/16 22:29 09/23/16 09:52 Minoxidil (Loniten) 15 mg BID GT 09/15/16 10:57 10/13/16 17:59 09/23/16 08:40 Pantoprazole (Protonix) 40 mg EVERY 12 HOURS IVP 09/15/16 22:30 10/15/16 22:29 09/23/16 08:13 Phenytoin (Dilantin) 300 mg Q12HR GT 09/18/16 21:00 10/18/16 20:59 09/23/16 08:40 Phenytoin/Sodium Chloride (Dilantin/Sodium Chloride) 120 ml @ 120 mls/hr POSTHD IVPB 09/17/16 21:00 10/17/16 20:59 09/20/16 19:30 Polyethylene Glycol (Miralax) 17 gm DAILYPRN PRN ORAL Constipation 09/06/16 23:00 10/06/16 22:59 Valproic Acid (Depakene) 1,500 mg Q12HR GT 09/17/16 21:00 10/17/16 20:59 09/23/16 08:41 Valproic Acid 1000 mg 1,000 mg POSTHD GT 09/17/16 18:00 10/17/16 17:59 09/20/16 17:28 Delvin Bryant MD Sep 23, 2016 10:12
--- NOTE | 2016-09-23 11:00 | Operative Note - Dictated ---
DATE OF OPERATION: 09/23/2016 GASTROENTEROLOGY PROCEDURE REPORT PROCEDURE: Upper gastroendoscopy with gastrostomy tube placement. SURGEON: Natalie Arias M.D. ANESTHESIA: Please see the separate anesthesiologist notes for details. PRE-ENDOSCOPIC DIAGNOSIS: Dysphagia. POST-ENDOSCOPIC DIAGNOSIS: Status post gastrostomy tube placement. PROCEDURE: The procedure, its risks, indications, alternatives, and possible complications including, but not limited to, bleeding, infection, perforation, , and anesthesia complications were explained the patient's family. Informed consent was obtained. The patient was then sedated in the supine position. A diagnostic upper endoscope was introduced through the oropharynx and advanced to the duodenum. The endoscope was then gradually withdrawn. The mucosa examined carefully. Examination of the upper gastric mucosa did not reveal any significant abnormalities. The outside skin was sterilely prepared, anesthetized and incised. The trocar needle was placed into the gastric lumen using a single pass. The gastrostomy catheter was then placed using the standard pull technique. The outside marking and gastrostomy catheter was approximately 5 to 6 cm level. The position was verified endoscopically. The endoscope was removed. The patient was sent to recovery in good condition. ASSESSMENT: This patient is status post gastrostomy tube placement, which can be used for medications today and for tube feedings tomorrow. The outside marking of the gastrostomy catheter was then approximately 5 to 6 cm, but the patient does appear to have some degree of central obesity, which may explain this finding. However a CT scan will be done to verify the gastrostomy tube placement given the markings observation. RECOMMENDATIONS: 1. Keep the patient NPO except medications today. 2. Stat CT scan of the abdomen to verify placement. 3. Anticipate restarting feeding tomorrow. Natalie Arias M.D. DR: Nena JOB#: [id number] CC:
--- NOTE | 2016-09-23 12:24 | Infectious Diseases Prog Note ---
Assessment/Plan Assessment/Plan antibiotics : levoquin A 1. enterobacter pneumonia 2. respiratory failure 3. renal failure 4. leucocytosis 5. s/p cardiac arrest P 1. continue levoquin 2. will follow up cultures Subjective ROS Limited/Unobtainable: Yes Allergies: Coded Allergies: NIACIN (Verified Allergy, Unknown, ITCHING, 01/30/12) Objective Vital Signs Last 24 Hour Vital Signs Date Time Temp Pulse Resp B/P Pulse Ox O2 Delivery O2 Flow Rate FiO2 09/23/16 12:00 98.9 86 23 101/35 100 Mechanical Ventilator 30 09/23/16 12:00 30 09/23/16 11:18 84 17 30 09/23/16 11:00 85 18 125/40 98 Mechanical Ventilator 30 09/23/16 10:00 85 20 111/41 97 Mechanical Ventilator 30 09/23/16 09:26 88 21 30 09/23/16 09:00 86 24 96/66 100 Mechanical Ventilator 30 09/23/16 08:40 149/57 09/23/16 08:40 87 149/57 09/23/16 08:00 98.3 86 20 134/52 100 Mechanical Ventilator 30 09/23/16 08:00 91 09/23/16 08:00 30 09/23/16 07:56 70 12 100 09/23/16 07:55 74 20 100 09/23/16 07:00 86 20 158/44 100 Mechanical Ventilator 30 09/23/16 06:53 95 32 30 09/23/16 06:00 89 20 138/31 100 Mechanical Ventilator 30 09/23/16 05:14 87 23 30 09/23/16 05:00 89 20 128/38 100 Mechanical Ventilator 30 09/23/16 04:00 98.9 86 22 161/42 99 Mechanical Ventilator 30 09/23/16 04:00 86 09/23/16 04:00 30 09/23/16 03:22 87 22 30 09/23/16 03:00 84 20 128/38 100 Mechanical Ventilator 30 09/23/16 02:00 85 20 156/38 100 Mechanical Ventilator 30 09/23/16 01:09 85 18 30 09/23/16 01:00 87 20 126/35 100 Mechanical Ventilator 30 09/23/16 00:00 30 09/23/16 00:00 87 09/23/16 00:00 99.1 87 22 141/39 100 Mechanical Ventilator 30 09/22/16 23:09 89 22 30 09/22/16 23:00 88 20 132/45 97 Mechanical Ventilator 30 09/22/16 22:00 83 21 104/36 96 Mechanical Ventilator 30 09/22/16 21:24 89 28 30 09/22/16 21:00 86 21 81/27 96 Mechanical Ventilator 30 09/22/16 20:35 98.6 09/22/16 20:00 88 20 119/44 97 Mechanical Ventilator 30 09/22/16 20:00 95 09/22/16 20:00 30 09/22/16 19:00 100.4 92 30 113/37 98 Mechanical Ventilator 30 09/22/16 18:57 93 22 30 09/22/16 18:00 92 30 116/38 96 Mechanical Ventilator 29 09/22/16 17:19 87/26 09/22/16 17:00 99.0 82 32 87/26 100 Mechanical Ventilator 30 09/22/16 16:42 82 15 30 09/22/16 16:00 30 09/22/16 16:00 84 09/22/16 16:00 87 30 95/29 100 Mechanical Ventilator 30 09/22/16 15:00 85 28 124/41 100 Mechanical Ventilator 30 09/22/16 14:30 84 15 30 09/22/16 14:00 84 24 150/47 100 Mechanical Ventilator 30 09/22/16 13:00 77 26 82/30 98 Mechanical Ventilator 30 09/22/16 12:38 80 16 30 Height (Feet): 5 Height (Inches): 6.00 Weight (Pounds): 172 HEENT: other - intubated Respiratory/Chest: lungs clear Cardiovascular: normal rate, regular rhythm, no gallop/murmur Abdomen: soft, non tender, other - GT Extremities: no edema Laboratory Tests Test 09/22/16 12:55 09/23/16 04:15 White Blood Count 13.9 K/UL (4.8-10.8) H 17.1 K/UL (4.8-10.8) H Red Blood Count 2.80 M/UL (4.70-6.10) L 2.86 M/UL (4.70-6.10) L Hemoglobin 8.4 G/DL (14.2-18.0) L 8.6 G/DL (14.2-18.0) L Hematocrit 26.8 % (42.0-52.0) L 27.4 % (42.0-52.0) L Mean Corpuscular Volume 96 FL (80-99) 96 FL (80-99) Mean Corpuscular Hemoglobin 30.0 PG (27.0-31.0) 30.1 PG (27.0-31.0) Mean Corpuscular Hemoglobin Concent 31.4 G/DL (32.0-36.0) L 31.3 G/DL (32.0-36.0) L Red Cell Distribution Width 15.4 % (11.6-14.8) H 15.5 % (11.6-14.8) H Platelet Count 256 K/UL (150-450) 271 K/UL (150-450) Mean Platelet Volume 6.7 FL (6.5-10.1) 6.6 FL (6.5-10.1) Neutrophils (%) (Auto) 71.2 % (45.0-75.0) 73.0 % (45.0-75.0) Lymphocytes (%) (Auto) 13.5 % (20.0-45.0) L 9.7 % (20.0-45.0) L Monocytes (%) (Auto) 10.7 % (1.0-10.0) H 11.1 % (1.0-10.0) H Eosinophils (%) (Auto) 1.3 % (0.0-3.0) 1.3 % (0.0-3.0) Basophils (%) (Auto) 3.2 % (0.0-2.0) H 4.9 % (0.0-2.0) H Sodium Level 145 mEQ/L (135-145) Potassium Level 3.3 mEQ/L (3.4-4.9) L Chloride Level 92 mEQ/L (98-107) L Carbon Dioxide Level 29 mEQ/L (20-30) Anion Gap 24 (5-15) H Blood Urea Nitrogen 98 mg/dL (7-23) H Creatinine 8.5 mg/dL (0.7-1.2) H Estimat Glomerular Filtration Rate 6.3 mL/min (>60) Glucose Level 80 mg/dL (74-106) # Calcium Level 10.6 mg/dL (8.6-10.2) H LEWIS ADAMS Sep 23, 2016 12:24
--- NOTE | 2016-09-23 12:53 | Nephrology Progress Note ---
Assessment/Plan Problem List: (1) ESRD (end stage renal disease) (2) Anoxic encephalopathy syndrome (3) Respiratory failure with hypoxia (4) CHF (congestive heart failure) (5) HTN (hypertension) Assessment R arm edema Plan HD as tolerated Vent support PEG done Trach on Thursday follow labs TF tomorrow Discussed with RN Subjective Subjective remains intubated no improvement in MS seen on dialysis Objective Objective Last 24 Hour Vital Signs Date Time Temp Pulse Resp B/P Pulse Ox O2 Delivery O2 Flow Rate FiO2 09/23/16 12:00 98.9 86 23 101/35 100 Mechanical Ventilator 30 09/23/16 12:00 30 09/23/16 12:00 84 09/23/16 11:18 84 17 30 09/23/16 11:00 85 18 125/40 98 Mechanical Ventilator 30 09/23/16 10:00 85 20 111/41 97 Mechanical Ventilator 30 09/23/16 09:26 88 21 30 09/23/16 09:00 86 24 96/66 100 Mechanical Ventilator 30 09/23/16 08:40 149/57 09/23/16 08:40 87 149/57 09/23/16 08:00 98.3 86 20 134/52 100 Mechanical Ventilator 30 09/23/16 08:00 91 09/23/16 08:00 30 09/23/16 07:56 70 12 100 09/23/16 07:55 74 20 100 09/23/16 07:00 86 20 158/44 100 Mechanical Ventilator 30 09/23/16 06:53 95 32 30 09/23/16 06:00 89 20 138/31 100 Mechanical Ventilator 30 09/23/16 05:14 87 23 30 09/23/16 05:00 89 20 128/38 100 Mechanical Ventilator 30 09/23/16 04:00 98.9 86 22 161/42 99 Mechanical Ventilator 30 09/23/16 04:00 86 09/23/16 04:00 30 09/23/16 03:22 87 22 30 09/23/16 03:00 84 20 128/38 100 Mechanical Ventilator 30 09/23/16 02:00 85 20 156/38 100 Mechanical Ventilator 30 09/23/16 01:09 85 18 30 09/23/16 01:00 87 20 126/35 100 Mechanical Ventilator 30 09/23/16 00:00 30 09/23/16 00:00 87 09/23/16 00:00 99.1 87 22 141/39 100 Mechanical Ventilator 30 09/22/16 23:09 89 22 30 09/22/16 23:00 88 20 132/45 97 Mechanical Ventilator 30 09/22/16 22:00 83 21 104/36 96 Mechanical Ventilator 30 09/22/16 21:24 89 28 30 09/22/16 21:00 86 21 81/27 96 Mechanical Ventilator 30 09/22/16 20:35 98.6 09/22/16 20:00 88 20 119/44 97 Mechanical Ventilator 30 09/22/16 20:00 95 09/22/16 20:00 30 09/22/16 19:00 100.4 92 30 113/37 98 Mechanical Ventilator 30 09/22/16 18:57 93 22 30 09/22/16 18:00 92 30 116/38 96 Mechanical Ventilator 29 09/22/16 17:19 87/26 09/22/16 17:00 99.0 82 32 87/26 100 Mechanical Ventilator 30 09/22/16 16:42 82 15 30 09/22/16 16:00 30 09/22/16 16:00 84 09/22/16 16:00 87 30 95/29 100 Mechanical Ventilator 30 09/22/16 15:00 85 28 124/41 100 Mechanical Ventilator 30 09/22/16 14:30 84 15 30 09/22/16 14:00 84 24 150/47 100 Mechanical Ventilator 30 09/22/16 13:00 77 26 82/30 98 Mechanical Ventilator 30 Intake and Output 09/22/16 09/23/16 19:00 07:00 Intake Total 350 ml 60 ml Balance 350 ml 60 ml Tube Feeding 240 ml Other 110 ml 60 ml # Bowel Movements 5 3 Laboratory Tests 09/22/16 12:55: White Blood Count 13.9H, Red Blood Count 2.80L, Hemoglobin 8.4L, Hematocrit 26.8L, Mean Corpuscular Volume 96, Mean Corpuscular Hemoglobin 30.0, Mean Corpuscular Hemoglobin Concent 31.4L, Red Cell Distribution Width 15.4H, Platelet Count 256, Mean Platelet Volume 6.7, Neutrophils (%) (Auto) 71.2, Lymphocytes (%) (Auto) 13.5L, Monocytes (%) (Auto) 10.7H, Eosinophils (%) (Auto ) 1.3, Basophils (%) (Auto) 3.2H 09/23/16 04:15: White Blood Count 17.1H, Red Blood Count 2.86L, Hemoglobin 8.6L, Hematocrit 27.4L, Mean Corpuscular Volume 96, Mean Corpuscular Hemoglobin 30.1, Mean Corpuscular Hemoglobin Concent 31.3L, Red Cell Distribution Width 15.5H, Platelet Count 271, Mean Platelet Volume 6.6, Neutrophils (%) (Auto) 73.0, Lymphocytes (%) (Auto) 9.7L, Monocytes (%) (Auto) 11.1H, Eosinophils (%) (Auto) 1.3, Basophils (%) (Auto) 4.9H, Sodium Level 145, Potassium Level 3.3L, Chloride Level 92L, Carbon Dioxide Level 29, Anion Gap 24H, Blood Urea Nitrogen 98H, Creatinine 8.5H, Estimat Glomerular Filtration Rate 6.3, Glucose Level 80# , Calcium Level 10.6H Height (Feet): 5 Height (Inches): 6.00 Weight (Pounds): 172 Cardiovascular: normal rate Respiratory/Chest: rhonchi - bilaterally Extremities: trace edema CANDICE BREAUX Sep 23, 2016 12:53
--- NOTE | 2016-09-23 14:53 | Anethesia Preoperative Eval ---
Anesthesia Pre-op PMH/ROS General Date of Evaluation: Sep 23, 2016 Time of Evaluation: 14:49 Anesthesiologist: Richie ASA Score: ASA 4 Mallampati Score Class I : Soft palate, uvula, fauces, pillars visible Class II: Soft palate, uvula, fauces visible Class III: Soft palate, base of uvula visible Class IV: Only hard plate visible Mallampati Classification: Class III Surgeon: Corina Diagnosis: Respiratory failure Surgical Procedure: Tracheostomy Anesthesia History: none Family History: no anesthesia problems Allergies: Coded Allergies: NIACIN (Verified Allergy, Unknown, ITCHING, 01/30/12) Medications: see eMAR Past Medical History Cardiovascular: Reports: HTN, other - CHF, Denies: CAD, [place], arrhythmia, valve dz Pulmonary: Reports: COPD, other - respiratory failure vent dependent, Denies: ASHLIE, asthma Gastrointestinal/Genitourinary: Reports: ESRD - on HD, GERD, other - BPH Neurologic/Psychiatric: Reports: dementia - mild, Denies: CVA, TIA, depression/anxiety, other Endocrine: Reports: DM, Denies: hypothyroidism, other, steroids HEENT: Denies: ILIAMNA (L), ILIAMNA (R), cataract (L), cataract (R), glaucoma, other Hematology/Immune: Reports: anemia - of chronic d-s, Denies: DVT, bleeding disorder, other Musculoskeletal/Integumentary: Reports: DJD, Denies: DDD, OA, RA, edema, other PMH Narrative: as above PSxH Narrative: see chart Anesthesia Pre-op Phys. Exam Physician Exam Last Vital Signs Date Time Temp Pulse Resp B/P Pulse Ox O2 Delivery O2 Flow Rate FiO2 09/23/16 14:00 84 18 131/41 99 Mechanical Ventilator 09/23/16 12:00 98.9 09/23/16 11:30 4.0 Constitutional: NAD Neurologic: other - unable to obtaine Cardiovascular: RRR Respiratory: other - some wheezing Gastrointestinal: S/NT/ND Airway Exam Mallampati Score: Class III - intubated MO: limited Neck: stif ROM: limited Teeth: missing Dentures: no lower, no upper Anesthesia Pre-op A/P Labs Hematology Test 09/23/16 04:15 White Blood Count 17.1 K/UL (4.8-10.8) H Red Blood Count 2.86 M/UL (4.70-6.10) L Hemoglobin 8.6 G/DL (14.2-18.0) L Hematocrit 27.4 % (42.0-52.0) L Mean Corpuscular Volume 96 FL (80-99) Mean Corpuscular Hemoglobin 30.1 PG (27.0-31.0) Mean Corpuscular Hemoglobin Concent 31.3 G/DL (32.0-36.0) L Red Cell Distribution Width 15.5 % (11.6-14.8) H Platelet Count 271 K/UL (150-450) Mean Platelet Volume 6.6 FL (6.5-10.1) Neutrophils (%) (Auto) 73.0 % (45.0-75.0) Lymphocytes (%) (Auto) 9.7 % (20.0-45.0) L Monocytes (%) (Auto) 11.1 % (1.0-10.0) H Eosinophils (%) (Auto) 1.3 % (0.0-3.0) Basophils (%) (Auto) 4.9 % (0.0-2.0) H Chemistry Test 09/23/16 04:15 Sodium Level 145 mEQ/L (135-145) Potassium Level 3.3 mEQ/L (3.4-4.9) L Chloride Level 92 mEQ/L (98-107) L Carbon Dioxide Level 29 mEQ/L (20-30) Anion Gap 24 (5-15) H Blood Urea Nitrogen 98 mg/dL (7-23) H Creatinine 8.5 mg/dL (0.7-1.2) H Estimat Glomerular Filtration Rate 6.3 mL/min (>60) Glucose Level 80 mg/dL (74-106) # Calcium Level 10.6 mg/dL (8.6-10.2) H Risk Assessment & Plan Assessment: ASA 4 Plan: GA with ETT. Pre-Antibiotics Drug: as scheduled JOSE PATEL M.D. Sep 23, 2016 14:53
--- NOTE | 2016-09-23 17:30 | Internal Med Progress Note ---
Subjective Date of Service: Sep 23, 2016 Physician Name Kartik Clancy Attending Physician Harrison Delatorre Current Medications Medications (Trade) Dose Ordered Sig/Mark Route PRN Reason Start Time Stop Time Status Last Admin Dose Admin Acetaminophen (Tylenol) 650 mg Q4H PRN ORAL Mild Pain (Pain Scale 1-3) 09/06/16 23:00 10/06/16 22:59 09/22/16 19:36 Amlodipine Besylate (Norvasc) 10 mg DAILY GT 09/15/16 10:56 10/07/16 08:59 09/23/16 08:40 Bethanechol Chloride (Urecholine) 10 mg THREE TIMES A DAY ORAL 09/21/16 13:00 10/21/16 12:59 09/23/16 17:24 Chlorhexidine Gluconate 1 applic 1 applic DAILY TOPIC 09/23/16 09:00 10/23/16 08:59 09/23/16 04:20 Dextrose (D5W) 275 ml @ 30 mls/hr DAILY IV 09/23/16 09:50 10/23/16 09:49 09/23/16 10:05 Dextrose (Dextrose 50%) STAT PRN IV Hypoglycemia 09/06/16 23:00 10/06/16 22:59 Heparin Sodium (Porcine) (Heparin 5000 units/ml) 5,000 units EVERY 12 HOURS SUBQ 09/08/16 21:00 10/08/16 20:59 09/23/16 08:16 Insulin Aspart (NovoLOG) EVERY 6 HOURS SUBQ 09/07/16 18:00 10/07/16 17:59 09/22/16 23:24 Levofloxacin (Levaquin) 500 mg Q48H NG 09/24/16 18:00 10/01/16 17:59 Metoclopramide HCl (Reglan) 5 mg Q6H IVP 09/15/16 22:30 10/15/16 22:29 09/23/16 17:25 Minoxidil (Loniten) 15 mg BID GT 09/15/16 10:57 10/13/16 17:59 09/23/16 17:24 Pantoprazole (Protonix) 40 mg EVERY 12 HOURS IVP 09/15/16 22:30 10/15/16 22:29 09/23/16 08:13 Phenytoin (Dilantin) 300 mg Q12HR GT 09/18/16 21:00 10/18/16 20:59 09/23/16 08:40 Phenytoin/Sodium Chloride (Dilantin/Sodium Chloride) 120 ml @ 120 mls/hr POSTHD IVPB 09/17/16 21:00 10/17/16 20:59 09/20/16 19:30 Polyethylene Glycol (Miralax) 17 gm DAILYPRN PRN ORAL Constipation 09/06/16 23:00 10/06/16 22:59 Valproic Acid (Depakene) 1,500 mg Q12HR GT 09/17/16 21:00 10/17/16 20:59 09/23/16 08:41 Valproic Acid 1000 mg 1,000 mg POSTHD GT 09/17/16 18:00 10/17/16 17:59 09/20/16 17:28 Allergies: Coded Allergies: NIACIN (Verified Allergy, Unknown, ITCHING, 01/30/12) ROS Limited/Unobtainable: Yes Subjective 71 YO M admitted with volume overload and respiratory failure. S/P cardiopulmonary arrest. ICU. Intubated and sedated. Cover for Int Med-Dr [place]. S/P PEG 09/23/16; await tracheostomy Objective Last Vital Signs Date Time Temp Pulse Resp B/P Pulse Ox O2 Delivery O2 Flow Rate FiO2 09/23/16 17:24 127/43 09/23/16 17:07 Mechanical Ventilator 4.0 30 09/23/16 16:51 92 26 09/23/16 16:00 98.5 100 Laboratory Tests Test 09/23/16 04:15 White Blood Count 17.1 K/UL (4.8-10.8) H Red Blood Count 2.86 M/UL (4.70-6.10) L Hemoglobin 8.6 G/DL (14.2-18.0) L Hematocrit 27.4 % (42.0-52.0) L Mean Corpuscular Volume 96 FL (80-99) Mean Corpuscular Hemoglobin 30.1 PG (27.0-31.0) Mean Corpuscular Hemoglobin Concent 31.3 G/DL (32.0-36.0) L Red Cell Distribution Width 15.5 % (11.6-14.8) H Platelet Count 271 K/UL (150-450) Mean Platelet Volume 6.6 FL (6.5-10.1) Neutrophils (%) (Auto) 73.0 % (45.0-75.0) Lymphocytes (%) (Auto) 9.7 % (20.0-45.0) L Monocytes (%) (Auto) 11.1 % (1.0-10.0) H Eosinophils (%) (Auto) 1.3 % (0.0-3.0) Basophils (%) (Auto) 4.9 % (0.0-2.0) H Sodium Level 145 mEQ/L (135-145) Potassium Level 3.3 mEQ/L (3.4-4.9) L Chloride Level 92 mEQ/L (98-107) L Carbon Dioxide Level 29 mEQ/L (20-30) Anion Gap 24 (5-15) H Blood Urea Nitrogen 98 mg/dL (7-23) H Creatinine 8.5 mg/dL (0.7-1.2) H Estimat Glomerular Filtration Rate 6.3 mL/min (>60) Glucose Level 80 mg/dL (74-106) # Calcium Level 10.6 mg/dL (8.6-10.2) H Intake and Output 09/22/16 09/23/16 19:00 07:00 Intake Total 350 ml 60 ml Balance 350 ml 60 ml Tube Feeding 240 ml Other 110 ml 60 ml # Bowel Movements 5 3 Objective General Appearance: WD/WN, lethargic EENT: PERRL/EOMI, normal ENT inspection, TMs normal Neck: non-tender, normal alignment, supple Cardiovascular: normal peripheral pulses, normal rate, regular rhythm, no gallop/murmur, no JVD Respiratory/Chest: Mech vent; chest wall non-tender, crackles/rales, rhonchi - bilaterally, expiratory wheezing Abdomen: normal bowel sounds, non tender, soft, no organomegaly Skin: normal pigmentation, warm/dry Assessment/Plan Problem List: (1) HTN (hypertension) Assessment & Plan: Cont amlodipine. (2) Hyperkalemia (3) Respiratory failure with hypoxia Assessment & Plan: Intubated and sedated. (4) ESRD (end stage renal disease) Assessment & Plan: See nephrology note. Last Hemodialysis 09/23/16 per nephrology (5) CHF (congestive heart failure) (6) Diabetes mellitus Assessment & Plan: Cont novolog sliding scale. 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 (9) Anoxic encephalopathy syndrome Assessment & Plan: See neruo note. (10) Enterobacter sepsis (11) Pneumonia Assessment & Plan: Enterobacter. cont cefepime per ID (12) Anemia (13) Dysphagia Assessment & Plan: S/P PEG 09/23/16. Assessment/Plan Await tracheostomy. KARTIK CLANCY Sep 23, 2016 17:30
[2016-09-23] MEDS: Phenytoin 500 MG in NS 110 ML IVPB SCH (18:06)
[2016-09-24] VITALS (24 sets, daily range): BP systolic 81–164; BP diastolic 27–74
[2016-09-24] MEDS: Valproic Acid 250mg/5ml Liquid GT SCH ×3 (01:53→20:37)
[2016-09-24] MEDS: Metoclopramide 10mg/2ml Inj IVP SCH ×4 (04:30→22:11)
[2016-09-24] MEDS: NovoLOG Insulin Flexpen SUBQ SCH ×4 (05:44→17:10)
[2016-09-24] MEDS: Dyna-Hex 2% Top Sol 8oz TOPIC SCH (08:03)
[2016-09-24] MEDS: Phenytoin Susp 100mg/4ml GT SCH ×2 (08:03→20:37)
[2016-09-24] MEDS: Bethanechol 10mg Tab ORAL SCH ×3 (08:03→17:09)
[2016-09-24] MEDS: Minoxidil 10mg tab GT SCH ×2 (08:04→17:09)
[2016-09-24] MEDS: Pantoprazole Inj IVP SCH ×2 (08:04→20:38)
[2016-09-24] MEDS: Heparin 5000 units/ml inj SUBQ SCH ×2 (08:06→20:39)
[2016-09-24] MEDS: D5W 275 ML IV SCH (08:20)
--- NOTE | 2016-09-24 11:00 | Infectious Diseases Prog Note ---
Assessment/Plan Assessment/Plan antibiotics : levoquin A 1. enterobacter pneumonia 2. respiratory failure 3. renal failure 4. leucocytosis 5. s/p cardiac arrest P 1. continue levoquin 2. will follow up cultures Subjective ROS Limited/Unobtainable: Yes Allergies: Coded Allergies: NIACIN (Verified Allergy, Unknown, ITCHING, 01/30/12) Objective Vital Signs Last 24 Hour Vital Signs Date Time Temp Pulse Resp B/P Pulse Ox O2 Delivery O2 Flow Rate FiO2 09/24/16 10:35 71 17 30 09/24/16 10:00 80 20 100/36 98 Mechanical Ventilator 30 09/24/16 09:00 81 20 112/34 98 Mechanical Ventilator 30 09/24/16 08:53 82 23 30 09/24/16 08:04 118/35 09/24/16 08:04 82 118/35 09/24/16 08:00 76 09/24/16 08:00 98.5 82 21 118/35 100 Mechanical Ventilator 30 09/24/16 08:00 30 09/24/16 07:00 79 17 118/39 100 Mechanical Ventilator 30 09/24/16 06:45 81 22 30 09/24/16 06:00 78 19 109/31 100 Mechanical Ventilator 30 09/24/16 05:05 82 20 30 09/24/16 05:00 79 17 127/37 100 Mechanical Ventilator 30 09/24/16 04:00 30 09/24/16 04:00 98.7 80 16 134/74 99 Mechanical Ventilator 30 09/24/16 04:00 79 09/24/16 03:04 81 19 30 09/24/16 03:00 83 21 129/38 100 Mechanical Ventilator 30 09/24/16 02:00 81 21 100/27 100 Mechanical Ventilator 30 09/24/16 01:08 78 14 30 09/24/16 01:00 78 22 111/32 100 Mechanical Ventilator 30 09/24/16 00:00 30 09/24/16 00:00 98.6 84 20 110/62 99 Mechanical Ventilator 30 09/24/16 00:00 84 09/23/16 23:01 78 15 30 09/23/16 23:00 79 22 114/33 99 Mechanical Ventilator 30 09/23/16 22:00 86 20 152/49 99 Mechanical Ventilator 30 09/23/16 21:03 88 24 30 09/23/16 21:00 87 21 114/34 99 Mechanical Ventilator 30 09/23/16 20:00 99.5 87 20 100/72 99 Mechanical Ventilator 30 09/23/16 20:00 86 09/23/16 20:00 30 09/23/16 19:12 84 15 30 09/23/16 19:00 85 21 131/44 99 Mechanical Ventilator 30 09/23/16 18:00 92 32 123/41 99 Mechanical Ventilator 30 09/23/16 17:24 127/43 09/23/16 17:07 Mechanical Ventilator 4.0 30 09/23/16 17:00 91 24 127/43 97 Mechanical Ventilator 30 09/23/16 16:51 92 26 30 09/23/16 16:00 30 09/23/16 16:00 91 09/23/16 16:00 98.5 88 23 128/39 100 Mechanical Ventilator 30 09/23/16 15:15 89 24 30 09/23/16 15:00 90 18 142/43 99 Mechanical Ventilator 30 09/23/16 14:00 84 18 131/41 99 Mechanical Ventilator 30 09/23/16 13:07 79 16 30 09/23/16 13:00 79 16 93/32 98 Mechanical Ventilator 30 09/23/16 12:00 98.9 86 23 101/35 100 Mechanical Ventilator 30 09/23/16 12:00 30 09/23/16 12:00 84 09/23/16 11:30 Mechanical Ventilator 4.0 30 09/23/16 11:18 84 17 30 09/23/16 11:00 85 18 125/40 98 Mechanical Ventilator 30 Height (Feet): 5 Height (Inches): 9.00 Weight (Pounds): 167 HEENT: other - intubated Respiratory/Chest: lungs clear Cardiovascular: normal rate, regular rhythm, no gallop/murmur Abdomen: soft, non tender, other - GT Extremities: no edema, other - right subclavian LEWIS ADAMS Sep 24, 2016 11:00
--- NOTE | 2016-09-24 11:35 | Internal Med Progress Note ---
Subjective Date of Service: Sep 24, 2016 Physician Name Kartik Clancy Attending Physician Harrison Delatorre Current Medications Medications (Trade) Dose Ordered Sig/Mark Route PRN Reason Start Time Stop Time Status Last Admin Dose Admin Acetaminophen (Tylenol) 650 mg Q4H PRN ORAL Mild Pain (Pain Scale 1-3) 09/06/16 23:00 10/06/16 22:59 09/22/16 19:36 Amlodipine Besylate (Norvasc) 10 mg DAILY GT 09/15/16 10:56 10/07/16 08:59 09/24/16 08:04 Bethanechol Chloride (Urecholine) 10 mg THREE TIMES A DAY ORAL 09/21/16 13:00 10/21/16 12:59 09/24/16 08:03 Chlorhexidine Gluconate 1 applic 1 applic DAILY TOPIC 09/23/16 09:00 10/23/16 08:59 09/24/16 08:03 Dextrose (D5W) 275 ml @ 30 mls/hr DAILY IV 09/23/16 09:50 10/23/16 09:49 09/24/16 08:20 Dextrose (Dextrose 50%) STAT PRN IV Hypoglycemia 09/06/16 23:00 10/06/16 22:59 Heparin Sodium (Porcine) (Heparin 5000 units/ml) 5,000 units EVERY 12 HOURS SUBQ 09/08/16 21:00 10/08/16 20:59 09/24/16 08:06 Insulin Aspart (NovoLOG) EVERY 6 HOURS SUBQ 09/07/16 18:00 10/07/16 17:59 09/22/16 23:24 Levofloxacin (Levaquin) 500 mg Q48H NG 09/24/16 18:00 10/01/16 17:59 Metoclopramide HCl (Reglan) 5 mg Q6H IVP 09/15/16 22:30 10/15/16 22:29 09/24/16 09:44 Minoxidil (Loniten) 15 mg BID GT 09/15/16 10:57 10/13/16 17:59 09/24/16 08:04 Pantoprazole (Protonix) 40 mg EVERY 12 HOURS IVP 09/15/16 22:30 10/15/16 22:29 09/24/16 08:04 Phenytoin (Dilantin) 300 mg Q12HR GT 09/18/16 21:00 10/18/16 20:59 09/24/16 08:03 Phenytoin/Sodium Chloride (Dilantin/Sodium Chloride) 120 ml @ 120 mls/hr POSTHD IVPB 09/17/16 21:00 10/17/16 20:59 09/23/16 18:06 Polyethylene Glycol (Miralax) 17 gm DAILYPRN PRN ORAL Constipation 09/06/16 23:00 10/06/16 22:59 Valproic Acid (Depakene) 1,500 mg Q12HR GT 09/17/16 21:00 10/17/16 20:59 09/24/16 08:20 Valproic Acid 1000 mg 1,000 mg POSTHD GT 09/17/16 18:00 10/17/16 17:59 09/24/16 01:53 Allergies: Coded Allergies: NIACIN (Verified Allergy, Unknown, ITCHING, 01/30/12) ROS Limited/Unobtainable: Yes Subjective 71 YO M admitted with volume overload and respiratory failure. S/P cardiopulmonary arrest. ICU. Intubated and sedated. Cover for Int Med-Dr [place]. S/P PEG 09/23/16. Tracheostomy scheduled for today Objective Last Vital Signs Date Time Temp Pulse Resp B/P Pulse Ox O2 Delivery O2 Flow Rate FiO2 09/24/16 11:00 71 20 81/33 98 Mechanical Ventilator 30 09/24/16 08:00 98.5 09/23/16 17:07 4.0 Intake and Output 09/23/16 09/24/16 19:00 07:00 Intake Total 400 ml 120 ml Output Total 1000 ml Balance -600 ml 120 ml IV Total 300 ml Other 100 ml 120 ml Peritoneal Dialysis UF 1000 ml # Voids 2 4 # Bowel Movements 2 5 Objective General Appearance: WD/WN, lethargic EENT: PERRL/EOMI, normal ENT inspection, TMs normal Neck: non-tender, normal alignment, supple Cardiovascular: normal peripheral pulses, normal rate, regular rhythm, no gallop/murmur, no JVD Respiratory/Chest: Mech vent; chest wall non-tender, crackles/rales, rhonchi - bilaterally, expiratory wheezing Abdomen: normal bowel sounds, non tender, soft, no organomegaly Skin: normal pigmentation, warm/dry Assessment/Plan Problem List: (1) HTN (hypertension) Assessment & Plan: Cont amlodipine. (2) Hyperkalemia (3) Respiratory failure with hypoxia Assessment & Plan: Intubated and sedated. Tracheostomy scheduled for today, . (4) ESRD (end stage renal disease) Assessment & Plan: See nephrology note. Last Hemodialysis 09/23/16 per nephrology (5) CHF (congestive heart failure) (6) Diabetes mellitus Assessment & Plan: Cont novolog sliding scale. 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 (9) Anoxic encephalopathy syndrome Assessment & Plan: See neruo note. (10) Enterobacter sepsis (11) Pneumonia Assessment & Plan: Enterobacter. Cont Levaquin per ID (12) Anemia (13) Dysphagia Assessment & Plan: S/P PEG 09/23/16. Status: not improved Assessment/Plan Await tracheostomy today 09/24/16 KARTIK CLANCY Sep 24, 2016 11:35
--- NOTE | 2016-09-24 11:42 | Nephrology Progress Note ---
Assessment/Plan Problem List: (1) ESRD (end stage renal disease) (2) Anoxic encephalopathy syndrome (3) Respiratory failure with hypoxia (4) CHF (congestive heart failure) (5) HTN (hypertension) Assessment R arm edema Plan HD in AM Vent support PEG done Trach today follow labs TF today Discussed with RN and radiologist Subjective Subjective remains intubated no improvement in MS Objective Objective Last 24 Hour Vital Signs Date Time Temp Pulse Resp B/P Pulse Ox O2 Delivery O2 Flow Rate FiO2 09/24/16 11:00 71 20 81/33 98 Mechanical Ventilator 30 09/24/16 10:35 71 17 30 09/24/16 10:00 80 20 100/36 98 Mechanical Ventilator 30 09/24/16 09:00 81 20 112/34 98 Mechanical Ventilator 30 09/24/16 08:53 82 23 30 09/24/16 08:04 118/35 09/24/16 08:04 82 118/35 09/24/16 08:00 76 09/24/16 08:00 98.5 82 21 118/35 100 Mechanical Ventilator 30 09/24/16 08:00 30 09/24/16 07:00 79 17 118/39 100 Mechanical Ventilator 30 09/24/16 06:45 81 22 30 09/24/16 06:00 78 19 109/31 100 Mechanical Ventilator 30 09/24/16 05:05 82 20 30 09/24/16 05:00 79 17 127/37 100 Mechanical Ventilator 30 09/24/16 04:00 30 09/24/16 04:00 98.7 80 16 134/74 99 Mechanical Ventilator 30 09/24/16 04:00 79 09/24/16 03:04 81 19 30 09/24/16 03:00 83 21 129/38 100 Mechanical Ventilator 30 09/24/16 02:00 81 21 100/27 100 Mechanical Ventilator 30 09/24/16 01:08 78 14 30 09/24/16 01:00 78 22 111/32 100 Mechanical Ventilator 30 09/24/16 00:00 30 09/24/16 00:00 98.6 84 20 110/62 99 Mechanical Ventilator 30 09/24/16 00:00 84 09/23/16 23:01 78 15 30 09/23/16 23:00 79 22 114/33 99 Mechanical Ventilator 30 09/23/16 22:00 86 20 152/49 99 Mechanical Ventilator 30 09/23/16 21:03 88 24 30 09/23/16 21:00 87 21 114/34 99 Mechanical Ventilator 30 09/23/16 20:00 99.5 87 20 100/72 99 Mechanical Ventilator 30 09/23/16 20:00 86 09/23/16 20:00 30 09/23/16 19:12 84 15 30 09/23/16 19:00 85 21 131/44 99 Mechanical Ventilator 30 09/23/16 18:00 92 32 123/41 99 Mechanical Ventilator 30 09/23/16 17:24 127/43 09/23/16 17:07 Mechanical Ventilator 4.0 30 09/23/16 17:00 91 24 127/43 97 Mechanical Ventilator 30 09/23/16 16:51 92 26 30 09/23/16 16:00 30 09/23/16 16:00 91 09/23/16 16:00 98.5 88 23 128/39 100 Mechanical Ventilator 30 09/23/16 15:15 89 24 30 09/23/16 15:00 90 18 142/43 99 Mechanical Ventilator 30 09/23/16 14:00 84 18 131/41 99 Mechanical Ventilator 30 09/23/16 13:07 79 16 30 09/23/16 13:00 79 16 93/32 98 Mechanical Ventilator 30 09/23/16 12:00 98.9 86 23 101/35 100 Mechanical Ventilator 30 09/23/16 12:00 30 09/23/16 12:00 84 Intake and Output 09/23/16 09/24/16 19:00 07:00 Intake Total 400 ml 120 ml Output Total 1000 ml Balance -600 ml 120 ml IV Total 300 ml Other 100 ml 120 ml Peritoneal Dialysis UF 1000 ml # Voids 2 4 # Bowel Movements 2 5 Height (Feet): 5 Height (Inches): 9.00 Weight (Pounds): 167 Cardiovascular: normal rate Respiratory/Chest: rhonchi - bilaterally Extremities: other - no edema CANDICE BREAUX Sep 24, 2016 11:42
[2016-09-24] MEDS ORDERED: Lidocaine 1% 10mg/ml/Epi 0.005mg/ml 30ml vial INJ ONE (12:53)
[2016-09-24 13:18] LABS: BASOPHILS % (AUTO) 2.7 % (0.0-2.0); EOSINOPHILS % (AUTO) 0.8 % (0.0-3.0); LYMPHOCYTES % (AUTO) 10.3 % (20.0-45.0); MEAN CORPUSCULAR HGB CONC 32.1 G/DL (32.0-36.0); MEAN CORPUSCULAR VOLUME 97 FL (80-99); MEAN PLATELET VOLUME 7.2 FL (6.5-10.1); MONOCYTES % (AUTO) 10.1 % (1.0-10.0); NEUTROPHILS % (AUTO) 76.1 % (45.0-75.0); PLATELET COUNT 236 K/UL (150-450); RED BLOOD COUNT 2.82 M/UL (4.70-6.10); RED CELL DISTRIBUTION WIDTH 15.5 % (11.6-14.8); WHITE BLOOD COUNT 12.9 K/UL (4.8-10.8)
[2016-09-24] MEDS ORDERED: NS Irrig 1000ml ONE (13:30)
[2016-09-24] MEDS ORDERED: fentaNYL 100 mcg/2 mL IV ONE (13:30)
[2016-09-24] MEDS ORDERED: Propofol 10mg/ml 20ml IV ONE (13:30)
[2016-09-24] MEDS ORDERED: Nimbex 2mg/ml Inj 10ML IVP ONE (13:30)
[2016-09-24] MEDS ORDERED: Lidocaine 1% MPF 10mg/ml 5ml ONE (13:30)
[2016-09-24] MEDS ORDERED: ePHEDrine 50mg/ml Inj ONE (13:30)
[2016-09-24] MEDS ORDERED: Midazolam 2mg/2ml Inj ONE (13:30)
--- NOTE | 2016-09-24 13:39 | Pre-Procedure Note/Attestation ---
Pre-Procedure Note/Attestation Complete Prior to Procedure Planned Procedure: not applicable Procedure Narrative: Trach Indications for Procedure Pre-Operative Diagnosis: Vent dependent Attestation I attest that I discussed the nature of the procedure; its benefits; risks and complications; and alternatives (and the risks and benefits of such alternatives ), prior to the procedure, with the patient (or the patient's legal brewery representative). I attest that, if there was a reasonable possibility of needing a blood transfusion, the patient (or the patient's legal brewery representative) was given the [facility] standardized written summary, pursuant to the Malvin Anastacia Blood Safety Act ([place] Health and Safety Code # 1645, as amended). I attest that I re-evaluated the patient just prior to the surgery and that there has been no change in the patient's H&P. JANETH DUARTE Sep 24, 2016 13:39
[2016-09-24 13:41] LABS: CALCIUM 9.5 mg/dL (8.6-10.2); CREATININE 6.6 mg/dL (0.7-1.2); GLOMERULAR FILTRATION RATE 8.4 mL/min (>60); POTASSIUM 3.6 mEQ/L (3.4-4.9)
--- NOTE | 2016-09-24 14:22 | Brief Operative Note ---
Immediate Post Operative Note Operative Note Pre-op Diagnosis: Vent dependent Procedure: Trach Post-op Diagnosis: same as pre-op Surgeon: Janeth Duarte Civil Engineering Drafter: none Additional Surgeons: none Anesthesia: general Specimen: none Complications: none Condition: stable Estimated Blood Loss: volume - 5cc Drains: none Packing: [email or web address] [email or web address] Implant(s) used?: Yes - Cristiana non fenestrated with cuff JANETH DUARTE Sep 24, 2016 14:22
[2016-09-24] MEDS ORDERED: Tubing IV Secondary IV ONE (16:28)
[2016-09-24] MEDS ORDERED: D5W 275ml ONE (16:28)
[2016-09-24] MEDS ORDERED: NS 275ml ONE (16:28)
--- NOTE | 2016-09-24 17:27 | Critical Care Progress Note ---
Assessment/Plan Assessment/Plan 1. Status post cardiac arrest. 2. Renal failure with hyperkalemia. 3. Respiratory failure. 4. Anoxic encephalopathy. 5. Status epilepticus 6. Coronary artery disease. 7. History of cardiomyopathy. 8. Diabetes. 9. Hypertension. WBC high trach today cannot wean with poor MS and excess secretions, high RR will need placement Critical Care - Subjective ROS Limited/Unobtainable: Yes Condition: stable IV Access: dialysis access EKG Rhythm: Sinus Rhythm I&O: Intake and Output 09/23/16 09/24/16 19:00 07:00 Intake Total 400 ml 120 ml Output Total 1000 ml Balance -600 ml 120 ml IV Total 300 ml Other 100 ml 120 ml Peritoneal Dialysis UF 1000 ml # Voids 2 4 # Bowel Movements 2 5 Critical Care - Objective ET-Tube: 8.0 ET Position: 24 Last 24 Hour Vital Signs Date Time Temp Pulse Resp B/P Pulse Ox O2 Delivery O2 Flow Rate FiO2 09/24/16 17:09 92/32 09/24/16 17:00 81 15 92/32 98 Mechanical Ventilator 30 09/24/16 16:44 78 15 30 09/24/16 16:00 30 09/24/16 16:00 98.8 79 21 95/31 100 Mechanical Ventilator 30 09/24/16 16:00 80 09/24/16 15:29 80 23 30 09/24/16 15:00 80 14 106/34 98 Mechanical Ventilator 30 09/24/16 14:40 75 14 146/52 97 Mechanical Ventilator 30 09/24/16 13:00 76 20 149/46 100 Mechanical Ventilator 30 09/24/16 12:38 74 14 30 09/24/16 12:00 30 09/24/16 12:00 76 09/24/16 12:00 98.7 79 20 164/41 100 Mechanical Ventilator 30 09/24/16 11:00 71 20 81/33 98 Mechanical Ventilator 30 09/24/16 10:35 71 17 30 09/24/16 10:00 80 20 100/36 98 Mechanical Ventilator 30 09/24/16 09:00 81 20 112/34 98 Mechanical Ventilator 30 09/24/16 08:53 82 23 30 09/24/16 08:04 118/35 09/24/16 08:04 82 118/35 09/24/16 08:00 76 09/24/16 08:00 98.5 82 21 118/35 100 Mechanical Ventilator 30 09/24/16 08:00 30 09/24/16 07:00 79 17 118/39 100 Mechanical Ventilator 30 09/24/16 06:45 81 22 30 09/24/16 06:00 78 19 109/31 100 Mechanical Ventilator 30 09/24/16 05:05 82 20 30 09/24/16 05:00 79 17 127/37 100 Mechanical Ventilator 30 09/24/16 04:00 30 09/24/16 04:00 98.7 80 16 134/74 99 Mechanical Ventilator 30 09/24/16 04:00 79 09/24/16 03:04 81 19 30 09/24/16 03:00 83 21 129/38 100 Mechanical Ventilator 30 09/24/16 02:00 81 21 100/27 100 Mechanical Ventilator 30 09/24/16 01:08 78 14 30 09/24/16 01:00 78 22 111/32 100 Mechanical Ventilator 30 09/24/16 00:00 30 09/24/16 00:00 98.6 84 20 110/62 99 Mechanical Ventilator 30 09/24/16 00:00 84 09/23/16 23:01 78 15 30 09/23/16 23:00 79 22 114/33 99 Mechanical Ventilator 30 09/23/16 22:00 86 20 152/49 99 Mechanical Ventilator 30 09/23/16 21:03 88 24 30 09/23/16 21:00 87 21 114/34 99 Mechanical Ventilator 30 09/23/16 20:00 99.5 87 20 100/72 99 Mechanical Ventilator 30 09/23/16 20:00 86 09/23/16 20:00 30 09/23/16 19:12 84 15 30 09/23/16 19:00 85 21 131/44 99 Mechanical Ventilator 30 09/23/16 18:00 92 32 123/41 99 Mechanical Ventilator 30 Status: obtunded Condition: stable Neck: no JVD Lungs: clear Heart: normal rate Objective: umbilical hernia Accucheck: CHLOE KIM Sep 24, 2016 17:27
[2016-09-24 17:57] LABS: AMYLASE 442 U/L (10-110)
[2016-09-24] MEDS ORDERED: Levofloxacin 500mg tab NG SCH (18:00)
[2016-09-24 18:09] LABS: LIPASE > 300 U/L (< 60)
--- NOTE | 2016-09-24 18:25 | General Progress Note ---
Assessment/Plan Assessment/Plan Assessment - TF intolerance , N/V - presumed DM gastroparesis (can convert G to GJ tube in future if gastroparesis persists) - CT evidence of pancreatitis - ? gallstone, ? severity - encephalopathy - resp failure - DM with glucose in 250 - 350 range - needs better control - renal failure - Anemia, presumed due to renal failure Recommendations - BID IV PPI - Reglan / bethanecol - Hold TF - check pancreatic enzymes--> both am Amylase and Lipase High - low rate D5W Subjective Allergies: Coded Allergies: NIACIN (Verified Allergy, Unknown, ITCHING, 01/30/12) Subjective Above noted seen in ICU this am, prior to Trach d/w RN CT prelim results finally received this afternoon GT good position, but radiographic e/o pancreatitis noted, (+) gallstone Objective Last 24 Hour Vital Signs Date Time Temp Pulse Resp B/P Pulse Ox O2 Delivery O2 Flow Rate FiO2 09/24/16 18:00 81 15 121/38 98 Mechanical Ventilator 30 09/24/16 17:09 92/32 09/24/16 17:00 81 15 92/32 98 Mechanical Ventilator 30 09/24/16 16:44 78 15 30 09/24/16 16:00 30 09/24/16 16:00 98.8 79 21 95/31 100 Mechanical Ventilator 30 09/24/16 16:00 80 09/24/16 15:29 80 23 30 09/24/16 15:00 80 14 106/34 98 Mechanical Ventilator 30 09/24/16 14:40 75 14 146/52 97 Mechanical Ventilator 30 09/24/16 13:00 76 20 149/46 100 Mechanical Ventilator 30 09/24/16 12:38 74 14 30 09/24/16 12:00 30 09/24/16 12:00 76 09/24/16 12:00 98.7 79 20 164/41 100 Mechanical Ventilator 30 09/24/16 11:00 71 20 81/33 98 Mechanical Ventilator 30 09/24/16 10:35 71 17 30 09/24/16 10:00 80 20 100/36 98 Mechanical Ventilator 30 09/24/16 09:00 81 20 112/34 98 Mechanical Ventilator 30 09/24/16 08:53 82 23 30 09/24/16 08:04 118/35 09/24/16 08:04 82 118/35 09/24/16 08:00 76 09/24/16 08:00 98.5 82 21 118/35 100 Mechanical Ventilator 30 09/24/16 08:00 30 09/24/16 07:00 79 17 118/39 100 Mechanical Ventilator 30 09/24/16 06:45 81 22 30 09/24/16 06:00 78 19 109/31 100 Mechanical Ventilator 30 09/24/16 05:05 82 20 30 09/24/16 05:00 79 17 127/37 100 Mechanical Ventilator 30 09/24/16 04:00 30 09/24/16 04:00 98.7 80 16 134/74 99 Mechanical Ventilator 30 09/24/16 04:00 79 09/24/16 03:04 81 19 30 09/24/16 03:00 83 21 129/38 100 Mechanical Ventilator 30 09/24/16 02:00 81 21 100/27 100 Mechanical Ventilator 30 09/24/16 01:08 78 14 30 09/24/16 01:00 78 22 111/32 100 Mechanical Ventilator 30 09/24/16 00:00 30 09/24/16 00:00 98.6 84 20 110/62 99 Mechanical Ventilator 30 09/24/16 00:00 84 09/23/16 23:01 78 15 30 09/23/16 23:00 79 22 114/33 99 Mechanical Ventilator 30 09/23/16 22:00 86 20 152/49 99 Mechanical Ventilator 30 09/23/16 21:03 88 24 30 09/23/16 21:00 87 21 114/34 99 Mechanical Ventilator 30 09/23/16 20:00 99.5 87 20 100/72 99 Mechanical Ventilator 30 09/23/16 20:00 86 09/23/16 20:00 30 09/23/16 19:12 84 15 30 09/23/16 19:00 85 21 131/44 99 Mechanical Ventilator 30 Intake and Output 09/23/16 09/24/16 19:00 07:00 Intake Total 400 ml 120 ml Output Total 1000 ml Balance -600 ml 120 ml IV Total 300 ml Other 100 ml 120 ml Peritoneal Dialysis UF 1000 ml # Voids 2 4 # Bowel Movements 2 5 Laboratory Tests 09/24/16 13:04: White Blood Count 12.9H, Red Blood Count 2.82L, Hemoglobin 8.8L, Hematocrit 27.3L, Mean Corpuscular Volume 97, Mean Corpuscular Hemoglobin 31.0, Mean Corpuscular Hemoglobin Concent 32.1, Red Cell Distribution Width 15.5H, Platelet Count 236, Mean Platelet Volume 7.2, Neutrophils (%) (Auto) 76.1H, Lymphocytes (%) (Auto) 10.3L, Monocytes (%) (Auto) 10.1H, Eosinophils (%) (Auto ) 0.8, Basophils (%) (Auto) 2.7H, Sodium Level 141, Potassium Level 3.6, Chloride Level 92L, Carbon Dioxide Level 30, Anion Gap 19H, Blood Urea Nitrogen 71#H, Creatinine 6.6H, Estimat Glomerular Filtration Rate 8.4, Glucose Level 245 #H, Calcium Level 9.5, Amylase Level 442H, Lipase > 300H Height (Feet): 5 Height (Inches): 9.00 Weight (Pounds): 167 Objective Intubated and unresponsive NCAT, (+)ETT (by report, s/p trach after my visit) supple Coarse BS RR soft ND abdomen, (+) umbilical hernia w/o change, (+) GT no edema unresponsive ANNE CURRAN Sep 24, 2016 18:25
--- NOTE | 2016-09-24 20:30 | Operative Note - Dictated ---
DATE OF OPERATION: 09/24/2016 SURGEON: Kermit Arriaga M.D. BRANCH CONTROLLER: None. ANESTHESIA: Oral endotracheal anesthesia and 10 mL of 1% lidocaine and 100,000 epinephrine. INDICATION FOR SURGERY: Prolonged intubation without indication of extubation in the next few weeks. PREOPERATIVE DIAGNOSIS: Prolonged intubation without indication of extubation in the next few weeks. POSTOPERATIVE DIAGNOSIS: Prolonged intubation without indication of extubation in the next few weeks. PROCEDURE: Tracheostomy. FINDINGS: Good landmarks for tracheostomy. TECHNIQUE: The patient was prepped and draped in the usual manner. Time-out was performed. We all agreed as to the equipment and procedure to be done. All was present. We injected 1% lidocaine and 100,000 epinephrine 10 mL in between the sternal notch and two fingerbreadths up in the midline. I then proceeded to make an incision a fingerbreadth and a half up above the sternal notch approximately an inch and a half long with a 15 blade. It was then taken down with electrocautery to the strap muscles, which then were divided vertically, pulled apart with gentle dissection with electrocautery and [employer] [place]. The inferior base of the thyroid was noted, dissected in the midline, pulled superiorly. A tracheal hook was placed in the cricoid to bring the trachea up. I then proceeded to make an incision between the second and third cartilaginous ring with a 15 blade and a small cut in the anterior third so as to create an inferiorly based flap. It was sewn with a 3-0 silk to the inferior epithelial edge. Then, in concert with the anesthesiologist, the endotracheal tube was pulled up. The tip was just above the new stoma and a #8 Shiley was placed without difficulty. Breath sounds were good in the lungs post placement of the #8 Shiley with cuff nonfenestrated. It was tied into place on the left side two fingerbreadths loose with a trach tie. Then, four loose 3-0 silks were placed at 2, 5, 7, and 10. The incision site was packed with iodoform gauze, and a piece of Telfa was placed between the skin and the flange of the trach to protect the skin. EBL: 5 mL. COUNTS: None. DRAINS: None. SPONGE AND NEEDLE COUNT: Correct and concurred by all in the room. Kermit Arriaga M.D. DR: LILLY JOB#: [id number] CC:
[2016-09-25] VITALS (24 sets, daily range): BP systolic 91–152; BP diastolic 27–51
[2016-09-25] MEDS: Metoclopramide 10mg/2ml Inj IVP SCH (04:11)
[2016-09-25 05:56] LABS: BASOPHILS % (AUTO) 2.8 % (0.0-2.0); EOSINOPHILS % (AUTO) 0.4 % (0.0-3.0); LYMPHOCYTES % (AUTO) 7.3 % (20.0-45.0); MEAN CORPUSCULAR HEMOGLOBIN 31.9 PG (27.0-31.0); MEAN CORPUSCULAR HGB CONC 32.4 G/DL (32.0-36.0); MEAN CORPUSCULAR VOLUME 98 FL (80-99); MEAN PLATELET VOLUME 6.6 FL (6.5-10.1); MONOCYTES % (AUTO) 13.6 % (1.0-10.0); NEUTROPHILS % (AUTO) 75.9 % (45.0-75.0); PLATELET COUNT 229 K/UL (150-450); RED BLOOD COUNT 2.79 M/UL (4.70-6.10); RED CELL DISTRIBUTION WIDTH 15.4 % (11.6-14.8); WHITE BLOOD COUNT 14.7 K/UL (4.8-10.8)
[2016-09-25] MEDS: NovoLOG Insulin Flexpen SUBQ SCH ×4 (06:00→18:00)
[2016-09-25] MEDS ORDERED: Heparin Sod 1000 units/ml 10ml IV SCH (06:00)
[2016-09-25] MEDS ORDERED: Heparin 5000 units/ml inj INJ SCH (06:00)
[2016-09-25 06:20] LABS: ALBUMIN/GLOBULIN RATIO 0.5 (1.0-2.7); CALCIUM 9.6 mg/dL (8.6-10.2); CREATININE 7.6 mg/dL (0.7-1.2); GLOMERULAR FILTRATION RATE 7.1 mL/min (>60); PHOSPHORUS 6.2 mg/dL (2.5-4.8); POTASSIUM 4.1 mEQ/L (3.4-4.9); TOTAL PROTEIN 7.4 g/dL (6.6-8.7)
[2016-09-25 07:37] LABS: AMYLASE 549 U/L (10-110); LIPASE 990 U/L (< 60)
--- NOTE | 2016-09-25 07:50 | General Progress Note ---
Assessment/Plan Assessment/Plan Assessment - TF intolerance , N/V - presumed DM gastroparesis (can convert G to GJ tube in future if gastroparesis persists) - Acute pancreatitis, presumed due to gallstone - encephalopathy - resp failure - DM with glucose in 250 - 350 range - needs better control - renal failure - Anemia, presumed due to renal failure Recommendations - change PPI to daily - Reglan / bethanecol - Hold TF for now - follow pancreatic enzymes - surgical opinion re gallstone disease, although patient not a good surgical candidate - low rate D5W Subjective Allergies: Coded Allergies: NIACIN (Verified Allergy, Unknown, ITCHING, 01/30/12) Subjective Above noted uneventful night not started on tube feeds yesterday due to CT/lab evidence of acute pancreatitis (+) gallstone on CT today's amylase/lipase pending Objective Last 24 Hour Vital Signs Date Time Temp Pulse Resp B/P Pulse Ox O2 Delivery O2 Flow Rate FiO2 09/25/16 06:00 91 20 104/38 100 Mechanical Ventilator 30 09/25/16 05:25 90 16 30 09/25/16 05:00 90 20 127/38 100 Mechanical Ventilator 30 09/25/16 04:00 99.2 89 15 124/36 99 Mechanical Ventilator 30 09/25/16 04:00 30 09/25/16 04:00 90 09/25/16 03:06 89 18 30 09/25/16 03:00 90 20 119/33 99 Mechanical Ventilator 30 09/25/16 02:00 91 21 119/33 100 Mechanical Ventilator 30 09/25/16 01:00 89 22 30 09/25/16 01:00 89 16 135/42 100 Mechanical Ventilator 30 09/25/16 00:00 30 09/25/16 00:00 89 09/25/16 00:00 98.7 89 20 122/42 98 Mechanical Ventilator 30 09/24/16 23:00 87 16 110/52 99 Mechanical Ventilator 30 09/24/16 23:00 88 18 30 09/24/16 22:00 85 16 118/41 97 Mechanical Ventilator 30 09/24/16 21:22 86 19 30 09/24/16 21:00 85 22 115/44 99 Mechanical Ventilator 30 09/24/16 20:00 30 09/24/16 20:00 84 09/24/16 20:00 98.2 84 20 115/44 99 Mechanical Ventilator 30 09/24/16 19:16 84 24 30 09/24/16 19:00 82 15 137/43 98 Mechanical Ventilator 30 09/24/16 18:00 81 15 121/38 98 Mechanical Ventilator 30 09/24/16 17:09 92/32 09/24/16 17:00 81 15 92/32 98 Mechanical Ventilator 30 09/24/16 16:44 78 15 30 09/24/16 16:00 30 09/24/16 16:00 98.8 79 21 95/31 100 Mechanical Ventilator 30 09/24/16 16:00 80 09/24/16 15:29 80 23 30 09/24/16 15:00 80 14 106/34 98 Mechanical Ventilator 30 09/24/16 14:40 75 14 146/52 97 Mechanical Ventilator 30 09/24/16 13:00 76 20 149/46 100 Mechanical Ventilator 30 09/24/16 12:38 74 14 30 09/24/16 12:00 30 09/24/16 12:00 76 09/24/16 12:00 98.7 79 20 164/41 100 Mechanical Ventilator 30 09/24/16 11:00 71 20 81/33 98 Mechanical Ventilator 30 09/24/16 10:35 71 17 30 09/24/16 10:00 80 20 100/36 98 Mechanical Ventilator 30 09/24/16 09:00 81 20 112/34 98 Mechanical Ventilator 30 09/24/16 08:53 82 23 30 09/24/16 08:04 118/35 09/24/16 08:04 82 118/35 09/24/16 08:00 76 09/24/16 08:00 98.5 82 21 118/35 100 Mechanical Ventilator 30 09/24/16 08:00 30 Intake and Output 09/24/16 09/25/16 19:00 07:00 Intake Total 505 ml 100 ml Balance 505 ml 100 ml Free Water 30 ml IV Total 275 ml Other 200 ml 100 ml # Voids 2 2 # Bowel Movements 3 Laboratory Tests 09/24/16 13:04: White Blood Count 12.9H, Red Blood Count 2.82L, Hemoglobin 8.8L, Hematocrit 27.3L, Mean Corpuscular Volume 97, Mean Corpuscular Hemoglobin 31.0, Mean Corpuscular Hemoglobin Concent 32.1, Red Cell Distribution Width 15.5H, Platelet Count 236, Mean Platelet Volume 7.2, Neutrophils (%) (Auto) 76.1H, Lymphocytes (%) (Auto) 10.3L, Monocytes (%) (Auto) 10.1H, Eosinophils (%) (Auto ) 0.8, Basophils (%) (Auto) 2.7H, Sodium Level 141, Potassium Level 3.6, Chloride Level 92L, Carbon Dioxide Level 30, Anion Gap 19H, Blood Urea Nitrogen 71#H, Creatinine 6.6H, Estimat Glomerular Filtration Rate 8.4, Glucose Level 245 #H, Calcium Level 9.5, Amylase Level 442H, Lipase > 300H 09/25/16 04:00: White Blood Count 14.7H, Red Blood Count 2.79L, Hemoglobin 8.9L, Hematocrit 27.5L, Mean Corpuscular Volume 98, Mean Corpuscular Hemoglobin 31.9H, Mean Corpuscular Hemoglobin Concent 32.4, Red Cell Distribution Width 15.4H, Platelet Count 229, Mean Platelet Volume 6.6, Neutrophils (%) (Auto) 75.9H, Lymphocytes (%) (Auto) 7.3L, Monocytes (%) (Auto) 13.6H, Eosinophils (%) (Auto) 0.4, Basophils (%) (Auto) 2.8H, Sodium Level 144, Potassium Level 4.1, Chloride Level 93L, Carbon Dioxide Level 28, Anion Gap 23H, Blood Urea Nitrogen 78H, Creatinine 7.6H, Estimat Glomerular Filtration Rate 7.1, Glucose Level 206H, Calcium Level 9.6, Amylase Level 549*H, Lipase 990H, Phosphorus Level 6.2H, Total Bilirubin 0.2, Aspartate Amino Transf (AST/SGOT) 39, Alanine Aminotransferase (ALT/SGPT) 12, Alkaline Phosphatase 114, Total Protein 7.4, Albumin 2.7L, Globulin 4.7, Albumin/Globulin Ratio 0.5L Height (Feet): 5 Height (Inches): 9.00 Weight (Pounds): 164 Objective Intubated and unresponsive NCAT, (+)trach supple Coarse BS RR soft ND abdomen, (+) umbilical hernia w/o change, (+) GT no edema unresponsive ANNE CURRAN Sep 25, 2016 07:50
--- NOTE | 2016-09-25 08:02 | Immediate Post-Op Evaluation ---
Immediate Post-Op Evalulation Immediate Post-Op Evalulation Procedure: EGD/PEG Date of Evaluation: Sep 24, 2016 Time of Evaluation: 14:35 IV Fluids: 100 Blood Products: 0 Estimated Blood Loss: 5 Urinary Output: 0 Blood Pressure Systolic: 121 Blood Pressure Diastolic: 88 Pulse Rate: 78 Respiratory Rate: 18 O2 Sat by Pulse Oximetry: 100 Temperature (Fahrenheit): 97.1 Pain Score (1-10): 0 Nausea: No Vomiting: No Complications 0 Patient Status: no response - sedated, ventilated, none Hydration Status: adequate Drug: Ancef 1g Given Within 1 Hr of Incision: Yes Time Given: 13:50 CANDELARIA BEJARANO M.D. Sep 25, 2016 08:02
[2016-09-25] MEDS: Heparin 5000 units/ml inj SUBQ SCH ×2 (09:00→21:32)
[2016-09-25] MEDS: Minoxidil 10mg tab GT SCH ×2 (09:00→18:40)
[2016-09-25] MEDS: Metoclopramide 10mg/10ml Liq NG SCH ×3 (09:33→18:39)
[2016-09-25] MEDS: Valproic Acid 250mg/5ml Liquid GT SCH ×2 (09:33→21:38)
[2016-09-25] MEDS: Bethanechol 10mg Tab ORAL SCH ×3 (09:33→18:39)
[2016-09-25] MEDS: Dyna-Hex 2% Top Sol 8oz TOPIC SCH (09:34)
[2016-09-25] MEDS: Phenytoin Susp 100mg/4ml GT SCH ×2 (09:34→21:31)
--- NOTE | 2016-09-25 09:45 | Infectious Diseases Prog Note ---
Assessment/Plan Assessment/Plan A; Sepsis improving pneumonia with Enterobacter COPD s/p cardiac arrest Anoxic encephalopathy ESRD on HD Respiratory failure s/p tracheostomy s/p GT placement P; continue Levaquin Subjective ROS Limited/Unobtainable: Yes Neurologic: Reports: confusion, other - on restraint Allergies: Coded Allergies: NIACIN (Verified Allergy, Unknown, ITCHING, 01/30/12) Objective Vital Signs Last 24 Hour Vital Signs Date Time Temp Pulse Resp B/P Pulse Ox O2 Delivery O2 Flow Rate FiO2 09/25/16 08:58 91 18 30 09/25/16 08:02 78 18 100 09/25/16 08:00 91 09/25/16 08:00 30 09/25/16 08:00 98.7 95 24 116/39 100 Mechanical Ventilator 30 09/25/16 07:00 91 20 128/50 100 Mechanical Ventilator 30 09/25/16 06:53 91 28 30 09/25/16 06:00 91 20 104/38 100 Mechanical Ventilator 30 09/25/16 05:25 90 16 30 09/25/16 05:00 90 20 127/38 100 Mechanical Ventilator 30 09/25/16 04:00 99.2 89 15 124/36 99 Mechanical Ventilator 30 09/25/16 04:00 30 09/25/16 04:00 90 09/25/16 03:06 89 18 30 09/25/16 03:00 90 20 119/33 99 Mechanical Ventilator 30 09/25/16 02:00 91 21 119/33 100 Mechanical Ventilator 30 09/25/16 01:00 89 22 30 09/25/16 01:00 89 16 135/42 100 Mechanical Ventilator 30 09/25/16 00:00 30 09/25/16 00:00 89 09/25/16 00:00 98.7 89 20 122/42 98 Mechanical Ventilator 30 09/24/16 23:00 87 16 110/52 99 Mechanical Ventilator 30 09/24/16 23:00 88 18 30 09/24/16 22:00 85 16 118/41 97 Mechanical Ventilator 30 09/24/16 21:22 86 19 30 09/24/16 21:00 85 22 115/44 99 Mechanical Ventilator 30 09/24/16 20:00 30 09/24/16 20:00 84 09/24/16 20:00 98.2 84 20 115/44 99 Mechanical Ventilator 30 09/24/16 19:16 84 24 30 09/24/16 19:00 82 15 137/43 98 Mechanical Ventilator 30 09/24/16 18:00 81 15 121/38 98 Mechanical Ventilator 30 09/24/16 17:09 92/32 09/24/16 17:00 81 15 92/32 98 Mechanical Ventilator 30 09/24/16 16:44 78 15 30 09/24/16 16:00 30 09/24/16 16:00 98.8 79 21 95/31 100 Mechanical Ventilator 30 09/24/16 16:00 80 09/24/16 15:29 80 23 30 09/24/16 15:00 80 14 106/34 98 Mechanical Ventilator 30 09/24/16 14:40 75 14 146/52 97 Mechanical Ventilator 30 09/24/16 13:00 76 20 149/46 100 Mechanical Ventilator 30 09/24/16 12:38 74 14 30 09/24/16 12:00 30 09/24/16 12:00 76 09/24/16 12:00 98.7 79 20 164/41 100 Mechanical Ventilator 30 09/24/16 11:00 71 20 81/33 98 Mechanical Ventilator 30 09/24/16 10:35 71 17 30 09/24/16 10:00 80 20 100/36 98 Mechanical Ventilator 30 Height (Feet): 5 Height (Inches): 9.00 Weight (Pounds): 164 General Appearance: no acute distress HEENT: status post trach Respiratory/Chest: lungs clear Cardiovascular: normal rate Abdomen: soft, non tender, other - s/p GT Extremities: other - edema in right hand Neurologic/Psychiatric: disoriented Laboratory Tests Test 09/24/16 13:04 09/25/16 04:00 White Blood Count 12.9 K/UL (4.8-10.8) H 14.7 K/UL (4.8-10.8) H Red Blood Count 2.82 M/UL (4.70-6.10) L 2.79 M/UL (4.70-6.10) L Hemoglobin 8.8 G/DL (14.2-18.0) L 8.9 G/DL (14.2-18.0) L Hematocrit 27.3 % (42.0-52.0) L 27.5 % (42.0-52.0) L Mean Corpuscular Volume 97 FL (80-99) 98 FL (80-99) Mean Corpuscular Hemoglobin 31.0 PG (27.0-31.0) 31.9 PG (27.0-31.0) H Mean Corpuscular Hemoglobin Concent 32.1 G/DL (32.0-36.0) 32.4 G/DL (32.0-36.0) Red Cell Distribution Width 15.5 % (11.6-14.8) H 15.4 % (11.6-14.8) H Platelet Count 236 K/UL (150-450) 229 K/UL (150-450) Mean Platelet Volume 7.2 FL (6.5-10.1) 6.6 FL (6.5-10.1) Neutrophils (%) (Auto) 76.1 % (45.0-75.0) H 75.9 % (45.0-75.0) H Lymphocytes (%) (Auto) 10.3 % (20.0-45.0) L 7.3 % (20.0-45.0) L Monocytes (%) (Auto) 10.1 % (1.0-10.0) H 13.6 % (1.0-10.0) H Eosinophils (%) (Auto) 0.8 % (0.0-3.0) 0.4 % (0.0-3.0) Basophils (%) (Auto) 2.7 % (0.0-2.0) H 2.8 % (0.0-2.0) H Sodium Level 141 mEQ/L (135-145) 144 mEQ/L (135-145) Potassium Level 3.6 mEQ/L (3.4-4.9) 4.1 mEQ/L (3.4-4.9) Chloride Level 92 mEQ/L (98-107) L 93 mEQ/L (98-107) L Carbon Dioxide Level 30 mEQ/L (20-30) 28 mEQ/L (20-30) Anion Gap 19 (5-15) H 23 (5-15) H Blood Urea Nitrogen 71 mg/dL (7-23) #H 78 mg/dL (7-23) H Creatinine 6.6 mg/dL (0.7-1.2) H 7.6 mg/dL (0.7-1.2) H Estimat Glomerular Filtration Rate 8.4 mL/min (>60) 7.1 mL/min (>60) Glucose Level 245 mg/dL (74-106) #H 206 mg/dL (74-106) H Calcium Level 9.5 mg/dL (8.6-10.2) 9.6 mg/dL (8.6-10.2) Amylase Level 442 U/L (10-110) H 549 U/L (10-110) *H Lipase > 300 U/L (< 60) H 990 U/L (< 60) H Phosphorus Level 6.2 mg/dL (2.5-4.8) H Total Bilirubin 0.2 mg/dL (0.0-1.2) Aspartate Amino Transf (AST/SGOT) 39 U/L (5-40) Alanine Aminotransferase (ALT/SGPT) 12 U/L (3-41) Alkaline Phosphatase 114 U/L (40-129) Total Protein 7.4 g/dL (6.6-8.7) Albumin 2.7 g/dL (3.5-5.2) L Globulin 4.7 g/dL Albumin/Globulin Ratio 0.5 (1.0-2.7) L Current Medications Medications (Trade) Dose Ordered Sig/Mark Route PRN Reason Start Time Stop Time Status Last Admin Dose Admin Acetaminophen (Tylenol) 650 mg Q4H PRN ORAL Mild Pain (Pain Scale 1-3) 09/06/16 23:00 10/06/16 22:59 09/22/16 19:36 Amlodipine Besylate (Norvasc) 10 mg DAILY GT 09/15/16 10:56 10/07/16 08:59 09/24/16 08:04 Bethanechol Chloride (Urecholine) 10 mg THREE TIMES A DAY ORAL 09/21/16 13:00 10/21/16 12:59 09/25/16 09:33 Chlorhexidine Gluconate 1 applic 1 applic DAILY TOPIC 09/23/16 09:00 10/23/16 08:59 09/25/16 09:34 Dextrose (Dextrose 50%) STAT PRN IV Hypoglycemia 09/06/16 23:00 10/06/16 22:59 Heparin Sodium (Porcine) (Heparin 5000 units/ml) 5,000 units EVERY 12 HOURS SUBQ 09/08/16 21:00 10/08/16 20:59 09/24/16 20:39 Heparin Sodium (Porcine) (Heparin 5000 units/ml) 5,000 units POSTHD INJ 09/25/16 06:00 09/25/16 23:59 Heparin Sodium (Porcine) (Heparin Sod 1000 units/ml 10ml) 500 unit ONCE IV 09/25/16 06:00 09/25/16 23:59 Insulin Aspart (NovoLOG) EVERY 6 HOURS SUBQ 09/07/16 18:00 10/07/16 17:59 09/22/16 23:24 Lansoprazole (Prevacid) 30 mg DAILY GT 09/25/16 09:00 10/25/16 08:59 09/25/16 09:33 Levofloxacin (Levaquin) 500 mg Q48H NG 09/24/16 18:00 10/01/16 17:59 09/24/16 17:09 Metoclopramide HCl (Reglan) 5 mg Q6HR NG 09/25/16 08:00 10/25/16 07:59 09/25/16 09:33 Minoxidil (Loniten) 15 mg BID GT 09/15/16 10:57 10/13/16 17:59 09/24/16 08:04 Phenytoin (Dilantin) 300 mg Q12HR GT 09/18/16 21:00 10/18/16 20:59 09/25/16 09:34 Phenytoin/Sodium Chloride (Dilantin/Sodium Chloride) 120 ml @ 120 mls/hr POSTHD IVPB 09/17/16 21:00 10/17/16 20:59 09/23/16 18:06 Polyethylene Glycol (Miralax) 17 gm DAILYPRN PRN ORAL Constipation 09/06/16 23:00 10/06/16 22:59 Sodium Chloride (Sodium Chloride 1000ml bag) 1,000 ml @ 500 mls/hr Q2H PRN IVLG sbp<90 during hd 09/25/16 06:00 09/25/16 23:59 Valproic Acid (Depakene) 1,500 mg Q12HR GT 09/17/16 21:00 10/17/16 20:59 09/25/16 09:33 Valproic Acid 1000 mg 1,000 mg POSTHD GT 09/17/16 18:00 10/17/16 17:59 09/24/16 01:53 ROZINA BREAUX Sep 25, 2016 09:45
--- NOTE | 2016-09-25 12:26 | Nephrology Progress Note ---
Assessment/Plan Problem List: (1) ESRD (end stage renal disease) (2) Anoxic encephalopathy syndrome (3) Respiratory failure with hypoxia (4) CHF (congestive heart failure) (5) HTN (hypertension) (6) Acute pancreatitis Plan HD as tolerated Vent support follow labs Discussed with RN and Dr Arias surgical consult Subjective Subjective remains intubated S/P trach Objective Objective Last 24 Hour Vital Signs Date Time Temp Pulse Resp B/P Pulse Ox O2 Delivery O2 Flow Rate FiO2 09/25/16 11:00 90 26 117/34 100 Mechanical Ventilator 30 09/25/16 10:00 89 20 101/37 100 Mechanical Ventilator 30 09/25/16 09:00 90 24 135/39 100 Mechanical Ventilator 30 09/25/16 09:00 135/39 09/25/16 09:00 91 135/39 09/25/16 08:58 91 18 30 09/25/16 08:02 78 18 100 09/25/16 08:00 91 09/25/16 08:00 30 09/25/16 08:00 98.7 95 24 116/39 100 Mechanical Ventilator 30 09/25/16 07:00 91 20 128/50 100 Mechanical Ventilator 30 09/25/16 06:53 91 28 30 09/25/16 06:00 91 20 104/38 100 Mechanical Ventilator 30 09/25/16 05:25 90 16 30 09/25/16 05:00 90 20 127/38 100 Mechanical Ventilator 30 09/25/16 04:00 99.2 89 15 124/36 99 Mechanical Ventilator 30 09/25/16 04:00 30 09/25/16 04:00 90 09/25/16 03:06 89 18 30 09/25/16 03:00 90 20 119/33 99 Mechanical Ventilator 30 09/25/16 02:00 91 21 119/33 100 Mechanical Ventilator 30 09/25/16 01:00 89 22 30 09/25/16 01:00 89 16 135/42 100 Mechanical Ventilator 30 09/25/16 00:00 30 09/25/16 00:00 89 09/25/16 00:00 98.7 89 20 122/42 98 Mechanical Ventilator 30 09/24/16 23:00 87 16 110/52 99 Mechanical Ventilator 30 09/24/16 23:00 88 18 30 09/24/16 22:00 85 16 118/41 97 Mechanical Ventilator 30 09/24/16 21:22 86 19 30 09/24/16 21:00 85 22 115/44 99 Mechanical Ventilator 30 09/24/16 20:00 30 09/24/16 20:00 84 09/24/16 20:00 98.2 84 20 115/44 99 Mechanical Ventilator 30 09/24/16 19:16 84 24 30 09/24/16 19:00 82 15 137/43 98 Mechanical Ventilator 30 09/24/16 18:00 81 15 121/38 98 Mechanical Ventilator 30 09/24/16 17:09 92/32 09/24/16 17:00 81 15 92/32 98 Mechanical Ventilator 30 09/24/16 16:44 78 15 30 09/24/16 16:00 30 09/24/16 16:00 98.8 79 21 95/31 100 Mechanical Ventilator 30 09/24/16 16:00 80 09/24/16 15:29 80 23 30 09/24/16 15:00 80 14 106/34 98 Mechanical Ventilator 30 09/24/16 14:40 75 14 146/52 97 Mechanical Ventilator 30 09/24/16 13:00 76 20 149/46 100 Mechanical Ventilator 30 09/24/16 12:38 74 14 30 Intake and Output 09/24/16 09/25/16 19:00 07:00 Intake Total 505 ml 100 ml Balance 505 ml 100 ml Free Water 30 ml IV Total 275 ml Other 200 ml 100 ml # Voids 2 2 # Bowel Movements 3 Laboratory Tests 09/24/16 13:04: White Blood Count 12.9H, Red Blood Count 2.82L, Hemoglobin 8.8L, Hematocrit 27.3L, Mean Corpuscular Volume 97, Mean Corpuscular Hemoglobin 31.0, Mean Corpuscular Hemoglobin Concent 32.1, Red Cell Distribution Width 15.5H, Platelet Count 236, Mean Platelet Volume 7.2, Neutrophils (%) (Auto) 76.1H, Lymphocytes (%) (Auto) 10.3L, Monocytes (%) (Auto) 10.1H, Eosinophils (%) (Auto ) 0.8, Basophils (%) (Auto) 2.7H, Sodium Level 141, Potassium Level 3.6, Chloride Level 92L, Carbon Dioxide Level 30, Anion Gap 19H, Blood Urea Nitrogen 71#H, Creatinine 6.6H, Estimat Glomerular Filtration Rate 8.4, Glucose Level 245 #H, Calcium Level 9.5, Amylase Level 442H, Lipase > 300H 09/25/16 04:00: White Blood Count 14.7H, Red Blood Count 2.79L, Hemoglobin 8.9L, Hematocrit 27.5L, Mean Corpuscular Volume 98, Mean Corpuscular Hemoglobin 31.9H, Mean Corpuscular Hemoglobin Concent 32.4, Red Cell Distribution Width 15.4H, Platelet Count 229, Mean Platelet Volume 6.6, Neutrophils (%) (Auto) 75.9H, Lymphocytes (%) (Auto) 7.3L, Monocytes (%) (Auto) 13.6H, Eosinophils (%) (Auto) 0.4, Basophils (%) (Auto) 2.8H, Sodium Level 144, Potassium Level 4.1, Chloride Level 93L, Carbon Dioxide Level 28, Anion Gap 23H, Blood Urea Nitrogen 78H, Creatinine 7.6H, Estimat Glomerular Filtration Rate 7.1, Glucose Level 206H, Calcium Level 9.6, Amylase Level 549*H, Lipase 990H, Phosphorus Level 6.2H, Total Bilirubin 0.2, Aspartate Amino Transf (AST/SGOT) 39, Alanine Aminotransferase (ALT/SGPT) 12, Alkaline Phosphatase 114, Total Protein 7.4, Albumin 2.7L, Globulin 4.7, Albumin/Globulin Ratio 0.5L, Hepatitis A IgM Antibody [Pending], Hepatitis B Surface Antigen [Pending], Hepatitis B Core IgM Antibody [Pending], Hepatitis C Antibody [Pending] Height (Feet): 5 Height (Inches): 9.00 Weight (Pounds): 164 Cardiovascular: normal rate Respiratory/Chest: rhonchi - bilaterally Extremities: other - no edema CANDICE BREAUX Sep 25, 2016 12:26
--- NOTE | 2016-09-25 13:02 | General Progress Note ---
Progress Note Progress Note Surgery Consultation (dictated) Chart reviewed, patient examined, CT reviewed revealing pancreatitis, gallstones , fat containing umbilical/ventral hernia. Labs reveal normal LFTs (x slight elevation alk phos); elevated amylase and lipase Imp. S/P cardioresp. arrest with tracheostomy, feeding PEG, unresponsive state, status epilepticus, renal failure on dialysis Pancreatitis, acute with cholelithiasis Rec: The patient is not a candidate for cholecystectomy at this time. It can be considered if he stabilizes and after the acute pancreatitis has resolved. Thank you - will follow. CITLALLI BRIAN Sep 25, 2016 13:02
--- NOTE | 2016-09-25 16:59 | Internal Med Progress Note ---
Subjective Date of Service: Sep 25, 2016 Physician Name Filiberto Clancy Attending Physician Harrison Delatorre Current Medications Medications (Trade) Dose Ordered Sig/Mark Route PRN Reason Start Time Stop Time Status Last Admin Dose Admin Acetaminophen (Tylenol) 650 mg Q4H PRN ORAL Mild Pain (Pain Scale 1-3) 09/06/16 23:00 10/06/16 22:59 09/22/16 19:36 Amlodipine Besylate (Norvasc) 10 mg DAILY GT 09/15/16 10:56 10/07/16 08:59 09/24/16 08:04 Bethanechol Chloride (Urecholine) 10 mg THREE TIMES A DAY ORAL 09/21/16 13:00 10/21/16 12:59 09/25/16 13:10 Chlorhexidine Gluconate 1 applic 1 applic DAILY TOPIC 09/23/16 09:00 10/23/16 08:59 09/25/16 09:34 Dextrose (Dextrose 50%) STAT PRN IV Hypoglycemia 09/06/16 23:00 10/06/16 22:59 Heparin Sodium (Porcine) (Heparin 5000 units/ml) 5,000 units EVERY 12 HOURS SUBQ 09/08/16 21:00 10/08/16 20:59 09/24/16 20:39 Heparin Sodium (Porcine) (Heparin 5000 units/ml) 5,000 units POSTHD INJ 09/25/16 06:00 09/25/16 23:59 Heparin Sodium (Porcine) (Heparin Sod 1000 units/ml 10ml) 500 unit ONCE IV 09/25/16 06:00 09/25/16 23:59 09/25/16 15:16 Insulin Aspart (NovoLOG) EVERY 6 HOURS SUBQ 09/07/16 18:00 10/07/16 17:59 09/22/16 23:24 Lansoprazole (Prevacid) 30 mg DAILY GT 09/25/16 09:00 10/25/16 08:59 09/25/16 09:33 Levofloxacin (Levaquin) 500 mg Q48H NG 09/24/16 18:00 10/01/16 17:59 09/24/16 17:09 Metoclopramide HCl (Reglan) 5 mg Q6HR NG 09/25/16 08:00 10/25/16 07:59 09/25/16 13:10 Minoxidil (Loniten) 15 mg BID GT 09/15/16 10:57 10/13/16 17:59 09/24/16 08:04 Phenytoin (Dilantin) 300 mg Q12HR GT 09/18/16 21:00 10/18/16 20:59 09/25/16 09:34 Phenytoin/Sodium Chloride (Dilantin/Sodium Chloride) 120 ml @ 120 mls/hr POSTHD IVPB 09/17/16 21:00 10/17/16 20:59 09/23/16 18:06 Polyethylene Glycol (Miralax) 17 gm DAILYPRN PRN ORAL Constipation 09/06/16 23:00 10/06/16 22:59 Sodium Chloride (Sodium Chloride 1000ml bag) 1,000 ml @ 500 mls/hr Q2H PRN IVLG sbp<90 during hd 09/25/16 06:00 09/25/16 23:59 Valproic Acid (Depakene) 1,500 mg Q12HR GT 09/17/16 21:00 10/17/16 20:59 09/25/16 09:33 Valproic Acid 1000 mg 1,000 mg POSTHD GT 09/17/16 18:00 10/17/16 17:59 09/24/16 01:53 Allergies: Coded Allergies: NIACIN (Verified Allergy, Unknown, ITCHING, 01/30/12) ROS Limited/Unobtainable: Yes Subjective 71 YO M admitted with volume overload and respiratory failure. S/P cardiopulmonary arrest. ICU. Intubated and sedated. Cover for Int Brad-Dr Vail. S/P PEG 09/23/16. S/P Tracheostomy 09/24/16 Objective Last Vital Signs Date Time Temp Pulse Resp B/P Pulse Ox O2 Delivery O2 Flow Rate FiO2 09/25/16 16:32 Mechanical Ventilator 4.0 30 09/25/16 16:00 91 09/25/16 16:00 18 133/44 100 09/25/16 12:00 99.4 Laboratory Tests Test 09/25/16 04:00 White Blood Count 14.7 K/UL (4.8-10.8) H Red Blood Count 2.79 M/UL (4.70-6.10) L Hemoglobin 8.9 G/DL (14.2-18.0) L Hematocrit 27.5 % (42.0-52.0) L Mean Corpuscular Volume 98 FL (80-99) Mean Corpuscular Hemoglobin 31.9 PG (27.0-31.0) H Mean Corpuscular Hemoglobin Concent 32.4 G/DL (32.0-36.0) Red Cell Distribution Width 15.4 % (11.6-14.8) H Platelet Count 229 K/UL (150-450) Mean Platelet Volume 6.6 FL (6.5-10.1) Neutrophils (%) (Auto) 75.9 % (45.0-75.0) H Lymphocytes (%) (Auto) 7.3 % (20.0-45.0) L Monocytes (%) (Auto) 13.6 % (1.0-10.0) H Eosinophils (%) (Auto) 0.4 % (0.0-3.0) Basophils (%) (Auto) 2.8 % (0.0-2.0) H Sodium Level 144 mEQ/L (135-145) Potassium Level 4.1 mEQ/L (3.4-4.9) Chloride Level 93 mEQ/L (98-107) L Carbon Dioxide Level 28 mEQ/L (20-30) Anion Gap 23 (5-15) H Blood Urea Nitrogen 78 mg/dL (7-23) H Creatinine 7.6 mg/dL (0.7-1.2) H Estimat Glomerular Filtration Rate 7.1 mL/min (>60) Glucose Level 206 mg/dL (74-106) H Calcium Level 9.6 mg/dL (8.6-10.2) Phosphorus Level 6.2 mg/dL (2.5-4.8) H Total Bilirubin 0.2 mg/dL (0.0-1.2) Aspartate Amino Transf (AST/SGOT) 39 U/L (5-40) Alanine Aminotransferase (ALT/SGPT) 12 U/L (3-41) Alkaline Phosphatase 114 U/L (40-129) Total Protein 7.4 g/dL (6.6-8.7) Albumin 2.7 g/dL (3.5-5.2) L Globulin 4.7 g/dL Albumin/Globulin Ratio 0.5 (1.0-2.7) L Amylase Level 549 U/L (10-110) *H Lipase 990 U/L (< 60) H Hepatitis A IgM Antibody Pending Hepatitis B Surface Antigen Pending Hepatitis B Core IgM Antibody Pending Hepatitis C Antibody Pending Intake and Output 09/24/16 09/25/16 19:00 07:00 Intake Total 505 ml 100 ml Balance 505 ml 100 ml Free Water 30 ml IV Total 275 ml Other 200 ml 100 ml # Voids 2 2 # Bowel Movements 3 Objective General Appearance: WD/WN, lethargic EENT: PERRL/EOMI, normal ENT inspection, TMs normal Neck: non-tender, normal alignment, supple Cardiovascular: normal peripheral pulses, normal rate, regular rhythm, no gallop/murmur, no JVD Respiratory/Chest: Mech vent; chest wall non-tender, crackles/rales, rhonchi - bilaterally, expiratory wheezing Abdomen: normal bowel sounds, non tender, soft, no organomegaly Skin: normal pigmentation, warm/dry Assessment/Plan Problem List: (1) HTN (hypertension) Assessment & Plan: Cont amlodipine. (2) Hyperkalemia (3) Respiratory failure with hypoxia Assessment & Plan: Intubated and sedated. S/P Tracheostomy 09/24/16. (4) ESRD (end stage renal disease) Assessment & Plan: See nephrology note. Last Hemodialysis 09/23/16 per nephrology (5) CHF (congestive heart failure) (6) Diabetes mellitus Assessment & Plan: Cont novolog sliding scale. 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 (9) Anoxic encephalopathy syndrome Assessment & Plan: See neruo note. (10) Enterobacter sepsis (11) Pneumonia Assessment & Plan: Enterobacter. Cont Levaquin per ID (12) Anemia (13) Dysphagia Assessment & Plan: S/P PEG 09/23/16. FILIBERTO CLANCY Sep 25, 2016 16:59
--- NOTE | 2016-09-25 17:54 | Critical Care Progress Note ---
Assessment/Plan Assessment/Plan 1. Status post cardiac arrest. 2. Renal failure with hyperkalemia. 3. Respiratory failure. 4. Anoxic encephalopathy. 5. Status epilepticus 6. Coronary artery disease. 7. History of cardiomyopathy. 8. Diabetes. 9. Hypertension. WBC better trach tolerated well, disc w Dr Arriaga weaning trial with high RR note gall stone pancreatitis cont vent support Critical Care - Subjective ROS Limited/Unobtainable: Yes Condition: stable EKG Rhythm: Sinus Rhythm I&O: Intake and Output 09/24/16 09/25/16 19:00 07:00 Intake Total 505 ml 100 ml Balance 505 ml 100 ml Free Water 30 ml IV Total 275 ml Other 200 ml 100 ml # Voids 2 2 # Bowel Movements 3 Critical Care - Objective ET-Tube: 8.0 ET Position: 24 Last 24 Hour Vital Signs Date Time Temp Pulse Resp B/P Pulse Ox O2 Delivery O2 Flow Rate FiO2 09/25/16 17:00 97.6 94 18 144/39 100 Mechanical Ventilator 30 09/25/16 16:58 72 13 30 09/25/16 16:32 Mechanical Ventilator 4.0 30 09/25/16 16:00 30 09/25/16 16:00 91 09/25/16 16:00 90 18 133/44 100 Mechanical Ventilator 30 09/25/16 15:03 90 29 30 09/25/16 15:00 87 19 129/38 100 Mechanical Ventilator 30 09/25/16 14:00 88 27 135/43 100 Mechanical Ventilator 30 09/25/16 13:00 84 22 151/47 100 Mechanical Ventilator 30 09/25/16 12:49 87 17 30 09/25/16 12:30 Mechanical Ventilator 4.0 30 09/25/16 12:00 99.4 88 20 104/31 100 Mechanical Ventilator 30 09/25/16 12:00 30 09/25/16 12:00 87 09/25/16 11:00 90 26 117/34 100 Mechanical Ventilator 30 09/25/16 10:55 90 19 30 09/25/16 10:00 89 20 101/37 100 Mechanical Ventilator 30 09/25/16 09:00 90 24 135/39 100 Mechanical Ventilator 30 09/25/16 09:00 135/39 09/25/16 09:00 91 135/39 09/25/16 08:58 91 18 30 09/25/16 08:02 78 18 100 09/25/16 08:00 91 09/25/16 08:00 30 09/25/16 08:00 98.7 95 24 116/39 100 Mechanical Ventilator 30 09/25/16 07:00 91 20 128/50 100 Mechanical Ventilator 30 09/25/16 06:53 91 28 30 09/25/16 06:00 91 20 104/38 100 Mechanical Ventilator 30 09/25/16 05:25 90 16 30 09/25/16 05:00 90 20 127/38 100 Mechanical Ventilator 30 09/25/16 04:00 99.2 89 15 124/36 99 Mechanical Ventilator 30 09/25/16 04:00 30 09/25/16 04:00 90 09/25/16 03:06 89 18 30 09/25/16 03:00 90 20 119/33 99 Mechanical Ventilator 30 09/25/16 02:00 91 21 119/33 100 Mechanical Ventilator 30 09/25/16 01:00 89 22 30 09/25/16 01:00 89 16 135/42 100 Mechanical Ventilator 30 09/25/16 00:00 30 09/25/16 00:00 89 09/25/16 00:00 98.7 89 20 122/42 98 Mechanical Ventilator 30 09/24/16 23:00 87 16 110/52 99 Mechanical Ventilator 30 09/24/16 23:00 88 18 30 09/24/16 22:00 85 16 118/41 97 Mechanical Ventilator 30 09/24/16 21:22 86 19 30 09/24/16 21:00 85 22 115/44 99 Mechanical Ventilator 30 09/24/16 20:00 30 09/24/16 20:00 84 09/24/16 20:00 98.2 84 20 115/44 99 Mechanical Ventilator 30 09/24/16 19:16 84 24 30 09/24/16 19:00 82 15 137/43 98 Mechanical Ventilator 30 09/24/16 18:00 81 15 121/38 98 Mechanical Ventilator 30 Status: obtunded Neck: trach Lungs: clear Objective: umbilical hernia Accucheck: CHLOE MCMILLAN Sep 25, 2016 17:54
[2016-09-25] MEDS ORDERED: D5 1/2NS 1,000 ML IV SCH (19:00)
--- NOTE | 2016-09-25 20:30 | Consultation ---
DATE OF CONSULTATION: 09/25/2016 CONSULTING PHYSICIAN: Dejuan Wahl M.D. REFERRING PHYSICIAN: Harrison Delatorre M.D. REASON FOR CONSULTATION: Pancreatitis and gallstones. HISTORY OF PRESENT ILLNESS: The patient is a 71-year-old male with multiple medical issues including coronary artery disease, history of cardiomyopathy, diabetes, hypertension, and renal failure on dialysis. He suffered a cardiorespiratory arrest and anoxic encephalopathy as well as status epilepticus. He has undergone a percutaneous endoscopic gastrostomy for feeding purposes and yesterday underwent tracheostomy. He has been nonresponsive. The patient had a CT scan several days ago which revealed findings consistent with pancreatitis and there were also gallstones. Review of laboratory data reveals that the liver function tests are completely normal except for minimal elevation of alkaline phosphatase. The amylase and lipase were significantly elevated. PHYSICAL EXAMINATION: GENERAL: The patient is unresponsive being ventilated via tracheostomy. ABDOMEN: Soft and appears nontender. IMPRESSION: 1. Status post cardiorespiratory arrest with anoxic encephalopathy, tracheostomy, and feeding gastrostomy. 2. Renal failure requiring dialysis. 3. Coronary artery disease. 4. History of cardiomyopathy. 5. Diabetes. 6. Hypertension. 7. Acute pancreatitis. 8. Cholelithiasis. DISCUSSION: While the patient's pancreatitis may have been caused by passage of a common duct stone, there is no evidence of biliary tract obstruction, and there is no indication for urgent surgical intervention of any kind. The patient is a very poor surgical candidate at any time in the future for cholecystectomy. If he becomes obstructed, consideration could be given to percutaneous cholecystostomy should that be required or percutaneous drainage of the biliary tract or ERCP if it should become obstructed by gallstones. The patient would likely not tolerate cholecystectomy at this time and in the presence of acute pancreatitis it is not indicated. Thank you for asking me to see the patient in consultation. I will follow him with you. Dejuan Wahl M.D. DR: Abdifatah JOB#: [id number] CC: ELTON
--- NOTE | 2016-09-25 21:11 | Cardiology Progress Note ---
Assessment/Plan Problem List: (1) Pneumonia (2) Enterobacter sepsis (3) CHF (congestive heart failure) (4) ESRD (end stage renal disease) (5) Anoxic encephalopathy syndrome (6) Pancreatitis, acute Status Narrative Pt is s/p resuscitated cardiac arrest due to asystole, felt due to respir failure/ hypoxia Remains encephalopathic, on vent, now s/p trach s/p PEG, but now w/ inc lipase/amylase c/w acute pancreatitis End stage renal disease, on chronic HD Assessment/Plan Continue supportive care, iv antibiotics, vent support, hemodialysis IV fluids/ NPO Further evaluation of pancreatitis per primary team. Subjective ROS Limited/Unobtainable: Yes Subjective Pt s/p PEG/ Trach. Sedated. Objective Last 24 Hour Vital Signs Date Time Temp Pulse Resp B/P Pulse Ox O2 Delivery O2 Flow Rate FiO2 09/25/16 19:00 96 33 137/47 100 Mechanical Ventilator 30 09/25/16 18:41 97 24 30 09/25/16 18:40 145/42 09/25/16 18:00 96 22 145/42 100 Mechanical Ventilator 30 09/25/16 17:00 97.6 94 18 144/39 100 Mechanical Ventilator 30 09/25/16 16:58 72 13 30 09/25/16 16:32 Mechanical Ventilator 4.0 30 09/25/16 16:00 30 09/25/16 16:00 91 09/25/16 16:00 90 18 133/44 100 Mechanical Ventilator 30 09/25/16 15:03 90 29 30 09/25/16 15:00 87 19 129/38 100 Mechanical Ventilator 30 09/25/16 14:00 88 27 135/43 100 Mechanical Ventilator 30 09/25/16 13:00 84 22 151/47 100 Mechanical Ventilator 30 09/25/16 12:49 87 17 30 09/25/16 12:30 Mechanical Ventilator 4.0 30 09/25/16 12:00 99.4 88 20 104/31 100 Mechanical Ventilator 30 09/25/16 12:00 30 09/25/16 12:00 87 09/25/16 11:00 90 26 117/34 100 Mechanical Ventilator 30 09/25/16 10:55 90 19 30 09/25/16 10:00 89 20 101/37 100 Mechanical Ventilator 30 09/25/16 09:00 90 24 135/39 100 Mechanical Ventilator 30 09/25/16 09:00 135/39 09/25/16 09:00 91 135/39 09/25/16 08:58 91 18 30 09/25/16 08:02 78 18 100 09/25/16 08:00 91 09/25/16 08:00 30 09/25/16 08:00 98.7 95 24 116/39 100 Mechanical Ventilator 30 09/25/16 07:00 91 20 128/50 100 Mechanical Ventilator 30 09/25/16 06:53 91 28 30 09/25/16 06:00 91 20 104/38 100 Mechanical Ventilator 30 09/25/16 05:25 90 16 30 09/25/16 05:00 90 20 127/38 100 Mechanical Ventilator 30 09/25/16 04:00 99.2 89 15 124/36 99 Mechanical Ventilator 30 09/25/16 04:00 30 09/25/16 04:00 90 09/25/16 03:06 89 18 30 09/25/16 03:00 90 20 119/33 99 Mechanical Ventilator 30 09/25/16 02:00 91 21 119/33 100 Mechanical Ventilator 30 09/25/16 01:00 89 22 30 09/25/16 01:00 89 16 135/42 100 Mechanical Ventilator 30 09/25/16 00:00 30 09/25/16 00:00 89 09/25/16 00:00 98.7 89 20 122/42 98 Mechanical Ventilator 30 09/24/16 23:00 87 16 110/52 99 Mechanical Ventilator 30 09/24/16 23:00 88 18 30 09/24/16 22:00 85 16 118/41 97 Mechanical Ventilator 30 09/24/16 21:22 86 19 30 General Appearance: WD/WN, on vent Neck: other - trach in place Rhythm: NSR Cardiovascular: regular rhythm, no gallop/murmur Respiratory/Chest: lungs clear - clear anteriorly Abdomen: soft, other - dec BS. g tube - site clean Extremities: no swelling Intake and Output 09/24/16 09/25/16 19:00 07:00 Intake Total 505 ml 100 ml Balance 505 ml 100 ml Free Water 30 ml IV Total 275 ml Other 200 ml 100 ml # Voids 2 2 # Bowel Movements 3 Laboratory Tests Test 09/25/16 04:00 White Blood Count 14.7 K/UL (4.8-10.8) H Red Blood Count 2.79 M/UL (4.70-6.10) L Hemoglobin 8.9 G/DL (14.2-18.0) L Hematocrit 27.5 % (42.0-52.0) L Mean Corpuscular Volume 98 FL (80-99) Mean Corpuscular Hemoglobin 31.9 PG (27.0-31.0) H Mean Corpuscular Hemoglobin Concent 32.4 G/DL (32.0-36.0) Red Cell Distribution Width 15.4 % (11.6-14.8) H Platelet Count 229 K/UL (150-450) Mean Platelet Volume 6.6 FL (6.5-10.1) Neutrophils (%) (Auto) 75.9 % (45.0-75.0) H Lymphocytes (%) (Auto) 7.3 % (20.0-45.0) L Monocytes (%) (Auto) 13.6 % (1.0-10.0) H Eosinophils (%) (Auto) 0.4 % (0.0-3.0) Basophils (%) (Auto) 2.8 % (0.0-2.0) H Sodium Level 144 mEQ/L (135-145) Potassium Level 4.1 mEQ/L (3.4-4.9) Chloride Level 93 mEQ/L (98-107) L Carbon Dioxide Level 28 mEQ/L (20-30) Anion Gap 23 (5-15) H Blood Urea Nitrogen 78 mg/dL (7-23) H Creatinine 7.6 mg/dL (0.7-1.2) H Estimat Glomerular Filtration Rate 7.1 mL/min (>60) Glucose Level 206 mg/dL (74-106) H Calcium Level 9.6 mg/dL (8.6-10.2) Phosphorus Level 6.2 mg/dL (2.5-4.8) H Total Bilirubin 0.2 mg/dL (0.0-1.2) Aspartate Amino Transf (AST/SGOT) 39 U/L (5-40) Alanine Aminotransferase (ALT/SGPT) 12 U/L (3-41) Alkaline Phosphatase 114 U/L (40-129) Total Protein 7.4 g/dL (6.6-8.7) Albumin 2.7 g/dL (3.5-5.2) L Globulin 4.7 g/dL Albumin/Globulin Ratio 0.5 (1.0-2.7) L Amylase Level 549 U/L (10-110) *H Lipase 990 U/L (< 60) H Hepatitis A IgM Antibody Pending Hepatitis B Surface Antigen Pending Hepatitis B Core IgM Antibody Pending Hepatitis C Antibody Pending ANGEL MARCIAL Sep 25, 2016 21:11
[2016-09-25] MEDS: Phenytoin 500 MG in NS 110 ML IVPB SCH (21:25)
[2016-09-26] VITALS (14 sets, daily range): BP systolic 90–142; BP diastolic 29–88
[2016-09-26] MEDS: Metoclopramide 10mg/10ml Liq NG SCH ×4 (00:10→18:04)
[2016-09-26] MEDS: NovoLOG Insulin Flexpen SUBQ SCH ×4 (00:12→18:18)
[2016-09-26 05:47] LABS: EOSINOPHILS % (AUTO) 0.6 % (0.0-3.0); LYMPHOCYTES % (AUTO) 9.1 % (20.0-45.0); MEAN CORPUSCULAR HEMOGLOBIN 31.4 PG (27.0-31.0); MEAN CORPUSCULAR HGB CONC 31.6 G/DL (32.0-36.0); MEAN CORPUSCULAR VOLUME 99 FL (80-99); MEAN PLATELET VOLUME 7.8 FL (6.5-10.1); MONOCYTES % (AUTO) 12.3 % (1.0-10.0); PLATELET COUNT 283 K/UL (150-450); RED BLOOD COUNT 2.74 M/UL (4.70-6.10); RED CELL DISTRIBUTION WIDTH 15.8 % (11.6-14.8); WHITE BLOOD COUNT 15.9 K/UL (4.8-10.8)
[2016-09-26 06:12] LABS: BILIRUBIN,DIRECT 0.1 mg/dL (0.1-0.3); TOTAL PROTEIN 7.1 g/dL (6.6-8.7)
[2016-09-26 06:14] LABS: ALBUMIN/GLOBULIN RATIO 0.5 (1.0-2.7); CALCIUM 9.4 mg/dL (8.6-10.2); CREATININE 5.4 mg/dL (0.7-1.2); GLOMERULAR FILTRATION RATE 10.6 mL/min (>60); POTASSIUM 3.4 mEQ/L (3.4-4.9); TOTAL PROTEIN 7.1 g/dL (6.6-8.7)
--- NOTE | 2016-09-26 08:30 | General Progress Note ---
Assessment/Plan Assessment/Plan Assessment - possible DM gastroparesis - Acute pancreatitis, presumed due to gallstone - Leukocytosis - encephalopathy - resp failure - DM - renal failure - Anemia, presumed due to renal failure Recommendations - PPI - Reglan / bethanecol - Hold TF for now - follow pancreatic enzymes - IVF per Renal Subjective Allergies: Coded Allergies: NIACIN (Verified Allergy, Unknown, ITCHING, 01/30/12) Subjective Above noted uneventful night off feeds surgical eval appreciated Objective Last 24 Hour Vital Signs Date Time Temp Pulse Resp B/P Pulse Ox O2 Delivery O2 Flow Rate FiO2 09/26/16 07:00 86 21 119/37 100 Mechanical Ventilator 30 09/26/16 06:00 88 21 103/32 100 Mechanical Ventilator 30 09/26/16 05:10 86 16 30 09/26/16 05:00 87 22 122/32 100 Mechanical Ventilator 30 09/26/16 04:00 88 09/26/16 04:00 98.0 88 22 139/88 100 Mechanical Ventilator 30 09/26/16 04:00 30 09/26/16 03:10 84 14 30 09/26/16 03:00 84 18 120/40 100 Mechanical Ventilator 30 09/26/16 02:00 85 17 90/37 99 Mechanical Ventilator 30 09/26/16 01:20 91 25 30 09/26/16 01:00 87 17 120/37 99 Mechanical Ventilator 30 09/26/16 00:00 89 09/26/16 00:00 30 09/26/16 00:00 98.2 91 20 100/36 100 Mechanical Ventilator 30 09/25/16 23:06 87 18 30 09/25/16 23:00 90 20 91/27 100 Mechanical Ventilator 30 09/25/16 22:00 95 20 152/51 100 Mechanical Ventilator 30 09/25/16 21:16 95 17 30 09/25/16 21:00 97 21 137/36 100 Mechanical Ventilator 30 09/25/16 20:00 98 09/25/16 20:00 98.0 98 21 120/47 100 Mechanical Ventilator 30 09/25/16 20:00 30 09/25/16 19:00 96 33 137/47 100 Mechanical Ventilator 30 09/25/16 18:41 97 24 30 09/25/16 18:40 145/42 09/25/16 18:00 96 22 145/42 100 Mechanical Ventilator 30 09/25/16 17:00 97.6 94 18 144/39 100 Mechanical Ventilator 30 09/25/16 16:58 72 13 30 09/25/16 16:32 Mechanical Ventilator 4.0 30 09/25/16 16:00 30 09/25/16 16:00 91 09/25/16 16:00 90 18 133/44 100 Mechanical Ventilator 30 09/25/16 15:03 90 29 30 09/25/16 15:00 87 19 129/38 100 Mechanical Ventilator 30 09/25/16 14:00 88 27 135/43 100 Mechanical Ventilator 30 09/25/16 13:00 84 22 151/47 100 Mechanical Ventilator 30 09/25/16 12:49 87 17 30 09/25/16 12:30 Mechanical Ventilator 4.0 30 09/25/16 12:00 99.4 88 20 104/31 100 Mechanical Ventilator 30 09/25/16 12:00 30 09/25/16 12:00 87 09/25/16 11:00 90 26 117/34 100 Mechanical Ventilator 30 09/25/16 10:55 90 19 30 09/25/16 10:00 89 20 101/37 100 Mechanical Ventilator 30 09/25/16 09:00 90 24 135/39 100 Mechanical Ventilator 30 09/25/16 09:00 135/39 09/25/16 09:00 91 135/39 09/25/16 08:58 91 18 30 Intake and Output 09/25/16 09/26/16 19:00 07:00 Intake Total 10 ml 500 ml Output Total 2100 ml Balance -2090 ml 500 ml IV Total 500 ml Other 10 ml Hemodialysis UF 2100 ml # Voids 1 2 # Bowel Movements 2 3 Laboratory Tests 09/26/16 04:45: White Blood Count 15.9H, Red Blood Count 2.74L, Hemoglobin 8.6L, Hematocrit 27.2L, Mean Corpuscular Volume 99, Mean Corpuscular Hemoglobin 31.4H, Mean Corpuscular Hemoglobin Concent 31.6L, Red Cell Distribution Width 15.8H, Platelet Count 283, Mean Platelet Volume 7.8, Neutrophils (%) (Auto) 75.0, Lymphocytes (%) (Auto) 9.1L, Monocytes (%) (Auto) 12.3H, Eosinophils (%) (Auto) 0.6, Basophils (%) (Auto) 3.0H, Sodium Level 144, Potassium Level 3.4, Chloride Level 96L, Carbon Dioxide Level 31H, Anion Gap 17H, Blood Urea Nitrogen 47#H, Creatinine 5.4H, Estimat Glomerular Filtration Rate 10.6, Glucose Level 153H, Calcium Level 9.4, Total Bilirubin 0.3, Direct Bilirubin 0.1, Aspartate Amino Transf (AST/SGOT) 35, Alanine Aminotransferase (ALT/SGPT) 8, Alkaline Phosphatase 110, Total Protein 7.1, Albumin 2.5L, Globulin 4.5, Albumin/ Globulin Ratio 0.5L, Amylase Level 527*H, Lipase 975H Height (Feet): 5 Height (Inches): 9.00 Weight (Pounds): 166 Objective Intubated and unresponsive NCAT, (+)trach supple Coarse BS RR soft ND abdomen, (+) umbilical hernia w/o change, (+) GT no edema unresponsive ANNE CURRAN Sep 26, 2016 08:30
[2016-09-26] MEDS: Bethanechol 10mg Tab ORAL SCH ×3 (09:23→18:04)
[2016-09-26] MEDS: Minoxidil 10mg tab GT SCH ×2 (09:23→18:04)
[2016-09-26] MEDS: Phenytoin Susp 100mg/4ml GT SCH ×2 (09:24→21:17)
[2016-09-26] MEDS: Valproic Acid 250mg/5ml Liquid GT SCH ×2 (09:24→21:09)
[2016-09-26] MEDS: Heparin 5000 units/ml inj SUBQ SCH ×2 (09:31→21:10)
[2016-09-26] MEDS: D5 1/2NS 1,000 ML IV SCH (11:53)
--- NOTE | 2016-09-26 12:28 | Critical Care Progress Note ---
Assessment/Plan Assessment/Plan 1. Status post cardiac arrest. 2. Renal failure with hyperkalemia. 3. Respiratory failure. 4. Anoxic, ischemic encephalopathy. 5. Status epilepticus, controlled 6. Coronary artery disease. 7. Cardiomyopathy. 8. Diabetes. 9. Hypertension. WBC stable weaning trial not possible due to high RR cont vent support Critical Care - Subjective ROS Limited/Unobtainable: Yes Condition: stable IV Access: dialysis access I&O: Intake and Output 09/25/16 09/26/16 19:00 07:00 Intake Total 10 ml 500 ml Output Total 2100 ml Balance -2090 ml 500 ml IV Total 500 ml Other 10 ml Hemodialysis UF 2100 ml # Voids 1 2 # Bowel Movements 2 3 Critical Care - Objective ET-Tube: 8.0 ET Position: 24 Last 24 Hour Vital Signs Date Time Temp Pulse Resp B/P Pulse Ox O2 Delivery O2 Flow Rate FiO2 09/26/16 10:45 82 15 30 09/26/16 10:00 85 31 100/29 98 Mechanical Ventilator 30 09/26/16 09:23 133/41 09/26/16 09:23 85 133/41 09/26/16 09:00 84 32 131/37 100 Mechanical Ventilator 30 09/26/16 08:58 83 13 30 09/26/16 08:00 85 09/26/16 08:00 99.3 88 29 142/41 100 Mechanical Ventilator 30 09/26/16 08:00 30 09/26/16 07:09 85 14 30 09/26/16 07:00 86 21 119/37 100 Mechanical Ventilator 30 09/26/16 06:00 88 21 103/32 100 Mechanical Ventilator 30 09/26/16 05:10 86 16 30 09/26/16 05:00 87 22 122/32 100 Mechanical Ventilator 30 09/26/16 04:00 88 09/26/16 04:00 98.0 88 22 139/88 100 Mechanical Ventilator 30 09/26/16 04:00 30 09/26/16 03:10 84 14 30 09/26/16 03:00 84 18 120/40 100 Mechanical Ventilator 30 09/26/16 02:00 85 17 90/37 99 Mechanical Ventilator 30 09/26/16 01:20 91 25 30 09/26/16 01:00 87 17 120/37 99 Mechanical Ventilator 30 09/26/16 00:00 89 09/26/16 00:00 30 09/26/16 00:00 98.2 91 20 100/36 100 Mechanical Ventilator 30 09/25/16 23:06 87 18 30 09/25/16 23:00 90 20 91/27 100 Mechanical Ventilator 30 09/25/16 22:00 95 20 152/51 100 Mechanical Ventilator 30 09/25/16 21:16 95 17 30 09/25/16 21:00 97 21 137/36 100 Mechanical Ventilator 30 09/25/16 20:00 98 09/25/16 20:00 98.0 98 21 120/47 100 Mechanical Ventilator 30 09/25/16 20:00 30 09/25/16 19:00 96 33 137/47 100 Mechanical Ventilator 30 09/25/16 18:41 97 24 30 09/25/16 18:40 145/42 09/25/16 18:00 96 22 145/42 100 Mechanical Ventilator 30 09/25/16 17:00 97.6 94 18 144/39 100 Mechanical Ventilator 30 09/25/16 16:58 72 13 30 09/25/16 16:32 Mechanical Ventilator 4.0 30 09/25/16 16:00 30 09/25/16 16:00 91 09/25/16 16:00 90 18 133/44 100 Mechanical Ventilator 30 09/25/16 15:03 90 29 30 09/25/16 15:00 87 19 129/38 100 Mechanical Ventilator 30 09/25/16 14:00 88 27 135/43 100 Mechanical Ventilator 30 09/25/16 13:00 84 22 151/47 100 Mechanical Ventilator 30 09/25/16 12:49 87 17 30 09/25/16 12:30 Mechanical Ventilator 4.0 30 Status: obtunded Lungs: clear Heart: normal rate Objective: umbilical hernia Accucheck: CHLOE DICKENS Sep 26, 2016 12:28
--- NOTE | 2016-09-26 13:13 | Infectious Diseases Prog Note ---
Assessment/Plan Assessment/Plan antibiotics : levoquin A 1. enterobacter pneumonia 2. respiratory failure 3. renal failure 4. leucocytosis 5. s/p cardiac arrest P 1. continue levoquin 2. will follow up cultures Subjective ROS Limited/Unobtainable: Yes Allergies: Coded Allergies: NIACIN (Verified Allergy, Unknown, ITCHING, 01/30/12) Objective Vital Signs Last 24 Hour Vital Signs Date Time Temp Pulse Resp B/P Pulse Ox O2 Delivery O2 Flow Rate FiO2 09/26/16 12:54 98.1 09/26/16 12:00 30 09/26/16 10:45 82 15 30 09/26/16 10:00 85 31 100/29 98 Mechanical Ventilator 30 09/26/16 09:23 133/41 09/26/16 09:23 85 133/41 09/26/16 09:00 84 32 131/37 100 Mechanical Ventilator 30 09/26/16 08:58 83 13 30 09/26/16 08:00 85 09/26/16 08:00 99.3 88 29 142/41 100 Mechanical Ventilator 30 09/26/16 08:00 30 09/26/16 07:09 85 14 30 09/26/16 07:00 86 21 119/37 100 Mechanical Ventilator 30 09/26/16 06:00 88 21 103/32 100 Mechanical Ventilator 30 09/26/16 05:10 86 16 30 09/26/16 05:00 87 22 122/32 100 Mechanical Ventilator 30 09/26/16 04:00 88 09/26/16 04:00 98.0 88 22 139/88 100 Mechanical Ventilator 30 09/26/16 04:00 30 09/26/16 03:10 84 14 30 09/26/16 03:00 84 18 120/40 100 Mechanical Ventilator 30 09/26/16 02:00 85 17 90/37 99 Mechanical Ventilator 30 09/26/16 01:20 91 25 30 09/26/16 01:00 87 17 120/37 99 Mechanical Ventilator 30 09/26/16 00:00 89 09/26/16 00:00 30 09/26/16 00:00 98.2 91 20 100/36 100 Mechanical Ventilator 30 09/25/16 23:06 87 18 30 09/25/16 23:00 90 20 91/27 100 Mechanical Ventilator 30 09/25/16 22:00 95 20 152/51 100 Mechanical Ventilator 30 09/25/16 21:16 95 17 30 09/25/16 21:00 97 21 137/36 100 Mechanical Ventilator 30 09/25/16 20:00 98 09/25/16 20:00 98.0 98 21 120/47 100 Mechanical Ventilator 30 09/25/16 20:00 30 09/25/16 19:00 96 33 137/47 100 Mechanical Ventilator 30 09/25/16 18:41 97 24 30 09/25/16 18:40 145/42 09/25/16 18:00 96 22 145/42 100 Mechanical Ventilator 30 09/25/16 17:00 97.6 94 18 144/39 100 Mechanical Ventilator 30 09/25/16 16:58 72 13 30 09/25/16 16:32 Mechanical Ventilator 4.0 30 09/25/16 16:00 30 09/25/16 16:00 91 09/25/16 16:00 90 18 133/44 100 Mechanical Ventilator 30 09/25/16 15:03 90 29 30 09/25/16 15:00 87 19 129/38 100 Mechanical Ventilator 30 09/25/16 14:00 88 27 135/43 100 Mechanical Ventilator 30 Height (Feet): 5 Height (Inches): 9.00 Weight (Pounds): 166 HEENT: status post trach Respiratory/Chest: lungs clear Cardiovascular: normal rate, regular rhythm, no gallop/murmur Abdomen: soft, non tender, other - GT Extremities: no edema Laboratory Tests Test 09/26/16 04:45 White Blood Count 15.9 K/UL (4.8-10.8) H Red Blood Count 2.74 M/UL (4.70-6.10) L Hemoglobin 8.6 G/DL (14.2-18.0) L Hematocrit 27.2 % (42.0-52.0) L Mean Corpuscular Volume 99 FL (80-99) Mean Corpuscular Hemoglobin 31.4 PG (27.0-31.0) H Mean Corpuscular Hemoglobin Concent 31.6 G/DL (32.0-36.0) L Red Cell Distribution Width 15.8 % (11.6-14.8) H Platelet Count 283 K/UL (150-450) Mean Platelet Volume 7.8 FL (6.5-10.1) Neutrophils (%) (Auto) 75.0 % (45.0-75.0) Lymphocytes (%) (Auto) 9.1 % (20.0-45.0) L Monocytes (%) (Auto) 12.3 % (1.0-10.0) H Eosinophils (%) (Auto) 0.6 % (0.0-3.0) Basophils (%) (Auto) 3.0 % (0.0-2.0) H Sodium Level 144 mEQ/L (135-145) Potassium Level 3.4 mEQ/L (3.4-4.9) Chloride Level 96 mEQ/L (98-107) L Carbon Dioxide Level 31 mEQ/L (20-30) H Anion Gap 17 (5-15) H Blood Urea Nitrogen 47 mg/dL (7-23) #H Creatinine 5.4 mg/dL (0.7-1.2) H Estimat Glomerular Filtration Rate 10.6 mL/min (>60) Glucose Level 153 mg/dL (74-106) H Calcium Level 9.4 mg/dL (8.6-10.2) Total Bilirubin 0.3 mg/dL (0.0-1.2) Direct Bilirubin 0.1 mg/dL (0.1-0.3) Aspartate Amino Transf (AST/SGOT) 35 U/L (5-40) Alanine Aminotransferase (ALT/SGPT) 8 U/L (3-41) Alkaline Phosphatase 110 U/L (40-129) Total Protein 7.1 g/dL (6.6-8.7) Albumin 2.5 g/dL (3.5-5.2) L Globulin 4.5 g/dL Albumin/Globulin Ratio 0.5 (1.0-2.7) L Amylase Level 527 U/L (10-110) *H Lipase 975 U/L (< 60) H LEWIS ADAMS Sep 26, 2016 13:13
--- NOTE | 2016-09-26 14:23 | Nephrology Progress Note ---
Assessment/Plan Problem List: (1) ESRD (end stage renal disease) (2) Anoxic encephalopathy syndrome (3) Respiratory failure with hypoxia (4) CHF (congestive heart failure) (5) HTN (hypertension) (6) Acute pancreatitis Plan HD in AM Vent support follow labs NPO TPN ? Subjective Subjective out of ICU S/P trach Objective Objective Last 24 Hour Vital Signs Date Time Temp Pulse Resp B/P Pulse Ox O2 Delivery O2 Flow Rate FiO2 09/26/16 12:54 98.1 09/26/16 12:00 83 09/26/16 12:00 30 09/26/16 12:00 100.0 85 18 116/43 100 Mechanical Ventilator 30 09/26/16 10:45 82 15 30 09/26/16 10:00 85 31 100/29 98 Mechanical Ventilator 30 09/26/16 09:23 133/41 09/26/16 09:23 85 133/41 09/26/16 09:00 84 32 131/37 100 Mechanical Ventilator 30 09/26/16 08:58 83 13 30 09/26/16 08:00 85 09/26/16 08:00 99.3 88 29 142/41 100 Mechanical Ventilator 30 09/26/16 08:00 30 09/26/16 07:09 85 14 30 09/26/16 07:00 86 21 119/37 100 Mechanical Ventilator 30 09/26/16 06:00 88 21 103/32 100 Mechanical Ventilator 30 09/26/16 05:10 86 16 30 09/26/16 05:00 87 22 122/32 100 Mechanical Ventilator 30 09/26/16 04:00 88 09/26/16 04:00 98.0 88 22 139/88 100 Mechanical Ventilator 30 09/26/16 04:00 30 09/26/16 03:10 84 14 30 09/26/16 03:00 84 18 120/40 100 Mechanical Ventilator 30 09/26/16 02:00 85 17 90/37 99 Mechanical Ventilator 30 09/26/16 01:20 91 25 30 09/26/16 01:00 87 17 120/37 99 Mechanical Ventilator 30 09/26/16 00:00 89 09/26/16 00:00 30 09/26/16 00:00 98.2 91 20 100/36 100 Mechanical Ventilator 30 09/25/16 23:06 87 18 30 09/25/16 23:00 90 20 91/27 100 Mechanical Ventilator 30 09/25/16 22:00 95 20 152/51 100 Mechanical Ventilator 30 09/25/16 21:16 95 17 30 09/25/16 21:00 97 21 137/36 100 Mechanical Ventilator 30 09/25/16 20:00 98 09/25/16 20:00 98.0 98 21 120/47 100 Mechanical Ventilator 30 09/25/16 20:00 30 09/25/16 19:00 96 33 137/47 100 Mechanical Ventilator 30 09/25/16 18:41 97 24 30 09/25/16 18:40 145/42 09/25/16 18:00 96 22 145/42 100 Mechanical Ventilator 30 09/25/16 17:00 97.6 94 18 144/39 100 Mechanical Ventilator 30 09/25/16 16:58 72 13 30 09/25/16 16:32 Mechanical Ventilator 4.0 30 09/25/16 16:00 30 09/25/16 16:00 91 09/25/16 16:00 90 18 133/44 100 Mechanical Ventilator 30 09/25/16 15:03 90 29 30 09/25/16 15:00 87 19 129/38 100 Mechanical Ventilator 30 Intake and Output 09/25/16 09/26/16 19:00 07:00 Intake Total 10 ml 500 ml Output Total 2100 ml Balance -2090 ml 500 ml IV Total 500 ml Other 10 ml Hemodialysis UF 2100 ml # Voids 1 2 # Bowel Movements 2 3 Laboratory Tests 09/26/16 04:45: White Blood Count 15.9H, Red Blood Count 2.74L, Hemoglobin 8.6L, Hematocrit 27.2L, Mean Corpuscular Volume 99, Mean Corpuscular Hemoglobin 31.4H, Mean Corpuscular Hemoglobin Concent 31.6L, Red Cell Distribution Width 15.8H, Platelet Count 283, Mean Platelet Volume 7.8, Neutrophils (%) (Auto) 75.0, Lymphocytes (%) (Auto) 9.1L, Monocytes (%) (Auto) 12.3H, Eosinophils (%) (Auto) 0.6, Basophils (%) (Auto) 3.0H, Sodium Level 144, Potassium Level 3.4, Chloride Level 96L, Carbon Dioxide Level 31H, Anion Gap 17H, Blood Urea Nitrogen 47#H, Creatinine 5.4H, Estimat Glomerular Filtration Rate 10.6, Glucose Level 153H, Calcium Level 9.4, Total Bilirubin 0.3, Direct Bilirubin 0.1, Aspartate Amino Transf (AST/SGOT) 35, Alanine Aminotransferase (ALT/SGPT) 8, Alkaline Phosphatase 110, Total Protein 7.1, Albumin 2.5L, Globulin 4.5, Albumin/ Globulin Ratio 0.5L, Amylase Level 527*H, Lipase 975H Height (Feet): 5 Height (Inches): 9.00 Weight (Pounds): 166 Cardiovascular: normal rate Respiratory/Chest: rhonchi - bilaterally Extremities: other - no edema CANDICE BREAUX Sep 26, 2016 14:23
--- NOTE | 2016-09-26 17:15 | Internal Med Progress Note ---
Subjective Date of Service: Sep 26, 2016 Physician Name Filiberto Clancy Attending Physician Harrison Delatorre Current Medications Medications (Trade) Dose Ordered Sig/Mark Route PRN Reason Start Time Stop Time Status Last Admin Dose Admin Acetaminophen (Tylenol) 650 mg Q4H PRN ORAL Mild Pain (Pain Scale 1-3) 09/26/16 11:00 10/26/16 10:59 09/26/16 11:55 Amlodipine Besylate (Norvasc) 10 mg DAILY GT 09/27/16 09:00 10/27/16 08:59 Bethanechol Chloride (Urecholine) 10 mg THREE TIMES A DAY ORAL 09/26/16 13:00 10/26/16 12:59 09/26/16 12:03 Chlorhexidine Gluconate (Lakshmi-Hex 2%) 1 applic Q24H TOPIC 09/26/16 21:00 10/26/16 20:59 Dextrose (Dextrose 50%) STAT PRN IV Hypoglycemia 09/26/16 23:00 10/26/16 22:59 Dextrose/Sodium Chloride 1,000 ml @ 50 mls/hr Q20H IV 09/26/16 12:00 10/26/16 11:59 09/26/16 11:53 Heparin Sodium (Porcine) (Heparin 5000 units/ml) 5,000 units EVERY 12 HOURS SUBQ 09/26/16 21:00 10/26/16 20:59 Heparin Sodium (Porcine) (Heparin 5000 units/ml) 5,000 units POSTHD INJ 09/27/16 06:00 09/27/16 23:59 Heparin Sodium (Porcine) (Heparin Sod 1000 units/ml 10ml) 500 unit ONCE IV 09/27/16 06:00 09/27/16 23:59 Insulin Aspart (NovoLOG) EVERY 6 HOURS SUBQ 09/26/16 12:00 10/26/16 11:59 Lansoprazole (Prevacid) 30 mg DAILY GT 09/27/16 09:00 10/27/16 08:59 Levofloxacin (Levaquin) 500 mg Q48H NG 09/26/16 18:00 10/03/16 17:59 Metoclopramide HCl (Reglan) 5 mg Q6HR NG 09/26/16 12:00 10/26/16 11:59 09/26/16 11:53 Minoxidil (Loniten) 15 mg BID GT 09/26/16 18:00 10/26/16 17:59 Phenytoin (Dilantin) 300 mg Q12HR GT 09/26/16 21:00 10/26/16 20:59 Phenytoin/Sodium Chloride (Dilantin/Sodium Chloride) 120 ml @ 120 mls/hr POSTHD IVPB 09/26/16 21:00 10/26/16 20:59 Polyethylene Glycol (Miralax) 17 gm DAILYPRN PRN ORAL Constipation 09/26/16 23:00 10/26/16 22:59 Sodium Chloride (Sodium Chloride 1000ml bag) 1,000 ml @ 500 mls/hr Q2H PRN IVLG sbp<90 during hd 09/27/16 06:00 09/27/16 23:59 Valproic Acid (Depakene) 1,000 mg POSTHD GT 09/26/16 11:00 10/26/16 10:59 Valproic Acid 1500 mg 1,500 mg Q12HR GT 09/26/16 21:00 10/26/16 20:59 Allergies: Coded Allergies: NIACIN (Verified Allergy, Unknown, ITCHING, 01/30/12) ROS Limited/Unobtainable: Yes Subjective 71 YO M admitted with volume overload and respiratory failure. S/P cardiopulmonary arrest. WILD. Intubated and sedated. Cover for Int Med-Dr [place]. S/P PEG 09/23/16. S/P Tracheostomy 09/24/16 Objective Last Vital Signs Date Time Temp Pulse Resp B/P Pulse Ox O2 Delivery O2 Flow Rate FiO2 09/26/16 16:00 30 09/26/16 16:00 99.1 80 18 123/45 100 Mechanical Ventilator 09/25/16 16:32 4.0 Laboratory Tests Test 09/26/16 04:45 White Blood Count 15.9 K/UL (4.8-10.8) H Red Blood Count 2.74 M/UL (4.70-6.10) L Hemoglobin 8.6 G/DL (14.2-18.0) L Hematocrit 27.2 % (42.0-52.0) L Mean Corpuscular Volume 99 FL (80-99) Mean Corpuscular Hemoglobin 31.4 PG (27.0-31.0) H Mean Corpuscular Hemoglobin Concent 31.6 G/DL (32.0-36.0) L Red Cell Distribution Width 15.8 % (11.6-14.8) H Platelet Count 283 K/UL (150-450) Mean Platelet Volume 7.8 FL (6.5-10.1) Neutrophils (%) (Auto) 75.0 % (45.0-75.0) Lymphocytes (%) (Auto) 9.1 % (20.0-45.0) L Monocytes (%) (Auto) 12.3 % (1.0-10.0) H Eosinophils (%) (Auto) 0.6 % (0.0-3.0) Basophils (%) (Auto) 3.0 % (0.0-2.0) H Sodium Level 144 mEQ/L (135-145) Potassium Level 3.4 mEQ/L (3.4-4.9) Chloride Level 96 mEQ/L (98-107) L Carbon Dioxide Level 31 mEQ/L (20-30) H Anion Gap 17 (5-15) H Blood Urea Nitrogen 47 mg/dL (7-23) #H Creatinine 5.4 mg/dL (0.7-1.2) H Estimat Glomerular Filtration Rate 10.6 mL/min (>60) Glucose Level 153 mg/dL (74-106) H Calcium Level 9.4 mg/dL (8.6-10.2) Total Bilirubin 0.3 mg/dL (0.0-1.2) Direct Bilirubin 0.1 mg/dL (0.1-0.3) Aspartate Amino Transf (AST/SGOT) 35 U/L (5-40) Alanine Aminotransferase (ALT/SGPT) 8 U/L (3-41) Alkaline Phosphatase 110 U/L (40-129) Total Protein 7.1 g/dL (6.6-8.7) Albumin 2.5 g/dL (3.5-5.2) L Globulin 4.5 g/dL Albumin/Globulin Ratio 0.5 (1.0-2.7) L Amylase Level 527 U/L (10-110) *H Lipase 975 U/L (< 60) H Intake and Output 09/25/16 09/26/16 19:00 07:00 Intake Total 10 ml 500 ml Output Total 2100 ml Balance -2090 ml 500 ml IV Total 500 ml Other 10 ml Hemodialysis UF 2100 ml # Voids 1 2 # Bowel Movements 2 3 Objective General Appearance: WD/WN, lethargic EENT: PERRL/EOMI, normal ENT inspection, TMs normal Neck: non-tender, normal alignment, supple Cardiovascular: normal peripheral pulses, normal rate, regular rhythm, no gallop/murmur, no JVD Respiratory/Chest: Mech vent; chest wall non-tender, crackles/rales, rhonchi - bilaterally, expiratory wheezing Abdomen: normal bowel sounds, non tender, soft, no organomegaly Skin: normal pigmentation, warm/dry Assessment/Plan Problem List: (1) HTN (hypertension) Assessment & Plan: Cont amlodipine. (2) Hyperkalemia (3) Respiratory failure with hypoxia Assessment & Plan: Intubated and sedated. S/P Tracheostomy 09/24/16. (4) ESRD (end stage renal disease) Assessment & Plan: See nephrology note. Last Hemodialysis 09/23/16 per nephrology (5) CHF (congestive heart failure) (6) Diabetes mellitus Assessment & Plan: Cont novolog sliding scale. 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 (9) Anoxic encephalopathy syndrome Assessment & Plan: See neruo note. (10) Enterobacter sepsis (11) Pneumonia Assessment & Plan: Enterobacter. Cont Levaquin per ID (12) Anemia (13) Dysphagia Assessment & Plan: S/P PEG 09/23/16. (14) Cholecystitis, acute Assessment & Plan: See Surgery note. Not surgical candidate at this time. (15) Pancreatitis, acute Assessment & Plan: See GI note. Hold tube feeds. Pancrelipase. Assessment/Plan Discharge to [facility] when accepted-see case management note. FILIBERTO CLANCY Sep 26, 2016 17:15
[2016-09-26] MEDS ORDERED: Levofloxacin 500mg tab NG SCH (18:00)
[2016-09-26] MEDS ORDERED: Phenytoin 250mg/5ml vial ONE (19:58)
--- NOTE | 2016-09-26 20:19 | Cardiology Progress Note ---
Assessment/Plan Problem List: (1) Pneumonia (2) Enterobacter sepsis (3) CHF (congestive heart failure) (4) ESRD (end stage renal disease) (5) Anoxic encephalopathy syndrome (6) Pancreatitis, acute Status: not improved, unchanged Status Narrative Pt transferred out of ICU. Remains encephalopathic, but less sedated. Inc amylase, lipase . GI evaluation noted. Assessment/Plan Continue supportive care, iv antibiotics, vent support, hemodialysis Hold tube feeds until pancreatitis has improved. IV hydration. Overall prognosis poor. Subjective ROS Limited/Unobtainable: Yes Subjective Pt agitated; moves upper extrem but not purposefully Objective Last 24 Hour Vital Signs Date Time Temp Pulse Resp B/P Pulse Ox O2 Delivery O2 Flow Rate FiO2 09/26/16 19:40 84 27 30 09/26/16 18:04 123/45 09/26/16 17:29 81 15 30 09/26/16 16:00 80 09/26/16 16:00 30 09/26/16 16:00 99.1 80 18 123/45 100 Mechanical Ventilator 30 09/26/16 15:27 86 13 30 09/26/16 13:10 82 14 30 09/26/16 12:54 98.1 09/26/16 12:00 83 09/26/16 12:00 30 09/26/16 12:00 100.0 85 18 116/43 100 Mechanical Ventilator 30 09/26/16 10:45 82 15 30 09/26/16 10:00 85 31 100/29 98 Mechanical Ventilator 30 09/26/16 09:23 133/41 09/26/16 09:23 85 133/41 09/26/16 09:00 84 32 131/37 100 Mechanical Ventilator 30 09/26/16 08:58 83 13 30 09/26/16 08:00 85 09/26/16 08:00 99.3 88 29 142/41 100 Mechanical Ventilator 30 09/26/16 08:00 30 09/26/16 07:09 85 14 30 09/26/16 07:00 86 21 119/37 100 Mechanical Ventilator 30 09/26/16 06:00 88 21 103/32 100 Mechanical Ventilator 30 09/26/16 05:10 86 16 30 09/26/16 05:00 87 22 122/32 100 Mechanical Ventilator 30 09/26/16 04:00 88 09/26/16 04:00 98.0 88 22 139/88 100 Mechanical Ventilator 30 09/26/16 04:00 30 09/26/16 03:10 84 14 30 09/26/16 03:00 84 18 120/40 100 Mechanical Ventilator 30 09/26/16 02:00 85 17 90/37 99 Mechanical Ventilator 30 09/26/16 01:20 91 25 30 09/26/16 01:00 87 17 120/37 99 Mechanical Ventilator 30 09/26/16 00:00 89 09/26/16 00:00 30 09/26/16 00:00 98.2 91 20 100/36 100 Mechanical Ventilator 30 09/25/16 23:06 87 18 30 09/25/16 23:00 90 20 91/27 100 Mechanical Ventilator 30 09/25/16 22:00 95 20 152/51 100 Mechanical Ventilator 30 09/25/16 21:16 95 17 30 09/25/16 21:00 97 21 137/36 100 Mechanical Ventilator 30 General Appearance: WD/WN, on vent EENT: PERRL/EOMI Neck: other - trach site clean Rhythm: NSR Cardiovascular: normal rate, regular rhythm, no gallop/murmur Respiratory/Chest: lungs clear - clear anteriorly Abdomen: soft, decreased bowel sounds, distended, other - + g tube Extremities: no swelling Intake and Output 09/25/16 09/26/16 19:00 07:00 Intake Total 10 ml 500 ml Output Total 2100 ml Balance -2090 ml 500 ml IV Total 500 ml Other 10 ml Hemodialysis UF 2100 ml # Voids 1 2 # Bowel Movements 2 3 Laboratory Tests Test 09/26/16 04:45 White Blood Count 15.9 K/UL (4.8-10.8) H Red Blood Count 2.74 M/UL (4.70-6.10) L Hemoglobin 8.6 G/DL (14.2-18.0) L Hematocrit 27.2 % (42.0-52.0) L Mean Corpuscular Volume 99 FL (80-99) Mean Corpuscular Hemoglobin 31.4 PG (27.0-31.0) H Mean Corpuscular Hemoglobin Concent 31.6 G/DL (32.0-36.0) L Red Cell Distribution Width 15.8 % (11.6-14.8) H Platelet Count 283 K/UL (150-450) Mean Platelet Volume 7.8 FL (6.5-10.1) Neutrophils (%) (Auto) 75.0 % (45.0-75.0) Lymphocytes (%) (Auto) 9.1 % (20.0-45.0) L Monocytes (%) (Auto) 12.3 % (1.0-10.0) H Eosinophils (%) (Auto) 0.6 % (0.0-3.0) Basophils (%) (Auto) 3.0 % (0.0-2.0) H Sodium Level 144 mEQ/L (135-145) Potassium Level 3.4 mEQ/L (3.4-4.9) Chloride Level 96 mEQ/L (98-107) L Carbon Dioxide Level 31 mEQ/L (20-30) H Anion Gap 17 (5-15) H Blood Urea Nitrogen 47 mg/dL (7-23) #H Creatinine 5.4 mg/dL (0.7-1.2) H Estimat Glomerular Filtration Rate 10.6 mL/min (>60) Glucose Level 153 mg/dL (74-106) H Calcium Level 9.4 mg/dL (8.6-10.2) Total Bilirubin 0.3 mg/dL (0.0-1.2) Direct Bilirubin 0.1 mg/dL (0.1-0.3) Aspartate Amino Transf (AST/SGOT) 35 U/L (5-40) Alanine Aminotransferase (ALT/SGPT) 8 U/L (3-41) Alkaline Phosphatase 110 U/L (40-129) Total Protein 7.1 g/dL (6.6-8.7) Albumin 2.5 g/dL (3.5-5.2) L Globulin 4.5 g/dL Albumin/Globulin Ratio 0.5 (1.0-2.7) L Amylase Level 527 U/L (10-110) *H Lipase 975 U/L (< 60) H ANGEL MARCIAL Sep 26, 2016 20:19
[2016-09-26] MEDS ORDERED: Dyna-Hex 2% Top Sol 8oz TOPIC SCH (21:00)
[2016-09-26] MEDS: Dyna-Hex 2% Top Sol 8oz TOPIC SCH (21:10)
[2016-09-26] MEDS ORDERED: Miralax 17gm pkt ORAL PRN (23:00)
--- NOTE | 2016-09-26 23:53 | Wound Care Consultation ---
Wound Assessment Wound Assessment #1: Wound Number: #1 Wound Present on Admission: No New Wound: Yes Status Change of Wound: No Wound Location Body Site: perineal area Wound Type: chemical burn - with erosion Chiqui Test: Does not Chiqui Percent of Wound [place]/Red: 100 Wound Drainage Amount: None Wound Drainage Odor: None/Absent Tissue Surrounding Wound: Erythemic Wound General Appearance: Reddened Wound Assessment #2: Wound Number: #2 Wound Present on Admission: No New Wound: Yes Status Change of Wound: No Wound Location Body Site Modif: left Wound Location Body Site: buttocks Wound Type: pressure ulcer Chiqui Test: Does not Chiqui Pressure Ulcer Stage: II Wound Thickness: Partial Thickness Wound Length: 2.0 Wound Width: 1.0 Wound Depth: <0.1 Wound Drainage Description: Serosanguineous Wound Drainage Amount: Scant Wound Drainage Odor: None/Absent Tissue Surrounding Wound: Macerated Wound General Appearance: Reddened Wound Assessment #3: Wound Number: #3 Wound Present on Admission: Yes New Wound: No Status Change of Wound: No Wound Location Body Site Modif: right Wound Location Body Site: sacral Wound Type: pressure ulcer Chiqui Test: Does not Chiqui Pressure Ulcer Stage: II Wound Thickness: Partial Thickness Wound Length: 1.0 Wound Width: 1.0 Wound Depth: <0.1 Percent of Wound [place]/Red: 100 Wound Drainage Description: Serosanguineous Wound Drainage Amount: Scant Wound Drainage Odor: None/Absent Tissue Surrounding Wound: Macerated Wound General Appearance: Reddened Wound Assessment #4: Wound Number: #4 Wound Present on Admission: No New Wound: Yes Status Change of Wound: No Wound Location Body Site Modif: right Wound Location Body Site: buttocks Wound Type: pressure ulcer Chiqui Test: Does not Chiqui Pressure Ulcer Stage: II Wound Thickness: Partial Thickness Wound Length: 4.0 Wound Width: 2.0 Wound Depth: 0.1 Percent of Wound [place]/Red: 100 Wound Drainage Description: Serosanguineous Wound Drainage Amount: Scant Wound Drainage Odor: None/Absent Tissue Surrounding Wound: Erythemic Wound General Appearance: Reddened Wound Assessment #5: Wound Number: #5 Wound Present on Admission: No New Wound: Yes Status Change of Wound: No Wound Location Body Site Modif: right, lower Wound Location Body Site: buttocks Wound Type: pressure ulcer Chiqui Test: Does not Chiqui Pressure Ulcer Stage: II Wound Thickness: Partial Thickness Wound Length: 1.0 Wound Width: 1.0 Wound Depth: <0.1 Percent of Wound [place]/Red: 100 Wound Drainage Description: Serosanguineous Wound Drainage Amount: Scant Wound Drainage Odor: None/Absent Tissue Surrounding Wound: Macerated Wound General Appearance: Reddened Wound Comment #1 perineal chemical burn with erosion. noted decrease in perineal erosion current treatment is effective. #2 left buttocks stage II pressure ulcer. #3 right sacral stage II pressure ulcer. #4 right buttock stage II pressure ulcer. #5 right lower buttocks stage II pressure ulcer. Upon reassessment noted perineal chemical burn with good progress ,noted stage II scattered pressure ulcers. Recommendation. - Local wound care as ordered. -Apply low air loss SPR mattress. -Keep clean and dry. -Turn and reposition. -Optimize nutrition. -Avoid shear and friction. -Heel protectors. -Offload heels and feet. -Assess and notify MD for any change of condition to skin noted. YONNY MURPHY Sep 26, 2016 23:53
[2016-09-27] VITALS: BP 111/51
[2016-09-27] MEDS: Metoclopramide 10mg/10ml Liq NG SCH ×5 (00:04→23:36)
[2016-09-27] MEDS: NovoLOG Insulin Flexpen SUBQ SCH ×5 (00:33→23:39)
[2016-09-27 04:00] VITALS: BP 140/54
[2016-09-27] MEDS: D5 1/2NS 1,000 ML IV SCH (05:29)
[2016-09-27] MEDS ORDERED: Heparin 5000 units/ml inj INJ SCH (06:00)
[2016-09-27] MEDS ORDERED: Heparin Sod 1000 units/ml 10ml IV SCH (06:00)
[2016-09-27 06:27] LABS: BASOPHILS % (AUTO) 2.5 % (0.0-2.0); EOSINOPHILS % (AUTO) 1.2 % (0.0-3.0); MEAN CORPUSCULAR HEMOGLOBIN 30.9 PG (27.0-31.0); MEAN CORPUSCULAR HGB CONC 30.5 G/DL (32.0-36.0); MEAN CORPUSCULAR VOLUME 101 FL (80-99); MEAN PLATELET VOLUME 6.1 FL (6.5-10.1); MONOCYTES % (AUTO) 10.6 % (1.0-10.0); NEUTROPHILS % (AUTO) 75.8 % (45.0-75.0); PLATELET COUNT 251 K/UL (150-450); RED BLOOD COUNT 2.59 M/UL (4.70-6.10); RED CELL DISTRIBUTION WIDTH 15.3 % (11.6-14.8); WHITE BLOOD COUNT 14.9 K/UL (4.8-10.8)
[2016-09-27 07:08] LABS: ALBUMIN/GLOBULIN RATIO 0.5 (1.0-2.7); CALCIUM 9.7 mg/dL (8.6-10.2); CREATININE 6.4 mg/dL (0.7-1.2); GLOMERULAR FILTRATION RATE 8.7 mL/min (>60); POTASSIUM 3.3 mEQ/L (3.4-4.9); TOTAL PROTEIN 6.8 g/dL (6.6-8.7)
[2016-09-27 08:00] VITALS: BP 110/57
--- NOTE | 2016-09-27 08:48 | General Progress Note ---
Assessment/Plan Problem List: (1) HTN (hypertension) ICD Codes: I10 - Essential (primary) hypertension SNOMED: 46968383 (2) COPD (chronic obstructive pulmonary disease) ICD Codes: J44.9 - Chronic obstructive pulmonary disease, unspecified SNOMED: 73041955 (3) ESRD (end stage renal disease) ICD Codes: N18.6 - End stage renal disease SNOMED: 06297960 (4) Diabetes mellitus ICD Codes: E11.9 - Type 2 diabetes mellitus without complications SNOMED: 74149229 (5) Pancreatitis, acute ICD Codes: K85.90 - Acute pancreatitis without necrosis or infection, unspecified SNOMED: 753700218 Assessment/Plan fu labs order abd CT lipid panel ?needs TPN Subjective ROS Limited/Unobtainable: Yes Allergies: Coded Allergies: NIACIN (Verified Allergy, Unknown, ITCHING, 01/30/12) Subjective no event Objective Last 24 Hour Vital Signs Date Time Temp Pulse Resp B/P Pulse Ox O2 Delivery O2 Flow Rate FiO2 09/27/16 08:00 100.3 86 25 110/57 97 Mechanical Ventilator 30 09/27/16 07:00 88 16 30 09/27/16 05:10 91 18 30 09/27/16 04:00 89 09/27/16 04:00 30 09/27/16 04:00 98.6 90 20 140/54 97 09/27/16 03:17 82 25 30 09/27/16 00:57 87 16 30 09/27/16 00:00 90 09/27/16 00:00 30 09/27/16 00:00 98.2 85 24 111/51 100 09/26/16 23:30 85 26 30 09/26/16 21:22 82 22 30 09/26/16 20:00 30 09/26/16 20:00 97.9 82 29 109/ 99 09/26/16 20:00 90 09/26/16 19:40 84 27 30 09/26/16 18:04 123/45 09/26/16 17:29 81 15 30 09/26/16 16:00 80 09/26/16 16:00 30 09/26/16 16:00 99.1 80 18 123/45 100 Mechanical Ventilator 30 09/26/16 15:27 86 13 30 09/26/16 13:10 82 14 30 09/26/16 12:54 98.1 6/23/17 12:00 83 09/26/16 12:00 30 09/26/16 12:00 100.0 85 18 116/43 100 Mechanical Ventilator 30 09/26/16 10:45 82 15 30 09/26/16 10:00 85 31 100/29 98 Mechanical Ventilator 30 09/26/16 09:23 133/41 09/26/16 09:23 85 133/41 09/26/16 09:00 84 32 131/37 100 Mechanical Ventilator 30 09/26/16 08:58 83 13 30 Intake and Output 09/26/16 09/27/16 19:00 07:00 Intake Total 430 ml 600 ml Balance 430 ml 600 ml IV Total 350 ml 600 ml Other 80 ml # Bowel Movements 5 5 Laboratory Tests 09/27/16 05:14: White Blood Count 14.9H, Red Blood Count 2.59L, Hemoglobin 8.0L, Hematocrit 26.2L, Mean Corpuscular Volume 101H, Mean Corpuscular Hemoglobin 30.9, Mean Corpuscular Hemoglobin Concent 30.5L, Red Cell Distribution Width 15.3H, Platelet Count 251, Mean Platelet Volume 6.1L, Neutrophils (%) (Auto) 75.8H, Lymphocytes (%) (Auto) 10.0L, Monocytes (%) (Auto) 10.6H, Eosinophils (%) (Auto ) 1.2, Basophils (%) (Auto) 2.5H, Sodium Level 147H, Potassium Level 3.3L, Chloride Level 97L, Carbon Dioxide Level 28, Anion Gap 22H, Blood Urea Nitrogen 55H, Creatinine 6.4H, Estimat Glomerular Filtration Rate 8.7, Glucose Level 154H , Calcium Level 9.7, Total Bilirubin 0.3, Aspartate Amino Transf (AST/SGOT) 37, Alanine Aminotransferase (ALT/SGPT) 8, Alkaline Phosphatase 117, Total Protein 6.8, Albumin 2.5L, Globulin 4.3, Albumin/Globulin Ratio 0.5L, Amylase Level 730* H, Lipase 1719H Height (Feet): 5 Height (Inches): 9.00 Weight (Pounds): 165 General Appearance: no apparent distress EENT: normal ENT inspection Neck: supple Cardiovascular: normal rate Respiratory/Chest: decreased breath sounds Abdomen: non tender, soft Extremities: non-tender AYLIN MARSH 24, 2017 08:48
[2016-09-27] MEDS: Phenytoin Susp 100mg/4ml GT SCH ×2 (09:01→21:49)
[2016-09-27] MEDS: Bethanechol 10mg Tab ORAL SCH ×3 (09:01→17:17)
[2016-09-27] MEDS: Valproic Acid 250mg/5ml Liquid GT SCH ×2 (09:01→21:50)
[2016-09-27] MEDS: Minoxidil 10mg tab GT SCH ×2 (09:02→17:06)
[2016-09-27] MEDS: Heparin 5000 units/ml inj SUBQ SCH ×2 (09:04→21:52)
[2016-09-27] MEDS ORDERED: KCl 10% 40mEq/30ml liquid NG ONE (10:00)
--- NOTE | 2016-09-27 10:29 | Pulmonolgy Critical Care Note ---
Critical Care - Asmt/Plan Assessment/Plan: 1. Status post cardiac arrest. 2. Renal failure with hyperkalemia. 3. Respiratory failure. 4. Anoxic encephalopathy. 5. Status epilepticus 6. Coronary artery disease. 7. History of cardiomyopathy. 8. Diabetes. 9. Hypertension. 10 Pancreatitis weaning as tolerated but thus far not tolerating no change in baseline vent settings CT pending of AP NPO at this time, TPN to be decided per GI eval note nebs and suction monitor BP, pressors if MAP less than 65 mmhg wound care DVT prophylaxis HD per renal continue abx prognosis guarded greater than 35 minutes of critical care time spent with the patient, reviewing the records, dw nursing and plan for the day Critical Care - Objective Last 24 Hour Vital Signs Date Time Temp Pulse Resp B/P Pulse Ox O2 Delivery O2 Flow Rate FiO2 09/27/16 09:02 110/57 09/27/16 09:02 86 110/57 09/27/16 09:00 90 20 30 09/27/16 08:00 86 09/27/16 08:00 100.3 86 25 110/57 97 Mechanical Ventilator 30 09/27/16 08:00 30 09/27/16 07:00 88 16 30 09/27/16 05:10 91 18 30 09/27/16 04:00 89 09/27/16 04:00 30 09/27/16 04:00 98.6 90 20 140/54 97 09/27/16 03:17 82 25 30 09/27/16 00:57 87 16 30 09/27/16 00:00 90 09/27/16 00:00 30 09/27/16 00:00 98.2 85 24 111/51 100 09/26/16 23:30 85 26 30 09/26/16 21:22 82 22 30 09/26/16 20:00 30 09/26/16 20:00 97.9 82 29 109/ 99 09/26/16 20:00 90 09/26/16 19:40 84 27 30 09/26/16 18:04 123/45 09/26/16 17:29 81 15 30 09/26/16 16:00 80 09/26/16 16:00 30 09/26/16 16:00 99.1 80 18 123/45 100 Mechanical Ventilator 30 09/26/16 15:27 86 13 30 09/26/16 13:10 82 14 30 09/26/16 12:54 98.1 09/26/16 12:00 83 09/26/16 12:00 30 09/26/16 12:00 100.0 85 18 116/43 100 Mechanical Ventilator 30 09/26/16 10:45 82 15 30 Status: obtunded Condition: critical Lungs: clear Heart: HR/BP stable Abdomen: soft, non-tender Extremities: edema Decubiti: location Accucheck: 151 Blood Sugars: BS controlled Critical Care - Subjective ROS Limited/Unobtainable: Yes Condition: critical FI02: 30 Vent Support Breath Rate: 12 Vent Support Mode: AC Vent Tidal Volume: 500 Sputum Amount: Small PEEP: 0.0 PIP: 22 Tube Feeding Amount: 30 I&O: Intake and Output 09/26/16 09/27/16 19:00 07:00 Intake Total 430 ml 600 ml Balance 430 ml 600 ml IV Total 350 ml 600 ml Other 80 ml # Bowel Movements 5 5 Subjective: no events noted over night obtunded on the vent breathing above the vent and not weaning bp stable no visible seizure activity tolerating tf no pressors sp trach and peg ET-Tube: 8.0 ET Position: 24 Labs: Current Medications Medications (Trade) Dose Ordered Sig/Mark Route PRN Reason Start Time Stop Time Status Last Admin Dose Admin Acetaminophen (Tylenol) 650 mg Q4H PRN ORAL Mild Pain (Pain Scale 1-3) 09/26/16 11:00 10/26/16 10:59 09/27/16 09:03 Amlodipine Besylate (Norvasc) 10 mg DAILY GT 09/27/16 09:00 10/27/16 08:59 09/27/16 09:02 Bethanechol Chloride (Urecholine) 10 mg THREE TIMES A DAY ORAL 09/26/16 13:00 10/26/16 12:59 09/27/16 09:01 Chlorhexidine Gluconate (Lakshmi-Hex 2%) 1 applic Q24H TOPIC 09/26/16 21:00 10/26/16 20:59 09/26/16 21:10 Dextrose (Dextrose 50%) STAT PRN IV Hypoglycemia 09/26/16 23:00 10/26/16 22:59 Dextrose/Sodium Chloride 1,000 ml @ 50 mls/hr Q20H IV 09/26/16 12:00 10/26/16 11:59 09/27/16 05:29 Epoetin Kiko (Procrit (for ESRD on dialysis)) 1,000 units ONCE ONCE SUBQ 09/27/16 09:45 09/27/16 09:46 UNV Heparin Sodium (Porcine) (Heparin 5000 units/ml) 5,000 units EVERY 12 HOURS SUBQ 09/26/16 21:00 10/26/16 20:59 09/27/16 09:04 Heparin Sodium (Porcine) (Heparin 5000 units/ml) 5,000 units POSTHD INJ 09/27/16 06:00 09/27/16 23:59 Heparin Sodium (Porcine) (Heparin Sod 1000 units/ml 10ml) 500 unit ONCE IV 09/27/16 06:00 09/27/16 23:59 Insulin Aspart (NovoLOG) EVERY 6 HOURS SUBQ 09/26/16 12:00 10/26/16 11:59 09/27/16 05:32 Lansoprazole (Prevacid) 30 mg DAILY GT 09/27/16 09:00 10/27/16 08:59 09/27/16 09:01 Levofloxacin (Levaquin) 500 mg Q48H NG 09/26/16 18:00 10/03/16 17:59 09/26/16 18:04 Metoclopramide HCl (Reglan) 5 mg Q6HR NG 09/26/16 12:00 10/26/16 11:59 09/27/16 05:39 Minoxidil (Loniten) 15 mg BID GT 09/26/16 18:00 10/26/16 17:59 09/27/16 09:02 Phenytoin (Dilantin) 300 mg Q12HR GT 09/26/16 21:00 10/26/16 20:59 09/27/16 09:01 Phenytoin/Sodium Chloride (Dilantin/Sodium Chloride) 120 ml @ 120 mls/hr POSTHD IVPB 09/26/16 21:00 10/26/16 20:59 Polyethylene Glycol (Miralax) 17 gm DAILYPRN PRN ORAL Constipation 09/26/16 23:00 10/26/16 22:59 Sodium Chloride (Sodium Chloride 1000ml bag) 1,000 ml @ 500 mls/hr Q2H PRN IVLG sbp<90 during hd 09/27/16 06:00 09/27/16 23:59 Valproic Acid (Depakene) 1,000 mg POSTHD GT 09/26/16 11:00 10/26/16 10:59 Valproic Acid 1500 mg 1,500 mg Q12HR GT 09/26/16 21:00 10/26/16 20:59 09/27/16 09:01 Laboratory Tests Test 09/27/16 05:11 09/27/16 05:14 Phosphorus Level 4.8 mg/dL (2.5-4.8) White Blood Count 14.9 K/UL (4.8-10.8) H Red Blood Count 2.59 M/UL (4.70-6.10) L Hemoglobin 8.0 G/DL (14.2-18.0) L Hematocrit 26.2 % (42.0-52.0) L Mean Corpuscular Volume 101 FL (80-99) H Mean Corpuscular Hemoglobin 30.9 PG (27.0-31.0) Mean Corpuscular Hemoglobin Concent 30.5 G/DL (32.0-36.0) L Red Cell Distribution Width 15.3 % (11.6-14.8) H Platelet Count 251 K/UL (150-450) Mean Platelet Volume 6.1 FL (6.5-10.1) L Neutrophils (%) (Auto) 75.8 % (45.0-75.0) H Lymphocytes (%) (Auto) 10.0 % (20.0-45.0) L Monocytes (%) (Auto) 10.6 % (1.0-10.0) H Eosinophils (%) (Auto) 1.2 % (0.0-3.0) Basophils (%) (Auto) 2.5 % (0.0-2.0) H Sodium Level 147 mEQ/L (135-145) H Potassium Level 3.3 mEQ/L (3.4-4.9) L Chloride Level 97 mEQ/L (98-107) L Carbon Dioxide Level 28 mEQ/L (20-30) Anion Gap 22 (5-15) H Blood Urea Nitrogen 55 mg/dL (7-23) H Creatinine 6.4 mg/dL (0.7-1.2) H Estimat Glomerular Filtration Rate 8.7 mL/min (>60) Glucose Level 154 mg/dL (74-106) H Calcium Level 9.7 mg/dL (8.6-10.2) Total Bilirubin 0.3 mg/dL (0.0-1.2) Aspartate Amino Transf (AST/SGOT) 37 U/L (5-40) Alanine Aminotransferase (ALT/SGPT) 8 U/L (3-41) Alkaline Phosphatase 117 U/L (40-129) Total Protein 6.8 g/dL (6.6-8.7) Albumin 2.5 g/dL (3.5-5.2) L Globulin 4.3 g/dL Albumin/Globulin Ratio 0.5 (1.0-2.7) L Amylase Level 730 U/L (10-110) *H Lipase 1719 U/L (< 60) H KOLTON RENTERIA DO Sep 27, 2016 10:29
[2016-09-27 12:00] VITALS: BP 120/43
[2016-09-27] MEDS ORDERED: Epogen (for ESRD on dialysis) SUBQ ONE (12:00)
--- NOTE | 2016-09-27 12:43 | Internal Med Progress Note ---
Subjective Date of Service: Sep 27, 2016 Physician Name Filiberto Clancy Attending Physician Harrison Delatorre Current Medications Medications (Trade) Dose Ordered Sig/Mark Route PRN Reason Start Time Stop Time Status Last Admin Dose Admin Acetaminophen (Tylenol) 650 mg Q4H PRN ORAL Mild Pain (Pain Scale 1-3) 09/26/16 11:00 10/26/16 10:59 09/27/16 09:03 Amlodipine Besylate (Norvasc) 10 mg DAILY GT 09/27/16 09:00 10/27/16 08:59 09/27/16 09:02 Bethanechol Chloride (Urecholine) 10 mg THREE TIMES A DAY ORAL 09/26/16 13:00 10/26/16 12:59 09/27/16 12:08 Chlorhexidine Gluconate (Lakshmi-Hex 2%) 1 applic Q24H TOPIC 09/26/16 21:00 10/26/16 20:59 09/26/16 21:10 Dextrose (Dextrose 50%) STAT PRN IV Hypoglycemia 09/26/16 23:00 10/26/16 22:59 Dextrose/Sodium Chloride 1,000 ml @ 50 mls/hr Q20H IV 09/26/16 12:00 10/26/16 11:59 09/27/16 05:29 Heparin Sodium (Porcine) (Heparin 5000 units/ml) 5,000 units EVERY 12 HOURS SUBQ 09/26/16 21:00 10/26/16 20:59 09/27/16 09:04 Heparin Sodium (Porcine) (Heparin 5000 units/ml) 5,000 units POSTHD INJ 09/27/16 06:00 09/27/16 23:59 Heparin Sodium (Porcine) (Heparin Sod 1000 units/ml 10ml) 500 unit ONCE IV 09/27/16 06:00 09/27/16 23:59 Insulin Aspart (NovoLOG) EVERY 6 HOURS SUBQ 09/26/16 12:00 10/26/16 11:59 09/27/16 12:10 Lansoprazole (Prevacid) 30 mg DAILY GT 09/27/16 09:00 10/27/16 08:59 09/27/16 09:01 Levofloxacin (Levaquin) 500 mg Q48H NG 09/26/16 18:00 10/03/16 17:59 6/23/17 18:04 Metoclopramide HCl (Reglan) 5 mg Q6HR NG 09/26/16 12:00 10/26/16 11:59 09/27/16 12:08 Minoxidil (Loniten) 15 mg BID GT 09/26/16 18:00 10/26/16 17:59 09/27/16 09:02 Phenytoin (Dilantin) 300 mg Q12HR GT 09/26/16 21:00 10/26/16 20:59 09/27/16 09:01 Phenytoin/Sodium Chloride (Dilantin/Sodium Chloride) 120 ml @ 120 mls/hr POSTHD IVPB 09/26/16 21:00 10/26/16 20:59 Polyethylene Glycol (Miralax) 17 gm DAILYPRN PRN ORAL Constipation 09/26/16 23:00 10/26/16 22:59 Sodium Chloride (Sodium Chloride 1000ml bag) 1,000 ml @ 500 mls/hr Q2H PRN IVLG sbp<90 during hd 09/27/16 06:00 09/27/16 23:59 Valproic Acid (Depakene) 1,000 mg POSTHD GT 09/26/16 11:00 10/26/16 10:59 Valproic Acid 1500 mg 1,500 mg Q12HR GT 09/26/16 21:00 10/26/16 20:59 09/27/16 09:01 Allergies: Coded Allergies: NIACIN (Verified Allergy, Unknown, ITCHING, 01/30/12) ROS Limited/Unobtainable: Yes Subjective 71 YO M admitted with volume overload and respiratory failure. S/P cardiopulmonary arrest. WILD. Intubated. More restless today. Low grade fever. Cover for Int Med-Dr [place]. S/P PEG 09/23/16. S/P Tracheostomy 09/24/16 Objective Last Vital Signs Date Time Temp Pulse Resp B/P Pulse Ox O2 Delivery O2 Flow Rate FiO2 09/27/16 11:00 89 14 30 09/27/16 10:00 100.3 09/27/16 09:02 110/57 09/27/16 08:00 97 Mechanical Ventilator 09/25/16 16:32 4.0 Laboratory Tests Test 09/27/16 05:11 09/27/16 05:14 Phosphorus Level 4.8 mg/dL (2.5-4.8) White Blood Count 14.9 K/UL (4.8-10.8) H Red Blood Count 2.59 M/UL (4.70-6.10) L Hemoglobin 8.0 G/DL (14.2-18.0) L Hematocrit 26.2 % (42.0-52.0) L Mean Corpuscular Volume 101 FL (80-99) H Mean Corpuscular Hemoglobin 30.9 PG (27.0-31.0) Mean Corpuscular Hemoglobin Concent 30.5 G/DL (32.0-36.0) L Red Cell Distribution Width 15.3 % (11.6-14.8) H Platelet Count 251 K/UL (150-450) Mean Platelet Volume 6.1 FL (6.5-10.1) L Neutrophils (%) (Auto) 75.8 % (45.0-75.0) H Lymphocytes (%) (Auto) 10.0 % (20.0-45.0) L Monocytes (%) (Auto) 10.6 % (1.0-10.0) H Eosinophils (%) (Auto) 1.2 % (0.0-3.0) Basophils (%) (Auto) 2.5 % (0.0-2.0) H Sodium Level 147 mEQ/L (135-145) H Potassium Level 3.3 mEQ/L (3.4-4.9) L Chloride Level 97 mEQ/L (98-107) L Carbon Dioxide Level 28 mEQ/L (20-30) Anion Gap 22 (5-15) H Blood Urea Nitrogen 55 mg/dL (7-23) H Creatinine 6.4 mg/dL (0.7-1.2) H Estimat Glomerular Filtration Rate 8.7 mL/min (>60) Glucose Level 154 mg/dL (74-106) H Calcium Level 9.7 mg/dL (8.6-10.2) Total Bilirubin 0.3 mg/dL (0.0-1.2) Aspartate Amino Transf (AST/SGOT) 37 U/L (5-40) Alanine Aminotransferase (ALT/SGPT) 8 U/L (3-41) Alkaline Phosphatase 117 U/L (40-129) Total Protein 6.8 g/dL (6.6-8.7) Albumin 2.5 g/dL (3.5-5.2) L Globulin 4.3 g/dL Albumin/Globulin Ratio 0.5 (1.0-2.7) L Amylase Level 730 U/L (10-110) *H Lipase 1719 U/L (< 60) H Intake and Output 09/26/16 09/27/16 19:00 07:00 Intake Total 430 ml 600 ml Balance 430 ml 600 ml IV Total 350 ml 600 ml Other 80 ml # Bowel Movements 5 5 Objective General Appearance: WD/WN, lethargic EENT: PERRL/EOMI, normal ENT inspection, TMs normal Neck: non-tender, normal alignment, supple Cardiovascular: normal peripheral pulses, normal rate, regular rhythm, no gallop/murmur, no JVD Respiratory/Chest: Mech vent; chest wall non-tender, crackles/rales, rhonchi - bilaterally, expiratory wheezing Abdomen: normal bowel sounds, non tender, soft, no organomegaly Skin: normal pigmentation, warm/dry Assessment/Plan Problem List: (1) HTN (hypertension) Assessment & Plan: Cont amlodipine. (2) Hyperkalemia (3) Respiratory failure with hypoxia Assessment & Plan: Intubated and sedated. S/P Tracheostomy 09/24/16. (4) ESRD (end stage renal disease) Assessment & Plan: See nephrology note. Last Hemodialysis 09/23/16 per nephrology (5) CHF (congestive heart failure) (6) Diabetes mellitus Assessment & Plan: Cont novolog sliding scale. 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 (9) Anoxic encephalopathy syndrome Assessment & Plan: See neruo note. (10) Enterobacter sepsis (11) Pneumonia Assessment & Plan: Enterobacter. Cont Levaquin per ID (12) Anemia (13) Dysphagia Assessment & Plan: S/P PEG 09/23/16. (14) Cholecystitis, acute Assessment & Plan: See Surgery note. Not surgical candidate at this time. (15) Pancreatitis, acute Assessment & Plan: See GI note. Hold tube feeds. Pancrelipase. (16) Fever Assessment & Plan: See ID note. Assessment/Plan Discharge to [facility] when accepted-see case management note. FILIBERTO CLANCY Sep 27, 2016 12:43
[2016-09-27] MEDS ORDERED: D5 1/2NS 1000ml IV ONE (14:44)
[2016-09-27 16:00] VITALS: BP 129/54
--- NOTE | 2016-09-27 18:34 | Nephrology Progress Note ---
Assessment/Plan Problem List: (1) ESRD (end stage renal disease) (2) Anoxic encephalopathy syndrome (3) Respiratory failure with hypoxia (4) CHF (congestive heart failure) (5) HTN (hypertension) (6) Acute pancreatitis Assessment: not better Plan HD as tolerated will start TPN Vent support follow labs NPO Subjective Subjective In NAD seen during HD Objective Objective Last 24 Hour Vital Signs Date Time Temp Pulse Resp B/P Pulse Ox O2 Delivery O2 Flow Rate FiO2 09/27/16 17:06 129/54 09/27/16 17:00 90 22 30 09/27/16 16:00 30 09/27/16 16:00 85 09/27/16 16:00 Mechanical Ventilator 4.0 30 09/27/16 16:00 99.4 89 17 129/54 99 Mechanical Ventilator 30 09/27/16 15:00 88 20 30 09/27/16 13:00 91 15 30 09/27/16 12:00 30 09/27/16 12:00 98.9 84 13 120/43 97 Mechanical Ventilator 30 09/27/16 12:00 85 09/27/16 11:00 89 14 30 09/27/16 10:00 100.3 09/27/16 09:02 110/57 09/27/16 09:02 86 110/57 09/27/16 09:00 90 20 30 09/27/16 08:00 86 09/27/16 08:00 100.3 86 25 110/57 97 Mechanical Ventilator 30 09/27/16 08:00 30 09/27/16 07:00 88 16 30 09/27/16 05:10 91 18 30 09/27/16 04:00 89 09/27/16 04:00 30 09/27/16 04:00 98.6 90 20 140/54 97 09/27/16 03:17 82 25 30 09/27/16 00:57 87 16 30 09/27/16 00:00 90 09/27/16 00:00 30 09/27/16 00:00 98.2 85 24 111/51 100 09/26/16 23:30 85 26 30 09/26/16 21:22 82 22 30 09/26/16 20:00 30 09/26/16 20:00 97.9 82 29 109/ 99 09/26/16 20:00 90 09/26/16 19:40 84 27 30 Intake and Output 09/26/16 09/27/16 19:00 07:00 Intake Total 430 ml 600 ml Balance 430 ml 600 ml IV Total 350 ml 600 ml Other 80 ml # Bowel Movements 5 5 Laboratory Tests 09/27/16 05:11: Phosphorus Level 4.8 09/27/16 05:14: White Blood Count 14.9H, Red Blood Count 2.59L, Hemoglobin 8.0L, Hematocrit 26.2L, Mean Corpuscular Volume 101H, Mean Corpuscular Hemoglobin 30.9, Mean Corpuscular Hemoglobin Concent 30.5L, Red Cell Distribution Width 15.3H, Platelet Count 251, Mean Platelet Volume 6.1L, Neutrophils (%) (Auto) 75.8H, Lymphocytes (%) (Auto) 10.0L, Monocytes (%) (Auto) 10.6H, Eosinophils (%) (Auto ) 1.2, Basophils (%) (Auto) 2.5H, Sodium Level 147H, Potassium Level 3.3L, Chloride Level 97L, Carbon Dioxide Level 28, Anion Gap 22H, Blood Urea Nitrogen 55H, Creatinine 6.4H, Estimat Glomerular Filtration Rate 8.7, Glucose Level 154H , Calcium Level 9.7, Total Bilirubin 0.3, Aspartate Amino Transf (AST/SGOT) 37, Alanine Aminotransferase (ALT/SGPT) 8, Alkaline Phosphatase 117, Total Protein 6.8, Albumin 2.5L, Globulin 4.3, Albumin/Globulin Ratio 0.5L, Amylase Level 730* H, Lipase 1719H Height (Feet): 5 Height (Inches): 9.00 Weight (Pounds): 165 Cardiovascular: normal rate Respiratory/Chest: lungs clear Extremities: trace edema CANDICE BREAUX Sep 27, 2016 18:34
--- NOTE | 2016-09-27 19:30 | Cardiology Progress Note ---
Assessment/Plan Assessment/Plan post asystole presently stable from cardiac standpoint Subjective Subjective patient is unresponsive he moves all the extremities doew not react to his family which is at the bedside Objective Last 24 Hour Vital Signs Date Time Temp Pulse Resp B/P Pulse Ox O2 Delivery O2 Flow Rate FiO2 09/27/16 19:19 Mechanical Ventilator 4.0 30 09/27/16 18:34 89 20 30 09/27/16 17:06 129/54 09/27/16 17:00 90 22 30 09/27/16 16:00 30 09/27/16 16:00 85 09/27/16 16:00 Mechanical Ventilator 4.0 30 09/27/16 16:00 99.4 89 17 129/54 99 Mechanical Ventilator 30 09/27/16 15:00 88 20 30 09/27/16 13:00 91 15 30 09/27/16 12:00 30 09/27/16 12:00 98.9 84 13 120/43 97 Mechanical Ventilator 30 09/27/16 12:00 85 09/27/16 11:00 89 14 30 09/27/16 10:00 100.3 09/27/16 09:02 110/57 09/27/16 09:02 86 110/57 09/27/16 09:00 90 20 30 09/27/16 08:00 86 09/27/16 08:00 100.3 86 25 110/57 97 Mechanical Ventilator 30 09/27/16 08:00 30 09/27/16 07:00 88 16 30 09/27/16 05:10 91 18 30 09/27/16 04:00 89 09/27/16 04:00 30 09/27/16 04:00 98.6 90 20 140/54 97 09/27/16 03:17 82 25 30 09/27/16 00:57 87 16 30 09/27/16 00:00 90 09/27/16 00:00 30 09/27/16 00:00 98.2 85 24 111/51 100 09/26/16 23:30 85 26 30 09/26/16 21:22 82 22 30 09/26/16 20:00 30 09/26/16 20:00 97.9 82 29 109/ 99 09/26/16 20:00 90 09/26/16 19:40 84 27 30 General Appearance: on vent, other - unresponsive EENT: other - eyes are closed Neck: other - tracheostomy Rhythm: NSR Cardiovascular: normal rate Respiratory/Chest: crackles/rales Abdomen: distended Intake and Output 09/26/16 09/27/16 19:00 07:00 Intake Total 430 ml 600 ml Balance 430 ml 600 ml IV Total 350 ml 600 ml Other 80 ml # Bowel Movements 5 5 Laboratory Tests Test 09/27/16 05:11 09/27/16 05:14 Phosphorus Level 4.8 mg/dL (2.5-4.8) White Blood Count 14.9 K/UL (4.8-10.8) H Red Blood Count 2.59 M/UL (4.70-6.10) L Hemoglobin 8.0 G/DL (14.2-18.0) L Hematocrit 26.2 % (42.0-52.0) L Mean Corpuscular Volume 101 FL (80-99) H Mean Corpuscular Hemoglobin 30.9 PG (27.0-31.0) Mean Corpuscular Hemoglobin Concent 30.5 G/DL (32.0-36.0) L Red Cell Distribution Width 15.3 % (11.6-14.8) H Platelet Count 251 K/UL (150-450) Mean Platelet Volume 6.1 FL (6.5-10.1) L Neutrophils (%) (Auto) 75.8 % (45.0-75.0) H Lymphocytes (%) (Auto) 10.0 % (20.0-45.0) L Monocytes (%) (Auto) 10.6 % (1.0-10.0) H Eosinophils (%) (Auto) 1.2 % (0.0-3.0) Basophils (%) (Auto) 2.5 % (0.0-2.0) H Sodium Level 147 mEQ/L (135-145) H Potassium Level 3.3 mEQ/L (3.4-4.9) L Chloride Level 97 mEQ/L (98-107) L Carbon Dioxide Level 28 mEQ/L (20-30) Anion Gap 22 (5-15) H Blood Urea Nitrogen 55 mg/dL (7-23) H Creatinine 6.4 mg/dL (0.7-1.2) H Estimat Glomerular Filtration Rate 8.7 mL/min (>60) Glucose Level 154 mg/dL (74-106) H Calcium Level 9.7 mg/dL (8.6-10.2) Total Bilirubin 0.3 mg/dL (0.0-1.2) Aspartate Amino Transf (AST/SGOT) 37 U/L (5-40) Alanine Aminotransferase (ALT/SGPT) 8 U/L (3-41) Alkaline Phosphatase 117 U/L (40-129) Total Protein 6.8 g/dL (6.6-8.7) Albumin 2.5 g/dL (3.5-5.2) L Globulin 4.3 g/dL Albumin/Globulin Ratio 0.5 (1.0-2.7) L Amylase Level 730 U/L (10-110) *H Lipase 1719 U/L (< 60) H JUANA YANG Sep 27, 2016 19:30
[2016-09-27 20:00] VITALS: BP 150/66
[2016-09-27] MEDS ORDERED: Fat Emulsion Iv 20% 250 ML IV SCH (21:00)
[2016-09-27] MEDS: Dyna-Hex 2% Top Sol 8oz TOPIC SCH (21:54)
[2016-09-28] VITALS: BP 151/59
[2016-09-28] MEDS: Phenytoin 500 MG in NS 110 ML IVPB SCH (00:21)
[2016-09-28 04:00] VITALS: BP 143/52
[2016-09-28] MEDS: D5 1/2NS 1,000 ML IV SCH (04:31)
[2016-09-28] MEDS: Metoclopramide 10mg/10ml Liq NG SCH ×3 (05:30→17:09)
[2016-09-28] MEDS: NovoLOG Insulin Flexpen SUBQ SCH ×3 (05:31→17:10)
[2016-09-28 07:41] LABS: BASOPHILS % (AUTO) 1.8 % (0.0-2.0); EOSINOPHILS % (AUTO) 1.6 % (0.0-3.0); LYMPHOCYTES % (AUTO) 9.7 % (20.0-45.0); MEAN CORPUSCULAR HEMOGLOBIN 29.9 PG (27.0-31.0); MEAN CORPUSCULAR HGB CONC 29.6 G/DL (32.0-36.0); MEAN CORPUSCULAR VOLUME 101 FL (80-99); MEAN PLATELET VOLUME 6.1 FL (6.5-10.1); MONOCYTES % (AUTO) 10.9 % (1.0-10.0); NEUTROPHILS % (AUTO) 75.9 % (45.0-75.0); PLATELET COUNT 269 K/UL (150-450); RED BLOOD COUNT 2.91 M/UL (4.70-6.10); RED CELL DISTRIBUTION WIDTH 16.3 % (11.6-14.8); WHITE BLOOD COUNT 14.7 K/UL (4.8-10.8)
--- NOTE | 2016-09-28 07:49 | Infectious Diseases Prog Note ---
Assessment/Plan Assessment/Plan A; Acute pancreatitis pneumonia with Enterobacter COPD s/p cardiac arrest Anoxic encephalopathy ESRD on HD Respiratory failure s/p tracheostomy s/p GT placement P; discontinue Levaquin start on Zosyn will f/u CT scan of abdomen Subjective ROS Limited/Unobtainable: Yes Constitutional: Reports: fever, other - T oxp=799.3 Allergies: Coded Allergies: NIACIN (Verified Allergy, Unknown, ITCHING, 01/30/12) Objective Vital Signs Last 24 Hour Vital Signs Date Time Temp Pulse Resp B/P Pulse Ox O2 Delivery O2 Flow Rate FiO2 09/28/16 07:06 85 24 30 09/28/16 05:05 83 15 30 09/28/16 04:00 30 09/28/16 04:00 88 09/28/16 04:00 97.0 85 20 143/52 100 Mechanical Ventilator 4.0 30 09/28/16 02:43 85 25 30 09/28/16 00:36 86 25 30 09/28/16 00:00 4.0 30 09/28/16 00:00 99.4 96 20 151/59 100 Mechanical Ventilator 4.0 30 09/28/16 00:00 94 09/27/16 22:51 101 25 30 09/27/16 20:55 90 23 30 09/27/16 20:00 99.4 92 20 150/66 100 Mechanical Ventilator 4.0 30 09/27/16 20:00 94 09/27/16 20:00 4.0 30 09/27/16 19:19 Mechanical Ventilator 4.0 30 09/27/16 18:34 89 20 30 09/27/16 17:06 129/54 09/27/16 17:00 90 22 30 09/27/16 16:00 30 09/27/16 16:00 85 09/27/16 16:00 Mechanical Ventilator 4.0 30 09/27/16 16:00 99.4 89 17 129/54 99 Mechanical Ventilator 30 09/27/16 15:00 88 20 30 09/27/16 13:00 91 15 30 09/27/16 12:00 30 09/27/16 12:00 98.9 84 13 120/43 97 Mechanical Ventilator 30 09/27/16 12:00 85 09/27/16 11:00 89 14 30 09/27/16 10:00 100.3 09/27/16 09:02 110/57 09/27/16 09:02 86 110/57 09/27/16 09:00 90 20 30 09/27/16 08:00 86 09/27/16 08:00 100.3 86 25 110/57 97 Mechanical Ventilator 30 09/27/16 08:00 30 Height (Feet): 5 Height (Inches): 9.00 Weight (Pounds): 166 General Appearance: no acute distress HEENT: status post trach Respiratory/Chest: lungs clear, other - on ventilator Cardiovascular: normal rate Abdomen: soft, non tender, other - GT Extremities: no edema Neurologic/Psychiatric: disoriented Laboratory Tests Test 09/28/16 06:40 White Blood Count Pending Red Blood Count Pending Hemoglobin Pending Hematocrit Pending Mean Corpuscular Volume Pending Mean Corpuscular Hemoglobin Pending Mean Corpuscular Hemoglobin Concent Pending Red Cell Distribution Width Pending Platelet Count Pending Mean Platelet Volume Pending Neutrophils (%) (Auto) Pending Lymphocytes (%) (Auto) Pending Monocytes (%) (Auto) Pending Eosinophils (%) (Auto) Pending Basophils (%) (Auto) Pending Sodium Level Pending Potassium Level Pending Chloride Level Pending Carbon Dioxide Level Pending Blood Urea Nitrogen Pending Creatinine Pending Estimat Glomerular Filtration Rate Pending Glucose Level Pending Calcium Level Pending Triglycerides Level Pending Cholesterol Level Pending LDL Cholesterol Pending HDL Cholesterol Pending Cholesterol/HDL Ratio Pending Amylase Level Pending Lipase Pending Current Medications Medications (Trade) Dose Ordered Sig/Mark Route PRN Reason Start Time Stop Time Status Last Admin Dose Admin Acetaminophen (Tylenol) 650 mg Q4H PRN ORAL Mild Pain (Pain Scale 1-3) 09/26/16 11:00 10/26/16 10:59 09/27/16 09:03 Amino Acids/ Electrolytes/ Dextrose 2,000 ml @ 75 mls/hr Q24H IV 09/27/16 21:00 10/27/16 20:59 UNV Amlodipine Besylate (Norvasc) 10 mg DAILY GT 09/27/16 09:00 10/27/16 08:59 09/27/16 09:02 Bethanechol Chloride (Urecholine) 10 mg THREE TIMES A DAY ORAL 09/26/16 13:00 10/26/16 12:59 09/27/16 17:17 Chlorhexidine Gluconate (Lakshmi-Hex 2%) 1 applic Q24H TOPIC 09/26/16 21:00 10/26/16 20:59 09/27/16 21:54 Dextrose (D10w) 1,000 ml @ 0 mls/hr Q24H PRN IV PN interrupted or unavailable 09/27/16 18:15 10/27/16 18:14 UNV Dextrose (Dextrose 50%) STAT PRN IV Hypoglycemia 09/26/16 23:00 10/26/16 22:59 Dextrose (Dextrose 50%) STAT PRN IV Hypoglycemia 09/27/16 18:15 10/27/16 18:14 UNV Dextrose/Sodium Chloride 1,000 ml @ 50 mls/hr Q20H IV 09/26/16 12:00 10/26/16 11:59 09/28/16 04:31 Fat Emulsion Intravenous 250 ml @ 10.4 mls/hr Q24H IV 09/27/16 21:00 10/27/16 20:59 UNV Heparin Sodium (Porcine) (Heparin 5000 units/ml) 5,000 units EVERY 12 HOURS SUBQ 09/26/16 21:00 10/26/16 20:59 09/27/16 21:52 Insulin Aspart (NovoLOG) EVERY 6 HOURS SUBQ 09/26/16 12:00 10/26/16 11:59 09/28/16 05:31 Lansoprazole (Prevacid) 30 mg DAILY GT 09/27/16 09:00 10/27/16 08:59 09/27/16 09:01 Levofloxacin (Levaquin) 500 mg Q48H NG 09/26/16 18:00 10/03/16 17:59 09/26/16 18:04 Metoclopramide HCl (Reglan) 5 mg Q6HR NG 09/26/16 12:00 10/26/16 11:59 09/28/16 05:30 Minoxidil (Loniten) 15 mg BID GT 09/26/16 18:00 10/26/16 17:59 09/27/16 09:02 Phenytoin (Dilantin) 300 mg Q12HR GT 09/26/16 21:00 10/26/16 20:59 09/27/16 21:49 Phenytoin/Sodium Chloride (Dilantin/Sodium Chloride) 120 ml @ 120 mls/hr POSTHD IVPB 09/26/16 21:00 10/26/16 20:59 09/28/16 00:21 Polyethylene Glycol (Miralax) 17 gm DAILYPRN PRN ORAL Constipation 09/26/16 23:00 10/26/16 22:59 Valproic Acid (Depakene) 1,000 mg POSTHD GT 09/26/16 11:00 10/26/16 10:59 Valproic Acid 1500 mg 1,500 mg Q12HR GT 09/26/16 21:00 10/26/16 20:59 09/27/16 21:50 ROZINA BREAUX Sep 28, 2016 07:48
[2016-09-28 08:00] VITALS: BP 111/45
[2016-09-28 08:03] LABS: CALCIUM 9.3 mg/dL (8.6-10.2); CREATININE 4.1 mg/dL (0.7-1.2); GLOMERULAR FILTRATION RATE 14.5 mL/min (>60); POTASSIUM 3.5 mEQ/L (3.4-4.9)
[2016-09-28 08:24] LABS: CHOLESTEROL/HDL RATIO 12.3 (3.3-4.4)
--- NOTE | 2016-09-28 08:42 | General Progress Note ---
Assessment/Plan Problem List: (1) HTN (hypertension) ICD Codes: I10 - Essential (primary) hypertension SNOMED: 71027243 (2) COPD (chronic obstructive pulmonary disease) ICD Codes: J44.9 - Chronic obstructive pulmonary disease, unspecified SNOMED: 48299121 (3) ESRD (end stage renal disease) ICD Codes: N18.6 - End stage renal disease SNOMED: 32447334 (4) Diabetes mellitus ICD Codes: E11.9 - Type 2 diabetes mellitus without complications SNOMED: 16198269 (5) Pancreatitis, acute ICD Codes: K85.90 - Acute pancreatitis without necrosis or infection, unspecified SNOMED: 993587070 Assessment/Plan fu labs abd CT pend ?needs TPN Subjective ROS Limited/Unobtainable: Yes Allergies: Coded Allergies: NIACIN (Verified Allergy, Unknown, ITCHING, 01/30/12) Subjective no event Objective Last 24 Hour Vital Signs Date Time Temp Pulse Resp B/P Pulse Ox O2 Delivery O2 Flow Rate FiO2 09/28/16 08:00 99.2 79 12 111/45 100 Mechanical Ventilator 30 09/28/16 08:00 30 09/28/16 07:53 77 09/28/16 07:06 85 24 30 09/28/16 05:05 83 15 30 09/28/16 04:00 30 09/28/16 04:00 88 09/28/16 04:00 97.0 85 20 143/52 100 Mechanical Ventilator 4.0 30 09/28/16 02:43 85 25 30 09/28/16 00:36 86 25 30 09/28/16 00:00 4.0 30 09/28/16 00:00 99.4 96 20 151/59 100 Mechanical Ventilator 4.0 30 09/28/16 00:00 94 09/27/16 22:51 101 25 30 09/27/16 20:55 90 23 30 09/27/16 20:00 99.4 92 20 150/66 100 Mechanical Ventilator 4.0 30 09/27/16 20:00 94 09/27/16 20:00 4.0 30 09/27/16 19:19 Mechanical Ventilator 4.0 30 09/27/16 18:34 89 20 30 09/27/16 17:06 129/54 09/27/16 17:00 90 22 30 09/27/16 16:00 30 09/27/16 16:00 85 09/27/16 16:00 Mechanical Ventilator 4.0 30 09/27/16 16:00 99.4 89 17 129/54 99 Mechanical Ventilator 30 09/27/16 15:00 88 20 30 09/27/16 13:00 91 15 30 09/27/16 12:00 30 09/27/16 12:00 98.9 84 13 120/43 97 Mechanical Ventilator 30 09/27/16 12:00 85 09/27/16 11:00 89 14 30 09/27/16 10:00 100.3 09/27/16 09:02 110/57 09/27/16 09:02 86 110/57 09/27/16 09:00 90 20 30 Intake and Output 09/27/16 09/28/16 19:00 07:00 Intake Total 690 ml 580 ml Output Total 0 ml Balance 690 ml 580 ml IV Total 600 ml 520 ml Other 90 ml 60 ml Hemodialysis UF 0 ml # Bowel Movements 4 2 Laboratory Tests 09/28/16 06:40: White Blood Count 14.7H, Red Blood Count 2.91L, Hemoglobin 8.7L, Hematocrit 29.4L, Mean Corpuscular Volume 101H, Mean Corpuscular Hemoglobin 29.9, Mean Corpuscular Hemoglobin Concent 29.6L, Red Cell Distribution Width 16.3H, Platelet Count 269, Mean Platelet Volume 6.1L, Neutrophils (%) (Auto) 75.9H, Lymphocytes (%) (Auto) 9.7L, Monocytes (%) (Auto) 10.9H, Eosinophils (%) (Auto) 1.6, Basophils (%) (Auto) 1.8, Sodium Level 142, Potassium Level 3.5, Chloride Level 96L, Carbon Dioxide Level 28, Anion Gap 18H, Blood Urea Nitrogen 28#H, Creatinine 4.1H, Estimat Glomerular Filtration Rate 14.5, Glucose Level 208H, Calcium Level 9.3, Triglycerides Level [Pending], Cholesterol Level [Pending], LDL Cholesterol [Pending], HDL Cholesterol [Pending], Cholesterol/HDL Ratio [ Pending], Amylase Level [Pending], Lipase [Pending] Height (Feet): 5 Height (Inches): 9.00 Weight (Pounds): 166 General Appearance: no apparent distress EENT: normal ENT inspection Neck: supple Cardiovascular: normal rate Respiratory/Chest: decreased breath sounds Abdomen: normal bowel sounds, non tender, soft Extremities: non-tender AYLIN MARSH Sep 28, 2016 08:42
[2016-09-28] MEDS: Phenytoin Susp 100mg/4ml GT SCH ×2 (08:45→21:20)
[2016-09-28] MEDS: Valproic Acid 250mg/5ml Liquid GT SCH ×3 (08:45→21:21)
[2016-09-28] MEDS: Heparin 5000 units/ml inj SUBQ SCH ×2 (08:46→21:47)
[2016-09-28] MEDS: Bethanechol 10mg Tab ORAL SCH ×3 (08:46→17:09)
[2016-09-28] MEDS: Minoxidil 10mg tab GT SCH ×2 (08:47→17:09)
--- NOTE | 2016-09-28 08:48 | Pulmonology Progress Note ---
Assessment/Plan Assessment/Plan 1. Status post cardiac arrest. 2. Renal failure with hyperkalemia. 3. Respiratory failure. 4. Anoxic encephalopathy. 5. Status epilepticus 6. Coronary artery disease. 7. History of cardiomyopathy. 8. Diabetes. 9. Hypertension. 10 Pancreatitis weaning as tolerated but thus far not tolerating, RR better today no change in baseline vent settings CT pending of AP NPO at this time, TPN to be decided per GI eval note nebs and suction monitor BP, pressors if MAP less than 65 mmhg wound care DVT prophylaxis HD per renal continue abx prognosis guarded Subjective ROS Limited/Unobtainable: Yes Allergies: Coded Allergies: NIACIN (Verified Allergy, Unknown, ITCHING, 01/30/12) Subjective no evetns remains on the vent unresponsive to me, nonpurposeful movements no reports of cp nv or bleeding on HD per renal bs better controlled Objective Last 24 Hour Vital Signs Date Time Temp Pulse Resp B/P Pulse Ox O2 Delivery O2 Flow Rate FiO2 09/28/16 08:00 99.2 79 12 111/45 100 Mechanical Ventilator 30 09/28/16 08:00 30 09/28/16 07:53 77 09/28/16 07:06 85 24 30 09/28/16 05:05 83 15 30 09/28/16 04:00 30 09/28/16 04:00 88 09/28/16 04:00 97.0 85 20 143/52 100 Mechanical Ventilator 4.0 30 09/28/16 02:43 85 25 30 09/28/16 00:36 86 25 30 09/28/16 00:00 4.0 30 09/28/16 00:00 99.4 96 20 151/59 100 Mechanical Ventilator 4.0 30 09/28/16 00:00 94 09/27/16 22:51 101 25 30 09/27/16 20:55 90 23 30 09/27/16 20:00 99.4 92 20 150/66 100 Mechanical Ventilator 4.0 30 09/27/16 20:00 94 09/27/16 20:00 4.0 30 09/27/16 19:19 Mechanical Ventilator 4.0 30 09/27/16 18:34 89 20 30 09/27/16 17:06 129/54 09/27/16 17:00 90 22 30 09/27/16 16:00 30 09/27/16 16:00 85 09/27/16 16:00 Mechanical Ventilator 4.0 30 09/27/16 16:00 99.4 89 17 129/54 99 Mechanical Ventilator 30 09/27/16 15:00 88 20 30 09/27/16 13:00 91 15 30 09/27/16 12:00 30 09/27/16 12:00 98.9 84 13 120/43 97 Mechanical Ventilator 30 09/27/16 12:00 85 09/27/16 11:00 89 14 30 09/27/16 10:00 100.3 09/27/16 09:02 110/57 09/27/16 09:02 86 110/57 09/27/16 09:00 90 20 30 Intake and Output 09/27/16 09/28/16 19:00 07:00 Intake Total 690 ml 580 ml Output Total 0 ml Balance 690 ml 580 ml IV Total 600 ml 520 ml Other 90 ml 60 ml Hemodialysis UF 0 ml # Bowel Movements 4 2 General Appearance: WD/WN HEENT: atraumatic, anicteric, other - trach Respiratory/Chest: lungs clear Cardiovascular: normal rate, regular rhythm Abdomen: soft, non tender, no organomegaly Skin: no lesions Neurologic/Psychiatric: disoriented, unresponsiveness Lymphatic: no neck adenopathy, no groin adenopathy Laboratory Tests 09/28/16 06:40: White Blood Count 14.7H, Red Blood Count 2.91L, Hemoglobin 8.7L, Hematocrit 29.4L, Mean Corpuscular Volume 101H, Mean Corpuscular Hemoglobin 29.9, Mean Corpuscular Hemoglobin Concent 29.6L, Red Cell Distribution Width 16.3H, Platelet Count 269, Mean Platelet Volume 6.1L, Neutrophils (%) (Auto) 75.9H, Lymphocytes (%) (Auto) 9.7L, Monocytes (%) (Auto) 10.9H, Eosinophils (%) (Auto) 1.6, Basophils (%) (Auto) 1.8, Sodium Level 142, Potassium Level 3.5, Chloride Level 96L, Carbon Dioxide Level 28, Anion Gap 18H, Blood Urea Nitrogen 28#H, Creatinine 4.1H, Estimat Glomerular Filtration Rate 14.5, Glucose Level 208H, Calcium Level 9.3, Triglycerides Level 470H, Cholesterol Level 184, LDL Cholesterol 75, HDL Cholesterol 15, Cholesterol/HDL Ratio 12.3H, Amylase Level 869*H, Lipase 1451H Current Medications Medications (Trade) Dose Ordered Sig/Mark Route PRN Reason Start Time Stop Time Status Last Admin Dose Admin Acetaminophen (Tylenol) 650 mg Q4H PRN ORAL Mild Pain (Pain Scale 1-3) 09/26/16 11:00 10/26/16 10:59 09/27/16 09:03 Amino Acids/ Electrolytes/ Dextrose 2,000 ml @ 75 mls/hr Q24H IV 09/27/16 21:00 10/27/16 20:59 UNV Amlodipine Besylate (Norvasc) 10 mg DAILY GT 09/27/16 09:00 10/27/16 08:59 09/27/16 09:02 Bethanechol Chloride (Urecholine) 10 mg THREE TIMES A DAY ORAL 09/26/16 13:00 10/26/16 12:59 09/27/16 17:17 Chlorhexidine Gluconate (Lakshmi-Hex 2%) 1 applic Q24H TOPIC 09/26/16 21:00 10/26/16 20:59 09/27/16 21:54 Dextrose (D10w) 1,000 ml @ 0 mls/hr Q24H PRN IV PN interrupted or unavailable 09/27/16 18:15 10/27/16 18:14 UNV Dextrose (Dextrose 50%) STAT PRN IV Hypoglycemia 09/26/16 23:00 10/26/16 22:59 Dextrose STAT PRN IV Hypoglycemia 09/27/16 18:15 10/27/16 18:14 UNV Dextrose/Sodium Chloride 1,000 ml @ 50 mls/hr Q20H IV 09/26/16 12:00 10/26/16 11:59 09/28/16 04:31 Fat Emulsion Intravenous 250 ml @ 10.4 mls/hr Q24H IV 09/27/16 21:00 10/27/16 20:59 UNV Heparin Sodium (Porcine) (Heparin 5000 units/ml) 5,000 units EVERY 12 HOURS SUBQ 09/26/16 21:00 10/26/16 20:59 09/27/16 21:52 Insulin Aspart (NovoLOG) EVERY 6 HOURS SUBQ 09/26/16 12:00 10/26/16 11:59 09/28/16 05:31 Lansoprazole (Prevacid) 30 mg DAILY GT 09/27/16 09:00 10/27/16 08:59 09/27/16 09:01 Metoclopramide HCl (Reglan) 5 mg Q6HR NG 09/26/16 12:00 10/26/16 11:59 09/28/16 05:30 Minoxidil (Loniten) 15 mg BID GT 09/26/16 18:00 10/26/16 17:59 09/27/16 09:02 Phenytoin (Dilantin) 300 mg Q12HR GT 09/26/16 21:00 10/26/16 20:59 09/27/16 21:49 Phenytoin/Sodium Chloride (Dilantin/Sodium Chloride) 120 ml @ 120 mls/hr POSTHD IVPB 09/26/16 21:00 10/26/16 20:59 09/28/16 00:21 Piperacillin Sod/ Tazobactam Sod/ Dextrose (Zosyn/D5W) 55 ml @ 110 mls/hr Q8HR IVPB 09/28/16 14:00 10/03/16 13:59 Polyethylene Glycol (Miralax) 17 gm DAILYPRN PRN ORAL Constipation 09/26/16 23:00 10/26/16 22:59 Valproic Acid (Depakene) 1,000 mg POSTHD GT 09/26/16 11:00 10/26/16 10:59 Valproic Acid 1500 mg 1,500 mg Q12HR GT 09/26/16 21:00 10/26/16 20:59 09/27/16 21:50 KOLTON RENTERIA DO Sep 28, 2016 08:48
[2016-09-28] MEDS ORDERED: D5 1/2NS 1000ml IV ONE (09:39)
[2016-09-28 12:00] VITALS: BP 115/39
[2016-09-28] MEDS: Piperacillin/Tazobactam 2.25 GM in D5W 55 ML IVPB SCH ×2 (13:08→22:40)
--- NOTE | 2016-09-28 14:34 | Internal Med Progress Note ---
Subjective Date of Service: Sep 28, 2016 Physician Name Filiberto Clancy Attending Physician Harrison Delatorre Current Medications Medications (Trade) Dose Ordered Sig/Mark Route PRN Reason Start Time Stop Time Status Last Admin Dose Admin Acetaminophen (Tylenol) 650 mg Q4H PRN ORAL Mild Pain (Pain Scale 1-3) 09/26/16 11:00 10/26/16 10:59 09/27/16 09:03 Amlodipine Besylate (Norvasc) 10 mg DAILY GT 09/27/16 09:00 10/27/16 08:59 09/28/16 08:47 Bethanechol Chloride (Urecholine) 10 mg THREE TIMES A DAY ORAL 09/26/16 13:00 10/26/16 12:59 09/28/16 12:17 Chlorhexidine Gluconate (Lakshmi-Hex 2%) 1 applic Q24H TOPIC 09/26/16 21:00 10/26/16 20:59 09/27/16 21:54 Dextrose (D10w) 1,000 ml @ 0 mls/hr Q24H PRN IV PN interrupted or unavailable 09/28/16 21:00 10/28/16 20:59 Dextrose STAT PRN IV Hypoglycemia 09/28/16 12:00 10/28/16 11:59 Dextrose/Sodium Chloride 1,000 ml @ 50 mls/hr Q20H IV 09/26/16 12:00 09/28/16 20:59 09/28/16 04:31 Fat Emulsion Intravenous 240 ml/Amino Acids/ Electrolytes/ Dextrose 1,608 ml @ 67 mls/hr Q24H IV 09/28/16 21:00 10/28/16 20:59 Heparin Sodium (Porcine) (Heparin 5000 units/ml) 5,000 units EVERY 12 HOURS SUBQ 09/26/16 21:00 10/26/16 20:59 09/28/16 08:46 Insulin Aspart (NovoLOG) EVERY 6 HOURS SUBQ 09/26/16 12:00 10/26/16 11:59 09/28/16 12:18 Lansoprazole (Prevacid) 30 mg DAILY GT 09/27/16 09:00 10/27/16 08:59 09/28/16 08:46 Metoclopramide HCl (Reglan) 5 mg Q6HR NG 09/26/16 12:00 10/26/16 11:59 09/28/16 12:17 Minoxidil (Loniten) 15 mg BID GT 09/26/16 18:00 10/26/16 17:59 09/28/16 08:47 Phenytoin (Dilantin) 300 mg Q12HR GT 09/26/16 21:00 10/26/16 20:59 09/28/16 08:45 Phenytoin/Sodium Chloride (Dilantin/Sodium Chloride) 120 ml @ 120 mls/hr POSTHD IVPB 09/26/16 21:00 10/26/16 20:59 09/28/16 00:21 Phytonadione (Vitamin K) 10 mg QWEEK SUBQ 09/28/16 21:00 10/28/16 20:59 Piperacillin Sod/ Tazobactam Sod/ Dextrose (Zosyn/D5W) 55 ml @ 110 mls/hr Q8HR IVPB 09/28/16 14:00 10/03/16 13:59 09/28/16 13:08 Polyethylene Glycol (Miralax) 17 gm DAILYPRN PRN ORAL Constipation 09/26/16 23:00 10/26/16 22:59 Valproic Acid (Depakene) 1,000 mg POSTHD GT 09/26/16 11:00 10/26/16 10:59 Valproic Acid 1500 mg 1,500 mg Q12HR GT 09/26/16 21:00 10/26/16 20:59 09/28/16 08:45 Allergies: Coded Allergies: NIACIN (Verified Allergy, Unknown, ITCHING, 01/30/12) ROS Limited/Unobtainable: Yes Subjective 71 YO M admitted with volume overload and respiratory failure. S/P cardiopulmonary arrest. WILD. Intubated. Now acute pancreatitis and Low grade fever. Cover for Int Med-Dr Vail. S/P PEG 09/23/16. S/P Tracheostomy 09/24/16 Objective Last Vital Signs Date Time Temp Pulse Resp B/P Pulse Ox O2 Delivery O2 Flow Rate FiO2 09/28/16 12:49 92 21 30 09/28/16 12:00 99.5 115/39 15 Mechanical Ventilator 09/28/16 04:00 4.0 Laboratory Tests Test 09/28/16 06:40 White Blood Count 14.7 K/UL (4.8-10.8) H Red Blood Count 2.91 M/UL (4.70-6.10) L Hemoglobin 8.7 G/DL (14.2-18.0) L Hematocrit 29.4 % (42.0-52.0) L Mean Corpuscular Volume 101 FL (80-99) H Mean Corpuscular Hemoglobin 29.9 PG (27.0-31.0) Mean Corpuscular Hemoglobin Concent 29.6 G/DL (32.0-36.0) L Red Cell Distribution Width 16.3 % (11.6-14.8) H Platelet Count 269 K/UL (150-450) Mean Platelet Volume 6.1 FL (6.5-10.1) L Neutrophils (%) (Auto) 75.9 % (45.0-75.0) H Lymphocytes (%) (Auto) 9.7 % (20.0-45.0) L Monocytes (%) (Auto) 10.9 % (1.0-10.0) H Eosinophils (%) (Auto) 1.6 % (0.0-3.0) Basophils (%) (Auto) 1.8 % (0.0-2.0) Sodium Level 142 mEQ/L (135-145) Potassium Level 3.5 mEQ/L (3.4-4.9) Chloride Level 96 mEQ/L (98-107) L Carbon Dioxide Level 28 mEQ/L (20-30) Anion Gap 18 (5-15) H Blood Urea Nitrogen 28 mg/dL (7-23) #H Creatinine 4.1 mg/dL (0.7-1.2) H Estimat Glomerular Filtration Rate 14.5 mL/min (>60) Glucose Level 208 mg/dL (74-106) H Calcium Level 9.3 mg/dL (8.6-10.2) Triglycerides Level 470 mg/dL (< 150) H Cholesterol Level 184 mg/dL (< 200) LDL Cholesterol 75 mg/dL (60-99) HDL Cholesterol 15 mg/dL (> 60) Cholesterol/HDL Ratio 12.3 (3.3-4.4) H Amylase Level 869 U/L (10-110) *H Lipase 1451 U/L (< 60) H Intake and Output 09/27/16 09/28/16 19:00 07:00 Intake Total 690 ml 630 ml Output Total 0 ml Balance 690 ml 630 ml IV Total 600 ml 570 ml Other 90 ml 60 ml Hemodialysis UF 0 ml # Bowel Movements 4 2 Objective General Appearance: WD/WN, lethargic EENT: PERRL/EOMI, normal ENT inspection, TMs normal Neck: non-tender, normal alignment, supple Cardiovascular: normal peripheral pulses, normal rate, regular rhythm, no gallop/murmur, no JVD Respiratory/Chest: Mech vent; chest wall non-tender, crackles/rales, rhonchi - bilaterally, expiratory wheezing Abdomen: normal bowel sounds, non tender, soft, no organomegaly Skin: normal pigmentation, warm/dry Assessment/Plan Problem List: (1) HTN (hypertension) Assessment & Plan: Cont amlodipine. (2) Hyperkalemia (3) Respiratory failure with hypoxia Assessment & Plan: Intubated and sedated. S/P Tracheostomy 09/24/16. (4) ESRD (end stage renal disease) Assessment & Plan: See nephrology note. Last Hemodialysis 09/23/16 per nephrology (5) CHF (congestive heart failure) (6) Diabetes mellitus Assessment & Plan: Cont novolog sliding scale. 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 (9) Anoxic encephalopathy syndrome Assessment & Plan: See neruo note. (10) Enterobacter sepsis (11) Pneumonia Assessment & Plan: Enterobacter. Cont Levaquin per ID (12) Anemia (13) Dysphagia Assessment & Plan: S/P PEG 09/23/16. (14) Cholecystitis, acute Assessment & Plan: See Surgery note. Not surgical candidate at this time. (15) Pancreatitis, acute Assessment & Plan: See GI note. Hold tube feeds. Pancrelipase. (16) Fever Assessment & Plan: See ID note. Status: not improved Assessment/Plan Discharge to [facility] when accepted-see case management note. FILIBERTO CLANCY Sep 28, 2016 14:34
[2016-09-28 16:00] VITALS: BP 130/52
--- NOTE | 2016-09-28 18:02 | Nephrology Progress Note ---
Assessment/Plan Problem List: (1) ESRD (end stage renal disease) (2) Anoxic encephalopathy syndrome (3) Respiratory failure with hypoxia (4) CHF (congestive heart failure) (5) HTN (hypertension) (6) Acute pancreatitis Assessment: not better Plan HD Thursday will start TPN tonight Vent support follow labs NPO Discussed with family Subjective Subjective In NAD Objective Objective Last 24 Hour Vital Signs Date Time Temp Pulse Resp B/P Pulse Ox O2 Delivery O2 Flow Rate FiO2 09/28/16 17:09 130/52 09/28/16 16:43 94 12 30 09/28/16 16:00 98.6 77 21 130/52 100 Mechanical Ventilator 30 09/28/16 16:00 30 09/28/16 15:50 82 09/28/16 15:11 97 21 30 09/28/16 12:49 92 21 30 09/28/16 12:00 30 09/28/16 12:00 99.5 79 12 115/39 15 Mechanical Ventilator 30 09/28/16 11:55 76 09/28/16 10:39 91 14 30 09/28/16 09:09 82 14 30 09/28/16 08:47 111/45 09/28/16 08:47 79 111/45 09/28/16 08:00 99.2 79 12 111/45 100 Mechanical Ventilator 30 09/28/16 08:00 30 09/28/16 07:53 77 09/28/16 07:06 85 24 30 09/28/16 05:05 83 15 30 09/28/16 04:00 30 09/28/16 04:00 88 09/28/16 04:00 97.0 85 20 143/52 100 Mechanical Ventilator 4.0 30 09/28/16 02:43 85 25 30 09/28/16 00:36 86 25 30 09/28/16 00:00 4.0 30 09/28/16 00:00 99.4 96 20 151/59 100 Mechanical Ventilator 4.0 30 09/28/16 00:00 94 09/27/16 22:51 101 25 30 09/27/16 20:55 90 23 30 09/27/16 20:00 99.4 92 20 150/66 100 Mechanical Ventilator 4.0 30 09/27/16 20:00 94 09/27/16 20:00 4.0 30 09/27/16 19:19 Mechanical Ventilator 4.0 30 09/27/16 18:34 89 20 30 Intake and Output 09/27/16 09/28/16 19:00 07:00 Intake Total 690 ml 630 ml Output Total 0 ml Balance 690 ml 630 ml IV Total 600 ml 570 ml Other 90 ml 60 ml Hemodialysis UF 0 ml # Bowel Movements 4 2 Laboratory Tests 09/28/16 06:40: White Blood Count 14.7H, Red Blood Count 2.91L, Hemoglobin 8.7L, Hematocrit 29.4L, Mean Corpuscular Volume 101H, Mean Corpuscular Hemoglobin 29.9, Mean Corpuscular Hemoglobin Concent 29.6L, Red Cell Distribution Width 16.3H, Platelet Count 269, Mean Platelet Volume 6.1L, Neutrophils (%) (Auto) 75.9H, Lymphocytes (%) (Auto) 9.7L, Monocytes (%) (Auto) 10.9H, Eosinophils (%) (Auto) 1.6, Basophils (%) (Auto) 1.8, Sodium Level 142, Potassium Level 3.5, Chloride Level 96L, Carbon Dioxide Level 28, Anion Gap 18H, Blood Urea Nitrogen 28#H, Creatinine 4.1H, Estimat Glomerular Filtration Rate 14.5, Glucose Level 208H, Calcium Level 9.3, Triglycerides Level 470H, Cholesterol Level 184, LDL Cholesterol 75, HDL Cholesterol 15, Cholesterol/HDL Ratio 12.3H, Amylase Level 869*H, Lipase 1451H Height (Feet): 5 Height (Inches): 9.00 Weight (Pounds): 166 Cardiovascular: normal rate Respiratory/Chest: lungs clear Extremities: trace edema CANDICE BREAUX Sep 28, 2016 18:02
--- NOTE | 2016-09-28 18:40 | Cardiology Progress Note ---
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 Subjective Subjective patient is unresponsive he moves all the extremities doew not react to his family which is at the bedside Objective Last 24 Hour Vital Signs Date Time Temp Pulse Resp B/P Pulse Ox O2 Delivery O2 Flow Rate FiO2 09/28/16 17:09 130/52 09/28/16 16:43 94 12 30 09/28/16 16:00 98.6 77 21 130/52 100 Mechanical Ventilator 30 09/28/16 16:00 30 09/28/16 15:50 82 09/28/16 15:11 97 21 30 09/28/16 12:49 92 21 30 09/28/16 12:00 30 09/28/16 12:00 99.5 79 12 115/39 15 Mechanical Ventilator 30 09/28/16 11:55 76 09/28/16 10:39 91 14 30 09/28/16 09:09 82 14 30 09/28/16 08:47 111/45 09/28/16 08:47 79 111/45 09/28/16 08:00 99.2 79 12 111/45 100 Mechanical Ventilator 30 09/28/16 08:00 30 09/28/16 07:53 77 09/28/16 07:06 85 24 30 09/28/16 05:05 83 15 30 09/28/16 04:00 30 09/28/16 04:00 88 09/28/16 04:00 97.0 85 20 143/52 100 Mechanical Ventilator 4.0 30 09/28/16 02:43 85 25 30 09/28/16 00:36 86 25 30 09/28/16 00:00 4.0 30 09/28/16 00:00 99.4 96 20 151/59 100 Mechanical Ventilator 4.0 30 09/28/16 00:00 94 09/27/16 22:51 101 25 30 09/27/16 20:55 90 23 30 09/27/16 20:00 99.4 92 20 150/66 100 Mechanical Ventilator 4.0 30 09/27/16 20:00 94 09/27/16 20:00 4.0 30 09/27/16 19:19 Mechanical Ventilator 4.0 30 General Appearance: on vent EENT: other - eyes are closed Neck: no JVD, other - tracheostomy Rhythm: NSR Cardiovascular: regularly irregular Respiratory/Chest: rhonchi - bilaterally Abdomen: soft Neurologic: other - moves expretities, but does not communicate Intake and Output 09/27/16 09/28/16 19:00 07:00 Intake Total 690 ml 630 ml Output Total 0 ml Balance 690 ml 630 ml IV Total 600 ml 570 ml Other 90 ml 60 ml Hemodialysis UF 0 ml # Bowel Movements 4 2 Laboratory Tests Test 09/28/16 06:40 White Blood Count 14.7 K/UL (4.8-10.8) H Red Blood Count 2.91 M/UL (4.70-6.10) L Hemoglobin 8.7 G/DL (14.2-18.0) L Hematocrit 29.4 % (42.0-52.0) L Mean Corpuscular Volume 101 FL (80-99) H Mean Corpuscular Hemoglobin 29.9 PG (27.0-31.0) Mean Corpuscular Hemoglobin Concent 29.6 G/DL (32.0-36.0) L Red Cell Distribution Width 16.3 % (11.6-14.8) H Platelet Count 269 K/UL (150-450) Mean Platelet Volume 6.1 FL (6.5-10.1) L Neutrophils (%) (Auto) 75.9 % (45.0-75.0) H Lymphocytes (%) (Auto) 9.7 % (20.0-45.0) L Monocytes (%) (Auto) 10.9 % (1.0-10.0) H Eosinophils (%) (Auto) 1.6 % (0.0-3.0) Basophils (%) (Auto) 1.8 % (0.0-2.0) Sodium Level 142 mEQ/L (135-145) Potassium Level 3.5 mEQ/L (3.4-4.9) Chloride Level 96 mEQ/L (98-107) L Carbon Dioxide Level 28 mEQ/L (20-30) Anion Gap 18 (5-15) H Blood Urea Nitrogen 28 mg/dL (7-23) #H Creatinine 4.1 mg/dL (0.7-1.2) H Estimat Glomerular Filtration Rate 14.5 mL/min (>60) Glucose Level 208 mg/dL (74-106) H Calcium Level 9.3 mg/dL (8.6-10.2) Triglycerides Level 470 mg/dL (< 150) H Cholesterol Level 184 mg/dL (< 200) LDL Cholesterol 75 mg/dL (60-99) HDL Cholesterol 15 mg/dL (> 60) Cholesterol/HDL Ratio 12.3 (3.3-4.4) H Amylase Level 869 U/L (10-110) *H Lipase 1451 U/L (< 60) H JUANA YANG Sep 28, 2016 18:39
[2016-09-28 20:00] VITALS: BP 159/59
[2016-09-28] MEDS ORDERED: TPN IV SCH (21:00)
[2016-09-28] MEDS ORDERED: Dextrose 10% 1,000 ML IV PRN (21:00)
[2016-09-28] MEDS ORDERED: FAT EMULSION 20% IV SCH (21:00)
[2016-09-28] MEDS: Dyna-Hex 2% Top Sol 8oz TOPIC SCH (21:19)
[2016-09-28] MEDS: Phytonadione 10 mg/mL 1ml amp SUBQ SCH (21:48)
[2016-09-29] VITALS: BP 154/90
[2016-09-29] MEDS: NovoLOG Insulin Flexpen SUBQ SCH ×5 (00:12→23:56)
[2016-09-29] MEDS: Metoclopramide 10mg/10ml Liq NG SCH ×5 (00:16→23:54)
[2016-09-29 04:00] VITALS: BP 162/62
[2016-09-29] MEDS: Piperacillin/Tazobactam 2.25 GM in D5W 55 ML IVPB SCH ×3 (05:45→21:27)
[2016-09-29 06:16] LABS: BASOPHILS % (AUTO) 1.4 % (0.0-2.0); EOSINOPHILS % (AUTO) 2.8 % (0.0-3.0); LYMPHOCYTES % (AUTO) 7.9 % (20.0-45.0); MAGNESIUM 1.9 mg/dL (1.7-2.5); MEAN CORPUSCULAR HEMOGLOBIN 31.5 PG (27.0-31.0); MEAN CORPUSCULAR HGB CONC 31.2 G/DL (32.0-36.0); MEAN CORPUSCULAR VOLUME 101 FL (80-99); MEAN PLATELET VOLUME 6.4 FL (6.5-10.1); NEUTROPHILS % (AUTO) 77.9 % (45.0-75.0); PHOSPHORUS 5.1 mg/dL (2.5-4.8); PLATELET COUNT 285 K/UL (150-450); RED BLOOD COUNT 2.59 M/UL (4.70-6.10); RED CELL DISTRIBUTION WIDTH 15.5 % (11.6-14.8); WHITE BLOOD COUNT 12.7 K/UL (4.8-10.8)
[2016-09-29 06:24] LABS: CALCIUM 9.4 mg/dL (8.6-10.2); CREATININE 5.1 mg/dL (0.7-1.2); GLOMERULAR FILTRATION RATE 11.3 mL/min (>60); POTASSIUM 3.3 mEQ/L (3.4-4.9)
[2016-09-29 07:00] LABS: AMYLASE 961 U/L (10-110); LIPASE 2536 U/L (< 60)
[2016-09-29 08:00] VITALS: BP 133/51
--- NOTE | 2016-09-29 09:03 | Infectious Diseases Prog Note ---
Assessment/Plan Assessment/Plan A; Acute pancreatitis pneumonia with Enterobacter COPD s/p cardiac arrest Anoxic encephalopathy ESRD on HD Respiratory failure s/p tracheostomy s/p GT placement P; continue Zosyn will f/u CT scan of abdomen Subjective ROS Limited/Unobtainable: Yes Constitutional: Reports: other - afebrile Neurologic: Reports: confusion, other - restraint in left arm Allergies: Coded Allergies: NIACIN (Verified Allergy, Unknown, ITCHING, 01/30/12) Objective Vital Signs Last 24 Hour Vital Signs Date Time Temp Pulse Resp B/P Pulse Ox O2 Delivery O2 Flow Rate FiO2 09/29/16 07:25 92 27 30 09/29/16 04:46 90 18 30 09/29/16 04:00 89 09/29/16 04:00 30 09/29/16 04:00 97.7 87 15 162/62 94 Mechanical Ventilator 09/29/16 03:11 94 17 30 09/29/16 01:11 96 22 30 09/29/16 00:00 30 09/29/16 00:00 83 09/29/16 00:00 96.8 80 14 154/90 100 Mechanical Ventilator 09/28/16 23:04 91 12 30 09/28/16 21:30 93 12 30 09/28/16 20:00 97.7 77 16 159/59 100 Mechanical Ventilator 09/28/16 20:00 83 09/28/16 20:00 30 09/28/16 19:30 92 12 30 09/28/16 17:09 130/52 09/28/16 16:43 94 12 30 09/28/16 16:00 98.6 77 21 130/52 100 Mechanical Ventilator 30 09/28/16 16:00 30 09/28/16 15:50 82 09/28/16 15:11 97 21 30 09/28/16 12:49 92 21 30 09/28/16 12:00 30 09/28/16 12:00 99.5 79 12 115/39 15 Mechanical Ventilator 30 09/28/16 11:55 76 09/28/16 10:39 91 14 30 09/28/16 09:09 82 14 30 Height (Feet): 5 Height (Inches): 9.00 Weight (Pounds): 161 General Appearance: no acute distress HEENT: status post trach Respiratory/Chest: lungs clear Cardiovascular: normal rate Abdomen: soft, non tender Extremities: no edema Neurologic/Psychiatric: unresponsiveness Laboratory Tests Test 09/29/16 04:20 White Blood Count 12.7 K/UL (4.8-10.8) H Red Blood Count 2.59 M/UL (4.70-6.10) L Hemoglobin 8.2 G/DL (14.2-18.0) L Hematocrit 26.2 % (42.0-52.0) L Mean Corpuscular Volume 101 FL (80-99) H Mean Corpuscular Hemoglobin 31.5 PG (27.0-31.0) H Mean Corpuscular Hemoglobin Concent 31.2 G/DL (32.0-36.0) L Red Cell Distribution Width 15.5 % (11.6-14.8) H Platelet Count 285 K/UL (150-450) Mean Platelet Volume 6.4 FL (6.5-10.1) L Neutrophils (%) (Auto) 77.9 % (45.0-75.0) H Lymphocytes (%) (Auto) 7.9 % (20.0-45.0) L Monocytes (%) (Auto) 10.0 % (1.0-10.0) Eosinophils (%) (Auto) 2.8 % (0.0-3.0) Basophils (%) (Auto) 1.4 % (0.0-2.0) Sodium Level 143 mEQ/L (135-145) Potassium Level 3.3 mEQ/L (3.4-4.9) L Chloride Level 93 mEQ/L (98-107) L Carbon Dioxide Level 27 mEQ/L (20-30) Anion Gap 23 (5-15) H Blood Urea Nitrogen 36 mg/dL (7-23) H Creatinine 5.1 mg/dL (0.7-1.2) H Estimat Glomerular Filtration Rate 11.3 mL/min (>60) Glucose Level 357 mg/dL (74-106) #H Calcium Level 9.4 mg/dL (8.6-10.2) Phosphorus Level 5.1 mg/dL (2.5-4.8) H Magnesium Level 1.9 mg/dL (1.7-2.5) Amylase Level 961 U/L (10-110) *H Lipase 2536 U/L (< 60) H Current Medications Medications (Trade) Dose Ordered Sig/Mark Route PRN Reason Start Time Stop Time Status Last Admin Dose Admin Acetaminophen (Tylenol) 650 mg Q4H PRN ORAL Mild Pain (Pain Scale 1-3) 09/26/16 11:00 10/26/16 10:59 09/27/16 09:03 Amlodipine Besylate (Norvasc) 10 mg DAILY GT 09/27/16 09:00 10/27/16 08:59 09/28/16 08:47 Bethanechol Chloride (Urecholine) 10 mg THREE TIMES A DAY ORAL 09/26/16 13:00 10/26/16 12:59 09/28/16 17:09 Chlorhexidine Gluconate (Lakshmi-Hex 2%) 1 applic Q24H TOPIC 09/26/16 21:00 10/26/16 20:59 09/28/16 21:19 Dextrose (D10w) 1,000 ml @ 0 mls/hr Q24H PRN IV PN interrupted or unavailable 09/28/16 21:00 10/28/16 20:59 Dextrose STAT PRN IV Hypoglycemia 09/28/16 12:00 10/28/16 11:59 Fat Emulsion Intravenous 240 ml/Amino Acids/ Electrolytes/ Dextrose 1,608 ml @ 67 mls/hr Q24H IV 09/28/16 21:00 10/28/16 20:59 09/28/16 21:00 Heparin Sodium (Porcine) (Heparin 5000 units/ml) 5,000 units EVERY 12 HOURS SUBQ 09/26/16 21:00 10/26/16 20:59 09/28/16 21:47 Insulin Aspart (NovoLOG) EVERY 6 HOURS SUBQ 09/26/16 12:00 10/26/16 11:59 09/29/16 05:53 Lansoprazole (Prevacid) 30 mg DAILY GT 09/27/16 09:00 10/27/16 08:59 09/28/16 08:46 Metoclopramide HCl (Reglan) 5 mg Q6HR NG 09/26/16 12:00 10/26/16 11:59 09/29/16 05:45 Minoxidil (Loniten) 15 mg BID GT 09/26/16 18:00 10/26/16 17:59 09/28/16 17:09 Phenytoin (Dilantin) 300 mg Q12HR GT 09/26/16 21:00 10/26/16 20:59 09/28/16 21:20 Phenytoin/Sodium Chloride (Dilantin/Sodium Chloride) 120 ml @ 120 mls/hr POSTHD IVPB 09/26/16 21:00 10/26/16 20:59 09/28/16 00:21 Phytonadione (Vitamin K) 10 mg QWEEK SUBQ 09/28/16 21:00 10/28/16 20:59 09/28/16 21:48 Piperacillin Sod/ Tazobactam Sod/ Dextrose (Zosyn/D5W) 55 ml @ 110 mls/hr Q8HR IVPB 09/28/16 14:00 10/03/16 13:59 09/29/16 05:45 Polyethylene Glycol (Miralax) 17 gm DAILYPRN PRN ORAL Constipation 09/26/16 23:00 10/26/16 22:59 Valproic Acid (Depakene) 1,000 mg POSTHD GT 09/26/16 11:00 10/26/16 10:59 09/28/16 17:09 Valproic Acid 1500 mg 1,500 mg Q12HR GT 09/26/16 21:00 10/26/16 20:59 09/28/16 21:21 ROZINA BREAUX Sep 29, 2016 09:03
[2016-09-29] MEDS: Heparin 5000 units/ml inj SUBQ SCH ×2 (09:20→20:23)
[2016-09-29] MEDS: Valproic Acid 250mg/5ml Liquid GT SCH ×2 (09:23→20:24)
[2016-09-29] MEDS: Minoxidil 10mg tab GT SCH ×2 (09:23→18:38)
[2016-09-29] MEDS: Phenytoin Susp 100mg/4ml GT SCH ×2 (09:23→20:24)
[2016-09-29] MEDS: Bethanechol 10mg Tab ORAL SCH ×3 (09:24→18:37)
[2016-09-29 12:00] VITALS: BP 112/48
--- NOTE | 2016-09-29 12:08 | Nephrology Progress Note ---
Assessment/Plan Problem List: (1) ESRD (end stage renal disease) (2) Anoxic encephalopathy syndrome (3) Respiratory failure with hypoxia (4) CHF (congestive heart failure) (5) HTN (hypertension) (6) Acute pancreatitis Assessment: not better Plan HD Thursday Add Insulin to TPN tonight Vent support follow labs NPO Discussed with RN and pharmacist and dr Arias Subjective Subjective In NAD Objective Objective Last 24 Hour Vital Signs Date Time Temp Pulse Resp B/P Pulse Ox O2 Delivery O2 Flow Rate FiO2 09/29/16 11:12 94 24 30 09/29/16 09:25 91 133/51 09/29/16 09:23 162/62 09/29/16 09:20 90 23 30 09/29/16 08:00 30 09/29/16 08:00 98.1 91 20 133/51 99 Mechanical Ventilator 09/29/16 08:00 91 09/29/16 07:25 92 27 30 09/29/16 04:46 90 18 30 09/29/16 04:00 89 09/29/16 04:00 30 09/29/16 04:00 97.7 87 15 162/62 94 Mechanical Ventilator 09/29/16 03:11 94 17 30 09/29/16 01:11 96 22 30 09/29/16 00:00 30 09/29/16 00:00 83 09/29/16 00:00 96.8 80 14 154/90 100 Mechanical Ventilator 09/28/16 23:04 91 12 30 09/28/16 21:30 93 12 30 09/28/16 20:00 97.7 77 16 159/59 100 Mechanical Ventilator 09/28/16 20:00 83 09/28/16 20:00 30 09/28/16 19:30 92 12 30 09/28/16 17:09 130/52 09/28/16 16:43 94 12 30 09/28/16 16:00 98.6 77 21 130/52 100 Mechanical Ventilator 30 09/28/16 16:00 30 09/28/16 15:50 82 09/28/16 15:11 97 21 30 09/28/16 12:49 92 21 30 Intake and Output 09/28/16 09/29/16 19:00 07:00 Intake Total 710 ml 868 ml Balance 710 ml 868 ml Free Water 50 ml IV Total 710 ml 768 ml Other 50 ml # Voids 3 # Bowel Movements 4 5 Laboratory Tests 09/29/16 04:20: White Blood Count 12.7H, Red Blood Count 2.59L, Hemoglobin 8.2L, Hematocrit 26.2L, Mean Corpuscular Volume 101H, Mean Corpuscular Hemoglobin 31.5H, Mean Corpuscular Hemoglobin Concent 31.2L, Red Cell Distribution Width 15.5H, Platelet Count 285, Mean Platelet Volume 6.4L, Neutrophils (%) (Auto) 77.9H, Lymphocytes (%) (Auto) 7.9L, Monocytes (%) (Auto) 10.0, Eosinophils (%) (Auto) 2.8, Basophils (%) (Auto) 1.4, Sodium Level 143, Potassium Level 3.3L, Chloride Level 93L, Carbon Dioxide Level 27, Anion Gap 23H, Blood Urea Nitrogen 36H, Creatinine 5.1H, Estimat Glomerular Filtration Rate 11.3, Glucose Level 357#H, Calcium Level 9.4, Phosphorus Level 5.1H, Magnesium Level 1.9, Amylase Level 961 *H, Lipase 2536H Height (Feet): 5 Height (Inches): 9.00 Weight (Pounds): 161 Cardiovascular: normal rate Respiratory/Chest: rhonchi - bilaterally Extremities: other - no edema CANDICE BREAUX Sep 29, 2016 12:08
--- NOTE | 2016-09-29 12:20 | Pulmonology Progress Note ---
Assessment/Plan Assessment/Plan 1. Status post cardiac arrest. 2. Renal failure with hyperkalemia. 3. Respiratory failure. 4. Anoxic encephalopathy. 5. Status epilepticus 6. Coronary artery disease. 7. History of cardiomyopathy. 8. Diabetes. 9. Hypertension. 10 Pancreatitis not able to tolerate weaning trial trach and vent dependent amylase higher cont TPN Bioethics mtg disc w ID, RN Subjective ROS Limited/Unobtainable: Yes Constitutional: Denies: fever Respiratory: Denies: productive cough Allergies: Coded Allergies: NIACIN (Verified Allergy, Unknown, ITCHING, 01/30/12) Objective Last 24 Hour Vital Signs Date Time Temp Pulse Resp B/P Pulse Ox O2 Delivery O2 Flow Rate FiO2 09/29/16 11:12 94 24 30 09/29/16 09:25 91 133/51 09/29/16 09:23 162/62 09/29/16 09:20 90 23 30 09/29/16 08:00 30 09/29/16 08:00 98.1 91 20 133/51 99 Mechanical Ventilator 09/29/16 08:00 91 09/29/16 07:25 92 27 30 09/29/16 04:46 90 18 30 09/29/16 04:00 89 09/29/16 04:00 30 09/29/16 04:00 97.7 87 15 162/62 94 Mechanical Ventilator 09/29/16 03:11 94 17 30 09/29/16 01:11 96 22 30 09/29/16 00:00 30 09/29/16 00:00 83 09/29/16 00:00 96.8 80 14 154/90 100 Mechanical Ventilator 09/28/16 23:04 91 12 30 09/28/16 21:30 93 12 30 09/28/16 20:00 97.7 77 16 159/59 100 Mechanical Ventilator 09/28/16 20:00 83 09/28/16 20:00 30 09/28/16 19:30 92 12 30 09/28/16 17:09 130/52 09/28/16 16:43 94 12 30 09/28/16 16:00 98.6 77 21 130/52 100 Mechanical Ventilator 30 09/28/16 16:00 30 09/28/16 15:50 82 09/28/16 15:11 97 21 30 09/28/16 12:49 92 21 30 Intake and Output 09/28/16 09/29/16 19:00 07:00 Intake Total 710 ml 868 ml Balance 710 ml 868 ml Free Water 50 ml IV Total 710 ml 768 ml Other 50 ml # Voids 3 # Bowel Movements 4 5 General Appearance: no acute distress HEENT: status post trach Respiratory/Chest: lungs clear Cardiovascular: normal rate Neurologic/Psychiatric: unresponsiveness Laboratory Tests 09/29/16 04:20: White Blood Count 12.7H, Red Blood Count 2.59L, Hemoglobin 8.2L, Hematocrit 26.2L, Mean Corpuscular Volume 101H, Mean Corpuscular Hemoglobin 31.5H, Mean Corpuscular Hemoglobin Concent 31.2L, Red Cell Distribution Width 15.5H, Platelet Count 285, Mean Platelet Volume 6.4L, Neutrophils (%) (Auto) 77.9H, Lymphocytes (%) (Auto) 7.9L, Monocytes (%) (Auto) 10.0, Eosinophils (%) (Auto) 2.8, Basophils (%) (Auto) 1.4, Sodium Level 143, Potassium Level 3.3L, Chloride Level 93L, Carbon Dioxide Level 27, Anion Gap 23H, Blood Urea Nitrogen 36H, Creatinine 5.1H, Estimat Glomerular Filtration Rate 11.3, Glucose Level 357#H, Calcium Level 9.4, Phosphorus Level 5.1H, Magnesium Level 1.9, Amylase Level 961 *H, Lipase 2536H Current Medications Medications (Trade) Dose Ordered Sig/Mark Route PRN Reason Start Time Stop Time Status Last Admin Dose Admin Acetaminophen (Tylenol) 650 mg Q4H PRN ORAL Mild Pain (Pain Scale 1-3) 09/26/16 11:00 10/26/16 10:59 09/27/16 09:03 Amlodipine Besylate (Norvasc) 10 mg DAILY GT 09/27/16 09:00 10/27/16 08:59 09/29/16 09:25 Bethanechol Chloride (Urecholine) 10 mg THREE TIMES A DAY ORAL 09/26/16 13:00 10/26/16 12:59 09/29/16 09:24 Chlorhexidine Gluconate (Lakshmi-Hex 2%) 1 applic Q24H TOPIC 09/26/16 21:00 10/26/16 20:59 09/28/16 21:19 Dextrose (D10w) 1,000 ml @ 0 mls/hr Q24H PRN IV PN interrupted or unavailable 09/28/16 21:00 10/28/16 20:59 Dextrose STAT PRN IV Hypoglycemia 09/28/16 12:00 10/28/16 11:59 Fat Emulsion Intravenous 240 ml/Amino Acids/ Electrolytes/ Dextrose 1,608 ml @ 67 mls/hr Q24H IV 09/28/16 21:00 10/28/16 20:59 09/28/16 21:00 Heparin Sodium (Porcine) (Heparin 5000 units/ml) 5,000 units EVERY 12 HOURS SUBQ 09/26/16 21:00 10/26/16 20:59 09/29/16 09:20 Heparin Sodium (Porcine) (Heparin Sod 1000 units/ml 10ml) 2,000 unit ONCE PRN IV FOR HD 09/30/16 06:00 09/30/16 23:59 Insulin Aspart (NovoLOG) EVERY 6 HOURS SUBQ 09/26/16 12:00 10/26/16 11:59 09/29/16 05:53 Lansoprazole (Prevacid) 30 mg DAILY GT 09/27/16 09:00 10/27/16 08:59 09/29/16 09:24 Metoclopramide HCl (Reglan) 5 mg Q6HR NG 09/26/16 12:00 10/26/16 11:59 09/29/16 05:45 Minoxidil (Loniten) 15 mg BID GT 09/26/16 18:00 10/26/16 17:59 09/29/16 09:23 Phenytoin (Dilantin) 300 mg Q12HR GT 09/26/16 21:00 10/26/16 20:59 09/29/16 09:23 Phenytoin/Sodium Chloride (Dilantin/Sodium Chloride) 120 ml @ 120 mls/hr POSTHD IVPB 09/26/16 21:00 10/26/16 20:59 09/28/16 00:21 Phytonadione (Vitamin K) 10 mg QWEEK SUBQ 09/28/16 21:00 10/28/16 20:59 09/28/16 21:48 Piperacillin Sod/ Tazobactam Sod/ Dextrose (Zosyn/D5W) 55 ml @ 110 mls/hr Q8HR IVPB 09/28/16 14:00 10/03/16 13:59 09/29/16 05:45 Polyethylene Glycol (Miralax) 17 gm DAILYPRN PRN ORAL Constipation 09/26/16 23:00 10/26/16 22:59 Valproic Acid (Depakene) 1,000 mg POSTHD GT 09/26/16 11:00 10/26/16 10:59 09/28/16 17:09 Valproic Acid 1500 mg 1,500 mg Q12HR GT 09/26/16 21:00 10/26/16 20:59 09/29/16 09:23 CHLOE ESQUIVEL Sep 29, 2016 12:20
[2016-09-29 16:00] VITALS: BP 140/45
--- NOTE | 2016-09-29 18:17 | Internal Med Progress Note ---
Subjective Date of Service: Sep 29, 2016 Physician Name Filiberto Clancy Attending Physician Harrison Delatorre Current Medications Medications (Trade) Dose Ordered Sig/Mark Route PRN Reason Start Time Stop Time Status Last Admin Dose Admin Acetaminophen (Tylenol) 650 mg Q4H PRN ORAL Mild Pain (Pain Scale 1-3) 09/26/16 11:00 10/26/16 10:59 09/27/16 09:03 Amlodipine Besylate (Norvasc) 10 mg DAILY GT 09/27/16 09:00 10/27/16 08:59 09/29/16 09:25 Bethanechol Chloride (Urecholine) 10 mg THREE TIMES A DAY ORAL 09/26/16 13:00 10/26/16 12:59 09/29/16 16:52 Chlorhexidine Gluconate (Lakshmi-Hex 2%) 1 applic Q24H TOPIC 09/26/16 21:00 10/26/16 20:59 09/28/16 21:19 Dextrose (D10w) 1,000 ml @ 0 mls/hr Q24H PRN IV PN interrupted or unavailable 09/28/16 21:00 10/28/16 20:59 Dextrose STAT PRN IV Hypoglycemia 09/28/16 12:00 10/28/16 11:59 Epoetin Kiko 75544 units 10,000 units [id number] SUBQ 09/29/16 21:00 10/29/16 20:59 Fat Emulsion Intravenous 240 ml/Amino Acids/ Electrolytes/ Dextrose 1,608 ml @ 67 mls/hr Q24H IV 09/28/16 21:00 09/29/16 20:59 09/28/16 21:00 Fat Emulsion Intravenous/Amino Acids/ Electrolytes/ Dextrose (Intralipids/Tpn) 1,608 ml @ 67 mls/hr Q24H IV 09/29/16 21:00 10/29/16 20:59 Heparin Sodium (Porcine) (Heparin 5000 units/ml) 5,000 units EVERY 12 HOURS SUBQ 09/26/16 21:00 10/26/16 20:59 09/29/16 09:20 Heparin Sodium (Porcine) 2000 unit 2,000 unit ONCE PRN IV FOR HD 09/30/16 06:00 09/30/16 23:59 Insulin Aspart (NovoLOG) EVERY 6 HOURS SUBQ 09/26/16 12:00 10/26/16 11:59 09/29/16 12:53 Lansoprazole (Prevacid) 30 mg DAILY GT 09/27/16 09:00 10/27/16 08:59 09/29/16 09:24 Metoclopramide HCl (Reglan) 5 mg Q6HR NG 09/26/16 12:00 10/26/16 11:59 09/29/16 12:59 Minoxidil (Loniten) 15 mg BID GT 09/26/16 18:00 10/26/16 17:59 09/29/16 09:23 Phenytoin (Dilantin) 300 mg Q12HR GT 09/26/16 21:00 10/26/16 20:59 09/29/16 09:23 Phenytoin/Sodium Chloride (Dilantin/Sodium Chloride) 120 ml @ 120 mls/hr POSTHD IVPB 09/26/16 21:00 10/26/16 20:59 09/28/16 00:21 Phytonadione (Vitamin K) 10 mg QWEEK SUBQ 09/28/16 21:00 10/28/16 20:59 09/28/16 21:48 Piperacillin Sod/ Tazobactam Sod/ Dextrose (Zosyn/D5W) 55 ml @ 110 mls/hr Q8HR IVPB 09/28/16 14:00 10/03/16 13:59 09/29/16 16:52 Polyethylene Glycol (Miralax) 17 gm DAILYPRN PRN ORAL Constipation 09/26/16 23:00 10/26/16 22:59 Potassium Chloride (KCl 20mEq/100ml Premix) 100 ml @ 50 mls/hr ONCE ONCE IVPB 09/29/16 18:15 09/29/16 20:14 UNV Valproic Acid (Depakene) 1,000 mg POSTHD GT 09/26/16 11:00 10/26/16 10:59 09/28/16 17:09 Valproic Acid 1500 mg 1,500 mg Q12HR GT 09/26/16 21:00 10/26/16 20:59 09/29/16 09:23 Allergies: Coded Allergies: NIACIN (Verified Allergy, Unknown, ITCHING, 01/30/12) ROS Limited/Unobtainable: Yes Subjective 71 YO M admitted with volume overload and respiratory failure. S/P cardiopulmonary arrest. WILD. Intubated. Now acute pancreatitis and Low grade fever. Cover for Int Brad-Dr Vial. S/P PEG 09/23/16. S/P Tracheostomy 09/24/16 Objective Last Vital Signs Date Time Temp Pulse Resp B/P Pulse Ox O2 Delivery O2 Flow Rate FiO2 09/29/16 16:47 94 25 30 09/29/16 12:00 98.2 112/48 100 Mechanical Ventilator 09/28/16 04:00 4.0 Laboratory Tests Test 09/29/16 04:20 White Blood Count 12.7 K/UL (4.8-10.8) H Red Blood Count 2.59 M/UL (4.70-6.10) L Hemoglobin 8.2 G/DL (14.2-18.0) L Hematocrit 26.2 % (42.0-52.0) L Mean Corpuscular Volume 101 FL (80-99) H Mean Corpuscular Hemoglobin 31.5 PG (27.0-31.0) H Mean Corpuscular Hemoglobin Concent 31.2 G/DL (32.0-36.0) L Red Cell Distribution Width 15.5 % (11.6-14.8) H Platelet Count 285 K/UL (150-450) Mean Platelet Volume 6.4 FL (6.5-10.1) L Neutrophils (%) (Auto) 77.9 % (45.0-75.0) H Lymphocytes (%) (Auto) 7.9 % (20.0-45.0) L Monocytes (%) (Auto) 10.0 % (1.0-10.0) Eosinophils (%) (Auto) 2.8 % (0.0-3.0) Basophils (%) (Auto) 1.4 % (0.0-2.0) Sodium Level 143 mEQ/L (135-145) Potassium Level 3.3 mEQ/L (3.4-4.9) L Chloride Level 93 mEQ/L (98-107) L Carbon Dioxide Level 27 mEQ/L (20-30) Anion Gap 23 (5-15) H Blood Urea Nitrogen 36 mg/dL (7-23) H Creatinine 5.1 mg/dL (0.7-1.2) H Estimat Glomerular Filtration Rate 11.3 mL/min (>60) Glucose Level 357 mg/dL (74-106) #H Calcium Level 9.4 mg/dL (8.6-10.2) Phosphorus Level 5.1 mg/dL (2.5-4.8) H Magnesium Level 1.9 mg/dL (1.7-2.5) Amylase Level 961 U/L (10-110) *H Lipase 2536 U/L (< 60) H Intake and Output 09/28/16 09/29/16 19:00 07:00 Intake Total 710 ml 868 ml Balance 710 ml 868 ml Free Water 50 ml IV Total 710 ml 768 ml Other 50 ml # Voids 3 # Bowel Movements 4 5 Objective General Appearance: WD/WN, lethargic EENT: PERRL/EOMI, normal ENT inspection, TMs normal Neck: non-tender, normal alignment, supple Cardiovascular: normal peripheral pulses, normal rate, regular rhythm, no gallop/murmur, no JVD Respiratory/Chest: Mech vent; chest wall non-tender, crackles/rales, rhonchi - bilaterally, expiratory wheezing Abdomen: normal bowel sounds, non tender, soft, no organomegaly Skin: normal pigmentation, warm/dry Assessment/Plan Problem List: (1) HTN (hypertension) Assessment & Plan: Cont amlodipine. (2) Hyperkalemia (3) Respiratory failure with hypoxia Assessment & Plan: Intubated and sedated. S/P Tracheostomy 09/24/16. (4) ESRD (end stage renal disease) Assessment & Plan: See nephrology note. Next Hemodialysis 09/30/16 per nephrology (5) CHF (congestive heart failure) (6) Diabetes mellitus Assessment & Plan: Cont novolog sliding scale. 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 (9) Anoxic encephalopathy syndrome Assessment & Plan: See neruo note. (10) Enterobacter sepsis (11) Pneumonia Assessment & Plan: Enterobacter. Cont Levaquin per ID (12) Anemia (13) Dysphagia Assessment & Plan: S/P PEG 09/23/16. (14) Cholecystitis, acute Assessment & Plan: See Surgery note. Not surgical candidate at this time. (15) Pancreatitis, acute Assessment & Plan: Worsening amylase and lipase. See GI note. Await CT result. Hold tube feeds. Pancrelipase. (16) Fever Assessment & Plan: See ID note. Status: not improved Assessment/Plan [facility]-see case management note. FILIBERTO CLANCY Sep 29, 2016 18:17
[2016-09-29 20:20] VITALS: BP 124/50
[2016-09-29] MEDS: Dyna-Hex 2% Top Sol 8oz TOPIC SCH (20:25)
[2016-09-29] MEDS ORDERED: TPN IV SCH (21:00)
[2016-09-29] MEDS ORDERED: FAT EMULSION 20% IV SCH (21:00)
[2016-09-29] MEDS: Epogen (for ESRD on dialysis) SUBQ SCH (21:27)
[2016-09-30] VITALS (7 sets, daily range): BP systolic 109–142; BP diastolic 50–59
[2016-09-30 05:10] LABS: BASOPHILS % (AUTO) 1.9 % (0.0-2.0); EOSINOPHILS % (AUTO) 2.8 % (0.0-3.0); MEAN CORPUSCULAR HEMOGLOBIN 31.8 PG (27.0-31.0); MEAN CORPUSCULAR VOLUME 100 FL (80-99); MEAN PLATELET VOLUME 6.4 FL (6.5-10.1); MONOCYTES % (AUTO) 9.3 % (1.0-10.0); PLATELET COUNT 300 K/UL (150-450); RED BLOOD COUNT 2.66 M/UL (4.70-6.10); RED CELL DISTRIBUTION WIDTH 15.7 % (11.6-14.8)
[2016-09-30] MEDS: Piperacillin/Tazobactam 2.25 GM in D5W 55 ML IVPB SCH ×3 (05:25→20:59)
[2016-09-30] MEDS: Metoclopramide 10mg/10ml Liq NG SCH ×3 (05:26→18:58)
[2016-09-30] MEDS: NovoLOG Insulin Flexpen SUBQ SCH ×3 (05:36→18:00)
[2016-09-30 05:38] LABS: ALBUMIN/GLOBULIN RATIO 0.5 (1.0-2.7); CALCIUM 9.5 mg/dL (8.6-10.2); CREATININE 5.8 mg/dL (0.7-1.2); GLOMERULAR FILTRATION RATE 9.7 mL/min (>60); POTASSIUM 3.4 mEQ/L (3.4-4.9); TOTAL PROTEIN 6.9 g/dL (6.6-8.7)
[2016-09-30] MEDS ORDERED: Heparin Sod 1000 units/ml 10ml IV PRN (06:00)
--- NOTE | 2016-09-30 07:20 | General Progress Note ---
Assessment/Plan Assessment/Plan Assessment - possible DM gastroparesis - Acute pancreatitis, presumed due to gallstone - Leukocytosis - encephalopathy - resp failure - DM - renal failure - Anemia, presumed due to renal failure Recommendations - PPI - Reglan / bethanecol - continue TPN - await f/u CT scan - abx per ID Subjective Allergies: Coded Allergies: NIACIN (Verified Allergy, Unknown, ITCHING, 01/30/12) Subjective Above noted continues to have elevated amylase and lipase on TPN f/u CT ordered on 09/27 has not been done yet original CT done on 09/23 has been read but not dictated yet above d/w radiology dept Objective Last 24 Hour Vital Signs Date Time Temp Pulse Resp B/P Pulse Ox O2 Delivery O2 Flow Rate FiO2 09/30/16 07:11 94 30 30 09/30/16 04:10 99.0 97 28 139/58 100 Mechanical Ventilator 30 09/30/16 04:00 99 09/30/16 04:00 30 09/30/16 03:12 87 21 30 09/30/16 01:24 91 22 30 09/30/16 00:34 99.0 89 23 142/58 100 Mechanical Ventilator 30 09/30/16 00:00 99.0 89 27 142/58 100 Mechanical Ventilator 30 09/30/16 00:00 96 09/30/16 00:00 30 09/29/16 23:10 89 20 30 09/29/16 21:38 81 24 30 09/29/16 20:20 99.2 93 27 124/50 100 Mechanical Ventilator 30 09/29/16 20:00 86 09/29/16 20:00 30 09/29/16 19:22 82 24 30 09/29/16 18:38 140/45 09/29/16 16:47 94 25 30 09/29/16 16:00 30 09/29/16 16:00 88 09/29/16 16:00 97.7 87 27 140/45 100 Mechanical Ventilator 30 09/29/16 14:57 96 23 30 09/29/16 12:49 91 22 30 09/29/16 12:00 98.2 80 27 112/48 100 Mechanical Ventilator 30 09/29/16 12:00 79 09/29/16 12:00 30 09/29/16 11:12 94 24 30 6/26/17 09:25 91 133/51 09/29/16 09:23 162/62 09/29/16 09:20 90 23 30 09/29/16 08:00 30 09/29/16 08:00 98.1 91 20 133/51 99 Mechanical Ventilator 09/29/16 08:00 91 09/29/16 07:25 92 27 30 Intake and Output 09/29/16 09/30/16 19:00 07:00 Intake Total 1009 ml 268 ml Balance 1009 ml 268 ml Free Water 150 ml IV Total 859 ml 268 ml # Voids 2 # Bowel Movements 3 5 Laboratory Tests 09/30/16 03:45: White Blood Count 17.0H, Red Blood Count 2.66L, Hemoglobin 8.5L, Hematocrit 26.4L, Mean Corpuscular Volume 100H, Mean Corpuscular Hemoglobin 31.8H, Mean Corpuscular Hemoglobin Concent 32.0, Red Cell Distribution Width 15.7H, Platelet Count 300, Mean Platelet Volume 6.4L, Neutrophils (%) (Auto) 79.0H, Lymphocytes (%) (Auto) 7.0L, Monocytes (%) (Auto) 9.3, Eosinophils (%) (Auto) 2.8, Basophils (%) (Auto) 1.9, Sodium Level 144, Potassium Level 3.4, Chloride Level 95L, Carbon Dioxide Level 24, Anion Gap 25H, Blood Urea Nitrogen 52H, Creatinine 5.8H, Estimat Glomerular Filtration Rate 9.7, Glucose Level 112#H, Calcium Level 9.5, Total Bilirubin 0.3, Aspartate Amino Transf (AST/SGOT) 37, Alanine Aminotransferase (ALT/SGPT) 7, Alkaline Phosphatase 136H, Total Protein 6.9, Albumin 2.5L, Globulin 4.4, Albumin/Globulin Ratio 0.5L, Amylase Level 895* H, Lipase 2017H Height (Feet): 5 Height (Inches): 9.00 Weight (Pounds): 192 Objective Intubated and unresponsive NCAT, (+)trach supple Coarse BS RR soft ND abdomen, (+) umbilical hernia w/o change, (+) GT no edema unresponsive patient seen on 09/29/16. This is a delayed entry note ANNE CURRAN Sep 30, 2016 07:20
--- NOTE | 2016-09-30 10:11 | Pulmonology Progress Note ---
Assessment/Plan Assessment/Plan 1. Status post cardiac arrest. 2. Renal failure with hyperkalemia. 3. Respiratory failure. 4. Anoxic encephalopathy. 5. Status epilepticus 6. Coronary artery disease. 7. History of cardiomyopathy. 8. Diabetes. 9. Hypertension. 10 Pancreatitis not able to tolerate weaning trach and vent dependent ont TPN [employer] [facility] [place] keke dixon RN Subjective ROS Limited/Unobtainable: Yes Constitutional: Denies: fever Respiratory: Denies: shortness of breath Allergies: Coded Allergies: NIACIN (Verified Allergy, Unknown, ITCHING, 01/30/12) Objective Last 24 Hour Vital Signs Date Time Temp Pulse Resp B/P Pulse Ox O2 Delivery O2 Flow Rate FiO2 09/30/16 08:34 89 19 30 09/30/16 08:00 98.2 95 27 135/57 100 Mechanical Ventilator 30 09/30/16 07:11 94 30 30 09/30/16 04:10 99.0 97 28 139/58 100 Mechanical Ventilator 30 09/30/16 04:00 99 09/30/16 04:00 30 09/30/16 03:12 87 21 30 09/30/16 01:24 91 22 30 09/30/16 00:34 99.0 89 23 142/58 100 Mechanical Ventilator 30 09/30/16 00:00 99.0 89 27 142/58 100 Mechanical Ventilator 30 09/30/16 00:00 96 09/30/16 00:00 30 09/29/16 23:10 89 20 30 09/29/16 21:38 81 24 30 09/29/16 20:20 99.2 93 27 124/50 100 Mechanical Ventilator 30 09/29/16 20:00 86 09/29/16 20:00 30 09/29/16 19:22 82 24 30 09/29/16 18:38 140/45 09/29/16 16:47 94 25 30 09/29/16 16:00 30 09/29/16 16:00 88 09/29/16 16:00 97.7 87 27 140/45 100 Mechanical Ventilator 30 09/29/16 14:57 96 23 30 09/29/16 12:49 91 22 30 09/29/16 12:00 98.2 80 27 112/48 100 Mechanical Ventilator 30 09/29/16 12:00 79 09/29/16 12:00 30 09/29/16 11:12 94 24 30 Intake and Output 09/29/16 09/30/16 19:00 07:00 Intake Total 1009 ml 268 ml Balance 1009 ml 268 ml Free Water 150 ml IV Total 859 ml 268 ml # Voids 2 # Bowel Movements 3 5 General Appearance: no acute distress - agitated Respiratory/Chest: lungs clear Cardiovascular: normal rate Laboratory Tests 09/30/16 03:45: White Blood Count 17.0H, Red Blood Count 2.66L, Hemoglobin 8.5L, Hematocrit 26.4L, Mean Corpuscular Volume 100H, Mean Corpuscular Hemoglobin 31.8H, Mean Corpuscular Hemoglobin Concent 32.0, Red Cell Distribution Width 15.7H, Platelet Count 300, Mean Platelet Volume 6.4L, Neutrophils (%) (Auto) 79.0H, Lymphocytes (%) (Auto) 7.0L, Monocytes (%) (Auto) 9.3, Eosinophils (%) (Auto) 2.8, Basophils (%) (Auto) 1.9, Sodium Level 144, Potassium Level 3.4, Chloride Level 95L, Carbon Dioxide Level 24, Anion Gap 25H, Blood Urea Nitrogen 52H, Creatinine 5.8H, Estimat Glomerular Filtration Rate 9.7, Glucose Level 112#H, Calcium Level 9.5, Total Bilirubin 0.3, Aspartate Amino Transf (AST/SGOT) 37, Alanine Aminotransferase (ALT/SGPT) 7, Alkaline Phosphatase 136H, Total Protein 6.9, Albumin 2.5L, Globulin 4.4, Albumin/Globulin Ratio 0.5L, Amylase Level 895* H, Lipase 2017H Current Medications Medications (Trade) Dose Ordered Sig/Mark Route PRN Reason Start Time Stop Time Status Last Admin Dose Admin Acetaminophen (Tylenol) 650 mg Q4H PRN ORAL Mild Pain (Pain Scale 1-3) 09/26/16 11:00 10/26/16 10:59 09/27/16 09:03 Amlodipine Besylate (Norvasc) 10 mg DAILY GT 09/27/16 09:00 10/27/16 08:59 09/29/16 09:25 Bethanechol Chloride (Urecholine) 10 mg THREE TIMES A DAY ORAL 09/26/16 13:00 10/26/16 12:59 09/29/16 18:37 Chlorhexidine Gluconate (Lakshmi-Hex 2%) 1 applic Q24H TOPIC 09/26/16 21:00 10/26/16 20:59 09/29/16 20:25 Dextrose (D10w) 1,000 ml @ 0 mls/hr Q24H PRN IV PN interrupted or unavailable 09/28/16 21:00 10/28/16 20:59 Dextrose STAT PRN IV Hypoglycemia 09/28/16 12:00 10/28/16 11:59 Epoetin Kiko (Procrit (for ESRD on dialysis)) 10,000 units THU-THU-THU SUBQ 09/29/16 21:00 10/29/16 20:59 09/29/16 21:27 Fat Emulsion Intravenous/Amino Acids/ Electrolytes/ Dextrose (Intralipids/Tpn) 1,608 ml @ 67 mls/hr Q24H IV 09/29/16 21:00 10/29/16 20:59 09/29/16 20:22 Heparin Sodium (Porcine) (Heparin 5000 units/ml) 5,000 units EVERY 12 HOURS SUBQ 09/26/16 21:00 10/26/16 20:59 09/29/16 20:23 Heparin Sodium (Porcine) 2000 unit 2,000 unit ONCE PRN IV FOR HD 09/30/16 06:00 09/30/16 23:59 Insulin Aspart (NovoLOG) EVERY 6 HOURS SUBQ 09/26/16 12:00 10/26/16 11:59 09/29/16 23:56 Lansoprazole (Prevacid) 30 mg DAILY GT 09/27/16 09:00 10/27/16 08:59 09/29/16 09:24 Metoclopramide HCl (Reglan) 5 mg Q6HR NG 09/26/16 12:00 10/26/16 11:59 09/30/16 05:26 Minoxidil (Loniten) 15 mg BID GT 09/26/16 18:00 10/26/16 17:59 09/29/16 18:38 Phenytoin (Dilantin) 300 mg Q12HR GT 09/26/16 21:00 10/26/16 20:59 09/29/16 20:24 Phenytoin/Sodium Chloride (Dilantin/Sodium Chloride) 120 ml @ 120 mls/hr POSTHD IVPB 09/26/16 21:00 10/26/16 20:59 09/28/16 00:21 Phytonadione (Vitamin K) 10 mg QWEEK SUBQ 09/28/16 21:00 10/28/16 20:59 09/28/16 21:48 Piperacillin Sod/ Tazobactam Sod/ Dextrose (Zosyn/D5W) 55 ml @ 110 mls/hr Q8HR IVPB 09/28/16 14:00 10/03/16 13:59 09/30/16 05:25 Polyethylene Glycol (Miralax) 17 gm DAILYPRN PRN ORAL Constipation 09/26/16 23:00 10/26/16 22:59 Valproic Acid (Depakene) 1,000 mg POSTHD GT 09/26/16 11:00 10/26/16 10:59 09/28/16 17:09 Valproic Acid 1500 mg 1,500 mg Q12HR GT 09/26/16 21:00 10/26/16 20:59 09/29/16 20:24 CHLOE ESQUIVEL Sep 30, 2016 10:11
[2016-09-30] MEDS: Valproic Acid 250mg/5ml Liquid GT SCH ×2 (11:09→20:33)
[2016-09-30] MEDS: Phenytoin Susp 100mg/4ml GT SCH ×2 (11:10→20:48)
[2016-09-30] MEDS: Bethanechol 10mg Tab ORAL SCH ×3 (11:11→18:59)
[2016-09-30] MEDS: Minoxidil 10mg tab GT SCH ×2 (11:18→18:00)
[2016-09-30] MEDS: Heparin 5000 units/ml inj SUBQ SCH ×2 (11:23→20:37)
--- NOTE | 2016-09-30 11:29 | Diagnostic Imaging Report ---
Indications: Abdominal pain, acute pancreatitis, leukocytosis Technique: Continuous helical CT imaging of the abdomen and pelvis was performed with automatic exposure control following administration of oral and intravenous nonionic iodine contrast, on a Siemens sensation [address] scanner. Arterial and venous phase imaging performed. Axial, coronal, and sagittal images were reconstructed at 3 mm slice thickness. CTDI volume(s): 8, 81, 19, 20 mGy Total DLP: 1629 mGy-cm Findings: Comparison: Noncontrast CT abdomen pelvis 09/23/2016 Images degraded by motion. The pancreas demonstrates homogeneous parenchymal enhancement without focal abnormality. Surrounding stranding persists, decreased. No intraparenchymal or adjacent loculated fluid or extraluminal gas collections are demonstrated. Bile and pancreatic ducts remain nondilated. Medial wall of the second portion of the duodenum again demonstrates focal nodular soft tissue prominence protruding inward. Gastrointestinal tract remains nondilated throughout. Oral contrast has passed to the rectum. No obvious mural thickening, adjacent stranding, associated extraluminal gas or fluid collections. Again noted are percutaneous gastrostomy tube in the stomach, 2.3 cm circumscribed low-attenuation mass in the left adrenal gland, similar 1.2 cm mass in the right adrenal gland, 1 cm fat attenuation mass in the upper pole cortex of the right kidney, 1.5 cm partially exophytic, mildly hyperattenuating mass lower pole left kidney, prominent fat-containing umbilical hernia, prominent arterial mural calcifications with focal narrowing of the distal aortic lumen to 8 x 10 mm, mild thickening of urinary bladder wall despite distention, prominent fat-containing umbilical hernia, multiple small nodular soft tissue densities in the bilateral lower quadrant intra-abdominal wall subcutaneous soft tissues, subcutaneous stranding in both flanks, unchanged. Remainder visualized pelvic anatomy demonstrates no other obvious acute abnormality. Suggestion of increased interstitial markings persist in both lung bases. Heart remains enlarged with tip of central venous catheter in right atrium. Multilevel disc space narrowing with marginal osteophyte formation again noted in lumbar, lower thoracic spine. Mild diffuse sclerosis of the vertebral column again noted, increased in L3, unchanged. IMPRESSION: Findings compatible with acute pancreatitis, peripancreatic inflammatory changes decreased from previous exam. No evidence of associated pancreatic necrosis, developing pseudocyst, abscess, or duct obstruction Stable mural nodularity of the second portion of duodenum. Neoplasm not excludable. Consider endoscopy for further evaluation. Stable bilateral adrenal masses, probably but not definitely adenomas. MRI correlation suggested Stable right renal angiomyolipoma Stable left renal lower pole cortical masses--proteinaceous cyst versus renal cell carcinoma. Ultrasound correlation suggested. Stable thickening of urinary bladder wall--hypertrophy versus cystitis Severe arteriosclerosis with suggestion of flow-limiting stenosis in the infrarenal abdominal aorta Large fat-containing umbilical hernia Bilateral lower quadrant anterior abdominal wall subcutaneous nodules most likely represent sequelae of injection as Stable pulmonary bibasal interstitial prominence Stable cardiomegaly Degenerative spondylosis Stable suggestion of diffuse vertebral sclerosis, increased in L3. This may simply represent renal osteodystrophy. Skeletal metastases not excludable.
--- NOTE | 2016-09-30 11:31 | Nephrology Progress Note ---
Assessment/Plan Problem List: (1) ESRD (end stage renal disease) (2) Anoxic encephalopathy syndrome (3) Respiratory failure with hypoxia (4) CHF (congestive heart failure) (5) HTN (hypertension) (6) Acute pancreatitis Assessment: not better Plan HD today follow BS on TPN Vent support follow labs NPO check CT results Discussed with daughter Subjective Subjective Pt had CT abd today moves around nonverbal Objective Objective Last 24 Hour Vital Signs Date Time Temp Pulse Resp B/P Pulse Ox O2 Delivery O2 Flow Rate FiO2 09/30/16 11:19 78 135/78 09/30/16 11:18 135/82 09/30/16 10:42 94 24 30 09/30/16 08:34 89 19 30 09/30/16 08:00 98.2 95 27 135/57 100 Mechanical Ventilator 30 09/30/16 07:11 94 30 30 09/30/16 04:10 99.0 97 28 139/58 100 Mechanical Ventilator 30 09/30/16 04:00 99 09/30/16 04:00 30 09/30/16 03:12 87 21 30 09/30/16 01:24 91 22 30 09/30/16 00:34 99.0 89 23 142/58 100 Mechanical Ventilator 30 09/30/16 00:00 99.0 89 27 142/58 100 Mechanical Ventilator 30 09/30/16 00:00 96 09/30/16 00:00 30 09/29/16 23:10 89 20 30 09/29/16 21:38 81 24 30 09/29/16 20:20 99.2 93 27 124/50 100 Mechanical Ventilator 30 09/29/16 20:00 86 09/29/16 20:00 30 09/29/16 19:22 82 24 30 09/29/16 18:38 140/45 09/29/16 16:47 94 25 30 09/29/16 16:00 30 09/29/16 16:00 88 09/29/16 16:00 97.7 87 27 140/45 100 Mechanical Ventilator 30 09/29/16 14:57 96 23 30 09/29/16 12:49 91 22 30 09/29/16 12:00 98.2 80 27 112/48 100 Mechanical Ventilator 30 09/29/16 12:00 79 09/29/16 12:00 30 Intake and Output 09/29/16 09/30/16 19:00 07:00 Intake Total 1009 ml 268 ml Balance 1009 ml 268 ml Free Water 150 ml IV Total 859 ml 268 ml # Voids 2 # Bowel Movements 3 5 Laboratory Tests 09/30/16 03:45: White Blood Count 17.0H, Red Blood Count 2.66L, Hemoglobin 8.5L, Hematocrit 26.4L, Mean Corpuscular Volume 100H, Mean Corpuscular Hemoglobin 31.8H, Mean Corpuscular Hemoglobin Concent 32.0, Red Cell Distribution Width 15.7H, Platelet Count 300, Mean Platelet Volume 6.4L, Neutrophils (%) (Auto) 79.0H, Lymphocytes (%) (Auto) 7.0L, Monocytes (%) (Auto) 9.3, Eosinophils (%) (Auto) 2.8, Basophils (%) (Auto) 1.9, Sodium Level 144, Potassium Level 3.4, Chloride Level 95L, Carbon Dioxide Level 24, Anion Gap 25H, Blood Urea Nitrogen 52H, Creatinine 5.8H, Estimat Glomerular Filtration Rate 9.7, Glucose Level 112#H, Calcium Level 9.5, Total Bilirubin 0.3, Aspartate Amino Transf (AST/SGOT) 37, Alanine Aminotransferase (ALT/SGPT) 7, Alkaline Phosphatase 136H, Total Protein 6.9, Albumin 2.5L, Globulin 4.4, Albumin/Globulin Ratio 0.5L, Amylase Level 895* H, Lipase 2017H Height (Feet): 5 Height (Inches): 9.00 Weight (Pounds): 192 Cardiovascular: normal rate Respiratory/Chest: lungs clear Extremities: other - no edema CANDICE BREAUX Sep 30, 2016 11:31
--- NOTE | 2016-09-30 12:37 | Infectious Diseases Prog Note ---
Assessment/Plan Assessment/Plan antibiotics : zosyn A 1. enterobacter pneumonia /p rx 2. respiratory failure 3. renal failure 4. leucocytosis increased 5. s/p cardiac arrest 6. acute pancreatitis P 1. continue zosyn 2. stool for c.diff 3. start flagyl 4. will follow up cultures Subjective ROS Limited/Unobtainable: Yes Allergies: Coded Allergies: NIACIN (Verified Allergy, Unknown, ITCHING, 01/30/12) Objective Vital Signs Last 24 Hour Vital Signs Date Time Temp Pulse Resp B/P Pulse Ox O2 Delivery O2 Flow Rate FiO2 09/30/16 11:19 78 135/78 09/30/16 11:18 135/82 09/30/16 10:42 94 24 30 09/30/16 08:34 89 19 30 09/30/16 08:00 98.2 95 27 135/57 100 Mechanical Ventilator 30 09/30/16 07:11 94 30 30 09/30/16 04:10 99.0 97 28 139/58 100 Mechanical Ventilator 30 09/30/16 04:00 99 09/30/16 04:00 30 09/30/16 03:12 87 21 30 09/30/16 01:24 91 22 30 09/30/16 00:34 99.0 89 23 142/58 100 Mechanical Ventilator 30 09/30/16 00:00 99.0 89 27 142/58 100 Mechanical Ventilator 30 09/30/16 00:00 96 09/30/16 00:00 30 09/29/16 23:10 89 20 30 09/29/16 21:38 81 24 30 09/29/16 20:20 99.2 93 27 124/50 100 Mechanical Ventilator 30 09/29/16 20:00 86 09/29/16 20:00 30 09/29/16 19:22 82 24 30 09/29/16 18:38 140/45 09/29/16 16:47 94 25 30 09/29/16 16:00 30 09/29/16 16:00 88 09/29/16 16:00 97.7 87 27 140/45 100 Mechanical Ventilator 30 09/29/16 14:57 96 23 30 09/29/16 12:49 91 22 30 Height (Feet): 5 Height (Inches): 9.00 Weight (Pounds): 192 HEENT: status post trach Respiratory/Chest: lungs clear Cardiovascular: normal rate, regular rhythm, no gallop/murmur Abdomen: soft, non tender, other - GT Extremities: no edema, other - right subclavian Laboratory Tests Test 09/30/16 03:45 White Blood Count 17.0 K/UL (4.8-10.8) H Red Blood Count 2.66 M/UL (4.70-6.10) L Hemoglobin 8.5 G/DL (14.2-18.0) L Hematocrit 26.4 % (42.0-52.0) L Mean Corpuscular Volume 100 FL (80-99) H Mean Corpuscular Hemoglobin 31.8 PG (27.0-31.0) H Mean Corpuscular Hemoglobin Concent 32.0 G/DL (32.0-36.0) Red Cell Distribution Width 15.7 % (11.6-14.8) H Platelet Count 300 K/UL (150-450) Mean Platelet Volume 6.4 FL (6.5-10.1) L Neutrophils (%) (Auto) 79.0 % (45.0-75.0) H Lymphocytes (%) (Auto) 7.0 % (20.0-45.0) L Monocytes (%) (Auto) 9.3 % (1.0-10.0) Eosinophils (%) (Auto) 2.8 % (0.0-3.0) Basophils (%) (Auto) 1.9 % (0.0-2.0) Sodium Level 144 mEQ/L (135-145) Potassium Level 3.4 mEQ/L (3.4-4.9) Chloride Level 95 mEQ/L (98-107) L Carbon Dioxide Level 24 mEQ/L (20-30) Anion Gap 25 (5-15) H Blood Urea Nitrogen 52 mg/dL (7-23) H Creatinine 5.8 mg/dL (0.7-1.2) H Estimat Glomerular Filtration Rate 9.7 mL/min (>60) Glucose Level 112 mg/dL (74-106) #H Calcium Level 9.5 mg/dL (8.6-10.2) Total Bilirubin 0.3 mg/dL (0.0-1.2) Aspartate Amino Transf (AST/SGOT) 37 U/L (5-40) Alanine Aminotransferase (ALT/SGPT) 7 U/L (3-41) Alkaline Phosphatase 136 U/L (40-129) H Total Protein 6.9 g/dL (6.6-8.7) Albumin 2.5 g/dL (3.5-5.2) L Globulin 4.4 g/dL Albumin/Globulin Ratio 0.5 (1.0-2.7) L Amylase Level 895 U/L (10-110) *H Lipase 2017 U/L (< 60) H LEWIS ADAMS Sep 30, 2016 12:37
[2016-09-30] MEDS: metroNIDAZOLE 500mg tab ORAL SCH ×2 (14:08→22:20)
--- NOTE | 2016-09-30 15:52 | Internal Med Progress Note ---
Subjective Date of Service: Sep 30, 2016 Physician Name ClancyFiliberto calle Attending Physician Harrison Delatorre Current Medications Medications (Trade) Dose Ordered Sig/Mark Route PRN Reason Start Time Stop Time Status Last Admin Dose Admin Acetaminophen (Tylenol) 650 mg Q4H PRN ORAL Mild Pain (Pain Scale 1-3) 09/26/16 11:00 10/26/16 10:59 09/27/16 09:03 Amlodipine Besylate (Norvasc) 10 mg DAILY GT 09/27/16 09:00 10/27/16 08:59 09/30/16 11:19 Bethanechol Chloride (Urecholine) 10 mg THREE TIMES A DAY ORAL 09/26/16 13:00 10/26/16 12:59 09/30/16 13:00 Chlorhexidine Gluconate (Lakshmi-Hex 2%) 1 applic Q24H TOPIC 09/26/16 21:00 10/26/16 20:59 09/29/16 20:25 Dextrose (D10w) 1,000 ml @ 0 mls/hr Q24H PRN IV PN interrupted or unavailable 09/28/16 21:00 10/28/16 20:59 Dextrose STAT PRN IV Hypoglycemia 09/28/16 12:00 10/28/16 11:59 Epoetin Kiko 51710 units 10,000 units THU-THU-THU SUBQ 09/29/16 21:00 10/29/16 20:59 09/29/16 21:27 Fat Emulsion Intravenous/Amino Acids/ Electrolytes/ Dextrose (Intralipids/Tpn) 1,608 ml @ 67 mls/hr Q24H IV 09/29/16 21:00 09/30/16 20:59 09/29/16 20:22 Fat Emulsion Intravenous/Amino Acids/ Electrolytes/ Dextrose (Intralipids/Tpn) 1,608 ml @ 67 mls/hr Q24H IV 09/30/16 21:00 10/30/16 20:59 Heparin Sodium (Porcine) (Heparin 5000 units/ml) 5,000 units EVERY 12 HOURS SUBQ 09/26/16 21:00 10/26/16 20:59 09/30/16 11:23 Heparin Sodium (Porcine) 2000 unit 2,000 unit ONCE PRN IV FOR HD 09/30/16 06:00 09/30/16 23:59 Insulin Aspart (NovoLOG) EVERY 6 HOURS SUBQ 09/26/16 12:00 10/26/16 11:59 09/29/16 23:56 Lansoprazole (Prevacid) 30 mg DAILY GT 09/27/16 09:00 10/27/16 08:59 09/30/16 11:19 Metoclopramide HCl (Reglan) 5 mg Q6HR NG 09/26/16 12:00 10/26/16 11:59 09/30/16 11:30 Metronidazole (Flagyl) 500 mg EVERY 8 HOURS ORAL 09/30/16 14:00 10/07/16 13:59 09/30/16 14:08 Minoxidil (Loniten) 15 mg BID GT 09/26/16 18:00 10/26/16 17:59 09/30/16 11:18 Phenytoin (Dilantin) 300 mg Q12HR GT 09/26/16 21:00 10/26/16 20:59 09/30/16 11:10 Phenytoin/Sodium Chloride (Dilantin/Sodium Chloride) 120 ml @ 120 mls/hr POSTHD IVPB 09/26/16 21:00 10/26/16 20:59 09/28/16 00:21 Phytonadione (Vitamin K) 10 mg QWEEK SUBQ 09/28/16 21:00 10/28/16 20:59 09/28/16 21:48 Piperacillin Sod/ Tazobactam Sod/ Dextrose (Zosyn/D5W) 55 ml @ 110 mls/hr Q8HR IVPB 09/28/16 14:00 10/03/16 13:59 09/30/16 14:09 Polyethylene Glycol (Miralax) 17 gm DAILYPRN PRN ORAL Constipation 09/26/16 23:00 10/26/16 22:59 Valproic Acid (Depakene) 1,000 mg POSTHD GT 09/26/16 11:00 10/26/16 10:59 09/28/16 17:09 Valproic Acid 1500 mg 1,500 mg Q12HR GT 09/26/16 21:00 10/26/16 20:59 09/30/16 11:09 Allergies: Coded Allergies: NIACIN (Verified Allergy, Unknown, ITCHING, 01/30/12) ROS Limited/Unobtainable: Yes Subjective 71 YO M admitted with volume overload and respiratory failure. S/P cardiopulmonary arrest. WILD. Intubated. Now acute pancreatitis. Cover for Int Med-Dr V[place]. Objective Last Vital Signs Date Time Temp Pulse Resp B/P Pulse Ox O2 Delivery O2 Flow Rate FiO2 09/30/16 14:43 90 18 30 09/30/16 12:00 98.6 125/56 100 Mechanical Ventilator 09/28/16 04:00 4.0 Laboratory Tests Test 09/30/16 03:45 White Blood Count 17.0 K/UL (4.8-10.8) H Red Blood Count 2.66 M/UL (4.70-6.10) L Hemoglobin 8.5 G/DL (14.2-18.0) L Hematocrit 26.4 % (42.0-52.0) L Mean Corpuscular Volume 100 FL (80-99) H Mean Corpuscular Hemoglobin 31.8 PG (27.0-31.0) H Mean Corpuscular Hemoglobin Concent 32.0 G/DL (32.0-36.0) Red Cell Distribution Width 15.7 % (11.6-14.8) H Platelet Count 300 K/UL (150-450) Mean Platelet Volume 6.4 FL (6.5-10.1) L Neutrophils (%) (Auto) 79.0 % (45.0-75.0) H Lymphocytes (%) (Auto) 7.0 % (20.0-45.0) L Monocytes (%) (Auto) 9.3 % (1.0-10.0) Eosinophils (%) (Auto) 2.8 % (0.0-3.0) Basophils (%) (Auto) 1.9 % (0.0-2.0) Sodium Level 144 mEQ/L (135-145) Potassium Level 3.4 mEQ/L (3.4-4.9) Chloride Level 95 mEQ/L (98-107) L Carbon Dioxide Level 24 mEQ/L (20-30) Anion Gap 25 (5-15) H Blood Urea Nitrogen 52 mg/dL (7-23) H Creatinine 5.8 mg/dL (0.7-1.2) H Estimat Glomerular Filtration Rate 9.7 mL/min (>60) Glucose Level 112 mg/dL (74-106) #H Calcium Level 9.5 mg/dL (8.6-10.2) Total Bilirubin 0.3 mg/dL (0.0-1.2) Aspartate Amino Transf (AST/SGOT) 37 U/L (5-40) Alanine Aminotransferase (ALT/SGPT) 7 U/L (3-41) Alkaline Phosphatase 136 U/L (40-129) H Total Protein 6.9 g/dL (6.6-8.7) Albumin 2.5 g/dL (3.5-5.2) L Globulin 4.4 g/dL Albumin/Globulin Ratio 0.5 (1.0-2.7) L Amylase Level 895 U/L (10-110) *H Lipase 2017 U/L (< 60) H Intake and Output 09/29/16 09/30/16 19:00 07:00 Intake Total 1009 ml 268 ml Balance 1009 ml 268 ml Free Water 150 ml IV Total 859 ml 268 ml # Voids 2 # Bowel Movements 3 5 Objective General Appearance: WD/WN, lethargic EENT: PERRL/EOMI, normal ENT inspection, TMs normal Neck: non-tender, normal alignment, supple Cardiovascular: normal peripheral pulses, normal rate, regular rhythm, no gallop/murmur, no JVD Respiratory/Chest: Mech vent; chest wall non-tender, crackles/rales, rhonchi - bilaterally, expiratory wheezing Abdomen: normal bowel sounds, non tender, soft, no organomegaly Skin: normal pigmentation, warm/dry Assessment/Plan Problem List: (1) HTN (hypertension) Assessment & Plan: Cont amlodipine. (2) Hyperkalemia (3) Respiratory failure with hypoxia Assessment & Plan: Intubated and sedated. S/P Tracheostomy 09/24/16. (4) ESRD (end stage renal disease) Assessment & Plan: See nephrology note. Next Hemodialysis today, 09/30/16 per nephrology (5) CHF (congestive heart failure) (6) Diabetes mellitus Assessment & Plan: Cont novolog sliding scale. 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 (9) Anoxic encephalopathy syndrome Assessment & Plan: See neruo note. (10) Enterobacter sepsis (11) Pneumonia Assessment & Plan: Enterobacter. Cont zosyn and flagyl per ID (12) Anemia (13) Dysphagia Assessment & Plan: S/P PEG 09/23/16. (14) Cholecystitis, acute Assessment & Plan: See Surgery note. Not surgical candidate at this time. Continue zosyn and flagyl per ID (15) Pancreatitis, acute Assessment & Plan: Improving amylase and lipase. See GI note. Await CT result. Hold tube feeds. Pancrelipase. (16) Fever Assessment & Plan: See ID note. Status: not improved Assessment/Plan Discharge to [facility] when accepted-see case management note. FILIBERTO CLANCY Sep 30, 2016 15:52
[2016-09-30] MEDS ORDERED: LORazepam Inj 2mg/ml 1ml IV ONE (16:50)
[2016-09-30] MEDS ORDERED: LORazepam Inj 2mg/ml 1ml IVP PRN ×2 (17:10)
--- NOTE | 2016-09-30 20:10 | Cardiology Progress Note ---
Assessment/Plan Problem List: (1) Pneumonia (2) Enterobacter sepsis (3) CHF (congestive heart failure) (4) ESRD (end stage renal disease) (5) Anoxic encephalopathy syndrome (6) Pancreatitis, acute Status: stable, unchanged Status Narrative Pt w/ pancreatitis, w/ CT today showing no pseudocyst or abscess. He remains NPO// no g tube feeds. On TPN Cardiac status stable. Assessment/Plan Continue supportive care, iv antibiotics, vent support, hemodialysis, TPN pending resolution of pancreatitis. Enzymes slowly decreasing. ID following - flagyl started for possible C diff . Stool sent for C diff toxin - results pending. Subjective ROS Limited/Unobtainable: Yes Subjective Pt sedated, seen p HD today. Family reports pt w/ diarrhea. Objective Last 24 Hour Vital Signs Date Time Temp Pulse Resp B/P Pulse Ox O2 Delivery O2 Flow Rate FiO2 09/30/16 19:18 89 25 30 09/30/16 18:37 Mechanical Ventilator 4.0 30 09/30/16 18:00 125/58 09/30/16 16:30 92 18 30 09/30/16 16:00 30 09/30/16 16:00 89 09/30/16 16:00 98.6 87 22 124/59 100 Mechanical Ventilator 30 09/30/16 15:30 Mechanical Ventilator 4.0 30 09/30/16 14:43 90 18 30 09/30/16 13:04 91 19 30 09/30/16 12:00 30 09/30/16 12:00 98.6 94 17 125/56 100 Mechanical Ventilator 30 09/30/16 12:00 94 09/30/16 11:19 78 135/78 09/30/16 11:18 135/82 09/30/16 10:42 94 24 30 09/30/16 08:34 89 19 30 09/30/16 08:00 98.2 95 27 135/57 100 Mechanical Ventilator 30 09/30/16 08:00 95 09/30/16 08:00 30 09/30/16 07:11 94 30 30 09/30/16 04:10 99.0 97 28 139/58 100 Mechanical Ventilator 30 09/30/16 04:00 99 09/30/16 04:00 30 09/30/16 03:12 87 21 30 09/30/16 01:24 91 22 30 09/30/16 00:34 99.0 89 23 142/58 100 Mechanical Ventilator 30 09/30/16 00:00 99.0 89 27 142/58 100 Mechanical Ventilator 30 09/30/16 00:00 96 09/30/16 00:00 30 09/29/16 23:10 89 20 30 09/29/16 21:38 81 24 30 09/29/16 20:20 99.2 93 27 124/50 100 Mechanical Ventilator 30 General Appearance: lethargic, on vent Neck: supple, no JVD Rhythm: NSR Cardiovascular: normal rate, no gallop/murmur Respiratory/Chest: lungs clear - clear anteriorly Abdomen: non tender, hypoactive bowel sounds, distended Extremities: no swelling Intake and Output 09/29/16 09/30/16 19:00 07:00 Intake Total 1009 ml 268 ml Balance 1009 ml 268 ml Free Water 150 ml IV Total 859 ml 268 ml # Voids 2 # Bowel Movements 3 5 Laboratory Tests Test 09/30/16 03:45 White Blood Count 17.0 K/UL (4.8-10.8) H Red Blood Count 2.66 M/UL (4.70-6.10) L Hemoglobin 8.5 G/DL (14.2-18.0) L Hematocrit 26.4 % (42.0-52.0) L Mean Corpuscular Volume 100 FL (80-99) H Mean Corpuscular Hemoglobin 31.8 PG (27.0-31.0) H Mean Corpuscular Hemoglobin Concent 32.0 G/DL (32.0-36.0) Red Cell Distribution Width 15.7 % (11.6-14.8) H Platelet Count 300 K/UL (150-450) Mean Platelet Volume 6.4 FL (6.5-10.1) L Neutrophils (%) (Auto) 79.0 % (45.0-75.0) H Lymphocytes (%) (Auto) 7.0 % (20.0-45.0) L Monocytes (%) (Auto) 9.3 % (1.0-10.0) Eosinophils (%) (Auto) 2.8 % (0.0-3.0) Basophils (%) (Auto) 1.9 % (0.0-2.0) Sodium Level 144 mEQ/L (135-145) Potassium Level 3.4 mEQ/L (3.4-4.9) Chloride Level 95 mEQ/L (98-107) L Carbon Dioxide Level 24 mEQ/L (20-30) Anion Gap 25 (5-15) H Blood Urea Nitrogen 52 mg/dL (7-23) H Creatinine 5.8 mg/dL (0.7-1.2) H Estimat Glomerular Filtration Rate 9.7 mL/min (>60) Glucose Level 112 mg/dL (74-106) #H Calcium Level 9.5 mg/dL (8.6-10.2) Total Bilirubin 0.3 mg/dL (0.0-1.2) Aspartate Amino Transf (AST/SGOT) 37 U/L (5-40) Alanine Aminotransferase (ALT/SGPT) 7 U/L (3-41) Alkaline Phosphatase 136 U/L (40-129) H Total Protein 6.9 g/dL (6.6-8.7) Albumin 2.5 g/dL (3.5-5.2) L Globulin 4.4 g/dL Albumin/Globulin Ratio 0.5 (1.0-2.7) L Amylase Level 895 U/L (10-110) *H Lipase 2017 U/L (< 60) H ANGEL MARCIAL Sep 30, 2016 20:10
[2016-09-30] MEDS ORDERED: Phenytoin 250mg/5ml vial ONE (20:24)
[2016-09-30] MEDS: Phenytoin 500 MG in NS 110 ML IVPB SCH (20:35)
[2016-09-30] MEDS ORDERED: FAT EMULSION 20% IV SCH (21:00)
[2016-09-30] MEDS ORDERED: TPN IV SCH (21:00)
--- NOTE | 2016-09-30 21:53 | General Progress Note ---
Assessment/Plan Assessment/Plan Assessment - possible DM gastroparesis - Acute pancreatitis, presumed due to gallstone - Leukocytosis - encephalopathy - resp failure - DM - renal failure - Anemia, presumed due to renal failure Recommendations - PPI - Reglan / bethanecol - continue TPN - continue to follow amylase and lipase - abx per ID Subjective Allergies: Coded Allergies: NIACIN (Verified Allergy, Unknown, ITCHING, 01/30/12) Subjective uneventful day had repeat CT today discussed with radiologist still with CT changes consistent with pancreatitis but improved and no psudocyst or abscess Objective Last 24 Hour Vital Signs Date Time Temp Pulse Resp B/P Pulse Ox O2 Delivery O2 Flow Rate FiO2 09/30/16 21:32 91 22 30 09/30/16 20:00 99.8 93 21 109/50 99 Trach Collar 09/30/16 19:18 89 25 30 09/30/16 18:37 Mechanical Ventilator 4.0 30 09/30/16 18:00 125/58 09/30/16 16:30 92 18 30 09/30/16 16:00 30 09/30/16 16:00 89 09/30/16 16:00 98.6 87 22 124/59 100 Mechanical Ventilator 30 09/30/16 15:30 Mechanical Ventilator 4.0 30 09/30/16 14:43 90 18 30 09/30/16 13:04 91 19 30 09/30/16 12:00 30 09/30/16 12:00 98.6 94 17 125/56 100 Mechanical Ventilator 30 09/30/16 12:00 94 09/30/16 11:19 78 135/78 09/30/16 11:18 135/82 09/30/16 10:42 94 24 30 09/30/16 08:34 89 19 30 09/30/16 08:00 98.2 95 27 135/57 100 Mechanical Ventilator 30 09/30/16 08:00 95 09/30/16 08:00 30 09/30/16 07:11 94 30 30 09/30/16 04:10 99.0 97 28 139/58 100 Mechanical Ventilator 30 09/30/16 04:00 99 09/30/16 04:00 30 09/30/16 03:12 87 21 30 09/30/16 01:24 91 22 30 09/30/16 00:34 99.0 89 23 142/58 100 Mechanical Ventilator 30 09/30/16 00:00 99.0 89 27 142/58 100 Mechanical Ventilator 30 09/30/16 00:00 96 09/30/16 00:00 30 09/29/16 23:10 89 20 30 Intake and Output 09/29/16 09/30/16 19:00 07:00 Intake Total 1009 ml 268 ml Balance 1009 ml 268 ml Free Water 150 ml IV Total 859 ml 268 ml # Voids 2 # Bowel Movements 3 5 Laboratory Tests 09/30/16 03:45: White Blood Count 17.0H, Red Blood Count 2.66L, Hemoglobin 8.5L, Hematocrit 26.4L, Mean Corpuscular Volume 100H, Mean Corpuscular Hemoglobin 31.8H, Mean Corpuscular Hemoglobin Concent 32.0, Red Cell Distribution Width 15.7H, Platelet Count 300, Mean Platelet Volume 6.4L, Neutrophils (%) (Auto) 79.0H, Lymphocytes (%) (Auto) 7.0L, Monocytes (%) (Auto) 9.3, Eosinophils (%) (Auto) 2.8, Basophils (%) (Auto) 1.9, Sodium Level 144, Potassium Level 3.4, Chloride Level 95L, Carbon Dioxide Level 24, Anion Gap 25H, Blood Urea Nitrogen 52H, Creatinine 5.8H, Estimat Glomerular Filtration Rate 9.7, Glucose Level 112#H, Calcium Level 9.5, Total Bilirubin 0.3, Aspartate Amino Transf (AST/SGOT) 37, Alanine Aminotransferase (ALT/SGPT) 7, Alkaline Phosphatase 136H, Total Protein 6.9, Albumin 2.5L, Globulin 4.4, Albumin/Globulin Ratio 0.5L, Amylase Level 895* H, Lipase 2017H Height (Feet): 5 Height (Inches): 9.00 Weight (Pounds): 192 Objective Intubated and unresponsive NCAT, (+)trach supple Coarse BS RR soft ND abdomen, (+) umbilical hernia w/o change, (+) GT no edema unresponsive ANNE CURRAN Sep 30, 2016 21:53
[2016-09-30] MEDS: Dyna-Hex 2% Top Sol 8oz TOPIC SCH (22:05)
[2016-10-01] VITALS: BP 107/63
[2016-10-01] MEDS: Metoclopramide 10mg/10ml Liq NG SCH ×4 (00:15→17:03)
[2016-10-01] MEDS: NovoLOG Insulin Flexpen SUBQ SCH ×4 (00:24→17:02)
[2016-10-01 03:51] VITALS: BP 107/52
[2016-10-01] MEDS: Piperacillin/Tazobactam 2.25 GM in D5W 55 ML IVPB SCH ×3 (05:53→23:01)
[2016-10-01] MEDS: metroNIDAZOLE 500mg tab ORAL SCH ×3 (05:53→23:01)
[2016-10-01 06:06] LABS: MEAN CORPUSCULAR HGB CONC 32.5 G/DL (32.0-36.0); MEAN CORPUSCULAR VOLUME 98 FL (80-99); MEAN PLATELET VOLUME 6.4 FL (6.5-10.1); PLATELET COUNT 255 K/UL (150-450); RED BLOOD COUNT 2.43 M/UL (4.70-6.10); RED CELL DISTRIBUTION WIDTH 15.5 % (11.6-14.8); WHITE BLOOD COUNT 15.7 K/UL (4.8-10.8)
[2016-10-01 06:09] LABS: ALBUMIN/GLOBULIN RATIO 0.5 (1.0-2.7); ANION GAP 21 (5-15); CALCIUM 8.9 mg/dL (8.6-10.2); CARBON DIOXIDE 27 mEQ/L (20-30); CHLORIDE 94 mEQ/L (98-107); CREATININE 4.5 mg/dL (0.7-1.2); HEMOLYSIS 8; MAGNESIUM 1.9 mg/dL (1.7-2.5); PHOSPHORUS 5.3 mg/dL (2.5-4.8); POTASSIUM 3.2 mEQ/L (3.4-4.9); SODIUM 142 mEQ/L (135-145); TOTAL PROTEIN 6.2 g/dL (6.6-8.7)
[2016-10-01 06:24] LABS: ALANINE AMINOTRANSFERASE 5 U/L (3-41); ASPARTATE AMINO TRANSFERASE 52 U/L (5-40)
[2016-10-01 06:49] LABS: AMYLASE 571 U/L (10-110); LIPASE 917 U/L (< 60)
[2016-10-01 08:00] VITALS: BP 140/54
[2016-10-01] MEDS: Valproic Acid 250mg/5ml Liquid GT SCH ×2 (08:13→21:29)
[2016-10-01] MEDS: Phenytoin Susp 100mg/4ml GT SCH ×2 (08:13→21:23)
[2016-10-01] MEDS: Bethanechol 10mg Tab ORAL SCH ×3 (08:14→17:03)
[2016-10-01] MEDS: Minoxidil 10mg tab GT SCH ×2 (08:14→17:03)
[2016-10-01] MEDS: Heparin 5000 units/ml inj SUBQ SCH ×2 (08:17→21:30)
[2016-10-01 09:29] LABS: BAND NEUTROPHILS % (MANUAL) 0 % (0-8); BASOPHILS % (MANUAL) 0 % (0-2); EOSINOPHILS % (MANUAL) 2 % (0-3); LYMPHOCYTES % (MANUAL) 8 % (20-45); NEUTROPHILS % (MANUAL) 80 % (45-75); PLATELET ESTIMATE ADEQUATE; PLATELET MORPHOLOGY NORMAL; TOTAL CELLS COUNTED 100
[2016-10-01 09:30] LABS: ANISOCYTOSIS 1+; HYPOCHROMASIA 1+
--- NOTE | 2016-10-01 11:24 | Infectious Diseases Prog Note ---
Assessment/Plan Assessment/Plan antibiotics : zosyn, flagyl A 1. enterobacter pneumonia /p rx 2. respiratory failure 3. renal failure 4. leucocytosis improving 5. s/p cardiac arrest 6. acute pancreatitis P 1. continue zosyn, flagyl 2. will follow up cultures Subjective ROS Limited/Unobtainable: Yes Allergies: Coded Allergies: NIACIN (Verified Allergy, Unknown, ITCHING, 01/30/12) Objective Vital Signs Last 24 Hour Vital Signs Date Time Temp Pulse Resp B/P Pulse Ox O2 Delivery O2 Flow Rate FiO2 10/01/16 09:12 87 14 30 10/01/16 08:14 143/53 10/01/16 08:14 92 143/53 10/01/16 08:00 30 10/01/16 08:00 89 10/01/16 08:00 99.0 89 21 140/54 99 Mechanical Ventilator 30 10/01/16 06:57 91 22 30 10/01/16 06:30 Mechanical Ventilator 30 10/01/16 05:30 85 18 30 10/01/16 04:00 30 10/01/16 03:54 89 10/01/16 03:51 99.7 93 25 107/52 100 Trach Collar 10/01/16 03:44 89 29 30 10/01/16 01:47 81 13 30 10/01/16 00:30 Mechanical Ventilator 30 10/01/16 00:00 99.1 90 20 107/63 100 Trach Collar 10/01/16 00:00 30 09/30/16 23:27 80 21 30 09/30/16 23:26 84 09/30/16 21:32 91 22 30 09/30/16 20:30 Mechanical Ventilator 30 09/30/16 20:00 30 09/30/16 20:00 99.8 93 21 109/50 99 Trach Collar 09/30/16 19:18 89 25 30 09/30/16 19:16 101 09/30/16 18:37 Mechanical Ventilator 4.0 30 09/30/16 18:00 125/58 09/30/16 16:30 92 18 30 09/30/16 16:00 30 09/30/16 16:00 89 09/30/16 16:00 98.6 87 22 124/59 100 Mechanical Ventilator 30 09/30/16 15:30 Mechanical Ventilator 4.0 30 09/30/16 14:43 90 18 30 09/30/16 13:04 91 19 30 09/30/16 12:00 30 09/30/16 12:00 98.6 94 17 125/56 100 Mechanical Ventilator 30 09/30/16 12:00 94 Height (Feet): 5 Height (Inches): 9.00 Weight (Pounds): 186 HEENT: status post trach Respiratory/Chest: rhonchi - bilaterally Cardiovascular: normal rate, regular rhythm, no gallop/murmur Abdomen: soft, non tender, other - GT Extremities: no edema, other - right subclavian Laboratory Tests Test 10/01/16 04:20 White Blood Count 15.7 K/UL (4.8-10.8) H Red Blood Count 2.43 M/UL (4.70-6.10) L Hemoglobin 7.8 G/DL (14.2-18.0) L Hematocrit 23.9 % (42.0-52.0) L Mean Corpuscular Volume 98 FL (80-99) Mean Corpuscular Hemoglobin 32.0 PG (27.0-31.0) H Mean Corpuscular Hemoglobin Concent 32.5 G/DL (32.0-36.0) Red Cell Distribution Width 15.5 % (11.6-14.8) H Platelet Count 255 K/UL (150-450) Mean Platelet Volume 6.4 FL (6.5-10.1) L Neutrophils (%) (Auto) % (45.0-75.0) Lymphocytes (%) (Auto) % (20.0-45.0) Monocytes (%) (Auto) % (1.0-10.0) Eosinophils (%) (Auto) % (0.0-3.0) Basophils (%) (Auto) % (0.0-2.0) Differential Total Cells Counted 100 Neutrophils % (Manual) 80 % (45-75) H Lymphocytes % (Manual) 8 % (20-45) L Monocytes % (Manual) 10 % (1-10) Eosinophils % (Manual) 2 % (0-3) Basophils % (Manual) 0 % (0-2) Band Neutrophils 0 % (0-8) Platelet Estimate Adequate Platelet Morphology Normal Hypochromasia 1+ Anisocytosis 1+ Sodium Level 142 mEQ/L (135-145) Potassium Level 3.2 mEQ/L (3.4-4.9) L Chloride Level 94 mEQ/L (98-107) L Carbon Dioxide Level 27 mEQ/L (20-30) Anion Gap 21 (5-15) H Blood Urea Nitrogen 39 mg/dL (7-23) H Creatinine 4.5 mg/dL (0.7-1.2) H Estimat Glomerular Filtration Rate 13.0 mL/min (>60) Glucose Level 179 mg/dL (74-106) H Calcium Level 8.9 mg/dL (8.6-10.2) Phosphorus Level 5.3 mg/dL (2.5-4.8) H Magnesium Level 1.9 mg/dL (1.7-2.5) Total Bilirubin < 0.2 mg/dL (0.0-1.2) Aspartate Amino Transf (AST/SGOT) 52 U/L (5-40) H Alanine Aminotransferase (ALT/SGPT) 5 U/L (3-41) Alkaline Phosphatase 119 U/L (40-129) Total Protein 6.2 g/dL (6.6-8.7) L Albumin 2.2 g/dL (3.5-5.2) L Globulin 4.0 g/dL Albumin/Globulin Ratio 0.5 (1.0-2.7) L Amylase Level 571 U/L (10-110) *H Lipase 917 U/L (< 60) H LEWIS ADAMS Oct 01, 2016 11:24
[2016-10-01 12:00] VITALS: BP 112/42
[2016-10-01 12:06] LABS: OTHERS PATHOLOGIST COMMENT
--- NOTE | 2016-10-01 12:39 | Pulmonology Progress Note ---
Assessment/Plan Assessment/Plan 1. Status post cardiac arrest. 2. Renal failure with hyperkalemia. 3. Respiratory failure. 4. Anoxic encephalopathy. 5. Status epilepticus 6. Coronary artery disease. 7. History of cardiomyopathy. 8. Diabetes. 9. Hypertension. 10 Pancreatitis, enzymes improving no weaning attempts trach and vent dependent cont TPN [employer] [facility] [place] dixon [place] Subjective ROS Limited/Unobtainable: Yes Constitutional: Denies: fever Allergies: Coded Allergies: NIACIN (Verified Allergy, Unknown, ITCHING, 01/30/12) Objective Last 24 Hour Vital Signs Date Time Temp Pulse Resp B/P Pulse Ox O2 Delivery O2 Flow Rate FiO2 10/01/16 11:05 89 16 30 10/01/16 09:12 87 14 30 10/01/16 08:14 143/53 10/01/16 08:14 92 143/53 10/01/16 08:00 30 10/01/16 08:00 89 10/01/16 08:00 99.0 89 21 140/54 99 Mechanical Ventilator 30 10/01/16 06:57 91 22 30 10/01/16 06:30 Mechanical Ventilator 30 10/01/16 05:30 85 18 30 10/01/16 04:00 30 10/01/16 03:54 89 10/01/16 03:51 99.7 93 25 107/52 100 Trach Collar 10/01/16 03:44 89 29 30 10/01/16 01:47 81 13 30 10/01/16 00:30 Mechanical Ventilator 30 10/01/16 00:00 99.1 90 20 107/63 100 Trach Collar 10/01/16 00:00 30 09/30/16 23:27 80 21 30 09/30/16 23:26 84 09/30/16 21:32 91 22 30 09/30/16 20:30 Mechanical Ventilator 30 09/30/16 20:00 30 09/30/16 20:00 99.8 93 21 109/50 99 Trach Collar 09/30/16 19:18 89 25 30 09/30/16 19:16 101 09/30/16 18:37 Mechanical Ventilator 4.0 30 09/30/16 18:00 125/58 09/30/16 16:30 92 18 30 09/30/16 16:00 30 09/30/16 16:00 89 09/30/16 16:00 98.6 87 22 124/59 100 Mechanical Ventilator 30 09/30/16 15:30 Mechanical Ventilator 4.0 30 09/30/16 14:43 90 18 30 09/30/16 13:04 91 19 30 Intake and Output 09/30/16 10/01/16 19:00 07:00 Intake Total 1041 ml 670 ml Output Total 3500 ml Balance -2459 ml 670 ml Free Water 60 ml IV Total 981 ml 670 ml Hemodialysis UF 3500 ml # Bowel Movements 11 7 General Appearance: no acute distress - agitated Respiratory/Chest: rhonchi Cardiovascular: normal rate Microbiology Date/Time Source Procedure Growth Status 09/30/16 06:30 Stool Clostridium difficile Toxin Assay - Final Complete Laboratory Tests 10/01/16 04:20: White Blood Count 15.7H, Red Blood Count 2.43L, Hemoglobin 7.8L, Hematocrit 23.9L, Mean Corpuscular Volume 98, Mean Corpuscular Hemoglobin 32.0H, Mean Corpuscular Hemoglobin Concent 32.5, Red Cell Distribution Width 15.5H, Platelet Count 255, Mean Platelet Volume 6.4L, Neutrophils (%) (Auto) , Lymphocytes (%) (Auto) , Monocytes (%) (Auto) , Eosinophils (%) (Auto) , Basophils (%) (Auto) , Differential Total Cells Counted 100, Neutrophils % ( Manual) 80H, Lymphocytes % (Manual) 8L, Monocytes % (Manual) 10, Eosinophils % ( Manual) 2, Basophils % (Manual) 0, Band Neutrophils 0, Other Cell Type Pathologist comment, Platelet Estimate Adequate, Platelet Morphology Normal, Hypochromasia 1+, Anisocytosis 1+, Sodium Level 142, Potassium Level 3.2L, Chloride Level 94L, Carbon Dioxide Level 27, Anion Gap 21H, Blood Urea Nitrogen 39H, Creatinine 4.5H, Estimat Glomerular Filtration Rate 13.0, Glucose Level 179H, Calcium Level 8.9, Phosphorus Level 5.3H, Magnesium Level 1.9, Total Bilirubin < 0.2, Aspartate Amino Transf (AST/SGOT) 52H, Alanine Aminotransferase (ALT/SGPT) 5, Alkaline Phosphatase 119, Total Protein 6.2L, Albumin 2.2L, Globulin 4.0, Albumin/Globulin Ratio 0.5L, Amylase Level 571*H, Lipase 917H Current Medications Medications (Trade) Dose Ordered Sig/Mark Route PRN Reason Start Time Stop Time Status Last Admin Dose Admin Acetaminophen (Tylenol) 650 mg Q4H PRN ORAL Mild Pain (Pain Scale 1-3) 09/26/16 11:00 10/26/16 10:59 09/27/16 09:03 Amlodipine Besylate (Norvasc) 10 mg DAILY GT 09/27/16 09:00 10/27/16 08:59 10/01/16 08:14 Bethanechol Chloride (Urecholine) 10 mg THREE TIMES A DAY ORAL 09/26/16 13:00 10/26/16 12:59 10/01/16 08:14 Chlorhexidine Gluconate (Lakshmi-Hex 2%) 1 applic Q24H TOPIC 09/26/16 21:00 10/26/16 20:59 09/30/16 22:05 Dextrose (D10w) 1,000 ml @ 0 mls/hr Q24H PRN IV PN interrupted or unavailable 09/28/16 21:00 10/28/16 20:59 Dextrose STAT PRN IV Hypoglycemia 09/28/16 12:00 10/28/16 11:59 Epoetin Kiko 41163 units 10,000 units [id number] SUBQ 09/29/16 21:00 10/29/16 20:59 09/29/16 21:27 Fat Emulsion Intravenous/Amino Acids/ Electrolytes/ Dextrose (Intralipids/Tpn) 1,608 ml @ 67 mls/hr Q24H IV 09/30/16 21:00 10/01/16 20:59 09/30/16 21:01 Fat Emulsion Intravenous/Amino Acids/ Electrolytes/ Dextrose (Intralipids/Tpn) 1,608 ml @ 67 mls/hr Q24H IV 10/01/16 21:00 10/31/16 20:59 Heparin Sodium (Porcine) (Heparin 5000 units/ml) 5,000 units EVERY 12 HOURS SUBQ 09/26/16 21:00 10/26/16 20:59 10/01/16 08:17 Insulin Aspart (NovoLOG) EVERY 6 HOURS SUBQ 09/26/16 12:00 10/26/16 11:59 10/01/16 06:11 Lansoprazole (Prevacid) 30 mg DAILY GT 09/27/16 09:00 10/27/16 08:59 09/30/16 11:19 Metoclopramide HCl (Reglan) 5 mg Q6HR NG 09/26/16 12:00 10/26/16 11:59 10/01/16 05:53 Metronidazole 500 mg 500 mg EVERY 8 HOURS ORAL 09/30/16 14:00 10/07/16 13:59 10/01/16 05:53 Minoxidil (Loniten) 15 mg BID GT 09/26/16 18:00 10/26/16 17:59 10/01/16 08:14 Phenytoin (Dilantin) 300 mg Q12HR GT 09/26/16 21:00 10/26/16 20:59 10/01/16 08:13 Phenytoin/Sodium Chloride (Dilantin/Sodium Chloride) 120 ml @ 120 mls/hr POSTHD IVPB 09/26/16 21:00 10/26/16 20:59 09/30/16 20:35 Phytonadione (Vitamin K) 10 mg QWEEK SUBQ 09/28/16 21:00 10/28/16 20:59 09/28/16 21:48 Piperacillin Sod/ Tazobactam Sod/ Dextrose (Zosyn/D5W) 55 ml @ 110 mls/hr Q8HR IVPB 09/28/16 14:00 10/03/16 13:59 10/01/16 05:53 Polyethylene Glycol (Miralax) 17 gm DAILYPRN PRN ORAL Constipation 09/26/16 23:00 10/26/16 22:59 Valproic Acid (Depakene) 1,000 mg POSTHD GT 09/26/16 11:00 10/26/16 10:59 09/28/16 17:09 Valproic Acid 1500 mg 1,500 mg Q12HR GT 09/26/16 21:00 10/26/16 20:59 10/01/16 08:13 CHLOE ESQUIVEL Oct 01, 2016 12:39
--- NOTE | 2016-10-01 12:41 | Internal Med Progress Note ---
Subjective Date of Service: Oct 01, 2016 Physician Name Filiberto Clancy Attending Physician Harrison Delatorre Current Medications Medications (Trade) Dose Ordered Sig/Mark Route PRN Reason Start Time Stop Time Status Last Admin Dose Admin Acetaminophen (Tylenol) 650 mg Q4H PRN ORAL Mild Pain (Pain Scale 1-3) 09/26/16 11:00 10/26/16 10:59 09/27/16 09:03 Amlodipine Besylate (Norvasc) 10 mg DAILY GT 09/27/16 09:00 10/27/16 08:59 10/01/16 08:14 Bethanechol Chloride (Urecholine) 10 mg THREE TIMES A DAY ORAL 09/26/16 13:00 10/26/16 12:59 10/01/16 08:14 Chlorhexidine Gluconate (Lakshmi-Hex 2%) 1 applic Q24H TOPIC 09/26/16 21:00 10/26/16 20:59 09/30/16 22:05 Dextrose (D10w) 1,000 ml @ 0 mls/hr Q24H PRN IV PN interrupted or unavailable 09/28/16 21:00 10/28/16 20:59 Dextrose STAT PRN IV Hypoglycemia 09/28/16 12:00 10/28/16 11:59 Epoetin Kiko 17989 units 10,000 units THU-THU-THU SUBQ 09/29/16 21:00 10/29/16 20:59 09/29/16 21:27 Fat Emulsion Intravenous/Amino Acids/ Electrolytes/ Dextrose (Intralipids/Tpn) 1,608 ml @ 67 mls/hr Q24H IV 09/30/16 21:00 10/01/16 20:59 09/30/16 21:01 Fat Emulsion Intravenous/Amino Acids/ Electrolytes/ Dextrose (Intralipids/Tpn) 1,608 ml @ 67 mls/hr Q24H IV 10/01/16 21:00 10/31/16 20:59 Heparin Sodium (Porcine) (Heparin 5000 units/ml) 5,000 units EVERY 12 HOURS SUBQ 09/26/16 21:00 10/26/16 20:59 10/01/16 08:17 Insulin Aspart (NovoLOG) EVERY 6 HOURS SUBQ 09/26/16 12:00 10/26/16 11:59 10/01/16 06:11 Lansoprazole (Prevacid) 30 mg DAILY GT 09/27/16 09:00 10/27/16 08:59 09/30/16 11:19 Metoclopramide HCl (Reglan) 5 mg Q6HR NG 09/26/16 12:00 10/26/16 11:59 10/01/16 05:53 Metronidazole 500 mg 500 mg EVERY 8 HOURS ORAL 09/30/16 14:00 10/07/16 13:59 10/01/16 05:53 Minoxidil (Loniten) 15 mg BID GT 09/26/16 18:00 10/26/16 17:59 10/01/16 08:14 Phenytoin (Dilantin) 300 mg Q12HR GT 09/26/16 21:00 10/26/16 20:59 10/01/16 08:13 Phenytoin/Sodium Chloride (Dilantin/Sodium Chloride) 120 ml @ 120 mls/hr POSTHD IVPB 09/26/16 21:00 10/26/16 20:59 09/30/16 20:35 Phytonadione (Vitamin K) 10 mg QWEEK SUBQ 09/28/16 21:00 10/28/16 20:59 09/28/16 21:48 Piperacillin Sod/ Tazobactam Sod/ Dextrose (Zosyn/D5W) 55 ml @ 110 mls/hr Q8HR IVPB 09/28/16 14:00 10/03/16 13:59 10/01/16 05:53 Polyethylene Glycol (Miralax) 17 gm DAILYPRN PRN ORAL Constipation 09/26/16 23:00 10/26/16 22:59 Valproic Acid (Depakene) 1,000 mg POSTHD GT 09/26/16 11:00 10/26/16 10:59 09/28/16 17:09 Valproic Acid 1500 mg 1,500 mg Q12HR GT 09/26/16 21:00 10/26/16 20:59 10/01/16 08:13 Allergies: Coded Allergies: NIACIN (Verified Allergy, Unknown, ITCHING, 01/30/12) ROS Limited/Unobtainable: Yes Subjective 71 YO M admitted with volume overload and respiratory failure. S/P cardiopulmonary arrest. WILD. Intubated. Now acute pancreatitis. Cover for Int Med-Dr Vail. Objective Last Vital Signs Date Time Temp Pulse Resp B/P Pulse Ox O2 Delivery O2 Flow Rate FiO2 10/01/16 11:05 89 16 30 10/01/16 08:14 143/53 10/01/16 08:00 99.0 99 Mechanical Ventilator 09/30/16 18:37 4.0 Laboratory Tests Test 10/01/16 04:20 White Blood Count 15.7 K/UL (4.8-10.8) H Red Blood Count 2.43 M/UL (4.70-6.10) L Hemoglobin 7.8 G/DL (14.2-18.0) L Hematocrit 23.9 % (42.0-52.0) L Mean Corpuscular Volume 98 FL (80-99) Mean Corpuscular Hemoglobin 32.0 PG (27.0-31.0) H Mean Corpuscular Hemoglobin Concent 32.5 G/DL (32.0-36.0) Red Cell Distribution Width 15.5 % (11.6-14.8) H Platelet Count 255 K/UL (150-450) Mean Platelet Volume 6.4 FL (6.5-10.1) L Neutrophils (%) (Auto) % (45.0-75.0) Lymphocytes (%) (Auto) % (20.0-45.0) Monocytes (%) (Auto) % (1.0-10.0) Eosinophils (%) (Auto) % (0.0-3.0) Basophils (%) (Auto) % (0.0-2.0) Differential Total Cells Counted 100 Neutrophils % (Manual) 80 % (45-75) H Lymphocytes % (Manual) 8 % (20-45) L Monocytes % (Manual) 10 % (1-10) Eosinophils % (Manual) 2 % (0-3) Basophils % (Manual) 0 % (0-2) Band Neutrophils 0 % (0-8) Other Cell Type Pathologist comment Platelet Estimate Adequate Platelet Morphology Normal Hypochromasia 1+ Anisocytosis 1+ Sodium Level 142 mEQ/L (135-145) Potassium Level 3.2 mEQ/L (3.4-4.9) L Chloride Level 94 mEQ/L (98-107) L Carbon Dioxide Level 27 mEQ/L (20-30) Anion Gap 21 (5-15) H Blood Urea Nitrogen 39 mg/dL (7-23) H Creatinine 4.5 mg/dL (0.7-1.2) H Estimat Glomerular Filtration Rate 13.0 mL/min (>60) Glucose Level 179 mg/dL (74-106) H Calcium Level 8.9 mg/dL (8.6-10.2) Phosphorus Level 5.3 mg/dL (2.5-4.8) H Magnesium Level 1.9 mg/dL (1.7-2.5) Total Bilirubin < 0.2 mg/dL (0.0-1.2) Aspartate Amino Transf (AST/SGOT) 52 U/L (5-40) H Alanine Aminotransferase (ALT/SGPT) 5 U/L (3-41) Alkaline Phosphatase 119 U/L (40-129) Total Protein 6.2 g/dL (6.6-8.7) L Albumin 2.2 g/dL (3.5-5.2) L Globulin 4.0 g/dL Albumin/Globulin Ratio 0.5 (1.0-2.7) L Amylase Level 571 U/L (10-110) *H Lipase 917 U/L (< 60) H Microbiology Date/Time Source Procedure Growth Status 09/30/16 06:30 Stool Clostridium difficile Toxin Assay - Final Complete Intake and Output 09/30/16 10/01/16 19:00 07:00 Intake Total 1041 ml 670 ml Output Total 3500 ml Balance -2459 ml 670 ml Free Water 60 ml IV Total 981 ml 670 ml Hemodialysis UF 3500 ml # Bowel Movements 11 7 Objective General Appearance: WD/WN, lethargic EENT: PERRL/EOMI, normal ENT inspection, TMs normal Neck: non-tender, normal alignment, supple Cardiovascular: normal peripheral pulses, normal rate, regular rhythm, no gallop/murmur, no JVD Respiratory/Chest: Mech vent; chest wall non-tender, crackles/rales, rhonchi - bilaterally, expiratory wheezing Abdomen: normal bowel sounds, non tender, soft, no organomegaly Skin: normal pigmentation, warm/dry Assessment/Plan Problem List: (1) HTN (hypertension) Assessment & Plan: Cont amlodipine. (2) Hyperkalemia (3) Respiratory failure with hypoxia Assessment & Plan: Intubated and sedated. S/P Tracheostomy 09/24/16. (4) ESRD (end stage renal disease) Assessment & Plan: See nephrology note. Last Hemodialysis 09/30/16 per nephrology (5) CHF (congestive heart failure) (6) Diabetes mellitus Assessment & Plan: Cont novolog sliding scale. 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 (9) Anoxic encephalopathy syndrome Assessment & Plan: See neruo note. (10) Enterobacter sepsis (11) Pneumonia Assessment & Plan: Enterobacter. Cont zosyn and flagyl per ID (12) Anemia (13) Dysphagia Assessment & Plan: S/P PEG 09/23/16. (14) Cholecystitis, acute Assessment & Plan: See Surgery note. Not surgical candidate at this time. Continue zosyn and flagyl per ID (15) Pancreatitis, acute Assessment & Plan: Improving amylase and lipase. See GI note. Hold tube feeds ; continue TPN. (16) Fever Assessment & Plan: See ID note. Status: not improved Assessment/Plan Discharge to [facility] when accepted-see case management note. FILIBERTO CLANCY Oct 01, 2016 12:41
--- NOTE | 2016-10-01 13:11 | Nephrology Progress Note ---
Assessment/Plan Problem List: (1) ESRD (end stage renal disease) (2) Anoxic encephalopathy syndrome (3) Respiratory failure with hypoxia (4) CHF (congestive heart failure) (5) HTN (hypertension) (6) Acute pancreatitis Assessment: better (7) Pneumonia Assessment: enterobacter Plan HD tomorrow Increase Insulin in TPN Vent support follow labs abxs Replete K Discussed with RN and Pharmacist Subjective Subjective pt has diarrhea Objective Objective Last 24 Hour Vital Signs Date Time Temp Pulse Resp B/P Pulse Ox O2 Delivery O2 Flow Rate FiO2 10/01/16 12:34 86 17 30 10/01/16 11:05 89 16 30 10/01/16 09:12 87 14 30 10/01/16 08:14 143/53 10/01/16 08:14 92 143/53 10/01/16 08:00 30 10/01/16 08:00 89 10/01/16 08:00 99.0 89 21 140/54 99 Mechanical Ventilator 30 10/01/16 06:57 91 22 30 10/01/16 06:30 Mechanical Ventilator 30 10/01/16 05:30 85 18 30 10/01/16 04:00 30 10/01/16 03:54 89 10/01/16 03:51 99.7 93 25 107/52 100 Trach Collar 10/01/16 03:44 89 29 30 10/01/16 01:47 81 13 30 10/01/16 00:30 Mechanical Ventilator 30 10/01/16 00:00 99.1 90 20 107/63 100 Trach Collar 10/01/16 00:00 30 09/30/16 23:27 80 21 30 09/30/16 23:26 84 09/30/16 21:32 91 22 30 09/30/16 20:30 Mechanical Ventilator 30 09/30/16 20:00 30 09/30/16 20:00 99.8 93 21 109/50 99 Trach Collar 09/30/16 19:18 89 25 30 09/30/16 19:16 101 09/30/16 18:37 Mechanical Ventilator 4.0 30 09/30/16 18:00 125/58 09/30/16 16:30 92 18 30 09/30/16 16:00 30 09/30/16 16:00 89 09/30/16 16:00 98.6 87 22 124/59 100 Mechanical Ventilator 30 09/30/16 15:30 Mechanical Ventilator 4.0 30 09/30/16 14:43 90 18 30 Intake and Output 09/30/16 10/01/16 19:00 07:00 Intake Total 1041 ml 670 ml Output Total 3500 ml Balance -2459 ml 670 ml Free Water 60 ml IV Total 981 ml 670 ml Hemodialysis UF 3500 ml # Bowel Movements 11 7 Laboratory Tests 10/01/16 04:20: White Blood Count 15.7H, Red Blood Count 2.43L, Hemoglobin 7.8L, Hematocrit 23.9L, Mean Corpuscular Volume 98, Mean Corpuscular Hemoglobin 32.0H, Mean Corpuscular Hemoglobin Concent 32.5, Red Cell Distribution Width 15.5H, Platelet Count 255, Mean Platelet Volume 6.4L, Neutrophils (%) (Auto) , Lymphocytes (%) (Auto) , Monocytes (%) (Auto) , Eosinophils (%) (Auto) , Basophils (%) (Auto) , Differential Total Cells Counted 100, Neutrophils % ( Manual) 80H, Lymphocytes % (Manual) 8L, Monocytes % (Manual) 10, Eosinophils % ( Manual) 2, Basophils % (Manual) 0, Band Neutrophils 0, Other Cell Type Pathologist comment, Platelet Estimate Adequate, Platelet Morphology Normal, Hypochromasia 1+, Anisocytosis 1+, Sodium Level 142, Potassium Level 3.2L, Chloride Level 94L, Carbon Dioxide Level 27, Anion Gap 21H, Blood Urea Nitrogen 39H, Creatinine 4.5H, Estimat Glomerular Filtration Rate 13.0, Glucose Level 179H, Calcium Level 8.9, Phosphorus Level 5.3H, Magnesium Level 1.9, Total Bilirubin < 0.2, Aspartate Amino Transf (AST/SGOT) 52H, Alanine Aminotransferase (ALT/SGPT) 5, Alkaline Phosphatase 119, Total Protein 6.2L, Albumin 2.2L, Globulin 4.0, Albumin/Globulin Ratio 0.5L, Amylase Level 571*H, Lipase 917H Height (Feet): 5 Height (Inches): 9.00 Weight (Pounds): 186 Cardiovascular: normal rate Respiratory/Chest: lungs clear Extremities: other - no edema CANDICE BREAUX Oct 01, 2016 13:11
[2016-10-01] MEDS ORDERED: KCl 10% 40mEq/30ml liquid NG ONE ×2 (14:00→18:00)
[2016-10-01 16:00] VITALS: BP 141/62
[2016-10-01 20:00] VITALS: BP 146/81
[2016-10-01] MEDS ORDERED: TPN IV SCH (21:00)
[2016-10-01] MEDS ORDERED: FAT EMULSION 20% IV SCH (21:00)
[2016-10-01] MEDS: Epogen (for ESRD on dialysis) SUBQ SCH (21:31)
--- NOTE | 2016-10-01 22:14 | General Progress Note ---
Assessment/Plan Assessment/Plan Assessment - possible DM gastroparesis - Acute pancreatitis, presumed due to gallstone - Leukocytosis - encephalopathy - resp failure - DM - renal failure - Anemia, presumed due to renal failure Recommendations - PPI - Reglan / bethanecol - continue TPN - continue to follow amylase and lipase - will resume TF once amylase and lipase closer to resolution - abx per ID Subjective Allergies: Coded Allergies: NIACIN (Verified Allergy, Unknown, ITCHING, 01/30/12) Subjective uneventful day Amylase and lipase on the decline Objective Last 24 Hour Vital Signs Date Time Temp Pulse Resp B/P Pulse Ox O2 Delivery O2 Flow Rate FiO2 10/01/16 20:00 97.7 99 24 146/81 99 Mechanical Ventilator 30 10/01/16 19:30 86 29 30 10/01/16 17:03 141/62 10/01/16 16:31 88 20 30 10/01/16 16:00 96 10/01/16 16:00 30 10/01/16 16:00 98.8 99 20 141/62 99 Mechanical Ventilator 30 10/01/16 14:49 87 21 30 10/01/16 12:34 86 17 30 10/01/16 12:00 30 10/01/16 12:00 97.6 90 20 112/42 99 Mechanical Ventilator 30 10/01/16 12:00 93 10/01/16 11:05 89 16 30 10/01/16 09:12 87 14 30 10/01/16 08:14 143/53 10/01/16 08:14 92 143/53 10/01/16 08:00 30 10/01/16 08:00 89 10/01/16 08:00 99.0 89 21 140/54 99 Mechanical Ventilator 30 10/01/16 06:57 91 22 30 10/01/16 06:30 Mechanical Ventilator 30 10/01/16 05:30 85 18 30 10/01/16 04:00 30 10/01/16 03:54 89 10/01/16 03:51 99.7 93 25 107/52 100 Trach Collar 10/01/16 03:44 89 29 30 10/01/16 01:47 81 13 30 10/01/16 00:30 Mechanical Ventilator 30 10/01/16 00:00 99.1 90 20 107/63 100 Trach Collar 10/01/16 00:00 30 09/30/16 23:27 80 21 30 09/30/16 23:26 84 Intake and Output 09/30/16 10/01/16 18:59 06:59 Intake Total 974 ml 670 ml Output Total 3500 ml Balance -2526 ml 670 ml Free Water 60 ml IV Total 914 ml 670 ml Hemodialysis UF 3500 ml # Bowel Movements 11 7 Laboratory Tests 10/01/16 04:20: White Blood Count 15.7H, Red Blood Count 2.43L, Hemoglobin 7.8L, Hematocrit 23.9L, Mean Corpuscular Volume 98, Mean Corpuscular Hemoglobin 32.0H, Mean Corpuscular Hemoglobin Concent 32.5, Red Cell Distribution Width 15.5H, Platelet Count 255, Mean Platelet Volume 6.4L, Neutrophils (%) (Auto) , Lymphocytes (%) (Auto) , Monocytes (%) (Auto) , Eosinophils (%) (Auto) , Basophils (%) (Auto) , Differential Total Cells Counted 100, Neutrophils % ( Manual) 80H, Lymphocytes % (Manual) 8L, Monocytes % (Manual) 10, Eosinophils % ( Manual) 2, Basophils % (Manual) 0, Band Neutrophils 0, Other Cell Type Pathologist comment, Platelet Estimate Adequate, Platelet Morphology Normal, Hypochromasia 1+, Anisocytosis 1+, Sodium Level 142, Potassium Level 3.2L, Chloride Level 94L, Carbon Dioxide Level 27, Anion Gap 21H, Blood Urea Nitrogen 39H, Creatinine 4.5H, Estimat Glomerular Filtration Rate 13.0, Glucose Level 179H, Calcium Level 8.9, Phosphorus Level 5.3H, Magnesium Level 1.9, Total Bilirubin < 0.2, Aspartate Amino Transf (AST/SGOT) 52H, Alanine Aminotransferase (ALT/SGPT) 5, Alkaline Phosphatase 119, Total Protein 6.2L, Albumin 2.2L, Globulin 4.0, Albumin/Globulin Ratio 0.5L, Amylase Level 571*H, Lipase 917H Height (Feet): 5 Height (Inches): 9.00 Weight (Pounds): 186 Objective Intubated and unresponsive NCAT, (+)trach supple Coarse BS RR soft ND abdomen, (+) umbilical hernia w/o change, (+) GT no edema unresponsive ANNE CURRAN Oct 01, 2016 22:14
[2016-10-01] MEDS: Dyna-Hex 2% Top Sol 8oz TOPIC SCH (22:54)
[2016-10-02] VITALS: BP 129/50
[2016-10-02] MEDS: Metoclopramide 10mg/10ml Liq NG SCH ×5 (00:36→23:27)
[2016-10-02] MEDS: NovoLOG Insulin Flexpen SUBQ SCH ×5 (00:43→23:29)
[2016-10-02 04:30] VITALS: BP 135/50
[2016-10-02 05:09] LABS: BASOPHILS % (AUTO) 2.4 % (0.0-2.0); EOSINOPHILS % (AUTO) 2.9 % (0.0-3.0); LYMPHOCYTES % (AUTO) 9.8 % (20.0-45.0); MEAN CORPUSCULAR HEMOGLOBIN 31.2 PG (27.0-31.0); MEAN CORPUSCULAR HGB CONC 32.2 G/DL (32.0-36.0); MEAN CORPUSCULAR VOLUME 97 FL (80-99); MEAN PLATELET VOLUME 5.8 FL (6.5-10.1); MONOCYTES % (AUTO) 12.6 % (1.0-10.0); NEUTROPHILS % (AUTO) 72.3 % (45.0-75.0); PLATELET COUNT 269 K/UL (150-450); RED BLOOD COUNT 2.65 M/UL (4.70-6.10); RED CELL DISTRIBUTION WIDTH 15.1 % (11.6-14.8); WHITE BLOOD COUNT 15.2 K/UL (4.8-10.8)
[2016-10-02 05:49] LABS: CALCIUM 9.4 mg/dL (8.6-10.2); CREATININE 5.3 mg/dL (0.7-1.2); GLOMERULAR FILTRATION RATE 10.8 mL/min (>60); POTASSIUM 4.1 mEQ/L (3.4-4.9)
[2016-10-02 05:53] LABS: HEMOLYSIS 11; IRON 69 ug/dL (59-158); TOTAL IRON BINDING CAPACITY 105 ug/dL (250-400)
[2016-10-02] MEDS: Piperacillin/Tazobactam 2.25 GM in D5W 55 ML IVPB SCH ×3 (06:07→21:51)
[2016-10-02] MEDS: metroNIDAZOLE 500mg tab ORAL SCH ×3 (06:08→21:49)
[2016-10-02 08:00] VITALS: BP 153/103
--- NOTE | 2016-10-02 08:22 | Infectious Diseases Prog Note ---
Assessment/Plan Assessment/Plan A; Acute pancreatitis pneumonia with Enterobacter s/p Rx COPD s/p cardiac arrest Anoxic encephalopathy ESRD on HD Respiratory failure s/p tracheostomy s/p GT placement P; continue Zosyn & Flagyl Subjective ROS Limited/Unobtainable: Yes Allergies: Coded Allergies: NIACIN (Verified Allergy, Unknown, ITCHING, 01/30/12) Objective Vital Signs Last 24 Hour Vital Signs Date Time Temp Pulse Resp B/P Pulse Ox O2 Delivery O2 Flow Rate FiO2 10/02/16 08:00 97.8 99 28 153/103 100 Mechanical Ventilator 30.0 10/02/16 05:28 102 35 30 10/02/16 04:30 98.0 90 24 135/50 100 Mechanical Ventilator 30 10/02/16 04:00 30 10/02/16 03:55 93 10/02/16 03:19 94 32 30 10/02/16 01:15 91 21 30 10/02/16 00:00 98.7 90 24 129/50 96 Mechanical Ventilator 30 10/02/16 00:00 30 10/01/16 23:59 90 10/01/16 23:18 94 19 30 10/01/16 21:30 80 29 30 10/01/16 20:00 30 10/01/16 20:00 97.7 99 24 146/81 99 Mechanical Ventilator 30 10/01/16 19:30 86 29 30 10/01/16 19:27 99 10/01/16 17:03 141/62 10/01/16 16:31 88 20 30 10/01/16 16:00 96 10/01/16 16:00 30 10/01/16 16:00 98.8 99 20 141/62 99 Mechanical Ventilator 30 10/01/16 14:49 87 21 30 10/01/16 12:34 86 17 30 10/01/16 12:00 30 10/01/16 12:00 97.6 90 20 112/42 99 Mechanical Ventilator 30 10/01/16 12:00 93 10/01/16 11:05 89 16 30 10/01/16 09:12 87 14 30 Height (Feet): 5 Height (Inches): 9.00 Weight (Pounds): 179 HEENT: status post trach Respiratory/Chest: lungs clear, other - on ventilator Cardiovascular: normal rate Abdomen: soft, non tender, other - GT, on TPN Extremities: no edema Neurologic/Psychiatric: disoriented Microbiology Date/Time Source Procedure Growth Status 09/30/16 06:30 Stool Clostridium difficile Toxin Assay - Final Complete Laboratory Tests Test 10/02/16 03:45 White Blood Count 15.2 K/UL (4.8-10.8) H Red Blood Count 2.65 M/UL (4.70-6.10) L Hemoglobin 8.3 G/DL (14.2-18.0) L Hematocrit 25.7 % (42.0-52.0) L Mean Corpuscular Volume 97 FL (80-99) Mean Corpuscular Hemoglobin 31.2 PG (27.0-31.0) H Mean Corpuscular Hemoglobin Concent 32.2 G/DL (32.0-36.0) Red Cell Distribution Width 15.1 % (11.6-14.8) H Platelet Count 269 K/UL (150-450) Mean Platelet Volume 5.8 FL (6.5-10.1) L Neutrophils (%) (Auto) 72.3 % (45.0-75.0) Lymphocytes (%) (Auto) 9.8 % (20.0-45.0) L Monocytes (%) (Auto) 12.6 % (1.0-10.0) H Eosinophils (%) (Auto) 2.9 % (0.0-3.0) Basophils (%) (Auto) 2.4 % (0.0-2.0) H Sodium Level 142 mEQ/L (135-145) Potassium Level 4.1 mEQ/L (3.4-4.9) Chloride Level 95 mEQ/L (98-107) L Carbon Dioxide Level 25 mEQ/L (20-30) Anion Gap 22 (5-15) H Blood Urea Nitrogen 55 mg/dL (7-23) H Creatinine 5.3 mg/dL (0.7-1.2) H Estimat Glomerular Filtration Rate 10.8 mL/min (>60) Glucose Level 195 mg/dL (74-106) H Calcium Level 9.4 mg/dL (8.6-10.2) Phosphorus Level 5.8 mg/dL (2.5-4.8) H Iron Level 69 ug/dL (59-158) Total Iron Binding Capacity 105 ug/dL (250-400) L Percent Iron Saturation 66 % (15-50) H Unsaturated Iron Binding 36 ug/dL (112-346) L Current Medications Medications (Trade) Dose Ordered Sig/Mark Route PRN Reason Start Time Stop Time Status Last Admin Dose Admin Acetaminophen (Tylenol) 650 mg Q4H PRN ORAL Mild Pain (Pain Scale 1-3) 09/26/16 11:00 10/26/16 10:59 09/27/16 09:03 Amlodipine Besylate (Norvasc) 10 mg DAILY GT 09/27/16 09:00 10/27/16 08:59 10/01/16 08:14 Bethanechol Chloride (Urecholine) 10 mg THREE TIMES A DAY ORAL 09/26/16 13:00 10/26/16 12:59 10/01/16 17:03 Chlorhexidine Gluconate (Lakshmi-Hex 2%) 1 applic Q24H TOPIC 09/26/16 21:00 10/26/16 20:59 10/01/16 22:54 Dextrose (D10w) 1,000 ml @ 0 mls/hr Q24H PRN IV PN interrupted or unavailable 09/28/16 21:00 10/28/16 20:59 Dextrose STAT PRN IV Hypoglycemia 09/28/16 12:00 10/28/16 11:59 Epoetin Kiko (Procrit (for ESRD on dialysis)) 10,000 units THU-THU-THU SUBQ 09/29/16 21:00 10/29/16 20:59 10/01/16 21:31 Fat Emulsion Intravenous/Amino Acids/ Electrolytes/ Dextrose (Intralipids/Tpn) 1,608 ml @ 67 mls/hr Q24H IV 10/01/16 21:00 10/31/16 20:59 10/01/16 21:41 Heparin Sodium (Porcine) (Heparin 5000 units/ml) 5,000 units EVERY 12 HOURS SUBQ 09/26/16 21:00 10/26/16 20:59 10/01/16 21:30 Heparin Sodium (Porcine) (Heparin Sod 1000 units/ml 10ml) 2,000 unit ONCE ONCE IV 10/02/16 15:15 10/02/16 15:16 Insulin Aspart (NovoLOG) EVERY 6 HOURS SUBQ 09/26/16 12:00 10/26/16 11:59 10/02/16 06:12 Lansoprazole (Prevacid) 30 mg DAILY GT 09/27/16 09:00 10/27/16 08:59 09/30/16 11:19 Metoclopramide HCl (Reglan) 5 mg Q6HR NG 09/26/16 12:00 10/26/16 11:59 10/02/16 06:08 Metronidazole 500 mg 500 mg EVERY 8 HOURS ORAL 09/30/16 14:00 10/07/16 13:59 10/02/16 06:08 Minoxidil (Loniten) 15 mg BID GT 09/26/16 18:00 10/26/16 17:59 10/01/16 17:03 Phenytoin (Dilantin) 300 mg Q12HR GT 09/26/16 21:00 10/26/16 20:59 10/01/16 21:23 Phenytoin/Sodium Chloride (Dilantin/Sodium Chloride) 120 ml @ 120 mls/hr POSTHD IVPB 09/26/16 21:00 10/26/16 20:59 09/30/16 20:35 Phytonadione (Vitamin K) 10 mg QWEEK SUBQ 09/28/16 21:00 10/28/16 20:59 09/28/16 21:48 Piperacillin Sod/ Tazobactam Sod/ Dextrose (Zosyn/D5W) 55 ml @ 110 mls/hr Q8HR IVPB 09/28/16 14:00 10/03/16 13:59 10/02/16 06:07 Polyethylene Glycol (Miralax) 17 gm DAILYPRN PRN ORAL Constipation 09/26/16 23:00 10/26/16 22:59 Valproic Acid (Depakene) 1,000 mg POSTHD GT 09/26/16 11:00 10/26/16 10:59 09/28/16 17:09 Valproic Acid 1500 mg 1,500 mg Q12HR GT 09/26/16 21:00 10/26/16 20:59 10/01/16 21:29 ROZINA BREAUX Oct 02, 2016 08:22
[2016-10-02] MEDS: Valproic Acid 250mg/5ml Liquid GT SCH ×3 (09:00→20:38)
[2016-10-02] MEDS: Heparin 5000 units/ml inj SUBQ SCH ×2 (09:00→20:37)
[2016-10-02] MEDS: Minoxidil 10mg tab GT SCH ×2 (09:00→18:12)
[2016-10-02] MEDS: Phenytoin Susp 100mg/4ml GT SCH ×2 (09:00→20:39)
[2016-10-02] MEDS: Bethanechol 10mg Tab ORAL SCH ×3 (09:00→18:12)
[2016-10-02] MEDS: LORazepam Inj 2mg/ml 1ml IV PRN (10:57)
[2016-10-02 11:59] VITALS: BP 153/77
--- NOTE | 2016-10-02 13:14 | Nephrology Progress Note ---
Assessment/Plan Problem List: (1) ESRD (end stage renal disease) (2) Anoxic encephalopathy syndrome (3) Respiratory failure with hypoxia (4) CHF (congestive heart failure) (5) HTN (hypertension) (6) Acute pancreatitis Assessment: better (7) Pneumonia Assessment: enterobacter Plan was dialyzed Increase Insulin in TPN Vent support follow labs abxs Discussed with RN and Pharmacist Discussed with Dr Arias Discussed with family Subjective Subjective all noted Objective Objective Last 24 Hour Vital Signs Date Time Temp Pulse Resp B/P Pulse Ox O2 Delivery O2 Flow Rate FiO2 10/02/16 12:00 30 10/02/16 11:59 98.1 102 38 153/77 100 Mechanical Ventilator 30 10/02/16 11:05 98 31 30 10/02/16 10:15 Mechanical Ventilator 40 10/02/16 08:56 99 30 30 10/02/16 08:45 99 24 30 10/02/16 08:40 Mechanical Ventilator 40 10/02/16 08:00 30 10/02/16 08:00 97.8 99 28 153/103 100 Mechanical Ventilator 30.0 10/02/16 07:37 105 10/02/16 05:28 102 35 30 10/02/16 04:30 98.0 90 24 135/50 100 Mechanical Ventilator 30 10/02/16 04:00 30 10/02/16 03:55 93 10/02/16 03:19 94 32 30 10/02/16 01:15 91 21 30 10/02/16 00:00 98.7 90 24 129/50 96 Mechanical Ventilator 30 10/02/16 00:00 30 10/01/16 23:59 90 10/01/16 23:18 94 19 30 10/01/16 21:30 80 29 30 10/01/16 20:00 30 10/01/16 20:00 97.7 99 24 146/81 99 Mechanical Ventilator 30 10/01/16 19:30 86 29 30 10/01/16 19:27 99 10/01/16 17:03 141/62 10/01/16 16:31 88 20 30 10/01/16 16:00 96 10/01/16 16:00 30 10/01/16 16:00 98.8 99 20 141/62 99 Mechanical Ventilator 30 10/01/16 14:49 87 21 30 Intake and Output 10/01/16 10/02/16 19:00 07:00 Intake Total 804 ml 836 ml Balance 804 ml 836 ml IV Total 804 ml 536 ml Blood Product 300 ml # Bowel Movements 5 6 Laboratory Tests 10/02/16 03:45: White Blood Count 15.2H, Red Blood Count 2.65L, Hemoglobin 8.3L, Hematocrit 25.7L, Mean Corpuscular Volume 97, Mean Corpuscular Hemoglobin 31.2H, Mean Corpuscular Hemoglobin Concent 32.2, Red Cell Distribution Width 15.1H, Platelet Count 269, Mean Platelet Volume 5.8L, Neutrophils (%) (Auto) 72.3, Lymphocytes (%) (Auto) 9.8L, Monocytes (%) (Auto) 12.6H, Eosinophils (%) (Auto) 2.9, Basophils (%) (Auto) 2.4H, Sodium Level 142, Potassium Level 4.1, Chloride Level 95L, Carbon Dioxide Level 25, Anion Gap 22H, Blood Urea Nitrogen 55H, Creatinine 5.3H, Estimat Glomerular Filtration Rate 10.8, Glucose Level 195H, Calcium Level 9.4, Phosphorus Level 5.8H, Iron Level 69, Total Iron Binding Capacity 105L, Percent Iron Saturation 66H, Unsaturated Iron Binding 36L Height (Feet): 5 Height (Inches): 9.00 Weight (Pounds): 179 Cardiovascular: normal rate Respiratory/Chest: lungs clear Abdomen: soft CANDICE BREAUX Oct 02, 2016 13:14
[2016-10-02] MEDS ORDERED: Heparin Sod 1000 units/ml 10ml IV ONE (15:15)
[2016-10-02 16:00] VITALS: BP_SYST 134; BP_SYST 156; BP_DIAS 67; BP_DIAS 97
[2016-10-02] MEDS: Phenytoin 500 MG in NS 110 ML IVPB SCH (16:24)
--- NOTE | 2016-10-02 16:59 | Internal Med Progress Note ---
Subjective Date of Service: Oct 02, 2016 Physician Name Filiberto Clancy Attending Physician Harrison Delatorre Current Medications Medications (Trade) Dose Ordered Sig/Mark Route PRN Reason Start Time Stop Time Status Last Admin Dose Admin Acetaminophen (Tylenol) 650 mg Q4H PRN ORAL Mild Pain (Pain Scale 1-3) 09/26/16 11:00 10/26/16 10:59 10/02/16 10:57 Amlodipine Besylate (Norvasc) 10 mg DAILY GT 09/27/16 09:00 10/27/16 08:59 10/01/16 08:14 Bethanechol Chloride (Urecholine) 10 mg THREE TIMES A DAY ORAL 09/26/16 13:00 10/26/16 12:59 10/02/16 12:08 Chlorhexidine Gluconate (Lakshmi-Hex 2%) 1 applic Q24H TOPIC 09/26/16 21:00 10/26/16 20:59 10/01/16 22:54 Dextrose (D10w) 1,000 ml @ 0 mls/hr Q24H PRN IV PN interrupted or unavailable 09/28/16 21:00 10/28/16 20:59 Dextrose STAT PRN IV Hypoglycemia 09/28/16 12:00 10/28/16 11:59 Epoetin Kiko (Procrit (for ESRD on dialysis)) 10,000 units THU-THU-THU SUBQ 09/29/16 21:00 10/29/16 20:59 10/01/16 21:31 Fat Emulsion Intravenous/Amino Acids/ Electrolytes/ Dextrose (Intralipids/Tpn) 1,608 ml @ 67 mls/hr Q24H IV 10/01/16 21:00 10/02/16 20:59 10/01/16 21:41 Fat Emulsion Intravenous/Amino Acids/ Electrolytes/ Dextrose (Intralipids/Tpn) 1,608 ml @ 67 mls/hr Q24H IV 10/02/16 21:00 11/01/16 20:59 Heparin Sodium (Porcine) (Heparin 5000 units/ml) 5,000 units EVERY 12 HOURS SUBQ 09/26/16 21:00 10/26/16 20:59 10/01/16 21:30 Insulin Aspart (NovoLOG) EVERY 6 HOURS SUBQ 09/26/16 12:00 10/26/16 11:59 10/02/16 12:07 Lansoprazole (Prevacid) 30 mg DAILY GT 09/27/16 09:00 10/27/16 08:59 09/30/16 11:19 Lorazepam 1 mg 1 mg DAILYPRN PRN IV agitation prior to HD 10/02/16 10:30 10/09/16 10:29 10/02/16 10:57 Metoclopramide HCl (Reglan) 5 mg Q6HR NG 09/26/16 12:00 10/26/16 11:59 10/02/16 12:07 Metronidazole 500 mg 500 mg EVERY 8 HOURS ORAL 09/30/16 14:00 10/07/16 13:59 10/02/16 14:11 Minoxidil (Loniten) 15 mg BID GT 09/26/16 18:00 10/26/16 17:59 10/01/16 17:03 Phenytoin (Dilantin) 300 mg Q12HR GT 09/26/16 21:00 10/26/16 20:59 10/01/16 21:23 Phenytoin/Sodium Chloride (Dilantin/Sodium Chloride) 120 ml @ 120 mls/hr POSTHD IVPB 09/26/16 21:00 10/26/16 20:59 10/02/16 16:24 Phytonadione (Vitamin K) 10 mg QWEEK SUBQ 09/28/16 21:00 10/28/16 20:59 09/28/16 21:48 Piperacillin Sod/ Tazobactam Sod/ Dextrose (Zosyn/D5W) 55 ml @ 110 mls/hr Q8HR IVPB 09/28/16 14:00 10/07/16 13:59 10/02/16 14:11 Polyethylene Glycol (Miralax) 17 gm DAILYPRN PRN ORAL Constipation 09/26/16 23:00 10/26/16 22:59 Valproic Acid (Depakene) 1,000 mg POSTHD GT 09/26/16 11:00 10/26/16 10:59 09/28/16 17:09 Valproic Acid 1500 mg 1,500 mg Q12HR GT 09/26/16 21:00 10/26/16 20:59 10/01/16 21:29 Allergies: Coded Allergies: NIACIN (Verified Allergy, Unknown, ITCHING, 01/30/12) ROS Limited/Unobtainable: Yes Subjective 71 YO M admitted with volume overload and respiratory failure. S/P cardiopulmonary arrest. WILD. Intubated. Now acute pancreatitis. Cover for Int Med-Dr Vail. Objective Last Vital Signs Date Time Temp Pulse Resp B/P Pulse Ox O2 Delivery O2 Flow Rate FiO2 10/02/16 16:00 30 10/02/16 15:29 95 10/02/16 15:19 31 10/02/16 11:59 98.1 153/77 100 Mechanical Ventilator 10/02/16 08:00 30.0 Laboratory Tests Test 10/02/16 03:45 White Blood Count 15.2 K/UL (4.8-10.8) H Red Blood Count 2.65 M/UL (4.70-6.10) L Hemoglobin 8.3 G/DL (14.2-18.0) L Hematocrit 25.7 % (42.0-52.0) L Mean Corpuscular Volume 97 FL (80-99) Mean Corpuscular Hemoglobin 31.2 PG (27.0-31.0) H Mean Corpuscular Hemoglobin Concent 32.2 G/DL (32.0-36.0) Red Cell Distribution Width 15.1 % (11.6-14.8) H Platelet Count 269 K/UL (150-450) Mean Platelet Volume 5.8 FL (6.5-10.1) L Neutrophils (%) (Auto) 72.3 % (45.0-75.0) Lymphocytes (%) (Auto) 9.8 % (20.0-45.0) L Monocytes (%) (Auto) 12.6 % (1.0-10.0) H Eosinophils (%) (Auto) 2.9 % (0.0-3.0) Basophils (%) (Auto) 2.4 % (0.0-2.0) H Sodium Level 142 mEQ/L (135-145) Potassium Level 4.1 mEQ/L (3.4-4.9) Chloride Level 95 mEQ/L (98-107) L Carbon Dioxide Level 25 mEQ/L (20-30) Anion Gap 22 (5-15) H Blood Urea Nitrogen 55 mg/dL (7-23) H Creatinine 5.3 mg/dL (0.7-1.2) H Estimat Glomerular Filtration Rate 10.8 mL/min (>60) Glucose Level 195 mg/dL (74-106) H Calcium Level 9.4 mg/dL (8.6-10.2) Phosphorus Level 5.8 mg/dL (2.5-4.8) H Iron Level 69 ug/dL (59-158) Total Iron Binding Capacity 105 ug/dL (250-400) L Percent Iron Saturation 66 % (15-50) H Unsaturated Iron Binding 36 ug/dL (112-346) L Microbiology Date/Time Source Procedure Growth Status 09/30/16 06:30 Stool Clostridium difficile Toxin Assay - Final Complete Intake and Output 10/01/16 10/02/16 19:00 07:00 Intake Total 804 ml 836 ml Balance 804 ml 836 ml IV Total 804 ml 536 ml Blood Product 300 ml # Bowel Movements 5 6 Objective General Appearance: WD/WN, lethargic EENT: PERRL/EOMI, normal ENT inspection, TMs normal Neck: non-tender, normal alignment, supple Cardiovascular: normal peripheral pulses, normal rate, regular rhythm, no gallop/murmur, no JVD Respiratory/Chest: Mech vent; chest wall non-tender, crackles/rales, rhonchi - bilaterally, expiratory wheezing Abdomen: normal bowel sounds, non tender, soft, no organomegaly Skin: normal pigmentation, warm/dry Assessment/Plan Problem List: (1) HTN (hypertension) Assessment & Plan: Cont amlodipine. (2) Hyperkalemia (3) Respiratory failure with hypoxia Assessment & Plan: Intubated and sedated. S/P Tracheostomy 09/24/16. (4) ESRD (end stage renal disease) Assessment & Plan: See nephrology note. Last Hemodialysis 10/02/16 per nephrology (5) CHF (congestive heart failure) (6) Diabetes mellitus Assessment & Plan: Cont novolog sliding scale. 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 (9) Anoxic encephalopathy syndrome Assessment & Plan: See neruo note. (10) Enterobacter sepsis (11) Pneumonia Assessment & Plan: Enterobacter. Cont zosyn and flagyl per ID (12) Anemia (13) Dysphagia Assessment & Plan: S/P PEG 09/23/16. (14) Cholecystitis, acute Assessment & Plan: See Surgery note. Not surgical candidate at this time. Continue zosyn and flagyl per ID (15) Pancreatitis, acute Assessment & Plan: Improving amylase and lipase. See GI note. Hold tube feeds ; continue TPN. (16) Fever Assessment & Plan: See ID note. Status: progressing Assessment/Plan Discharge to [facility] when accepted-see case management note. FILIBERTO CLANCY Oct 02, 2016 16:59
--- NOTE | 2016-10-02 17:07 | Pulmonology Progress Note ---
Assessment/Plan Assessment/Plan 1. Status post cardiac arrest. 2. Renal failure with hyperkalemia. 3. Respiratory failure. 4. Anoxic encephalopathy. 5. Status epilepticus 6. Coronary artery disease. 7. History of cardiomyopathy. 8. Diabetes. 9. Hypertension. 10 Pancreatitis no weaning attempts trach and vent dependent cont TPN disc kade dixon RN Subjective Constitutional: Denies: fever Allergies: Coded Allergies: NIACIN (Verified Allergy, Unknown, ITCHING, 01/30/12) Subjective agitated Objective Last 24 Hour Vital Signs Date Time Temp Pulse Resp B/P Pulse Ox O2 Delivery O2 Flow Rate FiO2 10/02/16 16:00 30 10/02/16 15:29 95 10/02/16 15:19 94 31 30 10/02/16 13:20 23 30 10/02/16 12:00 30 10/02/16 11:59 98.1 102 38 153/77 100 Mechanical Ventilator 30 10/02/16 11:25 96 10/02/16 11:05 98 31 30 10/02/16 10:15 Mechanical Ventilator 40 10/02/16 08:56 99 30 30 10/02/16 08:45 99 24 30 10/02/16 08:40 Mechanical Ventilator 40 10/02/16 08:00 30 10/02/16 08:00 97.8 99 28 153/103 100 Mechanical Ventilator 30.0 10/02/16 07:37 105 10/02/16 05:28 102 35 30 10/02/16 04:30 98.0 90 24 135/50 100 Mechanical Ventilator 30 10/02/16 04:00 30 10/02/16 03:55 93 10/02/16 03:19 94 32 30 10/02/16 01:15 91 21 30 10/02/16 00:00 98.7 90 24 129/50 96 Mechanical Ventilator 30 10/02/16 00:00 30 10/01/16 23:59 90 10/01/16 23:18 94 19 30 10/01/16 21:30 80 29 30 10/01/16 20:00 30 10/01/16 20:00 97.7 99 24 146/81 99 Mechanical Ventilator 30 10/01/16 19:30 86 29 30 10/01/16 19:27 99 Intake and Output 10/01/16 10/02/16 19:00 07:00 Intake Total 804 ml 836 ml Balance 804 ml 836 ml IV Total 804 ml 536 ml Blood Product 300 ml # Bowel Movements 5 6 HEENT: atraumatic, status post trach Respiratory/Chest: rhonchi Cardiovascular: regular rhythm Microbiology Date/Time Source Procedure Growth Status 09/30/16 06:30 Stool Clostridium difficile Toxin Assay - Final Complete Laboratory Tests 10/02/16 03:45: White Blood Count 15.2H, Red Blood Count 2.65L, Hemoglobin 8.3L, Hematocrit 25.7L, Mean Corpuscular Volume 97, Mean Corpuscular Hemoglobin 31.2H, Mean Corpuscular Hemoglobin Concent 32.2, Red Cell Distribution Width 15.1H, Platelet Count 269, Mean Platelet Volume 5.8L, Neutrophils (%) (Auto) 72.3, Lymphocytes (%) (Auto) 9.8L, Monocytes (%) (Auto) 12.6H, Eosinophils (%) (Auto) 2.9, Basophils (%) (Auto) 2.4H, Sodium Level 142, Potassium Level 4.1, Chloride Level 95L, Carbon Dioxide Level 25, Anion Gap 22H, Blood Urea Nitrogen 55H, Creatinine 5.3H, Estimat Glomerular Filtration Rate 10.8, Glucose Level 195H, Calcium Level 9.4, Phosphorus Level 5.8H, Iron Level 69, Total Iron Binding Capacity 105L, Percent Iron Saturation 66H, Unsaturated Iron Binding 36L Current Medications Medications (Trade) Dose Ordered Sig/Mark Route PRN Reason Start Time Stop Time Status Last Admin Dose Admin Acetaminophen (Tylenol) 650 mg Q4H PRN ORAL Mild Pain (Pain Scale 1-3) 09/26/16 11:00 10/26/16 10:59 10/02/16 10:57 Amlodipine Besylate (Norvasc) 10 mg DAILY GT 09/27/16 09:00 10/27/16 08:59 10/01/16 08:14 Bethanechol Chloride (Urecholine) 10 mg THREE TIMES A DAY ORAL 09/26/16 13:00 10/26/16 12:59 10/02/16 12:08 Chlorhexidine Gluconate (Lakshmi-Hex 2%) 1 applic Q24H TOPIC 09/26/16 21:00 10/26/16 20:59 10/01/16 22:54 Dextrose (D10w) 1,000 ml @ 0 mls/hr Q24H PRN IV PN interrupted or unavailable 09/28/16 21:00 10/28/16 20:59 Dextrose STAT PRN IV Hypoglycemia 09/28/16 12:00 10/28/16 11:59 Epoetin Kiko (Procrit (for ESRD on dialysis)) 10,000 units THU-THU-THU SUBQ 09/29/16 21:00 10/29/16 20:59 10/01/16 21:31 Fat Emulsion Intravenous/Amino Acids/ Electrolytes/ Dextrose (Intralipids/Tpn) 1,608 ml @ 67 mls/hr Q24H IV 10/01/16 21:00 10/02/16 20:59 10/01/16 21:41 Fat Emulsion Intravenous/Amino Acids/ Electrolytes/ Dextrose (Intralipids/Tpn) 1,608 ml @ 67 mls/hr Q24H IV 10/02/16 21:00 11/01/16 20:59 Heparin Sodium (Porcine) (Heparin 5000 units/ml) 5,000 units EVERY 12 HOURS SUBQ 09/26/16 21:00 10/26/16 20:59 10/01/16 21:30 Insulin Aspart (NovoLOG) EVERY 6 HOURS SUBQ 09/26/16 12:00 10/26/16 11:59 10/02/16 12:07 Lansoprazole (Prevacid) 30 mg DAILY GT 09/27/16 09:00 10/27/16 08:59 09/30/16 11:19 Lorazepam 1 mg 1 mg DAILYPRN PRN IV agitation prior to HD 10/02/16 10:30 10/09/16 10:29 10/02/16 10:57 Metoclopramide HCl (Reglan) 5 mg Q6HR NG 09/26/16 12:00 10/26/16 11:59 10/02/16 12:07 Metronidazole 500 mg 500 mg EVERY 8 HOURS ORAL 09/30/16 14:00 10/07/16 13:59 10/02/16 14:11 Minoxidil (Loniten) 15 mg BID GT 09/26/16 18:00 10/26/16 17:59 10/01/16 17:03 Phenytoin (Dilantin) 300 mg Q12HR GT 09/26/16 21:00 10/26/16 20:59 10/01/16 21:23 Phenytoin/Sodium Chloride (Dilantin/Sodium Chloride) 120 ml @ 120 mls/hr POSTHD IVPB 09/26/16 21:00 10/26/16 20:59 10/02/16 16:24 Phytonadione (Vitamin K) 10 mg QWEEK SUBQ 09/28/16 21:00 10/28/16 20:59 09/28/16 21:48 Piperacillin Sod/ Tazobactam Sod/ Dextrose (Zosyn/D5W) 55 ml @ 110 mls/hr Q8HR IVPB 09/28/16 14:00 10/07/16 13:59 10/02/16 14:11 Polyethylene Glycol (Miralax) 17 gm DAILYPRN PRN ORAL Constipation 09/26/16 23:00 10/26/16 22:59 Valproic Acid (Depakene) 1,000 mg POSTHD GT 09/26/16 11:00 10/26/16 10:59 09/28/16 17:09 Valproic Acid 1500 mg 1,500 mg Q12HR GT 09/26/16 21:00 10/26/16 20:59 10/01/16 21:29 CHLOE ESQUIVEL Oct 02, 2016 17:07
--- NOTE | 2016-10-02 19:57 | Cardiology Progress Note ---
Assessment/Plan Problem List: (1) Pneumonia (2) Enterobacter sepsis (3) CHF (congestive heart failure) (4) ESRD (end stage renal disease) (5) Anoxic encephalopathy syndrome (6) Pancreatitis, acute Status: stable, unchanged Status Narrative Pancreatitis appears to be resolving - enzymes decreasing. Anoxic encephalopathy - unchanged. On HD, trach and w/ PEG, but not yet on TF Assessment/Plan Continue supportive care, iv antibiotics, vent support, hemodialysis, TPN Overall appears hemodynamically stable. Subjective ROS Limited/Unobtainable: Yes Subjective Pt agitated/ moves upper and lower extremities, but no purposeful movement. Objective Last 24 Hour Vital Signs Date Time Temp Pulse Resp B/P Pulse Ox O2 Delivery O2 Flow Rate FiO2 10/02/16 19:17 96 31 30 10/02/16 18:12 156/97 10/02/16 17:06 97 37 30 10/02/16 16:00 30 10/02/16 16:00 97.3 99 25 156/97 100 Mechanical Ventilator 10/02/16 15:29 95 10/02/16 15:19 94 31 30 10/02/16 13:20 96 23 30 10/02/16 12:00 30 10/02/16 11:59 98.1 102 38 153/77 100 Mechanical Ventilator 30 10/02/16 11:25 96 10/02/16 11:05 98 31 30 10/02/16 10:15 Mechanical Ventilator 40 10/02/16 08:56 99 30 30 10/02/16 08:45 99 24 30 10/02/16 08:40 Mechanical Ventilator 40 10/02/16 08:00 30 10/02/16 08:00 97.8 99 28 153/103 100 Mechanical Ventilator 30.0 10/02/16 07:37 105 10/02/16 05:28 102 35 30 10/02/16 04:30 98.0 90 24 135/50 100 Mechanical Ventilator 30 10/02/16 04:00 30 10/02/16 03:55 93 10/02/16 03:19 94 32 30 10/02/16 01:15 91 21 30 10/02/16 00:00 98.7 90 24 129/50 96 Mechanical Ventilator 30 10/02/16 00:00 30 10/01/16 23:59 90 10/01/16 23:18 94 19 30 10/01/16 21:30 80 29 30 10/01/16 20:00 30 10/01/16 20:00 97.7 99 24 146/81 99 Mechanical Ventilator 30 General Appearance: WD/WN, obese, on vent Neck: other - trach site clean Rhythm: NSR Cardiovascular: normal rate, no gallop/murmur Respiratory/Chest: other - few rhonchi bilat, anteriorly Abdomen: non tender, soft, other - reducible umbilical hernia. + g tube Extremities: no swelling Intake and Output 10/01/16 10/02/16 19:00 07:00 Intake Total 804 ml 836 ml Balance 804 ml 836 ml IV Total 804 ml 536 ml Blood Product 300 ml # Bowel Movements 5 6 Laboratory Tests Test 10/02/16 03:45 White Blood Count 15.2 K/UL (4.8-10.8) H Red Blood Count 2.65 M/UL (4.70-6.10) L Hemoglobin 8.3 G/DL (14.2-18.0) L Hematocrit 25.7 % (42.0-52.0) L Mean Corpuscular Volume 97 FL (80-99) Mean Corpuscular Hemoglobin 31.2 PG (27.0-31.0) H Mean Corpuscular Hemoglobin Concent 32.2 G/DL (32.0-36.0) Red Cell Distribution Width 15.1 % (11.6-14.8) H Platelet Count 269 K/UL (150-450) Mean Platelet Volume 5.8 FL (6.5-10.1) L Neutrophils (%) (Auto) 72.3 % (45.0-75.0) Lymphocytes (%) (Auto) 9.8 % (20.0-45.0) L Monocytes (%) (Auto) 12.6 % (1.0-10.0) H Eosinophils (%) (Auto) 2.9 % (0.0-3.0) Basophils (%) (Auto) 2.4 % (0.0-2.0) H Sodium Level 142 mEQ/L (135-145) Potassium Level 4.1 mEQ/L (3.4-4.9) Chloride Level 95 mEQ/L (98-107) L Carbon Dioxide Level 25 mEQ/L (20-30) Anion Gap 22 (5-15) H Blood Urea Nitrogen 55 mg/dL (7-23) H Creatinine 5.3 mg/dL (0.7-1.2) H Estimat Glomerular Filtration Rate 10.8 mL/min (>60) Glucose Level 195 mg/dL (74-106) H Calcium Level 9.4 mg/dL (8.6-10.2) Phosphorus Level 5.8 mg/dL (2.5-4.8) H Iron Level 69 ug/dL (59-158) Total Iron Binding Capacity 105 ug/dL (250-400) L Percent Iron Saturation 66 % (15-50) H Unsaturated Iron Binding 36 ug/dL (112-346) L Microbiology Date/Time Source Procedure Growth Status 09/30/16 06:30 Stool Clostridium difficile Toxin Assay - Final Complete ANGEL MARCIAL Oct 02, 2016 19:57
[2016-10-02 20:00] VITALS: BP 133/55
[2016-10-02] MEDS: Dyna-Hex 2% Top Sol 8oz TOPIC SCH (20:49)
[2016-10-02] MEDS ORDERED: TPN IV SCH (21:00)
[2016-10-02] MEDS ORDERED: FAT EMULSION 20% IV SCH (21:00)
--- NOTE | 2016-10-02 22:47 | General Progress Note ---
Assessment/Plan Assessment/Plan Assessment - possible DM gastroparesis - Acute pancreatitis, presumed due to gallstone - Leukocytosis - encephalopathy - resp failure - DM - renal failure - Anemia, presumed due to renal failure Recommendations - PPI - Reglan / bethanecol - continue TPN - continue to follow amylase and lipase - will resume TF once amylase and lipase closer to resolution - abx per ID Subjective Allergies: Coded Allergies: NIACIN (Verified Allergy, Unknown, ITCHING, 01/30/12) Subjective uneventful day Amylase and lipase on the decline d/w family at bedside Objective Last 24 Hour Vital Signs Date Time Temp Pulse Resp B/P Pulse Ox O2 Delivery O2 Flow Rate FiO2 10/02/16 21:27 95 30 30 10/02/16 20:00 30 10/02/16 19:17 96 31 30 10/02/16 18:12 156/97 10/02/16 17:06 97 37 30 10/02/16 16:00 30 10/02/16 16:00 97.3 99 25 156/97 100 Mechanical Ventilator 10/02/16 15:29 95 10/02/16 15:19 94 31 30 10/02/16 13:20 96 23 30 10/02/16 12:00 30 10/02/16 11:59 98.1 102 38 153/77 100 Mechanical Ventilator 30 10/02/16 11:25 96 10/02/16 11:05 98 31 30 10/02/16 10:15 Mechanical Ventilator 40 10/02/16 08:56 99 30 30 10/02/16 08:45 99 24 30 10/02/16 08:40 Mechanical Ventilator 40 10/02/16 08:00 30 10/02/16 08:00 97.8 99 28 153/103 100 Mechanical Ventilator 30.0 10/02/16 07:37 105 10/02/16 05:28 102 35 30 10/02/16 04:30 98.0 90 24 135/50 100 Mechanical Ventilator 30 10/02/16 04:00 30 10/02/16 03:55 93 10/02/16 03:19 94 32 30 10/02/16 01:15 91 21 30 10/02/16 00:00 98.7 90 24 129/50 96 Mechanical Ventilator 30 10/02/16 00:00 30 10/01/16 23:59 90 10/01/16 23:18 94 19 30 Intake and Output 10/01/16 10/02/16 19:00 07:00 Intake Total 804 ml 836 ml Balance 804 ml 836 ml IV Total 804 ml 536 ml Blood Product 300 ml # Bowel Movements 5 6 Laboratory Tests 10/02/16 03:45: White Blood Count 15.2H, Red Blood Count 2.65L, Hemoglobin 8.3L, Hematocrit 25.7L, Mean Corpuscular Volume 97, Mean Corpuscular Hemoglobin 31.2H, Mean Corpuscular Hemoglobin Concent 32.2, Red Cell Distribution Width 15.1H, Platelet Count 269, Mean Platelet Volume 5.8L, Neutrophils (%) (Auto) 72.3, Lymphocytes (%) (Auto) 9.8L, Monocytes (%) (Auto) 12.6H, Eosinophils (%) (Auto) 2.9, Basophils (%) (Auto) 2.4H, Sodium Level 142, Potassium Level 4.1, Chloride Level 95L, Carbon Dioxide Level 25, Anion Gap 22H, Blood Urea Nitrogen 55H, Creatinine 5.3H, Estimat Glomerular Filtration Rate 10.8, Glucose Level 195H, Calcium Level 9.4, Phosphorus Level 5.8H, Iron Level 69, Total Iron Binding Capacity 105L, Percent Iron Saturation 66H, Unsaturated Iron Binding 36L Height (Feet): 5 Height (Inches): 9.00 Weight (Pounds): 179 Objective Intubated and unresponsive NCAT, (+)trach supple Coarse BS RR soft ND abdomen, (+) umbilical hernia w/o change, (+) GT no edema unresponsive ANNE CURRAN Oct 02, 2016 22:47
[2016-10-03] VITALS: BP 114/47
[2016-10-03 04:00] VITALS: BP 148/73
[2016-10-03 05:56] LABS: ALBUMIN/GLOBULIN RATIO 0.5 (1.0-2.7); CALCIUM 9.7 mg/dL (8.6-10.2); CREATININE 5.6 mg/dL (0.7-1.2); GLOMERULAR FILTRATION RATE 10.1 mL/min (>60); MAGNESIUM 1.9 mg/dL (1.7-2.5); PHOSPHORUS 6.5 mg/dL (2.5-4.8); TOTAL PROTEIN 7.2 g/dL (6.6-8.7)
[2016-10-03] MEDS: NovoLOG Insulin Flexpen SUBQ SCH ×3 (05:56→18:48)
[2016-10-03] MEDS: Metoclopramide 10mg/10ml Liq NG SCH ×3 (06:02→18:44)
[2016-10-03] MEDS: metroNIDAZOLE 500mg tab ORAL SCH ×3 (06:02→21:35)
[2016-10-03] MEDS: Piperacillin/Tazobactam 2.25 GM in D5W 55 ML IVPB SCH ×3 (06:02→21:35)
[2016-10-03 06:35] LABS: AMYLASE 476 U/L (10-110)
[2016-10-03 06:47] LABS: LIPASE 890 U/L (< 60)
[2016-10-03 08:00] VITALS: BP 137/71
[2016-10-03] MEDS: Heparin 5000 units/ml inj SUBQ SCH ×2 (09:00→20:47)
[2016-10-03] MEDS: Bethanechol 10mg Tab ORAL SCH ×3 (09:00→18:44)
[2016-10-03] MEDS ORDERED: Morphine Sulfate 2mg/ml Inj IVP ONE ×2 (09:15→10:40)
[2016-10-03] MEDS ORDERED: LORazepam Inj 2mg/ml 1ml IV ONE (09:15)
[2016-10-03] MEDS ORDERED: NS 275ml ONE (10:44)
[2016-10-03] MEDS ORDERED: Tubing IV Secondary IV ONE (10:44)
[2016-10-03] MEDS ORDERED: NS Irrig 1000ml ONE (10:44)
--- NOTE | 2016-10-03 11:26 | Infectious Diseases Prog Note ---
Assessment/Plan Assessment/Plan antibiotics : zosyn, flagyl A 1. enterobacter pneumonia /p rx 2. respiratory failure 3. renal failure 4. leucocytosis improving 5. s/p cardiac arrest 6. acute pancreatitis P 1. continue zosyn, flagyl 2. will follow up cultures Subjective ROS Limited/Unobtainable: Yes Allergies: Coded Allergies: NIACIN (Verified Allergy, Unknown, ITCHING, 01/30/12) Objective Vital Signs Last 24 Hour Vital Signs Date Time Temp Pulse Resp B/P Pulse Ox O2 Delivery O2 Flow Rate FiO2 10/03/16 09:28 96 26 30 10/03/16 08:00 30 10/03/16 08:00 97.9 99 27 137/71 100 Mechanical Ventilator 30 10/03/16 06:57 100 29 30 10/03/16 05:20 95 27 30 10/03/16 04:00 30 10/03/16 04:00 98.6 103 21 148/73 100 Mechanical Ventilator 10/03/16 04:00 101 10/03/16 03:00 101 30 30 10/03/16 01:30 102 35 30 10/03/16 00:00 100 10/03/16 00:00 98.2 97 20 114/47 99 Mechanical Ventilator 10/03/16 00:00 30 10/02/16 23:15 98 26 30 10/02/16 21:27 95 30 30 10/02/16 20:00 30 10/02/16 20:00 98.0 97 22 133/55 99 Mechanical Ventilator 30 10/02/16 20:00 96 10/02/16 19:17 96 31 30 10/02/16 18:12 156/97 10/02/16 17:06 97 37 30 10/02/16 16:00 30 10/02/16 16:00 97.3 99 25 156/97 100 Mechanical Ventilator 10/02/16 15:29 95 10/02/16 15:19 94 31 30 10/02/16 13:20 96 23 30 10/02/16 12:00 30 10/02/16 11:59 98.1 102 38 153/77 100 Mechanical Ventilator 30 Height (Feet): 5 Height (Inches): 9.00 Weight (Pounds): 173 HEENT: status post trach Respiratory/Chest: lungs clear Cardiovascular: normal rate, regular rhythm, no gallop/murmur Abdomen: soft, non tender, other - GT Extremities: no edema Laboratory Tests Test 10/03/16 04:05 Sodium Level 142 mEQ/L (135-145) Potassium Level 4.0 mEQ/L (3.4-4.9) Chloride Level 94 mEQ/L (98-107) L Carbon Dioxide Level 25 mEQ/L (20-30) Anion Gap 23 (5-15) H Blood Urea Nitrogen 60 mg/dL (7-23) H Creatinine 5.6 mg/dL (0.7-1.2) H Estimat Glomerular Filtration Rate 10.1 mL/min (>60) Glucose Level 115 mg/dL (74-106) H Calcium Level 9.7 mg/dL (8.6-10.2) Phosphorus Level 6.5 mg/dL (2.5-4.8) H Magnesium Level 1.9 mg/dL (1.7-2.5) Total Bilirubin 0.3 mg/dL (0.0-1.2) Aspartate Amino Transf (AST/SGOT) 33 U/L (5-40) Alanine Aminotransferase (ALT/SGPT) 11 U/L (3-41) Alkaline Phosphatase 142 U/L (40-129) H Total Protein 7.2 g/dL (6.6-8.7) Albumin 2.5 g/dL (3.5-5.2) L Globulin 4.7 g/dL Albumin/Globulin Ratio 0.5 (1.0-2.7) L Amylase Level 476 U/L (10-110) H Lipase 890 U/L (< 60) H LEWIS ADAMS Oct 03, 2016 11:26
--- NOTE | 2016-10-03 11:40 | Diagnostic Imaging Report ---
Indication: VOMITING Technique: Supine view of the abdomen Comparison: 09/21/2016 Findings: Interim removal of previously demonstrated nasogastric tube, interim placement of a gastrostomy. The tip of a dialysis catheter is seen in the high right atrium. The bowel gas pattern is essentially unremarkable. A 2 slightly prominent small bowel loops are seen in the left midabdomen. No unusual masses or calcifications Impression: Findings as noted. No definite acute process
[2016-10-03 12:00] VITALS: BP 140/69
[2016-10-03] MEDS: Valproic Acid 250mg/5ml Liquid GT SCH ×2 (12:23→20:46)
[2016-10-03] MEDS: Phenytoin Susp 100mg/4ml GT SCH ×2 (12:23→20:46)
[2016-10-03] MEDS: Minoxidil 10mg tab GT SCH ×2 (12:24→18:44)
--- NOTE | 2016-10-03 13:55 | Pulmonology Progress Note ---
Assessment/Plan Assessment/Plan 1. Status post cardiac arrest. 2. Renal failure with hyperkalemia. 3. Respiratory failure. 4. Anoxic encephalopathy. 5. Status epilepticus 6. Coronary artery disease. 7. History of cardiomyopathy. 8. Diabetes. 9. Hypertension. 10 Pancreatitis no weaning attempts trach and vent dependent cont TPN disc w family at bedside Subjective ROS Limited/Unobtainable: Yes Constitutional: Denies: fever Allergies: Coded Allergies: NIACIN (Verified Allergy, Unknown, ITCHING, 01/30/12) Subjective agitated Objective Last 24 Hour Vital Signs Date Time Temp Pulse Resp B/P Pulse Ox O2 Delivery O2 Flow Rate FiO2 10/03/16 13:29 86 18 30 10/03/16 12:24 140/69 10/03/16 12:24 98 140/69 10/03/16 12:00 30 10/03/16 12:00 98.2 98 27 140/69 100 Mechanical Ventilator 30 10/03/16 12:00 100 10/03/16 11:45 89 18 30 10/03/16 09:28 96 26 30 10/03/16 08:00 104 10/03/16 08:00 30 10/03/16 08:00 97.9 99 27 137/71 100 Mechanical Ventilator 30 10/03/16 06:57 100 29 30 10/03/16 05:20 95 27 30 10/03/16 04:00 30 10/03/16 04:00 98.6 103 21 148/73 100 Mechanical Ventilator 10/03/16 04:00 101 10/03/16 03:00 101 30 30 10/03/16 01:30 102 35 30 10/03/16 00:00 100 10/03/16 00:00 98.2 97 20 114/47 99 Mechanical Ventilator 10/03/16 00:00 30 10/02/16 23:15 98 26 30 10/02/16 21:27 95 30 30 10/02/16 20:00 30 10/02/16 20:00 98.0 97 22 133/55 99 Mechanical Ventilator 30 10/02/16 20:00 96 10/02/16 19:17 96 31 30 10/02/16 18:12 156/97 10/02/16 17:06 97 37 30 10/02/16 16:00 30 10/02/16 16:00 97.3 99 25 156/97 100 Mechanical Ventilator 10/02/16 15:29 95 10/02/16 15:19 94 31 30 Intake and Output 10/02/16 10/03/16 19:00 07:00 Intake Total 1039 ml 67 ml Output Total 680 ml Balance 359 ml 67 ml IV Total 979 ml Tube Feeding 67 ml Other 60 ml Hemodialysis UF 680 ml # Bowel Movements 6 5 Objective poorly responsive General Appearance: no acute distress HEENT: atraumatic Respiratory/Chest: lungs clear Cardiovascular: normal rate Laboratory Tests 10/03/16 04:05: Sodium Level 142, Potassium Level 4.0, Chloride Level 94L, Carbon Dioxide Level 25, Anion Gap 23H, Blood Urea Nitrogen 60H, Creatinine 5.6H, Estimat Glomerular Filtration Rate 10.1, Glucose Level 115H, Calcium Level 9.7, Phosphorus Level 6.5H, Magnesium Level 1.9, Total Bilirubin 0.3, Aspartate Amino Transf (AST/SGOT ) 33, Alanine Aminotransferase (ALT/SGPT) 11, Alkaline Phosphatase 142H, Total Protein 7.2, Albumin 2.5L, Globulin 4.7, Albumin/Globulin Ratio 0.5L, Amylase Level 476H, Lipase 890H Current Medications Medications (Trade) Dose Ordered Sig/Mark Route PRN Reason Start Time Stop Time Status Last Admin Dose Admin Acetaminophen (Tylenol) 650 mg Q4H PRN ORAL Mild Pain (Pain Scale 1-3) 09/26/16 11:00 10/26/16 10:59 10/02/16 10:57 Amlodipine Besylate (Norvasc) 10 mg DAILY GT 09/27/16 09:00 10/27/16 08:59 10/03/16 12:24 Bethanechol Chloride (Urecholine) 10 mg THREE TIMES A DAY ORAL 09/26/16 13:00 10/26/16 12:59 10/03/16 12:24 Chlorhexidine Gluconate (Lakshmi-Hex 2%) 1 applic Q24H TOPIC 09/26/16 21:00 10/26/16 20:59 10/02/16 20:49 Dextrose (D10w) 1,000 ml @ 0 mls/hr Q24H PRN IV PN interrupted or unavailable 09/28/16 21:00 10/28/16 20:59 Dextrose STAT PRN IV Hypoglycemia 09/28/16 12:00 10/28/16 11:59 Epoetin Kiko (Procrit (for ESRD on dialysis)) 10,000 units THU-THU-THU SUBQ 09/29/16 21:00 10/29/16 20:59 10/01/16 21:31 Fat Emulsion Intravenous 240 ml/Amino Acids/ Electrolytes/ Dextrose 1,608 ml @ 67 mls/hr Q24H IV 10/02/16 21:00 10/03/16 20:59 10/02/16 21:49 Fat Emulsion Intravenous/Amino Acids/ Electrolytes/ Dextrose (Intralipids/Tpn) 1,608 ml @ 67 mls/hr Q24H IV 10/03/16 21:00 11/02/16 20:59 Heparin Sodium (Porcine) (Heparin 5000 units/ml) 5,000 units EVERY 12 HOURS SUBQ 09/26/16 21:00 10/26/16 20:59 10/02/16 20:37 Insulin Aspart (NovoLOG) EVERY 6 HOURS SUBQ 09/26/16 12:00 10/26/16 11:59 10/03/16 05:56 Lansoprazole (Prevacid) 30 mg DAILY GT 09/27/16 09:00 10/27/16 08:59 10/03/16 12:24 Lorazepam 1 mg 1 mg DAILYPRN PRN IV agitation prior to HD 10/02/16 10:30 10/09/16 10:29 10/02/16 10:57 Metoclopramide HCl (Reglan) 5 mg Q6HR NG 09/26/16 12:00 10/26/16 11:59 10/03/16 12:25 Metronidazole (Flagyl) 500 mg EVERY 8 HOURS ORAL 09/30/16 14:00 10/07/16 13:59 10/03/16 06:02 Minoxidil (Loniten) 15 mg BID GT 09/26/16 18:00 10/26/16 17:59 10/03/16 12:24 Phenytoin (Dilantin) 300 mg Q12HR GT 09/26/16 21:00 10/26/16 20:59 10/03/16 12:23 Phenytoin/Sodium Chloride (Dilantin/Sodium Chloride) 120 ml @ 120 mls/hr POSTHD IVPB 09/26/16 21:00 10/26/16 20:59 10/02/16 16:24 Phytonadione (Vitamin K) 10 mg QWEEK SUBQ 09/28/16 21:00 10/28/16 20:59 09/28/16 21:48 Piperacillin Sod/ Tazobactam Sod/ Dextrose (Zosyn/D5W) 55 ml @ 110 mls/hr Q8HR IVPB 09/28/16 14:00 10/07/16 13:59 10/03/16 06:02 Polyethylene Glycol (Miralax) 17 gm DAILYPRN PRN ORAL Constipation 09/26/16 23:00 10/26/16 22:59 Valproic Acid (Depakene) 1,000 mg POSTHD GT 09/26/16 11:00 10/26/16 10:59 10/02/16 19:10 Valproic Acid 1500 mg 1,500 mg Q12HR GT 09/26/16 21:00 10/26/16 20:59 10/03/16 12:23 CHLOE ESQUIVEL Oct 03, 2016 13:55
--- NOTE | 2016-10-03 14:46 | Nephrology Progress Note ---
Assessment/Plan Problem List: (1) ESRD (end stage renal disease) (2) Anoxic encephalopathy syndrome (3) Respiratory failure with hypoxia (4) CHF (congestive heart failure) (5) HTN (hypertension) (6) Acute pancreatitis Assessment: better (7) Pneumonia Assessment: enterobacter Plan HD in AM Cont TPN Vent support follow labs abxs Discussed with RN and Pharmacist Discussed with family Refer to Jad check Hida scan Subjective Subjective In NAD Objective Objective Last 24 Hour Vital Signs Date Time Temp Pulse Resp B/P Pulse Ox O2 Delivery O2 Flow Rate FiO2 10/03/16 13:29 86 18 30 10/03/16 12:24 140/69 10/03/16 12:24 98 140/69 10/03/16 12:00 30 10/03/16 12:00 98.2 98 27 140/69 100 Mechanical Ventilator 30 10/03/16 12:00 100 10/03/16 11:45 89 18 30 10/03/16 09:28 96 26 30 10/03/16 08:00 104 10/03/16 08:00 30 10/03/16 08:00 97.9 99 27 137/71 100 Mechanical Ventilator 30 10/03/16 06:57 100 29 30 10/03/16 05:20 95 27 30 10/03/16 04:00 30 10/03/16 04:00 98.6 103 21 148/73 100 Mechanical Ventilator 10/03/16 04:00 101 10/03/16 03:00 101 30 30 10/03/16 01:30 102 35 30 10/03/16 00:00 100 10/03/16 00:00 98.2 97 20 114/47 99 Mechanical Ventilator 10/03/16 00:00 30 10/02/16 23:15 98 26 30 10/02/16 21:27 95 30 30 10/02/16 20:00 30 10/02/16 20:00 98.0 97 22 133/55 99 Mechanical Ventilator 30 10/02/16 20:00 96 10/02/16 19:17 96 31 30 10/02/16 18:12 156/97 10/02/16 17:06 97 37 30 10/02/16 16:00 30 10/02/16 16:00 97.3 99 25 156/97 100 Mechanical Ventilator 10/02/16 15:29 95 10/02/16 15:19 94 31 30 Intake and Output 10/02/16 10/03/16 19:00 07:00 Intake Total 1039 ml 67 ml Output Total 680 ml Balance 359 ml 67 ml IV Total 979 ml Tube Feeding 67 ml Other 60 ml Hemodialysis UF 680 ml # Bowel Movements 6 5 Laboratory Tests 10/03/16 04:05: Sodium Level 142, Potassium Level 4.0, Chloride Level 94L, Carbon Dioxide Level 25, Anion Gap 23H, Blood Urea Nitrogen 60H, Creatinine 5.6H, Estimat Glomerular Filtration Rate 10.1, Glucose Level 115H, Calcium Level 9.7, Phosphorus Level 6.5H, Magnesium Level 1.9, Total Bilirubin 0.3, Aspartate Amino Transf (AST/SGOT ) 33, Alanine Aminotransferase (ALT/SGPT) 11, Alkaline Phosphatase 142H, Total Protein 7.2, Albumin 2.5L, Globulin 4.7, Albumin/Globulin Ratio 0.5L, Amylase Level 476H, Lipase 890H Height (Feet): 5 Height (Inches): 9.00 Weight (Pounds): 173 Cardiovascular: normal rate Respiratory/Chest: lungs clear Extremities: other - no edema CANDICE BREAUX Oct 03, 2016 14:46
[2016-10-03 16:00] VITALS: BP 127/85
[2016-10-03 16:27] LABS: BASOPHILS % (AUTO) 3.8 % (0.0-2.0); EOSINOPHILS % (AUTO) 1.7 % (0.0-3.0); LYMPHOCYTES % (AUTO) 9.8 % (20.0-45.0); MEAN CORPUSCULAR HEMOGLOBIN 33.2 PG (27.0-31.0); MEAN CORPUSCULAR HGB CONC 34.8 G/DL (32.0-36.0); MEAN CORPUSCULAR VOLUME 95 FL (80-99); MEAN PLATELET VOLUME 5.3 FL (6.5-10.1); MONOCYTES % (AUTO) 11.8 % (1.0-10.0); NEUTROPHILS % (AUTO) 72.9 % (45.0-75.0); PLATELET COUNT 277 K/UL (150-450); RED BLOOD COUNT 2.41 M/UL (4.70-6.10); RED CELL DISTRIBUTION WIDTH 15.8 % (11.6-14.8); WHITE BLOOD COUNT 17.8 K/UL (4.8-10.8)
--- NOTE | 2016-10-03 18:13 | Internal Med Progress Note ---
Subjective Date of Service: Oct 03, 2016 Physician Name Filiberto Clancy Attending Physician Harrison Delatorre Current Medications Medications (Trade) Dose Ordered Sig/Mark Route PRN Reason Start Time Stop Time Status Last Admin Dose Admin Acetaminophen (Tylenol) 650 mg Q4H PRN ORAL Mild Pain (Pain Scale 1-3) 09/26/16 11:00 10/26/16 10:59 10/02/16 10:57 Amlodipine Besylate (Norvasc) 10 mg DAILY GT 09/27/16 09:00 10/27/16 08:59 10/03/16 12:24 Bethanechol Chloride (Urecholine) 10 mg THREE TIMES A DAY ORAL 09/26/16 13:00 10/26/16 12:59 10/03/16 12:24 Chlorhexidine Gluconate (Lakshmi-Hex 2%) 1 applic Q24H TOPIC 09/26/16 21:00 10/26/16 20:59 10/02/16 20:49 Dextrose (D10w) 1,000 ml @ 0 mls/hr Q24H PRN IV PN interrupted or unavailable 09/28/16 21:00 10/28/16 20:59 Dextrose STAT PRN IV Hypoglycemia 09/28/16 12:00 10/28/16 11:59 Epoetin Kiko (Procrit (for ESRD on dialysis)) 10,000 units THU-THU-THU SUBQ 09/29/16 21:00 10/29/16 20:59 10/01/16 21:31 Fat Emulsion Intravenous 240 ml/Amino Acids/ Electrolytes/ Dextrose 1,608 ml @ 67 mls/hr Q24H IV 10/02/16 21:00 10/03/16 20:59 10/02/16 21:49 Fat Emulsion Intravenous 240 ml/Amino Acids/ Electrolytes/ Dextrose 1,608 ml @ 67 mls/hr Q24H IV 10/03/16 21:00 11/02/16 20:59 Heparin Sodium (Porcine) (Heparin 5000 units/ml) 5,000 units EVERY 12 HOURS SUBQ 09/26/16 21:00 10/26/16 20:59 10/02/16 20:37 Heparin Sodium (Porcine) (Heparin 5000 units/ml) 5,000 units POSTHD INJ 10/04/16 06:00 10/04/16 23:59 Heparin Sodium (Porcine) (Heparin Sod 1000 units/ml 10ml) 2,000 unit ONCE IV 10/04/16 06:00 10/04/16 23:59 Insulin Aspart (NovoLOG) EVERY 6 HOURS SUBQ 09/26/16 12:00 10/26/16 11:59 10/03/16 05:56 Lansoprazole (Prevacid) 30 mg DAILY GT 09/27/16 09:00 10/27/16 08:59 10/03/16 12:24 Lorazepam 1 mg 1 mg DAILYPRN PRN IV agitation prior to HD 10/02/16 10:30 10/09/16 10:29 10/02/16 10:57 Metoclopramide HCl (Reglan) 5 mg Q6HR NG 09/26/16 12:00 10/26/16 11:59 10/03/16 12:25 Metronidazole (Flagyl) 500 mg EVERY 8 HOURS ORAL 09/30/16 14:00 10/07/16 13:59 10/03/16 14:53 Minoxidil (Loniten) 15 mg BID GT 09/26/16 18:00 10/26/16 17:59 10/03/16 12:24 Phenytoin (Dilantin) 300 mg Q12HR GT 09/26/16 21:00 10/26/16 20:59 10/03/16 12:23 Phenytoin/Sodium Chloride (Dilantin/Sodium Chloride) 120 ml @ 120 mls/hr POSTHD IVPB 09/26/16 21:00 10/26/16 20:59 10/02/16 16:24 Phytonadione (Vitamin K) 10 mg QWEEK SUBQ 09/28/16 21:00 10/28/16 20:59 09/28/16 21:48 Piperacillin Sod/ Tazobactam Sod/ Dextrose (Zosyn/D5W) 55 ml @ 110 mls/hr Q8HR IVPB 09/28/16 14:00 10/07/16 13:59 10/03/16 14:52 Polyethylene Glycol (Miralax) 17 gm DAILYPRN PRN ORAL Constipation 09/26/16 23:00 10/26/16 22:59 Sodium Chloride (Sodium Chloride 1000ml bag) 1,000 ml @ 500 mls/hr Q2H PRN IVLG sbp<90 during hd 10/04/16 06:00 10/04/16 23:59 Valproic Acid (Depakene) 1,000 mg POSTHD GT 09/26/16 11:00 10/26/16 10:59 10/02/16 19:10 Valproic Acid 1500 mg 1,500 mg Q12HR GT 09/26/16 21:00 10/26/16 20:59 10/03/16 12:23 Allergies: Coded Allergies: NIACIN (Verified Allergy, Unknown, ITCHING, 01/30/12) Subjective 71 YO M admitted with volume overload and respiratory failure. S/P cardiopulmonary arrest. WILD. Intubated. Pancreatitis resolving. Cover for Int Brad-Dr Vail. Objective Last Vital Signs Date Time Temp Pulse Resp B/P Pulse Ox O2 Delivery O2 Flow Rate FiO2 10/03/16 16:33 84 18 30 10/03/16 16:00 97.9 127/85 100 Mechanical Ventilator 10/02/16 08:00 30.0 Laboratory Tests Test 10/03/16 04:05 10/03/16 16:05 Sodium Level 142 mEQ/L (135-145) Potassium Level 4.0 mEQ/L (3.4-4.9) Chloride Level 94 mEQ/L (98-107) L Carbon Dioxide Level 25 mEQ/L (20-30) Anion Gap 23 (5-15) H Blood Urea Nitrogen 60 mg/dL (7-23) H Creatinine 5.6 mg/dL (0.7-1.2) H Estimat Glomerular Filtration Rate 10.1 mL/min (>60) Glucose Level 115 mg/dL (74-106) H Calcium Level 9.7 mg/dL (8.6-10.2) Phosphorus Level 6.5 mg/dL (2.5-4.8) H Magnesium Level 1.9 mg/dL (1.7-2.5) Total Bilirubin 0.3 mg/dL (0.0-1.2) Aspartate Amino Transf (AST/SGOT) 33 U/L (5-40) Alanine Aminotransferase (ALT/SGPT) 11 U/L (3-41) Alkaline Phosphatase 142 U/L (40-129) H Total Protein 7.2 g/dL (6.6-8.7) Albumin 2.5 g/dL (3.5-5.2) L Globulin 4.7 g/dL Albumin/Globulin Ratio 0.5 (1.0-2.7) L Amylase Level 476 U/L (10-110) H Lipase 890 U/L (< 60) H White Blood Count 17.8 K/UL (4.8-10.8) H Red Blood Count 2.41 M/UL (4.70-6.10) L Hemoglobin 8.0 G/DL (14.2-18.0) L Hematocrit 23.0 % (42.0-52.0) L Mean Corpuscular Volume 95 FL (80-99) Mean Corpuscular Hemoglobin 33.2 PG (27.0-31.0) H Mean Corpuscular Hemoglobin Concent 34.8 G/DL (32.0-36.0) Red Cell Distribution Width 15.8 % (11.6-14.8) H Platelet Count 277 K/UL (150-450) Mean Platelet Volume 5.3 FL (6.5-10.1) L Neutrophils (%) (Auto) 72.9 % (45.0-75.0) Lymphocytes (%) (Auto) 9.8 % (20.0-45.0) L Monocytes (%) (Auto) 11.8 % (1.0-10.0) H Eosinophils (%) (Auto) 1.7 % (0.0-3.0) Basophils (%) (Auto) 3.8 % (0.0-2.0) H Intake and Output 10/02/16 10/03/16 19:00 07:00 Intake Total 1039 ml 134 ml Output Total 680 ml Balance 359 ml 134 ml IV Total 979 ml 67 ml Tube Feeding 67 ml Other 60 ml Hemodialysis UF 680 ml # Bowel Movements 6 5 Objective General Appearance: WD/WN, lethargic EENT: PERRL/EOMI, normal ENT inspection, TMs normal Neck: non-tender, normal alignment, supple Cardiovascular: normal peripheral pulses, normal rate, regular rhythm, no gallop/murmur, no JVD Respiratory/Chest: Mech vent; chest wall non-tender, crackles/rales, rhonchi - bilaterally, expiratory wheezing Abdomen: normal bowel sounds, non tender, soft, no organomegaly Skin: normal pigmentation, warm/dry Assessment/Plan Problem List: (1) HTN (hypertension) Assessment & Plan: Cont amlodipine. (2) Hyperkalemia (3) Respiratory failure with hypoxia Assessment & Plan: Intubated and sedated. S/P Tracheostomy 09/24/16. (4) ESRD (end stage renal disease) Assessment & Plan: See nephrology note. Last Hemodialysis 10/02/16 per nephrology (5) CHF (congestive heart failure) (6) Diabetes mellitus Assessment & Plan: Cont novolog sliding scale. 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 (9) Anoxic encephalopathy syndrome Assessment & Plan: See neruo note. (10) Enterobacter sepsis (11) Pneumonia Assessment & Plan: Enterobacter. Cont zosyn and flagyl per ID (12) Anemia (13) Dysphagia Assessment & Plan: S/P PEG 09/23/16. (14) Cholecystitis, acute Assessment & Plan: See Surgery note. Not surgical candidate at this time. Continue zosyn and flagyl per ID (15) Pancreatitis, acute Assessment & Plan: Improving amylase and lipase. See GI note. Hold tube feeds ; continue TPN. (16) Fever Assessment & Plan: See ID note. Status: progressing Assessment/Plan Discharge to [facility] when accepted-see case management note. FILIBERTO CLANCY Oct 03, 2016 18:12
[2016-10-03 20:00] VITALS: BP 112/44
[2016-10-03] MEDS: Dyna-Hex 2% Top Sol 8oz TOPIC SCH (20:47)
[2016-10-03] MEDS: Epogen (for ESRD on dialysis) SUBQ SCH (20:49)
[2016-10-03] MEDS: FAT EMULSION 20% IV SCH (21:25)
[2016-10-03] MEDS: TPN IV SCH (21:25)
--- NOTE | 2016-10-03 21:45 | General Progress Note ---
Assessment/Plan Assessment/Plan Assessment - UGIB - possible DM gastroparesis - Acute pancreatitis, presumed due to gallstone - Leukocytosis - encephalopathy - resp failure - DM - renal failure - Anemia, presumed due to renal failure, slightly lower after GIB Recommendations - EGD in am - PPI - transfuse - Reglan / bethanecol - continue TPN - continue to follow amylase and lipase - will resume TF once amylase and lipase closer to resolution - abx per ID Subjective Allergies: Coded Allergies: NIACIN (Verified Allergy, Unknown, ITCHING, 01/30/12) Subjective Amylase and lipase on the decline noted to have dark stool and dark GT aspirate discussed with ted Dania re doing EGD and transfusing blood agreed to both Objective Last 24 Hour Vital Signs Date Time Temp Pulse Resp B/P Pulse Ox O2 Delivery O2 Flow Rate FiO2 10/03/16 20:49 97 28 30 10/03/16 19:05 100 33 30 10/03/16 18:44 127/85 10/03/16 16:33 84 18 30 10/03/16 16:00 95 10/03/16 16:00 97.9 95 24 127/85 100 Mechanical Ventilator 30 10/03/16 16:00 30 10/03/16 15:01 87 18 30 10/03/16 13:29 86 18 30 10/03/16 12:24 140/69 10/03/16 12:24 98 140/69 10/03/16 12:00 30 10/03/16 12:00 98.2 98 27 140/69 100 Mechanical Ventilator 30 10/03/16 12:00 100 10/03/16 11:45 89 18 30 10/03/16 09:28 96 26 30 10/03/16 08:00 104 10/03/16 08:00 30 10/03/16 08:00 97.9 99 27 137/71 100 Mechanical Ventilator 30 10/03/16 06:57 100 29 30 10/03/16 05:20 95 27 30 10/03/16 04:00 30 10/03/16 04:00 98.6 103 21 148/73 100 Mechanical Ventilator 10/03/16 04:00 101 10/03/16 03:00 101 30 30 10/03/16 01:30 102 35 30 10/03/16 00:00 100 10/03/16 00:00 98.2 97 20 114/47 99 Mechanical Ventilator 10/03/16 00:00 30 10/02/16 23:15 98 26 30 Intake and Output 10/02/16 10/03/16 19:00 07:00 Intake Total 1039 ml 134 ml Output Total 680 ml Balance 359 ml 134 ml IV Total 979 ml 67 ml Tube Feeding 67 ml Other 60 ml Hemodialysis UF 680 ml # Bowel Movements 6 5 Laboratory Tests 10/03/16 04:05: Sodium Level 142, Potassium Level 4.0, Chloride Level 94L, Carbon Dioxide Level 25, Anion Gap 23H, Blood Urea Nitrogen 60H, Creatinine 5.6H, Estimat Glomerular Filtration Rate 10.1, Glucose Level 115H, Calcium Level 9.7, Phosphorus Level 6.5H, Magnesium Level 1.9, Total Bilirubin 0.3, Aspartate Amino Transf (AST/SGOT ) 33, Alanine Aminotransferase (ALT/SGPT) 11, Alkaline Phosphatase 142H, Total Protein 7.2, Albumin 2.5L, Globulin 4.7, Albumin/Globulin Ratio 0.5L, Amylase Level 476H, Lipase 890H 10/03/16 16:05: White Blood Count 17.8H, Red Blood Count 2.41L, Hemoglobin 8.0L, Hematocrit 23.0L, Mean Corpuscular Volume 95, Mean Corpuscular Hemoglobin 33.2H, Mean Corpuscular Hemoglobin Concent 34.8, Red Cell Distribution Width 15.8H, Platelet Count 277, Mean Platelet Volume 5.3L, Neutrophils (%) (Auto) 72.9, Lymphocytes (%) (Auto) 9.8L, Monocytes (%) (Auto) 11.8H, Eosinophils (%) (Auto) 1.7, Basophils (%) (Auto) 3.8H Height (Feet): 5 Height (Inches): 9.00 Weight (Pounds): 173 Objective Intubated and unresponsive NCAT, (+)trach supple Coarse BS RR soft ND abdomen, (+) umbilical hernia w/o change, (+) GT no edema unresponsive ANNE CURRAN Oct 03, 2016 21:45
[2016-10-04] VITALS (9 sets, daily range): BP systolic 108–151; BP diastolic 42–69
[2016-10-04] MEDS: Metoclopramide 10mg/10ml Liq NG SCH ×5 (00:17→23:39)
--- NOTE | 2016-10-04 00:50 | Wound Nurse Progress Note ---
Wound RN Progress Note Wound Consult #1 perineal chemical burn with erosion. noted decrease in perineal erosion current treatment is effective. #2 left buttocks stage II pressure ulcer. Resolving. Will cont same treatment #3 right sacral stage II pressure ulcer. Resolving. Will cont same treatment #4 right buttock stage II pressure ulcer. Resolving. Will cont same treatment #5 right lower buttocks stage II pressure ulcer. No deterioration noted at this time will cont same treatment Recommendation. - Local wound care as ordered. -Apply low air loss SPR mattress. -Keep clean and dry. -Turn and reposition. -Optimize nutrition. -Avoid shear and friction. -Heel protectors. -Offload heels and feet. -Assess and notify MD for any change of condition to skin noted. DEREK MENENDEZ RN Oct 04, 2016 00:50
[2016-10-04] MEDS ORDERED: Heparin Sod 1000 units/ml 10ml IV SCH (06:00)
[2016-10-04] MEDS: NovoLOG Insulin Flexpen SUBQ SCH ×5 (06:00→23:44)
[2016-10-04] MEDS ORDERED: Heparin 5000 units/ml inj INJ SCH (06:00)
[2016-10-04] MEDS: metroNIDAZOLE 500mg tab ORAL SCH ×3 (06:09→21:09)
[2016-10-04] MEDS: Piperacillin/Tazobactam 2.25 GM in D5W 55 ML IVPB SCH ×3 (06:09→21:12)
[2016-10-04] MEDS: LORazepam Inj 2mg/ml 1ml IV PRN (08:14)
[2016-10-04] MEDS: Heparin 5000 units/ml inj SUBQ SCH ×2 (09:00→21:11)
[2016-10-04] MEDS: Minoxidil 10mg tab GT SCH ×2 (09:00→18:04)
[2016-10-04] MEDS: Bethanechol 10mg Tab ORAL SCH ×3 (09:00→18:04)
--- NOTE | 2016-10-04 09:58 | Cardiology Progress Note ---
Assessment/Plan Assessment/Plan cardiopulm arrest anoxic encephalopathy esrd on hd noncompliant with dialysis htn chronic diastolic failure hx cad status epilepticus fever UGIB possible DM gastroparesis Acute pancreatitis, presumed due to gallstone pancretic enzyme on dwon trend awiat dialysis bp seems on the lower end of normal awiat egd as ;planned hgb stable has asitter as apprently at times agitated Subjective ROS Limited/Unobtainable: Yes Subjective on vent not comminicative not responsive Objective Last 24 Hour Vital Signs Date Time Temp Pulse Resp B/P Pulse Ox O2 Delivery O2 Flow Rate FiO2 10/04/16 09:22 93 33 30 10/04/16 08:00 30 10/04/16 08:00 97.9 94 25 108/52 100 Mechanical Ventilator 30 10/04/16 07:21 104 31 30 10/04/16 05:15 98 35 30 10/04/16 04:00 30 10/04/16 04:00 98.3 98 28 122/50 100 Mechanical Ventilator 30 10/04/16 04:00 95 10/04/16 03:11 95 19 30 10/04/16 01:10 94 24 30 10/04/16 00:38 98.2 98 27 113/42 100 Mechanical Ventilator 30 10/04/16 00:00 30 10/04/16 00:00 98 10/03/16 22:33 99 24 30 10/03/16 20:49 97 28 30 10/03/16 20:00 30 10/03/16 20:00 99.6 101 27 112/44 100 Mechanical Ventilator 10/03/16 20:00 97 10/03/16 19:05 100 33 30 10/03/16 18:44 127/85 10/03/16 16:33 84 18 30 10/03/16 16:00 95 10/03/16 16:00 97.9 95 24 127/85 100 Mechanical Ventilator 30 10/03/16 16:00 30 10/03/16 15:01 87 18 30 10/03/16 13:29 86 18 30 10/03/16 12:24 140/69 10/03/16 12:24 98 140/69 10/03/16 12:00 30 10/03/16 12:00 98.2 98 27 140/69 100 Mechanical Ventilator 30 10/03/16 12:00 100 10/03/16 11:45 89 18 30 General Appearance: no apparent distress, on vent Cardiovascular: normal rate, regular rhythm Respiratory/Chest: lungs clear Abdomen: non tender Extremities: non-tender, no swelling Intake and Output 10/03/16 10/04/16 19:00 07:00 Intake Total 959 ml 1147 ml Balance 959 ml 1147 ml Free Water 100 ml IV Total 859 ml 847 ml Blood Product 300 ml # Voids 3 # Bowel Movements 2 5 Laboratory Tests Test 10/03/16 16:05 White Blood Count 17.8 K/UL (4.8-10.8) H Red Blood Count 2.41 M/UL (4.70-6.10) L Hemoglobin 8.0 G/DL (14.2-18.0) L Hematocrit 23.0 % (42.0-52.0) L Mean Corpuscular Volume 95 FL (80-99) Mean Corpuscular Hemoglobin 33.2 PG (27.0-31.0) H Mean Corpuscular Hemoglobin Concent 34.8 G/DL (32.0-36.0) Red Cell Distribution Width 15.8 % (11.6-14.8) H Platelet Count 277 K/UL (150-450) Mean Platelet Volume 5.3 FL (6.5-10.1) L Neutrophils (%) (Auto) 72.9 % (45.0-75.0) Lymphocytes (%) (Auto) 9.8 % (20.0-45.0) L Monocytes (%) (Auto) 11.8 % (1.0-10.0) H Eosinophils (%) (Auto) 1.7 % (0.0-3.0) Basophils (%) (Auto) 3.8 % (0.0-2.0) H HUSSEIN CAGE Oct 04, 2016 09:58
[2016-10-04] MEDS ORDERED: Propofol 10mg/ml 20ml IV ONE (10:00)
--- NOTE | 2016-10-04 10:07 | Anethesia Preoperative Eval ---
Anesthesia Pre-op PMH/ROS General Date of Evaluation: Oct 04, 2016 Time of Evaluation: 10:06 Anesthesiologist: Richie ASA Score: ASA 4 Mallampati Score Class I : Soft palate, uvula, fauces, pillars visible Class II: Soft palate, uvula, fauces visible Class III: Soft palate, base of uvula visible Class IV: Only hard plate visible Mallampati Classification: Class III Surgeon: Bhumi Diagnosis: GI bleed Surgical Procedure: EGD Anesthesia History: none Family History: no anesthesia problems Allergies: Coded Allergies: NIACIN (Verified Allergy, Unknown, ITCHING, 01/30/12) Past Medical History Cardiovascular: Reports: HTN, other - CHF, Denies: CAD, [place], arrhythmia, valve dz Pulmonary: Reports: other - Resp. failure vent dependent, Denies: COPD, ASHLIE, asthma Gastrointestinal/Genitourinary: Reports: ESRD - on HD, other - peg tube in place Neurologic/Psychiatric: Reports: dementia, other - encephalopathy, Denies: CVA, TIA, depression/anxiety Endocrine: Reports: DM, Denies: hypothyroidism, other, steroids HEENT: Denies: KAW (L), KAW (R), cataract (L), cataract (R), glaucoma, other Hematology/Immune: Reports: anemia, Denies: DVT, bleeding disorder, other Musculoskeletal/Integumentary: Reports: other - contracted, Denies: DDD, DJD, OA, RA, edema PMH Narrative: as above PSxH Narrative: see chart Anesthesia Pre-op Phys. Exam Physician Exam Last Vital Signs Date Time Temp Pulse Resp B/P Pulse Ox O2 Delivery O2 Flow Rate FiO2 10/04/16 09:22 93 33 30 10/04/16 08:00 97.9 108/52 100 Mechanical Ventilator 10/02/16 08:00 30.0 Constitutional: NAD Neurologic: other - unable to obtaine Cardiovascular: RRR Respiratory: other - bilateral rhonky and wheezing Gastrointestinal: other - peg tube Airway Exam Mallampati Score: Class III - intubated MO: limited Neck: stiff ROM: limited Teeth: missing Dentures: no lower, no upper Anesthesia Pre-op A/P Labs Hematology Test 10/03/16 16:05 White Blood Count 17.8 K/UL (4.8-10.8) H Red Blood Count 2.41 M/UL (4.70-6.10) L Hemoglobin 8.0 G/DL (14.2-18.0) L Hematocrit 23.0 % (42.0-52.0) L Mean Corpuscular Volume 95 FL (80-99) Mean Corpuscular Hemoglobin 33.2 PG (27.0-31.0) H Mean Corpuscular Hemoglobin Concent 34.8 G/DL (32.0-36.0) Red Cell Distribution Width 15.8 % (11.6-14.8) H Platelet Count 277 K/UL (150-450) Mean Platelet Volume 5.3 FL (6.5-10.1) L Neutrophils (%) (Auto) 72.9 % (45.0-75.0) Lymphocytes (%) (Auto) 9.8 % (20.0-45.0) L Monocytes (%) (Auto) 11.8 % (1.0-10.0) H Eosinophils (%) (Auto) 1.7 % (0.0-3.0) Basophils (%) (Auto) 3.8 % (0.0-2.0) H Risk Assessment & Plan Assessment: ASA 4 Plan: MAC Status Change Before Surgery: No Pre-Antibiotics Drug: none JOSE PATEL M.D. Oct 04, 2016 10:07
--- NOTE | 2016-10-04 10:10 | General Progress Note ---
Assessment/Plan Assessment/Plan Assessment - UGIB - possible DM gastroparesis - Acute pancreatitis, presumed due to gallstone - Leukocytosis - encephalopathy - resp failure - DM - renal failure - Anemia, presumed due to renal failure, slightly lower after GIB Recommendations - EGD today - PPI - transfuse - Reglan / bethanecol - continue TPN - continue to follow amylase and lipase - will resume TF once amylase and lipase closer to resolution - abx per ID Subjective Allergies: Coded Allergies: NIACIN (Verified Allergy, Unknown, ITCHING, 01/30/12) Subjective No amylase or lipase drawn today s/p transfusion no events overnight Objective Last 24 Hour Vital Signs Date Time Temp Pulse Resp B/P Pulse Ox O2 Delivery O2 Flow Rate FiO2 10/04/16 09:22 93 33 30 10/04/16 08:00 30 10/04/16 08:00 97.9 94 25 108/52 100 Mechanical Ventilator 30 10/04/16 07:21 104 31 30 10/04/16 05:15 98 35 30 10/04/16 04:00 30 10/04/16 04:00 98.3 98 28 122/50 100 Mechanical Ventilator 30 10/04/16 04:00 95 10/04/16 03:11 95 19 30 10/04/16 01:10 94 24 30 10/04/16 00:38 98.2 98 27 113/42 100 Mechanical Ventilator 30 10/04/16 00:00 30 10/04/16 00:00 98 10/03/16 22:33 99 24 30 10/03/16 20:49 97 28 30 10/03/16 20:00 30 10/03/16 20:00 99.6 101 27 112/44 100 Mechanical Ventilator 30 10/03/16 20:00 97 10/03/16 19:05 100 33 30 10/03/16 18:44 127/85 10/03/16 16:33 84 18 30 10/03/16 16:00 95 10/03/16 16:00 97.9 95 24 127/85 100 Mechanical Ventilator 30 10/03/16 16:00 30 10/03/16 15:01 87 18 30 10/03/16 13:29 86 18 30 10/03/16 12:24 140/69 10/03/16 12:24 98 140/69 10/03/16 12:00 30 10/03/16 12:00 98.2 98 27 140/69 100 Mechanical Ventilator 30 10/03/16 12:00 100 10/03/16 11:45 89 18 30 Intake and Output 10/03/16 10/04/16 19:00 07:00 Intake Total 959 ml 1147 ml Balance 959 ml 1147 ml Free Water 100 ml IV Total 859 ml 847 ml Blood Product 300 ml # Voids 3 # Bowel Movements 2 5 Laboratory Tests 10/03/16 16:05: White Blood Count 17.8H, Red Blood Count 2.41L, Hemoglobin 8.0L, Hematocrit 23.0L, Mean Corpuscular Volume 95, Mean Corpuscular Hemoglobin 33.2H, Mean Corpuscular Hemoglobin Concent 34.8, Red Cell Distribution Width 15.8H, Platelet Count 277, Mean Platelet Volume 5.3L, Neutrophils (%) (Auto) 72.9, Lymphocytes (%) (Auto) 9.8L, Monocytes (%) (Auto) 11.8H, Eosinophils (%) (Auto) 1.7, Basophils (%) (Auto) 3.8H Height (Feet): 5 Height (Inches): 9.00 Weight (Pounds): 172 Objective Intubated and unresponsive NCAT, (+)trach supple Coarse BS RR soft ND abdomen, (+) umbilical hernia w/o change, (+) GT no edema unresponsive ANNE CURRAN Oct 04, 2016 10:10
--- NOTE | 2016-10-04 10:11 | Pre-Procedure Note/Attestation ---
Pre-Procedure Note/Attestation Complete Prior to Procedure Planned Procedure: not applicable Procedure Narrative: egd Indications for Procedure Pre-Operative Diagnosis: GIB Attestation I attest that I discussed the nature of the procedure; its benefits; risks and complications; and alternatives (and the risks and benefits of such alternatives ), prior to the procedure, with the patient (or the patient's legal sales representative jewelry). I attest that, if there was a reasonable possibility of needing a blood transfusion, the patient (or the patient's legal sales representative jewelry) was given the [facility] standardized written summary, pursuant to the Malvin Anastacia Blood Safety Act ([place] Health and Safety Code # 1645, as amended). I attest that I re-evaluated the patient just prior to the surgery and that there has been no change in the patient's H&P, except as documented below: ANNE CURRAN Oct 04, 2016 10:11
[2016-10-04] MEDS: Phenytoin Susp 100mg/4ml GT SCH ×2 (10:34→21:08)
[2016-10-04] MEDS: Valproic Acid 250mg/5ml Liquid GT SCH ×3 (10:34→21:08)
--- NOTE | 2016-10-04 12:07 | Immediate Post-Op Evaluation ---
Immediate Post-Op Evalulation Immediate Post-Op Evalulation Procedure: EGD Date of Evaluation: Oct 04, 2016 Time of Evaluation: 10:27 IV Fluids: 150 Blood Products: none Estimated Blood Loss: min Urinary Output: none Blood Pressure Systolic: 116 Blood Pressure Diastolic: 53 Pulse Rate: 86 Respiratory Rate: 20 O2 Sat by Pulse Oximetry: 97 Temperature (Fahrenheit): 97.4 Pain Score (1-10): 2 Nausea: No Vomiting: No Complications none Patient Status: reacts, ventilated, none Hydration Status: adequate JOSE PATEL M.D. Oct 04, 2016 12:07
--- NOTE | 2016-10-04 12:08 | 48 Hour Post Anesthesia Eval ---
Post Anesthesia Evaluation Procedure: EGD Date of Evaluation: Oct 04, 2016 Time of Evaluation: 12:07 Blood Pressure Systolic: 128 0: 65 Pulse Rate: 82 Respiratory Rate: 12 Temperature (Fahrenheit): 97.6 O2 Sat by Pulse Oximetry: 98 Airway: other - tracheostomy Nausea: No Vomiting: No Pain Intensity: 2 Hydration Status: adequate Cardiopulmonary Status: stable Mental Status/LOC: patient returned to baseline Follow-up Care/Observations: n/a Post-Anesthesia Complications: none Follow-up care needed: N/A JOSE PATEL M.D. Oct 04, 2016 12:08
--- NOTE | 2016-10-04 13:46 | Nephrology Progress Note ---
Assessment/Plan Problem List: (1) ESRD (end stage renal disease) (2) Anoxic encephalopathy syndrome (3) Respiratory failure with hypoxia (4) CHF (congestive heart failure) (5) HTN (hypertension) (6) Acute pancreatitis Assessment: better (7) Pneumonia Assessment: enterobacter Plan HD as tolerated Cont TPN Vent support follow labs abxs Discussed with RN and Pharmacist Transfuse for further drop in HCT Subjective Subjective In NAD Seen on dialysis Objective Objective Last 24 Hour Vital Signs Date Time Temp Pulse Resp B/P Pulse Ox O2 Delivery O2 Flow Rate FiO2 10/04/16 13:05 98 38 50 10/04/16 12:08 82 12 98 10/04/16 12:07 86 20 97 10/04/16 12:00 97.9 98 35 120/66 100 Mechanical Ventilator 100 10/04/16 12:00 30 10/04/16 12:00 94 10/04/16 10:45 90 32 100 10/04/16 10:30 Mechanical Ventilator 100.0 10/04/16 10:30 97.8 148/59 Mechanical Ventilator 100.0 100 10/04/16 09:22 93 33 30 10/04/16 08:00 30 10/04/16 08:00 97.9 94 25 108/52 100 Mechanical Ventilator 30 10/04/16 07:55 105 10/04/16 07:21 104 31 30 10/04/16 05:15 98 35 30 10/04/16 04:00 30 10/04/16 04:00 98.3 98 28 122/50 100 Mechanical Ventilator 30 10/04/16 04:00 95 10/04/16 03:11 95 19 30 10/04/16 01:10 94 24 30 10/04/16 00:38 98.2 98 27 113/42 100 Mechanical Ventilator 30 10/04/16 00:00 30 10/04/16 00:00 98 10/03/16 22:33 99 24 30 10/03/16 20:49 97 28 30 10/03/16 20:00 30 10/03/16 20:00 99.6 101 27 112/44 100 Mechanical Ventilator 30 10/03/16 20:00 97 10/03/16 19:05 100 33 30 10/03/16 18:44 127/85 10/03/16 16:33 84 18 30 10/03/16 16:00 95 10/03/16 16:00 97.9 95 24 127/85 100 Mechanical Ventilator 30 10/03/16 16:00 30 10/03/16 15:01 87 18 30 Intake and Output 10/03/16 10/04/16 19:00 07:00 Intake Total 959 ml 1147 ml Balance 959 ml 1147 ml Free Water 100 ml IV Total 859 ml 847 ml Blood Product 300 ml # Voids 3 # Bowel Movements 2 5 Laboratory Tests 10/03/16 16:05: White Blood Count 17.8H, Red Blood Count 2.41L, Hemoglobin 8.0L, Hematocrit 23.0L, Mean Corpuscular Volume 95, Mean Corpuscular Hemoglobin 33.2H, Mean Corpuscular Hemoglobin Concent 34.8, Red Cell Distribution Width 15.8H, Platelet Count 277, Mean Platelet Volume 5.3L, Neutrophils (%) (Auto) 72.9, Lymphocytes (%) (Auto) 9.8L, Monocytes (%) (Auto) 11.8H, Eosinophils (%) (Auto) 1.7, Basophils (%) (Auto) 3.8H Height (Feet): 5 Height (Inches): 9.00 Weight (Pounds): 172 Cardiovascular: normal rate Respiratory/Chest: lungs clear Extremities: other - no edema CANDICE BREAUX Oct 04, 2016 13:45
--- NOTE | 2016-10-04 14:21 | Internal Med Progress Note ---
Subjective Date of Service: Oct 04, 2016 Physician Name Filiberto Clancy Attending Physician Harrison Delatorre Current Medications Medications (Trade) Dose Ordered Sig/Mark Route PRN Reason Start Time Stop Time Status Last Admin Dose Admin Acetaminophen (Tylenol) 650 mg Q4H PRN ORAL Mild Pain (Pain Scale 1-3) 09/26/16 11:00 10/26/16 10:59 10/02/16 10:57 Amlodipine Besylate (Norvasc) 10 mg DAILY GT 09/27/16 09:00 10/27/16 08:59 10/03/16 12:24 Bethanechol Chloride (Urecholine) 10 mg THREE TIMES A DAY ORAL 09/26/16 13:00 10/26/16 12:59 10/04/16 13:21 Chlorhexidine Gluconate (Lakshmi-Hex 2%) 1 applic Q24H TOPIC 09/26/16 21:00 10/26/16 20:59 10/03/16 20:47 Dextrose (D10w) 1,000 ml @ 0 mls/hr Q24H PRN IV PN interrupted or unavailable 09/28/16 21:00 10/28/16 20:59 Dextrose STAT PRN IV Hypoglycemia 09/28/16 12:00 10/28/16 11:59 10/04/16 11:49 Epoetin Kiko (Procrit (for ESRD on dialysis)) 10,000 units THU-THU-THU SUBQ 09/29/16 21:00 10/29/16 20:59 10/03/16 20:49 Fat Emulsion Intravenous 240 ml/Amino Acids/ Electrolytes/ Dextrose 1,608 ml @ 67 mls/hr Q24H IV 10/03/16 21:00 11/02/16 20:59 10/03/16 21:25 Heparin Sodium (Porcine) (Heparin 5000 units/ml) 5,000 units EVERY 12 HOURS SUBQ 09/26/16 21:00 10/26/16 20:59 10/02/16 20:37 Heparin Sodium (Porcine) (Heparin 5000 units/ml) 5,000 units POSTHD INJ 10/04/16 06:00 10/04/16 23:59 Heparin Sodium (Porcine) (Heparin Sod 1000 units/ml 10ml) 2,000 unit ONCE IV 10/04/16 06:00 10/04/16 23:59 Insulin Aspart (NovoLOG) EVERY 6 HOURS SUBQ 09/26/16 12:00 10/26/16 11:59 10/03/16 18:48 Lansoprazole (Prevacid) 30 mg DAILY GT 09/27/16 09:00 10/27/16 08:59 10/04/16 10:35 Lorazepam 1 mg 1 mg DAILYPRN PRN IV agitation prior to HD 10/02/16 10:30 10/09/16 10:29 10/04/16 08:14 Metoclopramide HCl (Reglan) 5 mg Q6HR NG 09/26/16 12:00 10/26/16 11:59 10/04/16 12:24 Metronidazole (Flagyl) 500 mg EVERY 8 HOURS ORAL 09/30/16 14:00 10/07/16 13:59 10/04/16 13:36 Minoxidil (Loniten) 15 mg BID GT 09/26/16 18:00 10/26/16 17:59 10/03/16 18:44 Phenytoin (Dilantin) 300 mg Q12HR GT 09/26/16 21:00 10/26/16 20:59 10/04/16 10:34 Phenytoin/Sodium Chloride (Dilantin/Sodium Chloride) 120 ml @ 120 mls/hr POSTHD IVPB 09/26/16 21:00 10/26/16 20:59 10/02/16 16:24 Phytonadione (Vitamin K) 10 mg QWEEK SUBQ 09/28/16 21:00 10/28/16 20:59 09/28/16 21:48 Piperacillin Sod/ Tazobactam Sod/ Dextrose (Zosyn/D5W) 55 ml @ 110 mls/hr Q8HR IVPB 09/28/16 14:00 10/07/16 13:59 10/04/16 13:36 Polyethylene Glycol (Miralax) 17 gm DAILYPRN PRN ORAL Constipation 09/26/16 23:00 10/26/16 22:59 Sodium Chloride (Sodium Chloride 1000ml bag) 1,000 ml @ 500 mls/hr Q2H PRN IVLG sbp<90 during hd 10/04/16 06:00 10/04/16 23:59 Valproic Acid (Depakene) 1,000 mg POSTHD GT 09/26/16 11:00 10/26/16 10:59 10/04/16 13:35 Valproic Acid 1500 mg 1,500 mg Q12HR GT 09/26/16 21:00 10/26/16 20:59 10/04/16 10:34 Allergies: Coded Allergies: NIACIN (Verified Allergy, Unknown, ITCHING, 01/30/12) ROS Limited/Unobtainable: Yes Subjective 71 YO M admitted with volume overload and respiratory failure. S/P cardiopulmonary arrest. WILD. Intubated. Pancreatitis resolving. Cover for Int Med-Dr [place]. Objective Last Vital Signs Date Time Temp Pulse Resp B/P Pulse Ox O2 Delivery O2 Flow Rate FiO2 10/04/16 13:53 Mechanical Ventilator 50 10/04/16 13:49 97.0 87 30 146/67 100 10/04/16 10:30 100.0 Laboratory Tests Test 10/03/16 16:05 White Blood Count 17.8 K/UL (4.8-10.8) H Red Blood Count 2.41 M/UL (4.70-6.10) L Hemoglobin 8.0 G/DL (14.2-18.0) L Hematocrit 23.0 % (42.0-52.0) L Mean Corpuscular Volume 95 FL (80-99) Mean Corpuscular Hemoglobin 33.2 PG (27.0-31.0) H Mean Corpuscular Hemoglobin Concent 34.8 G/DL (32.0-36.0) Red Cell Distribution Width 15.8 % (11.6-14.8) H Platelet Count 277 K/UL (150-450) Mean Platelet Volume 5.3 FL (6.5-10.1) L Neutrophils (%) (Auto) 72.9 % (45.0-75.0) Lymphocytes (%) (Auto) 9.8 % (20.0-45.0) L Monocytes (%) (Auto) 11.8 % (1.0-10.0) H Eosinophils (%) (Auto) 1.7 % (0.0-3.0) Basophils (%) (Auto) 3.8 % (0.0-2.0) H Intake and Output 10/03/16 10/04/16 19:00 07:00 Intake Total 959 ml 1147 ml Balance 959 ml 1147 ml Free Water 100 ml IV Total 859 ml 847 ml Blood Product 300 ml # Voids 3 # Bowel Movements 2 5 Objective General Appearance: WD/WN, lethargic EENT: PERRL/EOMI, normal ENT inspection, TMs normal Neck: non-tender, normal alignment, supple Cardiovascular: normal peripheral pulses, normal rate, regular rhythm, no gallop/murmur, no JVD Respiratory/Chest: Mech vent; chest wall non-tender, crackles/rales, rhonchi - bilaterally, expiratory wheezing Abdomen: normal bowel sounds, non tender, soft, no organomegaly Skin: normal pigmentation, warm/dry Assessment/Plan Problem List: (1) HTN (hypertension) Assessment & Plan: Cont amlodipine. (2) Hyperkalemia (3) Respiratory failure with hypoxia Assessment & Plan: Intubated and sedated. S/P Tracheostomy 09/24/16. (4) ESRD (end stage renal disease) Assessment & Plan: See nephrology note. Last Hemodialysis 10/02/16 per nephrology (5) CHF (congestive heart failure) (6) Diabetes mellitus Assessment & Plan: Cont novolog sliding scale. 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 (9) Anoxic encephalopathy syndrome Assessment & Plan: See neruo note. (10) Enterobacter sepsis (11) Pneumonia Assessment & Plan: Enterobacter. Cont zosyn and flagyl per ID (12) Anemia (13) Dysphagia Assessment & Plan: S/P PEG 09/23/16. (14) Cholecystitis, acute Assessment & Plan: See Surgery note. Not surgical candidate at this time. Continue zosyn and flagyl per ID (15) Pancreatitis, acute Assessment & Plan: Improving amylase and lipase. See GI note. Hold tube feeds ; continue TPN. (16) Fever Assessment & Plan: See ID note. Status: not improved Assessment/Plan Discharge to [facility] when accepted-see case management note. FILIBERTO CLANCY Oct 04, 2016 14:21
[2016-10-04] MEDS: Phenytoin 500 MG in NS 110 ML IVPB SCH (15:47)
[2016-10-04 16:43] LABS: MEAN CORPUSCULAR HEMOGLOBIN 32.5 PG (27.0-31.0); MEAN CORPUSCULAR HGB CONC 34.1 G/DL (32.0-36.0); MEAN CORPUSCULAR VOLUME 95 FL (80-99); MEAN PLATELET VOLUME 5.1 FL (6.5-10.1); PLATELET COUNT 240 K/UL (150-450); RED CELL DISTRIBUTION WIDTH 15.8 % (11.6-14.8)
[2016-10-04 16:48] LABS: LYMPHOCYTES % (AUTO) 5.4 % (20.0-45.0); NEUTROPHILS % (AUTO) 73.9 % (45.0-75.0)
[2016-10-04 16:49] LABS: BASOPHILS % (AUTO) 3.4 % (0.0-2.0); EOSINOPHILS % (AUTO) 1.8 % (0.0-3.0); MONOCYTES % (AUTO) 15.5 % (1.0-10.0)
[2016-10-04 17:03] LABS: CALCIUM 8.9 mg/dL (8.6-10.2); CREATININE 4.2 mg/dL (0.7-1.2); GLOMERULAR FILTRATION RATE 14.1 mL/min (>60); POTASSIUM 4.3 mEQ/L (3.4-4.9)
--- NOTE | 2016-10-04 17:37 | Pulmonology Progress Note ---
Assessment/Plan Assessment/Plan 1. Status post cardiac arrest. 2. Renal failure with hyperkalemia. 3. Respiratory failure. 4. Anoxic encephalopathy. 5. Status epilepticus 6. Coronary artery disease. 7. History of cardiomyopathy. 8. Diabetes. 9. Hypertension. 10 Pancreatitis no weaning attempts trach and vent dependent cont TPN, NPO at this time nebs and suction monitor BP, pressors if MAP less than 65 mmhg wound care DVT prophylaxis HD per renal continue abx prognosis guarded disc kade dixon RN Subjective ROS Limited/Unobtainable: Yes Allergies: Coded Allergies: NIACIN (Verified Allergy, Unknown, ITCHING, 01/30/12) Subjective no evetns remains on the vent unresponsive to me, nonpurposeful movements, agitated this am no reports of cp nv or bleeding on HD per renal bs better controlled Objective Last 24 Hour Vital Signs Date Time Temp Pulse Resp B/P Pulse Ox O2 Delivery O2 Flow Rate FiO2 10/04/16 17:22 92 31 35 10/04/16 16:00 98.1 84 17 126/55 97 Mechanical Ventilator 50 10/04/16 16:00 30 10/04/16 16:00 97 10/04/16 15:17 96 39 35 10/04/16 13:53 Mechanical Ventilator 50 10/04/16 13:49 97.0 87 30 146/67 100 Mechanical Ventilator 50 10/04/16 13:05 98 38 50 10/04/16 12:08 82 12 98 10/04/16 12:07 86 20 97 10/04/16 12:00 97.9 98 35 120/66 100 Mechanical Ventilator 100 10/04/16 12:00 30 10/04/16 12:00 94 10/04/16 10:45 90 32 100 10/04/16 10:30 Mechanical Ventilator 100.0 10/04/16 10:30 97.8 148/59 Mechanical Ventilator 100.0 100 10/04/16 09:22 93 33 30 10/04/16 08:00 30 10/04/16 08:00 97.9 94 25 108/52 100 Mechanical Ventilator 30 10/04/16 07:55 105 10/04/16 07:21 104 31 30 10/04/16 05:15 98 35 30 10/04/16 04:00 30 10/04/16 04:00 98.3 98 28 122/50 100 Mechanical Ventilator 30 10/04/16 04:00 95 10/04/16 03:11 95 19 30 10/04/16 01:10 94 24 30 10/04/16 00:38 98.2 98 27 113/42 100 Mechanical Ventilator 30 10/04/16 00:00 30 10/04/16 00:00 98 10/03/16 22:33 99 24 30 10/03/16 20:49 97 28 30 10/03/16 20:00 30 10/03/16 20:00 99.6 101 27 112/44 100 Mechanical Ventilator 30 10/03/16 20:00 97 10/03/16 19:05 100 33 30 10/03/16 18:44 127/85 Intake and Output 10/03/16 10/04/16 19:00 07:00 Intake Total 959 ml 1147 ml Balance 959 ml 1147 ml Free Water 100 ml IV Total 859 ml 847 ml Blood Product 300 ml # Voids 3 # Bowel Movements 2 5 General Appearance: WD/WN HEENT: anicteric, other - trach Respiratory/Chest: normal breath sounds, rhonchi Cardiovascular: normal rate, regular rhythm Abdomen: soft, non tender, no organomegaly Extremities: no cyanosis Skin: no rash Neurologic/Psychiatric: unresponsiveness Lymphatic: no groin adenopathy Musculoskeletal: normal muscle bulk Laboratory Tests 10/04/16 16:30: White Blood Count 18.0H, Red Blood Count 2.70L, Hemoglobin 8.8L, Hematocrit 25.7L, Mean Corpuscular Volume 95, Mean Corpuscular Hemoglobin 32.5H, Mean Corpuscular Hemoglobin Concent 34.1, Red Cell Distribution Width 15.8H, Platelet Count 240, Mean Platelet Volume 5.1L, Neutrophils (%) (Auto) 73.9, Lymphocytes (%) (Auto) 5.4L, Monocytes (%) (Auto) 15.5H, Eosinophils (%) (Auto) 1.8, Basophils (%) (Auto) 3.4H, Sodium Level 139, Potassium Level 4.3, Chloride Level 96L, Carbon Dioxide Level 25, Anion Gap 18H, Blood Urea Nitrogen 39H, Creatinine 4.2H, Estimat Glomerular Filtration Rate 14.1, Glucose Level 110H, Calcium Level 8.9, Phosphorus Level 3.6 Current Medications Medications (Trade) Dose Ordered Sig/Mark Route PRN Reason Start Time Stop Time Status Last Admin Dose Admin Acetaminophen (Tylenol) 650 mg Q4H PRN ORAL Mild Pain (Pain Scale 1-3) 09/26/16 11:00 10/26/16 10:59 10/02/16 10:57 Amlodipine Besylate (Norvasc) 10 mg DAILY GT 09/27/16 09:00 10/27/16 08:59 10/03/16 12:24 Bethanechol Chloride (Urecholine) 10 mg THREE TIMES A DAY ORAL 09/26/16 13:00 10/26/16 12:59 10/04/16 13:21 Chlorhexidine Gluconate (Lakshmi-Hex 2%) 1 applic Q24H TOPIC 09/26/16 21:00 10/26/16 20:59 10/03/16 20:47 Dextrose (D10w) 1,000 ml @ 0 mls/hr Q24H PRN IV PN interrupted or unavailable 09/28/16 21:00 10/28/16 20:59 Dextrose STAT PRN IV Hypoglycemia 09/28/16 12:00 10/28/16 11:59 10/04/16 11:49 Epoetin Kiko (Procrit (for ESRD on dialysis)) 10,000 units THU-THU-THU SUBQ 09/29/16 21:00 10/29/16 20:59 10/03/16 20:49 Fat Emulsion Intravenous 240 ml/Amino Acids/ Electrolytes/ Dextrose 1,608 ml @ 67 mls/hr Q24H IV 10/03/16 21:00 11/02/16 20:59 10/03/16 21:25 Heparin Sodium (Porcine) (Heparin 5000 units/ml) 5,000 units EVERY 12 HOURS SUBQ 09/26/16 21:00 10/26/16 20:59 10/02/16 20:37 Heparin Sodium (Porcine) (Heparin 5000 units/ml) 5,000 units POSTHD INJ 10/04/16 06:00 10/04/16 23:59 Heparin Sodium (Porcine) (Heparin Sod 1000 units/ml 10ml) 2,000 unit ONCE IV 10/04/16 06:00 10/04/16 23:59 Insulin Aspart (NovoLOG) EVERY 6 HOURS SUBQ 09/26/16 12:00 10/26/16 11:59 10/03/16 18:48 Lansoprazole (Prevacid) 30 mg DAILY GT 09/27/16 09:00 10/27/16 08:59 10/04/16 10:35 Lorazepam 1 mg 1 mg DAILYPRN PRN IV agitation prior to HD 10/02/16 10:30 10/09/16 10:29 10/04/16 08:14 Metoclopramide HCl (Reglan) 5 mg Q6HR NG 09/26/16 12:00 10/26/16 11:59 10/04/16 12:24 Metronidazole (Flagyl) 500 mg EVERY 8 HOURS ORAL 09/30/16 14:00 10/07/16 13:59 10/04/16 13:36 Minoxidil (Loniten) 15 mg BID GT 09/26/16 18:00 10/26/16 17:59 10/03/16 18:44 Phenytoin (Dilantin) 300 mg Q12HR GT 09/26/16 21:00 10/26/16 20:59 10/04/16 10:34 Phenytoin/Sodium Chloride (Dilantin/Sodium Chloride) 120 ml @ 120 mls/hr POSTHD IVPB 09/26/16 21:00 10/26/16 20:59 10/04/16 15:47 Phytonadione (Vitamin K) 10 mg QWEEK SUBQ 09/28/16 21:00 10/28/16 20:59 09/28/16 21:48 Piperacillin Sod/ Tazobactam Sod/ Dextrose (Zosyn/D5W) 55 ml @ 110 mls/hr Q8HR IVPB 09/28/16 14:00 10/07/16 13:59 10/04/16 13:36 Polyethylene Glycol (Miralax) 17 gm DAILYPRN PRN ORAL Constipation 09/26/16 23:00 10/26/16 22:59 Sodium Chloride (Sodium Chloride 1000ml bag) 1,000 ml @ 500 mls/hr Q2H PRN IVLG sbp<90 during hd 10/04/16 06:00 10/04/16 23:59 Valproic Acid (Depakene) 1,000 mg POSTHD GT 09/26/16 11:00 10/26/16 10:59 10/04/16 13:35 Valproic Acid 1500 mg 1,500 mg Q12HR GT 09/26/16 21:00 10/26/16 20:59 10/04/16 10:34 KOLTON RENTERIA DO Oct 04, 2016 17:37
--- NOTE | 2016-10-04 19:28 | Endoscopy Procedure Note ---
Endoscopy Procedure Note Indication for Procedure: GIB Procedures Performed: EGD Operative Findings/Diagnosis: GERD/esophagitis Specimen: none Pt Tolerated Procedure Well: Yes Estimated Blood Loss: none Anesthesiologist: see list Anesthesia: MAC, moderate sedation Medication Given: see anesthesia record Implant(s) used?: No 50 yrs or older w/o bx or poly: Not Applicable 10yrs. F/U not recommended: Not Applicable If not recommended, why?: ANNE CURRAN Oct 04, 2016 19:28
--- NOTE | 2016-10-04 19:29 | Brief Operative Note ---
Immediate Post Operative Note Operative Note Chief Complaint: gib Pre-op Diagnosis: GIB Procedure: EGD Post-op Diagnosis: GERD/esophagitis Specimen: none Complications: none Condition: stable Estimated Blood Loss: none Drains: none Implant(s) used?: Yes ANNE CURRAN Oct 04, 2016 19:29
[2016-10-04] MEDS: Dyna-Hex 2% Top Sol 8oz TOPIC SCH (21:09)
[2016-10-04] MEDS: TPN IV SCH (21:11)
[2016-10-04] MEDS: FAT EMULSION 20% IV SCH (21:11)
[2016-10-04] MEDS ORDERED: Tubing IV Secondary IV ONE (22:54)
[2016-10-04] MEDS ORDERED: NS 275ml ONE (22:54)
[2016-10-05] MEDS ORDERED: Acetaminophen 650mg/20.3ml GT PRN (02:45)
[2016-10-05] MEDS ORDERED: Miralax 17gm pkt GT PRN (02:45)
[2016-10-05] MEDS: LORazepam Inj 2mg/ml 1ml IV PRN ×2 (04:26→12:40)
[2016-10-05 04:38] VITALS: BP_SYST 185; BP_SYST 93; BP_SYST 96; BP_DIAS 43; BP_DIAS 60
[2016-10-05] MEDS: Piperacillin/Tazobactam 2.25 GM in D5W 55 ML IVPB SCH ×3 (05:01→21:57)
[2016-10-05] MEDS: Metoclopramide 10mg/10ml Liq GT SCH ×4 (05:01→23:51)
[2016-10-05] MEDS: metroNIDAZOLE 500mg tab GT SCH ×3 (05:01→21:57)
[2016-10-05] MEDS: NovoLOG Insulin Flexpen SUBQ SCH ×4 (06:00→23:50)
[2016-10-05 08:00] VITALS: BP 111/45
[2016-10-05 08:19] LABS: CALCIUM 9.6 mg/dL (8.6-10.2); GLOMERULAR FILTRATION RATE 11.5 mL/min (>60); POTASSIUM 4.3 mEQ/L (3.4-4.9)
--- NOTE | 2016-10-05 08:33 | Infectious Diseases Prog Note ---
Assessment/Plan Assessment/Plan A; Acute pancreatitis pneumonia with Enterobacter s/p Rx COPD s/p cardiac arrest Anoxic encephalopathy ESRD on HD Respiratory failure s/p tracheostomy s/p GT placement GI bleeding Esophagitis P; continue Zosyn & Flagyl X 1 day Subjective ROS Limited/Unobtainable: Yes Neurologic: Reports: confusion, other - has mitten Allergies: Coded Allergies: NIACIN (Verified Allergy, Unknown, ITCHING, 01/30/12) Objective Vital Signs Last 24 Hour Vital Signs Date Time Temp Pulse Resp B/P Pulse Ox O2 Delivery O2 Flow Rate FiO2 10/05/16 08:00 97.7 83 22 111/45 100 Mechanical Ventilator 35 10/05/16 08:00 30 10/05/16 08:00 91 10/05/16 07:11 85 23 35 10/05/16 06:00 95 10/05/16 04:44 92 26 35 10/05/16 04:38 97.5 99 20 96/43 100 Trach Collar 10/05/16 04:00 30 10/05/16 02:39 89 31 35 10/05/16 00:39 85 33 35 10/05/16 00:00 30 10/05/16 00:00 99 10/04/16 23:53 96.6 94 20 151/69 100 Trach Collar 10/04/16 22:45 98 33 35 10/04/16 20:46 94 27 35 10/04/16 20:00 30 10/04/16 20:00 95 10/04/16 19:39 99.9 92 21 138/43 100 Trach Collar 10/04/16 18:57 93 24 35 10/04/16 18:04 124/72 10/04/16 17:22 92 31 35 10/04/16 16:00 98.1 84 17 126/55 97 Mechanical Ventilator 50 10/04/16 16:00 30 10/04/16 16:00 97 10/04/16 15:17 96 39 35 10/04/16 13:53 Mechanical Ventilator 50 10/04/16 13:49 97.0 87 30 146/67 100 Mechanical Ventilator 50 10/04/16 13:05 98 38 50 10/04/16 12:08 82 12 98 10/04/16 12:07 86 20 97 10/04/16 12:00 97.9 98 35 120/66 100 Mechanical Ventilator 100 10/04/16 12:00 30 10/04/16 12:00 94 10/04/16 10:45 90 32 100 10/04/16 10:30 Mechanical Ventilator 100.0 10/04/16 10:30 97.8 148/59 Mechanical Ventilator 100.0 100 10/04/16 09:22 93 33 30 Height (Feet): 5 Height (Inches): 9.00 Weight (Pounds): 174 General Appearance: no acute distress HEENT: status post trach Respiratory/Chest: lungs clear, other - on ventilator Cardiovascular: normal rate Abdomen: soft, non tender Extremities: no edema Neurologic/Psychiatric: other - less responsive togay Laboratory Tests Test 10/04/16 16:30 10/05/16 05:20 White Blood Count 18.0 K/UL (4.8-10.8) H Red Blood Count 2.70 M/UL (4.70-6.10) L Hemoglobin 8.8 G/DL (14.2-18.0) L Hematocrit 25.7 % (42.0-52.0) L Mean Corpuscular Volume 95 FL (80-99) Mean Corpuscular Hemoglobin 32.5 PG (27.0-31.0) H Mean Corpuscular Hemoglobin Concent 34.1 G/DL (32.0-36.0) Red Cell Distribution Width 15.8 % (11.6-14.8) H Platelet Count 240 K/UL (150-450) Mean Platelet Volume 5.1 FL (6.5-10.1) L Neutrophils (%) (Auto) 73.9 % (45.0-75.0) Lymphocytes (%) (Auto) 5.4 % (20.0-45.0) L Monocytes (%) (Auto) 15.5 % (1.0-10.0) H Eosinophils (%) (Auto) 1.8 % (0.0-3.0) Basophils (%) (Auto) 3.4 % (0.0-2.0) H Sodium Level 139 mEQ/L (135-145) 143 mEQ/L (135-145) Potassium Level 4.3 mEQ/L (3.4-4.9) 4.3 mEQ/L (3.4-4.9) Chloride Level 96 mEQ/L (98-107) L 98 mEQ/L (98-107) Carbon Dioxide Level 25 mEQ/L (20-30) 24 mEQ/L (20-30) Anion Gap 18 (5-15) H 21 (5-15) H Blood Urea Nitrogen 39 mg/dL (7-23) H 51 mg/dL (7-23) H Creatinine 4.2 mg/dL (0.7-1.2) H 5.0 mg/dL (0.7-1.2) H Estimat Glomerular Filtration Rate 14.1 mL/min (>60) 11.5 mL/min (>60) Glucose Level 110 mg/dL (74-106) H 82 mg/dL (74-106) Calcium Level 8.9 mg/dL (8.6-10.2) 9.6 mg/dL (8.6-10.2) Phosphorus Level 3.6 mg/dL (2.5-4.8) 5.3 mg/dL (2.5-4.8) H Magnesium Level 1.9 mg/dL (1.7-2.5) Current Medications Medications (Trade) Dose Ordered Sig/Mark Route PRN Reason Start Time Stop Time Status Last Admin Dose Admin Acetaminophen (Tylenol) 650 mg Q4H PRN GT Mild Pain/Temp > 100.5 10/05/16 02:45 11/04/16 02:44 Amlodipine Besylate (Norvasc) 10 mg DAILY GT 09/27/16 09:00 10/27/16 08:59 10/03/16 12:24 Bethanechol Chloride (Urecholine) 10 mg THREE TIMES A DAY GT 10/05/16 09:00 11/04/16 08:59 Chlorhexidine Gluconate (Lakshmi-Hex 2%) 1 applic Q24H TOPIC 09/26/16 21:00 10/26/16 20:59 10/04/16 21:09 Dextrose (D10w) 1,000 ml @ 0 mls/hr Q24H PRN IV PN interrupted or unavailable 09/28/16 21:00 10/28/16 20:59 Dextrose STAT PRN IV Hypoglycemia 09/28/16 12:00 10/28/16 11:59 10/04/16 11:49 Epoetin Kiko (Procrit (for ESRD on dialysis)) 10,000 units THU-THU-THU SUBQ 09/29/16 21:00 10/29/16 20:59 10/03/16 20:49 Fat Emulsion Intravenous/Amino Acids/ Electrolytes/ Dextrose (Intralipids/Tpn) 1,608 ml @ 67 mls/hr Q24H IV 10/03/16 21:00 11/02/16 20:59 10/04/16 21:11 Heparin Sodium (Porcine) (Heparin 5000 units/ml) 5,000 units EVERY 12 HOURS SUBQ 09/26/16 21:00 10/26/16 20:59 10/04/16 21:11 Insulin Aspart (NovoLOG) EVERY 6 HOURS SUBQ 09/26/16 12:00 10/26/16 11:59 10/04/16 23:44 Lansoprazole (Prevacid) 30 mg DAILY GT 09/27/16 09:00 10/27/16 08:59 10/04/16 10:35 Lorazepam 1 mg 1 mg DAILYPRN PRN IV agitation prior to HD 10/02/16 10:30 10/09/16 10:29 10/05/16 04:26 Metoclopramide HCl (Reglan) 5 mg Q6HR GT 10/05/16 06:00 11/04/16 05:59 10/05/16 05:01 Metronidazole (Flagyl) 500 mg EVERY 8 HOURS GT 10/05/16 06:00 10/12/16 05:59 10/05/16 05:01 Minoxidil (Loniten) 15 mg BID GT 09/26/16 18:00 10/26/16 17:59 10/04/16 18:04 Phenytoin (Dilantin) 300 mg Q12HR GT 09/26/16 21:00 10/26/16 20:59 10/04/16 21:08 Phenytoin/Sodium Chloride (Dilantin/Sodium Chloride) 120 ml @ 120 mls/hr POSTHD IVPB 09/26/16 21:00 10/26/16 20:59 10/04/16 15:47 Phytonadione (Vitamin K) 10 mg QWEEK SUBQ 09/28/16 21:00 10/28/16 20:59 09/28/16 21:48 Piperacillin Sod/ Tazobactam Sod/ Dextrose (Zosyn/D5W) 55 ml @ 110 mls/hr Q8HR IVPB 09/28/16 14:00 10/07/16 13:59 10/05/16 05:01 Polyethylene Glycol (Miralax) 17 gm DAILYPRN PRN GT Constipation 10/05/16 02:45 11/04/16 02:44 Valproic Acid (Depakene) 1,000 mg POSTHD GT 09/26/16 11:00 10/26/16 10:59 10/04/16 13:35 Valproic Acid 1500 mg 1,500 mg Q12HR GT 09/26/16 21:00 10/26/16 20:59 10/04/16 21:08 ROZINA BREAUX Oct 05, 2016 08:33
[2016-10-05] MEDS: Heparin 5000 units/ml inj SUBQ SCH ×2 (08:34→20:46)
[2016-10-05] MEDS: Minoxidil 10mg tab GT SCH ×2 (08:35→17:35)
[2016-10-05] MEDS: Valproic Acid 250mg/5ml Liquid GT SCH ×3 (08:35→21:14)
[2016-10-05] MEDS: Phenytoin Susp 100mg/4ml GT SCH ×3 (08:36→21:14)
--- NOTE | 2016-10-05 09:19 | Diagnostic Imaging Report ---
Indication: VOMITING Technique: IV administration 5.8 mCi 99M technetium mebrofenin. Images obtained over the upper abdomen for 60 minutes Comparison: None Findings: Prompt hepatic tracer uptake. At 4 minutes, extrahepatic bile ducts are visualized and at 7 minutes, tracer is seen within the duodenum. Gallbladder begins to fill at 15 minutes, and continues to fill subsequently. Impression: Negative. No evidence of cystic duct or common bile duct obstruction
[2016-10-05] MEDS: Bethanechol 10mg Tab GT SCH ×3 (09:21→17:35)
[2016-10-05 12:00] VITALS: BP 157/44
--- NOTE | 2016-10-05 12:07 | Cardiology Progress Note ---
Assessment/Plan Assessment/Plan cardiopulm arrest anoxic encephalopathy esrd on hd noncompliant with dialysis htn chronic diastolic failure hx cad status epilepticus fever UGIB possible DM gastroparesis Acute pancreatitis, presumed due to gallstone pancreatic enzyme on down trend awiat dialysis bp seems on the lower end of normal hgb better prbc tx per dr ferro Subjective ROS Limited/Unobtainable: Yes Subjective on vent not comminicative not responsive moves around sitter at bedside to help prevent self inflicted problems Objective Last 24 Hour Vital Signs Date Time Temp Pulse Resp B/P Pulse Ox O2 Delivery O2 Flow Rate FiO2 10/05/16 11:25 92 27 35 10/05/16 09:18 91 34 35 10/05/16 08:36 98 111/45 10/05/16 08:35 111/45 10/05/16 08:00 97.7 83 22 111/45 100 Mechanical Ventilator 35 10/05/16 08:00 30 10/05/16 08:00 91 10/05/16 07:11 85 23 35 10/05/16 06:00 95 10/05/16 04:44 92 26 35 10/05/16 04:38 97.5 99 20 96/43 100 Trach Collar 10/05/16 04:00 30 10/05/16 02:39 89 31 35 10/05/16 00:39 85 33 35 10/05/16 00:00 30 10/05/16 00:00 99 10/04/16 23:53 96.6 94 20 151/69 100 Trach Collar 10/04/16 22:45 98 33 35 10/04/16 20:46 94 27 35 10/04/16 20:00 30 10/04/16 20:00 95 10/04/16 19:39 99.9 92 21 138/43 100 Trach Collar 10/04/16 18:57 93 24 35 10/04/16 18:04 124/72 10/04/16 17:22 92 31 35 10/04/16 16:00 98.1 84 17 126/55 97 Mechanical Ventilator 50 10/04/16 16:00 30 10/04/16 16:00 97 10/04/16 15:17 96 39 35 10/04/16 13:53 Mechanical Ventilator 50 10/04/16 13:49 97.0 87 30 146/67 100 Mechanical Ventilator 50 10/04/16 13:05 98 38 50 10/04/16 12:08 82 12 98 10/04/16 12:07 86 20 97 General Appearance: no apparent distress, on vent Neck: supple Cardiovascular: normal rate, regular rhythm Respiratory/Chest: lungs clear Abdomen: normal bowel sounds, non tender, soft Extremities: no swelling Intake and Output 10/04/16 10/05/16 19:00 07:00 Intake Total 1129 ml 1087.86 ml Output Total 2500 ml Balance -1371 ml 1087.86 ml IV Total 979 ml 987.86 ml Other 150 ml 100 ml Hemodialysis UF 2500 ml # Bowel Movements 4 6 Laboratory Tests Test 10/04/16 16:30 10/05/16 05:20 White Blood Count 18.0 K/UL (4.8-10.8) H Red Blood Count 2.70 M/UL (4.70-6.10) L Hemoglobin 8.8 G/DL (14.2-18.0) L Hematocrit 25.7 % (42.0-52.0) L Mean Corpuscular Volume 95 FL (80-99) Mean Corpuscular Hemoglobin 32.5 PG (27.0-31.0) H Mean Corpuscular Hemoglobin Concent 34.1 G/DL (32.0-36.0) Red Cell Distribution Width 15.8 % (11.6-14.8) H Platelet Count 240 K/UL (150-450) Mean Platelet Volume 5.1 FL (6.5-10.1) L Neutrophils (%) (Auto) 73.9 % (45.0-75.0) Lymphocytes (%) (Auto) 5.4 % (20.0-45.0) L Monocytes (%) (Auto) 15.5 % (1.0-10.0) H Eosinophils (%) (Auto) 1.8 % (0.0-3.0) Basophils (%) (Auto) 3.4 % (0.0-2.0) H Sodium Level 139 mEQ/L (135-145) 143 mEQ/L (135-145) Potassium Level 4.3 mEQ/L (3.4-4.9) 4.3 mEQ/L (3.4-4.9) Chloride Level 96 mEQ/L (98-107) L 98 mEQ/L (98-107) Carbon Dioxide Level 25 mEQ/L (20-30) 24 mEQ/L (20-30) Anion Gap 18 (5-15) H 21 (5-15) H Blood Urea Nitrogen 39 mg/dL (7-23) H 51 mg/dL (7-23) H Creatinine 4.2 mg/dL (0.7-1.2) H 5.0 mg/dL (0.7-1.2) H Estimat Glomerular Filtration Rate 14.1 mL/min (>60) 11.5 mL/min (>60) Glucose Level 110 mg/dL (74-106) H 82 mg/dL (74-106) Calcium Level 8.9 mg/dL (8.6-10.2) 9.6 mg/dL (8.6-10.2) Phosphorus Level 3.6 mg/dL (2.5-4.8) 5.3 mg/dL (2.5-4.8) H Magnesium Level 1.9 mg/dL (1.7-2.5) HUSSEIN CAGE Oct 05, 2016 12:07
[2016-10-05] MEDS ORDERED: LORazepam Inj 2mg/ml 1ml IV PRN (12:30)
--- NOTE | 2016-10-05 13:00 | Internal Med Progress Note ---
Subjective Date of Service: Oct 05, 2016 Physician Name ClancyFiliberto calle Attending Physician Harrison Delatorre Current Medications Medications (Trade) Dose Ordered Sig/Mark Route PRN Reason Start Time Stop Time Status Last Admin Dose Admin Acetaminophen 650 mg 650 mg Q4H PRN GT Mild Pain/Temp > 100.5 10/05/16 02:45 11/04/16 02:44 Amlodipine Besylate (Norvasc) 10 mg DAILY GT 09/27/16 09:00 10/27/16 08:59 10/05/16 08:36 Bethanechol Chloride (Urecholine) 10 mg THREE TIMES A DAY GT 10/05/16 09:00 11/04/16 08:59 10/05/16 12:14 Chlorhexidine Gluconate (Lakshmi-Hex 2%) 1 applic Q24H TOPIC 09/26/16 21:00 10/26/16 20:59 10/04/16 21:09 Dextrose (D10w) 1,000 ml @ 0 mls/hr Q24H PRN IV PN interrupted or unavailable 09/28/16 21:00 10/28/16 20:59 Dextrose STAT PRN IV Hypoglycemia 09/28/16 12:00 10/28/16 11:59 10/04/16 11:49 Epoetin Kiko (Procrit (for ESRD on dialysis)) 10,000 units THU-THU-THU SUBQ 09/29/16 21:00 10/29/16 20:59 10/03/16 20:49 Fat Emulsion Intravenous/Amino Acids/ Electrolytes/ Dextrose (Intralipids/Tpn) 1,608 ml @ 67 mls/hr Q24H IV 10/03/16 21:00 10/05/16 20:59 10/04/16 21:11 Fat Emulsion Intravenous/Amino Acids/ Electrolytes/ Dextrose (Intralipids/Tpn) 1,608 ml @ 67 mls/hr Q24H IV 10/05/16 21:00 11/04/16 20:59 Heparin Sodium (Porcine) (Heparin 5000 units/ml) 5,000 units EVERY 12 HOURS SUBQ 09/26/16 21:00 10/26/16 20:59 10/05/16 08:34 Insulin Aspart (NovoLOG) EVERY 6 HOURS SUBQ 09/26/16 12:00 10/26/16 11:59 10/05/16 12:16 Lansoprazole (Prevacid) 30 mg DAILY GT 09/27/16 09:00 10/27/16 08:59 10/05/16 08:36 Lorazepam (Ativan 2mg/ml 1ml) 1 mg Q4H PRN IV For Anxiety 10/05/16 12:30 10/12/16 12:29 Lorazepam 1 mg 1 mg DAILYPRN PRN IV agitation prior to HD 10/02/16 10:30 10/09/16 10:29 10/05/16 12:40 Metoclopramide HCl (Reglan) 5 mg Q6HR GT 10/05/16 06:00 11/04/16 05:59 10/05/16 12:14 Metronidazole (Flagyl) 500 mg EVERY 8 HOURS GT 10/05/16 06:00 10/06/16 05:59 10/05/16 05:01 Minoxidil (Loniten) 15 mg BID GT 09/26/16 18:00 10/26/16 17:59 10/05/16 08:35 Phenytoin (Dilantin) 300 mg Q12HR GT 09/26/16 21:00 10/26/16 20:59 10/05/16 08:36 Phenytoin/Sodium Chloride (Dilantin/Sodium Chloride) 120 ml @ 120 mls/hr POSTHD IVPB 09/26/16 21:00 10/26/16 20:59 10/04/16 15:47 Phytonadione (Vitamin K) 10 mg QWEEK SUBQ 09/28/16 21:00 10/28/16 20:59 09/28/16 21:48 Piperacillin Sod/ Tazobactam Sod/ Dextrose (Zosyn/D5W) 55 ml @ 110 mls/hr Q8HR IVPB 09/28/16 14:00 10/06/16 13:59 10/05/16 05:01 Polyethylene Glycol (Miralax) 17 gm DAILYPRN PRN GT Constipation 10/05/16 02:45 11/04/16 02:44 Valproic Acid (Depakene) 1,000 mg POSTHD GT 09/26/16 11:00 10/26/16 10:59 10/04/16 13:35 Valproic Acid 1500 mg 1,500 mg Q12HR GT 09/26/16 21:00 10/26/16 20:59 10/05/16 08:35 Allergies: Coded Allergies: NIACIN (Verified Allergy, Unknown, ITCHING, 01/30/12) ROS Limited/Unobtainable: Yes Subjective 71 YO M admitted with volume overload and respiratory failure. S/P cardiopulmonary arrest. WILD. Intubated. Pancreatitis resolving. Cover for Int Brad-Dr Vail. Objective Last Vital Signs Date Time Temp Pulse Resp B/P Pulse Ox O2 Delivery O2 Flow Rate FiO2 10/05/16 12:00 96 10/05/16 12:00 30 10/05/16 11:25 27 10/05/16 08:36 111/45 10/05/16 08:00 97.7 100 Mechanical Ventilator 10/04/16 10:30 100.0 Laboratory Tests Test 10/04/16 16:30 10/05/16 05:20 White Blood Count 18.0 K/UL (4.8-10.8) H Red Blood Count 2.70 M/UL (4.70-6.10) L Hemoglobin 8.8 G/DL (14.2-18.0) L Hematocrit 25.7 % (42.0-52.0) L Mean Corpuscular Volume 95 FL (80-99) Mean Corpuscular Hemoglobin 32.5 PG (27.0-31.0) H Mean Corpuscular Hemoglobin Concent 34.1 G/DL (32.0-36.0) Red Cell Distribution Width 15.8 % (11.6-14.8) H Platelet Count 240 K/UL (150-450) Mean Platelet Volume 5.1 FL (6.5-10.1) L Neutrophils (%) (Auto) 73.9 % (45.0-75.0) Lymphocytes (%) (Auto) 5.4 % (20.0-45.0) L Monocytes (%) (Auto) 15.5 % (1.0-10.0) H Eosinophils (%) (Auto) 1.8 % (0.0-3.0) Basophils (%) (Auto) 3.4 % (0.0-2.0) H Sodium Level 139 mEQ/L (135-145) 143 mEQ/L (135-145) Potassium Level 4.3 mEQ/L (3.4-4.9) 4.3 mEQ/L (3.4-4.9) Chloride Level 96 mEQ/L (98-107) L 98 mEQ/L (98-107) Carbon Dioxide Level 25 mEQ/L (20-30) 24 mEQ/L (20-30) Anion Gap 18 (5-15) H 21 (5-15) H Blood Urea Nitrogen 39 mg/dL (7-23) H 51 mg/dL (7-23) H Creatinine 4.2 mg/dL (0.7-1.2) H 5.0 mg/dL (0.7-1.2) H Estimat Glomerular Filtration Rate 14.1 mL/min (>60) 11.5 mL/min (>60) Glucose Level 110 mg/dL (74-106) H 82 mg/dL (74-106) Calcium Level 8.9 mg/dL (8.6-10.2) 9.6 mg/dL (8.6-10.2) Phosphorus Level 3.6 mg/dL (2.5-4.8) 5.3 mg/dL (2.5-4.8) H Magnesium Level 1.9 mg/dL (1.7-2.5) Intake and Output 10/04/16 10/05/16 19:00 07:00 Intake Total 1129 ml 1087.86 ml Output Total 2500 ml Balance -1371 ml 1087.86 ml IV Total 979 ml 987.86 ml Other 150 ml 100 ml Hemodialysis UF 2500 ml # Bowel Movements 4 6 Objective General Appearance: WD/WN, lethargic EENT: PERRL/EOMI, normal ENT inspection, TMs normal Neck: non-tender, normal alignment, supple Cardiovascular: normal peripheral pulses, normal rate, regular rhythm, no gallop/murmur, no JVD Respiratory/Chest: Mech vent; chest wall non-tender, crackles/rales, rhonchi - bilaterally, expiratory wheezing Abdomen: normal bowel sounds, non tender, soft, no organomegaly Skin: normal pigmentation, warm/dry Assessment/Plan Problem List: (1) HTN (hypertension) Assessment & Plan: Cont amlodipine. (2) Hyperkalemia (3) Respiratory failure with hypoxia Assessment & Plan: Intubated and sedated. S/P Tracheostomy 09/24/16. (4) ESRD (end stage renal disease) Assessment & Plan: See nephrology note. Last Hemodialysis 10/04/16 per nephrology (5) CHF (congestive heart failure) (6) Diabetes mellitus Assessment & Plan: Cont novolog sliding scale. 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 (9) Anoxic encephalopathy syndrome Assessment & Plan: See neruo note. (10) Enterobacter sepsis (11) Pneumonia Assessment & Plan: Enterobacter. Cont zosyn and flagyl per ID (12) Anemia (13) Dysphagia Assessment & Plan: S/P PEG 09/23/16. (14) Cholecystitis, acute Assessment & Plan: See Surgery note. Not surgical candidate at this time. Continue zosyn and D/C flagyl per ID (15) Pancreatitis, acute Assessment & Plan: Improving amylase and lipase. See GI note. Hold tube feeds ; continue TPN. (16) Fever Assessment & Plan: See ID note. Status: unchanged Assessment/Plan Discharge to [facility] when accepted-see case management note. FILIBERTO CLANCY Oct 05, 2016 13:00
--- NOTE | 2016-10-05 14:23 | General Progress Note ---
Assessment/Plan Assessment/Plan Assessment - UGIB --> EGD showed GERD - possible DM gastroparesis - Acute pancreatitis, presumed due to gallstone - slow laboratory resolution, no pseudocyst/phlegmon on f/u CT - Leukocytosis - encephalopathy - resp failure - DM - renal failure - Anemia, presumed due to renal failure, slightly lower after GIB Recommendations - PPI - BID - transfuse PRN - Reglan / bethanecol - continue TPN - continue to follow amylase and lipase - will resume TF once amylase and lipase closer to resolution - abx per ID - I will be away for [address] Camarena will follow Subjective Allergies: Coded Allergies: NIACIN (Verified Allergy, Unknown, ITCHING, 01/30/12) Subjective no events overnight NPO on TPN no further UGIB labs pending / ordered restless Objective Last 24 Hour Vital Signs Date Time Temp Pulse Resp B/P Pulse Ox O2 Delivery O2 Flow Rate FiO2 10/05/16 13:27 90 26 35 10/05/16 12:00 96 10/05/16 12:00 97.9 97 22 157/44 100 Mechanical Ventilator 35 10/05/16 12:00 35 10/05/16 11:25 92 27 35 10/05/16 09:18 91 34 35 10/05/16 08:36 98 111/45 10/05/16 08:35 111/45 10/05/16 08:00 97.7 83 22 111/45 100 Mechanical Ventilator 35 10/05/16 08:00 35 10/05/16 08:00 91 10/05/16 07:11 85 23 35 10/05/16 06:00 95 10/05/16 04:44 92 26 35 10/05/16 04:38 97.5 99 20 96/43 100 Trach Collar 10/05/16 04:00 30 10/05/16 02:39 89 31 35 10/05/16 00:39 85 33 35 10/05/16 00:00 30 10/05/16 00:00 99 10/04/16 23:53 96.6 94 20 151/69 100 Trach Collar 10/04/16 22:45 98 33 35 10/04/16 20:46 94 27 35 10/04/16 20:00 30 10/04/16 20:00 95 10/04/16 19:39 99.9 92 21 138/43 100 Trach Collar 10/04/16 18:57 93 24 35 10/04/16 18:04 124/72 10/04/16 17:22 92 31 35 10/04/16 16:00 98.1 84 17 126/55 97 Mechanical Ventilator 50 10/04/16 16:00 30 10/04/16 16:00 97 10/04/16 15:17 96 39 35 Intake and Output 10/04/16 10/05/16 19:00 07:00 Intake Total 1129 ml 1087.86 ml Output Total 2500 ml Balance -1371 ml 1087.86 ml IV Total 979 ml 987.86 ml Other 150 ml 100 ml Hemodialysis UF 2500 ml # Bowel Movements 4 6 Laboratory Tests 10/04/16 16:30: White Blood Count 18.0H, Red Blood Count 2.70L, Hemoglobin 8.8L, Hematocrit 25.7L, Mean Corpuscular Volume 95, Mean Corpuscular Hemoglobin 32.5H, Mean Corpuscular Hemoglobin Concent 34.1, Red Cell Distribution Width 15.8H, Platelet Count 240, Mean Platelet Volume 5.1L, Neutrophils (%) (Auto) 73.9, Lymphocytes (%) (Auto) 5.4L, Monocytes (%) (Auto) 15.5H, Eosinophils (%) (Auto) 1.8, Basophils (%) (Auto) 3.4H, Sodium Level 139, Potassium Level 4.3, Chloride Level 96L, Carbon Dioxide Level 25, Anion Gap 18H, Blood Urea Nitrogen 39H, Creatinine 4.2H, Estimat Glomerular Filtration Rate 14.1, Glucose Level 110H, Calcium Level 8.9, Phosphorus Level 3.6 10/05/16 05:20: Sodium Level 143, Potassium Level 4.3, Chloride Level 98, Carbon Dioxide Level 24, Anion Gap 21H, Blood Urea Nitrogen 51H, Creatinine 5.0H, Estimat Glomerular Filtration Rate 11.5, Glucose Level 82, Calcium Level 9.6, Phosphorus Level 5.3H , Magnesium Level 1.9 Height (Feet): 5 Height (Inches): 9.00 Weight (Pounds): 174 Objective Intubated and restless NCAT, (+)trach supple Coarse BS RR soft ND abdomen, (+) umbilical hernia w/o change, (+) GT no edema unresponsive ANNE CURRAN Oct 05, 2016 14:23
[2016-10-05 15:21] LABS: BASOPHILS % (AUTO) 3.2 % (0.0-2.0); EOSINOPHILS % (AUTO) 2.3 % (0.0-3.0); LYMPHOCYTES % (AUTO) 12.1 % (20.0-45.0); MEAN CORPUSCULAR HEMOGLOBIN 32.7 PG (27.0-31.0); MEAN CORPUSCULAR VOLUME 96 FL (80-99); MEAN PLATELET VOLUME 5.2 FL (6.5-10.1); MONOCYTES % (AUTO) 16.4 % (1.0-10.0); PLATELET COUNT 319 K/UL (150-450); RED BLOOD COUNT 2.95 M/UL (4.70-6.10); RED CELL DISTRIBUTION WIDTH 15.9 % (11.6-14.8); WHITE BLOOD COUNT 16.3 K/UL (4.8-10.8)
[2016-10-05 15:57] LABS: ALBUMIN/GLOBULIN RATIO 0.7 (1.0-2.7); CALCIUM 9.6 mg/dL (8.6-10.2); CREATININE 5.3 mg/dL (0.7-1.2); GLOMERULAR FILTRATION RATE 10.8 mL/min (>60); POTASSIUM 4.8 mEQ/L (3.4-4.9); TOTAL PROTEIN 6.5 g/dL (6.6-8.7)
[2016-10-05 16:00] VITALS: BP 150/48
--- NOTE | 2016-10-05 16:20 | Pulmonology Progress Note ---
Assessment/Plan Assessment/Plan 1. Status post cardiac arrest. 2. Renal failure with hyperkalemia. 3. Respiratory failure. 4. Anoxic encephalopathy. 5. Status epilepticus 6. Coronary artery disease. 7. History of cardiomyopathy. 8. Diabetes. 9. Hypertension. 10 Pancreatitis no weaning attempts trach and vent dependent cont TPN, NPO at this time nebs and suction monitor BP, pressors if MAP less than 65 mmhg wound care DVT prophylaxis HD per renal continue abx prognosis guarded disc w RACHEL dixon and family will need placement Subjective ROS Limited/Unobtainable: Yes Allergies: Coded Allergies: NIACIN (Verified Allergy, Unknown, ITCHING, 01/30/12) Subjective no evetns remains on the vent unresponsive to me, nonpurposeful movements, agitated this am no reports of cp nv or bleeding tolerating TF bs better controlled Objective Last 24 Hour Vital Signs Date Time Temp Pulse Resp B/P Pulse Ox O2 Delivery O2 Flow Rate FiO2 10/05/16 16:00 35 10/05/16 16:00 94 10/05/16 15:15 96 36 35 10/05/16 13:27 90 26 35 10/05/16 12:00 96 10/05/16 12:00 97.9 97 22 157/44 100 Mechanical Ventilator 35 10/05/16 12:00 35 10/05/16 11:25 92 27 35 10/05/16 09:18 91 34 35 10/05/16 08:36 98 111/45 10/05/16 08:35 111/45 10/05/16 08:00 97.7 83 22 111/45 100 Mechanical Ventilator 35 10/05/16 08:00 35 10/05/16 08:00 91 10/05/16 07:11 85 23 35 10/05/16 06:00 95 10/05/16 04:44 92 26 35 10/05/16 04:38 97.5 99 20 96/43 100 Trach Collar 10/05/16 04:00 30 10/05/16 02:39 89 31 35 10/05/16 00:39 85 33 35 10/05/16 00:00 30 10/05/16 00:00 99 10/04/16 23:53 96.6 94 20 151/69 100 Trach Collar 10/04/16 22:45 98 33 35 10/04/16 20:46 94 27 35 10/04/16 20:00 30 10/04/16 20:00 95 10/04/16 19:39 99.9 92 21 138/43 100 Trach Collar 10/04/16 18:57 93 24 35 10/04/16 18:04 124/72 10/04/16 17:22 92 31 35 Intake and Output 10/04/16 10/05/16 19:00 07:00 Intake Total 1129 ml 1087.86 ml Output Total 2500 ml Balance -1371 ml 1087.86 ml IV Total 979 ml 987.86 ml Other 150 ml 100 ml Hemodialysis UF 2500 ml # Bowel Movements 4 6 HEENT: atraumatic Respiratory/Chest: lungs clear Cardiovascular: normal rate, regularly irregular Abdomen: soft, non tender, no organomegaly Extremities: other - edema Neurologic/Psychiatric: unresponsiveness Lymphatic: no neck adenopathy Musculoskeletal: normal muscle bulk Laboratory Tests 10/04/16 16:30: White Blood Count 18.0H, Red Blood Count 2.70L, Hemoglobin 8.8L, Hematocrit 25.7L, Mean Corpuscular Volume 95, Mean Corpuscular Hemoglobin 32.5H, Mean Corpuscular Hemoglobin Concent 34.1, Red Cell Distribution Width 15.8H, Platelet Count 240, Mean Platelet Volume 5.1L, Neutrophils (%) (Auto) 73.9, Lymphocytes (%) (Auto) 5.4L, Monocytes (%) (Auto) 15.5H, Eosinophils (%) (Auto) 1.8, Basophils (%) (Auto) 3.4H, Sodium Level 139, Potassium Level 4.3, Chloride Level 96L, Carbon Dioxide Level 25, Anion Gap 18H, Blood Urea Nitrogen 39H, Creatinine 4.2H, Estimat Glomerular Filtration Rate 14.1, Glucose Level 110H, Calcium Level 8.9, Phosphorus Level 3.6 10/05/16 05:20: Sodium Level 143, Potassium Level 4.3, Chloride Level 98, Carbon Dioxide Level 24, Anion Gap 21H, Blood Urea Nitrogen 51H, Creatinine 5.0H, Estimat Glomerular Filtration Rate 11.5, Glucose Level 82, Calcium Level 9.6, Phosphorus Level 5.3H , Magnesium Level 1.9 10/05/16 14:40: Sodium Level 142, Potassium Level 4.8, Chloride Level 96L, Carbon Dioxide Level 25, Anion Gap 21H, Blood Urea Nitrogen 57H, Creatinine 5.3H, Estimat Glomerular Filtration Rate 10.8, Glucose Level 84, Calcium Level 9.6, Total Bilirubin 0.3, Aspartate Amino Transf (AST/SGOT) 29, Alanine Aminotransferase (ALT/SGPT) 10, Alkaline Phosphatase 149H, Total Protein 6.5L, Albumin 2.8L, Globulin 3.7, Albumin/Globulin Ratio 0.7L, Amylase Level 259H, Lipase 290H 10/05/16 15:00: White Blood Count 16.3H, Red Blood Count 2.95L, Hemoglobin 9.6L, Hematocrit 28.3L, Mean Corpuscular Volume 96, Mean Corpuscular Hemoglobin 32.7H, Mean Corpuscular Hemoglobin Concent 34.0, Red Cell Distribution Width 15.9H, Platelet Count 319, Mean Platelet Volume 5.2L, Neutrophils (%) (Auto) 66.0, Lymphocytes (%) (Auto) 12.1L, Monocytes (%) (Auto) 16.4H, Eosinophils (%) (Auto ) 2.3, Basophils (%) (Auto) 3.2H Current Medications Medications (Trade) Dose Ordered Sig/Mark Route PRN Reason Start Time Stop Time Status Last Admin Dose Admin Acetaminophen 650 mg 650 mg Q4H PRN GT Mild Pain/Temp > 100.5 10/05/16 02:45 11/04/16 02:44 Amlodipine Besylate (Norvasc) 10 mg DAILY GT 09/27/16 09:00 10/27/16 08:59 10/05/16 08:36 Bethanechol Chloride (Urecholine) 10 mg THREE TIMES A DAY GT 10/05/16 09:00 11/04/16 08:59 10/05/16 12:14 Chlorhexidine Gluconate (Lakshmi-Hex 2%) 1 applic Q24H TOPIC 09/26/16 21:00 10/26/16 20:59 10/04/16 21:09 Dextrose (D10w) 1,000 ml @ 0 mls/hr Q24H PRN IV PN interrupted or unavailable 09/28/16 21:00 10/28/16 20:59 Dextrose STAT PRN IV Hypoglycemia 09/28/16 12:00 10/28/16 11:59 10/04/16 11:49 Epoetin Kiko (Procrit (for ESRD on dialysis)) 10,000 units THU-THU-THU SUBQ 09/29/16 21:00 10/29/16 20:59 10/03/16 20:49 Fat Emulsion Intravenous/Amino Acids/ Electrolytes/ Dextrose (Intralipids/Tpn) 1,608 ml @ 67 mls/hr Q24H IV 10/03/16 21:00 10/05/16 20:59 10/04/16 21:11 Fat Emulsion Intravenous/Amino Acids/ Electrolytes/ Dextrose (Intralipids/Tpn) 1,608 ml @ 67 mls/hr Q24H IV 10/05/16 21:00 11/04/16 20:59 Heparin Sodium (Porcine) (Heparin 5000 units/ml) 5,000 units EVERY 12 HOURS SUBQ 09/26/16 21:00 10/26/16 20:59 10/05/16 08:34 Insulin Aspart (NovoLOG) EVERY 6 HOURS SUBQ 09/26/16 12:00 10/26/16 11:59 10/05/16 12:16 Lansoprazole (Prevacid) 30 mg DAILY GT 09/27/16 09:00 10/27/16 08:59 10/05/16 08:36 Lorazepam (Ativan 2mg/ml 1ml) 1 mg Q4H PRN IV For Anxiety 10/05/16 12:30 10/12/16 12:29 Lorazepam 1 mg 1 mg DAILYPRN PRN IV agitation prior to HD 10/02/16 10:30 10/09/16 10:29 10/05/16 12:40 Metoclopramide HCl (Reglan) 5 mg Q6HR GT 10/05/16 06:00 11/04/16 05:59 10/05/16 12:14 Metronidazole (Flagyl) 500 mg EVERY 8 HOURS GT 10/05/16 06:00 10/06/16 05:59 10/05/16 14:27 Minoxidil (Loniten) 15 mg BID GT 09/26/16 18:00 10/26/16 17:59 10/05/16 08:35 Phenytoin (Dilantin) 300 mg Q12HR GT 09/26/16 21:00 10/26/16 20:59 10/05/16 08:36 Phenytoin/Sodium Chloride (Dilantin/Sodium Chloride) 120 ml @ 120 mls/hr POSTHD IVPB 09/26/16 21:00 10/26/16 20:59 10/04/16 15:47 Phytonadione (Vitamin K) 10 mg QWEEK SUBQ 09/28/16 21:00 10/28/16 20:59 09/28/16 21:48 Piperacillin Sod/ Tazobactam Sod/ Dextrose (Zosyn/D5W) 55 ml @ 110 mls/hr Q8HR IVPB 09/28/16 14:00 10/06/16 13:59 10/05/16 14:27 Polyethylene Glycol (Miralax) 17 gm DAILYPRN PRN GT Constipation 10/05/16 02:45 11/04/16 02:44 Valproic Acid (Depakene) 1,000 mg POSTHD GT 09/26/16 11:00 10/26/16 10:59 10/04/16 13:35 Valproic Acid 1500 mg 1,500 mg Q12HR GT 09/26/16 21:00 10/26/16 20:59 10/05/16 08:35 KOLTON RENTERIA DO Oct 05, 2016 16:20
[2016-10-05] MEDS ORDERED: Tubing IV Secondary IV ONE (17:05)
[2016-10-05] MEDS ORDERED: Tubing Blood Filter IV ONE (17:05)
[2016-10-05] MEDS ORDERED: NS 275ml ONE (17:05)
--- NOTE | 2016-10-05 18:41 | Nephrology Progress Note ---
Assessment/Plan Problem List: (1) ESRD (end stage renal disease) (2) Anoxic encephalopathy syndrome (3) Respiratory failure with hypoxia (4) CHF (congestive heart failure) (5) HTN (hypertension) (6) Acute pancreatitis Assessment: better (7) Pneumonia Assessment: enterobacter (8) Anemia Assessment: better Plan HD on Thursday Cont TPN Vent support follow labs abxs Discussed with RN and Pharmacist cont epogen Subjective Subjective Restless despite Ativan Objective Objective Last 24 Hour Vital Signs Date Time Temp Pulse Resp B/P Pulse Ox O2 Delivery O2 Flow Rate FiO2 10/05/16 17:35 150/53 10/05/16 17:25 102 36 35 10/05/16 16:00 35 10/05/16 16:00 94 10/05/16 16:00 98.1 95 24 150/48 100 Mechanical Ventilator 35 10/05/16 15:15 96 36 35 10/05/16 13:27 90 26 35 10/05/16 12:00 96 10/05/16 12:00 97.9 97 22 157/44 100 Mechanical Ventilator 35 10/05/16 12:00 35 10/05/16 11:25 92 27 35 10/05/16 09:18 91 34 35 10/05/16 08:36 98 111/45 10/05/16 08:35 111/45 10/05/16 08:00 97.7 83 22 111/45 100 Mechanical Ventilator 35 10/05/16 08:00 35 10/05/16 08:00 91 10/05/16 07:11 85 23 35 10/05/16 06:00 95 10/05/16 04:44 92 26 35 10/05/16 04:38 97.5 99 20 96/43 100 Trach Collar 10/05/16 04:00 30 10/05/16 02:39 89 31 35 10/05/16 00:39 85 33 35 10/05/16 00:00 30 10/05/16 00:00 99 10/04/16 23:53 96.6 94 20 151/69 100 Trach Collar 10/04/16 22:45 98 33 35 10/04/16 20:46 94 27 35 10/04/16 20:00 30 10/04/16 20:00 95 10/04/16 19:39 99.9 92 21 138/43 100 Trach Collar 10/04/16 18:57 93 24 35 Intake and Output 10/04/16 10/05/16 19:00 07:00 Intake Total 1129 ml 1087.86 ml Output Total 2500 ml Balance -1371 ml 1087.86 ml IV Total 979 ml 987.86 ml Other 150 ml 100 ml Hemodialysis UF 2500 ml # Bowel Movements 4 6 Laboratory Tests 10/05/16 05:20: Sodium Level 143, Potassium Level 4.3, Chloride Level 98, Carbon Dioxide Level 24, Anion Gap 21H, Blood Urea Nitrogen 51H, Creatinine 5.0H, Estimat Glomerular Filtration Rate 11.5, Glucose Level 82, Calcium Level 9.6, Phosphorus Level 5.3H , Magnesium Level 1.9 10/05/16 14:40: Sodium Level 142, Potassium Level 4.8, Chloride Level 96L, Carbon Dioxide Level 25, Anion Gap 21H, Blood Urea Nitrogen 57H, Creatinine 5.3H, Estimat Glomerular Filtration Rate 10.8, Glucose Level 84, Calcium Level 9.6, Total Bilirubin 0.3, Aspartate Amino Transf (AST/SGOT) 29, Alanine Aminotransferase (ALT/SGPT) 10, Alkaline Phosphatase 149H, Total Protein 6.5L, Albumin 2.8L, Globulin 3.7, Albumin/Globulin Ratio 0.7L, Amylase Level 259H, Lipase 290H 10/05/16 15:00: White Blood Count 16.3H, Red Blood Count 2.95L, Hemoglobin 9.6L, Hematocrit 28.3L, Mean Corpuscular Volume 96, Mean Corpuscular Hemoglobin 32.7H, Mean Corpuscular Hemoglobin Concent 34.0, Red Cell Distribution Width 15.9H, Platelet Count 319, Mean Platelet Volume 5.2L, Neutrophils (%) (Auto) 66.0, Lymphocytes (%) (Auto) 12.1L, Monocytes (%) (Auto) 16.4H, Eosinophils (%) (Auto ) 2.3, Basophils (%) (Auto) 3.2H Height (Feet): 5 Height (Inches): 9.00 Weight (Pounds): 174 Cardiovascular: normal rate Respiratory/Chest: rhonchi - bilaterally Extremities: other - no edema CANDICE BREAUX Oct 05, 2016 18:41
[2016-10-05 20:00] VITALS: BP 152/56
[2016-10-05] MEDS: Dyna-Hex 2% Top Sol 8oz TOPIC SCH (20:45)
[2016-10-05] MEDS: Phytonadione 10 mg/mL 1ml amp SUBQ SCH (20:46)
[2016-10-05] MEDS: FAT EMULSION 20% IV SCH ×2 (20:51→21:30)
[2016-10-05] MEDS: TPN IV SCH ×2 (20:51→21:30)
[2016-10-06] VITALS (7 sets, daily range): BP systolic 113–135; BP diastolic 44–89
[2016-10-06] MEDS: LORazepam Inj 2mg/ml 1ml IV PRN ×6 (02:47→22:54)
[2016-10-06] MEDS: NovoLOG Insulin Flexpen SUBQ SCH ×4 (05:07→23:39)
[2016-10-06] MEDS: Piperacillin/Tazobactam 2.25 GM in D5W 55 ML IVPB SCH ×3 (05:08→20:12)
[2016-10-06] MEDS: Metoclopramide 10mg/10ml Liq GT SCH ×4 (05:08→23:37)
[2016-10-06 05:26] LABS: BASOPHILS % (AUTO) 2.7 % (0.0-2.0); EOSINOPHILS % (AUTO) 2.7 % (0.0-3.0); LYMPHOCYTES % (AUTO) 9.3 % (20.0-45.0); MEAN CORPUSCULAR HEMOGLOBIN 33.5 PG (27.0-31.0); MEAN CORPUSCULAR HGB CONC 34.8 G/DL (32.0-36.0); MEAN CORPUSCULAR VOLUME 96 FL (80-99); MEAN PLATELET VOLUME 5.3 FL (6.5-10.1); MONOCYTES % (AUTO) 17.7 % (1.0-10.0); NEUTROPHILS % (AUTO) 67.7 % (45.0-75.0); PLATELET COUNT 294 K/UL (150-450); RED BLOOD COUNT 2.38 M/UL (4.70-6.10); WHITE BLOOD COUNT 13.6 K/UL (4.8-10.8)
[2016-10-06 05:58] LABS: AMYLASE 221 U/L (10-110); LIPASE 218 U/L (< 60)
[2016-10-06 06:00] LABS: CALCIUM 9.3 mg/dL (8.6-10.2); CREATININE 5.6 mg/dL (0.7-1.2); GLOMERULAR FILTRATION RATE 10.1 mL/min (>60); POTASSIUM 4.8 mEQ/L (3.4-4.9)
[2016-10-06] MEDS: Valproic Acid 250mg/5ml Liquid GT SCH ×2 (08:41→20:11)
[2016-10-06] MEDS: Phenytoin Susp 100mg/4ml GT SCH ×2 (08:42→20:10)
[2016-10-06] MEDS: Bethanechol 10mg Tab GT SCH ×3 (08:42→17:11)
[2016-10-06] MEDS: Minoxidil 10mg tab GT SCH ×2 (08:42→17:12)
[2016-10-06] MEDS: Heparin 5000 units/ml inj SUBQ SCH ×2 (08:44→20:15)
--- NOTE | 2016-10-06 09:40 | Internal Med Progress Note ---
Subjective Date of Service: Oct 06, 2016 Physician Name Filiberto Clancy Attending Physician Harrison Delatorre Current Medications Medications (Trade) Dose Ordered Sig/Mark Route PRN Reason Start Time Stop Time Status Last Admin Dose Admin Acetaminophen 650 mg 650 mg Q4H PRN GT Mild Pain/Temp > 100.5 10/05/16 02:45 11/04/16 02:44 Amlodipine Besylate (Norvasc) 10 mg DAILY GT 09/27/16 09:00 10/27/16 08:59 10/06/16 08:41 Bethanechol Chloride (Urecholine) 10 mg THREE TIMES A DAY GT 10/05/16 09:00 11/04/16 08:59 10/06/16 08:42 Chlorhexidine Gluconate (Lakshmi-Hex 2%) 1 applic Q24H TOPIC 09/26/16 21:00 10/26/16 20:59 10/05/16 20:45 Dextrose (D10w) 1,000 ml @ 0 mls/hr Q24H PRN IV PN interrupted or unavailable 09/28/16 21:00 10/28/16 20:59 Dextrose STAT PRN IV Hypoglycemia 09/28/16 12:00 10/28/16 11:59 10/04/16 11:49 Epoetin Kiko (Procrit (for ESRD on dialysis)) 10,000 units THU-WED-THU SUBQ 09/29/16 21:00 10/29/16 20:59 10/03/16 20:49 Fat Emulsion Intravenous/Amino Acids/ Electrolytes/ Dextrose (Intralipids/Tpn) 1,608 ml @ 67 mls/hr Q24H IV 10/05/16 21:00 11/04/16 20:59 10/05/16 21:30 Heparin Sodium (Porcine) (Heparin 5000 units/ml) 5,000 units EVERY 12 HOURS SUBQ 09/26/16 21:00 10/26/16 20:59 10/06/16 08:44 Insulin Aspart (NovoLOG) EVERY 6 HOURS SUBQ 09/26/16 12:00 10/26/16 11:59 10/05/16 12:16 Lansoprazole (Prevacid) 30 mg DAILY GT 09/27/16 09:00 10/27/16 08:59 10/06/16 08:40 Lorazepam (Ativan 2mg/ml 1ml) 1 mg Q2HR PRN IV For Anxiety 10/05/16 20:00 10/12/16 19:59 10/06/16 08:39 Metoclopramide HCl (Reglan) 5 mg Q6HR GT 10/05/16 06:00 11/04/16 05:59 10/06/16 05:08 Minoxidil (Loniten) 15 mg BID GT 09/26/16 18:00 10/26/16 17:59 10/06/16 08:42 Phenytoin (Dilantin) 300 mg Q12HR GT 09/26/16 21:00 10/26/16 20:59 10/06/16 08:42 Phenytoin/Sodium Chloride (Dilantin/Sodium Chloride) 120 ml @ 120 mls/hr POSTHD IVPB 09/26/16 21:00 10/26/16 20:59 10/04/16 15:47 Phytonadione (Vitamin K) 10 mg QWEEK SUBQ 09/28/16 21:00 10/28/16 20:59 10/05/16 20:46 Piperacillin Sod/ Tazobactam Sod/ Dextrose (Zosyn/D5W) 55 ml @ 110 mls/hr Q8HR IVPB 09/28/16 14:00 10/06/16 13:59 10/06/16 05:08 Polyethylene Glycol (Miralax) 17 gm DAILYPRN PRN GT Constipation 10/05/16 02:45 11/04/16 02:44 Valproic Acid (Depakene) 1,000 mg POSTHD GT 09/26/16 11:00 10/26/16 10:59 10/04/16 13:35 Valproic Acid 1500 mg 1,500 mg Q12HR GT 09/26/16 21:00 10/26/16 20:59 10/06/16 08:41 Allergies: Coded Allergies: NIACIN (Verified Allergy, Unknown, ITCHING, 01/30/12) ROS Limited/Unobtainable: Yes Subjective 71 YO M admitted with volume overload and respiratory failure. S/P cardiopulmonary arrest. WILD. Intubated. Pancreatitis resolving. Cover for Int Brad-Dr [facility]. Objective Last Vital Signs Date Time Temp Pulse Resp B/P Pulse Ox O2 Delivery O2 Flow Rate FiO2 10/06/16 09:29 99 15 35 10/06/16 08:42 135/89 10/06/16 08:00 97.9 100 Mechanical Ventilator 10/04/16 10:30 100.0 Laboratory Tests Test 10/05/16 14:40 10/05/16 15:00 10/06/16 04:20 Sodium Level 142 mEQ/L (135-145) 144 mEQ/L (135-145) Potassium Level 4.8 mEQ/L (3.4-4.9) 4.8 mEQ/L (3.4-4.9) Chloride Level 96 mEQ/L (98-107) L 99 mEQ/L (98-107) Carbon Dioxide Level 25 mEQ/L (20-30) 22 mEQ/L (20-30) Anion Gap 21 (5-15) H 23 (5-15) H Blood Urea Nitrogen 57 mg/dL (7-23) H 67 mg/dL (7-23) H Creatinine 5.3 mg/dL (0.7-1.2) H 5.6 mg/dL (0.7-1.2) H Estimat Glomerular Filtration Rate 10.8 mL/min (>60) 10.1 mL/min (>60) Glucose Level 84 mg/dL (74-106) 79 mg/dL (74-106) Calcium Level 9.6 mg/dL (8.6-10.2) 9.3 mg/dL (8.6-10.2) Total Bilirubin 0.3 mg/dL (0.0-1.2) Aspartate Amino Transf (AST/SGOT) 29 U/L (5-40) Alanine Aminotransferase (ALT/SGPT) 10 U/L (3-41) Alkaline Phosphatase 149 U/L (40-129) H Total Protein 6.5 g/dL (6.6-8.7) L Albumin 2.8 g/dL (3.5-5.2) L Globulin 3.7 g/dL Albumin/Globulin Ratio 0.7 (1.0-2.7) L Amylase Level 259 U/L (10-110) H 221 U/L (10-110) H Lipase 290 U/L (< 60) H 218 U/L (< 60) H White Blood Count 16.3 K/UL (4.8-10.8) H 13.6 K/UL (4.8-10.8) H Red Blood Count 2.95 M/UL (4.70-6.10) L 2.38 M/UL (4.70-6.10) L Hemoglobin 9.6 G/DL (14.2-18.0) L 8.0 G/DL (14.2-18.0) L Hematocrit 28.3 % (42.0-52.0) L 22.9 % (42.0-52.0) L Mean Corpuscular Volume 96 FL (80-99) 96 FL (80-99) Mean Corpuscular Hemoglobin 32.7 PG (27.0-31.0) H 33.5 PG (27.0-31.0) H Mean Corpuscular Hemoglobin Concent 34.0 G/DL (32.0-36.0) 34.8 G/DL (32.0-36.0) Red Cell Distribution Width 15.9 % (11.6-14.8) H 16.0 % (11.6-14.8) H Platelet Count 319 K/UL (150-450) 294 K/UL (150-450) Mean Platelet Volume 5.2 FL (6.5-10.1) L 5.3 FL (6.5-10.1) L Neutrophils (%) (Auto) 66.0 % (45.0-75.0) 67.7 % (45.0-75.0) Lymphocytes (%) (Auto) 12.1 % (20.0-45.0) L 9.3 % (20.0-45.0) L Monocytes (%) (Auto) 16.4 % (1.0-10.0) H 17.7 % (1.0-10.0) H Eosinophils (%) (Auto) 2.3 % (0.0-3.0) 2.7 % (0.0-3.0) Basophils (%) (Auto) 3.2 % (0.0-2.0) H 2.7 % (0.0-2.0) H Phosphorus Level 5.4 mg/dL (2.5-4.8) H Intake and Output 10/05/16 10/06/16 19:00 07:00 Intake Total 989 ml 813.5 ml Balance 989 ml 813.5 ml IV Total 859 ml 813.5 ml Other 130 ml # Voids 2 1 # Bowel Movements 8 4 Objective General Appearance: WD/WN, lethargic EENT: PERRL/EOMI, normal ENT inspection, TMs normal Neck: non-tender, normal alignment, supple Cardiovascular: normal peripheral pulses, normal rate, regular rhythm, no gallop/murmur, no JVD Respiratory/Chest: Mech vent; chest wall non-tender, crackles/rales, rhonchi - bilaterally, expiratory wheezing Abdomen: normal bowel sounds, non tender, soft, no organomegaly Skin: normal pigmentation, warm/dry Assessment/Plan Problem List: (1) HTN (hypertension) Assessment & Plan: Cont amlodipine. (2) Hyperkalemia (3) Respiratory failure with hypoxia Assessment & Plan: Intubated and sedated. S/P Tracheostomy 09/24/16. (4) ESRD (end stage renal disease) Assessment & Plan: See nephrology note. next Hemodialysis 10/07/16 per nephrology (5) CHF (congestive heart failure) (6) Diabetes mellitus Assessment & Plan: Cont novolog sliding scale. 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 Continue depakote and dilantin (9) Anoxic encephalopathy syndrome Assessment & Plan: See neruo note. (10) Enterobacter sepsis (11) Pneumonia Assessment & Plan: Enterobacter. Cont zosyn and flagyl per ID (12) Anemia (13) Dysphagia Assessment & Plan: S/P PEG 09/23/16. (14) Cholecystitis, acute Assessment & Plan: See Surgery note. Not surgical candidate at this time. Continue zosyn and flagyl per ID (15) Pancreatitis, acute Assessment & Plan: Improving amylase and lipase. See GI note. Hold tube feeds ; continue TPN. (16) Fever Assessment & Plan: See ID note. Status: not improved Assessment/Plan Discharge to [facility] when accepted-see case management note. FILIBERTO CLANCY Oct 06, 2016 09:40
--- NOTE | 2016-10-06 11:51 | Cardiology Progress Note ---
Assessment/Plan Assessment/Plan cardiopulm arrest anoxic encephalopathy esrd on hd noncompliant with dialysis htn chronic diastolic failure hx cad status epilepticus fever UGIB possible DM gastroparesis Acute pancreatitis, presumed due to gallstone pancreatic enzyme on down trend dialysis bp seems ok now hgb low agian Subjective Subjective on vent not comminicative not responsive moves around sitter at bedside to help prevent self inflicted problems Objective Last 24 Hour Vital Signs Date Time Temp Pulse Resp B/P Pulse Ox O2 Delivery O2 Flow Rate FiO2 10/06/16 11:19 88 18 35 10/06/16 09:29 99 15 35 10/06/16 08:42 135/89 10/06/16 08:41 95 135/89 10/06/16 08:00 97.9 95 32 135/89 100 Mechanical Ventilator 30 10/06/16 08:00 93 10/06/16 08:00 35 10/06/16 06:56 94 19 35 10/06/16 05:02 100 28 35 10/06/16 04:00 98.1 81 20 130/85 97 Mechanical Ventilator 35 10/06/16 04:00 35 10/06/16 03:42 96 10/06/16 03:20 95 19 35 10/06/16 00:49 103 37 35 10/06/16 00:03 98.4 79 20 127/83 97 Mechanical Ventilator 35 10/06/16 00:00 35 10/06/16 00:00 98 10/05/16 22:41 97 26 35 10/05/16 21:20 98 31 35 10/05/16 20:00 98.4 98 20 152/56 Mechanical Ventilator 35 10/05/16 20:00 35 10/05/16 19:46 98 10/05/16 19:15 100 29 35 10/05/16 17:35 150/53 10/05/16 17:25 102 36 35 10/05/16 16:00 35 10/05/16 16:00 94 10/05/16 16:00 98.1 95 24 150/48 100 Mechanical Ventilator 35 10/05/16 15:15 96 36 35 10/05/16 13:27 90 26 35 10/05/16 12:00 96 10/05/16 12:00 97.9 97 22 157/44 100 Mechanical Ventilator 35 10/05/16 12:00 35 General Appearance: no apparent distress, agitated, on vent Intake and Output 10/05/16 10/06/16 19:00 07:00 Intake Total 989 ml 813.5 ml Balance 989 ml 813.5 ml IV Total 859 ml 813.5 ml Other 130 ml # Voids 2 1 # Bowel Movements 8 4 Laboratory Tests Test 10/05/16 14:40 10/05/16 15:00 10/06/16 04:20 Sodium Level 142 mEQ/L (135-145) 144 mEQ/L (135-145) Potassium Level 4.8 mEQ/L (3.4-4.9) 4.8 mEQ/L (3.4-4.9) Chloride Level 96 mEQ/L (98-107) L 99 mEQ/L (98-107) Carbon Dioxide Level 25 mEQ/L (20-30) 22 mEQ/L (20-30) Anion Gap 21 (5-15) H 23 (5-15) H Blood Urea Nitrogen 57 mg/dL (7-23) H 67 mg/dL (7-23) H Creatinine 5.3 mg/dL (0.7-1.2) H 5.6 mg/dL (0.7-1.2) H Estimat Glomerular Filtration Rate 10.8 mL/min (>60) 10.1 mL/min (>60) Glucose Level 84 mg/dL (74-106) 79 mg/dL (74-106) Calcium Level 9.6 mg/dL (8.6-10.2) 9.3 mg/dL (8.6-10.2) Total Bilirubin 0.3 mg/dL (0.0-1.2) Aspartate Amino Transf (AST/SGOT) 29 U/L (5-40) Alanine Aminotransferase (ALT/SGPT) 10 U/L (3-41) Alkaline Phosphatase 149 U/L (40-129) H Total Protein 6.5 g/dL (6.6-8.7) L Albumin 2.8 g/dL (3.5-5.2) L Globulin 3.7 g/dL Albumin/Globulin Ratio 0.7 (1.0-2.7) L Amylase Level 259 U/L (10-110) H 221 U/L (10-110) H Lipase 290 U/L (< 60) H 218 U/L (< 60) H White Blood Count 16.3 K/UL (4.8-10.8) H 13.6 K/UL (4.8-10.8) H Red Blood Count 2.95 M/UL (4.70-6.10) L 2.38 M/UL (4.70-6.10) L Hemoglobin 9.6 G/DL (14.2-18.0) L 8.0 G/DL (14.2-18.0) L Hematocrit 28.3 % (42.0-52.0) L 22.9 % (42.0-52.0) L Mean Corpuscular Volume 96 FL (80-99) 96 FL (80-99) Mean Corpuscular Hemoglobin 32.7 PG (27.0-31.0) H 33.5 PG (27.0-31.0) H Mean Corpuscular Hemoglobin Concent 34.0 G/DL (32.0-36.0) 34.8 G/DL (32.0-36.0) Red Cell Distribution Width 15.9 % (11.6-14.8) H 16.0 % (11.6-14.8) H Platelet Count 319 K/UL (150-450) 294 K/UL (150-450) Mean Platelet Volume 5.2 FL (6.5-10.1) L 5.3 FL (6.5-10.1) L Neutrophils (%) (Auto) 66.0 % (45.0-75.0) 67.7 % (45.0-75.0) Lymphocytes (%) (Auto) 12.1 % (20.0-45.0) L 9.3 % (20.0-45.0) L Monocytes (%) (Auto) 16.4 % (1.0-10.0) H 17.7 % (1.0-10.0) H Eosinophils (%) (Auto) 2.3 % (0.0-3.0) 2.7 % (0.0-3.0) Basophils (%) (Auto) 3.2 % (0.0-2.0) H 2.7 % (0.0-2.0) H Phosphorus Level 5.4 mg/dL (2.5-4.8) H HUSSEIN CAGE Oct 06, 2016 11:51
--- NOTE | 2016-10-06 12:06 | Nephrology Progress Note ---
Assessment/Plan Problem List: (1) ESRD (end stage renal disease) (2) Anoxic encephalopathy syndrome (3) Respiratory failure with hypoxia (4) CHF (congestive heart failure) (5) HTN (hypertension) (6) Acute pancreatitis Assessment: better (7) Pneumonia Assessment: enterobacter (8) Anemia Assessment: significant drop error ? Plan HD tomorrow Cont TPN Vent support follow labs abxs Transfuse if HCT remains low cont epogen Subjective Subjective Restless despite Ativan Objective Objective Last 24 Hour Vital Signs Date Time Temp Pulse Resp B/P Pulse Ox O2 Delivery O2 Flow Rate FiO2 10/06/16 11:19 88 18 35 10/06/16 09:29 99 15 35 10/06/16 08:42 135/89 10/06/16 08:41 95 135/89 10/06/16 08:00 97.9 95 32 135/89 100 Mechanical Ventilator 30 10/06/16 08:00 93 10/06/16 08:00 35 10/06/16 06:56 94 19 35 10/06/16 05:02 100 28 35 10/06/16 04:00 98.1 81 20 130/85 97 Mechanical Ventilator 35 10/06/16 04:00 35 10/06/16 03:42 96 10/06/16 03:20 95 19 35 10/06/16 00:49 103 37 35 10/06/16 00:03 98.4 79 20 127/83 97 Mechanical Ventilator 35 10/06/16 00:00 35 10/06/16 00:00 98 10/05/16 22:41 97 26 35 10/05/16 21:20 98 31 35 10/05/16 20:00 98.4 98 20 152/56 Mechanical Ventilator 35 10/05/16 20:00 35 10/05/16 19:46 98 10/05/16 19:15 100 29 35 10/05/16 17:35 150/53 10/05/16 17:25 102 36 35 10/05/16 16:00 35 10/05/16 16:00 94 10/05/16 16:00 98.1 95 24 150/48 100 Mechanical Ventilator 35 10/05/16 15:15 96 36 35 10/05/16 13:27 90 26 35 Intake and Output 10/05/16 10/06/16 19:00 07:00 Intake Total 989 ml 813.5 ml Balance 989 ml 813.5 ml IV Total 859 ml 813.5 ml Other 130 ml # Voids 2 1 # Bowel Movements 8 4 Laboratory Tests 10/05/16 14:40: Sodium Level 142, Potassium Level 4.8, Chloride Level 96L, Carbon Dioxide Level 25, Anion Gap 21H, Blood Urea Nitrogen 57H, Creatinine 5.3H, Estimat Glomerular Filtration Rate 10.8, Glucose Level 84, Calcium Level 9.6, Total Bilirubin 0.3, Aspartate Amino Transf (AST/SGOT) 29, Alanine Aminotransferase (ALT/SGPT) 10, Alkaline Phosphatase 149H, Total Protein 6.5L, Albumin 2.8L, Globulin 3.7, Albumin/Globulin Ratio 0.7L, Amylase Level 259H, Lipase 290H 10/05/16 15:00: White Blood Count 16.3H, Red Blood Count 2.95L, Hemoglobin 9.6L, Hematocrit 28.3L, Mean Corpuscular Volume 96, Mean Corpuscular Hemoglobin 32.7H, Mean Corpuscular Hemoglobin Concent 34.0, Red Cell Distribution Width 15.9H, Platelet Count 319, Mean Platelet Volume 5.2L, Neutrophils (%) (Auto) 66.0, Lymphocytes (%) (Auto) 12.1L, Monocytes (%) (Auto) 16.4H, Eosinophils (%) (Auto ) 2.3, Basophils (%) (Auto) 3.2H 10/06/16 04:20: Sodium Level 144, Potassium Level 4.8, Chloride Level 99, Carbon Dioxide Level 22, Anion Gap 23H, Blood Urea Nitrogen 67H, Creatinine 5.6H, Estimat Glomerular Filtration Rate 10.1, Glucose Level 79, Calcium Level 9.3, Amylase Level 221H, Lipase 218H, White Blood Count 13.6H, Red Blood Count 2.38L, Hemoglobin 8.0L, Hematocrit 22.9L, Mean Corpuscular Volume 96, Mean Corpuscular Hemoglobin 33.5H , Mean Corpuscular Hemoglobin Concent 34.8, Red Cell Distribution Width 16.0H, Platelet Count 294, Mean Platelet Volume 5.3L, Neutrophils (%) (Auto) 67.7, Lymphocytes (%) (Auto) 9.3L, Monocytes (%) (Auto) 17.7H, Eosinophils (%) (Auto) 2.7, Basophils (%) (Auto) 2.7H, Phosphorus Level 5.4H Height (Feet): 5 Height (Inches): 9.00 Weight (Pounds): 191 Cardiovascular: normal rate Respiratory/Chest: rhonchi - bilaterally Extremities: other - no edema CANDICE BREAUX Oct 06, 2016 12:06
--- NOTE | 2016-10-06 12:25 | Infectious Diseases Prog Note ---
Assessment/Plan Assessment/Plan antibiotics : zosyn A 1. enterobacter pneumonia /p rx 2. respiratory failure 3. renal failure 4. leucocytosis improving 5. s/p cardiac arrest 6. acute pancreatitis resolving P 1. continue zosyn 2. will follow up cultures Subjective ROS Limited/Unobtainable: Yes Allergies: Coded Allergies: NIACIN (Verified Allergy, Unknown, ITCHING, 01/30/12) Objective Vital Signs Last 24 Hour Vital Signs Date Time Temp Pulse Resp B/P Pulse Ox O2 Delivery O2 Flow Rate FiO2 10/06/16 12:00 98.1 91 14 128/44 100 Mechanical Ventilator 35 10/06/16 11:19 88 18 35 10/06/16 09:29 99 15 35 10/06/16 08:42 135/89 10/06/16 08:41 95 135/89 10/06/16 08:00 97.9 95 32 135/89 100 Mechanical Ventilator 30 10/06/16 08:00 93 10/06/16 08:00 35 10/06/16 06:56 94 19 35 10/06/16 05:02 100 28 35 10/06/16 04:00 98.1 81 20 130/85 97 Mechanical Ventilator 35 10/06/16 04:00 35 10/06/16 03:42 96 10/06/16 03:20 95 19 35 10/06/16 00:49 103 37 35 10/06/16 00:03 98.4 79 20 127/83 97 Mechanical Ventilator 35 10/06/16 00:00 35 10/06/16 00:00 98 10/05/16 22:41 97 26 35 10/05/16 21:20 98 31 35 10/05/16 20:00 98.4 98 20 152/56 Mechanical Ventilator 35 10/05/16 20:00 35 10/05/16 19:46 98 10/05/16 19:15 100 29 35 10/05/16 17:35 150/53 10/05/16 17:25 102 36 35 10/05/16 16:00 35 10/05/16 16:00 94 10/05/16 16:00 98.1 95 24 150/48 100 Mechanical Ventilator 35 10/05/16 15:15 96 36 35 10/05/16 13:27 90 26 35 Height (Feet): 5 Height (Inches): 9.00 Weight (Pounds): 191 HEENT: status post trach Respiratory/Chest: lungs clear Cardiovascular: normal rate, regular rhythm, no gallop/murmur Abdomen: soft, non tender, other - GT Extremities: no edema, other - right subclavian Laboratory Tests Test 10/05/16 14:40 10/05/16 15:00 10/06/16 04:20 Sodium Level 142 mEQ/L (135-145) 144 mEQ/L (135-145) Potassium Level 4.8 mEQ/L (3.4-4.9) 4.8 mEQ/L (3.4-4.9) Chloride Level 96 mEQ/L (98-107) L 99 mEQ/L (98-107) Carbon Dioxide Level 25 mEQ/L (20-30) 22 mEQ/L (20-30) Anion Gap 21 (5-15) H 23 (5-15) H Blood Urea Nitrogen 57 mg/dL (7-23) H 67 mg/dL (7-23) H Creatinine 5.3 mg/dL (0.7-1.2) H 5.6 mg/dL (0.7-1.2) H Estimat Glomerular Filtration Rate 10.8 mL/min (>60) 10.1 mL/min (>60) Glucose Level 84 mg/dL (74-106) 79 mg/dL (74-106) Calcium Level 9.6 mg/dL (8.6-10.2) 9.3 mg/dL (8.6-10.2) Total Bilirubin 0.3 mg/dL (0.0-1.2) Aspartate Amino Transf (AST/SGOT) 29 U/L (5-40) Alanine Aminotransferase (ALT/SGPT) 10 U/L (3-41) Alkaline Phosphatase 149 U/L (40-129) H Total Protein 6.5 g/dL (6.6-8.7) L Albumin 2.8 g/dL (3.5-5.2) L Globulin 3.7 g/dL Albumin/Globulin Ratio 0.7 (1.0-2.7) L Amylase Level 259 U/L (10-110) H 221 U/L (10-110) H Lipase 290 U/L (< 60) H 218 U/L (< 60) H White Blood Count 16.3 K/UL (4.8-10.8) H 13.6 K/UL (4.8-10.8) H Red Blood Count 2.95 M/UL (4.70-6.10) L 2.38 M/UL (4.70-6.10) L Hemoglobin 9.6 G/DL (14.2-18.0) L 8.0 G/DL (14.2-18.0) L Hematocrit 28.3 % (42.0-52.0) L 22.9 % (42.0-52.0) L Mean Corpuscular Volume 96 FL (80-99) 96 FL (80-99) Mean Corpuscular Hemoglobin 32.7 PG (27.0-31.0) H 33.5 PG (27.0-31.0) H Mean Corpuscular Hemoglobin Concent 34.0 G/DL (32.0-36.0) 34.8 G/DL (32.0-36.0) Red Cell Distribution Width 15.9 % (11.6-14.8) H 16.0 % (11.6-14.8) H Platelet Count 319 K/UL (150-450) 294 K/UL (150-450) Mean Platelet Volume 5.2 FL (6.5-10.1) L 5.3 FL (6.5-10.1) L Neutrophils (%) (Auto) 66.0 % (45.0-75.0) 67.7 % (45.0-75.0) Lymphocytes (%) (Auto) 12.1 % (20.0-45.0) L 9.3 % (20.0-45.0) L Monocytes (%) (Auto) 16.4 % (1.0-10.0) H 17.7 % (1.0-10.0) H Eosinophils (%) (Auto) 2.3 % (0.0-3.0) 2.7 % (0.0-3.0) Basophils (%) (Auto) 3.2 % (0.0-2.0) H 2.7 % (0.0-2.0) H Phosphorus Level 5.4 mg/dL (2.5-4.8) H LEWIS ADAMS Oct 06, 2016 12:25
--- NOTE | 2016-10-06 12:42 | Pulmonology Progress Note ---
Assessment/Plan Assessment/Plan 1. Status post cardiac arrest. 2. Renal failure with hyperkalemia. 3. Respiratory failure. 4. Anoxic encephalopathy. 5. Status epilepticus 6. Coronary artery disease. 7. History of cardiomyopathy. 8. Diabetes. 9. Hypertension. 10 Pancreatitis no weaning attempts trach and vent dependent cont TPN until pancreatitis resolves disc w RN CXR Subjective ROS Limited/Unobtainable: Yes Allergies: Coded Allergies: NIACIN (Verified Allergy, Unknown, ITCHING, 01/30/12) Subjective agitated Objective Last 24 Hour Vital Signs Date Time Temp Pulse Resp B/P Pulse Ox O2 Delivery O2 Flow Rate FiO2 10/06/16 12:00 35 10/06/16 12:00 98.1 91 14 128/44 100 Mechanical Ventilator 35 10/06/16 11:19 88 18 35 10/06/16 09:29 99 15 35 10/06/16 08:42 135/89 10/06/16 08:41 95 135/89 10/06/16 08:00 97.9 95 32 135/89 100 Mechanical Ventilator 30 10/06/16 08:00 93 10/06/16 08:00 35 10/06/16 06:56 94 19 35 10/06/16 05:02 100 28 35 10/06/16 04:00 98.1 81 20 130/85 97 Mechanical Ventilator 35 10/06/16 04:00 35 10/06/16 03:42 96 10/06/16 03:20 95 19 35 10/06/16 00:49 103 37 35 10/06/16 00:03 98.4 79 20 127/83 97 Mechanical Ventilator 35 10/06/16 00:00 35 10/06/16 00:00 98 10/05/16 22:41 97 26 35 10/05/16 21:20 98 31 35 10/05/16 20:00 98.4 98 20 152/56 Mechanical Ventilator 35 10/05/16 20:00 35 10/05/16 19:46 98 10/05/16 19:15 100 29 35 10/05/16 17:35 150/53 10/05/16 17:25 102 36 35 10/05/16 16:00 35 10/05/16 16:00 94 10/05/16 16:00 98.1 95 24 150/48 100 Mechanical Ventilator 35 10/05/16 15:15 96 36 35 10/05/16 13:27 90 26 35 Intake and Output 10/05/16 10/06/16 19:00 07:00 Intake Total 989 ml 813.5 ml Balance 989 ml 813.5 ml IV Total 859 ml 813.5 ml Other 130 ml # Voids 2 1 # Bowel Movements 8 4 Objective poorly responsive General Appearance: no acute distress Respiratory/Chest: lungs clear Cardiovascular: normal rate Laboratory Tests 10/05/16 14:40: Sodium Level 142, Potassium Level 4.8, Chloride Level 96L, Carbon Dioxide Level 25, Anion Gap 21H, Blood Urea Nitrogen 57H, Creatinine 5.3H, Estimat Glomerular Filtration Rate 10.8, Glucose Level 84, Calcium Level 9.6, Total Bilirubin 0.3, Aspartate Amino Transf (AST/SGOT) 29, Alanine Aminotransferase (ALT/SGPT) 10, Alkaline Phosphatase 149H, Total Protein 6.5L, Albumin 2.8L, Globulin 3.7, Albumin/Globulin Ratio 0.7L, Amylase Level 259H, Lipase 290H 10/05/16 15:00: White Blood Count 16.3H, Red Blood Count 2.95L, Hemoglobin 9.6L, Hematocrit 28.3L, Mean Corpuscular Volume 96, Mean Corpuscular Hemoglobin 32.7H, Mean Corpuscular Hemoglobin Concent 34.0, Red Cell Distribution Width 15.9H, Platelet Count 319, Mean Platelet Volume 5.2L, Neutrophils (%) (Auto) 66.0, Lymphocytes (%) (Auto) 12.1L, Monocytes (%) (Auto) 16.4H, Eosinophils (%) (Auto ) 2.3, Basophils (%) (Auto) 3.2H 10/06/16 04:20: Sodium Level 144, Potassium Level 4.8, Chloride Level 99, Carbon Dioxide Level 22, Anion Gap 23H, Blood Urea Nitrogen 67H, Creatinine 5.6H, Estimat Glomerular Filtration Rate 10.1, Glucose Level 79, Calcium Level 9.3, Amylase Level 221H, Lipase 218H, White Blood Count 13.6H, Red Blood Count 2.38L, Hemoglobin 8.0L, Hematocrit 22.9L, Mean Corpuscular Volume 96, Mean Corpuscular Hemoglobin 33.5H , Mean Corpuscular Hemoglobin Concent 34.8, Red Cell Distribution Width 16.0H, Platelet Count 294, Mean Platelet Volume 5.3L, Neutrophils (%) (Auto) 67.7, Lymphocytes (%) (Auto) 9.3L, Monocytes (%) (Auto) 17.7H, Eosinophils (%) (Auto) 2.7, Basophils (%) (Auto) 2.7H, Phosphorus Level 5.4H Current Medications Medications (Trade) Dose Ordered Sig/Mark Route PRN Reason Start Time Stop Time Status Last Admin Dose Admin Acetaminophen 650 mg 650 mg Q4H PRN GT Mild Pain/Temp > 100.5 10/05/16 02:45 11/04/16 02:44 Amlodipine Besylate (Norvasc) 10 mg DAILY GT 09/27/16 09:00 10/27/16 08:59 10/06/16 08:41 Bethanechol Chloride (Urecholine) 10 mg THREE TIMES A DAY GT 10/05/16 09:00 11/04/16 08:59 10/06/16 12:35 Chlorhexidine Gluconate (Lakshmi-Hex 2%) 1 applic Q24H TOPIC 09/26/16 21:00 10/26/16 20:59 10/05/16 20:45 Dextrose (D10w) 1,000 ml @ 0 mls/hr Q24H PRN IV PN interrupted or unavailable 09/28/16 21:00 10/28/16 20:59 Dextrose (Dextrose 50%) STAT PRN IV Hypoglycemia 09/28/16 12:00 10/28/16 11:59 10/04/16 11:49 Epoetin Kiko (Procrit (for ESRD on dialysis)) 10,000 units THU-THU-THU SUBQ 09/29/16 21:00 10/29/16 20:59 10/03/16 20:49 Fat Emulsion Intravenous/Amino Acids/ Electrolytes/ Dextrose (Intralipids/Tpn) 1,608 ml @ 67 mls/hr Q24H IV 10/05/16 21:00 11/04/16 20:59 10/05/16 21:30 Heparin Sodium (Porcine) (Heparin 5000 units/ml) 5,000 units EVERY 12 HOURS SUBQ 09/26/16 21:00 10/26/16 20:59 10/06/16 08:44 Heparin Sodium (Porcine) 2000 unit 2,000 unit ONCE IV 10/07/16 06:00 10/07/16 23:59 Insulin Aspart (NovoLOG) EVERY 6 HOURS SUBQ 09/26/16 12:00 10/26/16 11:59 10/05/16 12:16 Lansoprazole (Prevacid) 30 mg DAILY GT 09/27/16 09:00 10/27/16 08:59 10/06/16 08:40 Lorazepam 1 mg 1 mg Q2HR PRN IV For Anxiety 10/05/16 20:00 10/12/16 19:59 10/06/16 10:56 Metoclopramide HCl (Reglan) 5 mg Q6HR GT 10/05/16 06:00 11/04/16 05:59 10/06/16 12:36 Minoxidil (Loniten) 15 mg BID GT 09/26/16 18:00 10/26/16 17:59 10/06/16 08:42 Phenytoin (Dilantin) 300 mg Q12HR GT 09/26/16 21:00 10/26/16 20:59 10/06/16 08:42 Phenytoin/Sodium Chloride (Dilantin/Sodium Chloride) 120 ml @ 120 mls/hr POSTHD IVPB 09/26/16 21:00 10/26/16 20:59 10/04/16 15:47 Phytonadione (Vitamin K) 10 mg QWEEK SUBQ 09/28/16 21:00 10/28/16 20:59 10/05/16 20:46 Piperacillin Sod/ Tazobactam Sod/ Dextrose (Zosyn/D5W) 55 ml @ 110 mls/hr Q8HR IVPB 10/06/16 14:00 10/14/16 13:59 Polyethylene Glycol (Miralax) 17 gm DAILYPRN PRN GT Constipation 10/05/16 02:45 11/04/16 02:44 Sodium Chloride (Sodium Chloride 1000ml bag) 1,000 ml @ 500 mls/hr Q2H PRN IVLG sbp<90 during hd 10/07/16 06:00 10/07/16 23:59 Valproic Acid (Depakene) 1,000 mg POSTHD GT 09/26/16 11:00 10/26/16 10:59 10/04/16 13:35 Valproic Acid 1500 mg 1,500 mg Q12HR GT 09/26/16 21:00 10/26/16 20:59 10/06/16 08:41 CHLOE ESQUIVEL Oct 06, 2016 12:42
--- NOTE | 2016-10-06 13:44 | General Progress Note ---
Assessment/Plan Problem List: (1) HTN (hypertension) ICD Codes: I10 - Essential (primary) hypertension SNOMED: 29188548 (2) COPD (chronic obstructive pulmonary disease) ICD Codes: J44.9 - Chronic obstructive pulmonary disease, unspecified SNOMED: 27446002 (3) ESRD (end stage renal disease) ICD Codes: N18.6 - End stage renal disease SNOMED: 81365488 (4) Diabetes mellitus ICD Codes: E11.9 - Type 2 diabetes mellitus without complications SNOMED: 24365860 (5) Pancreatitis, acute ICD Codes: K85.90 - Acute pancreatitis without necrosis or infection, unspecified SNOMED: 498263904 Assessment/Plan Recommendations - PPI - BID - transfuse PRN - Reglan / bethanecol - continue TPN - continue to follow amylase and lipase - will resume TF once amylase and lipase closer to resolution - abx per ID Subjective ROS Limited/Unobtainable: No Allergies: Coded Allergies: NIACIN (Verified Allergy, Unknown, ITCHING, 01/30/12) Subjective no event Objective Last 24 Hour Vital Signs Date Time Temp Pulse Resp B/P Pulse Ox O2 Delivery O2 Flow Rate FiO2 10/06/16 13:20 97 29 35 10/06/16 12:00 35 10/06/16 12:00 98.1 91 14 128/44 100 Mechanical Ventilator 35 10/06/16 12:00 92 10/06/16 11:19 88 18 35 10/06/16 09:29 99 15 35 10/06/16 08:42 135/89 10/06/16 08:41 95 135/89 10/06/16 08:00 97.9 95 32 135/89 100 Mechanical Ventilator 30 10/06/16 08:00 93 10/06/16 08:00 35 10/06/16 06:56 94 19 35 10/06/16 05:02 100 28 35 10/06/16 04:00 98.1 81 20 130/85 97 Mechanical Ventilator 35 10/06/16 04:00 35 10/06/16 03:42 96 10/06/16 03:20 95 19 35 10/06/16 00:49 103 37 35 10/06/16 00:03 98.4 79 20 127/83 97 Mechanical Ventilator 35 10/06/16 00:00 35 10/06/16 00:00 98 10/05/16 22:41 97 26 35 10/05/16 21:20 98 31 35 10/05/16 20:00 98.4 98 20 152/56 Mechanical Ventilator 35 10/05/16 20:00 35 10/05/16 19:46 98 10/05/16 19:15 100 29 35 10/05/16 17:35 150/53 10/05/16 17:25 102 36 35 10/05/16 16:00 35 10/05/16 16:00 94 10/05/16 16:00 98.1 95 24 150/48 100 Mechanical Ventilator 35 10/05/16 15:15 96 36 35 Intake and Output 10/05/16 10/06/16 19:00 07:00 Intake Total 989 ml 813.5 ml Balance 989 ml 813.5 ml IV Total 859 ml 813.5 ml Other 130 ml # Voids 2 1 # Bowel Movements 8 4 Laboratory Tests 10/05/16 14:40: Sodium Level 142, Potassium Level 4.8, Chloride Level 96L, Carbon Dioxide Level 25, Anion Gap 21H, Blood Urea Nitrogen 57H, Creatinine 5.3H, Estimat Glomerular Filtration Rate 10.8, Glucose Level 84, Calcium Level 9.6, Total Bilirubin 0.3, Aspartate Amino Transf (AST/SGOT) 29, Alanine Aminotransferase (ALT/SGPT) 10, Alkaline Phosphatase 149H, Total Protein 6.5L, Albumin 2.8L, Globulin 3.7, Albumin/Globulin Ratio 0.7L, Amylase Level 259H, Lipase 290H 10/05/16 15:00: White Blood Count 16.3H, Red Blood Count 2.95L, Hemoglobin 9.6L, Hematocrit 28.3L, Mean Corpuscular Volume 96, Mean Corpuscular Hemoglobin 32.7H, Mean Corpuscular Hemoglobin Concent 34.0, Red Cell Distribution Width 15.9H, Platelet Count 319, Mean Platelet Volume 5.2L, Neutrophils (%) (Auto) 66.0, Lymphocytes (%) (Auto) 12.1L, Monocytes (%) (Auto) 16.4H, Eosinophils (%) (Auto ) 2.3, Basophils (%) (Auto) 3.2H 10/06/16 04:20: Sodium Level 144, Potassium Level 4.8, Chloride Level 99, Carbon Dioxide Level 22, Anion Gap 23H, Blood Urea Nitrogen 67H, Creatinine 5.6H, Estimat Glomerular Filtration Rate 10.1, Glucose Level 79, Calcium Level 9.3, Amylase Level 221H, Lipase 218H, White Blood Count 13.6H, Red Blood Count 2.38L, Hemoglobin 8.0L, Hematocrit 22.9L, Mean Corpuscular Volume 96, Mean Corpuscular Hemoglobin 33.5H , Mean Corpuscular Hemoglobin Concent 34.8, Red Cell Distribution Width 16.0H, Platelet Count 294, Mean Platelet Volume 5.3L, Neutrophils (%) (Auto) 67.7, Lymphocytes (%) (Auto) 9.3L, Monocytes (%) (Auto) 17.7H, Eosinophils (%) (Auto) 2.7, Basophils (%) (Auto) 2.7H, Phosphorus Level 5.4H Height (Feet): 5 Height (Inches): 9.00 Weight (Pounds): 191 General Appearance: no apparent distress EENT: normal ENT inspection Neck: supple Cardiovascular: normal rate Respiratory/Chest: decreased breath sounds Abdomen: non tender, soft, hypoactive bowel sounds Extremities: non-tender AYLIN MARSH Oct 06, 2016 13:44
[2016-10-06] MEDS: Dyna-Hex 2% Top Sol 8oz TOPIC SCH (20:10)
[2016-10-06] MEDS: Epogen (for ESRD on dialysis) SUBQ SCH (20:15)
[2016-10-06] MEDS: TPN IV SCH (20:19)
[2016-10-06] MEDS: FAT EMULSION 20% IV SCH (20:19)
[2016-10-07] VITALS: BP 126/55
[2016-10-07 04:00] VITALS: BP_SYST 130; BP_SYST 135; BP_DIAS 44; BP_DIAS 51
[2016-10-07 05:50] LABS: BASOPHILS % (AUTO) 3.1 % (0.0-2.0); LYMPHOCYTES % (AUTO) 12.2 % (20.0-45.0); MEAN CORPUSCULAR HEMOGLOBIN 32.6 PG (27.0-31.0); MEAN CORPUSCULAR VOLUME 96 FL (80-99); MEAN PLATELET VOLUME 5.3 FL (6.5-10.1); MONOCYTES % (AUTO) 17.2 % (1.0-10.0); NEUTROPHILS % (AUTO) 64.5 % (45.0-75.0); PLATELET COUNT 338 K/UL (150-450); RED BLOOD COUNT 2.46 M/UL (4.70-6.10); RED CELL DISTRIBUTION WIDTH 15.9 % (11.6-14.8); WHITE BLOOD COUNT 12.7 K/UL (4.8-10.8)
[2016-10-07] MEDS: Metoclopramide 10mg/10ml Liq GT SCH ×4 (05:56→23:41)
[2016-10-07] MEDS: Piperacillin/Tazobactam 2.25 GM in D5W 55 ML IVPB SCH ×3 (05:56→21:04)
[2016-10-07] MEDS: NovoLOG Insulin Flexpen SUBQ SCH ×4 (05:56→23:36)
[2016-10-07] MEDS ORDERED: Heparin Sod 1000 units/ml 10ml IV SCH (06:00)
[2016-10-07 06:07] LABS: AMYLASE 211 U/L (10-110); LIPASE 258 U/L (< 60)
[2016-10-07 06:18] LABS: ALBUMIN/GLOBULIN RATIO 0.5 (1.0-2.7); CALCIUM 9.8 mg/dL (8.6-10.2); CREATININE 6.7 mg/dL (0.7-1.2); GLOMERULAR FILTRATION RATE 8.2 mL/min (>60); PHOSPHORUS 6.2 mg/dL (2.5-4.8); POTASSIUM 4.7 mEQ/L (3.4-4.9); TOTAL PROTEIN 6.6 g/dL (6.6-8.7)
--- NOTE | 2016-10-07 07:34 | General Progress Note ---
Assessment/Plan Problem List: (1) HTN (hypertension) ICD Codes: I10 - Essential (primary) hypertension SNOMED: 05626193 (2) COPD (chronic obstructive pulmonary disease) ICD Codes: J44.9 - Chronic obstructive pulmonary disease, unspecified SNOMED: 36845199 (3) ESRD (end stage renal disease) ICD Codes: N18.6 - End stage renal disease SNOMED: 85760902 (4) Diabetes mellitus ICD Codes: E11.9 - Type 2 diabetes mellitus without complications SNOMED: 38009593 (5) Pancreatitis, acute ICD Codes: K85.90 - Acute pancreatitis without necrosis or infection, unspecified SNOMED: 772817061 Assessment/Plan Recommendations - PPI - BID - transfuse PRN - Reglan / bethanecol - continue TPN - continue to follow amylase and lipase - will resume TF once amylase and lipase closer to resolution - abx per ID Subjective ROS Limited/Unobtainable: Yes Allergies: Coded Allergies: NIACIN (Verified Allergy, Unknown, ITCHING, 01/30/12) Subjective no event Objective Last 24 Hour Vital Signs Date Time Temp Pulse Resp B/P Pulse Ox O2 Delivery O2 Flow Rate FiO2 10/07/16 04:50 96 31 35 10/07/16 04:00 113 10/07/16 04:00 35 10/07/16 04:00 98.3 94 30 130/51 100 Mechanical Ventilator 35 10/07/16 03:28 99 29 35 10/07/16 00:38 96 30 35 10/07/16 00:00 35 10/07/16 00:00 98.4 95 28 126/55 100 Mechanical Ventilator 10/07/16 00:00 94 10/06/16 22:49 93 18 35 10/06/16 21:30 100 31 35 10/06/16 20:08 95 10/06/16 20:00 35 10/06/16 20:00 99.1 95 20 134/61 100 Mechanical Ventilator 35 10/06/16 19:30 100 34 35 10/06/16 17:12 122/44 10/06/16 16:38 85 17 35 10/06/16 16:00 98.2 96 16 133/66 100 Mechanical Ventilator 28 10/06/16 16:00 95 10/06/16 16:00 35 10/06/16 14:50 94 27 35 10/06/16 13:20 97 29 35 10/06/16 12:00 35 10/06/16 12:00 98.1 91 14 128/44 100 Mechanical Ventilator 35 10/06/16 12:00 92 10/06/16 11:19 88 18 35 10/06/16 09:29 99 15 35 10/06/16 08:42 135/89 10/06/16 08:41 95 135/89 10/06/16 08:00 97.9 95 32 135/89 100 Mechanical Ventilator 30 10/06/16 08:00 93 10/06/16 08:00 35 Intake and Output 10/06/16 10/07/16 19:00 07:00 Intake Total 959 ml 901.11 ml Balance 959 ml 901.11 ml IV Total 859 ml 811.11 ml Other 100 ml 90 ml # Voids 2 3 # Bowel Movements 6 6 Laboratory Tests 10/07/16 04:10: White Blood Count 12.7H, Red Blood Count 2.46L, Hemoglobin 8.0L, Hematocrit 23.6L, Mean Corpuscular Volume 96, Mean Corpuscular Hemoglobin 32.6H, Mean Corpuscular Hemoglobin Concent 34.0, Red Cell Distribution Width 15.9H, Platelet Count 338, Mean Platelet Volume 5.3L, Neutrophils (%) (Auto) 64.5, Lymphocytes (%) (Auto) 12.2L, Monocytes (%) (Auto) 17.2H, Eosinophils (%) (Auto ) 3.0, Basophils (%) (Auto) 3.1H, Sodium Level 142, Potassium Level 4.7, Chloride Level 99, Carbon Dioxide Level 21, Anion Gap 22H, Blood Urea Nitrogen 80H, Creatinine 6.7H, Estimat Glomerular Filtration Rate 8.2, Glucose Level 100 , Calcium Level 9.8, Phosphorus Level 6.2H, Magnesium Level 1.9, Total Bilirubin 0.3, Aspartate Amino Transf (AST/SGOT) 22, Alanine Aminotransferase ( ALT/SGPT) 7, Alkaline Phosphatase 134H, Total Protein 6.6, Albumin 2.3L, Globulin 4.3, Albumin/Globulin Ratio 0.5L, Amylase Level 211H, Lipase 258H Height (Feet): 5 Height (Inches): 9.00 Weight (Pounds): 173 General Appearance: no apparent distress EENT: normal ENT inspection Neck: supple Cardiovascular: normal rate Respiratory/Chest: decreased breath sounds Abdomen: soft, hypoactive bowel sounds, tender Extremities: non-tender AYLIN MARSH Oct 07, 2016 07:34
[2016-10-07] MEDS: LORazepam Inj 2mg/ml 1ml IV PRN ×2 (07:54→23:32)
[2016-10-07 08:06] VITALS: BP 161/71
[2016-10-07] MEDS: Minoxidil 10mg tab GT SCH ×2 (08:19→18:05)
[2016-10-07] MEDS: Bethanechol 10mg Tab GT SCH ×3 (08:19→18:05)
[2016-10-07] MEDS: Valproic Acid 250mg/5ml Liquid GT SCH ×3 (08:20→23:33)
[2016-10-07] MEDS: Phenytoin Susp 100mg/4ml GT SCH ×2 (08:20→21:04)
[2016-10-07] MEDS: Heparin 5000 units/ml inj SUBQ SCH ×2 (08:22→21:02)
--- NOTE | 2016-10-07 09:48 | Infectious Diseases Prog Note ---
Assessment/Plan Assessment/Plan antibiotics : zosyn A 1. enterobacter pneumonia /p rx 2. respiratory failure 3. renal failure 4. leucocytosis improving 5. s/p cardiac arrest 6. acute pancreatitis resolving P 1. continue zosyn 2. will follow up cultures Subjective ROS Limited/Unobtainable: Yes Allergies: Coded Allergies: NIACIN (Verified Allergy, Unknown, ITCHING, 01/30/12) Objective Vital Signs Last 24 Hour Vital Signs Date Time Temp Pulse Resp B/P Pulse Ox O2 Delivery O2 Flow Rate FiO2 10/07/16 09:01 99 32 35 10/07/16 08:19 161/71 10/07/16 08:19 101 161/71 10/07/16 08:06 97.7 101 21 161/71 Mechanical Ventilator 10/07/16 08:00 98 10/07/16 07:05 97 33 35 10/07/16 04:50 96 31 35 10/07/16 04:00 113 10/07/16 04:00 35 10/07/16 04:00 98.3 94 30 130/51 100 Mechanical Ventilator 35 10/07/16 03:28 99 29 35 10/07/16 00:38 96 30 35 10/07/16 00:00 35 10/07/16 00:00 98.4 95 28 126/55 100 Mechanical Ventilator 10/07/16 00:00 94 10/06/16 22:49 93 18 35 10/06/16 21:30 100 31 35 10/06/16 20:08 95 10/06/16 20:00 35 10/06/16 20:00 99.1 95 20 134/61 100 Mechanical Ventilator 35 10/06/16 19:30 100 34 35 10/06/16 17:12 122/44 10/06/16 16:38 85 17 35 10/06/16 16:00 98.2 96 16 133/66 100 Mechanical Ventilator 28 10/06/16 16:00 95 10/06/16 16:00 35 10/06/16 14:50 94 27 35 10/06/16 13:20 97 29 35 10/06/16 12:00 35 10/06/16 12:00 98.1 91 14 128/44 100 Mechanical Ventilator 35 10/06/16 12:00 92 10/06/16 11:19 88 18 35 Height (Feet): 5 Height (Inches): 9.00 Weight (Pounds): 173 HEENT: status post trach Respiratory/Chest: lungs clear Cardiovascular: normal rate, regular rhythm, no gallop/murmur Abdomen: soft, non tender, other - GT Extremities: no edema, other - right subclavian Laboratory Tests Test 10/07/16 04:10 White Blood Count 12.7 K/UL (4.8-10.8) H Red Blood Count 2.46 M/UL (4.70-6.10) L Hemoglobin 8.0 G/DL (14.2-18.0) L Hematocrit 23.6 % (42.0-52.0) L Mean Corpuscular Volume 96 FL (80-99) Mean Corpuscular Hemoglobin 32.6 PG (27.0-31.0) H Mean Corpuscular Hemoglobin Concent 34.0 G/DL (32.0-36.0) Red Cell Distribution Width 15.9 % (11.6-14.8) H Platelet Count 338 K/UL (150-450) Mean Platelet Volume 5.3 FL (6.5-10.1) L Neutrophils (%) (Auto) 64.5 % (45.0-75.0) Lymphocytes (%) (Auto) 12.2 % (20.0-45.0) L Monocytes (%) (Auto) 17.2 % (1.0-10.0) H Eosinophils (%) (Auto) 3.0 % (0.0-3.0) Basophils (%) (Auto) 3.1 % (0.0-2.0) H Sodium Level 142 mEQ/L (135-145) Potassium Level 4.7 mEQ/L (3.4-4.9) Chloride Level 99 mEQ/L (98-107) Carbon Dioxide Level 21 mEQ/L (20-30) Anion Gap 22 (5-15) H Blood Urea Nitrogen 80 mg/dL (7-23) H Creatinine 6.7 mg/dL (0.7-1.2) H Estimat Glomerular Filtration Rate 8.2 mL/min (>60) Glucose Level 100 mg/dL (74-106) Calcium Level 9.8 mg/dL (8.6-10.2) Phosphorus Level 6.2 mg/dL (2.5-4.8) H Magnesium Level 1.9 mg/dL (1.7-2.5) Total Bilirubin 0.3 mg/dL (0.0-1.2) Aspartate Amino Transf (AST/SGOT) 22 U/L (5-40) Alanine Aminotransferase (ALT/SGPT) 7 U/L (3-41) Alkaline Phosphatase 134 U/L (40-129) H Total Protein 6.6 g/dL (6.6-8.7) Albumin 2.3 g/dL (3.5-5.2) L Globulin 4.3 g/dL Albumin/Globulin Ratio 0.5 (1.0-2.7) L Amylase Level 211 U/L (10-110) H Lipase 258 U/L (< 60) H LEWIS ADAMS Oct 07, 2016 09:48
[2016-10-07 11:53] VITALS: BP 147/69
--- NOTE | 2016-10-07 12:23 | Nephrology Progress Note ---
Assessment/Plan Problem List: (1) ESRD (end stage renal disease) (2) Anoxic encephalopathy syndrome (3) Respiratory failure with hypoxia (4) CHF (congestive heart failure) (5) HTN (hypertension) (6) Acute pancreatitis Assessment: better (7) Pneumonia Assessment: enterobacter (8) Anemia Assessment: better Plan HD today Cont TPN Vent support follow labs abxs cont Epogen Discussed with RN Subjective Subjective Restless Objective Objective Last 24 Hour Vital Signs Date Time Temp Pulse Resp B/P Pulse Ox O2 Delivery O2 Flow Rate FiO2 10/07/16 12:00 35 10/07/16 11:53 98.2 100 22 147/69 Mechanical Ventilator 10/07/16 10:48 102 30 35 10/07/16 09:01 99 32 35 10/07/16 08:19 161/71 10/07/16 08:19 101 161/71 10/07/16 08:06 97.7 101 21 161/71 Mechanical Ventilator 10/07/16 08:00 98 10/07/16 08:00 35 10/07/16 07:05 97 33 35 10/07/16 04:50 96 31 35 10/07/16 04:00 113 10/07/16 04:00 35 10/07/16 04:00 98.3 94 30 130/51 100 Mechanical Ventilator 35 10/07/16 03:28 99 29 35 10/07/16 00:38 96 30 35 10/07/16 00:00 35 10/07/16 00:00 98.4 95 28 126/55 100 Mechanical Ventilator 35 10/07/16 00:00 94 10/06/16 22:49 93 18 35 10/06/16 21:30 100 31 35 10/06/16 20:08 95 10/06/16 20:00 35 10/06/16 20:00 99.1 95 20 134/61 100 Mechanical Ventilator 35 10/06/16 19:30 100 34 35 10/06/16 17:12 122/44 10/06/16 16:38 85 17 35 10/06/16 16:00 98.2 96 16 133/66 100 Mechanical Ventilator 28 10/06/16 16:00 95 10/06/16 16:00 35 10/06/16 14:50 94 27 35 10/06/16 13:20 97 29 35 Intake and Output 10/06/16 10/07/16 19:00 07:00 Intake Total 959 ml 1078.11 ml Balance 959 ml 1078.11 ml IV Total 859 ml 988.11 ml Other 100 ml 90 ml # Voids 2 3 # Bowel Movements 6 6 Laboratory Tests 10/07/16 04:10: White Blood Count 12.7H, Red Blood Count 2.46L, Hemoglobin 8.0L, Hematocrit 23.6L, Mean Corpuscular Volume 96, Mean Corpuscular Hemoglobin 32.6H, Mean Corpuscular Hemoglobin Concent 34.0, Red Cell Distribution Width 15.9H, Platelet Count 338, Mean Platelet Volume 5.3L, Neutrophils (%) (Auto) 64.5, Lymphocytes (%) (Auto) 12.2L, Monocytes (%) (Auto) 17.2H, Eosinophils (%) (Auto ) 3.0, Basophils (%) (Auto) 3.1H, Sodium Level 142, Potassium Level 4.7, Chloride Level 99, Carbon Dioxide Level 21, Anion Gap 22H, Blood Urea Nitrogen 80H, Creatinine 6.7H, Estimat Glomerular Filtration Rate 8.2, Glucose Level 100 , Calcium Level 9.8, Phosphorus Level 6.2H, Magnesium Level 1.9, Total Bilirubin 0.3, Aspartate Amino Transf (AST/SGOT) 22, Alanine Aminotransferase ( ALT/SGPT) 7, Alkaline Phosphatase 134H, Total Protein 6.6, Albumin 2.3L, Globulin 4.3, Albumin/Globulin Ratio 0.5L, Amylase Level 211H, Lipase 258H Height (Feet): 5 Height (Inches): 9.00 Weight (Pounds): 173 Cardiovascular: normal rate Respiratory/Chest: rhonchi - bilaterally Extremities: other - no edema CANDICE BREAUX Oct 07, 2016 12:23
--- NOTE | 2016-10-07 13:21 | Internal Med Progress Note ---
Subjective Date of Service: Oct 07, 2016 Physician Name Filiberto Clancy Attending Physician Harrison Delatorre Current Medications Medications (Trade) Dose Ordered Sig/Mark Route PRN Reason Start Time Stop Time Status Last Admin Dose Admin Acetaminophen 650 mg 650 mg Q4H PRN GT Mild Pain/Temp > 100.5 10/05/16 02:45 11/04/16 02:44 Amlodipine Besylate (Norvasc) 10 mg DAILY GT 09/27/16 09:00 10/27/16 08:59 10/07/16 08:19 Bethanechol Chloride (Urecholine) 10 mg THREE TIMES A DAY GT 10/05/16 09:00 11/04/16 08:59 10/07/16 12:14 Chlorhexidine Gluconate (Lakshmi-Hex 2%) 1 applic Q24H TOPIC 09/26/16 21:00 10/26/16 20:59 10/06/16 20:10 Dextrose (D10w) 1,000 ml @ 0 mls/hr Q24H PRN IV PN interrupted or unavailable 09/28/16 21:00 10/28/16 20:59 Dextrose (Dextrose 50%) STAT PRN IV Hypoglycemia 09/28/16 12:00 10/28/16 11:59 10/04/16 11:49 Epoetin Kiko (Procrit (for ESRD on dialysis)) 10,000 units THU-THU-THU SUBQ 09/29/16 21:00 10/29/16 20:59 10/06/16 20:15 Fat Emulsion Intravenous/Amino Acids/ Electrolytes/ Dextrose (Intralipids/Tpn) 1,608 ml @ 67 mls/hr Q24H IV 10/05/16 21:00 11/04/16 20:59 10/06/16 20:19 Heparin Sodium (Porcine) (Heparin 5000 units/ml) 5,000 units EVERY 12 HOURS SUBQ 09/26/16 21:00 10/26/16 20:59 10/07/16 08:22 Heparin Sodium (Porcine) 2000 unit 2,000 unit ONCE IV 10/07/16 06:00 10/07/16 23:59 Insulin Aspart (NovoLOG) EVERY 6 HOURS SUBQ 09/26/16 12:00 10/26/16 11:59 10/06/16 23:39 Lansoprazole (Prevacid) 30 mg DAILY GT 09/27/16 09:00 10/27/16 08:59 10/07/16 08:19 Lorazepam 1 mg 1 mg Q2HR PRN IV For Anxiety 10/05/16 20:00 10/12/16 19:59 10/07/16 07:54 Metoclopramide HCl (Reglan) 5 mg Q6HR GT 10/05/16 06:00 11/04/16 05:59 10/07/16 12:13 Minoxidil (Loniten) 15 mg BID GT 09/26/16 18:00 10/26/16 17:59 10/07/16 08:19 Phenytoin (Dilantin) 300 mg Q12HR GT 09/26/16 21:00 10/26/16 20:59 10/07/16 08:20 Phenytoin/Sodium Chloride (Dilantin/Sodium Chloride) 120 ml @ 120 mls/hr POSTHD IVPB 09/26/16 21:00 10/26/16 20:59 10/04/16 15:47 Phytonadione (Vitamin K) 10 mg QWEEK SUBQ 09/28/16 21:00 10/28/16 20:59 10/05/16 20:46 Piperacillin Sod/ Tazobactam Sod/ Dextrose (Zosyn/D5W) 55 ml @ 110 mls/hr Q8HR IVPB 10/06/16 14:00 10/14/16 13:59 10/07/16 05:56 Polyethylene Glycol (Miralax) 17 gm DAILYPRN PRN GT Constipation 10/05/16 02:45 11/04/16 02:44 Sodium Chloride (Sodium Chloride 1000ml bag) 1,000 ml @ 500 mls/hr Q2H PRN IVLG sbp<90 during hd 10/07/16 06:00 10/07/16 23:59 Valproic Acid (Depakene) 1,000 mg POSTHD GT 09/26/16 11:00 10/26/16 10:59 10/04/16 13:35 Valproic Acid 1500 mg 1,500 mg Q12HR GT 09/26/16 21:00 10/26/16 20:59 10/07/16 08:20 Allergies: Coded Allergies: NIACIN (Verified Allergy, Unknown, ITCHING, 01/30/12) ROS Limited/Unobtainable: Yes Subjective 71 YO M admitted with volume overload and respiratory failure. S/P cardiopulmonary arrest. WILD. Intubated. Pancreatitis resolving. Cover for Int Brad-Dr [facility]. Objective Last Vital Signs Date Time Temp Pulse Resp B/P Pulse Ox O2 Delivery O2 Flow Rate FiO2 10/07/16 12:41 92 30 35 10/07/16 11:53 98.2 147/69 Mechanical Ventilator 10/07/16 04:00 100 10/04/16 10:30 100.0 Laboratory Tests Test 10/07/16 04:10 White Blood Count 12.7 K/UL (4.8-10.8) H Red Blood Count 2.46 M/UL (4.70-6.10) L Hemoglobin 8.0 G/DL (14.2-18.0) L Hematocrit 23.6 % (42.0-52.0) L Mean Corpuscular Volume 96 FL (80-99) Mean Corpuscular Hemoglobin 32.6 PG (27.0-31.0) H Mean Corpuscular Hemoglobin Concent 34.0 G/DL (32.0-36.0) Red Cell Distribution Width 15.9 % (11.6-14.8) H Platelet Count 338 K/UL (150-450) Mean Platelet Volume 5.3 FL (6.5-10.1) L Neutrophils (%) (Auto) 64.5 % (45.0-75.0) Lymphocytes (%) (Auto) 12.2 % (20.0-45.0) L Monocytes (%) (Auto) 17.2 % (1.0-10.0) H Eosinophils (%) (Auto) 3.0 % (0.0-3.0) Basophils (%) (Auto) 3.1 % (0.0-2.0) H Sodium Level 142 mEQ/L (135-145) Potassium Level 4.7 mEQ/L (3.4-4.9) Chloride Level 99 mEQ/L (98-107) Carbon Dioxide Level 21 mEQ/L (20-30) Anion Gap 22 (5-15) H Blood Urea Nitrogen 80 mg/dL (7-23) H Creatinine 6.7 mg/dL (0.7-1.2) H Estimat Glomerular Filtration Rate 8.2 mL/min (>60) Glucose Level 100 mg/dL (74-106) Calcium Level 9.8 mg/dL (8.6-10.2) Phosphorus Level 6.2 mg/dL (2.5-4.8) H Magnesium Level 1.9 mg/dL (1.7-2.5) Total Bilirubin 0.3 mg/dL (0.0-1.2) Aspartate Amino Transf (AST/SGOT) 22 U/L (5-40) Alanine Aminotransferase (ALT/SGPT) 7 U/L (3-41) Alkaline Phosphatase 134 U/L (40-129) H Total Protein 6.6 g/dL (6.6-8.7) Albumin 2.3 g/dL (3.5-5.2) L Globulin 4.3 g/dL Albumin/Globulin Ratio 0.5 (1.0-2.7) L Amylase Level 211 U/L (10-110) H Lipase 258 U/L (< 60) H Intake and Output 10/06/16 10/07/16 19:00 07:00 Intake Total 959 ml 1078.11 ml Balance 959 ml 1078.11 ml IV Total 859 ml 988.11 ml Other 100 ml 90 ml # Voids 2 3 # Bowel Movements 6 6 Objective General Appearance: WD/WN, lethargic EENT: PERRL/EOMI, normal ENT inspection, TMs normal Neck: non-tender, normal alignment, supple Cardiovascular: normal peripheral pulses, normal rate, regular rhythm, no gallop/murmur, no JVD Respiratory/Chest: Trach; Mech vent; chest wall non-tender, crackles/rales, rhonchi - bilaterally, expiratory wheezing Abdomen: normal bowel sounds, non tender, soft, no organomegaly Skin: normal pigmentation, warm/dry Assessment/Plan Problem List: (1) HTN (hypertension) Assessment & Plan: Cont amlodipine. (2) Hyperkalemia (3) Respiratory failure with hypoxia Assessment & Plan: Intubated and sedated. S/P Tracheostomy 09/24/16. (4) ESRD (end stage renal disease) Assessment & Plan: See nephrology note. next Hemodialysis 10/07/16 per nephrology (5) CHF (congestive heart failure) (6) Diabetes mellitus Assessment & Plan: Cont novolog sliding scale. 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 Continue depakote and dilantin (9) Anoxic encephalopathy syndrome Assessment & Plan: See neruo note. (10) Enterobacter sepsis (11) Pneumonia Assessment & Plan: Enterobacter. Cont zosyn per ID (12) Anemia (13) Dysphagia Assessment & Plan: S/P PEG 09/23/16. (14) Cholecystitis, acute Assessment & Plan: See Surgery note. Not surgical candidate at this time. Continue zosyn per ID (15) Pancreatitis, acute Assessment & Plan: Improving amylase and lipase. See GI note. Hold tube feeds ; continue TPN. (16) Fever Assessment & Plan: See ID note. Assessment/Plan See case management note for discharge planning. FILIBERTO CLANCY Oct 07, 2016 13:21
--- NOTE | 2016-10-07 14:02 | Cardiology Progress Note ---
Assessment/Plan Assessment/Plan cardiopulm arrest anoxic encephalopathy esrd on hd noncompliant with dialysis htn chronic diastolic failure hx cad status epilepticus fever UGIB possible DM gastroparesis Acute pancreatitis, presumed due to gallstone pancreatic enzyme on down trend dialysis bp seems ok now Subjective ROS Limited/Unobtainable: Yes Subjective on vent not comminicative not responsive moves around sitter at bedside to help prevent self inflicted problems Objective Last 24 Hour Vital Signs Date Time Temp Pulse Resp B/P Pulse Ox O2 Delivery O2 Flow Rate FiO2 10/07/16 12:41 92 30 35 10/07/16 12:00 35 10/07/16 12:00 97 10/07/16 11:53 98.2 100 22 147/69 Mechanical Ventilator 10/07/16 10:48 102 30 35 10/07/16 09:01 99 32 35 10/07/16 08:19 161/71 10/07/16 08:19 101 161/71 10/07/16 08:06 97.7 101 21 161/71 Mechanical Ventilator 10/07/16 08:00 98 10/07/16 08:00 35 10/07/16 07:05 97 33 35 10/07/16 04:50 96 31 35 10/07/16 04:00 113 10/07/16 04:00 35 10/07/16 04:00 98.3 94 30 130/51 100 Mechanical Ventilator 35 10/07/16 03:28 99 29 35 10/07/16 00:38 96 30 35 10/07/16 00:00 35 10/07/16 00:00 98.4 95 28 126/55 100 Mechanical Ventilator 35 10/07/16 00:00 94 10/06/16 22:49 93 18 35 10/06/16 21:30 100 31 35 10/06/16 20:08 95 10/06/16 20:00 35 10/06/16 20:00 99.1 95 20 134/61 100 Mechanical Ventilator 35 10/06/16 19:30 100 34 35 10/06/16 17:12 122/44 10/06/16 16:38 85 17 35 10/06/16 16:00 98.2 96 16 133/66 100 Mechanical Ventilator 28 10/06/16 16:00 95 10/06/16 16:00 35 10/06/16 14:50 94 27 35 General Appearance: no apparent distress, alert, agitated Intake and Output 10/06/16 10/07/16 19:00 07:00 Intake Total 959 ml 1078.11 ml Balance 959 ml 1078.11 ml IV Total 859 ml 988.11 ml Other 100 ml 90 ml # Voids 2 3 # Bowel Movements 6 6 Laboratory Tests Test 10/07/16 04:10 White Blood Count 12.7 K/UL (4.8-10.8) H Red Blood Count 2.46 M/UL (4.70-6.10) L Hemoglobin 8.0 G/DL (14.2-18.0) L Hematocrit 23.6 % (42.0-52.0) L Mean Corpuscular Volume 96 FL (80-99) Mean Corpuscular Hemoglobin 32.6 PG (27.0-31.0) H Mean Corpuscular Hemoglobin Concent 34.0 G/DL (32.0-36.0) Red Cell Distribution Width 15.9 % (11.6-14.8) H Platelet Count 338 K/UL (150-450) Mean Platelet Volume 5.3 FL (6.5-10.1) L Neutrophils (%) (Auto) 64.5 % (45.0-75.0) Lymphocytes (%) (Auto) 12.2 % (20.0-45.0) L Monocytes (%) (Auto) 17.2 % (1.0-10.0) H Eosinophils (%) (Auto) 3.0 % (0.0-3.0) Basophils (%) (Auto) 3.1 % (0.0-2.0) H Sodium Level 142 mEQ/L (135-145) Potassium Level 4.7 mEQ/L (3.4-4.9) Chloride Level 99 mEQ/L (98-107) Carbon Dioxide Level 21 mEQ/L (20-30) Anion Gap 22 (5-15) H Blood Urea Nitrogen 80 mg/dL (7-23) H Creatinine 6.7 mg/dL (0.7-1.2) H Estimat Glomerular Filtration Rate 8.2 mL/min (>60) Glucose Level 100 mg/dL (74-106) Calcium Level 9.8 mg/dL (8.6-10.2) Phosphorus Level 6.2 mg/dL (2.5-4.8) H Magnesium Level 1.9 mg/dL (1.7-2.5) Total Bilirubin 0.3 mg/dL (0.0-1.2) Aspartate Amino Transf (AST/SGOT) 22 U/L (5-40) Alanine Aminotransferase (ALT/SGPT) 7 U/L (3-41) Alkaline Phosphatase 134 U/L (40-129) H Total Protein 6.6 g/dL (6.6-8.7) Albumin 2.3 g/dL (3.5-5.2) L Globulin 4.3 g/dL Albumin/Globulin Ratio 0.5 (1.0-2.7) L Amylase Level 211 U/L (10-110) H Lipase 258 U/L (< 60) H HUSSEIN CAGE Oct 07, 2016 14:02
--- NOTE | 2016-10-07 14:12 | Pulmonology Progress Note ---
Assessment/Plan Assessment/Plan 1. Status post cardiac arrest. 2. Renal failure with hyperkalemia. 3. Respiratory failure. 4. Anoxic encephalopathy. 5. Status epilepticus 6. Coronary artery disease. 7. History of cardiomyopathy. 8. Diabetes. 9. Hypertension. 10 Pancreatitis weaning trial with high RR, good TV trach and vent dependent cont TPN until pancreatitis resolves disc w RN Subjective ROS Limited/Unobtainable: Yes Allergies: Coded Allergies: NIACIN (Verified Allergy, Unknown, ITCHING, 01/30/12) Subjective agitated Objective Last 24 Hour Vital Signs Date Time Temp Pulse Resp B/P Pulse Ox O2 Delivery O2 Flow Rate FiO2 10/07/16 12:41 92 30 35 10/07/16 12:00 35 10/07/16 12:00 97 10/07/16 11:53 98.2 100 22 147/69 Mechanical Ventilator 10/07/16 10:48 102 30 35 10/07/16 09:01 99 32 35 10/07/16 08:19 161/71 10/07/16 08:19 101 161/71 10/07/16 08:06 97.7 101 21 161/71 Mechanical Ventilator 10/07/16 08:00 98 10/07/16 08:00 35 10/07/16 07:05 97 33 35 10/07/16 04:50 96 31 35 10/07/16 04:00 113 10/07/16 04:00 35 10/07/16 04:00 98.3 94 30 130/51 100 Mechanical Ventilator 35 10/07/16 03:28 99 29 35 10/07/16 00:38 96 30 35 10/07/16 00:00 35 10/07/16 00:00 98.4 95 28 126/55 100 Mechanical Ventilator 35 10/07/16 00:00 94 10/06/16 22:49 93 18 35 10/06/16 21:30 100 31 35 10/06/16 20:08 95 10/06/16 20:00 35 10/06/16 20:00 99.1 95 20 134/61 100 Mechanical Ventilator 35 10/06/16 19:30 100 34 35 10/06/16 17:12 122/44 10/06/16 16:38 85 17 35 10/06/16 16:00 98.2 96 16 133/66 100 Mechanical Ventilator 28 10/06/16 16:00 95 10/06/16 16:00 35 10/06/16 14:50 94 27 35 Intake and Output 10/06/16 10/07/16 18:59 06:59 Intake Total 959 ml 968.11 ml Balance 959 ml 968.11 ml IV Total 859 ml 878.11 ml Other 100 ml 90 ml # Voids 2 3 # Bowel Movements 6 6 Objective poorly responsive General Appearance: other - agitated Respiratory/Chest: lungs clear Cardiovascular: normal rate Laboratory Tests 10/07/16 04:10: White Blood Count 12.7H, Red Blood Count 2.46L, Hemoglobin 8.0L, Hematocrit 23.6L, Mean Corpuscular Volume 96, Mean Corpuscular Hemoglobin 32.6H, Mean Corpuscular Hemoglobin Concent 34.0, Red Cell Distribution Width 15.9H, Platelet Count 338, Mean Platelet Volume 5.3L, Neutrophils (%) (Auto) 64.5, Lymphocytes (%) (Auto) 12.2L, Monocytes (%) (Auto) 17.2H, Eosinophils (%) (Auto ) 3.0, Basophils (%) (Auto) 3.1H, Sodium Level 142, Potassium Level 4.7, Chloride Level 99, Carbon Dioxide Level 21, Anion Gap 22H, Blood Urea Nitrogen 80H, Creatinine 6.7H, Estimat Glomerular Filtration Rate 8.2, Glucose Level 100 , Calcium Level 9.8, Phosphorus Level 6.2H, Magnesium Level 1.9, Total Bilirubin 0.3, Aspartate Amino Transf (AST/SGOT) 22, Alanine Aminotransferase ( ALT/SGPT) 7, Alkaline Phosphatase 134H, Total Protein 6.6, Albumin 2.3L, Globulin 4.3, Albumin/Globulin Ratio 0.5L, Amylase Level 211H, Lipase 258H Current Medications Medications (Trade) Dose Ordered Sig/Mark Route PRN Reason Start Time Stop Time Status Last Admin Dose Admin Acetaminophen 650 mg 650 mg Q4H PRN GT Mild Pain/Temp > 100.5 10/05/16 02:45 11/04/16 02:44 Amlodipine Besylate (Norvasc) 10 mg DAILY GT 09/27/16 09:00 10/27/16 08:59 10/07/16 08:19 Bethanechol Chloride (Urecholine) 10 mg THREE TIMES A DAY GT 10/05/16 09:00 8/1/17 08:59 10/07/16 12:14 Chlorhexidine Gluconate (Lakshmi-Hex 2%) 1 applic Q24H TOPIC 09/26/16 21:00 10/26/16 20:59 10/06/16 20:10 Dextrose (D10w) 1,000 ml @ 0 mls/hr Q24H PRN IV PN interrupted or unavailable 09/28/16 21:00 10/28/16 20:59 Dextrose (Dextrose 50%) STAT PRN IV Hypoglycemia 09/28/16 12:00 10/28/16 11:59 10/04/16 11:49 Epoetin Kiko (Procrit (for ESRD on dialysis)) 10,000 units THU-THU-THU SUBQ 09/29/16 21:00 10/29/16 20:59 10/06/16 20:15 Fat Emulsion Intravenous/Amino Acids/ Electrolytes/ Dextrose (Intralipids/Tpn) 1,608 ml @ 67 mls/hr Q24H IV 10/05/16 21:00 11/04/16 20:59 10/06/16 20:19 Heparin Sodium (Porcine) (Heparin 5000 units/ml) 5,000 units EVERY 12 HOURS SUBQ 09/26/16 21:00 10/26/16 20:59 10/07/16 08:22 Heparin Sodium (Porcine) 2000 unit 2,000 unit ONCE IV 10/07/16 06:00 10/07/16 23:59 Insulin Aspart (NovoLOG) EVERY 6 HOURS SUBQ 09/26/16 12:00 10/26/16 11:59 10/06/16 23:39 Lansoprazole (Prevacid) 30 mg DAILY GT 09/27/16 09:00 10/27/16 08:59 10/07/16 08:19 Lorazepam 1 mg 1 mg Q2HR PRN IV For Anxiety 10/05/16 20:00 10/12/16 19:59 10/07/16 07:54 Metoclopramide HCl (Reglan) 5 mg Q6HR GT 10/05/16 06:00 11/04/16 05:59 10/07/16 12:13 Minoxidil (Loniten) 15 mg BID GT 09/26/16 18:00 10/26/16 17:59 10/07/16 08:19 Phenytoin (Dilantin) 300 mg Q12HR GT 09/26/16 21:00 10/26/16 20:59 10/07/16 08:20 Phenytoin/Sodium Chloride (Dilantin/Sodium Chloride) 120 ml @ 120 mls/hr POSTHD IVPB 09/26/16 21:00 10/26/16 20:59 10/04/16 15:47 Phytonadione (Vitamin K) 10 mg QWEEK SUBQ 09/28/16 21:00 10/28/16 20:59 10/05/16 20:46 Piperacillin Sod/ Tazobactam Sod/ Dextrose (Zosyn/D5W) 55 ml @ 110 mls/hr Q8HR IVPB 10/06/16 14:00 10/14/16 13:59 10/07/16 05:56 Polyethylene Glycol (Miralax) 17 gm DAILYPRN PRN GT Constipation 10/05/16 02:45 11/04/16 02:44 Sodium Chloride (Sodium Chloride 1000ml bag) 1,000 ml @ 500 mls/hr Q2H PRN IVLG sbp<90 during hd 10/07/16 06:00 10/07/16 23:59 Valproic Acid (Depakene) 1,000 mg POSTHD GT 09/26/16 11:00 10/26/16 10:59 10/04/16 13:35 Valproic Acid 1500 mg 1,500 mg Q12HR GT 09/26/16 21:00 10/26/16 20:59 10/07/16 08:20 CHLOE ESQUIVEL Oct 07, 2016 14:12
[2016-10-07 15:52] VITALS: BP 116/41
[2016-10-07 20:00] VITALS: BP 135/44
[2016-10-07] MEDS: TPN IV SCH (21:01)
[2016-10-07] MEDS: FAT EMULSION 20% IV SCH (21:01)
[2016-10-07] MEDS: Dyna-Hex 2% Top Sol 8oz TOPIC SCH (21:04)
[2016-10-07] MEDS ORDERED: Phenytoin 250mg/5ml vial ONE (22:41)
[2016-10-07] MEDS: Phenytoin 500 MG in NS 110 ML IVPB SCH (23:33)
[2016-10-08] VITALS (7 sets, daily range): BP systolic 92–135; BP diastolic 48–76
[2016-10-08 05:30] LABS: BASOPHILS % (AUTO) 3.4 % (0.0-2.0); EOSINOPHILS % (AUTO) 2.4 % (0.0-3.0); LYMPHOCYTES % (AUTO) 15.6 % (20.0-45.0); MEAN CORPUSCULAR HEMOGLOBIN 32.2 PG (27.0-31.0); MEAN CORPUSCULAR HGB CONC 33.5 G/DL (32.0-36.0); MEAN CORPUSCULAR VOLUME 96 FL (80-99); MEAN PLATELET VOLUME 5.4 FL (6.5-10.1); MONOCYTES % (AUTO) 13.6 % (1.0-10.0); PLATELET COUNT 322 K/UL (150-450); RED BLOOD COUNT 2.56 M/UL (4.70-6.10); RED CELL DISTRIBUTION WIDTH 16.3 % (11.6-14.8); WHITE BLOOD COUNT 13.3 K/UL (4.8-10.8)
[2016-10-08] MEDS: Metoclopramide 10mg/10ml Liq GT SCH ×3 (05:46→18:22)
[2016-10-08] MEDS: NovoLOG Insulin Flexpen SUBQ SCH ×3 (05:48→18:00)
[2016-10-08] MEDS: Piperacillin/Tazobactam 2.25 GM in D5W 55 ML IVPB SCH ×3 (05:48→21:53)
[2016-10-08 06:01] LABS: AMYLASE 189 U/L (10-110); LIPASE 219 U/L (< 60)
[2016-10-08 09:00] LABS: ALBUMIN/GLOBULIN RATIO 0.5 (1.0-2.7); CALCIUM 9.7 mg/dL (8.6-10.2); CREATININE 4.4 mg/dL (0.7-1.2); GLOMERULAR FILTRATION RATE 13.4 mL/min (>60); PHOSPHORUS 4.3 mg/dL (2.5-4.8); POTASSIUM 4.2 mEQ/L (3.4-4.9); TOTAL PROTEIN 6.7 g/dL (6.6-8.7)
[2016-10-08] MEDS: Phenytoin Susp 100mg/4ml GT SCH ×2 (09:00→21:00)
[2016-10-08] MEDS: Bethanechol 10mg Tab GT SCH ×3 (09:00→18:22)
[2016-10-08] MEDS: Valproic Acid 250mg/5ml Liquid GT SCH ×2 (09:00→20:59)
[2016-10-08] MEDS: Minoxidil 10mg tab GT SCH ×2 (09:01→17:20)
[2016-10-08] MEDS: Heparin 5000 units/ml inj SUBQ SCH ×2 (09:05→21:00)
--- NOTE | 2016-10-08 09:16 | Pulmonology Progress Note ---
Assessment/Plan Assessment/Plan 1. Status post cardiac arrest. 2. Renal failure with hyperkalemia. 3. Respiratory failure. 4. Anoxic encephalopathy. 5. Status epilepticus 6. Coronary artery disease. 7. History of cardiomyopathy. 8. Diabetes. 9. Hypertension. 10 Pancreatitis weaning not possible trach and vent dependent amylase better cont TPN until pancreatitis resolves disc w RN Subjective ROS Limited/Unobtainable: Yes Allergies: Coded Allergies: NIACIN (Verified Allergy, Unknown, ITCHING, 01/30/12) Subjective agitated Objective Last 24 Hour Vital Signs Date Time Temp Pulse Resp B/P Pulse Ox O2 Delivery O2 Flow Rate FiO2 10/08/16 09:01 112/43 10/08/16 09:00 96 112/43 10/08/16 06:33 81 35 35 10/08/16 04:51 95 26 35 10/08/16 04:00 99.8 97 25 135/76 100 Mechanical Ventilator 10/08/16 04:00 92 10/08/16 04:00 35 10/08/16 03:20 90 14 35 10/08/16 01:18 95 23 35 10/08/16 00:08 99.5 99 22 92/49 100 Mechanical Ventilator 35 10/08/16 00:00 98 10/08/16 00:00 35 10/07/16 23:10 103 33 35 10/07/16 21:14 101 26 35 10/07/16 20:00 99.6 108 32 135/44 100 Mechanical Ventilator 35 10/07/16 20:00 35 10/07/16 20:00 95 10/07/16 19:33 103 33 35 10/07/16 18:05 116/41 10/07/16 18:00 Mechanical Ventilator 100.0 35 10/07/16 16:40 113 33 35 10/07/16 16:00 111 10/07/16 16:00 35 10/07/16 15:52 98.5 111 22 116/41 Mechanical Ventilator 10/07/16 14:58 100 31 35 10/07/16 13:40 Mechanical Ventilator 100.0 35 10/07/16 12:41 92 30 35 10/07/16 12:00 35 10/07/16 12:00 97 10/07/16 11:53 98.2 100 22 147/69 Mechanical Ventilator 10/07/16 10:48 102 30 35 Intake and Output 10/07/16 10/08/16 19:00 07:00 Intake Total 930 ml 900 ml Output Total 3100 ml Balance -2170 ml 900 ml IV Total 780 ml 900 ml Other 150 ml Hemodialysis UF 3100 ml # Voids 2 # Bowel Movements 3 4 Objective poorly responsive Respiratory/Chest: lungs clear Cardiovascular: normal rate Abdomen: soft, non tender Laboratory Tests 10/08/16 04:00: Sodium Level 142, Potassium Level 4.2, Chloride Level 97L, Carbon Dioxide Level 28, Anion Gap 17H, Blood Urea Nitrogen 47#H, Creatinine 4.4H, Estimat Glomerular Filtration Rate 13.4, Glucose Level 119H, Calcium Level 9.7, Phosphorus Level 4.3, Magnesium Level 2.0, Total Bilirubin 0.2, Aspartate Amino Transf (AST/SGOT) 27, Alanine Aminotransferase (ALT/SGPT) 8, Alkaline Phosphatase 147H, Total Protein 6.7, Albumin 2.4L, Globulin 4.3, Albumin/ Globulin Ratio 0.5L 10/08/16 04:20: White Blood Count 13.3H, Red Blood Count 2.56L, Hemoglobin 8.2L, Hematocrit 24.6L, Mean Corpuscular Volume 96, Mean Corpuscular Hemoglobin 32.2H, Mean Corpuscular Hemoglobin Concent 33.5, Red Cell Distribution Width 16.3H, Platelet Count 322, Mean Platelet Volume 5.4L, Neutrophils (%) (Auto) 65.0, Lymphocytes (%) (Auto) 15.6L, Monocytes (%) (Auto) 13.6H, Eosinophils (%) (Auto ) 2.4, Basophils (%) (Auto) 3.4H, Amylase Level 189H, Lipase 219H Current Medications Medications (Trade) Dose Ordered Sig/Mark Route PRN Reason Start Time Stop Time Status Last Admin Dose Admin Acetaminophen 650 mg 650 mg Q4H PRN GT Mild Pain/Temp > 100.5 10/05/16 02:45 11/04/16 02:44 Amlodipine Besylate (Norvasc) 10 mg DAILY GT 09/27/16 09:00 10/27/16 08:59 10/08/16 09:00 Bethanechol Chloride (Urecholine) 10 mg THREE TIMES A DAY GT 10/05/16 09:00 11/04/16 08:59 10/08/16 09:00 Chlorhexidine Gluconate (Lakshmi-Hex 2%) 1 applic Q24H TOPIC 09/26/16 21:00 10/26/16 20:59 10/07/16 21:04 Dextrose (D10w) 1,000 ml @ 0 mls/hr Q24H PRN IV PN interrupted or unavailable 09/28/16 21:00 10/28/16 20:59 Dextrose (Dextrose 50%) STAT PRN IV Hypoglycemia 09/28/16 12:00 10/28/16 11:59 10/04/16 11:49 Epoetin Kiko (Procrit (for ESRD on dialysis)) 10,000 units THU-THU-THU SUBQ 09/29/16 21:00 10/29/16 20:59 10/06/16 20:15 Fat Emulsion Intravenous/Amino Acids/ Electrolytes/ Dextrose (Intralipids/Tpn) 1,608 ml @ 67 mls/hr Q24H IV 10/05/16 21:00 11/04/16 20:59 10/07/16 21:01 Heparin Sodium (Porcine) (Heparin 5000 units/ml) 5,000 units EVERY 12 HOURS SUBQ 09/26/16 21:00 10/26/16 20:59 10/08/16 09:05 Insulin Aspart (NovoLOG) EVERY 6 HOURS SUBQ 09/26/16 12:00 10/26/16 11:59 10/08/16 05:48 Lansoprazole (Prevacid) 30 mg DAILY GT 09/27/16 09:00 10/27/16 08:59 10/08/16 09:00 Lorazepam 1 mg 1 mg Q2HR PRN IV For Anxiety 10/05/16 20:00 10/12/16 19:59 10/07/16 23:32 Metoclopramide HCl (Reglan) 5 mg Q6HR GT 10/05/16 06:00 11/04/16 05:59 10/08/16 05:46 Minoxidil (Loniten) 15 mg BID GT 09/26/16 18:00 10/26/16 17:59 10/08/16 09:01 Phenytoin (Dilantin) 300 mg Q12HR GT 09/26/16 21:00 10/26/16 20:59 10/08/16 09:00 Phenytoin/Sodium Chloride (Dilantin/Sodium Chloride) 120 ml @ 120 mls/hr POSTHD IVPB 09/26/16 21:00 10/26/16 20:59 10/07/16 23:33 Phytonadione (Vitamin K) 10 mg QWEEK SUBQ 09/28/16 21:00 10/28/16 20:59 10/05/16 20:46 Piperacillin Sod/ Tazobactam Sod/ Dextrose (Zosyn/D5W) 55 ml @ 110 mls/hr Q8HR IVPB 10/06/16 14:00 10/14/16 13:59 10/08/16 05:48 Polyethylene Glycol (Miralax) 17 gm DAILYPRN PRN GT Constipation 10/05/16 02:45 11/04/16 02:44 Valproic Acid (Depakene) 1,000 mg POSTHD GT 09/26/16 11:00 10/26/16 10:59 10/07/16 23:33 Valproic Acid 1500 mg 1,500 mg Q12HR GT 09/26/16 21:00 10/26/16 20:59 10/08/16 09:00 CHLOE ESQUIVEL Oct 08, 2016 09:16
--- NOTE | 2016-10-08 11:42 | Internal Med Progress Note ---
Subjective Date of Service: Oct 08, 2016 Physician Name Filiberto Clancy Attending Physician Harrison Delatorre Current Medications Medications (Trade) Dose Ordered Sig/Mark Route PRN Reason Start Time Stop Time Status Last Admin Dose Admin Acetaminophen 650 mg 650 mg Q4H PRN GT Mild Pain/Temp > 100.5 10/05/16 02:45 11/04/16 02:44 Amlodipine Besylate (Norvasc) 10 mg DAILY GT 09/27/16 09:00 10/27/16 08:59 10/08/16 09:00 Bethanechol Chloride (Urecholine) 10 mg THREE TIMES A DAY GT 10/05/16 09:00 11/04/16 08:59 10/08/16 09:00 Chlorhexidine Gluconate (Lakshmi-Hex 2%) 1 applic Q24H TOPIC 09/26/16 21:00 10/26/16 20:59 10/07/16 21:04 Dextrose (D10w) 1,000 ml @ 0 mls/hr Q24H PRN IV PN interrupted or unavailable 09/28/16 21:00 10/28/16 20:59 Dextrose (Dextrose 50%) STAT PRN IV Hypoglycemia 09/28/16 12:00 10/28/16 11:59 10/04/16 11:49 Epoetin Kiko (Procrit (for ESRD on dialysis)) 10,000 units THU-THU-THU SUBQ 09/29/16 21:00 10/29/16 20:59 10/06/16 20:15 Fat Emulsion Intravenous/Amino Acids/ Electrolytes/ Dextrose (Intralipids/Tpn) 1,608 ml @ 67 mls/hr Q24H IV 10/05/16 21:00 11/04/16 20:59 10/07/16 21:01 Heparin Sodium (Porcine) (Heparin 5000 units/ml) 5,000 units EVERY 12 HOURS SUBQ 09/26/16 21:00 10/26/16 20:59 10/08/16 09:05 Insulin Aspart (NovoLOG) EVERY 6 HOURS SUBQ 09/26/16 12:00 10/26/16 11:59 10/08/16 05:48 Lansoprazole (Prevacid) 30 mg DAILY GT 09/27/16 09:00 10/27/16 08:59 10/08/16 09:00 Lorazepam 1 mg 1 mg Q2HR PRN IV For Anxiety 10/05/16 20:00 10/12/16 19:59 10/07/16 23:32 Metoclopramide HCl (Reglan) 5 mg Q6HR GT 10/05/16 06:00 11/04/16 05:59 10/08/16 05:46 Minoxidil (Loniten) 15 mg BID GT 09/26/16 18:00 10/26/16 17:59 10/08/16 09:01 Phenytoin (Dilantin) 300 mg Q12HR GT 09/26/16 21:00 10/26/16 20:59 10/08/16 09:00 Phenytoin/Sodium Chloride (Dilantin/Sodium Chloride) 120 ml @ 120 mls/hr POSTHD IVPB 09/26/16 21:00 10/26/16 20:59 10/07/16 23:33 Phytonadione (Vitamin K) 10 mg QWEEK SUBQ 09/28/16 21:00 10/28/16 20:59 10/05/16 20:46 Piperacillin Sod/ Tazobactam Sod/ Dextrose (Zosyn/D5W) 55 ml @ 110 mls/hr Q8HR IVPB 10/06/16 14:00 10/14/16 13:59 10/08/16 05:48 Polyethylene Glycol (Miralax) 17 gm DAILYPRN PRN GT Constipation 10/05/16 02:45 11/04/16 02:44 Valproic Acid (Depakene) 1,000 mg POSTHD GT 09/26/16 11:00 10/26/16 10:59 10/07/16 23:33 Valproic Acid 1500 mg 1,500 mg Q12HR GT 09/26/16 21:00 10/26/16 20:59 10/08/16 09:00 Allergies: Coded Allergies: NIACIN (Verified Allergy, Unknown, ITCHING, 01/30/12) ROS Limited/Unobtainable: Yes Subjective 71 YO M admitted with volume overload and respiratory failure. S/P cardiopulmonary arrest. WILD. Intubated. Pancreatitis resolving. Cover for Af[facility] Salinas-Dr [place]. Objective Last Vital Signs Date Time Temp Pulse Resp B/P Pulse Ox O2 Delivery O2 Flow Rate FiO2 10/08/16 10:55 98 37 35 10/08/16 09:01 112/43 10/08/16 08:00 98.5 100 Mechanical Ventilator 10/07/16 18:00 100.0 Laboratory Tests Test 10/08/16 04:00 10/08/16 04:20 Sodium Level 142 mEQ/L (135-145) Potassium Level 4.2 mEQ/L (3.4-4.9) Chloride Level 97 mEQ/L (98-107) L Carbon Dioxide Level 28 mEQ/L (20-30) Anion Gap 17 (5-15) H Blood Urea Nitrogen 47 mg/dL (7-23) #H Creatinine 4.4 mg/dL (0.7-1.2) H Estimat Glomerular Filtration Rate 13.4 mL/min (>60) Glucose Level 119 mg/dL (74-106) H Calcium Level 9.7 mg/dL (8.6-10.2) Phosphorus Level 4.3 mg/dL (2.5-4.8) Magnesium Level 2.0 mg/dL (1.7-2.5) Total Bilirubin 0.2 mg/dL (0.0-1.2) Aspartate Amino Transf (AST/SGOT) 27 U/L (5-40) Alanine Aminotransferase (ALT/SGPT) 8 U/L (3-41) Alkaline Phosphatase 147 U/L (40-129) H Total Protein 6.7 g/dL (6.6-8.7) Albumin 2.4 g/dL (3.5-5.2) L Globulin 4.3 g/dL Albumin/Globulin Ratio 0.5 (1.0-2.7) L White Blood Count 13.3 K/UL (4.8-10.8) H Red Blood Count 2.56 M/UL (4.70-6.10) L Hemoglobin 8.2 G/DL (14.2-18.0) L Hematocrit 24.6 % (42.0-52.0) L Mean Corpuscular Volume 96 FL (80-99) Mean Corpuscular Hemoglobin 32.2 PG (27.0-31.0) H Mean Corpuscular Hemoglobin Concent 33.5 G/DL (32.0-36.0) Red Cell Distribution Width 16.3 % (11.6-14.8) H Platelet Count 322 K/UL (150-450) Mean Platelet Volume 5.4 FL (6.5-10.1) L Neutrophils (%) (Auto) 65.0 % (45.0-75.0) Lymphocytes (%) (Auto) 15.6 % (20.0-45.0) L Monocytes (%) (Auto) 13.6 % (1.0-10.0) H Eosinophils (%) (Auto) 2.4 % (0.0-3.0) Basophils (%) (Auto) 3.4 % (0.0-2.0) H Amylase Level 189 U/L (10-110) H Lipase 219 U/L (< 60) H Intake and Output 10/07/16 10/08/16 19:00 07:00 Intake Total 930 ml 900 ml Output Total 3100 ml Balance -2170 ml 900 ml IV Total 780 ml 900 ml Other 150 ml Hemodialysis UF 3100 ml # Voids 2 # Bowel Movements 3 4 Objective General Appearance: WD/WN, lethargic EENT: PERRL/EOMI, normal ENT inspection, TMs normal Neck: non-tender, normal alignment, supple Cardiovascular: normal peripheral pulses, normal rate, regular rhythm, no gallop/murmur, no JVD Respiratory/Chest: Trach; Mech vent; chest wall non-tender, crackles/rales, rhonchi - bilaterally, expiratory wheezing Abdomen: normal bowel sounds, non tender, soft, no organomegaly Skin: normal pigmentation, warm/dry Assessment/Plan Problem List: (1) HTN (hypertension) Assessment & Plan: Cont amlodipine. (2) Hyperkalemia (3) Respiratory failure with hypoxia Assessment & Plan: Intubated and sedated. S/P Tracheostomy 09/24/16. (4) ESRD (end stage renal disease) Assessment & Plan: See nephrology note. next Hemodialysis 10/07/16 per nephrology (5) CHF (congestive heart failure) (6) Diabetes mellitus Assessment & Plan: Cont novolog sliding scale. 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 Continue depakote and dilantin (9) Anoxic encephalopathy syndrome Assessment & Plan: See neruo note. (10) Enterobacter sepsis (11) Pneumonia Assessment & Plan: Enterobacter. Cont zosyn per ID (12) Anemia (13) Dysphagia Assessment & Plan: S/P PEG 09/23/16. (14) Cholecystitis, acute Assessment & Plan: See Surgery note. Not surgical candidate at this time. Continue zosyn per ID (15) Pancreatitis, acute Assessment & Plan: Improving amylase and lipase. See GI note. Hold tube feeds ; continue TPN. (16) Fever Assessment & Plan: See ID note. Status: not improved Assessment/Plan See case management note for discharge planning. Discussed with son and at bedside. FILIBERTO CLANCY Oct 08, 2016 11:42
--- NOTE | 2016-10-08 11:51 | Infectious Diseases Prog Note ---
Assessment/Plan Assessment/Plan antibiotics : zosyn A 1. enterobacter pneumonia /p rx 2. respiratory failure 3. renal failure 4. leucocytosis improving 5. s/p cardiac arrest 6. acute pancreatitis resolving P 1. continue zosyn 2. will follow up cultures Subjective ROS Limited/Unobtainable: Yes Allergies: Coded Allergies: NIACIN (Verified Allergy, Unknown, ITCHING, 01/30/12) Objective Vital Signs Last 24 Hour Vital Signs Date Time Temp Pulse Resp B/P Pulse Ox O2 Delivery O2 Flow Rate FiO2 10/08/16 10:55 98 37 35 10/08/16 09:18 97 28 35 10/08/16 09:01 112/43 10/08/16 09:00 96 112/43 10/08/16 08:00 98.5 91 22 117/57 100 Mechanical Ventilator 35 10/08/16 08:00 98 10/08/16 08:00 35 10/08/16 06:33 81 35 35 10/08/16 04:51 95 26 35 10/08/16 04:00 99.8 97 25 135/76 100 Mechanical Ventilator 10/08/16 04:00 92 10/08/16 04:00 35 10/08/16 03:20 90 14 35 10/08/16 01:18 95 23 35 10/08/16 00:08 99.5 99 22 92/49 100 Mechanical Ventilator 10/08/16 00:00 98 10/08/16 00:00 35 10/07/16 23:10 103 33 35 10/07/16 21:14 101 26 35 10/07/16 20:00 99.6 108 32 135/44 100 Mechanical Ventilator 35 10/07/16 20:00 35 10/07/16 20:00 95 10/07/16 19:33 103 33 35 10/07/16 18:05 116/41 10/07/16 18:00 Mechanical Ventilator 100.0 35 10/07/16 16:40 113 33 35 10/07/16 16:00 111 10/07/16 16:00 35 10/07/16 15:52 98.5 111 22 116/41 Mechanical Ventilator 10/07/16 14:58 100 31 35 10/07/16 13:40 Mechanical Ventilator 100.0 35 10/07/16 12:41 92 30 35 10/07/16 12:00 35 10/07/16 12:00 97 10/07/16 11:53 98.2 100 22 147/69 Mechanical Ventilator Height (Feet): 5 Height (Inches): 9.00 Weight (Pounds): 172 HEENT: status post trach Respiratory/Chest: lungs clear Cardiovascular: normal rate, regular rhythm, no gallop/murmur Abdomen: soft, non tender, other - GT Extremities: no edema, other - right subclavian Laboratory Tests Test 10/08/16 04:00 10/08/16 04:20 Sodium Level 142 mEQ/L (135-145) Potassium Level 4.2 mEQ/L (3.4-4.9) Chloride Level 97 mEQ/L (98-107) L Carbon Dioxide Level 28 mEQ/L (20-30) Anion Gap 17 (5-15) H Blood Urea Nitrogen 47 mg/dL (7-23) #H Creatinine 4.4 mg/dL (0.7-1.2) H Estimat Glomerular Filtration Rate 13.4 mL/min (>60) Glucose Level 119 mg/dL (74-106) H Calcium Level 9.7 mg/dL (8.6-10.2) Phosphorus Level 4.3 mg/dL (2.5-4.8) Magnesium Level 2.0 mg/dL (1.7-2.5) Total Bilirubin 0.2 mg/dL (0.0-1.2) Aspartate Amino Transf (AST/SGOT) 27 U/L (5-40) Alanine Aminotransferase (ALT/SGPT) 8 U/L (3-41) Alkaline Phosphatase 147 U/L (40-129) H Total Protein 6.7 g/dL (6.6-8.7) Albumin 2.4 g/dL (3.5-5.2) L Globulin 4.3 g/dL Albumin/Globulin Ratio 0.5 (1.0-2.7) L White Blood Count 13.3 K/UL (4.8-10.8) H Red Blood Count 2.56 M/UL (4.70-6.10) L Hemoglobin 8.2 G/DL (14.2-18.0) L Hematocrit 24.6 % (42.0-52.0) L Mean Corpuscular Volume 96 FL (80-99) Mean Corpuscular Hemoglobin 32.2 PG (27.0-31.0) H Mean Corpuscular Hemoglobin Concent 33.5 G/DL (32.0-36.0) Red Cell Distribution Width 16.3 % (11.6-14.8) H Platelet Count 322 K/UL (150-450) Mean Platelet Volume 5.4 FL (6.5-10.1) L Neutrophils (%) (Auto) 65.0 % (45.0-75.0) Lymphocytes (%) (Auto) 15.6 % (20.0-45.0) L Monocytes (%) (Auto) 13.6 % (1.0-10.0) H Eosinophils (%) (Auto) 2.4 % (0.0-3.0) Basophils (%) (Auto) 3.4 % (0.0-2.0) H Amylase Level 189 U/L (10-110) H Lipase 219 U/L (< 60) H LEWIS ADAMS Oct 08, 2016 11:51
--- NOTE | 2016-10-08 12:06 | Diagnostic Imaging Report ---
Indication: Dyspnea Comparison: 09/21/16 A single view chest radiograph was obtained. Findings: Mild interstitial edema suspected. Tracheostomy and right jugular permacath are in good position. The heart is borderline enlarged. Bones are osteopenic. Impression: Suspected mild interstitial edema
--- NOTE | 2016-10-08 14:33 | Nephrology Progress Note ---
Assessment/Plan Problem List: (1) ESRD (end stage renal disease) (2) Anoxic encephalopathy syndrome (3) Respiratory failure with hypoxia (4) CHF (congestive heart failure) (5) HTN (hypertension) (6) Acute pancreatitis Assessment: better (7) Pneumonia Assessment: enterobacter (8) Anemia Assessment: better Plan HD tomorrow Cont TPN Vent support follow labs abxs cont Epogen Discussed with RN and case packer Discussed with GI Subjective Subjective In NAD Objective Objective Last 24 Hour Vital Signs Date Time Temp Pulse Resp B/P Pulse Ox O2 Delivery O2 Flow Rate FiO2 10/08/16 13:23 68 33 35 10/08/16 12:00 35 10/08/16 12:00 99.0 95 25 109/59 100 Mechanical Ventilator 35 10/08/16 12:00 90 10/08/16 10:55 98 37 35 10/08/16 09:18 97 28 35 10/08/16 09:01 112/43 10/08/16 09:00 96 112/43 10/08/16 08:00 98.5 91 22 117/57 100 Mechanical Ventilator 35 10/08/16 08:00 98 10/08/16 08:00 35 10/08/16 06:33 81 35 35 10/08/16 04:51 95 26 35 10/08/16 04:00 99.8 97 25 135/76 100 Mechanical Ventilator 10/08/16 04:00 92 10/08/16 04:00 35 10/08/16 03:20 90 14 35 10/08/16 01:18 95 23 35 10/08/16 00:08 99.5 99 22 92/49 100 Mechanical Ventilator 35 10/08/16 00:00 98 10/08/16 00:00 35 10/07/16 23:10 103 33 35 10/07/16 21:14 101 26 35 10/07/16 20:00 99.6 108 32 135/44 100 Mechanical Ventilator 35 10/07/16 20:00 35 10/07/16 20:00 95 10/07/16 19:33 103 33 35 10/07/16 18:05 116/41 10/07/16 18:00 Mechanical Ventilator 100.0 35 10/07/16 16:40 113 33 35 10/07/16 16:00 111 10/07/16 16:00 35 10/07/16 15:52 98.5 111 22 116/41 Mechanical Ventilator 10/07/16 14:58 100 31 35 Intake and Output 10/07/16 10/08/16 19:00 07:00 Intake Total 930 ml 900 ml Output Total 3100 ml Balance -2170 ml 900 ml IV Total 780 ml 900 ml Other 150 ml Hemodialysis UF 3100 ml # Voids 2 # Bowel Movements 3 4 Laboratory Tests 10/08/16 04:00: Sodium Level 142, Potassium Level 4.2, Chloride Level 97L, Carbon Dioxide Level 28, Anion Gap 17H, Blood Urea Nitrogen 47#H, Creatinine 4.4H, Estimat Glomerular Filtration Rate 13.4, Glucose Level 119H, Calcium Level 9.7, Phosphorus Level 4.3, Magnesium Level 2.0, Total Bilirubin 0.2, Aspartate Amino Transf (AST/SGOT) 27, Alanine Aminotransferase (ALT/SGPT) 8, Alkaline Phosphatase 147H, Total Protein 6.7, Albumin 2.4L, Globulin 4.3, Albumin/ Globulin Ratio 0.5L 10/08/16 04:20: White Blood Count 13.3H, Red Blood Count 2.56L, Hemoglobin 8.2L, Hematocrit 24.6L, Mean Corpuscular Volume 96, Mean Corpuscular Hemoglobin 32.2H, Mean Corpuscular Hemoglobin Concent 33.5, Red Cell Distribution Width 16.3H, Platelet Count 322, Mean Platelet Volume 5.4L, Neutrophils (%) (Auto) 65.0, Lymphocytes (%) (Auto) 15.6L, Monocytes (%) (Auto) 13.6H, Eosinophils (%) (Auto ) 2.4, Basophils (%) (Auto) 3.4H, Amylase Level 189H, Lipase 219H Height (Feet): 5 Height (Inches): 9.00 Weight (Pounds): 172 Cardiovascular: normal rate Respiratory/Chest: rhonchi - bilaterally Extremities: trace edema CANDICE BREAUX Oct 08, 2016 14:33
[2016-10-08] MEDS: LORazepam Inj 2mg/ml 1ml IV PRN (16:28)
[2016-10-08] MEDS ORDERED: NS 275ml ONE (17:42)
[2016-10-08] MEDS ORDERED: Tubing IV Secondary IV ONE (17:46)
[2016-10-08] MEDS ORDERED: Sterile Water Irrig 1000ml IRRIG ONE (17:46)
--- NOTE | 2016-10-08 19:04 | Cardiology Progress Note ---
Assessment/Plan Assessment/Plan cardiopulm arrest anoxic encephalopathy esrd on hd noncompliant with dialysis htn chronic diastolic failure hx cad status epilepticus fever UGIB possible DM gastroparesis Acute pancreatitis, presumed due to gallstone pancreatic enzyme on down trend dialysis bp seems ok now d/w family agitatted move all 4 ext but nto respond or communicate Subjective Subjective on vent not comminicative not responsive moves around sitter at bedside to help prevent self inflicted problems Objective Last 24 Hour Vital Signs Date Time Temp Pulse Resp B/P Pulse Ox O2 Delivery O2 Flow Rate FiO2 10/08/16 17:20 99/50 10/08/16 16:42 89 12 35 10/08/16 16:00 99.1 94 32 99/50 100 Mechanical Ventilator 35 10/08/16 16:00 93 10/08/16 16:00 35 10/08/16 14:36 91 16 35 10/08/16 13:23 68 33 35 10/08/16 12:00 35 10/08/16 12:00 99.0 95 25 109/59 100 Mechanical Ventilator 35 10/08/16 12:00 90 10/08/16 10:55 98 37 35 10/08/16 09:18 97 28 35 10/08/16 09:01 112/43 10/08/16 09:00 96 112/43 10/08/16 08:00 98.5 91 22 117/57 100 Mechanical Ventilator 35 10/08/16 08:00 98 10/08/16 08:00 35 10/08/16 06:33 81 35 35 10/08/16 04:51 95 26 35 10/08/16 04:00 99.8 97 25 135/76 100 Mechanical Ventilator 10/08/16 04:00 92 10/08/16 04:00 35 10/08/16 03:20 90 14 35 10/08/16 01:18 95 23 35 10/08/16 00:08 99.5 99 22 92/49 100 Mechanical Ventilator 35 10/08/16 00:00 98 10/08/16 00:00 35 10/07/16 23:10 103 33 35 10/07/16 21:14 101 26 35 10/07/16 20:00 99.6 108 32 135/44 100 Mechanical Ventilator 35 10/07/16 20:00 35 10/07/16 20:00 95 10/07/16 19:33 103 33 35 General Appearance: no apparent distress, agitated Neck: no JVD Cardiovascular: normal rate, regular rhythm Respiratory/Chest: lungs clear, normal breath sounds Abdomen: normal bowel sounds, non tender, soft Extremities: no swelling Intake and Output 10/07/16 10/08/16 19:00 07:00 Intake Total 930 ml 900 ml Output Total 3100 ml Balance -2170 ml 900 ml IV Total 780 ml 900 ml Other 150 ml Hemodialysis UF 3100 ml # Voids 2 # Bowel Movements 3 4 Laboratory Tests Test 10/08/16 04:00 10/08/16 04:20 Sodium Level 142 mEQ/L (135-145) Potassium Level 4.2 mEQ/L (3.4-4.9) Chloride Level 97 mEQ/L (98-107) L Carbon Dioxide Level 28 mEQ/L (20-30) Anion Gap 17 (5-15) H Blood Urea Nitrogen 47 mg/dL (7-23) #H Creatinine 4.4 mg/dL (0.7-1.2) H Estimat Glomerular Filtration Rate 13.4 mL/min (>60) Glucose Level 119 mg/dL (74-106) H Calcium Level 9.7 mg/dL (8.6-10.2) Phosphorus Level 4.3 mg/dL (2.5-4.8) Magnesium Level 2.0 mg/dL (1.7-2.5) Total Bilirubin 0.2 mg/dL (0.0-1.2) Aspartate Amino Transf (AST/SGOT) 27 U/L (5-40) Alanine Aminotransferase (ALT/SGPT) 8 U/L (3-41) Alkaline Phosphatase 147 U/L (40-129) H Total Protein 6.7 g/dL (6.6-8.7) Albumin 2.4 g/dL (3.5-5.2) L Globulin 4.3 g/dL Albumin/Globulin Ratio 0.5 (1.0-2.7) L White Blood Count 13.3 K/UL (4.8-10.8) H Red Blood Count 2.56 M/UL (4.70-6.10) L Hemoglobin 8.2 G/DL (14.2-18.0) L Hematocrit 24.6 % (42.0-52.0) L Mean Corpuscular Volume 96 FL (80-99) Mean Corpuscular Hemoglobin 32.2 PG (27.0-31.0) H Mean Corpuscular Hemoglobin Concent 33.5 G/DL (32.0-36.0) Red Cell Distribution Width 16.3 % (11.6-14.8) H Platelet Count 322 K/UL (150-450) Mean Platelet Volume 5.4 FL (6.5-10.1) L Neutrophils (%) (Auto) 65.0 % (45.0-75.0) Lymphocytes (%) (Auto) 15.6 % (20.0-45.0) L Monocytes (%) (Auto) 13.6 % (1.0-10.0) H Eosinophils (%) (Auto) 2.4 % (0.0-3.0) Basophils (%) (Auto) 3.4 % (0.0-2.0) H Amylase Level 189 U/L (10-110) H Lipase 219 U/L (< 60) H HUSSEIN CAGE Oct 08, 2016 19:04
[2016-10-08] MEDS: FAT EMULSION 20% IV SCH (19:54)
[2016-10-08] MEDS: TPN IV SCH (19:54)
[2016-10-08] MEDS: Epogen (for ESRD on dialysis) SUBQ SCH (21:01)
[2016-10-08] MEDS: Dyna-Hex 2% Top Sol 8oz TOPIC SCH (21:02)
[2016-10-09] MEDS: Metoclopramide 10mg/10ml Liq GT SCH ×4 (00:08→17:40)
[2016-10-09] MEDS: NovoLOG Insulin Flexpen SUBQ SCH ×4 (00:12→17:39)
[2016-10-09] MEDS: LORazepam Inj 2mg/ml 1ml IV PRN ×2 (02:21→13:32)
[2016-10-09 04:00] VITALS: BP 126/69
[2016-10-09] MEDS ORDERED: Heparin Sod 1000 units/ml 10ml IV ONE (06:00)
[2016-10-09] MEDS: Piperacillin/Tazobactam 2.25 GM in D5W 55 ML IVPB SCH ×2 (06:18→13:46)
[2016-10-09 08:00] VITALS: BP 142/86
[2016-10-09] MEDS: Valproic Acid 250mg/5ml Liquid GT SCH ×2 (08:46→16:44)
[2016-10-09] MEDS: Bethanechol 10mg Tab GT SCH ×3 (08:47→17:40)
[2016-10-09] MEDS: Phenytoin Susp 100mg/4ml GT SCH (08:47)
[2016-10-09] MEDS: Minoxidil 10mg tab GT SCH ×2 (08:48→17:40)
[2016-10-09] MEDS: Heparin 5000 units/ml inj SUBQ SCH (08:49)
[2016-10-09 12:00] VITALS: BP 123/50
--- NOTE | 2016-10-09 12:29 | Nephrology Progress Note ---
Assessment/Plan Problem List: (1) ESRD (end stage renal disease) (2) Anoxic encephalopathy syndrome (3) Respiratory failure with hypoxia (4) CHF (congestive heart failure) (5) HTN (hypertension) (6) Acute pancreatitis Assessment: better (7) Pneumonia Assessment: enterobacter (8) Anemia Assessment: better Plan HD as tolerated Cont TPN Vent support follow labs abxs cont Epogen Discussed with RN and rifle case repairerday spa manager to [place] today Subjective Subjective restless Objective Objective Last 24 Hour Vital Signs Date Time Temp Pulse Resp B/P Pulse Ox O2 Delivery O2 Flow Rate FiO2 10/09/16 12:00 35 10/09/16 12:00 97.0 92 20 123/50 100 Mechanical Ventilator 35 10/09/16 10:46 94 21 35 10/09/16 08:48 142/86 10/09/16 08:47 94 142/86 10/09/16 08:35 94 25 35 10/09/16 08:00 97 10/09/16 08:00 99.1 101 20 142/86 100 Mechanical Ventilator 10/09/16 08:00 35 10/09/16 07:16 107 23 35 10/09/16 05:01 91 14 35 10/09/16 04:00 35 10/09/16 04:00 92 10/09/16 04:00 99.1 97 20 126/69 100 Mechanical Ventilator 10/09/16 03:01 94 29 35 10/09/16 01:30 103 32 35 10/09/16 00:00 85 10/09/16 00:00 35 10/08/16 23:48 99.8 88 17 101/48 100 Mechanical Ventilator 10/08/16 23:30 91 30 35 10/08/16 21:30 96 20 35 10/08/16 20:00 35 10/08/16 20:00 96 10/08/16 19:54 99.4 98 20 118/66 100 Mechanical Ventilator 10/08/16 19:30 100 27 35 10/08/16 17:20 99/50 10/08/16 16:42 89 12 35 10/08/16 16:00 99.1 94 32 99/50 100 Mechanical Ventilator 35 10/08/16 16:00 93 10/08/16 16:00 35 10/08/16 14:36 91 16 35 10/08/16 13:23 68 33 35 Intake and Output 10/08/16 10/09/16 19:00 07:00 Intake Total 1034 ml 1013 ml Output Total 4 ml Balance 1034 ml 1009 ml IV Total 914 ml 913 ml Other 120 ml 100 ml Stool Total 4 ml # Voids 1 # Bowel Movements 8 5 Height (Feet): 5 Height (Inches): 9.00 Weight (Pounds): 185 Cardiovascular: normal rate Respiratory/Chest: rhonchi - bilaterally Extremities: other - no edema CANDICE BREAUX Oct 09, 2016 12:29
[2016-10-09 14:29] LABS: BASOPHILS % (AUTO) 4.1 % (0.0-2.0); EOSINOPHILS % (AUTO) 1.2 % (0.0-3.0); LYMPHOCYTES % (AUTO) 14.1 % (20.0-45.0); MEAN CORPUSCULAR HEMOGLOBIN 31.2 PG (27.0-31.0); MEAN CORPUSCULAR HGB CONC 32.4 G/DL (32.0-36.0); MEAN CORPUSCULAR VOLUME 96 FL (80-99); MEAN PLATELET VOLUME 5.2 FL (6.5-10.1); MONOCYTES % (AUTO) 16.5 % (1.0-10.0); NEUTROPHILS % (AUTO) 64.1 % (45.0-75.0); PLATELET COUNT 345 K/UL (150-450); RED BLOOD COUNT 2.57 M/UL (4.70-6.10); RED CELL DISTRIBUTION WIDTH 16.9 % (11.6-14.8); WHITE BLOOD COUNT 11.6 K/UL (4.8-10.8)
[2016-10-09 14:36] LABS: CALCIUM 9.9 mg/dL (8.6-10.2); GLOMERULAR FILTRATION RATE 9.3 mL/min (>60); PHOSPHORUS 5.6 mg/dL (2.5-4.8); POTASSIUM 4.1 mEQ/L (3.4-4.9)
--- NOTE | 2016-10-09 14:55 | General Progress Note ---
Assessment/Plan Problem List: (1) HTN (hypertension) ICD Codes: I10 - Essential (primary) hypertension SNOMED: 72827871 (2) COPD (chronic obstructive pulmonary disease) ICD Codes: J44.9 - Chronic obstructive pulmonary disease, unspecified SNOMED: 33133100 (3) ESRD (end stage renal disease) ICD Codes: N18.6 - End stage renal disease SNOMED: 89361738 (4) Diabetes mellitus ICD Codes: E11.9 - Type 2 diabetes mellitus without complications SNOMED: 26837109 (5) Pancreatitis, acute ICD Codes: K85.90 - Acute pancreatitis without necrosis or infection, unspecified SNOMED: 636922213 Assessment/Plan Recommendations - PPI - BID - transfuse PRN - Reglan / bethanecol - continue TPN - continue to follow amylase and lipase - will resume TF once amylase and lipase closer to resolution - abx per ID Subjective ROS Limited/Unobtainable: No Allergies: Coded Allergies: NIACIN (Verified Allergy, Unknown, ITCHING, 01/30/12) Subjective no event Objective Last 24 Hour Vital Signs Date Time Temp Pulse Resp B/P Pulse Ox O2 Delivery O2 Flow Rate FiO2 10/09/16 12:43 100 25 35 10/09/16 12:40 Mechanical Ventilator 100.0 35 10/09/16 12:00 35 10/09/16 12:00 97.0 92 20 123/50 100 Mechanical Ventilator 35 10/09/16 12:00 97 10/09/16 10:46 94 21 35 10/09/16 08:48 142/86 10/09/16 08:47 94 142/86 10/09/16 08:35 94 25 35 10/09/16 08:00 97 10/09/16 08:00 99.1 101 20 142/86 100 Mechanical Ventilator 10/09/16 08:00 35 10/09/16 07:16 107 23 35 10/09/16 05:01 91 14 35 10/09/16 04:00 35 10/09/16 04:00 92 10/09/16 04:00 99.1 97 20 126/69 100 Mechanical Ventilator 10/09/16 03:01 94 29 35 10/09/16 01:30 103 32 35 10/09/16 00:00 85 10/09/16 00:00 35 10/08/16 23:48 99.8 88 17 101/48 100 Mechanical Ventilator 10/08/16 23:30 91 30 35 10/08/16 21:30 96 20 35 10/08/16 20:00 35 10/08/16 20:00 96 10/08/16 19:54 99.4 98 20 118/66 100 Mechanical Ventilator 10/08/16 19:30 100 27 35 10/08/16 17:20 99/50 10/08/16 16:42 89 12 35 10/08/16 16:00 99.1 94 32 99/50 100 Mechanical Ventilator 35 10/08/16 16:00 93 10/08/16 16:00 35 Intake and Output 10/08/16 10/09/16 19:00 07:00 Intake Total 1034 ml 1013 ml Output Total 4 ml Balance 1034 ml 1009 ml IV Total 914 ml 913 ml Other 120 ml 100 ml Stool Total 4 ml # Voids 1 # Bowel Movements 8 5 Laboratory Tests 10/09/16 13:55: White Blood Count 11.6H, Red Blood Count 2.57L, Hemoglobin 8.0L, Hematocrit 24.8L, Mean Corpuscular Volume 96, Mean Corpuscular Hemoglobin 31.2H, Mean Corpuscular Hemoglobin Concent 32.4, Red Cell Distribution Width 16.9H, Platelet Count 345, Mean Platelet Volume 5.2L, Neutrophils (%) (Auto) 64.1, Lymphocytes (%) (Auto) 14.1L, Monocytes (%) (Auto) 16.5H, Eosinophils (%) (Auto ) 1.2, Basophils (%) (Auto) 4.1H, Sodium Level 146H, Potassium Level 4.1, Chloride Level 99, Carbon Dioxide Level 26, Anion Gap 21H, Blood Urea Nitrogen 65H, Creatinine 6.0H, Estimat Glomerular Filtration Rate 9.3, Glucose Level 90, Calcium Level 9.9, Phosphorus Level 5.6H Height (Feet): 5 Height (Inches): 9.00 Weight (Pounds): 185 General Appearance: no apparent distress EENT: normal ENT inspection Neck: supple Cardiovascular: normal rate Respiratory/Chest: decreased breath sounds Abdomen: normal bowel sounds, non tender, soft Extremities: non-tender AYLIN MARSH Oct 09, 2016 14:55
[2016-10-09 16:10] VITALS: BP 108/50
--- NOTE | 2016-10-09 16:40 | Pulmonology Progress Note ---
Assessment/Plan Assessment/Plan 1. Status post cardiac arrest. 2. Renal failure with hyperkalemia. 3. Respiratory failure. 4. Anoxic encephalopathy. 5. Status epilepticus 6. Coronary artery disease. 7. History of cardiomyopathy. 8. Diabetes. 9. Hypertension. 10 Pancreatitis weaning not possible at present trach and vent dependent ok for transfer to [facility] disc w RN Subjective ROS Limited/Unobtainable: Yes Constitutional: Reports: no symptoms Allergies: Coded Allergies: NIACIN (Verified Allergy, Unknown, ITCHING, 01/30/12) Subjective agitated Objective Last 24 Hour Vital Signs Date Time Temp Pulse Resp B/P Pulse Ox O2 Delivery O2 Flow Rate FiO2 10/09/16 16:18 Mechanical Ventilator 100.0 35 10/09/16 16:10 97.7 97 18 108/50 100 Mechanical Ventilator 10/09/16 16:00 35 10/09/16 15:46 104 10/09/16 15:15 105 29 35 10/09/16 12:43 100 25 35 10/09/16 12:40 Mechanical Ventilator 100.0 35 10/09/16 12:00 35 10/09/16 12:00 97.0 92 20 123/50 100 Mechanical Ventilator 35 10/09/16 12:00 97 10/09/16 10:46 94 21 35 10/09/16 08:48 142/86 10/09/16 08:47 94 142/86 10/09/16 08:35 94 25 35 10/09/16 08:00 97 10/09/16 08:00 99.1 101 20 142/86 100 Mechanical Ventilator 10/09/16 08:00 35 10/09/16 07:16 107 23 35 10/09/16 05:01 91 14 35 10/09/16 04:00 35 10/09/16 04:00 92 10/09/16 04:00 99.1 97 20 126/69 100 Mechanical Ventilator 10/09/16 03:01 94 29 35 10/09/16 01:30 103 32 35 10/09/16 00:00 85 10/09/16 00:00 35 10/08/16 23:48 99.8 88 17 101/48 100 Mechanical Ventilator 10/08/16 23:30 91 30 35 10/08/16 21:30 96 20 35 10/08/16 20:00 35 10/08/16 20:00 96 7/5/17 19:54 99.4 98 20 118/66 100 Mechanical Ventilator 10/08/16 19:30 100 27 35 10/08/16 17:20 99/50 10/08/16 16:42 89 12 35 Intake and Output 10/08/16 10/09/16 19:00 07:00 Intake Total 1034 ml 1013 ml Output Total 4 ml Balance 1034 ml 1009 ml IV Total 914 ml 913 ml Other 120 ml 100 ml Stool Total 4 ml # Voids 1 # Bowel Movements 8 5 Objective poorly responsive General Appearance: no acute distress HEENT: anicteric Respiratory/Chest: lungs clear Cardiovascular: normal rate Laboratory Tests 10/09/16 13:55: White Blood Count 11.6H, Red Blood Count 2.57L, Hemoglobin 8.0L, Hematocrit 24.8L, Mean Corpuscular Volume 96, Mean Corpuscular Hemoglobin 31.2H, Mean Corpuscular Hemoglobin Concent 32.4, Red Cell Distribution Width 16.9H, Platelet Count 345, Mean Platelet Volume 5.2L, Neutrophils (%) (Auto) 64.1, Lymphocytes (%) (Auto) 14.1L, Monocytes (%) (Auto) 16.5H, Eosinophils (%) (Auto ) 1.2, Basophils (%) (Auto) 4.1H, Sodium Level 146H, Potassium Level 4.1, Chloride Level 99, Carbon Dioxide Level 26, Anion Gap 21H, Blood Urea Nitrogen 65H, Creatinine 6.0H, Estimat Glomerular Filtration Rate 9.3, Glucose Level 90, Calcium Level 9.9, Phosphorus Level 5.6H Current Medications Medications (Trade) Dose Ordered Sig/Mark Route PRN Reason Start Time Stop Time Status Last Admin Dose Admin Acetaminophen 650 mg 650 mg Q4H PRN GT Mild Pain/Temp > 100.5 10/05/16 02:45 11/04/16 02:44 Amlodipine Besylate (Norvasc) 10 mg DAILY GT 09/27/16 09:00 10/27/16 08:59 10/09/16 08:47 Bethanechol Chloride (Urecholine) 10 mg THREE TIMES A DAY GT 10/05/16 09:00 11/04/16 08:59 10/09/16 12:03 Chlorhexidine Gluconate (Lakshmi-Hex 2%) 1 applic Q24H TOPIC 09/26/16 21:00 10/26/16 20:59 10/08/16 21:02 Dextrose (D10w) 1,000 ml @ 0 mls/hr Q24H PRN IV PN interrupted or unavailable 09/28/16 21:00 10/28/16 20:59 Dextrose (Dextrose 50%) STAT PRN IV Hypoglycemia 09/28/16 12:00 10/28/16 11:59 10/04/16 11:49 Epoetin Kiko (Procrit (for ESRD on dialysis)) 10,000 units THU-THU-THU SUBQ 09/29/16 21:00 10/29/16 20:59 10/08/16 21:01 Fat Emulsion Intravenous/Amino Acids/ Electrolytes/ Dextrose (Intralipids/Tpn) 1,608 ml @ 67 mls/hr Q24H IV 10/05/16 21:00 11/04/16 20:59 10/08/16 19:54 Heparin Sodium (Porcine) (Heparin 5000 units/ml) 5,000 units EVERY 12 HOURS SUBQ 09/26/16 21:00 10/26/16 20:59 10/09/16 08:49 Insulin Aspart (NovoLOG) EVERY 6 HOURS SUBQ 09/26/16 12:00 10/26/16 11:59 10/09/16 00:12 Lansoprazole (Prevacid) 30 mg DAILY GT 09/27/16 09:00 10/27/16 08:59 10/09/16 08:47 Lorazepam 1 mg 1 mg Q2HR PRN IV For Anxiety 10/05/16 20:00 10/12/16 19:59 10/09/16 13:32 Metoclopramide HCl (Reglan) 5 mg Q6HR GT 10/05/16 06:00 11/04/16 05:59 10/09/16 12:03 Minoxidil (Loniten) 15 mg BID GT 09/26/16 18:00 10/26/16 17:59 10/09/16 08:48 Phenytoin (Dilantin) 300 mg Q12HR GT 09/26/16 21:00 10/26/16 20:59 10/09/16 08:47 Phenytoin/Sodium Chloride (Dilantin/Sodium Chloride) 120 ml @ 120 mls/hr POSTHD IVPB 09/26/16 21:00 10/26/16 20:59 10/07/16 23:33 Phytonadione (Vitamin K) 10 mg QWEEK SUBQ 09/28/16 21:00 10/28/16 20:59 10/05/16 20:46 Piperacillin Sod/ Tazobactam Sod 2.25 gm/Dextrose 55 ml @ 110 mls/hr Q8HR IVPB 10/06/16 14:00 10/14/16 13:59 10/09/16 06:18 Polyethylene Glycol (Miralax) 17 gm DAILYPRN PRN GT Constipation 10/05/16 02:45 11/04/16 02:44 Sodium Chloride (Sodium Chloride 1000ml bag) 1,000 ml @ 500 mls/hr Q2H PRN IVLG sbp<90 during hd 10/09/16 15:00 10/09/16 23:59 Valproic Acid (Depakene) 1,000 mg POSTHD GT 09/26/16 11:00 10/26/16 10:59 10/07/16 23:33 Valproic Acid 1500 mg 1,500 mg Q12HR GT 09/26/16 21:00 10/26/16 20:59 10/09/16 08:46 CHLOE ESQUIVEL Oct 09, 2016 16:40
[2016-10-09] MEDS: Phenytoin 500 MG in NS 110 ML IVPB SCH (16:44)
--- NOTE | 2016-10-09 17:51 | Internal Med Progress Note ---
Subjective Date of Service: Oct 09, 2016 Physician Name Filiberto Clancy Attending Physician Harrison Delatorre Current Medications Medications (Trade) Dose Ordered Sig/Mark Route PRN Reason Start Time Stop Time Status Last Admin Dose Admin Acetaminophen 650 mg 650 mg Q4H PRN GT Mild Pain/Temp > 100.5 10/05/16 02:45 11/04/16 02:44 Amlodipine Besylate (Norvasc) 10 mg DAILY GT 09/27/16 09:00 10/27/16 08:59 10/09/16 08:47 Bethanechol Chloride (Urecholine) 10 mg THREE TIMES A DAY GT 10/05/16 09:00 11/04/16 08:59 10/09/16 17:40 Chlorhexidine Gluconate (Lakshmi-Hex 2%) 1 applic Q24H TOPIC 09/26/16 21:00 10/26/16 20:59 10/08/16 21:02 Dextrose (D10w) 1,000 ml @ 0 mls/hr Q24H PRN IV PN interrupted or unavailable 09/28/16 21:00 10/28/16 20:59 Dextrose (Dextrose 50%) STAT PRN IV Hypoglycemia 09/28/16 12:00 10/28/16 11:59 10/04/16 11:49 Epoetin Kiko (Procrit (for ESRD on dialysis)) 10,000 units THU-THU-THU SUBQ 09/29/16 21:00 10/29/16 20:59 10/08/16 21:01 Fat Emulsion Intravenous/Amino Acids/ Electrolytes/ Dextrose (Intralipids/Tpn) 1,608 ml @ 67 mls/hr Q24H IV 10/05/16 21:00 11/04/16 20:59 10/08/16 19:54 Heparin Sodium (Porcine) (Heparin 5000 units/ml) 5,000 units EVERY 12 HOURS SUBQ 09/26/16 21:00 10/26/16 20:59 10/09/16 08:49 Insulin Aspart (NovoLOG) EVERY 6 HOURS SUBQ 09/26/16 12:00 10/26/16 11:59 10/09/16 00:12 Lansoprazole (Prevacid) 30 mg DAILY GT 09/27/16 09:00 10/27/16 08:59 10/09/16 08:47 Lorazepam 1 mg 1 mg Q2HR PRN IV For Anxiety 10/05/16 20:00 10/12/16 19:59 10/09/16 13:32 Metoclopramide HCl (Reglan) 5 mg Q6HR GT 10/05/16 06:00 11/04/16 05:59 10/09/16 17:40 Minoxidil (Loniten) 15 mg BID GT 09/26/16 18:00 10/26/16 17:59 10/09/16 17:40 Phenytoin (Dilantin) 300 mg Q12HR GT 09/26/16 21:00 10/26/16 20:59 10/09/16 08:47 Phenytoin/Sodium Chloride (Dilantin/Sodium Chloride) 120 ml @ 120 mls/hr POSTHD IVPB 09/26/16 21:00 10/26/16 20:59 10/09/16 16:44 Phytonadione (Vitamin K) 10 mg QWEEK SUBQ 09/28/16 21:00 10/28/16 20:59 10/05/16 20:46 Piperacillin Sod/ Tazobactam Sod 2.25 gm/Dextrose 55 ml @ 110 mls/hr Q8HR IVPB 10/06/16 14:00 10/14/16 13:59 10/09/16 06:18 Polyethylene Glycol (Miralax) 17 gm DAILYPRN PRN GT Constipation 10/05/16 02:45 11/04/16 02:44 Sodium Chloride (Sodium Chloride 1000ml bag) 1,000 ml @ 500 mls/hr Q2H PRN IVLG sbp<90 during hd 10/09/16 15:00 10/09/16 23:59 Valproic Acid (Depakene) 1,000 mg POSTHD GT 09/26/16 11:00 10/26/16 10:59 10/09/16 16:44 Valproic Acid 1500 mg 1,500 mg Q12HR GT 09/26/16 21:00 10/26/16 20:59 10/09/16 08:46 Allergies: Coded Allergies: NIACIN (Verified Allergy, Unknown, ITCHING, 01/30/12) ROS Limited/Unobtainable: Yes Subjective 71 YO M admitted with volume overload and respiratory failure. S/P cardiopulmonary arrest. [facility]. Intubated. Pancreatitis resolving. Cover for Int Med-Dr Vail. Objective Last Vital Signs Date Time Temp Pulse Resp B/P Pulse Ox O2 Delivery O2 Flow Rate FiO2 10/09/16 17:40 150/68 10/09/16 16:49 105 29 35 10/09/16 16:18 Mechanical Ventilator 100.0 10/09/16 16:10 97.7 100 Laboratory Tests Test 10/09/16 13:55 White Blood Count 11.6 K/UL (4.8-10.8) H Red Blood Count 2.57 M/UL (4.70-6.10) L Hemoglobin 8.0 G/DL (14.2-18.0) L Hematocrit 24.8 % (42.0-52.0) L Mean Corpuscular Volume 96 FL (80-99) Mean Corpuscular Hemoglobin 31.2 PG (27.0-31.0) H Mean Corpuscular Hemoglobin Concent 32.4 G/DL (32.0-36.0) Red Cell Distribution Width 16.9 % (11.6-14.8) H Platelet Count 345 K/UL (150-450) Mean Platelet Volume 5.2 FL (6.5-10.1) L Neutrophils (%) (Auto) 64.1 % (45.0-75.0) Lymphocytes (%) (Auto) 14.1 % (20.0-45.0) L Monocytes (%) (Auto) 16.5 % (1.0-10.0) H Eosinophils (%) (Auto) 1.2 % (0.0-3.0) Basophils (%) (Auto) 4.1 % (0.0-2.0) H Sodium Level 146 mEQ/L (135-145) H Potassium Level 4.1 mEQ/L (3.4-4.9) Chloride Level 99 mEQ/L (98-107) Carbon Dioxide Level 26 mEQ/L (20-30) Anion Gap 21 (5-15) H Blood Urea Nitrogen 65 mg/dL (7-23) H Creatinine 6.0 mg/dL (0.7-1.2) H Estimat Glomerular Filtration Rate 9.3 mL/min (>60) Glucose Level 90 mg/dL (74-106) Calcium Level 9.9 mg/dL (8.6-10.2) Phosphorus Level 5.6 mg/dL (2.5-4.8) H Intake and Output 10/08/16 10/09/16 19:00 07:00 Intake Total 1034 ml 1013 ml Output Total 4 ml Balance 1034 ml 1009 ml IV Total 914 ml 913 ml Other 120 ml 100 ml Stool Total 4 ml # Voids 1 # Bowel Movements 8 5 Objective General Appearance: WD/WN, lethargic EENT: PERRL/EOMI, normal ENT inspection, TMs normal Neck: non-tender, normal alignment, supple Cardiovascular: normal peripheral pulses, normal rate, regular rhythm, no gallop/murmur, no JVD Respiratory/Chest: Trach; Mech vent; chest wall non-tender, crackles/rales, rhonchi - bilaterally, expiratory wheezing Abdomen: normal bowel sounds, non tender, soft, no organomegaly Skin: normal pigmentation, warm/dry Assessment/Plan Problem List: (1) HTN (hypertension) Assessment & Plan: Cont amlodipine. (2) Hyperkalemia (3) Respiratory failure with hypoxia Assessment & Plan: Intubated and sedated. S/P Tracheostomy 09/24/16. (4) ESRD (end stage renal disease) Assessment & Plan: See nephrology note. next Hemodialysis 10/07/16 per nephrology (5) CHF (congestive heart failure) (6) Diabetes mellitus Assessment & Plan: Cont novolog sliding scale. 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 Continue depakote and dilantin (9) Anoxic encephalopathy syndrome Assessment & Plan: See neruo note. (10) Enterobacter sepsis (11) Pneumonia Assessment & Plan: Enterobacter. Cont zosyn per ID (12) Anemia (13) Dysphagia Assessment & Plan: S/P PEG 09/23/16. (14) Cholecystitis, acute Assessment & Plan: See Surgery note. Not surgical candidate at this time. Continue zosyn per ID (15) Pancreatitis, acute Assessment & Plan: Improving amylase and lipase. See GI note. Hold tube feeds ; continue TPN. (16) Fever Assessment & Plan: See ID note. Assessment/Plan See case management note for discharge planning. Discussed with son and at bedside. FILIBERTO CLANCY Oct 09, 2016 17:51
--- NOTE | 2016-10-09 17:52 | Cardiology Progress Note ---
Assessment/Plan Assessment/Plan cardiopulm arrest anoxic encephalopathy esrd on hd noncompliant with dialysis htn chronic diastolic failure hx cad status epilepticus fever UGIB possible DM gastroparesis Acute pancreatitis, presumed due to gallstone pancreatic enzyme on down trend dialysis as sched bp seems at time labile d/w family at [facility] trasfered to [facility] remains agitatted move all 4 ext but nto respond or communicate is on tpn diarrhea per rn c diff neg Subjective Subjective on vent not comminicative not responsive moves around sitter at bedside to help prevent self inflicted problems Objective Last 24 Hour Vital Signs Date Time Temp Pulse Resp B/P Pulse Ox O2 Delivery O2 Flow Rate FiO2 10/09/16 17:40 150/68 10/09/16 16:49 105 29 35 10/09/16 16:18 Mechanical Ventilator 100.0 35 10/09/16 16:10 97.7 97 18 108/50 100 Mechanical Ventilator 10/09/16 16:00 35 10/09/16 15:46 104 10/09/16 15:15 105 29 35 10/09/16 12:43 100 25 35 10/09/16 12:40 Mechanical Ventilator 100.0 35 10/09/16 12:00 35 10/09/16 12:00 97.0 92 20 123/50 100 Mechanical Ventilator 35 10/09/16 12:00 97 10/09/16 10:46 94 21 35 10/09/16 08:48 142/86 10/09/16 08:47 94 142/86 10/09/16 08:35 94 25 35 10/09/16 08:00 97 10/09/16 08:00 99.1 101 20 142/86 100 Mechanical Ventilator 10/09/16 08:00 35 10/09/16 07:16 107 23 35 10/09/16 05:01 91 14 35 10/09/16 04:00 35 10/09/16 04:00 92 10/09/16 04:00 99.1 97 20 126/69 100 Mechanical Ventilator 10/09/16 03:01 94 29 35 10/09/16 01:30 103 32 35 10/09/16 00:00 85 10/09/16 00:00 35 10/08/16 23:48 99.8 88 17 101/48 100 Mechanical Ventilator 10/08/16 23:30 91 30 35 10/08/16 21:30 96 20 35 10/08/16 20:00 35 10/08/16 20:00 96 10/08/16 19:54 99.4 98 20 118/66 100 Mechanical Ventilator 10/08/16 19:30 100 27 35 General Appearance: no apparent distress, agitated, on vent Neck: no JVD Cardiovascular: normal rate, regular rhythm Respiratory/Chest: lungs clear, normal breath sounds Abdomen: non tender, soft Extremities: no swelling Intake and Output 10/08/16 10/09/16 19:00 07:00 Intake Total 1034 ml 1013 ml Output Total 4 ml Balance 1034 ml 1009 ml IV Total 914 ml 913 ml Other 120 ml 100 ml Stool Total 4 ml # Voids 1 # Bowel Movements 8 5 Laboratory Tests Test 10/09/16 13:55 White Blood Count 11.6 K/UL (4.8-10.8) H Red Blood Count 2.57 M/UL (4.70-6.10) L Hemoglobin 8.0 G/DL (14.2-18.0) L Hematocrit 24.8 % (42.0-52.0) L Mean Corpuscular Volume 96 FL (80-99) Mean Corpuscular Hemoglobin 31.2 PG (27.0-31.0) H Mean Corpuscular Hemoglobin Concent 32.4 G/DL (32.0-36.0) Red Cell Distribution Width 16.9 % (11.6-14.8) H Platelet Count 345 K/UL (150-450) Mean Platelet Volume 5.2 FL (6.5-10.1) L Neutrophils (%) (Auto) 64.1 % (45.0-75.0) Lymphocytes (%) (Auto) 14.1 % (20.0-45.0) L Monocytes (%) (Auto) 16.5 % (1.0-10.0) H Eosinophils (%) (Auto) 1.2 % (0.0-3.0) Basophils (%) (Auto) 4.1 % (0.0-2.0) H Sodium Level 146 mEQ/L (135-145) H Potassium Level 4.1 mEQ/L (3.4-4.9) Chloride Level 99 mEQ/L (98-107) Carbon Dioxide Level 26 mEQ/L (20-30) Anion Gap 21 (5-15) H Blood Urea Nitrogen 65 mg/dL (7-23) H Creatinine 6.0 mg/dL (0.7-1.2) H Estimat Glomerular Filtration Rate 9.3 mL/min (>60) Glucose Level 90 mg/dL (74-106) Calcium Level 9.9 mg/dL (8.6-10.2) Phosphorus Level 5.6 mg/dL (2.5-4.8) H HUSSEIN CAGE Oct 09, 2016 17:52
[2016-10-09 20:00] VITALS: BP 122/61
[2016-10-09] MEDS ORDERED: NS 275ml ONE (20:49)
[2016-10-09] MEDS ORDERED: Tubing IV Secondary IV ONE (20:49)
--- NOTE | 2016-10-10 23:51 | Discharge Summary ---
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
--- NOTE | 2016-10-11 17:30 | Discharge Summary 2 SIG ---
DATE OF ADMISSION: 09/06/2016 DATE OF DISCHARGE: 10/09/2016 CONSULTANTS: 1. Tyler Shaffer M.D. 2. Dejuan Wahl M.D. 3. Kermit Arriaga M.D. 4. Natalie Arias M.D. 5. Svitlana Garsia M.D. 6. Star Bautista M.D. 7. Jad Merino M.D. 8. José Miguel Delatorre M.D. 9. Kartik Carcamo M.D. BRIEF HOSPITAL COURSE: The patient is a 71-year-old [place] male with history of end-stage renal disease, presented to ED complaining of shortness of breath and weakness. He has a history of end-stage renal failure and is on dialysis every Thursday, , and Thursday. On evaluation at the ED, the patient complained of shortness of breath and weakness and was given breathing treatment. He was initially noted to be hypoxemic and O2 saturation 80s and was started on BiPAP at ED, was given IV calcium for hyperkalemia as well as albuterol nebulizer treatments. X-ray showed pulmonary vascular congestion. The patient was admitted to [facility] for fluid overload as well as hyperkalemia. Following day, the patient was noted to be unresponsive and Code Blue was called. The patient was transferred to ICU and was intubated and sedated. He was started on Zosyn and was followed by Infectious Disease specialist for probable aspiration pneumonia and was followed by Dr. Merino, transition mgr rn. Chest x-ray done showed pulmonary edema. Dr. Bautista was also consulted to evaluate onset of paroxysmal activities following cardiac arrest. As the patient remained unresponsive and had intermittent generalized jerks resembling ongoing seizure activities, he was given Ativan and was loaded with Dilantin. A stat CT of the brain revealed no acute intracranial abnormalities. No midline shift. No hemorrhage. He was also followed by Cardiology service. Asystole was assumed to be possibly due to hyperkalemia plus vasovagal episode. He was given dopamine and was started on tube feeding for enteral nutritional support. However, given longstanding history of diabetes with likely diabetic gastroparesis. The patient was having high residual. He was given maximal proton pump inhibitor support intravenously and Zantac and was given IV Reglan. There was failure for the patient to be weaned as there was excess secretions and had poor mental status. He was also given Dilantin and Depakote for seizure activity and was given Versed drip. Stay was also complicated as labs showed elevated amylase and lipase. Culture showed growth of Enterobacter and was continued on Zosyn. He underwent tracheostomy placement by Dr. Arriaga. He underwent an EGD with G-tube placement by Dr. Arias on 09/23/[address] Arriaga on 09/24/2016. He underwent esophagogastroduodenoscopy on 10/04/2016 with findings of GERD and esophagitis. EEG done showed continuous bursts of spike and slow wave generalized transients followed by suppression coinciding with leg twitching pattern seems abnormality represents a burst suppression pattern with what seems to be generalized epileptogenic activity. He was evaluated by Dr. Wahl for evaluation of pancreatitis and gallstones. Liver function tests are normal except for minimal elevation of alkaline phosphatase. Pancreatitis may have been caused by passage of a common duct stone as there was no evidence of biliary tract obstruction and no indication for urgent surgical intervention. HIDA scan was negative and pancreatic enzymes were down trending. G-tube feeds were placed on hold and the patient was started on TPN. He was eventually transferred to [place]. FINAL DIAGNOSES: 1. Acute respiratory failure, status post tracheostomy. 2. Acute anoxic encephalopathy. 3. End-stage renal disease. 4. Acute pancreatitis. 5. Hypertension. 6. End-stage renal disease, on hemodialysis. 7. Chronic diastolic heart failure. 8. Status epilepticus. 9. Upper gastrointestinal bleed. 10. Possible diabetic gastroparesis. 11. Anemia. 12. Dysphagia, status post percutaneous endoscopic gastrostomy. 13. Chronic obstructive pulmonary disease. 14. Hyperkalemia. 15. Hypertension. 16. Status post cardiac arrest. Harrison Delatorre M.D. I have been assigned to dictate discharge summary on this account and I was not involved in the patient's management. Meghan Pandey N.P. DR: TOR JOB#: [id number] CC:
== END 2016-10-09 20:50 | DRG 5 ==
LOC: EMR 20:05 → 2W 20:18 → EDBEDREQSVC 20:48 → EDBEDREQ 20:48 → ICU 09-07 00:06 → 2W 09-26 11:30
PROC: 5A1955Z Respiratory Ventilation, Greater than 96 Consecutive Hours (ICD-10-PCS; principal; 2016-09-07)
PROC: 0BH17EZ Insertion of Endotracheal Airway into Trachea, Via Natural or Artificial Opening (ICD-10-PCS; 2016-09-07)
PROC: 5A1D60Z (ICD-10-PCS; 2016-09-07)
PROC: 06H033Z Insertion of Infusion Device into Inferior Vena Cava, Percutaneous Approach (ICD-10-PCS; 2016-09-10)
PROC: B549ZZA Ultrasonography of Inferior Vena Cava, Guidance (ICD-10-PCS; 2016-09-10)
PROC: 0DH63UZ Insertion of Feeding Device into Stomach, Percutaneous Approach (ICD-10-PCS; 2016-09-23)
PROC: 0B110F4 Bypass Trachea to Cutaneous with Tracheostomy Device, Open Approach (ICD-10-PCS; 2016-09-24)
PROC: 0DJ08ZZ Inspection of Upper Intestinal Tract, Via Natural or Artificial Opening Endoscopic (ICD-10-PCS; 2016-10-04)
DX: E87.5 Hyperkalemia (principal); J69.0 Pneumonitis due to inhalation of food and vomit; A41.59 Other Gram-negative sepsis; J15.6 Pneumonia due to other Gram-negative bacteria; G93.1 Anoxic brain damage, not elsewhere classified; I13.2 Hypertensive heart and chronic kidney disease with heart failure and with stage 5 chronic kidney disease, or end stage renal disease; K85.10 Biliary acute pancreatitis without necrosis or infection; I46.9 Cardiac arrest, cause unspecified; J96.91 Respiratory failure, unspecified with hypoxia; R13.10 Dysphagia, unspecified; N18.6 End stage renal disease; J44.9 Chronic obstructive pulmonary disease, unspecified; Z99.2 Dependence on renal dialysis; I25.10 Atherosclerotic heart disease of native coronary artery without angina pectoris; E78.00 Pure hypercholesterolemia, unspecified; N40.0 Benign prostatic hyperplasia without lower urinary tract symptoms; G40.901 Epilepsy, unspecified, not intractable, with status epilepticus; E11.22 Type 2 diabetes mellitus with diabetic chronic kidney disease; I50.32 Chronic diastolic (congestive) heart failure; E11.42 Type 2 diabetes mellitus with diabetic polyneuropathy; E11.43 Type 2 diabetes mellitus with diabetic autonomic (poly)neuropathy; K31.84 Gastroparesis; E11.319 Type 2 diabetes mellitus with unspecified diabetic retinopathy without macular edema; Z99.11 Dependence on respirator [ventilator] status; Z91.15 Patient's noncompliance with renal dialysis; E87.70 Fluid overload, unspecified; E83.52 Hypercalcemia; K92.2 Gastrointestinal hemorrhage, unspecified; K21.0 Gastro-esophageal reflux disease with esophagitis; K81.9 Cholecystitis, unspecified; D63.1 Anemia in chronic kidney disease
CPT/HCPCS: 36415; 36569; 36600; 70450; 71010; 74000; 74176; 74177; 78266; 80048; 80053; 80061; 80076; 80164; 80185; 80202; 80299; 82150; 82803; 82962; 83540; 83550; 83690; 83735; 84100; 84484; 85007; 85025; 85610; 85730; 86705; 86709; 86803; 86850; 86900; 86901; 86920; 87040; 87070; 87081; 87086; 87181; 87205; 87324; 87340; 92950; 93005; 93306; 93971; 94002; 94003; 94150; 94640; 94660; 94664; 95819; J0171; J1165; J1815; J2250; J2765; J7620